=== PATIENT | male | born 1945 | race Caucasian/White ===

== ENCOUNTER 2019-08-02 10:20 | Outpatient (CLI) | payer MEDICARE, OTHER, SELFPAY ==
--- NOTE | ~2019-08-02 | XR_ITS ---
XR chest 2V DATE: 08/02/2019 10:40 INDICATION: Shortness of breath. History of hypertension. TECHNIQUE: PA and lateral views COMPARISON: 03/22/2018 two-view chest FINDINGS: Borderline heart size. Aortic calcification and mild tortuosity. No hilar or mediastinal en largement. No pulmonary infiltrate or consolidation, pleural effusion or pulmonary vascular congestion or pneumo thorax. There is postoperative change in the region of the diaphragmatic hiatus. There is degenerative spurring of the thoracic and lumbar spine. IMPRESSION: No active disease or significant change since 03/22/2018 Reviewed, dictated and finalized at location B. ER[facility] OR MUSEUM ATTENDANT
== END 2019-08-02 10:21 | disposition home or self-care (01) ==
LOC: ANHIMG 10:26
PROVIDERS: PCP Internal Medicine; Visit Provider Internal Medicine
DX: R06.02 Shortness of breath (principal); I10 Essential (primary) hypertension
CPT/HCPCS: 71046

== ENCOUNTER 2019-09-23 08:53 | Emergency (ER) | payer MEDICARE, OTHER, SELFPAY ==
[2019-09-23 09:05] VITALS: BP 155/84; PULSE 65; RESP 16; TEMP 37.1; O2SAT 98
--- NOTE | 2019-09-23 09:14 | ED.EAR ---
HPI - Ear Problem General Chief complaint: Ear Stated complaint: Ear/Nose/Throat Time Seen by Provider: 09/23/19 09:14 Source: patient and RN notes reviewed Mode of arrival: ambulatory Limitations: no limitations History of Present Illness HPI Narrative: 74-year-old male presents with concern for left ear pain. Reports approximately 1 week history of feeling of water on his left ear, popping and clicking sounds. Denies drainage from the ear. He denies sinus congestion, sinus drainage, cough, fever, shortness of breath, headache. MD Complaint: ear pain Related Data Home Medications Medication Instructions Recorded Confirmed xmrwmga-otfodujfropce-vgwmuprd 250 1 tablet PO Q4-6H PRN 04/10/19 mg-250 mg-65 mg tablet lorazepam 0.5 mg tablet 0.5 mg PO TID PRN 04/10/19 meloxicam 15 mg tablet 15 mg PO DAILY 04/10/19 Allergies Allergy/AdvReac Type Severity Reaction Status Date / Time Sulfa (Sulfonamide Allergy Unknown Other Verified 08/03/19 07:32 Antibiotics) Review of Systems Review of Systems: Narrative: CONSTITUTIONAL: Denies malaise, chills, sweats, or fever. EYES: Denies visual changes, redness, or discharge. ENT: Reports rhinorrhea, congestion, sinus pain, and sore throat. Reports right ear pain, denies drainage CARDIOVASCULAR: Denies chest pain, palpitations, or edema. RESPIRATORY: Denies cough or dyspnea. SKIN: Denies rash or itching. MUSCULOSKELETAL: Denies myalgia. NEUROLOGIC: Denies headache. All systems reviewed & are unremarkable except as noted in HPI and below PMFSH Social History Social History Smoking end date: 06/14/88 Alcohol intake: current Comments At time of signature, agree with nursing past medical, surgical, social and family history. There is no relevant family history pertinent to the presenting complaint Exam Narrative: Exam Narrative: GENERAL: Well-appearing, well-nourished, and in no acute distress. HEAD: Normocephalic EYES: PERRLA, conjunctivae clear ENT: Nares clear, turbinates erythematous, clear discharge. Mucous membranes moist. TM pearly kelly with dull light reflex bilaterally, left otitis effusion; no tragal tenderness. Oropharynx not erythematous without lesions. Tonsils not enlarged and without exudate, no drooling, no hoarseness, no trismus, uvula midline. NECK: Supple. No lymphadenopathy CHEST: Clear to auscultation, breath sounds equal. No wheezing, rhonchi, rales, or stridor. No respiratory distress, speaks in full sentences. HEART: Regular rate and rhythm. No murmur heard. SKIN: Warm, dry, no rash. NEURO: Alert and oriented x3. PSYCH: Normal mood and affect Course Course Emergency Course: Patient is aware of diagnosis, understands and agrees to treatment plan. Anticipatory guidance given. Patient agrees to follow-up as directed and is aware of reasons to seek care at the emergency department. Portions of this record may have been created with voice recognition software Vital Signs Vital signs: Vital Signs Temperature 98.7 F 09/23/19 09:05 Pulse Rate 65 09/23/19 09:05 Respiratory Rate 16 09/23/19 09:05 Blood Pressure 155/84 H 09/23/19 09:05 Pulse Oximetry 98 09/23/19 09:05 Temperature 98.7 F 09/23/19 09:05 Pulse Rate 65 09/23/19 09:05 Respiratory Rate 16 09/23/19 09:05 Blood Pressure 155/84 H 09/23/19 09:05 Pulse Oximetry 98 09/23/19 09:05 Reviewed. Patient has history of hypertension Medical Decision Making MDM Narrative Medical decision making narrative: Differential diagnosis considered: Strep pharyngitis, allergic rhinitis, upper respiratory tract infection, sinusitis, rhinosinusitis, nasopharyngitis. viral pharyngitis, otitis media, otitis externa, otitis effusion, cerumen impaction, pneumonia, bronchitis, viral cough syndrome, viral syndrome, and influenza. Exam findings show no acute concerns or changes; patient is non-toxic appearing and is in no distress.
== END 2019-09-23 09:32 | disposition home or self-care (01) ==
PROVIDERS: Emergency Provider Nurse Practitioner; PCP Internal Medicine
DX: H92.02 Otalgia, left ear (principal); Z79.02 Long term (current) use of antithrombotics/antiplatelets; E78.00 Pure hypercholesterolemia, unspecified; I10 Essential (primary) hypertension
CPT/HCPCS: 99213; G0463

== ENCOUNTER 2019-12-30 06:39 | Outpatient (CLI) | payer MEDICARE, OTHER, SELFPAY ==
[2019-12-30 07:23] LABS: Hematocrit 43.6 % (42.0-52.0); Hemoglobin 14.3 g/dL (14.0-18.0)
[2019-12-30 07:44] LABS: Alanine Aminotransferase 19 U/L (4-50); Albumin Level 4.1 g/dL (3.5-5.1); Alkaline Phosphatase 89 U/L (38-126); Aspartate Amino Transferase 23 U/L (17-59); Bilirubin,Total 0.7 mg/dL (0.2-1.3); Blood Urea Nitrogen 21 mg/dL (9-20); Calcium 8.7 mg/dL (8.4-10.2); Carbon Dioxide 28 mmol/L (22-30); Chloride 104 mmol/L (98-107); Cholesterol 175 mg/dL (0-200); Estimated Glomerular Filt Rate > 60; Glucose 109 mg/dL (75-110); HDL Direct 55 mg/dL; Potassium 4.2 mmol/L (3.4-5.0); Sodium 137 mmol/L (137-145); Triglycerides 59 mg/dL (<150)
[2019-12-30 07:55] LABS: LDL Cholesterol Direct 89 mg/dL
[2019-12-30 08:24] LABS: Iron 75 ug/dL (49-181)
== END 2019-12-30 06:40 | disposition home or self-care (01) ==
PROVIDERS: PCP Internal Medicine; Visit Provider Internal Medicine
DX: E78.5 Hyperlipidemia, unspecified (principal); I10 Essential (primary) hypertension; D64.9 Anemia, unspecified
CPT/HCPCS: 36415; 80053; 80061; 83540; 85014; 85018

== ENCOUNTER 2020-08-02 08:15 | Outpatient (RCR) | payer MEDICARE, OTHER, SELFPAY ==
[2020-07-10 09:46] VITALS: BP_SYST 121
--- NOTE | 2020-07-10 10:51 | PTOPEVAL ---
Thank you for referring Rodney Watson to [facility].? The patient is scheduled to be seen for therapy? 2 x/week for 4 weeks. Please review, sign, date and return this plan of care SELENA. I agree with and certify that the following plan of care is medically necessary. Referring Physician Date Attending Provider: Paul Berkowitz DO Referring Provider: SAMRA Outpatient Evaluation Start: 07/10/20 09:43 Freq: Status: Active Protocol: Document 07/10/20 09:46 AVINASH (Rec: 07/10/20 10:50 AVINASH [id number]) Therapy Assessment Status Assessment Status Assessment Status Evaluation Outpatient Past Medical History Past Medical History Source of Past Medical History Patient,Recalled from Previous Visit, Confirmed with Patient /Family Cardiovascular History Hx Hypercholesterolemia Yes Hx Hypertension Yes Musculoskeletal History Hx Other Musculoskeletal Disorders Yes: left shoulder pain Psychosocial History Hx Anxiety Yes Evaluation Information Problem Diagnosis left shoulder pain Onset 1 month Cause unknown Subjective Information Reports he is having left Query Text:As Reported By Patient/ shoulder pain limiting Family performance with daily activities. He pain with reaching activities. Reports pain with putting shirts/ jackets on due to pain with left shoulder. Denies problems with sleeping or carrying objects. He carries most objects with right hand. Denies problems with driving or using the computer. He does not perform a regular fitness program. His activities are mostly sedentary. Pain Assessment Timing of Pain Assessment Timing of Pain Assessment Assessment Pain Scale Pain Scale Used Numeric (1 - 10) Self Report Pain Assessment Left Shoulder(s) Reported Pain Level 0 Pain Description Sharp Pain Frequency Intermittent Lowest Pain Intensity 0 Greatest Pain Intensity 4 Pain Score Pain Score 0: Self Report Interventions Used Pain Relief Interventions Used By None Patient Upper Extremity Range of Motion Scapular/ Shoulder Range of Motion Right Shoulder Flexion - Active 148 Shoulder Extension - Active
--- NOTE | 2020-07-18 12:30 | PCPTNOTE ---
Patient called & cancelled scheduled appointment on 07/19/20.
--- NOTE | 2020-07-30 09:05 | PCPTNOTE ---
Patient called & cancelled scheduled appointment this date due to bad weather.
--- NOTE | 2020-08-02 10:50 | PCPTNOTE ---
Admitting Provider: Attending Provider: Paul Berkowitz DO Patient:Rodney Watson Date of :1945 Discharge Note Patient has been seen for 6 therapy visits from 07/10/20 to 08/02/20. He demonstrates improved shoulder range bilateral, improved shoulder strength, improve pain with ability to perform reaching task without limitations. He demonstrates independence with his home program. He demonstrates improved awareness of joint position and benefits of exercise to improve symptoms and maintain function. The goals have been partially met at this time. Plan for discharge with Rodney to continue with his home program to maintain function. Thank you for referring this patient to [facility]. Please review, sign, date and return this discharge summary SELENA. I have been updated about the patient's current status and I agree with discharge from the above service at this time. Referring Physician Date
== END 2020-08-02 12:25 | disposition home or self-care (01) ==
LOC: ANHPT 08:15
PROVIDERS: Family Provider Internal Medicine; PCP Internal Medicine; Visit Provider Internal Medicine
DX: M25.512 Pain in left shoulder (principal)
CPT/HCPCS: 97110; 97140; 97161

== ENCOUNTER 2020-12-26 06:44 | Outpatient (CLI) | payer MEDICARE, OTHER, SELFPAY ==
[2020-12-26 07:41] LABS: Hematocrit 40.8 % (42.0-52.0); Hemoglobin 13.2 g/dL (14.0-18.0)
[2020-12-26 07:45] LABS: Alanine Aminotransferase 22 U/L (4-50); Alkaline Phosphatase 74 U/L (38-126); Anion Gap 8 mmol/L (8-16); Aspartate Amino Transferase 26 U/L (17-59); Bilirubin,Total 0.7 mg/dL (0.2-1.3); Blood Urea Nitrogen 29 mg/dL (9-20); Calcium 8.9 mg/dL (8.4-10.2); Carbon Dioxide 26 mmol/L (22-30); Chloride 104 mmol/L (98-107); Cholesterol 183 mg/dL (0-200); Estimated Glomerular Filt Rate > 60; Glucose 107 mg/dL (75-110); HDL Direct 58 mg/dL; Potassium 4.1 mmol/L (3.4-5.0); Sodium 138 mmol/L (137-145); Triglycerides 61 mg/dL (<150)
[2020-12-26 07:56] LABS: LDL Cholesterol Direct 80 mg/dL
[2020-12-26 08:11] LABS: Iron 48 ug/dL (49-181)
[2020-12-26 08:21] LABS: Percent Iron Saturation 18 % (20-50)
== END 2020-12-26 06:45 | disposition home or self-care (01) ==
LOC: ANHLAB 06:47
PROVIDERS: PCP Internal Medicine; Visit Provider Internal Medicine
DX: I10 Essential (primary) hypertension (principal); Z79.899 Other long term (current) drug therapy; E78.5 Hyperlipidemia, unspecified; D64.9 Anemia, unspecified; D50.9 Iron deficiency anemia, unspecified
CPT/HCPCS: 36415; 80053; 80061; 83540; 83550; 85014; 85018

== ENCOUNTER 2021-05-24 07:23 | Outpatient (CLI) | payer MEDICARE, OTHER, SELFPAY ==
[2021-05-24 07:57] LABS: Hematocrit 43.4 % (42.0-52.0); Hemoglobin 14.2 g/dL (14.0-18.0); Mean Corpuscular HGB Conc 32.7 g/dl (32-36); Mean Corpuscular Hemoglobin 31.8 pg (26-34); Mean Corpuscular Volume 97.3 fl (80-100); Mean Platelet Volume 9.7 fl (7.4-10.4); Platelet Count Result 259 k/mm3 (150-375); Red Blood Count 4.46 M/mm3 (4.6-6.20); Red Cell Distribution Width 12.9 % (11.5-14.5); White Blood Count 4.4 K/mm3 (4.5-10.0)
[2021-05-24 08:00] LABS: Add Urine Microscopic? NO; Appearance Urine Clear (Clear); Bilirubin Urine Negative (Negative); Blood Urine Negative (Negative); Color Urine Yellow (Yellow); Glucose Urine UA Negative (Negative); Ketones Urine Negative (Negative); Leukocyte Esterase Ur Negative LEU/UL (Negative); Nitrate Urine Negative (Negative); Protein Urine Negative (Negative); Specific Grav Ur 1.021 (1.001-1.035); Urobilinogen Urine Negative mg/dL (<2.0)
[2021-05-24 08:11] LABS: Alanine Aminotransferase 21 U/L (4-50); Albumin Level 4.2 g/dL (3.5-5.1); Alkaline Phosphatase 77 U/L (38-126); Anion Gap 9 mmol/L (8-16); Aspartate Amino Transferase 24 U/L (17-59); Bilirubin,Total 0.7 mg/dL (0.2-1.3); Blood Urea Nitrogen 23 mg/dL (9-20); Calcium 8.9 mg/dL (8.4-10.2); Carbon Dioxide 27 mmol/L (22-30); Chloride 101 mmol/L (98-107); Estimated Glomerular Filt Rate > 60; Glucose 114 mg/dL (65-110); Potassium 3.8 mmol/L (3.4-5.0); Sodium 137 mmol/L (137-145)
[2021-05-24 09:24] LABS: Iron 62 ug/dL (49-181)
[2021-05-24 09:33] LABS: Percent Iron Saturation 22 % (20-50)
== END 2021-05-24 07:24 | disposition home or self-care (01) ==
PROVIDERS: PCP Internal Medicine; Visit Provider Nurse Practitioner
DX: D50.9 Iron deficiency anemia, unspecified (principal); R63.4 Abnormal weight loss; I10 Essential (primary) hypertension
CPT/HCPCS: 36415; 80053; 81003; 83540; 83550; 84443; 85027

== ENCOUNTER 2021-05-30 09:57 | Outpatient (CLI) | payer MEDICARE, OTHER, SELFPAY ==
--- NOTE | ~2021-05-30 | CT_ITS ---
EXAMINATION: CT chest abdomen pelvis wo con DATE: 05/30/2021 10:40 INDICATION: Hypotension weight loss TECHNIQUE: Transaxial computed tomographic images of the chest, abdomen, and pelvis were obtained wit hout intravenous contrast. The dose-length product (DLP) was 986.79 mGy-cm. Automated exposure contro l and iterative reconstruction technique were employed. COMPARISON: 03/08/2018 FINDINGS: CHEST CT: There is chronic atelectasis or scarring of the left upper lobe. The lungs are free of acute opacitie s. There is no pleural effusion or pneumothorax. No pathologically enlarged thoracic lymph nodes are identified. The heart size is normal. Calcified coronary artery atherosclerosis is noted. There is a soft tissue lipoma in the right axillary region. There is moderate thoracic spondylosis. ABDOMEN/PELVIS CT: There are surgical changes at the gastroesophageal junction. The liver, spleen, pancreas, gallbladder , and adrenal glands are normal. There is a 6 cm cyst of the left kidney. The right kidney is unremar kable. No pathologically enlarged abdominal or pelvic lymph nodes are identified. There is no free in traperitoneal gas or evidence of bowel obstruction. Colonic diverticulosis is present without evidenc e of diverticulitis. The appendix is normal. There is a right inguinal hernia containing fat. Changes of left inguinal hernia repair are noted. There is severe lumbar spondylosis. IMPRESSION: 1. No CT correlate for the patient's symptoms. Reviewed, dictated and finalized at location A. CAL ASSISTANT OB GYN
== END 2021-05-30 09:58 | disposition home or self-care (01) ==
LOC: ANHIMG 10:04
PROVIDERS: PCP Internal Medicine; Visit Provider Nurse Practitioner
DX: R63.4 Abnormal weight loss (principal)
CPT/HCPCS: 71250; 74176

== ENCOUNTER 2021-08-08 08:08 | Outpatient (CLI) | payer MEDICARE, OTHER, SELFPAY ==
[2021-08-08 09:47] LABS: Prostate Specific Antigen 2.5 ng/mL (< OR = 4.0)
== END 2021-08-08 08:09 | disposition home or self-care (01) ==
PROVIDERS: PCP Internal Medicine; Visit Provider Internal Medicine
DX: Z12.5 Encounter for screening for malignant neoplasm of prostate (principal)
CPT/HCPCS: 36415; 84153; G0103

== ENCOUNTER 2022-02-09 06:36 | Outpatient (CLI) | payer MEDICARE, OTHER, SELFPAY ==
[2022-02-09 06:54] LABS: Basophils Percent Auto 0.7 % (0.2-1.2); Eosinophils Absolute Auto 0.2 K/mm3 (0-0.3); Eosinophils Percent Auto 3.4 % (0-4.4); Hematocrit 43.9 % (42.0-52.0); Immature Granulocyte Absolute 0.01 K/mm3 (0.00-0.031); Immature Granulocyte Percent A 0.2 % (0-0.5); Lymphocytes Absolute Auto 0.88 K/mm3 (0.9-3.2); Mean Corpuscular HGB Conc 31.9 g/dl (32-36); Mean Corpuscular Volume 97.1 fl (80-100); Mean Platelet Volume 9.2 fl (7.4-10.4); Monocytes Absolute Auto 0.4 K/mm3 (0.1-0.6); Monocytes Percent Auto 8.8 % (2.6-8.5); Neutrophils Percent Auto 66.9 % (45.5-73.1); Platelet Count Result 243 k/mm3 (150-375); Red Blood Count 4.52 M/mm3 (4.6-6.20); Red Cell Distribution Width 13.1 % (11.5-14.5); White Blood Count 4.4 K/mm3 (4.5-10.0)
[2022-02-09 07:04] LABS: Alanine Aminotransferase 24 U/L (6-50); Albumin Level 4.2 g/dL (3.5-5.1); Alkaline Phosphatase 78 U/L (38-126); Anion Gap 3 mmol/L (8-16); Aspartate Amino Transferase 24 U/L (17-59); Bilirubin,Total 0.5 mg/dL (0.2-1.3); Blood Urea Nitrogen 25 mg/dL (9-20); Calcium 8.5 mg/dL (8.4-10.2); Carbon Dioxide 27 mmol/L (22-30); Chloride 106 mmol/L (98-107); Cholesterol 180 mg/dL (0-200); Estimated Glomerular Filt Rate > 60; Glucose 133 mg/dL (65-110); HDL Direct 66 mg/dL; Potassium 4.1 mmol/L (3.4-5.0); Sodium 136 mmol/L (137-145); Triglycerides 70 mg/dL (<150)
[2022-02-09 07:11] LABS: Iron 61 ug/dL (49-181)
[2022-02-09 07:15] LABS: LDL Cholesterol Direct 79 mg/dL
[2022-02-09 07:20] LABS: Percent Iron Saturation 21 % (20-50)
[2022-02-09 09:12] LABS: Hemoglobin A1C 5.3 % (<5.7)
== END 2022-02-09 06:37 | disposition home or self-care (01) ==
PROVIDERS: PCP Internal Medicine; Visit Provider Internal Medicine
DX: G47.62 Sleep related leg cramps (principal); I10 Essential (primary) hypertension; Z79.899 Other long term (current) drug therapy; E78.5 Hyperlipidemia, unspecified; D50.9 Iron deficiency anemia, unspecified; R73.01 Impaired fasting glucose
CPT/HCPCS: 36415; 80053; 80061; 83036; 83540; 83550; 85025

== ENCOUNTER 2022-08-06 07:28 | Outpatient (CLI) | payer MEDICARE, OTHER, SELFPAY ==
[2022-08-06 07:56] LABS: Alanine Aminotransferase 35 U/L (6-50); Albumin Level 4.2 g/dL (3.5-5.1); Alkaline Phosphatase 72 U/L (38-126); Anion Gap 5 mmol/L (8-16); Aspartate Amino Transferase 49 U/L (17-59); Bilirubin,Total 1.1 mg/dL (0.2-1.3); Blood Urea Nitrogen 27 mg/dL (9-20); Calcium 8.5 mg/dL (8.4-10.2); Carbon Dioxide 30 mmol/L (22-30); Chloride 108 mmol/L (98-107); Cholesterol 173 mg/dL (0-200); Estimated Glomerular Filt Rate > 60; Glucose 114 mg/dL (65-110); HDL Direct 58 mg/dL; Potassium 3.7 mmol/L (3.4-5.0); Sodium 143 mmol/L (137-145); Triglycerides 54 mg/dL (<150)
[2022-08-06 07:57] LABS: Hemoglobin A1C 5.3 % (<5.7)
[2022-08-06 08:08] LABS: LDL Cholesterol Direct 78 mg/dL
== END 2022-08-06 07:29 | disposition home or self-care (01) ==
PROVIDERS: PCP Internal Medicine; Visit Provider Internal Medicine
DX: R73.01 Impaired fasting glucose (principal); E78.5 Hyperlipidemia, unspecified; I10 Essential (primary) hypertension; Z79.899 Other long term (current) drug therapy
CPT/HCPCS: 36415; 80053; 80061; 83036

== ENCOUNTER 2022-12-13 13:30 | Outpatient (CLI) | payer MEDICARE, OTHER, SELFPAY ==
--- NOTE | ~2022-12-13 | MR_ITS ---
EXAMINATION: MR brain/brain stem wo con DATE: 12/13/2022 14:16 INDICATION: Dementia TECHNIQUE: Magnetic resonance imaging (MRI) of the brain and brainstem was performed without intraven ous contrast. Sequences included sagittal and axial T1-weighted SE, axial diffusion-weighted FS SE, a xial 3D SWAN, axial T2*-weighted GRE, axial T2-weighted FLAIR, and axial T2-weighted FSE. Postcontras t axial and coronal T1-weighted SE was obtained. Apparent diffusion coefficient (ADC) maps were creat ed. COMPARISON: None. FINDINGS: There are no areas of restricted diffusion to suggest acute infarction. No intracranial hemorrhage or abnormal intracranial mass lesion. There are scattered areas of nonspecific increased T2-weighted si gnal intensity in the cerebral white matter, predominantly involving the deep and periventricular whi te matter. There are no intraparenchymal signal abnormalities seen on the other pulse sequences. Symm etric prominence of the sulci and ventricles consistent with moderate age-appropriate diffuse cerebra l volume loss. There are no abnormal extra-axial fluid collections. Flow voids are seen in the cerebr al arteries on the T2-weighted sequences consistent with their expected patency. Changes of bilateral intraocular lens replacement. Visualized orbits and soft tissues are unremarkable. IMPRESSION: 1. No acute intracranial process. 2. Age-related changes including moderate diffuse volume loss and mild scattered periventricular pred ominant white matter T2 hyperintensity consistent with chronic small vessel ischemic disease. Reviewed, dictated and finalized at location A. IMPRESSION: 1. No acute intracranial process. 2. Age-related changes including moderate diffuse volume loss and mild scattere d periventricular predominant white matter T2 hyperintensity consistent with ch ronic small vessel ischemic disease.
== END 2022-12-13 13:31 | disposition home or self-care (01) ==
PROVIDERS: PCP Nurse Practitioner; Visit Provider Nurse Practitioner
DX: R41.3 Other amnesia (principal)
CPT/HCPCS: 70551

== ENCOUNTER 2023-02-23 08:17 | Outpatient (CLI) | payer MEDICARE, OTHER, SELFPAY ==
[2023-02-23 09:36] LABS: Hematocrit 42.4 % (42.0-52.0); Hemoglobin 13.8 g/dL (14.0-18.0); Mean Corpuscular HGB Conc 32.5 g/dl (32-36); Mean Corpuscular Hemoglobin 31.2 pg (26-34); Mean Corpuscular Volume 95.7 fl (80-100); Mean Platelet Volume 10.2 fl (7.4-10.4); Platelet Count Result 239 k/mm3 (150-375); Red Blood Count 4.43 M/mm3 (4.6-6.20); Red Cell Distribution Width 12.4 % (11.5-14.5); White Blood Count 6.2 K/mm3 (4.5-10.0)
[2023-02-23 09:39] LABS: Alanine Aminotransferase 36 U/L (6-50); Albumin Level 4.2 g/dL (3.5-5.1); Alkaline Phosphatase 70 U/L (38-126); Anion Gap 6 mmol/L (8-16); Aspartate Amino Transferase 32 U/L (17-59); Bilirubin,Total 0.8 mg/dL (0.2-1.3); Blood Urea Nitrogen 24 mg/dL (9-20); Calcium 8.8 mg/dL (8.4-10.2); Carbon Dioxide 30 mmol/L (22-30); Chloride 105 mmol/L (98-107); Estimated Glomerular Filt Rate > 60; Glucose 123 mg/dL (65-110); Potassium 3.3 mmol/L (3.4-5.0); Sodium 141 mmol/L (137-145)
[2023-02-23 10:11] LABS: Iron 57 ug/dL (49-181)
[2023-02-23 10:16] LABS: Hemoglobin A1C 5.4 % (<5.7)
[2023-02-23 10:21] LABS: Percent Iron Saturation 19 % (20-50)
== END 2023-02-23 08:18 | disposition home or self-care (01) ==
PROVIDERS: PCP Nurse Practitioner; Visit Provider Nurse Practitioner
DX: D50.9 Iron deficiency anemia, unspecified (principal); I10 Essential (primary) hypertension; R73.01 Impaired fasting glucose
CPT/HCPCS: 36415; 80053; 83036; 83540; 83550; 85027

== ENCOUNTER 2023-08-06 12:59 | Outpatient (CLI) | payer MEDICARE, OTHER, SELFPAY ==
--- NOTE | 2023-08-06 13:15 | ECG_ITS ---
Measurements Intervals [place] Rate: 66 P: UT: 0 QRS: 15 QRSD: 110 T: 14 QT: 415 QTc: 438 Interpretive Statements PROBABLE SINUS RHYTHM WITH PREMATURE ATRIAL CONTRACTIONS MARKED bASELINE ARTIFACT BORDERLINE ECG NO PREVIOUS ECG AVAILABLE FOR COMPARISON Electronically Signed On 08-07-2023 14:32:49 PRODUCT SAFETY MANAGER by Edson Martinez M.D.
== END 2023-08-06 13:00 | disposition home or self-care (01) ==
LOC: ANHSURGERY 13:05
PROVIDERS: PCP Nurse Practitioner; Visit Provider Surgery
DX: Z01.818 Encounter for other preprocedural examination (principal); I10 Essential (primary) hypertension; K40.91 Unilateral inguinal hernia, without obstruction or gangrene, recurrent; R93.1 Abnormal findings on diagnostic imaging of heart and coronary circulation
CPT/HCPCS: 36415; 86850; 86900; 86901; 93005

== ENCOUNTER 2023-08-10 00:54 | Day surgery (SDC) | payer MEDICARE, OTHER, SELFPAY ==
[2023-08-06 08:37] VITALS: BMI 25.6
--- NOTE | 2023-08-06 08:49 | PC.NURSE ---
PRE-OP INSTRUCTIONS, PLEASE READ CAREFULLY Report to the Outpatient Waiting Room, entrance under the green pavilion located off [facility], at time _1000_ on date _08/10/23_. Planned Procedure Time: _1200_. Time changes happen often and if your time is changed the preop area will call you the afternoon before. - You and your visitor will be asked to self-screen and do not enter if you have any COVID symptoms. - A mask is optional within the hospital at this time. Patients may have clear liquids (water, carbonated beverages, clear teas, apple juice) until 3 hours prior to surgery (0900 AM) with a maximum of 20 ounces. - No food from midnight until time of surgery Take the following medications with a SIP of water the morning of surgery: _AMLODIPINE, MEMANTINE, SERTRALINE_ DO NOT STOP ANY OF YOUR OTHER PRESCRIPTION MEDICATIONS PRIOR TO SURGERY ?EXCEPT THE FOLLOWING Medications to discontinue _EXCEDRIN PER DR. TINAJERO'S INSTRUCTIONS_ Please no make-up, nail nepalese, hairspray, perfume, deodorant, or body powder the day of surgery. No jewelry (including any body piercings) or valuables the day of surgery, leave them at home. Please take a shower or bath the night before, or the morning of, surgery with an antibacterial soap. Wear comfortable, loose fitting clothing. - Jewelry must be removed prior to entering the operating room. Rings and piercings that are not removed may be cut off. - The hospital will not accept responsibility for valuables. - Please leave all valuables, including medications, at home the day of surgery. If you are going home after surgery, a licensed special events driver must drive you home. - NO public transportation without another adult if you receive anesthesia. - We recommend that an adult stay with you for 24 hours following discharge. - We also recommend that you do not drive, make important decision, drink alcoholic beverages, or take any drugs that were not prescribed by your health care provider for at least 24 hours after your discharge time. Follow any additional instructions given to you from your surgeon. If you or anyone in your household have experienced Covid symptoms in the past week, please notify your surgeon or the nurse liaison at the phone number below for possible testing. Telephone instructions given to _PT'S SPOUSE[employer]TANA_and asked if any additional questions and then verbalized understanding. Patient advised to call surgeon office or pre surgery nurse liaison [phone] if any additional questions.
[2023-08-10] VITALS (8 sets, daily range): BP systolic 128–157; BP diastolic 65–82; PULSE 66–85; RESP 12–18; TEMP 36.3–36.9; O2SAT 98–100
[2023-08-10] MEDS: ACETAMINOPHEN 500 MG TABLET 1000 MG PO (10:30)
[2023-08-10] MEDS: KETOROLAC 15 MG/ML VIAL (*BKC) IV PUSH (10:30)
[2023-08-10] MEDS: LACTATED RINGERS 1,000 ML 30 ML IV CONT ×2 (10:30→13:56)
--- NOTE | 2023-08-10 11:32 | WPDANESEPPF ---
Anes - Initial Pre Proc Eval Procedure: Operation Date: 08/10/23 12:00 Proposed Procedures p Robotic Assisted Recurrent Right Inguinal Hernia Repair with Mesh - Leatha Weiss MD Date/Time: 08/10/23 11:32 Surgeon: Leatha Weiss MD Pre Op Diagnosis: recurrent right inguinal hernia Patient Data Age: 78 Gender: M Height: 1.75 m Weight: 78.63 kg Allergies Allergy/AdvReac Type Severity Reaction Status Date / Time venom-wasp Allergy Severe Swelling Verified 08/06/23 08:31 Sulfa (Sulfonamide Allergy Mild Rash Verified 08/06/23 08:31 Antibiotics) Home Medications Medication Instructions Recorded Confirmed Type njpeqrz-xcyulvusmjfkr-hfueppxo 250 1 tablet PO DAILY 04/10/19 08/06/23 History mg-250 mg-65 mg tablet (Excedrin Migraine) amlodipine 5 mg tablet 5 mg PO DAILY #90 tabs 03/24/23 08/06/23 Rx memantine 10 mg tablet 10 mg PO BID #180 tabs 06/16/23 08/06/23 Rx omeprazole 40 mg capsule,delayed 40 mg PO DAILY #90 caps 06/25/23 08/06/23 Rx release donepezil 5 mg tablet 5 mg HS 08/06/23 08/06/23 History sertraline 100 mg tablet 100 mg PO DAILY #90 tabs 08/10/23 Rx Patient hx anesthesia problems: none Family hx anesthesia problems: none Results Review: All pre-operative results and documents have been reviewed as part of the pre-operative evaluation. [facility] Past Medical History Medical History Acute maxillary sinusitis, unspecified Benign essential hypertension Benign prostatic hyperplasia Chronic GERD Iron deficiency anemia Pneumonia due to infectious organism Surgical History Surgical History H/O transurethral resection of prostate History of hernia repair Family History Family History Mother Hypertension Family history of coronary artery disease Father Family history of primary malignant neoplasm of liver Social History Social History Smoking packs per day: 2 Smoking cigarettes per day: 40.0 Years smoked: 35 Smoking pack-years: 70.00 Smoking status: Former smoker Tobacco type: cigarettes Second hand tobacco smoke exposure: No Smoking end date: 06/14/78 Alcohol intake: current Drinks per week: 2 Alcohol use details: 1-2 WEEK Substance use: never Substance use type: does not use Lack of Transportation: No Lack of Food: Never True Current Housing: I Have Housing Concerned About Future Housing: No Difficulty Paying Gas/Electric Bills: No Difficulty Paying for Meds: No Currently Unemployed: No Education: Bachelor's Degree Difficulty w/ Childcare or Family Care: No Living arrangements: with family Spiritual care concerns: No Anes - Eval Final PreProcedure Day of Procedure 08/10/23 11:32 Patient weight: normal Heart: regular rate and rhythm Lungs: clear to auscultation Airway: Mallampati scale class II Neurological: alert and oriented Last oral intake: >/= 8 hours ASA classification: III Emergent: no Anesthetic plan: proceed Anesthesia type and monitoring: general ETT and standard monitoring Results Review: All pre-operative results and documents have been reviewed as part of the pre-operative evaluation. Informed Consent: The patient's anesthetic plan and its attendant risks and benefits were discussed with the patient/family/POA. Questions were solicited and answers provided to the satisfaction of the patient/family/POA.
--- NOTE | 2023-08-10 11:52 | WPDHPUPDATE1 ---
History and Physical Update Update Date/Time: 08/10/23 11:52 History and Physical has been reviewed, including an updated exam of the patient. There are NO changes in the patient's condition. Risks, benefits, and alternatives have been discussed and questions answered. Patient agrees to proceed with procedure.
[2023-08-10] MEDS: ceFAZolin 2 GM/D5W 50 ML 2 GM/50 ML BAG IVPB (12:11)
[2023-08-10] MEDS: BUPIVACAINE/EPINEPHRINE 0.5% 30 ML VIAL INFILTRATE (12:39)
--- NOTE | 2023-08-10 13:42 | W.PM.PROC2 ---
Procedure Note - Detailed Date of Procedure 08/10/23 Pre-op Diagnosis recurrent right inguinal hernia Post-op Diagnosis Same Procedure Performed robotic assisted recurrent right inguinal hernia repair with mesh Surgeon Leatha Weiss MD Anesthesia General Indications 78-year-old male with progressively worsening right inguinal hernia over the last few months. Workup significant for recurrent right inguinal hernia as patient had history of right inguinal hernia in the past. Findings pantaloon recurrent right inguinal hernia Description of Procedure Patient was brought into the operating room and placed in the supine position. After adequate induction of general anesthesia, the patient was prepped and draped in normal sterile fashion. A time-out was then done to verify the patient's identity, as well as the procedure being performed. Began by making a 8 mm incision in the supraumbilical region, a Veress needle was then placed into the peritoneal cavity. CO2 gas was then insufflated and after adequate pneumoperitoneum was achieved, the Veress needle was removed. I then placed an 8 mm trocar through this incision. I then placed the endoscope through this trocar site and under direct visualization placed 2 further 8 mm ports in the right and left mid abdomen. The [employer] robot was then docked to the 3 trocar sites. I then scrubbed out and went to the robotic console. Upon examining the pelvis, it was noted that the patient had a large right inguinal hernia with both direct and indirect components. The left side was examined and no hernia defect was noted. I began by making a preperitoneal flap approximately 6 cm superior to the defects. This flap was carried medially past the umbilical ligaments in laterally to the transversalis. I then began dissection of my medial compartment taking this down to the pubic tubercle. A large direct defect was noted at this point with some incarcerated preperitoneal fat. This was reduced back into the preperitoneal space. I then began the lateral dissection taking this down to the transversalis fascia. Once these compartments were achieved, I began dissection around the cord structures. A moderate indirect hernia was noted at this point. Using careful dissection, was able to reduce indirect hernia sac off the cord structures. Once this was adequately done, I went ahead and placed a large piece of 3D Max mesh into the abdominal cavity. The mesh was carefully positioned, centering the center of the mesh over the larger direct defect. Once this was done, was very satisfied with our repair. Using 3-0 Vicryl sutures, I tacked the mesh medially to Brent's ligament. Two lateral sutures were placed from the mesh to the transversalis fascia. I then closed the peritoneal flap with a running 2.0 V Lock suture. The abdomen was then desufflated, and all ports were removed. All incisions were then closed with the 4.0 monocryl suture. Dermabond was placed on each wound. The patient tolerated the procedure well, was extubated in the operating room postoperatively, and will now be transferred to the recovery room in stable condition. Implants large 3DMax mesh Estimated Blood Loss 10 Drains No Packing No Pathology None sent Complications No immediate complications Condition Stable Disposition PACU [facility] Billing Surgery - Charge Forward: Surgery Billing
[2023-08-10] MEDS: oxyCODONE HCL (*CRX) 2.5 MG TAB IR PO (15:35)
== END 2023-08-10 15:50 | disposition home or self-care (01) ==
PROVIDERS: PCP Nurse Practitioner; Visit Provider Surgery
PROC: 8E0Y4CZ Robotic Assisted Procedure of Lower Extremity, Percutaneous Endoscopic Approach (ICD-10-PCS; CPT 49650; principal; 2023-08-10 12:00)
DX: K40.91 Unilateral inguinal hernia, without obstruction or gangrene, recurrent (principal); I10 Essential (primary) hypertension; K21.9 Gastro-esophageal reflux disease without esophagitis; Z87.891 Personal history of nicotine dependence
CPT/HCPCS: 49651; S2900; A9270; C1781; J0330; J0690; J1100; J1170; J1885; J2405; J2704; J3010; J7120

== ENCOUNTER 2023-12-30 11:07 | Emergency (ER) | payer MEDICARE, OTHER, SELFPAY ==
[2023-12-30 11:09] VITALS: BP 160/83; PULSE 65; RESP 17; TEMP 36.3; O2SAT 99
--- NOTE | 2023-12-30 13:04 | ED.WOUNDLAC ---
HPI - Wound/Laceration General Chief Complaint: Wound/Laceration Stated Complaint: right hand laceration Time Seen by Provider: 12/30/23 12:46 Source: patient and family Mode of arrival: ambulatory Limitations: no limitations History of Present Illness HPI narrative: Left hand dominant male presents with right hand laceration sustained when he reached into his toolbox and accidentally sustained a puncture wound at the base of his palm. Not on anticoagulation. Tetanus shot up to date, approximately 5 years ago by estimation. Related Data Home Medications Medication Instructions Recorded Confirmed [id number]-[id number]-[id number] 250 1 tablet PO DAILY 04/10/19 08/26/23 mg-250 mg-65 mg tablet (Excedrin Migraine) donepezil 5 mg tablet 5 mg HS 08/06/23 08/26/23 Allergies Allergy/AdvReac Type Severity Reaction Status Date / Time venom-wasp Allergy Severe Swelling Verified 12/30/23 11:08 Sulfa (Sulfonamide Allergy Mild Rash Verified 12/30/23 11:08 Antibiotics) [facility] Past Medical History Medical History Acute maxillary sinusitis, unspecified Benign essential hypertension Benign prostatic hyperplasia Chronic GERD Iron deficiency anemia Left hand dominant Pneumonia due to infectious organism Surgical History Surgical History H/O transurethral resection of prostate History of hernia repair Family History Family History Mother Hypertension Family history of coronary artery disease Father Family history of primary malignant neoplasm of liver Social History Social History Smoking packs per day: 2 Smoking cigarettes per day: 40.0 Years smoked: 35 Smoking pack-years: 70.00 Smoking status: Former smoker Tobacco type: cigarettes Second hand tobacco smoke exposure: No Smoking end date: 06/14/78 Alcohol intake: current Drinks per week: 2 Alcohol use details: 1-2 WEEK Substance use: never Substance use type: does not use Lack of Transportation: No Lack of Food: Never True Current Housing: I Have Housing Concerned About Future Housing: No Difficulty Paying Gas/Electric Bills: No Difficulty Paying for Meds: No Currently Unemployed: No Education: Bachelor's Degree Difficulty w/ Childcare or Family Care: No Living arrangements: with family Spiritual care concerns: No Exam Narrative: GENERAL: Well-appearing, well-nourished, and in no acute distress. HEAD: Normocephalic, atraumatic. EYES: Non injected, non icteric ENT: Nares clear, no rhinorrhea or epistaxis. NECK: Supple. CHEST: Speaking in full sentences. No respiratory distress. HEART: Regular rate and rhythm. Strong 2+ radial pulse on right. Brisk capillary refill in fingers. ABDOMEN: Soft, nondistended. EXTREMITIES: Normal range of motion of right arm/hand. Able to make fist and extend fingers. Flexion/extension of wrist intact. Subcentimeter puncture wound at base of right palm, bleeding well controlled. SKIN: Warm, dry NEURO: No focal deficits. Alert and oriented x3. Left hand dominant. PSYCH: Normal mood and affect. Course Vital Signs Vital signs: Vital Signs Temperature 97.4 F L 12/30/23 11:09 Pulse Rate 65 12/30/23 11:09 Respiratory Rate 17 12/30/23 11:09 Blood Pressure 160/83 H 12/30/23 11:09 Pulse Oximetry 99 12/30/23 11:09 Oxygen Delivery Room Air 12/30/23 11:09 Temperature 97.4 F L 12/30/23 11:09 Pulse Rate 65 12/30/23 11:09 Respiratory Rate 17 12/30/23 11:09 Blood Pressure 160/83 H 12/30/23 11:09 Pulse Oximetry 99 12/30/23 11:09 Oxygen Delivery Room Air 12/30/23 11:09 MDM - Wound/Laceration MDM Narrative Medical decision making narrative: Left hand dominant male sustained subcentimeter puncture wound to ba
== END 2023-12-30 13:26 | disposition home or self-care (01) ==
LOC: ANHED 13:18
PROVIDERS: Emergency Provider Student in an Organized Health Care Education/Training Program; PCP Nurse Practitioner
DX: S61.431A Puncture wound without foreign body of right hand, initial encounter (principal); I10 Essential (primary) hypertension; N40.0 Benign prostatic hyperplasia without lower urinary tract symptoms; K21.9 Gastro-esophageal reflux disease without esophagitis; D50.9 Iron deficiency anemia, unspecified; Z87.01 Personal history of pneumonia (recurrent); Z90.79 Acquired absence of other genital organ(s); Z87.891 Personal history of nicotine dependence; Z79.899 Other long term (current) drug therapy; W27.2XXA Contact with scissors, initial encounter
CPT/HCPCS: 99283

== ENCOUNTER 2024-01-04 14:12 | Outpatient (CLI) | payer MEDICARE, OTHER, SELFPAY ==
--- NOTE | ~2024-01-04 | XR_ITS ---
XR shoulder LT min 2V Ordering provider: Cristi Mullen APRN History: . M25.512 - Pain in left shoulder AFTER LIFTING HEAVY OBJECT . Comparison: None. FINDINGS: BONES: No acute fracture or dislocation. JOINT SPACES: The acromioclavicular joint shows mild osteoarthritic changes. The glenohumeral joint i s normal. SOFT TISSUES: Normal. IMPRESSION: No acute osseous abnormality left shoulder. Reviewed, dictated and finalized at location A.
== END 2024-01-04 14:13 | disposition home or self-care (01) ==
LOC: ANHIMG 14:16
PROVIDERS: PCP Nurse Practitioner; Visit Provider Nurse Practitioner
DX: M25.512 Pain in left shoulder (principal); G89.29 Other chronic pain
CPT/HCPCS: 73030

== ENCOUNTER 2024-04-04 11:00 | Outpatient (RCR) | payer MEDICARE, OTHER, SELFPAY ==
--- NOTE | 2024-03-02 10:48 | PTOPEVAL1 ---
Assessment and note entered by Kamron Galdamez Evaluation Information Assessment Status Evaluation Diagnosis Impingement syndrome left shoulder ICD-10 Condition Codes (PT) M25.512 Onset 12/31/23 Subjective Information Pt. reports that he has been having left shoulder pain for a couple months. Pt. reports that pain began while he was moving and performed some heavier lifting. He states that pain gradually increased since that day. He states that pain has not improved or decreased. He states that pain is noted with reaching overhead and reaching behind his back. He still completes all activities below shoulder height, but is limited with overhead movement. He states that he is left hand dominant. He states that sleeping is not a problem. He states that he had no trouble with overhead activity prior to the past couple months. He states that his main priority for therapy is to be able to reach overhead with the left arm without pain. Reported Pain Level Pain Score 4: Self Report Assessment PT Clinical Summary Pt. is an 79 year old male who enters the clinic with left shoulder pain due to impingement syndrome. He presents with impaired postural awareness, impaired left u.e. strength, pain and impaired left u.e. ROM. While pt. provides on 2. 75% limitation with the Quick DASH, objective deficits are more notable, and he does have reported dementia from his , which may result in misinterpretation of the outcome tool. Continued skilled PT is indicated in order to improve these areas to allow for improved ability to complete overhead activities. Plan of Care Interventions Electrical Stimulation,Hot Pack/Cold Pack,Manual Therapy,Neuro Re-education,Patient/Caregiver Educati,Therapeutic Activities,Therapeutic Exercise Treatment Frequency and 2x/week x 10 visits Duration These treatments will address the objective and functional deficits as defined above. The patient will be advanced safely and appropriately in order for the patient to progress towards his/her prior level of function. Additional exercises will be introduced and as well as a comprehensive home exercise program upon discharge, if needed, ?to ensure carryover of functional gains achieved in the clinic. This treatment plan has been reviewed and agreement upon by the patient.
--- NOTE | 2024-03-02 10:49 | OPREHPOC ---
Outpatient Therapy Plan of Care This is a Multidisciplinary Plan of Care that may contain components documented by all disciplines (PT, OT, and ST.) PT Problem 1 PT Problem #1 Knowledge Deficit PT Goal 1 Goal / Goal Update Pt. will be independent with a HEP addressing strength and postural awareness Target Visit 2 PT Problem 2 PT Problem #2 Impaired Range of Motion PT Goal 1 Goal / Goal Update Pt. will achieve 135 degrees active left shoulder flexion and 90 degrees active left shoulder ER. Pt. will improve ROM to complete overhead reaching and grooming activities without limitaiton Target Visit 10 PT Problem 3 PT Problem #3 Impaired Functional Mobil PT Goal 1 Goal / Goal Update Pt. will demonstrates ability to lift 5# object overhead in repetition without pain to 135 degrees PT Problem 4 PT Problem #4 Impaired Strength PT Goal 1 Goal / Goal Update Pt. will present with 5/5 proximal left u.e. strength Target Visit 10
--- NOTE | 2024-03-16 08:18 | PCPTNOTE ---
Pt canceled his appointment today due to being sick.
--- NOTE | 2024-04-04 11:33 | PTOPDC ---
Assessment and note entered by Chika Vazquez, PT Discharge report Assessment Status Discharge Diagnosis Impingement syndrome left shoulder ICD-10 Condition Codes (PT) M25.512 Onset 12/31/23 Subjective Information shoulder is doing good; some lump in shoulder when reach overhead and have weight in his hand, but Ok, does not last long; tends to use his R arm more with doing things ( his non-dominant hand) agrees to discharge from therapy at this time. Reported Pain Level Pain Score 0: Self Report Additional Pain Score Comments no pain in the past week of L shoulder; when reach overhead, have lump in shoulder; Assessment PT Clinical Summary Juanito has received 9 PT sessions. Compared to the initial evaluation: pain rating from 0-4/10 to 0/10 pain, but has popping and cracking of shoulder and mild pain with lifting a weight too high overhead; increase strength of L shoulder--able to perform motions with 5# hand weight; self assessment with Quick DASH rating of 2% limitation in activity; education completed for HEP and position/posture of shoulder; Active ROM of L shoulder: flexion 120', abduction 115', IR- reach behind back, palm to above waist and ER- reach to back of head- palm to back of head. The goals were partially met. Discharge PT, he is to continue with his HEP. Plan of Care PT Services Indicated No
== END 2024-04-04 16:53 | disposition home or self-care (01) ==
LOC: ANHPT 11:00
PROVIDERS: PCP Nurse Practitioner; Visit Provider Orthopaedic Surgery
DX: M75.42 Impingement syndrome of left shoulder (principal)
CPT/HCPCS: 97014; 97110; 97140; 97161; G0283

== ENCOUNTER 2024-04-28 14:25 | Outpatient (CLI) | payer MEDICARE, OTHER, SELFPAY ==
--- NOTE | ~2024-04-28 | US_ITS ---
EXAMINATION: US soft tissue groin LT DATE: 04/28/2024 15:04 INDICATION: Left lower quadrant abdominal pain TECHNIQUE: Multiple grayscale and Doppler ultrasound images of the region of concern at the left groi n were obtained. COMPARISON: None FINDINGS: Small fat and fluid containing left inguinal hernia. Fluid-filled loops of bowel and small amount of ascites are seen scattered throughout the abdomen. No evident herniated bowel. IMPRESSION: 1. Small amount of ascites with extension of a small amount of fat and fluid into the left inguinal c anal. Reviewed, dictated and finalized at location B. [employer] IMPRESSION: 1. Small amount of ascites with extension of a small amount of fat and fluid in to the left inguinal canal.
== END 2024-04-28 14:26 | disposition home or self-care (01) ==
LOC: MICIMG 14:26
PROVIDERS: PCP Nurse Practitioner; Visit Provider Surgery
DX: K40.91 Unilateral inguinal hernia, without obstruction or gangrene, recurrent (principal); R18.8 Other ascites
CPT/HCPCS: 76882

== ENCOUNTER 2024-05-04 09:43 | Outpatient (CLI) | payer MEDICARE, OTHER, SELFPAY ==
[2024-05-04 10:11] LABS: Hematocrit 34.4 % (42.0-52.0); Hemoglobin 10.9 g/dL (14.0-18.0); Mean Corpuscular HGB Conc 31.7 g/dl (32-36); Mean Corpuscular Hemoglobin 28.8 pg (26-34); Mean Platelet Volume 9.5 fl (7.4-10.4); Platelet Count Result 478 k/mm3 (150-375); Red Blood Count 3.78 M/mm3 (4.6-6.20); Red Cell Distribution Width 13.9 % (11.5-14.5); White Blood Count 17.5 K/mm3 (4.5-10.0)
[2024-05-04 10:24] LABS: Add Urine Microscopic? YES; Appearance Urine Clear (Clear); Bacteria Urine None Seen /hpf; Bilirubin Urine Negative (Negative); Blood Urine Negative (Negative); Color Urine Dark Yellow (Yellow); Glucose Urine UA Negative (Negative); Hyaline Casts Urine Present /lpf; Ketones Urine Trace mg/dL (Negative); Leukocyte Esterase Ur Negative LEU/UL (Negative); Mucus Urine Present /lpf; Need Manual Microscopic Reviewed; Nitrate Urine Negative (Negative); Protein Urine 1+ mg/dL (Negative); Specific Grav Ur 1.021 (1.001-1.035); Squamous Epithelial Cell Urine Few /hpf (Few); pH Urine 5.5 (5.0-9.0)
[2024-05-04 13:14] LABS: Alanine Aminotransferase 21 U/L (6-50); Albumin Level 3.4 g/dL (3.5-5.1); Alkaline Phosphatase 100 U/L (38-126); Anion Gap 5 mmol/L (4-12); Aspartate Amino Transferase 56 U/L (17-59); Bilirubin,Total 0.9 mg/dL (0.2-1.3); Blood Urea Nitrogen 19 mg/dL (9-20); Calcium 8.9 mg/dL (8.4-10.2); Carbon Dioxide 31 mmol/L (22-30); Chloride 104 mmol/L (98-107); Estimated Glomerular Filt Rate > 60; Glucose 118 mg/dL (65-110); Potassium 2.9 mmol/L (3.4-5.0); Sodium 140 mmol/L (137-145)
[2024-05-04 13:53] LABS: Hemoglobin A1C 5.7 % (<5.7)
== END 2024-05-04 09:44 | disposition home or self-care (01) ==
PROVIDERS: PCP Nurse Practitioner; Visit Provider Nurse Practitioner
DX: D50.9 Iron deficiency anemia, unspecified (principal); I10 Essential (primary) hypertension; F03.90 Unspecified dementia, unspecified severity, without behavioral disturbance, psychotic disturbance, mood disturbance, and anxiety; R73.01 Impaired fasting glucose; Z79.899 Other long term (current) drug therapy
CPT/HCPCS: 36415; 80053; 81001; 83036; 84443; 85027; 87086

== ENCOUNTER 2024-05-06 09:28 | Outpatient (CLI) | payer MEDICARE, OTHER, SELFPAY ==
[2024-05-06 09:42] LABS: Hematocrit 31.1 % (42.0-52.0); Mean Corpuscular HGB Conc 32.2 g/dl (32-36); Mean Corpuscular Hemoglobin 29.2 pg (26-34); Mean Corpuscular Volume 90.7 fl (80-100); Mean Platelet Volume 9.4 fl (7.4-10.4); Platelet Count Result 486 k/mm3 (150-375); Red Blood Count 3.43 M/mm3 (4.6-6.20); Red Cell Distribution Width 14.2 % (11.5-14.5); White Blood Count 21.7 K/mm3 (4.5-10.0)
[2024-05-06 10:08] LABS: Band Neutrophils Percent 14 % (0-6); Lymphocytes Absolute Manual 0.65 K/mm3 (1.1-4.5); Lymphocytes Percent Manual 3 % (18-44); Neutrophils Absolute Manual 20.83 K/mm3 (1.3-6.7); Neutrophils Percent Manual 82 % (46-73); Total Cells Counted 100
[2024-05-06 10:09] LABS: Monocytes Absolute Manual 0.21 K/mm3 (0.1-0.90); Monocytes Percent Manual 1 % (3-9); Platelet Estimate Increased (Adequate); Schistocytes None Seen
== END 2024-05-06 09:29 | disposition home or self-care (01) ==
LOC: ANHLAB 09:30
PROVIDERS: PCP Nurse Practitioner; Visit Provider Nurse Practitioner
DX: D72.829 Elevated white blood cell count, unspecified (principal)
CPT/HCPCS: 36415; 85025

== ENCOUNTER 2024-05-08 11:10 | Inpatient (IN) | payer MEDICARE, OTHER, SELFPAY ==
--- NOTE | ~2024-05-08 | CT_ITS ---
EXAMINATION: CT guide absc cath placement, CT guide absc cath placement DATE: 05/09/2024 12:23 INDICATION: Pelvic abscesses TECHNIQUE: The procedure including the risks and benefits was discussed with the patient. Risks discu ssed included bleeding and infection. The patient understood the risks and benefits and agreed to pro ceed. The patient was confirmed to be receiving appropriate antibiotic coverage. The skin overlying the anterior pelvis was prepped and draped in usual sterile fashion. Anesthetic was administered wit h 1% lidocaine subcutaneously. An 18-gauge trochar needle was advanced into both the midline pelvic a bscess and a second 18-gauge trochar needle was advanced into the left inguinal abscess utilizing CT guidance. The inner stylette was removed and J-wire was advanced through both needles into the respec tive fluid collections with position confirmed by CT. Then utilizing Seldinger technique both the tra cts were dilated to 8 Serbian and 8.5 Fr catheters were inserted over the wires into the abscess cavit ies. Position was confirmed by CT and the pigtail loops of both catheters were formed and locked. The catheters were stitched to the skin with sutures. Antibiotic ointment and a sterile dressing was leslye lied to both catheters. Pinkish-sykes purulent appearing fluid was aspirated from each abscess and sent to the lab for Gram stain and cultures. The catheters were then attached to suction drainage and wer e draining a minimal amount of additional purulent appearing fluid at the conclusion of the procedure . There were no immediate complications. The dose-length product was 251.46 mGy-cm. FINDINGS: CT images demonstrate one catheter within the left inguinal abscess cavity and the second c atheter within the superficial midline anterior pelvic abscess cavity. 15 mL fluid was aspirated from from the pelvic abscess cavity and 10 mL fluid was aspirated from the left inguinal abscess cavity f or testing. IMPRESSION: 1. Successful CT-guided abscess drainage catheter placement within an anterior midline pelvic intrape ritoneal abscess. 15 mL fluid was sent for Gram stain and aerobic and anaerobic cultures. 2. Successful CT-guided abscess drainage catheter placement within a left inguinal extraperitoneal ab scess cavity. 10 mL fluid was sent for Gram stain and aerobic and anaerobic cultures. 3. The catheters will be managed by Dr. Sanches. Reviewed, dictated and finalized at location A. [employer] IMPRESSION: 1. Successful CT-guided abscess drainage catheter placement within an anterior midline pelvic intraperitoneal abscess. 15 mL fluid was sent for Gram stain and aerobic and anaerobic cultures. 2. Successful CT-guided abscess drainage catheter placement within a left ingui nal extraperitoneal abscess cavity. 10 mL fluid was sent for Gram stain and aer obic and anaerobic cultures. 3. The catheters will be managed by Dr. Sanches.
--- NOTE | ~2024-05-08 | CT_ITS ---
EXAMINATION: CT abdomen pelvis w con DATE: 05/08/2024 14:41 INDICATION: Lower abdominal pain. Diarrhea. TECHNIQUE: Computed tomography (CT) of the abdomen and pelvis was performed with 100 mL Omnipaque 350 intravenous contrast. Automated exposure control and iterative reconstruction technique were employe d. The dose-length product was 431.27 mGy-cm. COMPARISON: CT abdomen and pelvis 05/30/2021 FINDINGS: The visualized portions of the lung bases demonstrate mild atelectasis. There are small ple ural effusions. Cardiomegaly is noted. No pericardial effusion. There are surgical changes of the gas troesophageal junction. The gallbladder is distended and demonstrates wall thickening. There is a 5.6 x 3.9 cm multiloculated cystic mass in the liver adjacent to the gallbladder. The largest loculation measuring 2.5 cm. The spleen, pancreas, adrenal glands are normal. There are cysts in the kidneys me asuring up to 5.9 cm on the left. The prostate is moderately enlarged. There are multiple diverticula in the sigmoid colon. There is wall thickening of the sigmoid colon. There is a 9.4 x 3.5 x 6.4 cm p erisigmoid abscess anteriorly. There is a 4.0 x 3.1 cm perisigmoid abscess involving the left rectus abdominis muscle. There are no dilated loops of bowel. The appendix is normal. There are no pathologi richie enlarged lymph nodes. There is no free intraperitoneal fluid. There is severe lumbar spondylosi s. There are bridging endplate osteophytes at multiple levels in the thoracic spine, consistent with diffuse idiopathic skeletal hyperostosis (DISH). Lumbar levoscoliosis is noted. IMPRESSION: 1. Sigmoid diverticulitis with two perisigmoid abscesses. 2. 5.6 x 3.9 cm multiloculated cystic mass in the liver, consistent with abscess. 3. Gallbladder distention, which may be secondary to distention or acute cholecystitis. Wall thickeni ng of the gallbladder adjacent to the liver mass is consistent with inflammation. Reviewed, dictated and finalized at location A. [employer] IMPRESSION: 1. Sigmoid diverticulitis with two perisigmoid abscesses. 2. 5.6 x 3.9 cm multiloculated cystic mass in the liver, consistent with absces s. 3. Gallbladder distention, which may be secondary to distention or acute cholec ystitis. Wall thickening of the gallbladder adjacent to the liver mass is consi stent with inflammation.
[2024-05-08 11:12] VITALS: BP 122/52; PULSE 92; RESP 16; TEMP 36.8; O2SAT 100
--- NOTE | 2024-05-08 12:35 | ED.ABDPAIN ---
HPI - Abdominal Pain General Chief Complaint: Abdominal Pain <JOSÉ Dejesus Last Filed: 05/08/24 12:38> Stated Complaint: lower abd pain, back pain <JOSÉ Dejesus Last Filed: 05/08/24 12:38> Time Seen by Provider: 05/08/24 12:30 <JOSÉ Dejesus Last Filed: 05/08/24 12:38> Focused HPI: Patient is an 79 y/o male who presents to the ED with c/o ABD pain. patient reports pain has been fairly constant over the past 6 weeks. Has seen his PCP and had blood work performed which has shown anemia, elevated WBC/plt, low K. He also had a US of his abdomen which showed an inguinal hernia. Patient denies ever feeling a hernia bulge. Has not been taking anything for pain. Reports intermittent diarrhea, decreased PO intake, denies rectal bleeding, N/V, fevers, urinary complaints. GENERAL: Elderly but well appearing, well-nourished, and in no acute distress. HEAD: Normocephalic, atraumatic. CHEST: Clear to auscultation. ?No respiratory distress. HEART: Regular rate and rhythm.? ABD: Mild TTP in RLQ, normoactive BS NEURO: ?Alert and oriented x3. Patient screened in triage and initial orders placed.? ?Additional care and disposition to be based upon?diagnostic testing and treatment. <Nereyda Mejias PA-C - Last Filed: 05/08/24 12:38> Source: patient and family <JOSÉ Dejesus Last Filed: 05/08/24 12:38> Mode of arrival: ambulatory <JOSÉ Dejesus Last Filed: 05/08/24 12:38> Limitations: no limitations <JOSÉ Dejesus Last Filed: 05/08/24 12:38> History of Present Illness HPI narrative: 79-year-old male presenting with abdominal pain. States that he has been having a persistent abdominal pain for the last 6 weeks or so. His family feels that it has been getting worse as he has been less active than normal and has not really been eating. He had an outpatient ultrasound that revealed a hernia. He does report some diarrhea but no nausea or vomiting, melena, hematochezia. No fevers but does complain of chills. <Anum Redman MD - Last Filed: 05/08/24 21:23> Related Data Home Medications: Home Medications Medication Instructions Recorded Confirmed [id number]-zrmidxewjmqib-gynytvhu 250 1 tablet PO BID 04/10/19 05/08/24 mg-250 mg-65 mg tablet (Excedrin Migraine) donepezil 5 mg tablet 5 mg PO HS 08/06/23 05/08/24 sertraline 100 mg tablet 50 mg PO DAILY 04/26/24 05/08/24 <Nereyda Mejias PA-C - Last Filed: 05/08/24 12:38> Allergies/Adverse Reactions: Allergies Allergy/AdvReac Type Severity Reaction Status Date / Time venom-wasp Allergy Severe Swelling Verified 05/08/24 19:35 Sulfa (Sulfonamide Allergy Mild Rash Verified 05/08/24 19:35 Antibiotics) <Nereyda Mejias PA-C - Last Filed: 05/08/24 12:38> Review of Systems Review of Systems: All systems reviewed & are unremarkable except as noted in HPI and below <Anum Redman MD - Last Filed: 05/08/24 21:23> [facility] Past Medical History Medical History: Medical History Arthritis Benign essential hypertension Benign prostatic hyperplasia Chronic GERD Iron deficiency anemia Melanoma Mild dementia <Nereyda Mejias PA-C - Last Filed: 05/08/24 12:38> Surgical History Surgical History: Surgical History History of bilateral cataract extraction History of melanoma excision History of right inguinal hernia repair History of transurethral resection of prostate Status post repair of paraesophageal diaphragmatic hernia <Nereyda Mejias PA-C - Last Filed: 05/08/24 12:38> Family History Family History: Family History Mother Hypertension Family history of coronary artery disease Father Family history of primary malignant neoplasm of liver <Nereyda Mejias PA-C - Last Filed: 05/08/24 12:38> Social History Social History: Social History (Updated 05/08/24 @ 15:56 by Amarilys Slater PA-C) Social History: Surrogate medical decision maker: Rula Watson, spouse. Code status: Full code. Smoking packs per day: 2 Smoking cigarettes per day: 40.0 Years smoked: 35 Smoking pack-years: 70.00 Smoking status: Former smoker Tobacco type: cigarettes Second hand tobacco smoke exposure: No Smoking end date: 06/14/78 Alcohol intake: current Drinks per week: 3 Substance use: never Substance use type: does not use Do You Feel Safe in your Home?: Yes Lack of Transportation: No Lack of Food: Never True Current Housing: I Have Housing Concerned About Future Housing: No Difficulty Paying Gas/Electric Bills: No Difficulty Paying for Meds: No Currently Unemployed: No Education: Bachelor's Degree Difficulty w/ Childcare or Family Care: No Living arrangements: with family Additional living arrangements comments: Lives with spouse in [place]. Occupation/Education: retired Additional occupation/education comments: Retired [employer] Spiritual care concerns: No <Nereyda Mejias PA-C - Last Filed: 05/08/24 12:38> Exam Narrative: GENERAL: Elderly male sitting up in bed in no acute distress, very pleasant cooperative HEAD: Normocephalic, atraumatic. EYES: PERRLA and EOMI. ENT: Grossly unremarkable NECK: Supple. CHEST: No respiratory distress. HEART: Regular rate and rhythm ABDOMEN: Soft, mild diffuse abdominal tenderness without guarding or rebound EXTREMITIES: Normal range of motion SKIN: Warm, dry, no rash. NEURO: Alert and oriented x3. PSYCH: Normal mood and affect. <Anum Redman MD - Last Filed: 05/08/24 21:23> Course Vital Signs Vital signs: Vital Signs Temperature 98.2 F 05/08/24 11:12 Pulse Rate 92 05/08/24 11:12 Respiratory Rate 16 05/08/24 11:12 Blood Pressure 122/52 L 05/08/24 11:12 Pulse Oximetry 100 05/08/24 11:12 Temperature 98.2 F 05/08/24 17:44 Pulse Rate 76 05/08/24 17:44 Respiratory Rate 16 05/08/24 17:44 Blood Pressure 117/60 05/08/24 17:44 Pulse Oximetry 98 05/08/24 17:44 <Nereyda Mejias PA-C - Last Filed: 05/08/24 12:38> Vital Signs Temperature 98.2 F 05/08/24 11:12 Pulse Rate 92 05/08/24 11:12 Respiratory Rate 16 05/08/24 11:12 Blood Pressure 122/52 L 05/08/24 11:12 Pulse Oximetry 100 05/08/24 11:12 Temperature 98.2 F 05/08/24 17:44 Pulse Rate 76 05/08/24 17:44 Respiratory Rate 16 05/08/24 17:44 Blood Pressure 117/60 05/08/24 17:44 Pulse Oximetry 98 05/08/24 17:44 <Anum Redman MD - Last Filed: 05/08/24 21:23> MDM - Abdominal Pain MDM Narrative Medical decision making narrative: MSE by SHARAD in triage. <Nereyda Mejias PA-C - Last Filed: 05/08/24 12:38> MSE by SHARAD in triage. 79-year-old male presenting with 6 weeks of abdominal pain. Vitals are stable. Exam remarkable for the above. Blood work with a white count of nearly 20. CT abdomen pelvis shows sigmoid diverticulitis with 2 Rima sigmoid abscesses as well as a liver abscess. Blood cultures have been ordered. IV Zosyn and fluids have been ordered. Patient declines antiemetics or pain med at this time. I spoke with surgery who agrees with consult. Agrees with Zosyn. Spoke with the hospitalist who has accepted the patient for admission. <Anum Redman MD - Last Filed: 05/08/24 21:23> Differential Diagnosis Differential diagnosis: Likely abdominal pain, acute appendicitis, constipation, diverticulitis, pancreatitis and small bowel obstruction <Anum Redman MD - Last Filed: 05/08/24 21:23> Medical Records Attestation: I reviewed the patient's medical records. <Anum Redman MD - Last Filed: 05/08/24 21:23> Lab Data Attestation: I reviewed the patient's lab results. <Anum Redman MD - Last Filed: 05/08/24 21:23> Result diagrams: 05/08/24 12:40 05/08/24 12:40 <Nereyda Mejias PA-C - Last Filed: 05/08/24 12:38> Labs: Lab Results 05/08/24 05/08/24 Range/Units 12:40 14:02 WBC 19.8 H (4.5-10.0) K/mm3 RBC 3.71 L (4.6-6.20) M/mm3 Hgb 10.5 L (14.0-18.0) g/dL Hct 33.9 L (42.0-52.0) % MCV 91.4 (80-100) fl MCH 28.3 (26-34) pg MCHC 31.0 L (32-36) g/dl RDW 14.6 H (11.5-14.5) % Plt Count 580 H (150-375) k/mm3 MPV 9.8 (7.4-10.4) fl Immature Gran % (Auto) 1.0 H (0-0.5) % Neut % (Auto) 90.1 H (45.5-73.1) % Lymph % (Auto) 2.3 L (18.3-44.2) % Warrick % (Auto) 6.1 (2.6-8.5) % Eos % (Auto) 0.3 (0-4.4) % Baso % (Auto) 0.2 (0.2-1.2) % Lymph # (Auto) 0.45 L (0.9-3.2) K/mm3 Warrick # (Auto) 1.2 H (0.1-0.6) K/mm3 Eos # (Auto) 0.1 (0-0.3) K/mm3 Baso # (Auto) 0.0 (0.0-0.1) K/mm3 Abs Immat Gran (auto) 0.20 H (0.00-0.031) K/mm3 Absolute Neuts (auto) 17.8 H (1.3-6.7) K/mm3 Absolute Nucleated RBC 0.000 (0.0-0.012) K/mm3 Nucleated RBC % 0.0 (0.0-0.2) % Sodium 140 (137-145) mmol/L Potassium 3.5 (3.4-5.0) mmol/L Chloride 103 (98-107) mmol/L Carbon Dioxide 27 (22-30) mmol/L Anion Gap 10 (4-12) mmol/L BUN 24 H (9-20) mg/dL Creatinine 1.10 (0.7-1.3) mg/dL Estim Creat Clear Calc 47 ml/min Estimated GFR > 60 (59 - ) Glucose 115 H (65-110) mg/dL Lactic Acid 1.2 (0.7-2.0) mmol/L Calcium 8.9 (8.4-10.2) mg/dL Magnesium 1.8 (1.6-2.3) mg/dL Total Bilirubin 1.0 (0.2-1.3) mg/dL AST 20 (17-59) U/L ALT 23 (6-50) U/L Alkaline Phosphatase 103 (38-126) U/L Total Protein 7.0 (6.3-8.2) g/dL Albumin 3.2 L (3.5-5.1) g/dL Lipase 30 (23-300) U/L Urine Color Dark yellow (Yellow) Urine Appearance Cloudy H (Clear) Urine pH 5.5 (5.0-9.0) Ur Specific Protection 1.022 (1.001-1.035) Urine Protein 1+ H (Negative) mg/dL Urine Glucose (UA) Negative (Negative) mg/dL Urine Ketones Trace H (Negative) mg/dL Ur Blood (Man) Negative (Negative) Urine Nitrate Negative (Negative) Urine Bilirubin 2+ H (Negative) Urine Urobilinogen 1.0 (<2.0) mg/dL Leukocyte Esterase Rfl Trace H (Negative) SHAHEED/UL Urine RBC 3-5 H (0-2) /hpf Urine WBC 0-5 (0-3) /hpf Ur Squamous Epith Cells Moderate (Few) /hpf Urine Bacteria None seen /hpf Urine Casts >20 Hyaline Casts Present (None) /lpf <Nereyda Mejias PA-C - Last Filed: 05/08/24 12:38> Lab Results 05/08/24 05/08/24 Range/Units 12:40 14:02 WBC 19.8 H (4.5-10.0) K/mm3 RBC 3.71 L (4.6-6.20) M/mm3 Hgb 10.5 L (14.0-18.0) g/dL Hct 33.9 L (42.0-52.0) % MCV 91.4 (80-100) fl MCH 28.3 (26-34) pg MCHC 31.0 L (32-36) g/dl RDW 14.6 H (11.5-14.5) % Plt Count 580 H (150-375) k/mm3 MPV 9.8 (7.4-10.4) fl Immature Gran % (Auto) 1.0 H (0-0.5) % Neut % (Auto) 90.1 H (45.5-73.1) % Lymph % (Auto) 2.3 L (18.3-44.2) % Warrick % (Auto) 6.1 (2.6-8.5) % Eos % (Auto) 0.3 (0-4.4) % Baso % (Auto) 0.2 (0.2-1.2) % Lymph # (Auto) 0.45 L (0.9-3.2) K/mm3 Warrick # (Auto) 1.2 H (0.1-0.6) K/mm3 Eos # (Auto) 0.1 (0-0.3) K/mm3 Baso # (Auto) 0.0 (0.0-0.1) K/mm3 Abs Immat Gran (auto) 0.20 H (0.00-0.031) K/mm3 Absolute Neuts (auto) 17.8 H (1.3-6.7) K/mm3 Absolute Nucleated RBC 0.000 (0.0-0.012) K/mm3 Nucleated RBC % 0.0 (0.0-0.2) % Sodium 140 (137-145) mmol/L Potassium 3.5 (3.4-5.0) mmol/L Chloride 103 (98-107) mmol/L Carbon Dioxide 27 (22-30) mmol/L Anion Gap 10 (4-12) mmol/L BUN 24 H (9-20) mg/dL Creatinine 1.10 (0.7-1.3) mg/dL Estim Creat Clear Calc 47 ml/min Estimated GFR > 60 (59 - ) Glucose 115 H (65-110) mg/dL Lactic Acid 1.2 (0.7-2.0) mmol/L Calcium 8.9 (8.4-10.2) mg/dL Magnesium 1.8 (1.6-2.3) mg/dL Total Bilirubin 1.0 (0.2-1.3) mg/dL AST 20 (17-59) U/L ALT 23 (6-50) U/L Alkaline Phosphatase 103 (38-126) U/L Total Protein 7.0 (6.3-8.2) g/dL Albumin 3.2 L (3.5-5.1) g/dL Lipase 30 (23-300) U/L Urine Color Dark yellow (Yellow) Urine Appearance Cloudy H (Clear) Urine pH 5.5 (5.0-9.0) Ur Specific Protection 1.022 (1.001-1.035) Urine Protein 1+ H (Negative) mg/dL Urine Glucose (UA) Negative (Negative) mg/dL Urine Ketones Trace H (Negative) mg/dL Ur Blood (Man) Negative (Negative) Urine Nitrate Negative (Negative) Urine Bilirubin 2+ H (Negative) Urine Urobilinogen 1.0 (<2.0) mg/dL Leukocyte Esterase Rfl Trace H (Negative) SHAHEED/UL Urine RBC 3-5 H (0-2) /hpf Urine WBC 0-5 (0-3) /hpf Ur Squamous Epith Cells Moderate (Few) /hpf Urine Bacteria None seen /hpf Urine Casts >20 Hyaline Casts Present (None) /lpf <Anum Redman MD - Last Filed: 05/08/24 21:23> Imaging Data Radiologist's impression: ITS Impressions Abdomen/Pelvis CT 05/08/24 14:44 IMPRESSION: 1. Sigmoid diverticulitis with two perisigmoid abscesses. 2. 5.6 x 3.9 cm multiloculated cystic mass in the liver, consistent with abscess. 3. Gallbladder distention, which may be secondary to distention or acute cholecystitis. Wall thickening of the gallbladder adjacent to the liver mass is consistent with inflammation. <Nereyda Mejias PA-C - Last Filed: 05/08/24 12:38> ITS Impressions Abdomen/Pelvis CT 05/08/24 14:44 IMPRESSION: 1. Sigmoid diverticulitis with two perisigmoid abscesses. 2. 5.6 x 3.9 cm multiloculated cystic mass in the liver, consistent with abscess. 3. Gallbladder distention, which may be secondary to distention or acute cholecystitis. Wall thickening of the gallbladder adjacent to the liver mass is consistent with inflammation. <nAum Redman MD - Last Filed: 05/08/24 21:23> Critical Care Time Critical Care Time Critical Care Time: No <Anum Redman MD - Last Filed: 05/08/24 21:23> Discharge Plan Discharge Clinical Impression: Abscess of sigmoid colon due to diverticulitis, Liver abscess <Nereyda Mejias PA-C - Last Filed: 05/08/24 12:38> Patient Disposition: Still a Patient <JOSÉ Dejesus Last Filed: 05/08/24 12:38> Condition: Stable <JOSÉ Dejesus Last Filed: 05/08/24 12:38>
[2024-05-08 13:04] LABS: Hematocrit 33.9 % (42.0-52.0); Hemoglobin 10.5 g/dL (14.0-18.0); Mean Corpuscular Hemoglobin 28.3 pg (26-34); Mean Corpuscular Volume 91.4 fl (80-100); Mean Platelet Volume 9.8 fl (7.4-10.4); Platelet Count Result 580 k/mm3 (150-375); Red Blood Count 3.71 M/mm3 (4.6-6.20); Red Cell Distribution Width 14.6 % (11.5-14.5); White Blood Count 19.8 K/mm3 (4.5-10.0)
[2024-05-08 13:05] LABS: Basophils Percent Auto 0.2 % (0.2-1.2); Eosinophils Absolute Auto 0.1 K/mm3 (0-0.3); Eosinophils Percent Auto 0.3 % (0-4.4); Lymphocytes Absolute Auto 0.45 K/mm3 (0.9-3.2); Lymphocytes Percent Auto 2.3 % (18.3-44.2); Monocytes Absolute Auto 1.2 K/mm3 (0.1-0.6); Monocytes Percent Auto 6.1 % (2.6-8.5); Neutrophils Absolute Auto 17.8 K/mm3 (1.3-6.7); Neutrophils Percent Auto 90.1 % (45.5-73.1)
[2024-05-08 13:22] LABS: Lactic Acid Reflex 1.2 mmol/L (0.7-2.0)
[2024-05-08 13:25] LABS: Magnesium 1.8 mg/dL (1.6-2.3)
[2024-05-08 14:02] VITALS: BP 102/61; PULSE 92; RESP 16; O2SAT 96
[2024-05-08 14:20] LABS: Alanine Aminotransferase 23 U/L (6-50); Albumin Level 3.2 g/dL (3.5-5.1); Alkaline Phosphatase 103 U/L (38-126); Anion Gap 10 mmol/L (4-12); Aspartate Amino Transferase 20 U/L (17-59); Blood Urea Nitrogen 24 mg/dL (9-20); Calcium 8.9 mg/dL (8.4-10.2); Carbon Dioxide 27 mmol/L (22-30); Chloride 103 mmol/L (98-107); Estimated CRCL calculation 47 ml/min; Estimated Glomerular Filt Rate > 60; Glucose 115 mg/dL (65-110); Lipase 30 U/L (23-300); Potassium 3.5 mmol/L (3.4-5.0); Sodium 140 mmol/L (137-145)
[2024-05-08 14:31] LABS: Add Urine Microscopic? YES; Appearance Urine Cloudy (Clear); Bacteria Urine None Seen /hpf; Bilirubin Urine 2+ (Negative); Blood Urine Negative (Negative); Color Urine Dark Yellow (Yellow); Glucose Urine UA Negative (Negative); Hyaline Casts Urine Present /lpf; Ketones Urine Trace mg/dL (Negative); Leukocyte Esterase Ur Trace LEU/UL (Negative); Nitrate Urine Negative (Negative); Non Pathogenic Casts >20; Protein Urine 1+ mg/dL (Negative); Specific Grav Ur 1.022 (1.001-1.035); Squamous Epithelial Cell Urine Moderate /hpf (Few); WBC Urine 0-5 /hpf (0-3); pH Urine 5.5 (5.0-9.0)
[2024-05-08] MEDS: SODIUM CHLORIDE 0.9% IV 1,000 ML 999 ML IV CONT (15:31)
[2024-05-08 15:34] VITALS: BP 109/56; PULSE 88; RESP 15; TEMP 36.8; O2SAT 96
--- NOTE | 2024-05-08 15:40 | PM.IMHP ---
H&P: HPI History of Present Illness Date/Time: 05/08/24 15:40 Chief Complaint: Abdominal pain. Narrative: This is a very pleasant 79-year-old male with hypertension, hyperlipidemia, type 2 diabetes mellitus, gastroesophageal reflux disease, and mild dementia who presented to the emergency department for evaluation of abdominal pain. The patient provides the following history. He gives a 6 week history of pain in the left lower quadrant and groin. Initially he thought it was perhaps a hernia as he has had similar symptoms prior to having a right inguinal hernia repaired. He saw Dr. Sanon in office on 04/26/2024 at which time his exam was benign. An ultrasound of the soft tissue of the left groin showed a small amount of ascites with extension of a small amount of fat and fluid into the left inguinal canal with no evident herniated bowel. Unfortunately he continues to have the pain which is essentially constant but tolerable. He has not taken anything for the pain. Associated symptoms include intermittent diarrhea, poor appetite with decreased oral intake, and overall malaise. In the ED: He was afebrile on arrival with stable vital signs. Labs were significant for WBC count of 19.8, hemoglobin 10.5, hematocrit 33.9%, platelet 580, BUN 24, creatinine 1.10, lactic acid 1.2. Trace ketones noted in the urine. CT of the abdomen and pelvis showed sigmoid diverticulitis with 2 perisigmoid abscesses and a 5.6 x 3.9 cm multiloculated cystic mass in the liver consistent with abscess and gallbladder distention with wall thickening adjacent to the liver mass consistent with inflammation. He was started on Zosyn is being admitted in this setting for further treatment and surgery consultation. Review of Systems Review of Systems: 12 systems were reviewed and are negative except for as per HPI. FORMERLY [facility] Past Medical History Medical History Arthritis Benign essential hypertension Benign prostatic hyperplasia Chronic GERD Iron deficiency anemia Melanoma Mild dementia Surgical History Surgical History History of bilateral cataract extraction History of melanoma excision History of right inguinal hernia repair History of transurethral resection of prostate Status post repair of paraesophageal diaphragmatic hernia Family History Family History Mother Hypertension Family history of coronary artery disease Father Family history of primary malignant neoplasm of liver Social History Social History Social History: Surrogate medical decision maker: Rula Watson, spouse. Code status: Full code. Smoking packs per day: 2 Smoking cigarettes per day: 40.0 Years smoked: 35 Smoking pack-years: 70.00 Smoking status: Former smoker Tobacco type: cigarettes Second hand tobacco smoke exposure: No Smoking end date: 06/14/78 Alcohol intake: current Drinks per week: 3 Substance use: never Substance use type: does not use Do You Feel Safe in your Home?: Yes Lack of Transportation: No Lack of Food: Never True Current Housing: I Have Housing Concerned About Future Housing: No Difficulty Paying Gas/Electric Bills: No Difficulty Paying for Meds: No Currently Unemployed: No Education: Bachelor's Degree Difficulty w/ Childcare or Family Care: No Living arrangements: with family Additional living arrangements comments: Lives with spouse in [place]. Occupation/Education: retired Additional occupation/education comments: Retired [employer]. Spiritual care concerns: No Meds Home Medications and Allergies Home Medications Medication Instructions Recorded Confirmed Type [id number]-utpnbszrviujm-zdxpvzaw 250 1 tablet PO BID 04/10/19 05/08/24 History mg-250 mg-65 mg tablet (Excedrin Migraine) donepezil 5 mg tablet 5 mg PO HS 08/06/23 05/08/24 History amlodipine 5 mg tablet 5 mg PO DAILY #90 tabs 01/18/24 05/08/24 Rx omeprazole 40 mg capsule,delayed 40 mg PO DAILY #90 caps 04/06/24 05/08/24 Rx release memantine 10 mg tablet 10 mg PO BID #180 tabs 04/17/24 05/08/24 Rx sertraline 100 mg tablet 50 mg PO DAILY 04/26/24 05/08/24 History Allergies Allergy/AdvReac Type Severity Reaction Status Date / Time venom-wasp Allergy Severe Swelling Verified 05/08/24 19:35 Sulfa (Sulfonamide Allergy Mild Rash Verified 05/08/24 19:35 Antibiotics) Vital Signs Vital Signs - 24 hr 05/08/24 11:12 05/08/24 14:02 05/08/24 15:34 Temperature 98.2 F 98.3 F Pulse Rate 92 92 88 Respiratory Rate 16 16 15 Blood Pressure 122/52 L 102/61 109/56 L Pulse Oximetry 100 96 96 Exam Narrative: General: Mildly ill but nontoxic appearing gentleman the semi-Tang position in bed in no distress. Weight: 84 kg. BMI: 27.3. HEENT: PERRL, EOMI. Sclera anicteric. Dry mucous membranes with chapped lips. Neck: Supple. Respiratory: Lungs are clear to auscultation bilaterally. Cardiovascular: Regular rate and rhythm with S1-S2. Gastrointestinal: Abdomen is soft and nondistended with positive bowel sounds. He is tender to palpation more so in the left mid to lower quadrant. No guarding or rebound tenderness. Skin: Warm and dry. Extremities: No cyanosis, clubbing, or edema. Radial and pedal pulses intact. Neurological: Alert. Cranial nerves 2-12 are grossly intact. No gross focal deficits to casual conversation. Psychiatric: Pleasant and cooperative with appropriate mood and affect. H&P: Results Labs Labs: Short CBC 05/08/24 Range/Units 12:40 WBC 19.8 H (4.5-10.0) K/mm3 Hgb 10.5 L (14.0-18.0) g/dL Hct 33.9 L (42.0-52.0) % Plt Count 580 H (150-375) k/mm3 BMP 05/08/24 12:40 Sodium 140 Potassium 3.5 Chloride 103 Carbon Dioxide 27 BUN 24 H Creatinine 1.10 Glucose 115 H Calcium 8.9 Liver Function 05/08/24 Range/Units 12:40 Total Bilirubin 1.0 (0.2-1.3) mg/dL AST 20 (17-59) U/L ALT 23 (6-50) U/L Alkaline Phosphatase 103 (38-126) U/L Albumin 3.2 L (3.5-5.1) g/dL Urine 05/08/24 Range/Units 14:02 Urine Color Dark yellow (Yellow) Urine Appearance Cloudy H (Clear) Urine pH 5.5 (5.0-9.0) Ur Specific [place] 1.022 (1.001-1.035) Urine Protein 1+ H (Negative) mg/dL Urine Glucose (UA) Negative (Negative) mg/dL Imaging Abdomen/Pelvis CT 05/08/24 14:44 IMPRESSION: 1. Sigmoid diverticulitis with two perisigmoid abscesses. 2. 5.6 x 3.9 cm multiloculated cystic mass in the liver, consistent with abscess. 3. Gallbladder distention, which may be secondary to distention or acute cholecystitis. Wall thickening of the gallbladder adjacent to the liver mass is consistent with inflammation. Assessment and Plan Assessment and plan (1) Abscess of sigmoid colon due to diverticulitis: Code(s): K57.20 - Diverticulitis of large intestine with perforation and abscess without bleeding Status: Acute (2) Liver abscess: Code(s): K75.0 - Abscess of liver Status: Acute (3) Thickening of wall of gallbladder: Code(s): K82.8 - Other specified diseases of gallbladder Status: Acute (4) Mild dementia: Code(s): F03.A0 - Unspecified dementia, mild, without behavioral disturbance, psychotic disturbance, mood disturbance, and anxiety Status: Acute (5) Benign essential hypertension: Code(s): I10 - Essential (primary) hypertension Status: Acute (6) Chronic GERD: Code(s): K21.9 - Gastro-esophageal reflux disease without esophagitis Status: Acute Plan The patient presented to the emergency department for evaluation of ongoing left lower abdominal pain for upwards of 6 weeks if not longer as detailed in HPI. Labs, imaging, EKG, and all reports were personally reviewed. Pain seems to be stemming from diverticulitis with perisigmoid abscesses noted on CT scan. There is an also fairly large abscess in the liver which is likely hematogenous spread. Continue piperacillin/tazobactam. NPO after midnight for probable percutaneous drainage tomorrow. Dr. Sanches has been consulted and his input is appreciated. Analgesics and antiemetics are available as needed. Vital signs were reviewed and they are stable. His home medications will be reviewed and resumed as appropriate. Findings and treatment plan were discussed with the patient. Questions were solicited and answered to satisfaction. The patient's medical management will be taken over by the hospitalist team in a.m. Quality VTE Prophylaxis VTE prophylaxis: mechanical ordered If No VTE Prophylaxis Answer both mechanical and pharmacologic: Reason no pharmacologic proph: medical contraindication (procedure tomorrow) The patient has been admitted under observation status. Hospitalist [facility] Advance Care Plan I have confirmed that the patient's Advanced Care Plan is present, code status is documented, or surrogate decision maker is listed in patient medical record.: Yes Medication Reconciliation I have utilized all available resources to obtain, update and review the patients current medications (includes all prescriptions, OTC, herbals, cannabis, and nutritional supplements).: Yes
[2024-05-08] MEDS: PIPERACILLIN/TAZ 4.5G/NS 100ML 4.5 GM/100 ML BAG IVPB (16:24)
--- NOTE | 2024-05-08 16:30 | PM.CNGS ---
Assessment and Plan Assessment and plan (1) Abscess of sigmoid colon due to diverticulitis: Code(s): K57.20 - Diverticulitis of large intestine with perforation and abscess without bleeding Status: Acute Assessment and Plan: CT showing evidence of sigmoid diverticulitis with 2 cong sigmoid abscesses, as well as a 5.6 cm multiloculated cystic mass in the liver that appears consistent with an abscess. This is his first episode of diverticulitis and he has had ongoing symptoms for about 6 weeks. History is limited due to his dementia, and this could be what caused his late presentation. We would recommend conservative treatment with broad-spectrum IV antibiotics, bowel rest, and IV fluids. I will review the CT scan with the radiologist to see if any of his intra-abdominal abscesses would be amenable to percutaneous drainage. If so, we will try to set up for the procedure tomorrow. We will continue to follow along closely with serial abdominal exams and labs. (2) Liver abscess: Code(s): K75.0 - Abscess of liver Status: Acute Assessment and Plan: CT showed a 5.6 cm cystic mass in the liver consistent with an abscess. Etiology is not clear, but it is possible that this is a pyogenic liver abscess secondary to his diverticulitis. Would recommend to continue broad-spectrum IV antibiotics and will plan to review the CT scan with the radiologist as mentioned above. (3) Abnormal findings on diagnostic imaging of gallbladder: Code(s): R93.2 - Abnormal findings on diagnostic imaging of liver and biliary tract Status: Acute Assessment and Plan: CT also shows some gallbladder distention and mild wall thickening near the liver abscess. This could be related to fasting and less likely cholecystitis. The patient has not had any right upper quadrant abdominal pain and is completely nontender in the right upper quadrant on exam. LFTs are all normal. He does not clinically appear to have any signs of acute cholecystitis. We will continue to monitor and could consider further imaging of the gallbladder if he develops right upper quadrant pain or tenderness. (4) Mild dementia: Code(s): F03.A0 - Unspecified dementia, mild, without behavioral disturbance, psychotic disturbance, mood disturbance, and anxiety Status: Acute Plan I have discussed the patient's case and plan of care with Dr. Sanches. History of Present Illness Consult details Consult date: 05/08/24 Reason for consult: other (Diverticulitis with abscess) Requesting physician: Anum Redman MD Narrative: This is an 79-year-old man with with PMH of Alzheimer's, hypertension, and GERD, who we have been asked to see in surgical consultation for diverticulitis with abscess. His and daughter at the bedside, and provide majority of the history due to his dementia. They have noticed him complaining of suprapubic and left lower quadrant abdominal pain for the past 6 weeks. He was actually seen in the office over a week ago by Dr. Weiss for the left lower quadrant pain. He is status post a robotic assisted recurrent right inguinal hernia repair with mesh in July of [address] Weiss. After being seen as an outpatient, he had a left groin soft tissue ultrasound, which showed a small amount of ascites with extension of a small amount of fat and fluid into the left inguinal canal. The patient has additionally had poor appetite with decreased oral intake. His noticed over the past week, he has barely eat any meals. He also not been drinking well. No fevers or vomiting. Over the last 3 days, he has become less active and was lying around all day, which is atypical for the patient. He was then brought into the ED today. Labs showed a white blood cell count 27171, hemoglobin 10.5, hematocrit 33, platelets 580,000. CT scan of the abdomen and pelvis showed sigmoid diverticulitis with 2 cong sigmoid abscesses and a 5.6 x 3.9 cm multiloculated cystic mass in the liver, consistent with abscess. Also noted is gallbladder distension, which may be secondary to distention or acute cholecystitis. Wall thickening of the gallbladder adjacent to the liver masses consistent with inflammation. The patient is now being admitted in this setting. He is seen in the ER. He denies any abdominal pain at this time, but his family reports this is a consistent issue. He will complain of pain, but when asked he will deny this. No previous history of diverticulitis known to the family. His last colonoscopy was in 2007 and reportedly negative. He has had at least 2, possibly 3 previous right inguinal hernia repairs. They also believe he had a left inguinal hernia repair years ago, but cannot recall the details. His only other abdominal surgery was a laparoscopic hiatal hernia repair. Review of Systems Review of Systems: ROS unobtainable: Yes unobtainable due to mental status PMFSH Past Medical History Medical History Arthritis Benign essential hypertension Benign prostatic hyperplasia Chronic GERD Iron deficiency anemia Melanoma Mild dementia Surgical History Surgical History History of bilateral cataract extraction History of melanoma excision History of right inguinal hernia repair History of transurethral resection of prostate Status post repair of paraesophageal diaphragmatic hernia Family History Family History Mother Hypertension Family history of coronary artery disease Father Family history of primary malignant neoplasm of liver Social History Social History (Updated 05/08/24 @ 15:56 by Amarilys Slater PA-C) Social History: Surrogate medical decision maker: Rula Watson, spouse. Code status: Full code. Smoking packs per day: 2 Smoking cigarettes per day: 40.0 Years smoked: 35 Smoking pack-years: 70.00 Smoking status: Former smoker Tobacco type: cigarettes Second hand tobacco smoke exposure: No Smoking end date: 06/14/78 Alcohol intake: current Drinks per week: 2 Substance use: never Substance use type: does not use Do You Feel Safe in your Home?: Yes Lack of Transportation: No Lack of Food: Never True Current Housing: I Have Housing Concerned About Future Housing: No Difficulty Paying Gas/Electric Bills: No Difficulty Paying for Meds: No Currently Unemployed: No Education: Bachelor's Degree Difficulty w/ Childcare or Family Care: No Living arrangements: with family Additional living arrangements comments: Lives with spouse in [place]. 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 Spiritual care concerns: No Meds Home Medications and Allergies Home Medications Medication Instructions Recorded Confirmed Type [id number]-hnhkiypzejvma-zgzmxnhm 250 1 tablet PO DAILY 04/10/19 04/26/24 History mg-250 mg-65 mg tablet (Excedrin Migraine) donepezil 5 mg tablet 5 mg HS 08/06/23 04/26/24 History amlodipine 5 mg tablet 5 mg PO DAILY #90 tabs 01/18/24 04/26/24 Rx omeprazole 40 mg capsule,delayed 40 mg PO DAILY #90 caps 04/06/24 04/26/24 Rx release memantine 10 mg tablet 10 mg PO BID #180 tabs 04/17/24 04/26/24 Rx sertraline 100 mg tablet 50 mg PO DAILY 04/26/24 04/26/24 History Allergies Allergy/AdvReac Type Severity Reaction Status Date / Time venom-wasp Allergy Severe Swelling Verified 05/08/24 15:30 Sulfa (Sulfonamide Allergy Mild Rash Verified 05/08/24 15:30 Antibiotics) Vital Signs Vital Signs - 24 hr 05/08/24 11:12 05/08/24 14:02 05/08/24 15:34 Temperature 98.2 F 98.3 F Pulse Rate 92 92 88 Respiratory Rate 16 16 15 Blood Pressure 122/52 L 102/61 109/56 L Pulse Oximetry 100 96 96 Exam Const: General: comfortable and no acute distress Nutritional Appearance: average body habitus Orientation/consciousness: oriented to person HENMT: Head: normocephalic and atraumatic Ears: hearing grossly normal bilaterally Mouth: Yes moist mucous membranes Eyes: General: appearance normal, both eyes and all related structures Pupils: Equal, round and reactive pupils present Neck: Neck: normal visual inspection and full ROM Resp: Effort & Inspection: no respiratory distress Auscultation: clear to auscultation bilaterally Cardio: Rate: regular rate Rhythm: regular rhythm GI: Inspection: non-distended GI Palp: Yes Soft to palpation, Yes Tenderness to palpation present (GI) (mild tenderness in the LLQ and into the left groin) and No Guarding due to palpation present (GI) Auscultation: normal bowel sounds Other: Abdomen is soft and nondistended. There is a palpable firm mass in the LLQ just above the groin that correlates with the abscess coming up to the rectus muscle on CT. He is mildly tender in this area. No recurrent inguinal hernias palpable. There is also some fullness in the RUQ that is consistent with either a palpable gallbladder or the cystic liver mass on CT, and he has no tenderness in the RUQ with even deep palpation. Skin: General skin exam: normal color Neuro: General: moves all extremities and no focal motor deficits Speech: normal speech Motor exam (neuro): 5/5 motor strength present throughout Extrem: General: normal to inspection and no edema Psych: Mental Status: mental status grossly normal Attitude: cooperative Insight: Fair insight present (Psych) Results Labs 05/08/24 12:40 05/08/24 12:40 Labs: Abnormal lab results 05/08/24 05/08/24 Range/Units 12:40 14:02 WBC 19.8 H (4.5-10.0) K/mm3 RBC 3.71 L (4.6-6.20) M/mm3 Hgb 10.5 L (14.0-18.0) g/dL Hct 33.9 L (42.0-52.0) % MCHC 31.0 L (32-36) g/dl RDW 14.6 H (11.5-14.5) % Plt Count 580 H (150-375) k/mm3 Immature Gran % (Auto) 1.0 H (0-0.5) % Neut % (Auto) 90.1 H (45.5-73.1) % Lymph % (Auto) 2.3 L (18.3-44.2) % Lymph # (Auto) 0.45 L (0.9-3.2) K/mm3 [place] # (Auto) 1.2 H (0.1-0.6) K/mm3 Abs Immat Gran (auto) 0.20 H (0.00-0.031) K/mm3 Absolute Neuts (auto) 17.8 H (1.3-6.7) K/mm3 BUN 24 H (9-20) mg/dL Glucose 115 H (65-110) mg/dL Albumin 3.2 L (3.5-5.1) g/dL Urine Appearance Cloudy H (Clear) Urine Protein 1+ H (Negative) mg/dL Urine Ketones Trace H (Negative) mg/dL Urine Bilirubin 2+ H (Negative) Leukocyte Esterase Rfl Trace H (Negative) SHAHEED/UL Urine RBC 3-5 H (0-2) /hpf Diabetes panel 05/08/24 Range/Units 12:40 Sodium 140 (137-145) mmol/L Potassium 3.5 (3.4-5.0) mmol/L Chloride 103 (98-107) mmol/L Carbon Dioxide 27 (22-30) mmol/L BUN 24 H (9-20) mg/dL Creatinine 1.10 (0.7-1.3) mg/dL Glucose 115 H (65-110) mg/dL Calcium 8.9 (8.4-10.2) mg/dL AST 20 (17-59) U/L ALT 23 (6-50) U/L Alkaline Phosphatase 103 (38-126) U/L Total Protein 7.0 (6.3-8.2) g/dL Albumin 3.2 L (3.5-5.1) g/dL Calcium panel 05/08/24 Range/Units 12:40 Calcium 8.9 (8.4-10.2) mg/dL Albumin 3.2 L (3.5-5.1) g/dL Pituitary panel 05/08/24 Range/Units 12:40 Sodium 140 (137-145) mmol/L Potassium 3.5 (3.4-5.0) mmol/L Chloride 103 (98-107) mmol/L Carbon Dioxide 27 (22-30) mmol/L BUN 24 H (9-20) mg/dL Creatinine 1.10 (0.7-1.3) mg/dL Glucose 115 H (65-110) mg/dL Calcium 8.9 (8.4-10.2) mg/dL Adrenal panel 05/08/24 Range/Units 12:40 Sodium 140 (137-145) mmol/L Potassium 3.5 (3.4-5.0) mmol/L Chloride 103 (98-107) mmol/L Carbon Dioxide 27 (22-30) mmol/L BUN 24 H (9-20) mg/dL Creatinine 1.10 (0.7-1.3) mg/dL Glucose 115 H (65-110) mg/dL Calcium 8.9 (8.4-10.2) mg/dL Total Bilirubin 1.0 (0.2-1.3) mg/dL AST 20 (17-59) U/L ALT 23 (6-50) U/L Alkaline Phosphatase 103 (38-126) U/L Total Protein 7.0 (6.3-8.2) g/dL Albumin 3.2 L (3.5-5.1) g/dL All other labs normal. Imaging Additional studies: ITS Impressions Abdomen/Pelvis CT 05/08/24 14:44 IMPRESSION: 1. Sigmoid diverticulitis with two perisigmoid abscesses. 2. 5.6 x 3.9 cm multiloculated cystic mass in the liver, consistent with abscess. 3. Gallbladder distention, which may be secondary to distention or acute cholecystitis. Wall thickening of the gallbladder adjacent to the liver mass is consistent with inflammation.
[2024-05-08] MEDS: SODIUM CHLORIDE 0.9% IV 1,000 ML 85 ML IV CONT (17:37)
[2024-05-08 17:44] VITALS: BP 117/60; PULSE 76; RESP 16; TEMP 36.8; O2SAT 98
--- NOTE | 2024-05-08 21:21 | ADMGEN ---
This patient, Rodney Watson, was admitted to 2 Medical Room 247-. Patient/family oriented to hospital policies and general routines including ID bracelet, bed and alarms, visiting hours, pain management, procedures, bathroom and other care routines, personal items, smoking policy, room service/diet, and visiting hours. Information on how to activate the Rapid Response Team has been discussed. Patient/Family are encouraged to report perceived risks to care and to ask questions if they do not understand what they are told or what they should do.
[2024-05-08 22:14] VITALS: BMI 26.1
[2024-05-08 22:15] VITALS: BP 123/53; PULSE 84; RESP 20; TEMP 36.9; O2SAT 99
[2024-05-08 22:30] VITALS: PULSE 84; RESP 20; O2SAT 99
[2024-05-08] MEDS: PIPERACILLN/TAZ 3.375GM/NS50ML 3.375 GM/50 ML BAG IVPB (23:30)
[2024-05-09] MEDS: PIPERACILLN/TAZ 3.375GM/NS50ML 3.375 GM/50 ML BAG IVPB ×3 (05:29→17:05)
[2024-05-09 05:59] LABS: Basophils Absolute Auto 0.1 K/mm3 (0.0-0.1); Basophils Percent Auto 0.3 % (0.2-1.2); Eosinophils Absolute Auto 0.1 K/mm3 (0-0.3); Eosinophils Percent Auto 0.3 % (0-4.4); Hematocrit 27.2 % (42.0-52.0); Hemoglobin 8.6 g/dL (14.0-18.0); Immature Granulocyte Absolute 0.19 K/mm3 (0.00-0.031); Lymphocytes Absolute Auto 0.72 K/mm3 (0.9-3.2); Lymphocytes Percent Auto 3.8 % (18.3-44.2); Mean Corpuscular HGB Conc 31.6 g/dl (32-36); Mean Corpuscular Hemoglobin 28.6 pg (26-34); Mean Corpuscular Volume 90.4 fl (80-100); Mean Platelet Volume 9.5 fl (7.4-10.4); Monocytes Absolute Auto 1.4 K/mm3 (0.1-0.6); Monocytes Percent Auto 7.2 % (2.6-8.5); Neutrophils Absolute Auto 16.6 K/mm3 (1.3-6.7); Neutrophils Percent Auto 87.4 % (45.5-73.1); Platelet Count Result 455 k/mm3 (150-375); Red Blood Count 3.01 M/mm3 (4.6-6.20); Red Cell Distribution Width 14.7 % (11.5-14.5)
[2024-05-09 06:00] VITALS: BP 130/59; PULSE 86; RESP 20; TEMP 36.6; O2SAT 99
[2024-05-09 06:12] LABS: INR 1.5
[2024-05-09 06:13] LABS: Anion Gap 5 mmol/L (4-12); Blood Urea Nitrogen 22 mg/dL (9-20); Carbon Dioxide 26 mmol/L (22-30); Chloride 108 mmol/L (98-107); Estimated CRCL calculation 48 ml/min; Estimated Glomerular Filt Rate > 60; Glucose 117 mg/dL (65-110); Magnesium 1.6 mg/dL (1.6-2.3); Potassium 2.8 mmol/L (3.4-5.0); Sodium 139 mmol/L (137-145)
[2024-05-09] MEDS: POTASSIUM CHLORIDE INJ 40 MEQ in SODIUM CHLORIDE 0.9% IV 500 ML 127.55 MEQ IVPB (06:45)
[2024-05-09] MEDS: MAGNESIUM SULF 2 GM/WATER 50ML 2 GM/50 ML BAG IVPB (06:50)
[2024-05-09] MEDS: SERTRALINE HCL 50 MG TABLET PO (08:40)
[2024-05-09] MEDS: MEMANTINE 10 MG TABLET PO ×2 (08:40→17:05)
[2024-05-09] MEDS: PANTOPRAZOLE 40 MG TABLET PO ×2 (08:40→19:56)
[2024-05-09 08:50] VITALS: O2SAT 95
--- NOTE | 2024-05-09 10:23 | P.PNGS_ITS ---
Progress Note: A&P Assessment and Plan (1) Abscess of sigmoid colon due to diverticulitis: Code(s): K57.20 - Diverticulitis of large intestine with perforation and abscess without bleeding Status: Acute Assessment and Plan: * Continue IV antibiotics * Ordered CT-guided abscess drainage to be done in Radiology today for the perisigmoid abscesses * Will keep him NPO for procedure. Okay to advance to clear liquids if he tolerates the drainage procedure. (2) Liver abscess: Code(s): K75.0 - Abscess of liver Status: Acute Assessment and Plan: * Continue IV antibiotics * Possible percutaneous drainage of the liver abscess today in Radiology (3) Abnormal findings on diagnostic imaging of gallbladder: Code(s): R93.2 - Abnormal findings on diagnostic imaging of liver and biliary tract Status: Acute Assessment and Plan: * No complaints of right upper quadrant abdominal pain or tenderness on exam. Findings likely related to fasting. Continue to monitor. (4) Mild dementia: Code(s): F03.A0 - Unspecified dementia, mild, without behavioral disturbance, psychotic disturbance, mood disturbance, and anxiety Status: Acute Plan I have discussed the patient's case and plan of care with Dr. Sanches. Subjective Subjective Date/Time Seen: 05/09/24 09:23 Patient reports: no new complaints, flatus, no bowel movement and afebrile Interval history: Patient is seen with his daughter at the bedside today. He denies any abdominal pain or nausea. He has not received any analgesics since admission. White blood cell count was [id number] today. Exam Const: General: comfortable and no acute distress GI: Inspection: non-distended GI Palp: Yes Soft to palpation, Yes Tenderness to palpation present (GI) (Very mild left lower quadrant tenderness), No Guarding due to palpation present (GI) and No Rebound tenderness present Other: Palpable mildly tender mass in the left lower quadrant and the area of anterior abscess on the CT scan Objective Data Vital Signs Vital Signs: Vital Signs - 24 hr 05/08/24 11:12 05/08/24 14:02 05/08/24 15:34 Temperature 98.2 F 98.3 F Pulse Rate 92 92 88 Respiratory Rate 16 16 15 Blood Pressure 122/52 L 102/61 109/56 L Pulse Oximetry 100 96 96 Oxygen Delivery 05/08/24 17:44 05/08/24 22:15 05/08/24 22:30 Temperature 98.2 F 98.4 F Pulse Rate 76 84 84 Respiratory Rate 16 20 20 Blood Pressure 117/60 123/53 L Pulse Oximetry 98 99 99 Oxygen Delivery Room Air 05/09/24 06:00 05/09/24 08:50 05/09/24 08:40 Temperature 97.9 F Pulse Rate 86 Respiratory Rate 20 Blood Pressure 130/59 L Pulse Oximetry 99 95 Oxygen Delivery Room Air Room Air Intake/Output Intake/Output: Intake & Output 05/06/24 05/07/24 05/08/24 05/09/24 23:59 23:59 23:59 23:59 Intake Total 1100 1100 Balance 1100 1100 Meds/Results Medications: Active Medications Generic Name Dose Route Start Last Admin Trade Name Freq PRN Reason Stop Dose Admin Donepezil HCl 5 mg 05/09/24 21:00 Donepezil Hcl 5 Mg Tablet PO HS NINFA Piperacillin/Tazobactam/Dextrose 3.375 gm in 50 mls @ 100 mls/hr 05/08/24 23:00 05/09/24 05:59 Zosyn 3.375 Gm/Ns 50 Ml IVPB Infused Q6HR NINFA Infusion Potassium Chloride 40 meq/ 520 mls @ 127.547 mls/hr 05/09/24 06:45 05/09/24 06:45 Sodium Chloride IVPB 05/09/24 10:49 127.55 mls/hr ONCE ONE Administration Potassium Chloride 100 mls @ 50 mls/hr 05/09/24 10:50 Kcl 20 Meq/Sw 100 Ml IVPB 05/09/24 12:49 ONCE ONE Memantine 10 mg 05/09/24 09:00 05/09/24 08:40 Memantine 10 Mg Tablet PO 10 mg BID NINFA Administration Morphine Sulfate 2 mg 05/08/24 16:11 Morphine Sulfate (*Crx) 2 Mg/Ml Inj IV PUSH Q4H PRN Pain Rated 7-10 Ondansetron HCl 4 mg 05/08/24 16:11 Ondansetron Inj 4 Mg/2 Ml Vial IV PUSH Q6H PRN Nausea And Vomiting Pantoprazole Sodium 40 mg 05/09/24 09:00 05/09/24 08:40 Pantoprazole 40 Mg Tablet PO 40 mg Q12HR NINFA Administration Sertraline HCl 50 mg 05/09/24 09:00 05/09/24 08:40 Sertraline Hcl 50 Mg Tablet PO 50 mg DAILY NINFA Administration Radiology Results: ITS Impressions Abdomen/Pelvis CT 05/08/24 14:44 IMPRESSION: 1. Sigmoid diverticulitis with two perisigmoid abscesses. 2. 5.6 x 3.9 cm multiloculated cystic mass in the liver, consistent with abscess. 3. Gallbladder distention, which may be secondary to distention or acute cholecystitis. Wall thickening of the gallbladder adjacent to the liver mass is consistent with inflammation. Labs Labs: Laboratory Results - last 24 hr 05/08/24 05/08/24 05/09/24 12:40 14:02 05:41 WBC 19.8 H 19.0 H RBC 3.71 L 3.01 L Hgb 10.5 L 8.6 L Hct 33.9 L 27.2 L MCV 91.4 90.4 MCH 28.3 28.6 MCHC 31.0 L 31.6 L RDW 14.6 H 14.7 H Plt Count 580 H 455 H MPV 9.8 9.5 Immature Gran % (Auto) 1.0 H 1.0 H Neut % (Auto) 90.1 H 87.4 H Lymph % (Auto) 2.3 L 3.8 L [place] % (Auto) 6.1 7.2 Eos % (Auto) 0.3 0.3 Baso % (Auto) 0.2 0.3 Lymph # (Auto) 0.45 L 0.72 L [place] # (Auto) 1.2 H 1.4 H Eos # (Auto) 0.1 0.1 Baso # (Auto) 0.0 0.1 Abs Immat Gran (auto) 0.20 H 0.19 H Absolute Neuts (auto) 17.8 H 16.6 H Absolute Nucleated RBC 0.000 0.000 Nucleated RBC % 0.0 0.0 PT 18.0 H INR 1.5 Sodium 140 139 Potassium 3.5 2.8 L* Chloride 103 108 H Carbon Dioxide 27 26 Anion Gap 10 5 BUN 24 H 22 H Creatinine 1.10 1.10 Estim Creat Clear Calc 47 48 Estimated GFR > 60 > 60 Glucose 115 H 117 H Lactic Acid 1.2 Calcium 8.9 8.0 L Magnesium 1.8 1.6 Total Bilirubin 1.0 AST 20 ALT 23 Alkaline Phosphatase 103 Total Protein 7.0 Albumin 3.2 L Lipase 30 Urine Color Dark yellow Urine Appearance Cloudy H Urine pH 5.5 Ur Specific [place] 1.022 Urine Protein 1+ H Urine Glucose (UA) Negative Urine Ketones Trace H Ur Blood (Man) Negative Urine Nitrate Negative Urine Bilirubin 2+ H Urine Urobilinogen 1.0 Leukocyte Esterase Rfl Trace H Urine RBC 3-5 H Urine WBC 0-5 Ur Squamous Epith Cells Moderate Urine Bacteria None seen Urine Casts >20 Hyaline Casts Present
[2024-05-09] MEDS: KCL 20 MEQ/SW 100 ML 50 MEQ IVPB (10:37)
[2024-05-09 12:42] VITALS: BMI 26.1
[2024-05-09 12:51] VITALS: BP 127/54; PULSE 78; RESP 18; TEMP 37.3; O2SAT 96
--- NOTE | 2024-05-09 14:03 | P.PNIM_ITS ---
Progress Note: A&P Assessment and Plan (1) Abscess of sigmoid colon due to diverticulitis: Code(s): K57.20 - Diverticulitis of large intestine with perforation and abscess without bleeding Status: Acute Assessment and Plan: * Zosyn 3.375 gm IVPB q 6 * Surgery following. (2) Liver abscess: Code(s): K75.0 - Abscess of liver Status: Acute Assessment and Plan: * Zosyn 3.375 gm IVPB q 6 * Surgery following. * Percutaneous drain placed. * WBC 19.0 (3) Thickening of wall of gallbladder: Code(s): K82.8 - Other specified diseases of gallbladder Status: Acute Assessment and Plan: * Zosyn 3.375 gm IVPB q 6 * Surgery following. (4) Mild dementia: Code(s): F03.A0 - Unspecified dementia, mild, without behavioral disturbance, psychotic disturbance, mood disturbance, and anxiety Status: Acute Assessment and Plan: * Donepezil 5 mg PO qhs * Memantine 10 mg PO BID. (5) Chronic GERD: Code(s): K21.9 - Gastro-esophageal reflux disease without esophagitis Status: Acute Assessment and Plan: * Pantoprazole 40 mg PO q12 (6) Hypokalemia: Code(s): E87.6 - Hypokalemia Status: Acute Assessment and Plan: * K+ 2.8 received KCL 40 meq IVPB x1. * Repeat K+ 3.3 received KCL 40 meq IVPB x1. * Monitor labs Subjective Date/time seen: 05/09/24 14:03 Interval history: Patient shortness of breath, headache, dizziness, nausea, or vomiting. Patient reports having loose stools. Daughters at bedside. Denies pain from percutaneous drain placed today. Review of Systems Review of Systems: All systems reviewed & are unremarkable except as noted in HPI and below Exam Const: General: comfortable and no acute distress Eyes: Sclera: sclerae normal Resp: Effort & Inspection: normal respiratory effort Auscultation: clear to auscultation bilaterally Cardio: Rate: regular rate Rhythm: regular rhythm GI: GI Palp: Yes Soft to palpation Auscultation: normal bowel sounds Other: percutaneous drain in place. Cream colored and blood tinge drainage. Skin: General skin exam: no rashes or lesions noted Extrem: General: normal to inspection and no pedal edema Psych: Affect: normal affect Objective Data Vital Signs Vital Signs: Vital Signs - 24 hr 05/08/24 15:34 05/08/24 17:44 05/08/24 22:15 Temperature 98.3 F 98.2 F 98.4 F Pulse Rate 88 76 84 Respiratory Rate 15 16 20 Blood Pressure 109/56 L 117/60 123/53 L Pulse Oximetry 96 98 99 Oxygen Delivery 05/08/24 22:30 05/09/24 06:00 05/09/24 08:50 Temperature 97.9 F Pulse Rate 84 86 Respiratory Rate 20 20 Blood Pressure 130/59 L Pulse Oximetry 99 99 95 Oxygen Delivery Room Air Room Air 05/09/24 08:40 05/09/24 12:51 Temperature 99.1 F Pulse Rate 78 Respiratory Rate 18 Blood Pressure 127/54 L Pulse Oximetry 96 Oxygen Delivery Room Air Intake/Output Intake/Output: Intake & Output 05/06/24 05/07/24 05/08/24 05/09/24 23:59 23:59 23:59 23:59 Intake Total 1100 1100 Balance 1100 1100 Meds/Results Medications: Active Medications Generic Name Dose Route Start Last Admin Trade Name Freq PRN Reason Stop Dose Admin Donepezil HCl 5 mg 05/09/24 21:00 Donepezil Hcl 5 Mg Tablet PO HS [facility] Piperacillin/Tazobactam/Dextrose 3.375 gm in 50 mls @ 100 mls/hr 05/08/24 23:00 05/09/24 12:57 Zosyn 3.375 Gm/Ns 50 Ml IVPB 100 mls/hr Q6HR NINFA Administration Memantine 10 mg 05/09/24 09:00 05/09/24 08:40 Memantine 10 Mg Tablet PO 10 mg BID NINFA Administration Morphine Sulfate 2 mg 05/08/24 16:11 Morphine Sulfate (*Crx) 2 Mg/Ml Inj IV PUSH Q4H PRN Pain Rated 7-10 Ondansetron HCl 4 mg 05/08/24 16:11 Ondansetron Inj 4 Mg/2 Ml Vial IV PUSH Q6H PRN Nausea And Vomiting Pantoprazole Sodium 40 mg 05/09/24 09:00 05/09/24 08:40 Pantoprazole 40 Mg Tablet PO 40 mg Q12HR NINFA Administration Sertraline HCl 50 mg 05/09/24 09:00 05/09/24 08:40 Sertraline Hcl 50 Mg Tablet PO 50 mg DAILY NINFA Administration Radiology Results: ITS Impressions Abdomen/Pelvis CT 05/08/24 14:44 IMPRESSION: 1. Sigmoid diverticulitis with two perisigmoid abscesses. 2. 5.6 x 3.9 cm multiloculated cystic mass in the liver, consistent with abscess. 3. Gallbladder distention, which may be secondary to distention or acute cholecystitis. Wall thickening of the gallbladder adjacent to the liver mass is consistent with inflammation. Labs Labs: Laboratory Results - last 24 hr 05/08/24 05/08/24 05/09/24 12:40 14:02 05:41 WBC 19.0 H RBC 3.01 L Hgb 8.6 L Hct 27.2 L MCV 90.4 MCH 28.6 MCHC 31.6 L RDW 14.7 H Plt Count 455 H MPV 9.5 Immature Gran % (Auto) 1.0 H Neut % (Auto) 87.4 H Lymph % (Auto) 3.8 L [place] % (Auto) 7.2 Eos % (Auto) 0.3 Baso % (Auto) 0.3 Lymph # (Auto) 0.72 L [place] # (Auto) 1.4 H Eos # (Auto) 0.1 Baso # (Auto) 0.1 Abs Immat Gran (auto) 0.19 H Absolute Neuts (auto) 16.6 H Absolute Nucleated RBC 0.000 Nucleated RBC % 0.0 PT 18.0 H INR 1.5 Sodium 140 139 Potassium 3.5 2.8 L* Chloride 103 108 H Carbon Dioxide 27 26 Anion Gap 10 5 BUN 24 H 22 H Creatinine 1.10 1.10 Estim Creat Clear Calc 47 48 Estimated GFR > 60 > 60 Glucose 115 H 117 H Calcium 8.9 8.0 L Magnesium 1.6 Total Bilirubin 1.0 AST 20 ALT 23 Alkaline Phosphatase 103 Total Protein 7.0 Albumin 3.2 L Lipase 30 Urine Color Dark yellow Urine Appearance Cloudy H Urine pH 5.5 Ur Specific [place] 1.022 Urine Protein 1+ H Urine Glucose (UA) Negative Urine Ketones Trace H Ur Blood (Man) Negative Urine Nitrate Negative Urine Bilirubin 2+ H Urine Urobilinogen 1.0 Leukocyte Esterase Rfl Trace H Urine RBC 3-5 H Urine WBC 0-5 Ur Squamous Epith Cells Moderate Urine Bacteria None seen Urine Casts >20 Hyaline Casts Present Quality VTE Prophylaxis VTE prophylaxis: mechanical ordered
[2024-05-09 14:12] LABS: Anion Gap 6 mmol/L (4-12); Blood Urea Nitrogen 20 mg/dL (9-20); Calcium 8.2 mg/dL (8.4-10.2); Carbon Dioxide 24 mmol/L (22-30); Chloride 110 mmol/L (98-107); Estimated CRCL calculation 53 ml/min; Estimated Glomerular Filt Rate > 60; Glucose 112 mg/dL (65-110); Potassium 3.3 mmol/L (3.4-5.0); Sodium 140 mmol/L (137-145)
[2024-05-09] MEDS: POTASSIUM CHLORIDE INJ 40 MEQ in SODIUM CHLORIDE 0.9% IV 500 ML 130 MEQ IVPB (15:18)
[2024-05-09 19:56] VITALS: BP 133/63; PULSE 80; RESP 16; TEMP 37.1; O2SAT 97
[2024-05-09] MEDS: DONEPEZIL HCL 5 MG TABLET PO (19:56)
[2024-05-09 20:00] VITALS: PULSE 80; RESP 16; O2SAT 97
[2024-05-10] MEDS: PIPERACILLN/TAZ 3.375GM/NS50ML 3.375 GM/50 ML BAG IVPB ×4 (01:07→17:06)
[2024-05-10] MEDS: MORPHINE SULFATE (*CRX) 2 MG/ML INJ IV PUSH (01:07)
[2024-05-10 05:06] VITALS: BP 124/61; PULSE 73; RESP 16; TEMP 36.5; O2SAT 95
[2024-05-10 05:47] LABS: Basophils Percent Auto 0.2 % (0.2-1.2); Eosinophils Absolute Auto 0.2 K/mm3 (0-0.3); Eosinophils Percent Auto 1.4 % (0-4.4); Hematocrit 27.5 % (42.0-52.0); Hemoglobin 8.4 g/dL (14.0-18.0); Immature Granulocyte Absolute 0.16 K/mm3 (0.00-0.031); Lymphocytes Absolute Auto 0.83 K/mm3 (0.9-3.2); Lymphocytes Percent Auto 5.4 % (18.3-44.2); Mean Corpuscular HGB Conc 30.5 g/dl (32-36); Mean Corpuscular Volume 91.7 fl (80-100); Mean Platelet Volume 9.6 fl (7.4-10.4); Monocytes Percent Auto 6.3 % (2.6-8.5); Neutrophils Absolute Auto 13.1 K/mm3 (1.3-6.7); Neutrophils Percent Auto 85.7 % (45.5-73.1); Platelet Count Result 491 k/mm3 (150-375); Red Cell Distribution Width 14.8 % (11.5-14.5); White Blood Count 15.3 K/mm3 (4.5-10.0)
[2024-05-10 05:58] LABS: Alanine Aminotransferase 17 U/L (6-50); Albumin Level 2.7 g/dL (3.5-5.1); Alkaline Phosphatase 86 U/L (38-126); Anion Gap 6 mmol/L (4-12); Aspartate Amino Transferase 18 U/L (17-59); Bilirubin,Total 0.8 mg/dL (0.2-1.3); Blood Urea Nitrogen 17 mg/dL (9-20); Carbon Dioxide 26 mmol/L (22-30); Chloride 108 mmol/L (98-107); Estimated CRCL calculation 58 ml/min; Estimated Glomerular Filt Rate > 60; Glucose 109 mg/dL (65-110); Potassium 3.5 mmol/L (3.4-5.0); Sodium 140 mmol/L (137-145)
[2024-05-10] MEDS: PANTOPRAZOLE 40 MG TABLET PO ×2 (07:57→20:57)
[2024-05-10] MEDS: SERTRALINE HCL 50 MG TABLET PO (07:57)
[2024-05-10] MEDS: MEMANTINE 10 MG TABLET PO ×2 (07:57→17:07)
[2024-05-10 08:00] VITALS: O2SAT 95
--- NOTE | 2024-05-10 08:07 | PM.IMPN ---
Progress Note: A&P Assessment and Plan (1) Abscess of sigmoid colon due to diverticulitis: Code(s): K57.20 - Diverticulitis of large intestine with perforation and abscess without bleeding Status: Acute Assessment and Plan: - CT Abdomen/pelvis: 1. Sigmoid diverticulitis with two perisigmoid abscesses. 2. 5.6 x 3.9 cm multiloculated cystic mass in the liver, consistent with abscess. 3. Gallbladder distention, which may be secondary to distention or acute cholecystitis. Wall thickening of the gallbladder adjacent to the liver mass is consistent with inflammation. - Antibiotics: Zosyn 3.375g q6hr started 05/08 - Antiemetics - Analgesics - PPI - Antipyretics - Diet: clear liquid diet, advance as tolerated - Blood cultures: NGTD - Abscess culture and groin culture pending - Monitor vital signs, I&Os, track stool output, watch for bloody stools, neuro status and patient is a fall risk - Monitor serum electrolytes and CBC - Surgery consulted S/p catheter placement to the anterior midline pelvic intraperitoneal abscess and in a left inguinal extraperitoneal abscess on 05/09. Confirmed with imaging. (2) Liver abscess: Code(s): K75.0 - Abscess of liver Status: Acute Assessment and Plan: - CT Abdomen/pelvis: 1. Sigmoid diverticulitis with two perisigmoid abscesses. 2. 5.6 x 3.9 cm multiloculated cystic mass in the liver, consistent with abscess. 3. Gallbladder distention, which may be secondary to distention or acute cholecystitis. Wall thickening of the gallbladder adjacent to the liver mass is consistent with inflammation. See antibiotic plan above. - Surgery consulted S/p catheter placement to the anterior midline pelvic intraperitoneal abscess and in a left inguinal extraperitoneal abscess on 05/09. Confirmed with imaging. (3) Abnormal findings on diagnostic imaging of gallbladder: Code(s): R93.2 - Abnormal findings on diagnostic imaging of liver and biliary tract Status: Acute Assessment and Plan: - CT Abdomen/pelvis: 1. Sigmoid diverticulitis with two perisigmoid abscesses. 2. 5.6 x 3.9 cm multiloculated cystic mass in the liver, consistent with abscess. 3. Gallbladder distention, which may be secondary to distention or acute cholecystitis. Wall thickening of the gallbladder adjacent to the liver mass is consistent with inflammation. - Surgery consulted No complaints of right upper quadrant abdominal pain. Findings likely related to fasting. Continue to monitor. (4) Benign essential hypertension: Code(s): I10 - Essential (primary) hypertension Status: Acute Assessment and Plan: Chronic. - Continue holding amlodipine as blood pressures have been stable. - Monitor and resume when appropriate. Time Spent With Patient Time with patient: 25 - 35 minutes Subjective Date/time seen: 05/10/24 08:07 Interval history: 79-year-old male with hypertension, hyperlipidemia, type 2 diabetes mellitus, gastroesophageal reflux disease, and mild dementia who presented to the emergency department for evaluation of abdominal pain. patient is pleasant lying comfortably in bed with family at bedside. Has no complaints this time denying chest pain, shortness a breath, nausea/vomiting, and abdominal pain. His drains are in place with minimal drainage. He remains on Zosyn and white blood cell count is improving. Review of Systems Review of Systems: All systems reviewed & are unremarkable except as noted in HPI and below Exam Narrative: AF HR 73 RR 16 SpO2 95 BP 124/61 General: male in no acute respiratory distress who is nontoxic appearing, lying semi recumbent in bed. HEENT: Normocephalic. Atraumatic. Extraocular movement intact. Sclera clear and anicteric. No facial asymmetry. Chest: Lungs are clear to auscultation bilaterally. No wheezes or crackles. CV: Heart was regular rate and rhythm. S1/S2. No murmurs, gallops, or rubs. Abd: Abdomen was soft. Tender. Nondistended. Positive bowel sounds. No organomegaly or masses. Drains in place with minimal discharge. Ext: No clubbing, cyanosis, or edema. 2+ DP pulses bilaterally. Neuro: Patient is alert. Cranial nerves 2-12 are intact. Speech is clear. Objective Data Vital Signs Vital Signs: Vital Signs - 24 hr 05/09/24 08:50 05/09/24 08:40 05/09/24 12:51 Temperature 99.1 F Pulse Rate 78 Respiratory Rate 18 Blood Pressure 127/54 L Pulse Oximetry 95 96 Oxygen Delivery Room Air Room Air 05/09/24 19:56 05/09/24 20:00 05/10/24 05:06 Temperature 98.7 F 97.7 F Pulse Rate 80 80 73 Respiratory Rate 16 16 16 Blood Pressure 133/63 124/61 Pulse Oximetry 97 97 95 Oxygen Delivery Room Air Intake/Output Intake/Output: Intake & Output 05/07/24 05/08/24 05/09/24 05/10/24 23:59 23:59 23:59 23:59 Intake Total 1100 2290 300 Output Total 15 75 Balance 1100 2275 225 Meds/Results Medications: Active Medications Generic Name Dose Route Start Last Admin Trade Name Freq PRN Reason Stop Dose Admin Donepezil HCl 5 mg 05/09/24 21:00 05/09/24 19:56 Donepezil Hcl 5 Mg Tablet PO 5 mg HS NINFA Administration Piperacillin/Tazobactam/Dextrose 3.375 gm in 50 mls @ 100 mls/hr 05/08/24 23:00 05/10/24 05:47 Zosyn 3.375 Gm/Ns 50 Ml IVPB 100 mls/hr Q6HR NINFA Administration Memantine 10 mg 05/09/24 09:00 05/10/24 07:57 Memantine 10 Mg Tablet PO 10 mg BID NINFA Administration Morphine Sulfate 2 mg 05/08/24 16:11 05/10/24 01:07 Morphine Sulfate (*Crx) 2 Mg/Ml Inj IV PUSH 2 mg Q4H PRN Administration Pain Rated 7-10 Ondansetron HCl 4 mg 05/08/24 16:11 Ondansetron Inj 4 Mg/2 Ml Vial IV PUSH Q6H PRN Nausea And Vomiting Pantoprazole Sodium 40 mg 05/09/24 09:00 05/10/24 07:57 Pantoprazole 40 Mg Tablet PO 40 mg Q12HR NINFA Administration Sertraline HCl 50 mg 05/09/24 09:00 05/10/24 07:57 Sertraline Hcl 50 Mg Tablet PO 50 mg DAILY NINFA Administration Radiology Results: ITS Impressions Abdomen/Pelvis CT 05/08/24 14:44 IMPRESSION: 1. Sigmoid diverticulitis with two perisigmoid abscesses. 2. 5.6 x 3.9 cm multiloculated cystic mass in the liver, consistent with abscess. 3. Gallbladder distention, which may be secondary to distention or acute cholecystitis. Wall thickening of the gallbladder adjacent to the liver mass is consistent with inflammation. Catheter Placement CT 05/09/24 14:18 IMPRESSION: 1[address] CT-guided abscess drainage catheter placement within an anterior midline pelvic intraperitoneal abscess. 15 mL fluid was sent for Gram stain and aerobic and anaerobic cultures. 2. Successful CT-guided abscess drainage catheter placement within a left inguinal extraperitoneal abscess cavity. 10 mL fluid was sent for Gram stain and aerobic and anaerobic cultures. 3. The catheters will be managed by Dr. Sanches. Catheter Placement CT 05/09/24 14:18 IMPRESSION: 1. Successful CT-guided abscess drainage catheter placement within an anterior midline pelvic intraperitoneal abscess. 15 mL fluid was sent for Gram stain and aerobic and anaerobic cultures. 2. Successful CT-guided abscess drainage catheter placement within a left inguinal extraperitoneal abscess cavity. 10 mL fluid was sent for Gram stain and aerobic and anaerobic cultures. 3. The catheters will be managed by Dr. Sanches. Labs Labs: Laboratory Results - last 24 hr 05/09/24 05/10/24 13:44 05:24 WBC 15.3 H RBC 3.00 L Hgb 8.4 L Hct 27.5 L MCV 91.7 MCH 28.0 MCHC 30.5 L RDW 14.8 H Plt Count 491 H MPV 9.6 Immature Gran % (Auto) 1.0 H Neut % (Auto) 85.7 H Lymph % (Auto) 5.4 L [place] % (Auto) 6.3 Eos % (Auto) 1.4 Baso % (Auto) 0.2 Lymph # (Auto) 0.83 L [place] # (Auto) 1.0 H Eos # (Auto) 0.2 Baso # (Auto) 0.0 Abs Immat Gran (auto) 0.16 H Absolute Neuts (auto) 13.1 H Absolute Nucleated RBC 0.000 Nucleated RBC % 0.0 Sodium 140 140 Potassium 3.3 L 3.5 Chloride 110 H 108 H Carbon Dioxide 24 26 Anion Gap 6 6 BUN 20 17 Creatinine 1.00 0.90 Estim Creat Clear Calc 53 58 Estimated GFR > 60 > 60 Glucose 112 H 109 Calcium 8.2 L 8.0 L Magnesium 2.0 Total Bilirubin 0.8 AST 18 ALT 17 Alkaline Phosphatase 86 Total Protein 6.0 L Albumin 2.7 L Quality VTE Prophylaxis VTE prophylaxis: mechanical ordered
[2024-05-10] MEDS: ACETAMINOPHEN 325 MG TABLET 650 MG PO ×2 (08:19→20:58)
[2024-05-10 14:00] VITALS: BP 108/60; PULSE 67; RESP 14; TEMP 36.4; O2SAT 97
--- NOTE | 2024-05-10 15:20 | P.PNGS_ITS ---
Progress Note: A&P Assessment and Plan (1) Abscess of sigmoid colon due to diverticulitis: Code(s): K57.20 - Diverticulitis of large intestine with perforation and abscess without bleeding Status: Acute Assessment and Plan: * S/p percutaneous drainage of the two perisigmoid abscess in Radiology on 05/09/24. One drain is putting out more drainage than the other but they are not well labeled. I will have nursing meliton the drains as #1 and #2, and begin documenting output under these labels so it is easier to keep track of their output. Both drains are exiting in the same location in the mid lower abdomen therefore more difficult to tell them apart just by location. * Will advance to a full liquid diet * Continue IV antibiotics * Potassium improving, but still only 3.5 today. Will give KCL again today and r epeat labs again tomorrow. (2) Liver abscess: Code(s): K75.0 - Abscess of liver Status: Acute Assessment and Plan: * Liver abscess on initial CT, which is likely related to heterogenous spread of the diverticulitis. Continue IV antibiotics. * Discussed with the Radiologist yesterday after the drainage procedure, and there are multiple small loculations and likely this would only drain a small area of fluid rather than the entire fluid collection. Will continue to follow with IV antibiotics and can repeat imaging eventually to monitor the liver abscess as well. If this becomes a more consolidated fluid collection and the loculations break up, then we could consider percutaneous drainage at that time. (3) Mild dementia: Code(s): F03.A0 - Unspecified dementia, mild, without behavioral disturbance, psychotic disturbance, mood disturbance, and anxiety Status: Acute Plan I have discussed the patient's case and plan of care with Dr. Sanches. Subjective Subjective Date/Time Seen: 05/10/24 15:20 Post Op day: 1 Patient reports: no new complaints, tolerating liquids well, flatus, diarrhea (a few loose stools daily, less than 5/day) and afebrile Interval history: Patient has his daughter at the bedside. He denies any abdominal pain today. He is currently on IV Zosyn. Exam Const: General: comfortable and no acute distress Orientation/consciousness: patient oriented x3 GI: Inspection: non-distended GI Palp: Yes Soft to palpation, Yes Tenderness to palpation present (GI) (Tenderness near the percutaneous drain in the mid lower abdomen and LLQ), No Guarding due to palpation present (GI), No Rigid due to palpation and No Rebound tenderness present Auscultation: normal bowel sounds Other: Perc drain x 2 with both drains coming from a gauze dressing in the mid lower abdomen. I will have nursing meliton the drains as drain #1 and drain #2 since they are both exiting near the same area. One drain has scant sykes purulent drainage in the bag and the other drain has pink/sykes purulent drainage. Dressing is dry and intact. Objective Data Vital Signs Vital Signs: Vital Signs - 24 hr 05/09/24 19:56 05/09/24 20:00 05/10/24 05:06 Temperature 98.7 F 97.7 F Pulse Rate 80 80 73 Respiratory Rate 16 16 16 Blood Pressure 133/63 124/61 Pulse Oximetry 97 97 95 Oxygen Delivery Room Air 05/10/24 08:00 05/10/24 14:00 Temperature 97.5 F L Pulse Rate 67 Respiratory Rate 14 Blood Pressure 108/60 Pulse Oximetry 95 97 Oxygen Delivery Room Air Intake/Output Intake/Output: Intake & Output 05/07/24 05/08/24 05/09/24 05/10/24 23:59 23:59 23:59 23:59 Intake Total 1100 2290 760 Output Total 15 75 Balance 1100 227 685 Meds/Results Medications: Active Medications Generic Name Dose Route Start Last Admin Trade Name Freq PRN Reason Stop Dose Admin Acetaminophen 650 mg 05/10/24 08:06 05/10/24 08:19 Acetaminophen 325 Mg Tablet PO 650 mg Q6H PRN Administration Mild Pain (1-3) or Fever Donepezil HCl 5 mg 05/09/24 21:00 05/09/24 19:56 Donepezil Hcl 5 Mg Tablet PO 5 mg HS NINFA Administration Piperacillin/Tazobactam/Dextrose 3.375 gm in 50 mls @ 100 mls/hr 05/08/24 23:00 05/10/24 12:05 Zosyn 3.375 Gm/Ns 50 Ml IVPB Infused Q6HR NINFA Infusion Memantine 10 mg 05/09/24 09:00 05/10/24 07:57 Memantine 10 Mg Tablet PO 10 mg BID NINFA Administration Morphine Sulfate 2 mg 05/08/24 16:11 05/10/24 01:07 Morphine Sulfate (*Crx) 2 Mg/Ml Inj IV PUSH 2 mg Q4H PRN Administration Pain Rated 7-10 Ondansetron HCl 4 mg 05/08/24 16:11 Ondansetron Inj 4 Mg/2 Ml Vial IV PUSH Q6H PRN Nausea And Vomiting Pantoprazole Sodium 40 mg 05/09/24 09:00 05/10/24 07:57 Pantoprazole 40 Mg Tablet PO 40 mg Q12HR NINFA Administration Sertraline HCl 50 mg 05/09/24 09:00 05/10/24 07:57 Sertraline Hcl 50 Mg Tablet PO 50 mg DAILY NINFA Administration Radiology Results: ITS Impressions Abdomen/Pelvis CT 05/08/24 14:44 IMPRESSION: 1. Sigmoid diverticulitis with two perisigmoid abscesses. 2. 5.6 x 3.9 cm multiloculated cystic mass in the liver, consistent with abscess. 3. Gallbladder distention, which may be secondary to distention or acute cholecystitis. Wall thickening of the gallbladder adjacent to the liver mass is consistent with inflammation. Catheter Placement CT 05/09/24 14:18 IMPRESSION: 1[address] Successful CT-guided abscess drainage catheter placement within an anterior midline pelvic intraperitoneal abscess. 15 mL fluid was sent for Gram stain and aerobic and anaerobic cultures. 2. Successful CT-guided abscess drainage catheter placement within a left inguinal extraperitoneal abscess cavity. 10 mL fluid was sent for Gram stain and aerobic and anaerobic cultures. 3. The catheters will be managed by Dr. Sanches. Catheter Placement CT 05/09/24 14:18 IMPRESSION: 1. Successful CT-guided abscess drainage catheter placement within an anterior midline pelvic intraperitoneal abscess. 15 mL fluid was sent for Gram stain and aerobic and anaerobic cultures. 2. Successful CT-guided abscess drainage catheter placement within a left inguinal extraperitoneal abscess cavity. 10 mL fluid was sent for Gram stain and aerobic and anaerobic cultures. 3. The catheters will be managed by Dr. Sanches. Labs Labs: Laboratory Results - last 24 hr 05/10/24 05:24 WBC 15.3 H RBC 3.00 L Hgb 8.4 L Hct 27.5 L MCV 91.7 MCH 28.0 MCHC 30.5 L RDW 14.8 H Plt Count 491 H MPV 9.6 Immature Gran % (Auto) 1.0 H Neut % (Auto) 85.7 H Lymph % (Auto) 5.4 L [place] % (Auto) 6.3 Eos % (Auto) 1.4 Baso % (Auto) 0.2 Lymph # (Auto) 0.83 L [place] # (Auto) 1.0 H Eos # (Auto) 0.2 Baso # (Auto) 0.0 Abs Immat Gran (auto) 0.16 H Absolute Neuts (auto) 13.1 H Absolute Nucleated RBC 0.000 Nucleated RBC % 0.0 Sodium 140 Potassium 3.5 Chloride 108 H Carbon Dioxide 26 Anion Gap 6 BUN 17 Creatinine 0.90 Estim Creat Clear Calc 58 Estimated GFR > 60 Glucose 109 Calcium 8.0 L Magnesium 2.0 Total Bilirubin 0.8 AST 18 ALT 17 Alkaline Phosphatase 86 Total Protein 6.0 L Albumin 2.7 L
[2024-05-10] MEDS: POTASSIUM CHLORIDE 20 MEQ ER TABLET PO (17:07)
[2024-05-10 20:00] VITALS: PULSE 84; RESP 18; O2SAT 94
[2024-05-10] MEDS: DONEPEZIL HCL 5 MG TABLET PO (20:57)
[2024-05-10 21:26] VITALS: BP 131/63; PULSE 84; RESP 18; TEMP 36.8; O2SAT 94
[2024-05-11] MEDS: PIPERACILLN/TAZ 3.375GM/NS50ML 3.375 GM/50 ML BAG IVPB ×5 (01:26→23:48)
[2024-05-11 05:21] LABS: Basophils Percent Auto 0.3 % (0.2-1.2); Eosinophils Absolute Auto 0.3 K/mm3 (0-0.3); Eosinophils Percent Auto 1.8 % (0-4.4); Hematocrit 29.5 % (42.0-52.0); Hemoglobin 9.2 g/dL (14.0-18.0); Immature Granulocyte Absolute 0.13 K/mm3 (0.00-0.031); Immature Granulocyte Percent A 0.9 % (0-0.5); Lymphocytes Absolute Auto 0.59 K/mm3 (0.9-3.2); Lymphocytes Percent Auto 4.2 % (18.3-44.2); Mean Corpuscular HGB Conc 31.2 g/dl (32-36); Mean Corpuscular Hemoglobin 28.3 pg (26-34); Mean Corpuscular Volume 90.8 fl (80-100); Mean Platelet Volume 9.4 fl (7.4-10.4); Monocytes Absolute Auto 0.8 K/mm3 (0.1-0.6); Monocytes Percent Auto 5.6 % (2.6-8.5); Neutrophils Absolute Auto 12.1 K/mm3 (1.3-6.7); Neutrophils Percent Auto 87.2 % (45.5-73.1); Platelet Count Result 499 k/mm3 (150-375); Red Blood Count 3.25 M/mm3 (4.6-6.20); Red Cell Distribution Width 14.8 % (11.5-14.5); White Blood Count 13.9 K/mm3 (4.5-10.0)
[2024-05-11 05:34] VITALS: BP 129/76; PULSE 76; RESP 20; TEMP 36.4; O2SAT 96
[2024-05-11 05:34] LABS: Alanine Aminotransferase 21 U/L (6-50); Albumin Level 2.7 g/dL (3.5-5.1); Alkaline Phosphatase 84 U/L (38-126); Anion Gap 9 mmol/L (4-12); Aspartate Amino Transferase 22 U/L (17-59); Bilirubin,Total 0.8 mg/dL (0.2-1.3); Blood Urea Nitrogen 13 mg/dL (9-20); Carbon Dioxide 25 mmol/L (22-30); Chloride 106 mmol/L (98-107); Estimated CRCL calculation 65 ml/min; Estimated Glomerular Filt Rate > 60; Glucose 101 mg/dL (65-110); Magnesium 1.8 mg/dL (1.6-2.3); Potassium 3.1 mmol/L (3.4-5.0); Sodium 140 mmol/L (137-145)
[2024-05-11] MEDS: SERTRALINE HCL 50 MG TABLET PO (08:08)
[2024-05-11] MEDS: PANTOPRAZOLE 40 MG TABLET PO ×2 (08:08→21:21)
[2024-05-11] MEDS: MEMANTINE 10 MG TABLET PO ×2 (08:09→16:21)
--- NOTE | 2024-05-11 08:45 | PM.IMPN ---
Progress Note: A&P Assessment and Plan (1) Abscess of sigmoid colon due to diverticulitis: Code(s): K57.20 - Diverticulitis of large intestine with perforation and abscess without bleeding Status: Acute Assessment and Plan: - CT Abdomen/pelvis: 1. Sigmoid diverticulitis with two perisigmoid abscesses. 2. 5.6 x 3.9 cm multiloculated cystic mass in the liver, consistent with abscess. 3. Gallbladder distention, which may be secondary to distention or acute cholecystitis. Wall thickening of the gallbladder adjacent to the liver mass is consistent with inflammation. - Antibiotics: Zosyn 3.375g q6hr started 05/08 - Antiemetics - Analgesics - PPI - Antipyretics - Diet: regular - Blood cultures: NGTD - Abscess culture: preliminary- Strep constellatus and ecoli - Groin culture: preliminary- strep constellatus - Monitor vital signs, I&Os, track stool output, watch for bloody stools, neuro status and patient is a fall risk - Monitor serum electrolytes and CBC - Surgery consulted S/p catheter placement to the anterior midline pelvic intraperitoneal abscess and in a left inguinal extraperitoneal abscess on 05/09. Confirmed with imaging. (2) Liver abscess: Code(s): K75.0 - Abscess of liver Status: Acute Assessment and Plan: - CT Abdomen/pelvis: 1. Sigmoid diverticulitis with two perisigmoid abscesses. 2. 5.6 x 3.9 cm multiloculated cystic mass in the liver, consistent with abscess. 3. Gallbladder distention, which may be secondary to distention or acute cholecystitis. Wall thickening of the gallbladder adjacent to the liver mass is consistent with inflammation. See antibiotic plan above. - Surgery consulted There are multiple small loculations and likely this would only drain a small area of fluid rather than the entire fluid collection. Will continue to follow with IV antibiotics and can repeat imaging eventually to monitor the liver abscess as well. If this becomes a more consolidated fluid collection and the loculations break up, then consider percutaneous drainage (3) Abnormal findings on diagnostic imaging of gallbladder: Code(s): R93.2 - Abnormal findings on diagnostic imaging of liver and biliary tract Status: Acute Assessment and Plan: - CT Abdomen/pelvis: 1. Sigmoid diverticulitis with two perisigmoid abscesses. 2. 5.6 x 3.9 cm multiloculated cystic mass in the liver, consistent with abscess. 3. Gallbladder distention, which may be secondary to distention or acute cholecystitis. Wall thickening of the gallbladder adjacent to the liver mass is consistent with inflammation. - Surgery consulted No complaints of right upper quadrant abdominal pain. Findings likely related to fasting. Continue to monitor. (4) Benign essential hypertension: Code(s): I10 - Essential (primary) hypertension Status: Acute Assessment and Plan: Chronic. - Continue holding amlodipine as blood pressures have been stable. - Monitor and resume when appropriate. (5) Anemia: Code(s): D64.9 - Anemia, unspecified Status: Acute Assessment and Plan: H/H 10.5/33.9 on admission, previously in the 10s on 05/04. - H/H 9.2/29.5 on am labs - No signs of active bleeding, denies bloody urine/stools and no blood seen in the drains - Iron panel: iron 16, TIBC 151, % sat 11 started on iron supplementation - Folate/b12 WNL - monitor Time Spent With Patient Time with patient: 25 - 35 minutes Subjective Date/time seen: 05/11/24 08:45 Interval history: 79-year-old male with hypertension, hyperlipidemia, type 2 diabetes mellitus, gastroesophageal reflux disease, and mild dementia who presented to the emergency department for evaluation of abdominal pain. Patient is pleasant sitting comfortably in his bed with at bedside. He has no complaints at this time denying chest pain, shortness for breath, nausea/ vomiting, and abdominal pain. He was tolerating his full liquid diet well and was advanced to regular by surgery today. Review of Systems Review of Systems: All systems reviewed & are unremarkable except as noted in HPI and below Exam Narrative: AF HR 76 RR 20 Spo2 96 BP 129/76 General: male in no acute respiratory distress who is nontoxic appearing, lying semi recumbent in bed. HEENT: Normocephalic. Atraumatic. Extraocular movement intact. Sclera clear and anicteric. No facial asymmetry. Chest: Lungs are clear to auscultation bilaterally. No wheezes or crackles. CV: Heart was regular rate and rhythm. S1/S2. No murmurs, gallops, or rubs. Abd: Abdomen was soft. Tender. Nondistended. Positive bowel sounds. No organomegaly or masses. Drains in place with minimal discharge. Ext: No clubbing, cyanosis, or edema. 2+ DP pulses bilaterally. Neuro: Patient is alert. Cranial nerves 2-12 are intact. Speech is clear. Objective Data Vital Signs Vital Signs: Vital Signs - 24 hr 05/10/24 14:00 05/10/24 21:26 05/10/24 20:00 Temperature 97.5 F L 98.3 F Pulse Rate 67 84 84 Respiratory Rate 14 18 18 Blood Pressure 108/60 131/63 Pulse Oximetry 97 94 94 Oxygen Delivery Room Air 05/11/24 05:34 Temperature 97.6 F Pulse Rate 76 Respiratory Rate 20 Blood Pressure 129/76 Pulse Oximetry 96 Oxygen Delivery Intake/Output Intake/Output: Intake & Output 05/08/24 05/09/24 05/10/24 05/11/24 23:59 23:59 23:59 23:59 Intake Total 1100 2290 928 300 Output Total 15 95 Balance 1100 2275 833 300 Meds/Results Medications: Active Medications Generic Name Dose Route Start Last Admin Trade Name Freq PRN Reason Stop Dose Admin Acetaminophen 650 mg 05/10/24 08:06 05/10/24 20:58 Acetaminophen 325 Mg Tablet PO 650 mg Q6H PRN Administration Mild Pain (1-3) or Fever Donepezil HCl 5 mg 05/09/24 21:00 05/10/24 20:57 Donepezil Hcl 5 Mg Tablet PO 5 mg HS NINFA Administration Piperacillin/Tazobactam/Dextrose 3.375 gm in 50 mls @ 100 mls/hr 05/08/24 23:00 05/11/24 06:01 Zosyn 3.375 Gm/Ns 50 Ml IVPB Infused Q6HR NINFA Infusion Memantine 10 mg 05/09/24 09:00 05/11/24 08:09 Memantine 10 Mg Tablet PO 10 mg BID NINFA Administration Morphine Sulfate 2 mg 05/08/24 16:11 05/10/24 01:07 Morphine Sulfate (*Crx) 2 Mg/Ml Inj IV PUSH 2 mg Q4H PRN Administration Pain Rated 7-10 Ondansetron HCl 4 mg 05/08/24 16:11 Ondansetron Inj 4 Mg/2 Ml Vial IV PUSH Q6H PRN Nausea And Vomiting Pantoprazole Sodium 40 mg 05/09/24 09:00 05/11/24 08:08 Pantoprazole 40 Mg Tablet PO 40 mg Q12HR NINFA Administration Sertraline HCl 50 mg 05/09/24 09:00 05/11/24 08:08 Sertraline Hcl 50 Mg Tablet PO 50 mg DAILY NINFA Administration Radiology Results: ITS Impressions Abdomen/Pelvis CT 05/08/24 14:44 IMPRESSION: 1. Sigmoid diverticulitis with two perisigmoid abscesses. 2. 5.6 x 3.9 cm multiloculated cystic mass in the liver, consistent with abscess. 3. Gallbladder distention, which may be secondary to distention or acute cholecystitis. Wall thickening of the gallbladder adjacent to the liver mass is consistent with inflammation. Catheter Placement CT 05/09/24 14:18 IMPRESSION: 1. Successful CT-guided abscess drainage catheter placement within an anterior midline pelvic intraperitoneal abscess. 15 mL fluid was sent for Gram stain and aerobic and anaerobic cultures. 2. Successful CT-guided abscess drainage catheter placement within a left inguinal extraperitoneal abscess cavity. 10 mL fluid was sent for Gram stain and aerobic and anaerobic cultures. 3. The catheters will be managed by Dr. Sanches. Catheter Placement CT 05/09/24 14:18 IMPRESSION: 1. Successful CT-guided abscess drainage catheter placement within an anterior midline pelvic intraperitoneal abscess. 15 mL fluid was sent for Gram stain and aerobic and anaerobic cultures. 2. Successful CT-guided abscess drainage catheter placement within a left inguinal extraperitoneal abscess cavity. 10 mL fluid was sent for Gram stain and aerobic and anaerobic cultures. 3. The catheters will be managed by Dr. Sanches. Labs Labs: Laboratory Results - last 24 hr 05/11/24 05:14 WBC 13.9 H RBC 3.25 L Hgb 9.2 L Hct 29.5 L MCV 90.8 MCH 28.3 MCHC 31.2 L RDW 14.8 H Plt Count 499 H MPV 9.4 Immature Gran % (Auto) 0.9 H Neut % (Auto) 87.2 H Lymph % (Auto) 4.2 L [place] % (Auto) 5.6 Eos % (Auto) 1.8 Baso % (Auto) 0.3 Lymph # (Auto) 0.59 L [place] # (Auto) 0.8 H Eos # (Auto) 0.3 Baso # (Auto) 0.0 Abs Immat Gran (auto) 0.13 H Absolute Neuts (auto) 12.1 H Absolute Nucleated RBC 0.000 Nucleated RBC % 0.0 Sodium 140 Potassium 3.1 L Chloride 106 Carbon Dioxide 25 Anion Gap 9 BUN 13 Creatinine 0.80 Estim Creat Clear Calc 65 Estimated GFR > 60 Glucose 101 Calcium 8.0 L Magnesium 1.8 Total Bilirubin 0.8 AST 22 ALT 21 Alkaline Phosphatase 84 Total Protein 6.0 L Albumin 2.7 L Quality VTE Prophylaxis VTE prophylaxis: mechanical ordered
--- NOTE | 2024-05-11 09:17 | P.PN_ITS ---
Progress Note: A&P Assessment and Plan (1) Abscess of sigmoid colon due to diverticulitis: Code(s): K57.20 - Diverticulitis of large intestine with perforation and abscess without bleeding Status: Acute Assessment and Plan: Patient is improving with percutaneous drainage of the pelvic abscesses from his perforated diverticulitis. White blood cell count is decreasing. Continue Zosyn for now. He is tolerating full liquids and go go ahead advance him to solid food today. They may be able to be discharged home on oral antibiotics with drains in place in the next few days with follow-up Dr. Sanches in the office next week. Subjective Date/time seen: 05/11/24 09:17 Interval history: Patient without acute changes overnight. Is still having some diarrhea. Only some minor lower abdominal pain with getting up out of bed. No nausea or vomiting. He is tolerating full liquids. [place] [address] [place] [address] today. No fever. Exam GI: Other: Abdomen is soft and nondistended. Minimal tenderness to palpation lower abdomen. Pigtail drains in place with minimal purulent old bloody output. Objective Data Vital Signs Vital Signs: Vital Signs - 24 hr 05/10/24 14:00 05/10/24 21:26 05/10/24 20:00 Temperature 36.4 C L 36.8 C Pulse Rate 67 84 84 Respiratory Rate 14 18 18 Blood Pressure 108/60 131/63 Pulse Oximetry 97 94 94 Oxygen Delivery Room Air 05/11/24 05:34 Temperature 36.4 C Pulse Rate 76 Respiratory Rate 20 Blood Pressure 129/76 Pulse Oximetry 96 Oxygen Delivery Intake/Output Intake/Output: Intake & Output 05/08/24 05/09/24 05/10/24 05/11/24 23:59 23:59 23:59 23:59 Intake Total 1100 2290 928 300 Output Total 15 95 Balance 1100 2275 833 300 Meds/Results Medications: Active Medications Generic Name Dose Route Start Last Admin Trade Name Freq PRN Reason Stop Dose Admin Acetaminophen 650 mg 05/10/24 08:06 05/10/24 20:58 Acetaminophen 325 Mg Tablet PO 650 mg Q6H PRN Administration Mild Pain (1-3) or Fever Donepezil HCl 5 mg 05/09/24 21:00 05/10/24 20:57 Donepezil Hcl 5 Mg Tablet PO 5 mg HS NINFA Administration Piperacillin/Tazobactam/Dextrose 3.375 gm in 50 mls @ 100 mls/hr 05/08/24 23:00 05/11/24 06:01 Zosyn 3.375 Gm/Ns 50 Ml IVPB Infused Q6HR NINFA Infusion Memantine 10 mg 05/09/24 09:00 05/11/24 08:09 Memantine 10 Mg Tablet PO 10 mg BID NINFA Administration Morphine Sulfate 2 mg 05/08/24 16:11 05/10/24 01:07 Morphine Sulfate (*Crx) 2 Mg/Ml Inj IV PUSH 2 mg Q4H PRN Administration Pain Rated 7-10 Ondansetron HCl 4 mg 05/08/24 16:11 Ondansetron Inj 4 Mg/2 Ml Vial IV PUSH Q6H PRN Nausea And Vomiting Pantoprazole Sodium 40 mg 05/09/24 09:00 05/11/24 08:08 Pantoprazole 40 Mg Tablet PO 40 mg Q12HR NINFA Administration Sertraline HCl 50 mg 05/09/24 09:00 05/11/24 08:08 Sertraline Hcl 50 Mg Tablet PO 50 mg DAILY NINFA Administration Radiology Results: ITS Impressions Abdomen/Pelvis CT 05/08/24 14:44 IMPRESSION: 1. Sigmoid diverticulitis with two perisigmoid abscesses. 2. 5.6 x 3.9 cm multiloculated cystic mass in the liver, consistent with abscess. 3. Gallbladder distention, which may be secondary to distention or acute cholecystitis. Wall thickening of the gallbladder adjacent to the liver mass is consistent with inflammation. Catheter Placement CT 05/09/24 14:18 IMPRESSION: 1. Successful CT-guided abscess drainage catheter placement within an anterior midline pelvic intraperitoneal abscess. 15 mL fluid was sent for Gram stain and aerobic and anaerobic cultures. 2. Successful CT-guided abscess drainage catheter placement within a left inguinal extraperitoneal abscess cavity. 10 mL fluid was sent for Gram stain and aerobic and anaerobic cultures. 3. The catheters will be managed by Dr. Sanches. Catheter Placement CT 05/09/24 14:18 IMPRESSION: 1. Successful CT-guided abscess drainage catheter placement within an anterior midline pelvic intraperitoneal abscess. 15 mL fluid was sent for Gram stain and aerobic and anaerobic cultures. 2. Successful CT-guided abscess drainage catheter placement within a left inguinal extraperitoneal abscess cavity. 10 mL fluid was sent for Gram stain and aerobic and anaerobic cultures. 3. The catheters will be managed by Dr. Sanches. Labs Labs: Laboratory Results - last 24 hr 05/11/24 05:14 WBC 13.9 H RBC 3.25 L Hgb 9.2 L Hct 29.5 L MCV 90.8 MCH 28.3 MCHC 31.2 L RDW 14.8 H Plt Count 499 H MPV 9.4 Immature Gran % (Auto) 0.9 H Neut % (Auto) 87.2 H Lymph % (Auto) 4.2 L [place] % (Auto) 5.6 Eos % (Auto) 1.8 Baso % (Auto) 0.3 Lymph # (Auto) 0.59 L [place] # (Auto) 0.8 H Eos # (Auto) 0.3 Baso # (Auto) 0.0 Abs Immat Gran (auto) 0.13 H Absolute Neuts (auto) 12.1 H Absolute Nucleated RBC 0.000 Nucleated RBC % 0.0 Sodium 140 Potassium 3.1 L Chloride 106 Carbon Dioxide 25 Anion Gap 9 BUN 13 Creatinine 0.80 Estim Creat Clear Calc 65 Estimated GFR > 60 Glucose 101 Calcium 8.0 L Magnesium 1.8 Total Bilirubin 0.8 AST 22 ALT 21 Alkaline Phosphatase 84 Total Protein 6.0 L Albumin 2.7 L
[2024-05-11] MEDS: POTASSIUM CHLORIDE 20 MEQ ER TABLET 40 MEQ PO (09:23)
[2024-05-11 10:13] LABS: Iron 16 ug/dL (49-181)
[2024-05-11 10:23] LABS: Percent Iron Saturation 11 % (20-50)
[2024-05-11 10:27] LABS: Folic Acid 12.2 ng/mL (2.76->20)
[2024-05-11 14:00] VITALS: BP 113/61; PULSE 79; RESP 18; TEMP 37; O2SAT 99
[2024-05-11] MEDS: FERROUS SULFATE 325 MG TABLET DR PO (16:20)
[2024-05-11 19:25] VITALS: BP 130/72; PULSE 80; RESP 16; TEMP 37.6; O2SAT 97
[2024-05-11 21:20] VITALS: TEMP 37.3
[2024-05-11] MEDS: DONEPEZIL HCL 5 MG TABLET PO (21:22)
[2024-05-11 22:17] VITALS: TEMP 36.9
[2024-05-12 05:13] LABS: Basophils Percent Auto 0.2 % (0.2-1.2); Eosinophils Absolute Auto 0.3 K/mm3 (0-0.3); Eosinophils Percent Auto 1.9 % (0-4.4); Hematocrit 27.3 % (42.0-52.0); Hemoglobin 8.3 g/dL (14.0-18.0); Immature Granulocyte Absolute 0.22 K/mm3 (0.00-0.031); Immature Granulocyte Percent A 1.6 % (0-0.5); Lymphocytes Absolute Auto 0.74 K/mm3 (0.9-3.2); Lymphocytes Percent Auto 5.3 % (18.3-44.2); Mean Corpuscular HGB Conc 30.4 g/dl (32-36); Mean Corpuscular Hemoglobin 27.8 pg (26-34); Mean Corpuscular Volume 91.3 fl (80-100); Mean Platelet Volume 9.6 fl (7.4-10.4); Monocytes Absolute Auto 0.9 K/mm3 (0.1-0.6); Monocytes Percent Auto 6.7 % (2.6-8.5); Neutrophils Absolute Auto 11.8 K/mm3 (1.3-6.7); Neutrophils Percent Auto 84.3 % (45.5-73.1); Platelet Count Result 506 k/mm3 (150-375); Red Blood Count 2.99 M/mm3 (4.6-6.20)
[2024-05-12 05:31] LABS: Alanine Aminotransferase 25 U/L (6-50); Albumin Level 2.7 g/dL (3.5-5.1); Alkaline Phosphatase 87 U/L (38-126); Anion Gap 7 mmol/L (4-12); Aspartate Amino Transferase 32 U/L (17-59); Bilirubin,Total 0.7 mg/dL (0.2-1.3); Blood Urea Nitrogen 16 mg/dL (9-20); Calcium 7.9 mg/dL (8.4-10.2); Carbon Dioxide 26 mmol/L (22-30); Chloride 105 mmol/L (98-107); Estimated CRCL calculation 53 ml/min; Estimated Glomerular Filt Rate > 60; Glucose 109 mg/dL (65-110); Magnesium 1.8 mg/dL (1.6-2.3); Potassium 3.5 mmol/L (3.4-5.0); Sodium 138 mmol/L (137-145)
[2024-05-12 06:00] VITALS: BP 120/55; PULSE 74; RESP 18; TEMP 36.8; O2SAT 97
[2024-05-12] MEDS: PIPERACILLN/TAZ 3.375GM/NS50ML 3.375 GM/50 ML BAG IVPB ×2 (06:12→11:40)
--- NOTE | 2024-05-12 06:54 | P.PNIM_ITS ---
Progress Note: A&P Assessment and Plan (1) Abscess of sigmoid colon due to diverticulitis: Code(s): K57.20 - Diverticulitis of large intestine with perforation and abscess without bleeding Status: Acute Assessment and Plan: - CT Abdomen/pelvis: 1. Sigmoid diverticulitis with two perisigmoid abscesses. 2. 5.6 x 3.9 cm multiloculated cystic mass in the liver, consistent with abscess. 3. Gallbladder distention, which may be secondary to distention or acute cholecystitis. Wall thickening of the gallbladder adjacent to the liver mass is consistent with inflammation. - Antibiotics: Zosyn 3.375g q6hr started 05/08 - Antiemetics - Analgesics - PPI - Antipyretics - Diet: regular - Blood cultures: NGTD - Abscess culture: preliminary- Strep constellatus and ecoli - Groin culture: preliminary- strep constellatus - Monitor vital signs, I&Os, track stool output, watch for bloody stools, neuro status and patient is a fall risk - Monitor serum electrolytes and CBC - Surgery consulted S/p catheter placement to the anterior midline pelvic intraperitoneal abscess and in a left inguinal extraperitoneal abscess on 05/09. Confirmed with imaging. (2) Liver abscess: Code(s): K75.0 - Abscess of liver Status: Acute Assessment and Plan: - CT Abdomen/pelvis: 1. Sigmoid diverticulitis with two perisigmoid abscesses. 2. 5.6 x 3.9 cm multiloculated cystic mass in the liver, consistent with abscess. 3. Gallbladder distention, which may be secondary to distention or acute cholecystitis. Wall thickening of the gallbladder adjacent to the liver mass is consistent with inflammation. See antibiotic plan above. - Surgery consulted There are multiple small loculations and likely this would only drain a small area of fluid rather than the entire fluid collection. Will continue to follow with IV antibiotics and can repeat imaging eventually to monitor the liver abscess as well. If this becomes a more consolidated fluid collection and the loculations break up, then consider percutaneous drainage (3) Abnormal findings on diagnostic imaging of gallbladder: Code(s): R93.2 - Abnormal findings on diagnostic imaging of liver and biliary tract Status: Acute Assessment and Plan: - CT Abdomen/pelvis: 1. Sigmoid diverticulitis with two perisigmoid abscesses. 2. 5.6 x 3.9 cm multiloculated cystic mass in the liver, consistent with abscess. 3. Gallbladder distention, which may be secondary to distention or acute cholecystitis. Wall thickening of the gallbladder adjacent to the liver mass is consistent with inflammation. - Surgery consulted No complaints of right upper quadrant abdominal pain. Findings likely related to fasting. Continue to monitor. (4) Benign essential hypertension: Code(s): I10 - Essential (primary) hypertension Status: Acute Assessment and Plan: Chronic. - Continue holding amlodipine as blood pressures have been stable. - Monitor and resume when appropriate. (5) Anemia: Code(s): D64.9 - Anemia, unspecified Status: Acute Assessment and Plan: H/H 10.5/33.9 on admission, previously in the 10s on 05/04. - H/H 9.2/29.5 on am labs - No signs of active bleeding, denies bloody urine/stools and no blood seen in the drains - Iron panel: iron 16, TIBC 151, % sat 11 started on iron supplementation - Folate/b12 WNL - monitor Subjective Date/time seen: 05/12/24 06:54 Interval history: 79-year-old male with hypertension, hyperlipidemia, type 2 diabetes mellitus, gastroesophageal reflux disease, and mild dementia who presented to the emergency department for evaluation of abdominal pain. Review of Systems Review of Systems: All systems reviewed & are unremarkable except as noted in HPI and below Exam Narrative: AF HR General: male in no acute respiratory distress who is nontoxic appearing, lying semi recumbent in bed. HEENT: Normocephalic. Atraumatic. Extraocular movement intact. Sclera clear and anicteric. No facial asymmetry. Chest: Lungs are clear to auscultation bilaterally. No wheezes or crackles. CV: Heart was regular rate and rhythm. S1/S2. No murmurs, gallops, or rubs. Abd: Abdomen was soft. Tender. Nondistended. Positive bowel sounds. No organomegaly or masses. Drains in place with minimal discharge. Ext: No clubbing, cyanosis, or edema. 2+ DP pulses bilaterally. Neuro: Patient is alert. Cranial nerves 2-12 are intact. Speech is clear. Objective Data Vital Signs Vital Signs: Vital Signs - 24 hr 05/11/24 14:00 05/11/24 19:25 05/11/24 21:20 Temperature 98.6 F 99.7 F H 99.2 F Pulse Rate 79 80 Respiratory Rate 18 16 Blood Pressure 113/61 130/72 Pulse Oximetry 99 97 05/11/24 22:17 Temperature 98.5 F Pulse Rate Respiratory Rate Blood Pressure Pulse Oximetry Intake/Output Intake/Output: Intake & Output 05/09/24 05/10/24 05/11/24 05/12/24 23:59 23:59 23:59 23:59 Intake Total 2290 928 1100 50 Output Total 15 95 Balance 2275 833 1100 50 Meds/Results Medications: Active Medications Generic Name Dose Route Start Last Admin Trade Name Freq PRN Reason Stop Dose Admin Acetaminophen 650 mg 05/10/24 08:06 05/10/24 20:58 Acetaminophen 325 Mg Tablet PO 650 mg Q6H PRN Administration Mild Pain (1-3) or Fever Donepezil HCl 5 mg 05/09/24 21:00 05/11/24 21:22 Donepezil Hcl 5 Mg Tablet PO 5 mg HS NINFA Administration Ferrous Sulfate 325 mg 05/11/24 17:00 05/11/24 16:20 Ferrous Sulfate [address] PO 325 mg BID NINFA Administration Piperacillin/Tazobactam/Dextrose 3.375 gm in 50 mls @ 100 mls/hr 05/08/24 23:00 05/12/24 06:12 Zosyn 3.375 Gm/Ns 50 Ml IVPB 100 mls/hr Q6HR NINFA Administration Memantine 10 mg 05/09/24 09:00 05/11/24 16:21 Memantine 10 Mg Tablet PO 10 mg BID NINFA Administration Morphine Sulfate 2 mg 05/08/24 16:11 05/10/24 01:07 Morphine Sulfate (*Crx) 2 Mg/Ml Inj IV PUSH 2 mg Q4H PRN Administration Pain Rated 7-10 Ondansetron HCl 4 mg 05/08/24 16:11 Ondansetron Inj 4 Mg/2 Ml Vial IV PUSH Q6H PRN Nausea And Vomiting Pantoprazole Sodium 40 mg 05/09/24 09:00 05/11/24 21:21 Pantoprazole 40 Mg Tablet PO 40 mg Q12HR NINFA Administration Sertraline HCl 50 mg 05/09/24 09:00 05/11/24 08:08 Sertraline Hcl 50 Mg Tablet PO 50 mg DAILY NINFA Administration Radiology Results: ITS Impressions Abdomen/Pelvis CT 05/08/24 14:44 IMPRESSION: 1. Sigmoid diverticulitis with two perisigmoid abscesses. 2. 5.6 x 3.9 cm multiloculated cystic mass in the liver, consistent with abscess. 3. Gallbladder distention, which may be secondary to distention or acute cholecystitis. Wall thickening of the gallbladder adjacent to the liver mass is consistent with inflammation. Catheter Placement CT 05/09/24 14:18 IMPRESSION: 1[address] Success[address] CT-guided abscess drainage catheter placement within an anterior midline pelvic intraperitoneal abscess. 15 mL fluid was sent for Gram stain and aerobic and anaerobic cultures. 2. Successful CT-guided abscess drainage catheter placement within a left inguinal extraperitoneal abscess cavity. 10 mL fluid was sent for Gram stain and aerobic and anaerobic cultures. 3. The catheters will be managed by Dr. Sanches. Catheter Placement CT 05/09/24 14:18 IMPRESSION: 1. Successful CT-guided abscess drainage catheter placement within an anterior midline pelvic intraperitoneal abscess. 15 mL fluid was sent for Gram stain and aerobic and anaerobic cultures. 2. Successful CT-guided abscess drainage catheter placement within a left inguinal extraperitoneal abscess cavity. 10 mL fluid was sent for Gram stain and aerobic and anaerobic cultures. 3. The catheters will be managed by Dr. Sanches. Labs Labs: Laboratory Results - last 24 hr 05/11/24 05/12/24 09:01 04:51 WBC 14.0 H RBC 2.99 L Hgb 8.3 L Hct 27.3 L MCV 91.3 MCH 27.8 MCHC 30.4 L RDW 15.0 H Plt Count 506 H MPV 9.6 Immature Gran % (Auto) 1.6 H Neut % (Auto) 84.3 H Lymph % (Auto) 5.3 L [place] % (Auto) 6.7 Eos % (Auto) 1.9 Baso % (Auto) 0.2 Lymph # (Auto) 0.74 L [place] # (Auto) 0.9 H Eos # (Auto) 0.3 Baso # (Auto) 0.0 Abs Immat Gran (auto) 0.22 H Absolute Neuts (auto) 11.8 H Absolute Nucleated RBC 0.000 Nucleated RBC % 0.0 Sodium 138 Potassium 3.5 Chloride 105 Carbon Dioxide 26 Anion Gap 7 BUN 16 Creatinine 1.00 Estim Creat Clear Calc 53 Estimated GFR > 60 Glucose 109 Calcium 7.9 L Magnesium 1.8 Iron 16 L TIBC 151 L % Saturation 11 L Total Bilirubin 0.7 AST 32 ALT 25 Alkaline Phosphatase 87 Total Protein 6.0 L Albumin 2.7 L Vitamin B12 975.0 H Folate 12.2 Quality VTE Prophylaxis VTE prophylaxis: mechanical ordered
[2024-05-12] MEDS: FERROUS SULFATE 325 MG TABLET DR PO (09:26)
[2024-05-12] MEDS: SERTRALINE HCL 50 MG TABLET PO (09:26)
[2024-05-12] MEDS: MEMANTINE 10 MG TABLET PO (09:26)
[2024-05-12] MEDS: PANTOPRAZOLE 40 MG TABLET PO (09:27)
--- NOTE | 2024-05-12 11:01 | PCNFU ---
Nutrition Follow-Up Complete: Inadequate oral intake related to abdominal pain, loss of appetite as evidenced by 4% weight loss/2 months, report of poor intake at least 6 weeks Goal:Adequate PO intake at least 75% meals and supplements Patient has limited progress towards goal. We will continue current goal. Pt current nutrition is Heart Healthy with Ensure Enlive BID. Last recorded weight is 85.4 kg, up from 82.5 kg on admit Bowel Motility:+BM reported 05/11 Labs Reviewed:Alb 2.7, Hct 27.3, Hgb 8.3 Meds Noted: Zosyn, Protonix Skin: WNL Additional Notes: Diet order has advanced to a heart healthy diet. Intake has been fair: 20, 25, 80% reported. Refused breakfast today. Diet supplements are providing an additional 350 kcal and 20 gm protein. If oral intake does not improve recommend liberalizing diet to regular. Monitoring intakes, weights, labs, diet advancement, plan of care Follow up in 5 days
--- NOTE | 2024-05-12 11:27 | WPDPN ---
Progress Note: A&P Assessment and Plan (1) Abscess of sigmoid colon due to diverticulitis: Code(s): K57.20 - Diverticulitis of large intestine with perforation and abscess without bleeding Status: Acute Assessment and Plan: Patient is doing well. Clinically as abdominal exam is benign. Percutaneous drains are in place in the abdominal abscess cavities controlling output and any infection. His white blood [place] is been stable [place] 13 [place] [address] the past 2 to 3 days. He he can be transitioned to oral antibiotics at home discharge today with follow-up with Dr. Sanches in the office next week. I discussed with his daughter adhesions stay on a low-fiber high-protein diet with the use of protein supplement checks. Nurses can teach patient's family drain care prior to discharge. Subjective Date/time seen: 05/12/24 11:27 Interval history: Patient is doing well today. Tolerating solid food. Abdominal drain output is purulent and feculent but minimal. White blood count is stable at 13 to 14,000. No fever. Abdominal exam is benign. Exam GI: Other: Abdomen is soft and nondistended. Two per drains were placed in the mid abdomen. Insertion sites of the drain are fine. Dressings are dry. Abdominal exam is benign. Objective Data Vital Signs Vital Signs: Vital Signs - 24 hr 05/11/24 14:00 05/11/24 19:25 05/11/24 21:20 Temperature 37.0 C 37.6 C H 37.3 C Pulse Rate 79 80 Respiratory Rate 18 16 Blood Pressure 113/61 130/72 Pulse Oximetry 99 97 05/11/24 22:17 05/12/24 06:00 Temperature 36.9 C 36.8 C Pulse Rate 74 Respiratory Rate 18 Blood Pressure 120/55 L Pulse Oximetry 97 Intake/Output Intake/Output: Intake & Output 05/09/24 05/10/24 05/11/24 05/12/24 23:59 23:59 23:59 23:59 Intake Total 2290 928 1100 100 Output Total 15 95 Balance 2275 833 1100 100 Meds/Results Medications: Active Medications Generic Name Dose Route Start Last Admin Trade Name Freq PRN Reason Stop Dose Admin Acetaminophen 650 mg 05/10/24 08:06 05/10/24 20:58 Acetaminophen 325 Mg Tablet PO 650 mg Q6H PRN Administration Mild Pain (1-3) or Fever Donepezil HCl 5 mg 05/09/24 21:00 05/11/24 21:22 Donepezil Hcl 5 Mg Tablet PO 5 mg HS NINFA Administration Ferrous Sulfate 325 mg 05/11/24 17:00 05/12/24 09:26 Ferrous Sulfate [address] PO 325 mg BID NINFA Administration Piperacillin/Tazobactam/Dextrose 3.375 gm in 50 mls @ 100 mls/hr 05/08/24 23:00 05/12/24 06:42 Zosyn 3.375 Gm/Ns 50 Ml IVPB Infused Q6HR NINFA Infusion Memantine 10 mg 05/09/24 09:00 05/12/24 09:26 Memantine 10 Mg Tablet PO 10 mg BID NINFA Administration Morphine Sulfate 2 mg 05/08/24 16:11 05/10/24 01:07 Morphine Sulfate (*Crx) 2 Mg/Ml Inj IV PUSH 2 mg Q4H PRN Administration Pain Rated 7-10 Ondansetron HCl 4 mg 05/08/24 16:11 Ondansetron Inj 4 Mg/2 Ml Vial IV PUSH Q6H PRN Nausea And Vomiting Pantoprazole Sodium 40 mg 05/09/24 09:00 05/12/24 09:27 Pantoprazole 40 Mg Tablet PO 40 mg Q12HR NINFA Administration Sertraline HCl 50 mg 05/09/24 09:00 05/12/24 09:26 Sertraline Hcl 50 Mg Tablet PO 50 mg DAILY NINFA Administration Radiology Results: ITS Impressions Abdomen/Pelvis CT 05/08/24 14:44 IMPRESSION: 1. Sigmoid diverticulitis with two perisigmoid abscesses. 2. 5.6 x 3.9 cm multiloculated cystic mass in the liver, consistent with abscess. 3. Gallbladder distention, which may be secondary to distention or acute cholecystitis. Wall thickening of the gallbladder adjacent to the liver mass is consistent with inflammation. Catheter Placement CT 05/09/24 14:18 IMPRESSION: 1. Successful CT-guided abscess drainage catheter placement within an anterior midline pelvic intraperitoneal abscess. 15 mL fluid was sent for Gram stain and aerobic and anaerobic cultures. 2. Successful CT-guided abscess drainage catheter placement within a left inguinal extraperitoneal abscess cavity. 10 mL fluid was sent for Gram stain and aerobic and anaerobic cultures. 3. The catheters will be managed by Dr. Wikiera. Catheter Placement CT 05/09/24 14:18 IMPRESSION: 1. Successful CT-guided abscess drainage catheter placement within an anterior midline pelvic intraperitoneal abscess. 15 mL fluid was sent for Gram stain and aerobic and anaerobic cultures. 2. Successful CT-guided abscess drainage catheter placement within a left inguinal extraperitoneal abscess cavity. 10 mL fluid was sent for Gram stain and aerobic and anaerobic cultures. 3. The catheters will be managed by Dr. Sanches. Labs Labs: Laboratory Results - last 24 hr 05/12/24 04:51 WBC 14.0 H RBC 2.99 L Hgb 8.3 L Hct 27.3 L MCV 91.3 MCH 27.8 MCHC 30.4 L RDW 15.0 H Plt Count 506 H MPV 9.6 Immature Gran % (Auto) 1.6 H Neut % (Auto) 84.3 H Lymph % (Auto) 5.3 L [place] % (Auto) 6.7 Eos % (Auto) 1.9 Baso % (Auto) 0.2 Lymph # (Auto) 0.74 L [place] # (Auto) 0.9 H Eos # (Auto) 0.3 Baso # (Auto) 0.0 Abs Immat Gran (auto) 0.22 H Absolute Neuts (auto) 11.8 H Absolute Nucleated RBC 0.000 Nucleated RBC % 0.0 Sodium 138 Potassium 3.5 Chloride 105 Carbon Dioxide 26 Anion Gap 7 BUN 16 Creatinine 1.00 Estim Creat Clear Calc 53 Estimated GFR > 60 Glucose 109 Calcium 7.9 L Magnesium 1.8 Total Bilirubin 0.7 AST 32 ALT 25 Alkaline Phosphatase 87 Total Protein 6.0 L Albumin 2.7 L
--- NOTE | 2024-05-12 13:06 | PM.DS ---
DS: Admitting Diagnosis Discharge Date 05/12/2024 Admitting Diagnosis Abscess of sigmoid colon due to diverticulitis liver abscess abnormal findings on diagnostic imaging gallbladder benign essential hypertension anemia DS: Discharge Diagnosis Discharge Diagnosis (1) Abscess of sigmoid colon due to diverticulitis: Code(s): K57.20 - Diverticulitis of large intestine with perforation and abscess without bleeding Status: Acute (2) Liver abscess: Code(s): K75.0 - Abscess of liver Status: Acute (3) Abnormal findings on diagnostic imaging of gallbladder: Code(s): R93.2 - Abnormal findings on diagnostic imaging of liver and biliary tract Status: Acute (4) Benign essential hypertension: Code(s): I10 - Essential (primary) hypertension Status: Acute (5) Anemia: Code(s): D64.9 - Anemia, unspecified Status: Acute DS: Summary Hospital Course Reason for hospitalization: Abscess of sigmoid colon due to diverticulitis liver abscess abnormal findings on diagnostic imaging gallbladder benign essential hypertension anemia Hospital Course: 79-year-old male with hypertension, hyperlipidemia, type 2 diabetes mellitus, gastroesophageal reflux disease, and mild dementia who presented to the emergency department for evaluation of abdominal pain. Not meeting sepsis criteria on admission. CT abdomen/pelvis obtained and showed sigmoid diverticulitis with two perisigmoid abscesses. Patient started on IV antibiotics and surgery consulted. Patient S/p catheter placement to the anterior midline pelvic intraperitoneal abscess and in a left inguinal extraperitoneal abscess on 05/09. Confirmed with imaging. Cultures obtained and growing strep constellatus, e coli, and bacteroides fragilis. CT was also showing a 5.6 x 3.9 cm multiloculated cystic mass in the liver, consistent with abscess. Per surgery note there were multiple small loculations that were unable to be drained during admission. Treated with antibiotics. CT was also showing gallbladder distention, which may be secondary to distention or acute cholecystitis. Wall thickening of the gallbladder adjacent to the liver mass is consistent with inflammation. However, the patient had no complaints of RUQ pain and was likely related to fasting. Patient transitioned to oral antibiotics at time of discharge per surgery. During admission patient was found to have iron deficiency anemia and started on supplementation. At time of discharge patient had no complaints, denying chest pain, shortness of breath, nausea/vomiting, abdominal pain and was tolerating a diet well. Patient discharged home with family in stable condition. He has a follow-up with surgery as scheduled and his primary care provider in 1 week. Status at Discharge Functional status at discharge: independent ambulation Time Spent with Patient Time attestation: Total time spent providing and/or coordinating discharge services: Time spent: Greater than 30 minutes Exam Narrative: AF HR 74 RR 18 SPO2 97 BP 120/55 General: male in no acute respiratory distress who is nontoxic appearing, lying semi recumbent in bed. HEENT: Normocephalic. Atraumatic. Extraocular movement intact. Sclera clear and anicteric. No facial asymmetry. Chest: Lungs are clear to auscultation bilaterally. No wheezes or crackles. CV: Heart was regular rate and rhythm. S1/S2. No murmurs, gallops, or rubs. Abd: Abdomen was soft. Tender. Nondistended. Positive bowel sounds. No organomegaly or masses. Drains in place with minimal discharge. DS: Data Data Completed and Pending Completed studies during hospitalization: Abdomen/pelvis CT catheter placement CT Labs on day of discharge: Labs from last 24 hours 05/12/24 04:51 WBC 14.0 H RBC 2.99 L Hgb 8.3 L Hct 27.3 L MCV 91.3 MCH 27.8 MCHC 30.4 L RDW 15.0 H Plt Count 506 H MPV 9.6 Immature Gran % (Auto) 1.6 H Neut % (Auto) 84.3 H Lymph % (Auto) 5.3 L [place] % (Auto) 6.7 Eos % (Auto) 1.9 Baso % (Auto) 0.2 Lymph # (Auto) 0.74 L [place] # (Auto) 0.9 H Eos # (Auto) 0.3 Baso # (Auto) 0.0 Abs Immat Gran (auto) 0.22 H Absolute Neuts (auto) 11.8 H Absolute Nucleated RBC 0.000 Nucleated RBC % 0.0 Sodium 138 Potassium 3.5 Chloride 105 Carbon Dioxide 26 Anion Gap 7 BUN 16 Creatinine 1.00 Estim Creat Clear Calc 53 Estimated GFR > 60 Glucose 109 Calcium 7.9 L Magnesium 1.8 Total Bilirubin 0.7 AST 32 ALT 25 Alkaline Phosphatase 87 Total Protein 6.0 L Albumin 2.7 L Preliminary micro results at discharge 05/09/24 12:38 Anaerobic Culture - Preliminary Groin Bacteroides fragilis 05/09/24 12:37 Anaerobic Culture - Preliminary Abscess Bacteroides fragilis 05/08/24 15:28 Blood Culture - Preliminary Blood 05/08/24 15:34 Blood Culture - Preliminary Blood Discharge Plan Discharge Attending physician on discharge: Herminia Purvis Consulting providers: Segundo Sanches; Kathie Batista Discharging Clinician: Kathie Batista Anticipated Discharge Date/Time: 05/12/24 12:58 Patient Disposition: Home, Self-Care Activity: other - see discharge instructions Diet: other - see discharge instructions Wound Care Instructions: other - see discharge instructions Discharge Instructions: Discharge instructions per surgery: Patient may discharge home today. He is to follow-up see Dr. Sanches in the surgery office next week. Patient to call [phone] for an appointment. While the drains are in place patient had a sponge bath. Keep drains pinned up the patient's clothes or carry around the bag. Patient may ambulate with a cane or walker for stability. Patient to have a low-fiber high protein diet patient should also supplement with protein shakes such as Ensure. The oral antibiotics prescriptions have been sent to patient's pharmacy. Augmentin and flagyl, attached is information on these medications Patient also given nocro as needed for pain, attahced is information on this medication Discharge disposition: During your admission your blood pressures were stable despite not being on your amlodipine Monitor blood pressures Hold your amlodipine until you follow up with your primary care provider about resuming this medication If you notice your blood pressures becoming elevated call your primary care provider Take caution while standing, rising, or moving Change positions slowly taking a break between each position change If you standing feel dizzy sat back down and take a break You have been started on iron supplementation for iron deficiency anemia Attached is information on this medication and diagnosis Encouraged to continue with yearly vaccinations Return to the emergency department if he developed sudden shortness of breath, chest pain, nausea, vomiting, upset stomach or intractable diarrhea Return to the emergency department if you develop fever greater than 101.5 Follow-up with the primary care physician within 1-2 weeks Thank you for [facility] for your healthcare needs Patient Instructions: Antibiotic Form, Iron Supplements (By mouth), Hydrocodone/Acetaminophen (By mouth), Metronidazole (By mouth), Amoxicillin/Clavulanate Potassium (By mouth), Diverticulitis (DC), Pain Management (DC), Iron Deficiency Anemia (GEN) Patient Language: [place] Citizen Stand Alone Forms: General Discharge Information Follow-up/Referrals: Cristi Mullen APRN [Primary Care Provider] - 1 Week Segundo Sanches DO [Physician] - (Patient to follow-up see Dr. Sanches in the office next week.) Discharge Medications: New metronidazole 500 mg tablet 500 mg PO Q8H Qty: 30 2RF amoxicillin-pot clavulanate 875-125 mg tablet 1 tablet PO Q12H Qty: 30 1RF hydrocodone-acetaminophen 5-325 mg tablet 1 tablet PO Q4H PRN (Reason: pain) Qty: 25 0RF ferrous sulfate 325 mg (65 mg iron) Tablet,Delayed Release (Dr/Ec) 325 mg PO BID Qty: 60 0RF Continued Excedrin Migraine 250-250-65 mg tablet 1 tablet PO BID Rx Instructions: STATES TAKING EXCEDRIN DAILY IN THE AM sertraline 100 mg tablet 50 mg PO DAILY donepezil 5 mg tablet 5 mg PO HS omeprazole 40 mg capsule,delayed release(DR/EC) 40 mg PO DAILY Qty: 90 1RF memantine 10 mg tablet 10 mg PO BID Qty: 180 1RF Held amlodipine 5 mg tablet 5 mg PO DAILY Qty: 90 1RF Hold Instructions: Resume on 05/19/24. Follow up with PCP. Date of admission: 05/09/24 08:46 Primary Care Provider: Cristi Mullen Admitting Provider: Hardeep Velarde Attending physician on admission: Hardeep Velarde Condition: Stable Hospitalist MIPS Heart Failure (Exclusion) Patient has history of Heart Transplant or Left Ventricular Assistive Device?: No IF YES, STOP HERE Heart Failure (Qualifier) Patient has current or prior documentation of LVEF less than or equal to 40%, or mod/servere depressed LVSF?: No IF NO, STOP HERE
== END 2024-05-12 13:50 | disposition home or self-care (01) | DRG 391 ==
LOC: ANHED 13:53 → ANH2MED 20:18
PROVIDERS: Nurse Practitioner Family; Physician Assistant; Admitting Provider General Practice; Emergency Provider Emergency Medicine; PCP Nurse Practitioner; Visit Provider Student in an Organized Health Care Education/Training Program
DX: K57.20 Diverticulitis of large intestine with perforation and abscess without bleeding (principal); K65.1 Peritoneal abscess; K75.0 Abscess of liver; B96.6 Bacteroides fragilis [B. fragilis] as the cause of diseases classified elsewhere; B95.4 Other streptococcus as the cause of diseases classified elsewhere; B96.20 Unspecified Escherichia coli [E. coli] as the cause of diseases classified elsewhere; D50.9 Iron deficiency anemia, unspecified; E78.5 Hyperlipidemia, unspecified; E87.6 Hypokalemia; F03.A0 Unspecified dementia, mild, without behavioral disturbance, psychotic disturbance, mood disturbance, and anxiety; E11.9 Type 2 diabetes mellitus without complications; I10 Essential (primary) hypertension; K82.8 Other specified diseases of gallbladder; K21.9 Gastro-esophageal reflux disease without esophagitis; M19.90 Unspecified osteoarthritis, unspecified site; N40.0 Benign prostatic hyperplasia without lower urinary tract symptoms; Z79.82 Long term (current) use of aspirin; Z98.41 Cataract extraction status, right eye; Z98.42 Cataract extraction status, left eye; Z85.820 Personal history of malignant melanoma of skin; Z87.891 Personal history of nicotine dependence
CPT/HCPCS: 36415; 74177; 75989; 80048; 80053; 81001; 82607; 82746; 83540; 83550; 83605; 83690; 83735; 85025; 85610; 87040; 87070; 87075; 87076; 87077; 87186; 87205; 96361; 96365; 96366; 96375; 99285; A9270; C1729; C1769; G0378; J2270; J2543; J3475; J3480; J7030; J7040; Q9967

== ENCOUNTER 2024-06-01 12:42 | Inpatient (IN) | payer MEDICARE, OTHER, SELFPAY ==
[2024-06-01] VITALS (24 sets, daily range): BP systolic 101–141; BP diastolic 51–88; PULSE 67–99; RESP 12–21; TEMP 36.4–36.8; O2SAT 95–100; BMI 22.7; BMI 23.1
--- NOTE | ~2024-06-01 | US_ITS ---
EXAMINATION: US venous doppler [facility] DATE: 06/01/2024 20:31 INDICATION: Abdominal pain. TECHNIQUE: Grayscale ultrasound images without and with compression and Doppler ultrasound images of the bilateral lower extremity veins were obtained. COMPARISON: None. FINDINGS: The visualized portions of right common femoral vein, profunda (deep) femoral vein, femoral vein, pop liteal vein, peroneal veins, posterior tibial veins, and greater saphenous vein outflow are patent. The visualized portions of left common femoral vein, profunda femoral vein, femoral vein, popliteal v ein, peroneal veins, posterior tibial veins, and greater saphenous vein outflow are patent. IMPRESSION: 1. No deep venous thrombosis. Reviewed, dictated and finalized at location A. [facility]
--- NOTE | ~2024-06-01 | CT_ITS ---
EXAMINATION: CTA chest PE abdomen pel DATE: 06/01/2024 14:27 INDICATION: Shortness of breath and abdominal pain TECHNIQUE: Computed tomography (CT) pulmonary angiogram of the chest was performed with 100 mL Omnipa que-350 intravenous contrast. Additional 3D reconstructions utilizing coronal maximum intensity proje ction (MIP) were performed. CT of the abdomen and pelvis was performed with intravenous contrast util izing the same contrast bolus following a short delay. Automated exposure control and iterative recon struction technique were employed. The dose-length product was 601.44 mGy-cm. COMPARISON: None FINDINGS: Chest: Pulmonary emboli in the anterior basilar, lateral basilar and posterior basilar segmental pulmonary a rteries of the right lower lobe. There are small posterior layering bilateral pleural effusions, righ t greater than left with mild dependent atelectasis in both lower lobes. Additional with scattered mi ld discoid atelectasis in both lungs. There are couple small calcified nodules consistent with old gr anulomatous disease in the atelectatic basilar right lower lobe. There are several scattered new <4 m m noncalcified nodules in the right lung. Cardiomegaly. There is no leftward bowing of the ventricula r septum to suggest right heart strain. Atherosclerotic coronary artery calcification. No pericardial effusion. Thoracic aorta is normal in caliber with no dissection. No pathologically enlarged thoraci c lymphadenopathy. Chronic mild anterior wedging of a few mid thoracic vertebral bodies with moderate spondylosis and bridging osteophytes at multiple levels consistent with diffuse idiopathic skeletal hyperostosis (DISH). Abdomen/pelvis: Postoperative changes in the epigastric region likely related to prior hiatal hernia repair. There ar e multiple new cystic lesions and several clusters in the inferior right hepatic lobe likely hepatic abscesses. The largest current lesion measures 2.9 x 2.0 cm. There has however also been interval imp rovement in a prior large or cluster of small cystic lesions in segment 6 of the liver. Gallbladder, spleen, pancreas and bilateral adrenal glands are normal. There are bilateral renal cysts the larger on the left measuring 5.8 cm. There are multiple diverticula predominantly along the sigmoid colon wh ere there is a persistent segment with wall thickening and some surrounding inflammatory stranding co nsistent with diverticulitis. Small bowel and appendix are normal. A prior peripherally enhancing abscess cavity posterior to the inferior rectus abdominal small vessel and located along the anterior margin of the segment of prior perforated sigmoid diverticulitis. Thi s cavity has decreased in size, now measuring 7.2 x 4.6 x 2.6 cm and is now filled primarily with gas and a minimal amount of fluid. The gas tracks along the tract of a prior abscess drainage catheter which was placed and removed in the interval since the prior study. There are couple subtle tiny line ar extensions of gas which extend laterally to the right from the gas-filled abscess cavity towards t he anterior uterus contains iliac spine which could be intravenous. The second abscess cavity within the left anterior pelvic wall musculature compressed also with inter baljeet drainage catheter placement and removal. There is an additional slightly deeper 1.3 cm diameter a bscess cavity which extends inferiorly to contact the bladder wall of the normal bladder which appear s mildly thickened which raises concern for a developing if not completed colovesical fistula. Prosta tomegaly. Small fat-containing umbilical hernia. There are postoperative changes with multiple surgic al clips along the anterior pelvic wall in the region of the previously noted abscesses. No other irina e intraperitoneal gas or fluid. No pathologically enlarged abdominal or pelvic lymphadenopathy. Mild lumbar levocurvature with moderate spondylosis. IMPRESSION: 1. Pulmonary emboli in the anterior, lateral and posterior basilar segments of the right lower lobe p ulmonary arteries. No evidence of associated right heart strain. 2. Small bilateral posterior layering pleural effusions with associated dependent atelectasis. 3. Findings consistent with ongoing sigmoid diverticulitis with interval decompression of the left si de of the 2 prior associated abscess cavities of which had interval drainage catheter placement and r emoval. The second abscess cavity is decrease in size but now contains primarily gas with only minima l amount of dependent fluid. There is however suggestion of small amount of intravenous gas extending peripherally from the abscess cavity. 4. Additional 1.2 cm deeper abscess cavity which contacts the dome of the bladder wall which raises c oncern for progression towards colovesical fistula. 5. Several new clusters of small intrahepatic abscesses in the right hepatic lobe but with interval i mprovement near resolution of the prior cluster of abscesses. 6. Small fat-containing right inguinal hernia. 7. A few new small <4 mm nodules in the right lung. If the patient is low risk for lung cancer, no fo llow-up is needed. If the patient is high risk (i.e., history of smoking or asbestos or significant r adiation exposure), optional follow-up chest CT could be considered at 12 months. 8. Cardiomegaly. Reviewed, dictated and finalized at location A. [employer] IMPRESSION: 1. Pulmonary emboli in the anterior, lateral and posterior basilar segments of the right lower lobe pulmonary arteries. No evidence of associated right heart strain. 2. Small bilateral posterior layering pleural effusions with associated depende nt atelectasis. 3. Findings consistent with ongoing sigmoid diverticulitis with interval decomp ression of the left side of the 2 prior associated abscess cavities of which pichardo d interval drainage catheter placement and removal. The second abscess cavity i s decrease in size but now contains primarily gas with only minimal amount of d ependent fluid. There is however suggestion of small amount of intravenous gas extending peripherally from the abscess cavity. 4. Additional 1.2 cm deeper abscess cavity which contacts the dome of the bladd er wall which raises concern for progression towards colovesical fistula. 5. Several new clusters of small intrahepatic abscesses in the right hepatic lo be but with interval improvement near resolution of the prior cluster of absces ses. 6. Small fat-containing right inguinal hernia. 7. A few new small <4 mm nodules in the right lung. If the patient is low risk for lung cancer, no follow-up is needed. If the patient is high risk (i.e., his tory of smoking or asbestos or significant radiation exposure), optional follow -up chest CT could be considered at 12 months. 8. Cardiomegaly.
[2024-06-01 13:43] LABS: Basophils Percent Auto 0.2 % (0.2-1.2); Eosinophils Percent Auto 0.2 % (0-4.4); Hematocrit 29.2 % (42.0-52.0); Immature Granulocyte Absolute 0.09 K/mm3 (0.00-0.031); Immature Granulocyte Percent A 0.7 % (0-0.5); Lymphocytes Absolute Auto 0.53 K/mm3 (0.9-3.2); Lymphocytes Percent Auto 4.2 % (18.3-44.2); Mean Corpuscular HGB Conc 30.8 g/dl (32-36); Mean Corpuscular Hemoglobin 26.7 pg (26-34); Mean Corpuscular Volume 86.6 fl (80-100); Mean Platelet Volume 10.1 fl (7.4-10.4); Monocytes Absolute Auto 0.6 K/mm3 (0.1-0.6); Monocytes Percent Auto 4.4 % (2.6-8.5); Neutrophils Absolute Auto 11.4 K/mm3 (1.3-6.7); Neutrophils Percent Auto 90.3 % (45.5-73.1); Platelet Count Result 458 k/mm3 (150-375); Red Blood Count 3.37 M/mm3 (4.6-6.20); Red Cell Distribution Width 17.4 % (11.5-14.5); White Blood Count 12.7 K/mm3 (4.5-10.0)
[2024-06-01 13:56] LABS: Alanine Aminotransferase 11 U/L (6-50); Albumin Level 3.1 g/dL (3.5-5.1); Alkaline Phosphatase 81 U/L (38-126); Anion Gap 4 mmol/L (4-12); Aspartate Amino Transferase 19 U/L (17-59); Blood Urea Nitrogen 18 mg/dL (9-20); Calcium 8.2 mg/dL (8.4-10.2); Carbon Dioxide 29 mmol/L (22-30); Chloride 105 mmol/L (98-107); Estimated CRCL calculation 64 ml/min; Estimated Glomerular Filt Rate > 60; Glucose 129 mg/dL (65-110); Lipase 55 U/L (23-300); Potassium 2.6 mmol/L (3.4-5.0); Sodium 138 mmol/L (137-145)
[2024-06-01 14:17] LABS: Platelet Estimate Increased (Adequate)
[2024-06-01 14:18] LABS: Anisocytosis 1+; Hypochromasia 1+; Schistocytes None Seen
[2024-06-01] MEDS: KCL 20 MEQ/SW 100 ML 100 ML 50 MEQ IVPB (14:36)
--- NOTE | 2024-06-01 14:47 | PC.NURSE ---
pt attempted to give UA because they are continent, but states they have not had anything to drink today. provider VORB to give NS 0.9% bolus and PO hydration
--- NOTE | 2024-06-01 14:50 | ED.ABDPAIN ---
HPI - Abdominal Pain General Chief Complaint: Abdominal Pain Stated Complaint: abd pain Time Seen by Provider: 06/01/24 13:22 History of Present Illness HPI narrative: 79-year-old male presents emergency department for evaluation for decreased p.o. intake. Patient was diagnosed with diverticulitis and abscess on May 08 and was admitted through May 12. Patient was discharged home with abdominal drains but no IV antibiotics but he was on p.o. antibiotics. Patient did have follow-up with Dr. Sanches on May 22 and had the drains removed. Patient has been having decreased p.o. intake since that time. Patient does report some shortness of breath and some lower abdominal pain. Patient does have history of Alzheimer's dementia Related Data Home Medications ?Medication ?Instructions ?Recorded ?Confirmed ?Last Taken ?Type [id number]-[id number] 250 1 tablet PO BID 04/10/19 05/22/24 Unknown History mg-250 mg-65 mg tablet (Excedrin Migraine) donepezil 5 mg tablet 5 mg PO HS 08/06/23 05/22/24 Unknown History sertraline 100 mg tablet 50 mg PO DAILY 04/26/24 05/22/24 Unknown History Allergies Allergy/AdvReac Type Severity Reaction Status Date / Time venom-wasp Allergy Severe Swelling Verified 06/01/24 13:32 Sulfa (Sulfonamide Allergy Mild Rash Verified 06/01/24 13:32 Antibiotics) Review of Systems Review of Systems: All systems reviewed & are unremarkable except as noted in HPI and below PMFSH Past Medical History Medical History Melanoma Arthritis Mild dementia Benign prostatic hyperplasia Benign essential hypertension Chronic GERD Iron deficiency anemia Surgical History Surgical History History of melanoma excision History of bilateral cataract extraction Status post repair of paraesophageal diaphragmatic hernia History of right inguinal hernia repair History of transurethral resection of prostate Family History Family History Mother Hypertension Family history of coronary artery disease Father Family history of primary malignant neoplasm of liver Social History Social History Social History: Surrogate medical decision maker: Rula Watson, spouse. Code status: Full code. Smoking packs per day: 2 Smoking cigarettes per day: 40.0 Years smoked: 35 Smoking pack-years: 70.00 Smoking status: Former smoker Tobacco type: cigarettes Second hand tobacco smoke exposure: No Smoking end date: 06/14/78 Alcohol intake: current Drinks per week: 3 Substance use: never Substance use type: does not use Do You Feel Safe in your Home?: Yes Lack of Transportation: No Lack of Food: Never True Current Housing: I Have Housing Concerned About Future Housing: No Difficulty Paying Gas/Electric Bills: No Difficulty Paying for Meds: No Currently Unemployed: No Education: Bachelor's Degree Difficulty w/ Childcare or Family Care: No Living arrangements: with family Additional living arrangements comments: Lives with spouse in [place]. 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 Spiritual care concerns: No Exam Narrative: APPEARANCE: Well appearing, no pain, no distress, well-nourished. HEAD: normocephalic, atraumatic. EYES: PERRLA/EOMI, conjunctivae clear. NOSE: Normal no drainage EARS:TMS clear with good light reflex. THROAT: Pharynx clear, no exudate. NECK: Supple. No adenopathy, no masses. RESPIRATORY: Airway patent, respirations nonlabored. Clear to auscultation bilaterally, no rales, rhonchi, wheezing. CARDIOVASCULAR: Regular rate and rhythm without murmurs rubs or gallops. ABDOMINAL: Left lower quadrant tenderness to palpation MUSCULOSKELETAL: Moves all extremities. Strength/ROM intact, No edema, No calf tenderness. NEURO: Alert. Cranial nerves II through XII intact. Good gait. Good coordination SKIN: Warm, dry. Normal Color Course Course Emergency Course: Patient was admitted to the hospitalist with surgery consult Vital Signs Vital signs: Vital Signs Temperature 97.6 F 06/01/24 12:43 Pulse Rate 99 06/01/24 12:43 Respiratory Rate 16 06/01/24 12:43 Blood Pressure 116/69 06/01/24 12:43 Pulse Oximetry 100 06/01/24 12:43 Temperature 97.6 F 06/01/24 12:43 Pulse Rate 74 06/01/24 20:00 Respiratory Rate 19 06/01/24 20:00 Blood Pressure 122/73 06/01/24 20:00 Pulse Oximetry 98 06/01/24 20:00 MDM - Abdominal Pain MDM Narrative Medical decision making narrative: 79-year-old male present to the emergency department for evaluation for increased generalized weakness, shortness of breath and abdominal pain. Patient is afebrile but does have a leukocytosis of 12.7 and hemoglobin of 9.0. Potassium was 2.6 and this was replaced by IV. CT scan did show concern for recurrence the intra-abdominal abscesses associated with the diverticulitis and the intrahepatic abscesses. Surgery was consulted. Patient was started on Zosyn in the emergency department. CTA was also positive for pulmonary embolism. Patient was started on heparin in the emergency department. Case was discussed with hospitalist patient was accepted for admission. Patient and family are updated the results of the workup plan for hospitalization. Patient was well-appearing and stable at time of admission. Differential Diagnosis Differential diagnosis: Likely abdominal pain, acute appendicitis, constipation, diverticulitis, gastroenteritis, pancreatitis and small bowel obstruction Lab Data Attestation: I reviewed the patient's lab results. 06/01/24 13:34 06/01/24 13:33 Labs: Lab Results 06/01/24 06/01/24 06/01/24 Range/Units 13:33 13:34 15:43 WBC 12.7 H (4.5-10.0) K/mm3 RBC 3.37 L (4.6-6.20) M/mm3 Hgb 9.0 L (14.0-18.0) g/dL Hct 29.2 L (42.0-52.0) % MCV 86.6 (80-100) fl MCH 26.7 (26-34) pg MCHC 30.8 L (32-36) g/dl RDW 17.4 H (11.5-14.5) % Plt Count 458 H (150-375) k/mm3 MPV 10.1 (7.4-10.4) fl Immature Gran % (Auto) 0.7 H (0-0.5) % Neut % (Auto) 90.3 H (45.5-73.1) % Lymph % (Auto) 4.2 L (18.3-44.2) % [place] % (Auto) 4.4 (2.6-8.5) % Eos % (Auto) 0.2 (0-4.4) % Baso % (Auto) 0.2 (0.2-1.2) % Lymph # (Auto) 0.53 L (0.9-3.2) K/mm3 [place] # (Auto) 0.6 (0.1-0.6) K/mm3 Eos # (Auto) 0.0 (0-0.3) K/mm3 Baso # (Auto) 0.0 (0.0-0.1) K/mm3 Abs Immat Gran (auto) 0.09 H (0.00-0.031) K/mm3 Absolute Neuts (auto) 11.4 H (1.3-6.7) K/mm3 Absolute Nucleated RBC 0.000 (0.0-0.012) K/mm3 Nucleated RBC % 0.0 (0.0-0.2) % Platelet Estimate Increased (Adequate) Hypochromasia 1+ Anisocytosis 1+ Schistocytes None seen Sodium 138 (137-145) mmol/L Potassium 2.6 L* (3.4-5.0) mmol/L Chloride 105 (98-107) mmol/L Carbon Dioxide 29 (22-30) mmol/L Anion Gap 4 (4-12) mmol/L BUN 18 (9-20) mg/dL Creatinine 0.80 (0.7-1.3) mg/dL Estim Creat Clear Calc 64 ml/min Estimated GFR > 60 (59 - ) Glucose 129 H (65-110) mg/dL Calcium 8.2 L (8.4-10.2) mg/dL Total Bilirubin 1.0 (0.2-1.3) mg/dL AST 19 (17-59) U/L ALT 11 (6-50) U/L Alkaline Phosphatase 81 (38-126) U/L Total Protein 7.0 (6.3-8.2) g/dL Albumin 3.1 L (3.5-5.1) g/dL Lipase 55 (23-300) U/L Urine Color Dark yellow (Yellow) Urine Appearance Clear (Clear) Urine pH 5.5 (5.0-9.0) Ur Specific [place] > 1.045 H (1.001-1.035) Urine Protein 2+ H (Negative) mg/dL Urine Glucose (UA) Negative (Negative) mg/dL Urine Ketones Negative (Negative) mg/dL Ur Blood (Man) Negative (Negative) Urine Nitrate Positive H (Negative) Urine Bilirubin 2+ H (Negative) Urine Urobilinogen 0.2 (<2.0) mg/dL Add Ur Microanalysis Reviewed Leukocyte Esterase Rfl 1+ H (Negative) SHAHEED/UL Urine RBC 0-2 (0-2) /hpf Urine WBC 0-5 (0-3) /hpf Ur Squamous Epith Cells Occasional (Few) /hpf Urine Bacteria None seen /hpf Urine Casts 0-2 Hyaline Casts Present (None) /lpf Urine Mucus Present /lpf Imaging Data Radiologist's impression: ITS Impressions Chest/Abdomen/Pelvis CTA 06/01/24 14:50 IMPRESSION: 1. Pulmonary emboli in the anterior, lateral and posterior basilar segments of the right lower lobe pulmonary arteries. No evidence of associated right heart strain. 2. Small bilateral posterior layering pleural effusions with associated dependent atelectasis. 3. Findings consistent with ongoing sigmoid diverticulitis with interval decompression of the left side of the 2 prior associated abscess cavities of which had interval drainage catheter placement and removal. The second abscess cavity is decrease in size but now contains primarily gas with only minimal amount of dependent fluid. There is however suggestion of small amount of intravenous gas extending peripherally from the abscess cavity. 4. Additional 1.2 cm deeper abscess cavity which contacts the dome of the bladder wall which raises concern for progression towards colovesical fistula. 5. Several new clusters of small intrahepatic abscesses in the right hepatic lobe but with interval improvement near resolution of the prior cluster of abscesses. 6. Small fat-containing right inguinal hernia. 7. A few new small <4 mm nodules in the right lung. If the patient is low risk for lung cancer, no follow-up is needed. If the patient is high risk (i.e., history of smoking or asbestos or significant radiation exposure), optional follow-up chest CT could be considered at 12 months. 8. Cardiomegaly. Venous Doppler Study 06/01/24 20:31 IMPRESSION: 1. No deep venous thrombosis. Critical Care Time Critical Care Time Critical Care Time: Yes Total Critical Care Time: 35 Discharge Plan Discharge Clinical Impression: Pulmonary embolism, Abdominal abscess Patient Disposition: Still a Patient Condition: Serious
[2024-06-01] MEDS: SODIUM CHLORIDE 0.9% IV 1,000 ML 999 ML IV CONT (14:52)
[2024-06-01 16:25] LABS: Add Urine Microscopic? YES; Appearance Urine Clear (Clear); Bacteria Urine None Seen /hpf; Bilirubin Urine 2+ (Negative); Blood Urine Negative (Negative); Color Urine Dark Yellow (Yellow); Glucose Urine UA Negative (Negative); Hyaline Casts Urine Present /lpf; Ketones Urine Negative (Negative); Leukocyte Esterase Ur 1+ LEU/UL (Negative); Mucus Urine Present /lpf; Need Manual Microscopic Reviewed; Nitrate Urine Positive (Negative); Non Pathogenic Casts 0-2; Protein Urine 2+ mg/dL (Negative); RBC Urine 0-2 /hpf (0-2); Specific Grav Ur > 1.045 (1.001-1.035); Squamous Epithelial Cell Urine Occasional /hpf (Few); Urobilinogen Urine 0.2 mg/dL (<2.0); WBC Urine 0-5 /hpf (0-3); pH Urine 5.5 (5.0-9.0)
--- NOTE | 2024-06-01 17:23 | P.CONGS_ITS ---
Assessment and Plan Assessment and plan (1) Pulmonary embolism on right: Code(s): I26.99 - Other pulmonary embolism without acute cor pulmonale Status: Acute Assessment and Plan: Believe this is the patient's main problem and hopefully the reason for his poor appetite and sleepiness. He is to be admitted and started on anticoagulation. He did have at least 1 episode where his daughter heard him complain of shortness of breath. (2) Abscess of sigmoid colon due to diverticulitis: Code(s): K57.20 - Diverticulitis of large intestine with perforation and abscess without bleeding Status: Chronic Assessment and Plan: Left lower quadrant anterior abscess is gone, midline lower abdominal anterior abscess is much smaller and contains no fluid only air. The residual inflammation is creating a palpable mass just below the umbilicus in the midline but this is not tender. I do not feel that diverticulitis has recurred but probably would be best to go ahead and treat him with IV antibiotics as some low-grade residual inflammation may still be present in the sigmoid colon. Does not appear at this time that he needs any further drainage procedures. I would be okay with starting him on liquids as well. Follow with exam, labs and vital signs. (3) Liver abscess: Code(s): K75.0 - Abscess of liver Status: Chronic Assessment and Plan: Seems to have some new areas in the more lateral right lobe of the liver that are probably smaller abscesses. None of these appear to be drainable either. I suspect this area was seated back in April when he presented and have developed since then. This is probably a better reason to have him on antibiotics than the diverticulitis. Patient does not have fever and his white blood cell count is actually lower than it was on discharge. Zosyn is most likely more empiric treatment than symptomatic treatment. (4) Hypokalemia: Code(s): E87.6 - Hypokalemia Status: Acute Assessment and Plan: Being replaced (5) Dementia: Qualifiers: Dementia type: unspecified type Dementia severity: unspecified severity Dementia behavioral or psychological symptom: unspecified whether behavioral, psychotic, or mood disturbance or anxiety Qualified Code(s): F03.90 - Unspecified dementia, unspecified severity, without behavioral disturbance, psychotic disturbance, mood disturbance, and anxiety Code(s): F03.90 - Unspecified dementia, unspecified severity, without behavioral disturbance, psychotic disturbance, mood disturbance, and anxiety Status: Chronic Assessment and Plan: Lives at home with his . Has good family support. History of Present Illness Consult details Consult date: 06/01/24 Reason for consult: other (Not eating, chronic fatigue) Requesting physician: Miguel Napier MD Narrative: Patient is an 79-year-old gentleman with dementia who was admitted about 3 weeks ago with diverticulitis and abdominal abscesses as well as right lobe liver abscesses. He was treated with IV antibiotics and drains were placed in the lower abdominal midline abscess as well as the left lower quadrant abscess. Both of these abscesses were anterior. The liver abscess was in the right lobe just lateral to the gallbladder and was multiloculated. It was felt to not be amenable to percutaneous drainage due to the loculations present. Patient improved and was able to be discharged after a 4 day hospitalization on 10 days of metronidazole and 15 days of Augmentin. He went home with his pigtail catheter drains and these were managed in the office by Dr. Sanches. Both drains were removed on 05/22, 10 days after discharge. Patient came back to the emergency room today as the family noticed that he has not been eating and wants to sleep all the time. He has not had any fever, vomiting, diarrhea. With the dementia, patient rarely if ever complains of pain. His daughter did say that 1 time he complained of being short of breath. Patient's and daughter were present during my evaluation. The sleepiness and poor appetite have reportedly been present ever since discharge on 05/12/2024. In the emergency room, the patient was [place] a [place] [address]. This is actually lower than his white blood cell count on 05/12/2020 for which was at that time 14,000. His potassium is quite low at 2.6 but his creatinine and liver enzymes are normal. Patient had a CTA of the chest abdomen and pelvis. This showed right lower lobe pulmonary embolism. It also showed that the abscess is drained previously were much smaller. The left lower quadrant abscess was really decompressed completely. The midline abscess is much smaller and does not contain fluid, only air. The liver abscess which was in the lateral aspect of the right lobe adjacent to the gallbladder on 05/08/2024, is nearly gone but there are some other, more lateral, fluid pockets suggestive of other abscesses. There was still some inflammation in the area of the sigmoid colon and this was read as some persistent ongoing diverticulitis. Patient is now being admitted to the hospitalist and I am seeing him in consultation. Patient denies having any pain or difficulty at the present time. He denies being short of breath. History from his daughter and is as above. Review of Systems 2 Review of Systems: All systems reviewed & are unremarkable except as noted in HPI and below (See HPI) ROS unobtainable: Yes unobtainable due to mental status PMFSH Past Medical History Medical History Melanoma Arthritis Mild dementia Benign prostatic hyperplasia Benign essential hypertension Chronic GERD Iron deficiency anemia Surgical History Surgical History History of melanoma excision History of bilateral cataract extraction Status post repair of paraesophageal diaphragmatic hernia History of right inguinal hernia repair History of transurethral resection of prostate Family History Family History Mother Hypertension Family history of coronary artery disease Father Family history of primary malignant neoplasm of liver Social History Social History Social History: Surrogate medical decision maker: Rula Watson, spouse. Code status: Full code. Smoking packs per day: 2 Smoking cigarettes per day: 40.0 Years smoked: 35 Smoking pack-years: 70.00 Smoking status: Former smoker Tobacco type: cigarettes Second hand tobacco smoke exposure: No Smoking end date: 06/14/78 Alcohol intake: current Drinks per week: 3 Substance use: never Substance use type: does not use Do You Feel Safe in your Home?: Yes Lack of Transportation: No Lack of Food: Never True Current Housing: I Have Housing Concerned About Future Housing: No Difficulty Paying Gas/Electric Bills: No Difficulty Paying for Meds: No Currently Unemployed: No Education: Bachelor's Degree Difficulty w/ Childcare or Family Care: No Living arrangements: with family Additional living arrangements comments: Lives with spouse in [place]. 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 Spiritual care concerns: No Meds Home Medications and Allergies Home Medications ?Medication ?Instructions ?Recorded ?Confirmed ?Type jzxqfhk-vablvlfjgejjp-lsvmsybq 250 1 tablet PO BID 04/10/19 05/22/24 History mg-250 mg-65 mg tablet (Excedrin Migraine) donepezil 5 mg tablet 5 mg PO HS 08/06/23 05/22/24 History amlodipine 5 mg tablet 5 mg PO DAILY #90 tabs 01/18/24 05/22/24 Rx omeprazole 40 mg capsule,delayed 40 mg PO DAILY #90 caps 04/06/24 05/22/24 Rx release memantine 10 mg tablet 10 mg PO BID #180 tabs 04/17/24 05/22/24 Rx sertraline 100 mg tablet 50 mg PO DAILY 04/26/24 05/22/24 History amoxicillin 875 mg-potassium 1 tablet PO Q12H #30 tabs 05/12/24 05/22/24 Rx clavulanate 125 mg tablet ferrous sulfate 325 mg (65 mg 325 mg PO BID #60 tabs 05/12/24 05/22/24 Rx iron) tablet,delayed release hydrocodone 5 mg-acetaminophen 325 1 tablet PO Q4H PRN pain #25 tabs 05/12/24 05/22/24 Rx mg tablet metronidazole 500 mg tablet 500 mg PO Q8H #30 tabs 05/12/24 05/22/24 Rx Allergies Allergy/AdvReac Type Severity Reaction Status Date / Time venom-wasp Allergy Severe Swelling Verified 06/01/24 13:32 Sulfa (Sulfonamide Allergy Mild Rash Verified 06/01/24 13:32 Antibiotics) Vital Signs Vital Signs - 24 hr 06/01/24 12:43 06/01/24 14:00 06/01/24 15:15 Temperature 36.4 C Pulse Rate 99 67 77 Respiratory Rate 16 14 14 Blood Pressure 116/69 101/51 L Pulse Oximetry 100 99 99 06/01/24 15:46 Temperature Pulse Rate 75 Respiratory Rate 19 Blood Pressure 121/88 Pulse Oximetry 99 Exam 2 Const: General: cooperative, comfortable, no acute distress, alert, awake, well groomed and thin Nutritional Appearance: thin HENMT: Head: normocephalic and atraumatic Mouth: Yes Normal oral and palatal mucosa present Eyes: Eyelids: eyelids normal Conjunctivae: conjunctivae normal Sclera: sclerae normal EOM: EOMs intact bilaterally Neck: Neck: normal visual inspection, no lymphadenopathy and nontender Resp: Effort & Inspection: normal respiratory effort Auscultation: clear to auscultation bilaterally Cardio: Rate: regular rate Rhythm: regular rhythm Heart sounds: no gallops, no murmurs and no rubs GI: Inspection: normal to inspection, non-distended, incision (Drain sites healing well), scaphoid and no visible herniation GI Palp: Yes Soft to palpation, No Tenderness to palpation present (GI), No Guarding due to palpation present (GI), No Hepatomegaly present, No Splenomegaly present and Yes Palpable mass present (Lower abdominal midline mass or fullness directly under the drain sites) Auscultation: normal bowel sounds Skin: Lesions: no lesions Rashes: no rashes Neuro: General: no focal motor deficits and CN's II-XI intact bilaterally C ranial nerves: Yes Equal, round and reactive pupils present, Yes Bilaterally intact EOM present, Yes facial symmetry and Yes Midline tongue present S peech: normal speech Motor exam (neuro): 5/5 motor strength present throughout and Motor abnormalities not present Extrem: General: no clubbing, cyanosis or edema and edema Psych: Appearance: well kempt Speech and movement: Clear speech present Affect: Animated affect present Attitude: cooperative Insight: Limited insight present (Psych) Results Labs 06/01/24 13:34 06/01/24 13:33 Labs: Abnormal lab results 06/01/24 06/01/24 06/01/24 Range/Units 13:33 13:34 15:43 WBC 12.7 H (4.5-10.0) K/mm3 RBC 3.37 L (4.6-6.20) M/mm3 Hgb 9.0 L (14.0-18.0) g/dL Hct 29.2 L (42.0-52.0) % MCHC 30.8 L (32-36) g/dl RDW 17.4 H (11.5-14.5) % Plt Count 458 H (150-375) k/mm3 Immature Gran % (Auto) 0.7 H (0-0.5) % Neut % (Auto) 90.3 H (45.5-73.1) % Lymph % (Auto) 4.2 L (18.3-44.2) % Lymph # (Auto) 0.53 L (0.9-3.2) K/mm3 Abs Immat Gran (auto) 0.09 H (0.00-0.031) K/mm3 Absolute Neuts (auto) 11.4 H (1.3-6.7) K/mm3 Potassium 2.6 L* (3.4-5.0) mmol/L Glucose 129 H (65-110) mg/dL Calcium 8.2 L (8.4-10.2) mg/dL Albumin 3.1 L (3.5-5.1) g/dL Ur Specific [place] > 1.045 H (1.001-1.035) Urine Protein 2+ H (Negative) mg/dL Urine Nitrate Positive H (Negative) Urine Bilirubin 2+ H (Negative) Leukocyte Esterase Rfl 1+ H (Negative) SHAHEED/UL Diabetes panel 06/01/24 Range/Units 13:33 Sodium 138 (137-145) mmol/L Potassium 2.6 L* (3.4-5.0) mmol/L Chloride 105 (98-107) mmol/L Carbon Dioxide 29 (22-30) mmol/L BUN 18 (9-20) mg/dL Creatinine 0.80 (0.7-1.3) mg/dL Glucose 129 H (65-110) mg/dL Calcium 8.2 L (8.4-10.2) mg/dL AST 19 (17-59) U/L ALT 11 (6-50) U/L Alkaline Phosphatase 81 (38-126) U/L Total Protein 7.0 (6.3-8.2) g/dL Albumin 3.1 L (3.5-5.1) g/dL Calcium panel 06/01/24 Range/Units 13:33 Calcium 8.2 L (8.4-10.2) mg/dL Albumin 3.1 L (3.5-5.1) g/dL Pituitary panel 06/01/24 Range/Units 13:33 Sodium 138 (137-145) mmol/L Potassium 2.6 L* (3.4-5.0) mmol/L Chloride 105 (98-107) mmol/L Carbon Dioxide 29 (22-30) mmol/L BUN 18 (9-20) mg/dL Creatinine 0.80 (0.7-1.3) mg/dL Glucose 129 H (65-110) mg/dL Calcium 8.2 L (8.4-10.2) mg/dL Adrenal panel 06/01/24 Range/Units 13:33 Sodium 138 (137-145) mmol/L Potassium 2.6 L* (3.4-5.0) mmol/L Chloride 105 (98-107) mmol/L Carbon Dioxide 29 (22-30) mmol/L BUN 18 (9-20) mg/dL Creatinine 0.80 (0.7-1.3) mg/dL Glucose 129 H (65-110) mg/dL Calcium 8.2 L (8.4-10.2) mg/dL Total Bilirubin 1.0 (0.2-1.3) mg/dL AST 19 (17-59) U/L ALT 11 (6-50) U/L Alkaline Phosphatase 81 (38-126) U/L Total Protein 7.0 (6.3-8.2) g/dL Albumin 3.1 L (3.5-5.1) g/dL All other labs normal. Imaging Abdomen CT scan report/results: report reviewed and image reviewed (See HPI) CT scan - chest: report reviewed CT scan - pelvis: report reviewed and image reviewed
--- NOTE | 2024-06-01 17:27 | PM.IMHP ---
H&P: HPI History of Present Illness Date/Time: 06/01/24 17:27 Chief Complaint: Abdominal Pain Narrative: 79-year-old male presents emergency department for evaluation for decreased p.o. intake. Patient was diagnosed with diverticulitis and abscess on May 08 and was admitted through May 12. Patient was discharged home with abdominal drains but no IV antibiotics but he was on p.o. antibiotics. Patient did have follow-up with Dr. Myron Raymond on May 22 and had the drains removed. Patient has been having decreased p.o. intake since that time. Patient does report some shortness of breath and some lower abdominal pain. ED Labs :WBC 12.7, hemoglobin 9, platelet 458, sodium 138, potassium 2.6, glucose 129. UA nitrite positive, leukocyte esterase positive CT ABd/Pelvis: IMPRESSION: 1. Pulmonary emboli in the anterior, lateral and posterior basilar segments of the right lower lobe pulmonary arteries. No evidence of associated right heart strain. 2. Small bilateral posterior layering pleural effusions with associated dependent atelectasis. 3. Findings consistent with ongoing sigmoid diverticulitis with interval decompression of the left side of the 2 prior associated abscess cavities of which had interval drainage catheter placement and removal. The second abscess cavity is decrease in size but now contains primarily gas with only minimal amount of dependent fluid. There is however suggestion of small amount of intravenous gas extending peripherally from the abscess cavity. 4. Additional 1.2 cm deeper abscess cavity which contacts the dome of the bladder wall which raises concern for progression towards colovesical fistula. 5. Several new clusters of small intrahepatic abscesses in the right hepatic lobe but with interval improvement near resolution of the prior cluster of abscesses. 6. Small fat-containing right inguinal hernia. 7. A few new small <4 mm nodules in the right lung. If the patient is low risk for lung cancer, no follow-up is needed. If the patient is high risk (i.e., history of smoking or asbestos or significant radiation exposure), optional follow-up chest CT could be considered at 12 months. 8. Cardiomegaly. patient is started on Zosyn and heparin drip. Even the CTA does not show no no evidence of heart strain will order echocardiogram and will monitor for active bleeding. Ordered lower extremity ultrasound to rule out DVT. Tomorrow if not evidence of DVT patient can be transfer from Eliquis to oral anticoagulant. Surgery already evaluated the patient, advised medical management PMF Past Medical History Medical History Melanoma Arthritis Mild dementia Benign prostatic hyperplasia Benign essential hypertension Chronic GERD Iron deficiency anemia Surgical History Surgical History History of melanoma excision History of bilateral cataract extraction Status post repair of paraesophageal diaphragmatic hernia History of right inguinal hernia repair History of transurethral resection of prostate Family History Family History Mother Hypertension Family history of coronary artery disease Father Family history of primary malignant neoplasm of liver Social History Social History Social History: Surrogate medical decision maker: Rula Watson, spouse. Code status: Full code. Smoking packs per day: 2 Smoking cigarettes per day: 40.0 Years smoked: 35 Smoking pack-years: 70.00 Smoking status: Former smoker Tobacco type: cigarettes Second hand tobacco smoke exposure: No Smoking end date: 06/14/78 Alcohol intake: current Drinks per week: 3 Substance use: never Substance use type: does not use Do You Feel Safe in your Home?: Yes Lack of Transportation: No Lack of Food: Never True Current Housing: I Have Housing Concerned About Future Housing: No Difficulty Paying Gas/Electric Bills: No Difficulty Paying for Meds: No Currently Unemployed: No Education: Bachelor's Degree Difficulty w/ Childcare or Family Care: No Living arrangements: with family Additional living arrangements comments: Lives with spouse in [place]. 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 Spiritual care concerns: No Meds Home Medications and Allergies Home Medications ?Medication ?Instructions ?Recorded ?Confirmed ?Type [id number]-bkhvdgqs 250 1 tablet PO BID 04/10/19 05/22/24 History mg-250 mg-65 mg tablet (Excedrin Migraine) donepezil 5 mg tablet 5 mg PO HS 08/06/23 05/22/24 History amlodipine 5 mg tablet 5 mg PO DAILY #90 tabs 01/18/24 05/22/24 Rx omeprazole 40 mg capsule,delayed 40 mg PO DAILY #90 caps 04/06/24 05/22/24 Rx release memantine 10 mg tablet 10 mg PO BID #180 tabs 04/17/24 05/22/24 Rx sertraline 100 mg tablet 50 mg PO DAILY 04/26/24 05/22/24 History amoxicillin 875 mg-potassium 1 tablet PO Q12H #30 tabs 05/12/24 05/22/24 Rx clavulanate 125 mg tablet ferrous sulfate 325 mg (65 mg 325 mg PO BID #60 tabs 05/12/24 05/22/24 Rx iron) tablet,delayed release hydrocodone 5 mg-acetaminophen 325 1 tablet PO Q4H PRN pain #25 tabs 05/12/24 05/22/24 Rx mg tablet metronidazole 500 mg tablet 500 mg PO Q8H #30 tabs 05/12/24 05/22/24 Rx Allergies Allergy/AdvReac Type Severity Reaction Status Date / Time venom-wasp Allergy Severe Swelling Verified 06/01/24 13:32 Sulfa (Sulfonamide Allergy Mild Rash Verified 06/01/24 13:32 Antibiotics) Vital Signs Vital Signs - 24 hr 06/01/24 12:43 06/01/24 14:00 06/01/24 15:15 Temperature 97.6 F Pulse Rate 99 67 77 Respiratory Rate 16 14 14 Blood Pressure 116/69 101/51 L Pulse Oximetry 100 99 99 06/01/24 15:46 Temperature Pulse Rate 75 Respiratory Rate 19 Blood Pressure 121/88 Pulse Oximetry 99 H&P: Results Labs Labs: Short CBC 06/01/24 Range/Units 13:34 WBC 12.7 H (4.5-10.0) K/mm3 Hgb 9.0 L (14.0-18.0) g/dL Hct 29.2 L (42.0-52.0) % Plt Count 458 H (150-375) k/mm3 BMP 06/01/24 13:33 Sodium 138 Potassium 2.6 L* Chloride 105 Carbon Dioxide 29 BUN 18 Creatinine 0.80 Glucose 129 H Calcium 8.2 L Liver Function 06/01/24 Range/Units 13:33 Total Bilirubin 1.0 (0.2-1.3) mg/dL AST 19 (17-59) U/L ALT 11 (6-50) U/L Alkaline Phosphatase 81 (38-126) U/L Albumin 3.1 L (3.5-5.1) g/dL Urine 06/01/24 Range/Units 15:43 Urine Color Dark yellow (Yellow) Urine Appearance Clear (Clear) Urine pH 5.5 (5.0-9.0) Ur Specific [place] > 1.045 H (1.001-1.035) Urine Protein 2+ H (Negative) mg/dL Urine Glucose (UA) Negative (Negative) mg/dL Assessment and Plan Assessment and plan (1) Pulmonary embolism on right: Code(s): I26.99 - Other pulmonary embolism without acute cor pulmonale Status: Acute (2) Diabetes mellitus: Code(s): E11.9 - Type 2 diabetes mellitus without complications Status: Acute (3) Hypokalemia: Code(s): E87.6 - Hypokalemia Status: Acute (4) Liver abscess: Code(s): K75.0 - Abscess of liver Status: Chronic Hospitalist MIPS Advance Care Plan I have confirmed that the patient's Advanced Care Plan is present, code status is documented, or surrogate decision maker is listed in patient medical record.: Yes Medication Reconciliation I have utilized all available resources to obtain, update and review the patients current medications (includes all prescriptions, OTC, herbals, cannabis, and nutritional supplements).: Yes
[2024-06-01] MEDS: HEPARIN SODIUM 5,000 UNITS/ML VIAL 6000 UNITS IV PUSH (18:17)
[2024-06-01] MEDS: PIPERACILLN/TAZ 3.375GM/NS50ML 3.375 GM/50 ML BAG IVPB ×2 (18:17→23:30)
[2024-06-01] MEDS: HEPARIN SOD/D5W 100 UNITS/ML 25,000 UNITS/250 ML BAG 13 UNITS IV CONT (18:17)
--- NOTE | 2024-06-01 22:04 | P.HP_ITS ---
H&P: HPI History of Present Illness Date/Time: 06/01/24 22:04 Chief Complaint: Abdominal Pain Narrative: 79-year-old male with hypertension, hyperlipidemia, type 2 diabetes mellitus, gastroesophageal reflux disease, and mild dementia who presented to the emergency department for evaluation of low appetite. Patient was recently in the hospital and was treated for liver abscess and Diverticulitis of large intes sahra with perforation and abscess without bleeding. Patient was discharged with 2 drains and both was removed by as OP. Patient was evaluated at ED and he was able to provide a complete history. During his evaluation the patient the and daughter was present at the bedside. Both of them reports that he started eating very little. Patient reports he does not have that much appetite. Patient denies any abdominal pain or constipation. Pertinent labs in the ED: WBC 12.7, hemoglobin 9, platelet 458, sodium 138, potassium 2.6, glucose 129. UA nitrite positive, leukocyte esterase positive CT ABd/Pelvis: IMPRESSION: 1. Pulmonary emboli in the anterior, lateral and posterior basilar segments of the right lower lobe pulmonary arteries. No evidence of associated right heart strain. 2. Small bilateral posterior layering pleural effusions with associated dependent atelectasis. 3. Findings consistent with ongoing sigmoid diverticulitis with interval decompression of the left side of the 2 prior associated abscess cavities of which had interval drainage catheter placement and removal. The second abscess cavity is decrease in size but now contains primarily gas with only minimal amount of dependent fluid. There is however suggestion of small amount of intravenous gas extending peripherally from the abscess cavity. 4. Additional 1.2 cm deeper abscess cavity which contacts the dome of the bladder wall which raises concern for progression towards colovesical fistula. 5. Several new clusters of small intrahepatic abscesses in the right hepatic lobe but with interval improvement near resolution of the prior cluster of abscesses. 6. Small fat-containing right inguinal hernia. 7. A few new small <4 mm nodules in the right lung. If the patient is low risk for lung cancer, no follow-up is needed. If the patient is high risk (i.e., history of smoking or asbestos or significant radiation exposure), optional follow-up chest CT could be considered at 12 months. 8. Cardiomegaly. Patient is started on Zosyn and heparin drip. Even the CTA does not show no no evidence of heart strain will order echocardiogram and will monitor for active bleeding. Ordered lower extremity ultrasound to rule out DVT. Tomorrow if no evidence of DVT patient can be transitioned from Heparin drip to oral anticoagulant. Surgery already evaluated the patient, advised medical management. Review of Systems Review of Systems: All systems reviewed & are unremarkable except as noted in HPI and below (See HPI) ROS unobtainable: Yes unobtainable due to mental status PMFSH Past Medical History Medical History Melanoma Arthritis Mild dementia Benign prostatic hyperplasia Benign essential hypertension Chronic GERD Iron deficiency anemia Surgical History Surgical History History of melanoma excision History of bilateral cataract extraction Status post repair of paraesophageal diaphragmatic hernia History of right inguinal hernia repair History of transurethral resection of prostate Family History Family History Mother Hypertension Family history of coronary artery disease Father Family history of primary malignant neoplasm of liver Social History Social History Social History: Surrogate medical decision maker: Rula Watson, spouse. Code status: Full code. Smoking packs per day: 2 Smoking cigarettes per day: 40.0 Years smoked: 35 Smoking pack-years: 70.00 Smoking status: Former smoker Tobacco type: cigarettes Second hand tobacco smoke exposure: No Smoking end date: 06/14/78 Alcohol intake: current Drinks per week: 3 Substance use: never Substance use type: does not use Do You Feel Safe in your Home?: Yes Lack of Transportation: No Lack of Food: Never True Current Housing: I Have Housing Concerned About Future Housing: No Difficulty Paying Gas/Electric Bills: No Difficulty Paying for Meds: No Currently Unemployed: No Education: Bachelor's Degree Difficulty w/ Childcare or Family Care: No Living arrangements: with family Additional living arrangements comments: Lives with spouse in [place]. 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 Spiritual care concerns: No Meds Home Medications and Allergies Home Medications ?Medication ?Instructions ?Recorded ?Confirmed ?Type ivbilfr-gqrndqzuofxhn-xmarmool 250 1 tablet PO BID 04/10/19 05/22/24 History mg-250 mg-65 mg tablet (Excedrin Migraine) donepezil 5 mg tablet 5 mg PO HS 08/06/23 05/22/24 History amlodipine 5 mg tablet 5 mg PO DAILY #90 tabs 01/18/24 05/22/24 Rx omeprazole 40 mg capsule,delayed 40 mg PO DAILY #90 caps 04/06/24 05/22/24 Rx release memantine 10 mg tablet 10 mg PO BID #180 tabs 04/17/24 05/22/24 Rx sertraline 100 mg tablet 50 mg PO DAILY 04/26/24 05/22/24 History amoxicillin 875 mg-potassium 1 tablet PO Q12H #30 tabs 05/12/24 05/22/24 Rx clavulanate 125 mg tablet ferrous sulfate 325 mg (65 mg 325 mg PO BID #60 tabs 05/12/24 05/22/24 Rx iron) tablet,delayed release hydrocodone 5 mg-acetaminophen 325 1 tablet PO Q4H PRN pain #25 tabs 05/12/24 05/22/24 Rx mg tablet metronidazole 500 mg tablet 500 mg PO Q8H #30 tabs 05/12/24 05/22/24 Rx Allergies Allergy/AdvReac Type Severity Reaction Status Date / Time venom-wasp Allergy Severe Swelling Verified 06/01/24 13:32 Sulfa (Sulfonamide Allergy Mild Rash Verified 06/01/24 13:32 Antibiotics) Vital Signs Vital Signs - 24 hr 06/01/24 12:43 06/01/24 14:00 06/01/24 15:15 Temperature 97.6 F Pulse Rate 99 67 77 Respiratory Rate 16 14 14 Blood Pressure 116/69 101/51 L Pulse Oximetry 100 99 99 06/01/24 15:46 06/01/24 16:01 06/01/24 16:30 Temperature Pulse Rate 75 77 Respiratory Rate 19 19 19 Blood Pressure 121/88 116/77 110/77 Pulse Oximetry 99 98 96 06/01/24 16:50 06/01/24 17:27 06/01/24 17:30 Temperature Pulse Rate 80 73 75 Respiratory Rate 18 16 20 Blood Pressure Pulse Oximetry 96 98 98 06/01/24 17:45 06/01/24 18:00 06/01/24 18:19 Temperature Pulse Rate 72 77 Respiratory Rate 14 12 Blood Pressure Pulse Oximetry 97 98 97 06/01/24 18:21 06/01/24 18:30 06/01/24 18:31 Temperature Pulse Rate 78 71 76 Respiratory Rate 19 21 H 14 Blood Pressure 126/72 114/66 Pulse Oximetry 99 97 97 06/01/24 18:56 06/01/24 19:01 06/01/24 19:15 Temperature Pulse Rate 72 79 Respiratory Rate 20 15 18 Blood Pressure Pulse Oximetry 96 96 97 06/01/24 20:00 Temperature Pulse Rate 74 Respiratory Rate 19 Blood Pressure 122/73 Pulse Oximetry 98 Exam Narrative: APPEARANCE: Well appearing, no pain, no distress, well-nourished. HEAD: normocephalic, atraumatic. EYES: PERRLA/EOMI, conjunctivae clear. NOSE: Normal no drainage EARS:TMS clear with good light reflex. THROAT: Pharynx clear, no exudate. NECK: Supple. No adenopathy, no masses. RESPIRATORY: Airway patent, respirations nonlabored. Clear to auscultation bilaterally, no rales, rhonchi, wheezing. CARDIOVASCULAR: Regular rate and rhythm without murmurs rubs or gallops. ABDOMINAL: Left lower quadrant tenderness to palpation MUSCULOSKELETAL: Moves all extremities. Strength/ROM intact, No edema, No calf tenderness. NEURO: Alert. Cranial nerves II through XII intact. Good gait. Good coordination SKIN: Warm, dry. Normal Color Const: General: cooperative, comfortable, no acute distress, alert, awake, well groomed and thin Nutritional Appearance: thin HENMT: Head: normocephalic and atraumatic Mouth: Yes Normal oral and palatal mucosa present Eyes: Eyelids: eyelids normal Conjunctivae: conjunctivae normal Sclera: sclerae normal Pupils: Equal, round and reactive pupils present EOM: EOMs intact bilaterally Neck: Neck: normal visual inspection, no lymphadenopathy and nontender Resp: Effort & Inspection: normal respiratory effort Auscultation: clear to auscultation bilaterally Cardio: Rate: regular rate Rhythm: regular rhythm Heart sounds: no gallops, no murmurs and no rubs GI: Inspection: normal to inspection, non-distended, incision (Drain sites healing well), scaphoid and no visible herniation Auscultation: normal bowel sounds Skin: Lesions: no lesions Rashes: no rashes Neuro: General: no focal motor deficits and CN's II-XI intact bilaterally Cranial nerves: Yes Equal, round and reactive pupils present, Yes Bilaterally intact EOM present, Yes facial symmetry and Yes Midline tongue present Speech: normal speech Motor exam (neuro): 5/5 motor strength present throughout and Motor abnormalities not present Extrem: General: no clubbing, cyanosis or edema and edema Psych: Appearance: well kempt Speech and movement: Clear speech present Affect: Animated affect present Attitude: cooperative Insight: Limited insight present (Psych) H&P: Results Labs Labs: Short CBC 06/01/24 Range/Units 13:34 WBC 12.7 H (4.5-10.0) K/mm3 Hgb 9.0 L (14.0-18.0) g/dL Hct 29.2 L (42.0-52.0) % Plt Count 458 H (150-375) k/mm3 BMP 06/01/24 13:33 Sodium 138 Potassium 2.6 L* Chloride 105 Carbon Dioxide 29 BUN 18 Creatinine 0.80 Glucose 129 H Calcium 8.2 L Liver Function 06/01/24 Range/Units 13:33 Total Bilirubin 1.0 (0.2-1.3) mg/dL AST 19 (17-59) U/L ALT 11 (6-50) U/L Alkaline Phosphatase 81 (38-126) U/L Albumin 3.1 L (3.5-5.1) g/dL Urine 06/01/24 Range/Units 15:43 Urine Color Dark yellow (Yellow) Urine Appearance Clear (Clear) Urine pH 5.5 (5.0-9.0) Ur Specific [place] > 1.045 H (1.001-1.035) Urine Protein 2+ H (Negative) mg/dL Urine Glucose (UA) Negative (Negative) mg/dL Assessment and Plan Assessment and plan (1) Pulmonary embolism on right: Code(s): I26.99 - Other pulmonary embolism without acute cor pulmonale Status: Acute (2) Diabetes mellitus: Code(s): E11.9 - Type 2 diabetes mellitus without complications Status: Acute (3) Hypokalemia: Code(s): E87.6 - Hypokalemia Status: Acute (4) Liver abscess: Code(s): K75.0 - Abscess of liver Status: Chronic Plan #PE -possibly be provoked by sedentary lifestyle -Order Venous Doppler -Heparin drip -monitor H&H and platelets -no evidence of cancer -hemodynamically stable -will monitor vitals #Abscess of sigmoid colon due to diverticulitis -Evaluated by surgery. -Advise medical management -Started on Zosyn #Abscess of liver -Some new areas in the more lateral right lobe of the liver that are probably smaller abscesses -Not drainable -Monitor vitals and WBC -On Zosyn Hospitalist MIPS Advance Care Plan I have confirmed that the patient's Advanced Care Plan is present, code status is documented, or surrogate decision maker is listed in patient medical record.: Yes Medication Reconciliation I have utilized all available resources to obtain, update and review the patients current medications (includes all prescriptions, OTC, herbals, cannabis, and nutritional supplements).: Yes
--- NOTE | 2024-06-01 22:35 | PC.NURSE ---
This RN not notified of bed assignment by supercharge repair supervisor. noted assignment of tracker at [id number]
--- NOTE | 2024-06-01 22:54 | ADMGEN ---
This patient, Rodney Watson, was admitted to IMU Room 212-01. Patient/family oriented to hospital policies and general routines including ID bracelet, bed and alarms, visiting hours, pain management, procedures, bathroom and other care routines, personal items, smoking policy, room service/diet, and visiting hours. Information on how to activate the Rapid Response Team has been discussed. Patient/Family are encouraged to report perceived risks to care and to ask questions if they do not understand what they are told or what they should do.
[2024-06-01] MEDS: POTASSIUM CHLORIDE INJ 40 MEQ in SODIUM CHLORIDE 0.9% IV 500 ML 130 MEQ IVPB (23:29)
[2024-06-02] VITALS (12 sets, daily range): BP systolic 107–141; BP diastolic 57–87; PULSE 65–85; RESP 16–18; TEMP 36.3–36.9; O2SAT 93–100; BMI 22.7
--- NOTE | 2024-06-02 | ECHO_ITS ---
Patient Info Name: Rodney Watson Age: 79 years : 1945 Gender: Male Ht: 69 in Wt: 163 lbs BSA: 1.90 m2 HR: 74 bpm BP: 141 / 68 mmHg Heart Rhythm: Sinus Rhythm Technical Quality: Good Exam Date: 06/02/2024 11:05 AM Exam Location: Echo Lab Exam Room: [facility] Patient Status: Inpatient Admit Date: 06/01/2024 Staff Ordering Physician: Hardeep Velarde MD Campus Security Director: Celeste York RDCS Attending Provider: Hardeep Velarde MD Exam Type: CA echo doppler color flow Study Info Complete two-dimensional, color flow and Doppler transthoracic echocardiogram is performed. Summary 1. Complete two-dimensional, color flow and Doppler transthoracic echocardiogram is performed. 2. Left ventricular chamber dimension is moderately enlarged. 3. Left ventricular systolic function is normal, estimated at 55-60%. 4. The left ventricular diastolic function is grade I diastolic dysfunction. 5. E/e' 7 is not elevated. 6. Right ventricular chamber dimension is mildly enlarged. 7. Left atrial chamber dimension is severely enlarged. 8. There is mild aortic valve sclerosis. 9. There is mild to moderate mitral valve regurgitation. 10. There is mild to moderate tricuspid valve regurgitation. 11. Severe pulmonary hypertension, estimated pulmonary arterial systolic pressure is 66 mmHg. 12. The aortic root size at the sinus of Valsalva is borderline dilated at 4.0 cm. 13. The prox ascending aorta size is mildly dilated at 4.3 cm. Left Ventricle E/e' 7 is not elevated. Left ventricular chamber dimension is moderately enlarged. Left ventricular systolic function is normal, estimated at 55-60%. The left ventricular diastolic function is grade I diastolic dysfunction. Right Ventricle Right ventricular chamber dimension is mildly enlarged. Right ventricular systolic function is normal. Left Atria Left atrial chamber dimension is severely enlarged. Right Atria Right atrial chamber dimension is normal. Aortic Valve The aortic valve is trileaflet. There is mild aortic valve sclerosis. There is no aortic valve stenosis. There is no aortic valve regurgitation. Pulmonic Valve There is no pulmonic regurgitation. Mitral Valve There is no mitral valve stenosis. There is mild to moderate mitral valve regurgitation. Tricuspid Valve There is mild to moderate tricuspid valve regurgitation. Severe pulmonary hypertension, estimated pulmonary arterial systolic pressure is 66 mmHg. Pericardium/Pleural There is no pericardial effusion. Inferior Vena Cava Normal inferior vena cava with >50% collapse upon inspiration consistent with normal right atrial pressure, 5 mmHg. Aorta The aortic root size at the sinus of Valsalva is borderline dilated at 4.0 cm. The prox ascending aorta size is mildly dilated at 4.3 cm. Left Ventricular Outflow Tract Name Value Normal LVOT 2D LVOT Diameter 2.7 cm LVOT Doppler LVOT Peak Gradient 6 mmHg LVOT Mean Gradient 3 mmHg LVOT VTI 26 cm LVOT VTI/AV VTI Ratio 0.8 LVOT Stroke Volume 144 ml LVOT CO 10.3 l/min LVOT CI 5.4 l/min/m2 Pulmonic Valve Name Value Normal PV Doppler PV Peak Gradient 5 mmHg PV Regurgitation Doppler VA Peak End Diastolic Velocity 138 cm/s Mitral Valve Name Value Normal MV Doppler MV Decel [place] 296 cm/s2 MV PHT 64 ms MV Area (PHT) 3.5 cm2 4.0-5.0 MV Regurgitation Doppler MR Peak Gradient 134 mmHg MV Diastolic Function MV E Peak Velocity 65 cm/s MV A Peak Velocity 89 cm/s MV E/A 0.7 MV Decel Time 220 ms MV Annular TDI MV E/e' (Septal) 12.5 <=8.0 MV E/e' (Lateral) 5.0 <=8.0 MV E/e' (Average) 8.7 Tricuspid Valve Name Value Normal TV Regurgitation Doppler TR Peak Velocity 389 cm/s TR Peak Gradient 61 mmHg Estimated PAP/RSVP RA Pressure 5 mmHg <=5 PA Systolic Pressure 66 mmHg <36 RV Systolic Pressure 66 mmHg <36 Aortic Valve Name Value Normal AV Doppler AV Peak Velocity 149 cm/s AV Peak Gradient 9 mmHg AV Mean Gradient 4 mmHg AV VTI 31 cm AV Area (Cont Eq VTI) 4.6 cm2 >=3.0 AV Area (Cont Eq Noel) 4.4 cm2 AV Regurgitation 2D LVOT Area 5.5 cm2 Ventricles Name Value Normal LV Dimensions 2D/MM IVS Diastolic Thickness (2D) 0.8 cm 0.6-1.0 LVID Diastole (2D) 6.3 cm 4.2-5.8 LVIW Diastolic Thickness (2D) 0.8 cm 0.6-1.0 LVID Systole (2D) 4.8 cm 2.5-4.0 LVOT Diameter 2.7 cm LV Mass (2D Cubed) 212.67 g 88.00-224.00 LV Mass Index (2D Cubed) 112 g/m2 49-115 Relative Wall Thickness (2D) 0.26 LV Fractional Shortening/Ejection Fraction 2D/MM LV Fractional Shortening (2D) 24 % 25-43 LV EF (2D Teicholz) 47 % 52-72 LV Diastolic Volume (4C MOD) 222 ml LV EF (4C MOD) 46 % LV Diastolic Length (4C) 8.5 cm LV Systolic Length (4C) 7.4 cm LV Stroke Volume (4C MOD) 102 ml Atria Name Value Normal LA Dimensions LA Volume (4C A-L) 123 ml RA Dimensions RA Area (4C) 20.4 cm2 <=18.0 Report Signatures
[2024-06-02 02:07] LABS: INR 1.5; Prothrombin Time 18.9 Seconds (11.1-14.7)
[2024-06-02 02:08] LABS: Partial Thromboplastin Time 95.4 Seconds (22.3-36.8)
[2024-06-02] MEDS: PIPERACILLN/TAZ 3.375GM/NS50ML 3.375 GM/50 ML BAG IVPB ×3 (06:30→16:57)
[2024-06-02 07:30] LABS: Basophils Percent Auto 0.4 % (0.2-1.2); Eosinophils Absolute Auto 0.1 K/mm3 (0-0.3); Eosinophils Percent Auto 0.8 % (0-4.4); Hematocrit 25.4 % (42.0-52.0); Hemoglobin 7.6 g/dL (14.0-18.0); Immature Granulocyte Absolute 0.06 K/mm3 (0.00-0.031); Immature Granulocyte Percent A 0.6 % (0-0.5); Lymphocytes Absolute Auto 0.97 K/mm3 (0.9-3.2); Lymphocytes Percent Auto 9.9 % (18.3-44.2); Mean Corpuscular HGB Conc 29.9 g/dl (32-36); Mean Platelet Volume 9.8 fl (7.4-10.4); Monocytes Absolute Auto 0.6 K/mm3 (0.1-0.6); Monocytes Percent Auto 6.3 % (2.6-8.5); Platelet Count Result 406 k/mm3 (150-375); Red Blood Count 2.92 M/mm3 (4.6-6.20); Red Cell Distribution Width 17.5 % (11.5-14.5); White Blood Count 9.8 K/mm3 (4.5-10.0)
[2024-06-02 07:44] LABS: Alanine Aminotransferase 10 U/L (6-50); Albumin Level 2.7 g/dL (3.5-5.1); Alkaline Phosphatase 84 U/L (38-126); Anion Gap 3 mmol/L (4-12); Aspartate Amino Transferase 30 U/L (17-59); Bilirubin,Total 0.8 mg/dL (0.2-1.3); Blood Urea Nitrogen 12 mg/dL (9-20); Calcium 7.8 mg/dL (8.4-10.2); Carbon Dioxide 27 mmol/L (22-30); Chloride 110 mmol/L (98-107); Estimated CRCL calculation 73 ml/min; Estimated Glomerular Filt Rate > 60; Glucose 89 mg/dL (65-110); Potassium 3.2 mmol/L (3.4-5.0); Sodium 140 mmol/L (137-145)
[2024-06-02 08:13] LABS: Partial Thromboplastin Time 93.7 Seconds (22.3-36.8)
[2024-06-02 08:23] LABS: Anisocytosis 1+; Hypochromasia 1+; Platelet Estimate Increased (Adequate); Schistocytes None Seen
--- NOTE | 2024-06-02 10:12 | PM.IMPN ---
Progress Note: A&P Assessment and Plan (1) Pulmonary embolism on right: Code(s): I26.99 - Other pulmonary embolism without acute cor pulmonale Status: Acute (2) Diabetes mellitus: Code(s): E11.9 - Type 2 diabetes mellitus without complications Status: Acute (3) Hypokalemia: Code(s): E87.6 - Hypokalemia Status: Acute (4) Liver abscess: Code(s): K75.0 - Abscess of liver Status: Chronic (5) Severe protein-calorie malnutrition: Code(s): E43 - Unspecified severe protein-calorie malnutrition Status: Acute Assessment and Plan: Nutrition consult Plan #PE -possibly be provoked by sedentary lifestyle - Venous Doppler negative for DVT -continue Heparin drip -monitor H&H and platelets -no evidence of cancer -hemodynamically stable -will monitor vitals #Abscess of sigmoid colon due to diverticulitis -Evaluated by surgery. -Advise medical management -Started on Zosyn #Abscess of liver -Some new areas in the more lateral right lobe of the liver that are probably smaller abscesses -Not drainable -Monitor vitals and WBC -On Zosyn # Low appetite Nutrition consult Discouraged appetite stimulant due to PE Subjective Date/time seen: 06/02/24 10:12 Interval history: 06/02: Patient was evaluated at the bedside denies any complaints. Nutrition is consult in regards to his decreased appetite. Negative for DVT. Patient is currently on heparin drip. His hemoglobin is dropped from 9-7.6. Currently we will continue the heparin drip and monitor his H&H. Due to the concerns of bleeding not switching to oral anticoagulants coagulant. Ordered H&H at 3:00 p.m shows 7.4/24.6 06/01: 79-year-old male with hypertension, hyperlipidemia, type 2 diabetes mellitus, gastroesophageal reflux disease, and mild dementia who presented to the emergency department for evaluation of low appetite. Patient was recently in the hospital and was treated for liver abscess and Diverticulitis of large intestine with perforation and abscess without bleeding. Patient was discharged with 2 drains and both was removed by as OP. Patient was evaluated at ED and he was able to provide a complete history. During his evaluation the patient the and daughter was present at the bedside. Both of them reports that he started eating very little. Patient reports he does not have that much appetite. Patient denies any abdominal pain or constipation. Pertinent labs in the ED: WBC 12.7, hemoglobin 9, platelet 458, sodium 138, potassium 2.6, glucose 129. UA nitrite positive, leukocyte esterase positive CT ABd/Pelvis: IMPRESSION: 1. Pulmonary emboli in the anterior, lateral and posterior basilar segments of the right lower lobe pulmonary arteries. No evidence of associated right heart strain. 2. Small bilateral posterior layering pleural effusions with associated dependent atelectasis. 3. Findings consistent with ongoing sigmoid diverticulitis with interval decompression of the left side of the 2 prior associated abscess cavities of which had interval drainage catheter placement and removal. The second abscess cavity is decrease in size but now contains primarily gas with only minimal amount of dependent fluid. There is however suggestion of small amount of intravenous gas extending peripherally from the abscess cavity. 4. Additional 1.2 cm deeper abscess cavity which contacts the dome of the bladder wall which raises concern for progression towards colovesical fistula. 5. Several new clusters of small intrahepatic abscesses in the right hepatic lobe but with interval improvement near resolution of the prior cluster of abscesses. 6. Small fat-containing right inguinal hernia. 7. A few new small <4 mm nodules in the right lung. If the patient is low risk for lung cancer, no follow-up is needed. If the patient is high risk (i.e., history of smoking or asbestos or significant radiation exposure), optional follow-up chest CT could be considered at 12 months. 8. Cardiomegaly. Patient is started on Zosyn and heparin drip. Even the CTA does not show no no evidence of heart strain will order echocardiogram and will monitor for active bleeding. Ordered lower extremity ultrasound to rule out DVT. Tomorrow if no evidence of DVT patient can be transitioned from Heparin drip to oral anticoagulant. Surgery already evaluated the patient, advised medical management. Review of Systems Review of Systems: All systems reviewed & are unremarkable except as noted in HPI and below (See HPI) ROS unobtainable: Yes unobtainable due to mental status Exam Narrative: APPEARANCE: Well appearing, no pain, no distress, well-nourished. HEAD: normocephalic, atraumatic. EYES: PERRLA/EOMI, conjunctivae clear. NOSE: Normal no drainage EARS:TMS clear with good light reflex. THROAT: Pharynx clear, no exudate. NECK: Supple. No adenopathy, no masses. RESPIRATORY: Airway patent, respirations nonlabored. Clear to auscultation bilaterally, no rales, rhonchi, wheezing. CARDIOVASCULAR: Regular rate and rhythm without murmurs rubs or gallops. ABDOMINAL: Left lower quadrant tenderness to palpation MUSCULOSKELETAL: Moves all extremities. Strength/ROM intact, No edema, No calf tenderness. NEURO: Alert. Cranial nerves II through XII intact. Good gait. Good coordination SKIN: Warm, dry. Normal Color Const: General: cooperative, comfortable, no acute distress, alert, awake, well groomed and thin Nutritional Appearance: thin HENMT: Head: normocephalic and atraumatic Mouth: Yes Normal oral and palatal mucosa present Eyes: Eyelids: eyelids normal Conjunctivae: conjunctivae normal Sclera: sclerae normal Pupils: Equal, round and reactive pupils present EOM: EOMs intact bilaterally Neck: Neck: normal visual inspection, no lymphadenopathy and nontender Resp: Effort & Inspection: normal respiratory effort Auscultation: clear to auscultation bilaterally Cardio: Rate: regular rate Rhythm: regular rhythm Heart sounds: no gallops, no murmurs and no rubs GI: Inspection: normal to inspection, non-distended, incision (Drain sites healing well), scaphoid and no visible herniation Auscultation: normal bowel sounds Skin: Lesions: no lesions Rashes: no rashes Neuro: General: no focal motor deficits and CN's II-XI intact bilaterally Cranial nerves: Yes Equal, round and reactive pupils present, Yes Bilaterally intact EOM present, Yes facial symmetry and Yes Midline tongue present Speech: normal speech Motor exam (neuro): 5/5 motor strength present throughout and Motor abnormalities not present Extrem: General: no clubbing, cyanosis or edema and edema Psych: Appearance: well kempt Speech and movement: Clear speech present Affect: Animated affect present Attitude: cooperative Insight: Limited insight present (Psych) Objective Data Vital Signs Vital Signs: Vital Signs - 24 hr 06/01/24 12:43 06/01/24 14:00 06/01/24 15:15 Temperature 97.6 F Pulse Rate 99 67 77 Respiratory Rate 16 14 14 Blood Pressure 116/69 101/51 L Pulse Oximetry 100 99 99 Oxygen Delivery 06/01/24 15:46 06/01/24 16:01 06/01/24 16:30 Temperature Pulse Rate 75 77 Respiratory Rate 19 19 19 Blood Pressure 121/88 116/77 110/77 Pulse Oximetry 99 98 96 Oxygen Delivery 06/01/24 16:50 06/01/24 17:27 06/01/24 17:30 Temperature Pulse Rate 80 73 75 Respiratory Rate 18 16 20 Blood Pressure Pulse Oximetry 96 98 98 Oxygen Delivery 06/01/24 17:45 06/01/24 18:00 06/01/24 18:19 Temperature Pulse Rate 72 77 Respiratory Rate 14 12 Blood Pressure Pulse Oximetry 97 98 97 Oxygen Delivery 06/01/24 18:21 06/01/24 18:30 06/01/24 18:31 Temperature Pulse Rate 78 71 76 Respiratory Rate 19 21 H 14 Blood Pressure 126/72 114/66 Pulse Oximetry 99 97 97 Oxygen Delivery 06/01/24 18:56 06/01/24 19:01 06/01/24 19:15 Temperature Pulse Rate 72 79 Respiratory Rate 20 15 18 Blood Pressure Pulse Oximetry 96 96 97 Oxygen Delivery 06/01/24 20:00 06/01/24 20:30 06/01/24 20:45 Temperature Pulse Rate 74 72 Respiratory Rate 19 15 20 Blood Pressure 122/73 132/84 Pulse Oximetry 98 97 97 Oxygen Delivery 06/01/24 21:15 06/01/24 22:01 06/01/24 22:46 Temperature 98.2 F Pulse Rate 72 71 84 Respiratory Rate 16 14 16 Blood Pressure 133/80 141/73 H Pulse Oximetry 97 96 95 Oxygen Delivery 06/02/24 00:00 06/02/24 00:00 06/02/24 00:00 Temperature 98.5 F Pulse Rate 73 74 Respiratory Rate 16 Blood Pressure 126/66 Pulse Oximetry 99 Oxygen Delivery Room Air 06/02/24 02:00 06/02/24 04:00 06/02/24 04:00 Temperature 98.3 F Pulse Rate 79 74 Respiratory Rate 16 Blood Pressure 141/68 H Pulse Oximetry 97 Oxygen Delivery Room Air 06/02/24 06:00 06/02/24 08:00 Temperature 98.1 F Pulse Rate 72 68 Respiratory Rate 16 Blood Pressure 120/64 Pulse Oximetry 100 Oxygen Delivery Intake/Output Intake/Output: Intake & Output 05/30/24 05/31/24 06/01/24 06/02/24 23:59 23:59 23:59 23:59 Intake Total 1150 252.5 Output Total 250 Balance 1150 2.5 Meds/Results Medications: Active Medications Generic Name Dose Route Start Last Admin Trade Name Freq PRN Reason Stop Dose Admin Heparin Sodium (Porcine) 6,000 units 06/01/24 17:47 Heparin Sodium 5,000 Units/Ml Vial IV PUSH PRN PRN aPTT less than 55 seconds Heparin Sodium (Porcine) 3,000 units 06/01/24 17:47 Heparin Sodium 5,000 Units/Ml Vial IV PUSH PRN PRN aPTT 55 - 70 seconds Piperacillin/Tazobactam/Dextrose 3.375 gm in 50 mls @ 100 mls/hr 06/01/24 18:00 06/02/24 06:30 Zosyn 3.375 Gm/Ns 50 Ml IVPB 100 mls/hr Q6H NINFA Administration Heparin Sodium/Dextrose 25,000 units in 250 mls @ 13 mls/hr 06/01/24 17:50 06/02/24 02:10 Heparin Sodium/D5w 100 Units/Ml IV CONT 1,300 units/hr .[id number] NIFNA 13 mls/hr Titration Protocol 1,300 UNITS/HR Ondansetron HCl 4 mg 06/01/24 17:49 Ondansetron Inj 4 Mg/2 Ml Vial IV PUSH Q4H PRN Nausea Perflutren Lipid Microsphere 0 ml 06/01/24 19:10 Perflutren Lipid Microspheres 1.5 Ml Vial Diluted To 10 Ml Total Volume IV PUSH 06/04/24 19:10 ONCE PRN adequate visualization Protocol Radiology Results: ITS Impressions Chest/Abdomen/Pelvis CTA 06/01/24 14:50 IMPRESSION: 1. Pulmonary emboli in the anterior, lateral and posterior basilar segments of the right lower lobe pulmonary arteries. No evidence of associated right heart strain. 2. Small bilateral posterior layering pleural effusions with associated dependent atelectasis. 3. Findings consistent with ongoing sigmoid diverticulitis with interval decompression of the left side of the 2 prior associated abscess cavities of which had interval drainage catheter placement and removal. The second abscess cavity is decrease in size but now contains primarily gas with only minimal amount of dependent fluid. There is however suggestion of small amount of intravenous gas extending peripherally from the abscess cavity. 4. Additional 1.2 cm deeper abscess cavity which contacts the dome of the bladder wall which raises concern for progression towards colovesical fistula. 5. Several new clusters of small intrahepatic abscesses in the right hepatic lobe but with interval improvement near resolution of the prior cluster of abscesses. 6. Small fat-containing right inguinal hernia. 7. A few new small <4 mm nodules in the right lung. If the patient is low risk for lung cancer, no follow-up is needed. If the patient is high risk (i.e., history of smoking or asbestos or significant radiation exposure), optional follow-up chest CT could be considered at 12 months. 8. Cardiomegaly. Venous Doppler Study 06/01/24 20:31 IMPRESSION: 1. No deep venous thrombosis. Labs Labs: Laboratory Results - last 24 hr 06/01/24 06/01/24 06/01/24 13:33 13:34 15:43 WBC 12.7 H RBC 3.37 L Hgb 9.0 L Hct 29.2 L MCV 86.6 MCH 26.7 MCHC 30.8 L RDW 17.4 H Plt Count 458 H MPV 10.1 Immature Gran % (Auto) 0.7 H Neut % (Auto) 90.3 H Lymph % (Auto) 4.2 L [place] % (Auto) 4.4 Eos % (Auto) 0.2 Baso % (Auto) 0.2 Lymph # (Auto) 0.53 L [place] # (Auto) 0.6 Eos # (Auto) 0.0 Baso # (Auto) 0.0 Abs Immat Gran (auto) 0.09 H Absolute Neuts (auto) 11.4 H Absolute Nucleated RBC 0.000 Nucleated RBC % 0.0 Platelet Estimate Increased Hypochromasia 1+ Anisocytosis 1+ Schistocytes None seen PT INR APTT Sodium 138 Potassium 2.6 L* Chloride 105 Carbon Dioxide 29 Anion Gap 4 BUN 18 Creatinine 0.80 Estim Creat Clear Calc 64 Estimated GFR > 60 Glucose 129 H Calcium 8.2 L Total Bilirubin 1.0 AST 19 ALT 11 Alkaline Phosphatase 81 Total Protein 7.0 Albumin 3.1 L Lipase 55 Urine Color Dark yellow Urine Appearance Clear Urine pH 5.5 Ur Specific [place] > 1.045 H Urine Protein 2+ H Urine Glucose (UA) Negative Urine Ketones Negative Ur Blood (Man) Negative Urine Nitrate Positive H Urine Bilirubin 2+ H Urine Urobilinogen 0.2 Add Ur Microanalysis Reviewed Leukocyte Esterase Rfl 1+ H Urine RBC 0-2 Urine WBC 0-5 Ur Squamous Epith Cells Occasional Urine Bacteria None seen Urine Casts 0-2 Hyaline Casts Present Urine Mucus Present 06/02/24 06/02/24 01:45 07:21 WBC 9.8 RBC 2.92 L Hgb 7.6 L Hct 25.4 L MCV 87.0 MCH 26.0 MCHC 29.9 L RDW 17.5 H Plt Count 406 H MPV 9.8 Immature Gran % (Auto) 0.6 H Neut % (Auto) 82.0 H Lymph % (Auto) 9.9 L [place] % (Auto) 6.3 Eos % (Auto) 0.8 Baso % (Auto) 0.4 Lymph # (Auto) 0.97 [place] # (Auto) 0.6 Eos # (Auto) 0.1 Baso # (Auto) 0.0 Abs Immat Gran (auto) 0.06 H Absolute Neuts (auto) 8.0 H Absolute Nucleated RBC 0.000 Nucleated RBC % 0.0 Platelet Estimate Increased Hypochromasia 1+ Anisocytosis 1+ Schistocytes None seen PT 18.9 H INR 1.5 APTT 95.4 H 93.7 H Sodium 140 Potassium 3.2 L Chloride 110 H Carbon Dioxide 27 Anion Gap 3 L BUN 12 D Creatinine 0.70 Estim Creat Clear Calc 73 Estimated GFR > 60 Glucose 89 Calcium 7.8 L Total Bilirubin 0.8 AST 30 ALT 10 Alkaline Phosphatase 84 Total Protein 6.0 L Albumin 2.7 L Lipase Urine Color Urine Appearance Urine pH Ur Specific [place] Urine Protein Urine Glucose (UA) Urine Ketones Ur Blood (Man) Urine Nitrate Urine Bilirubin Urine Urobilinogen Add Ur Microanalysis Leukocyte Esterase Rfl Urine RBC Urine WBC Ur Squamous Epith Cells Urine Bacteria Urine Casts Hyaline Casts Urine Mucus Hospitalist [facility] Advance Care Plan I have confirmed that the patient's Advanced Care Plan is present, code status is documented, or surrogate decision maker is listed in patient medical record.: Yes Medication Reconciliation I have utilized all available resources to obtain, update and review the patients current medications (includes all prescriptions, OTC, herbals, cannabis, and nutritional supplements).: Yes
--- NOTE | 2024-06-02 11:05 | PM.PNGS ---
Progress Note: A&P Assessment and Plan (1) Pulmonary embolism on right: Code(s): I26.99 - Other pulmonary embolism without acute cor pulmonale Status: Acute Assessment and Plan: Noted on CTA of the chest yesterday. Not currently having any breathing problems. (2) Chronic anticoagulation: Code(s): Z79.01 - [employer] (current) use of anticoagulants Status: Acute Assessment and Plan: Therapeutic on intravenous heparin drip (3) Abscess of sigmoid colon due to diverticulitis: Code(s): K57.20 - Diverticulitis of large intestine with perforation and abscess without bleeding Status: Chronic Assessment and Plan: No abscess to drain at this time. Previous left lower quadrant abscess is gone. Previous midline infraumbilical abscess has only air within it. Questionable whether active diverticulitis still occurring but patient on Zosyn antibiotics for this potential as well as liver abscess. (4) Liver abscess: Code(s): K75.0 - Abscess of liver Status: Chronic Assessment and Plan: Group of abscesses near the gallbladder on prior admission pretty much gone but has some new, smaller, abscesses more laterally in the right lobe. These are too small to drain and should be amenable to IV antibiotics. Continue Zosyn. Patient is afebrile and white blood cell count is normal this morning which is new. Subjective Subjective Date/Time Seen: 06/02/24 11:05 Patient reports: no new complaints, pain is less (Denies abdominal pain but questionably reliant with subjective symptoms), voiding w/o difficulty, no bowel movement and afebrile Interval history: Patient's daughter does not feel that he is eating very well but did describe that he ate part or all of 4 different items on his breakfast tray. Review of Systems Review of Systems: ROS unobtainable: Yes unobtainable due to mental status Exam Const: General: healthy appearing, comfortable, alert and awake Nutritional Appearance: thin GI: Inspection: non-distended and scaphoid GI Palp: Yes Soft to palpation, No Tenderness to palpation present (GI) and Yes Palpable mass present (Infraumbilical midline mass or fullness same as exam yesterday) Auscultation: normal bowel sounds Psych: Speech and movement: Clear speech present Affect: Animated affect present Attitude: cooperative Insight: Limited insight present (Psych) Objective Data Vital Signs Vital Signs: Vital Signs - 24 hr 06/01/24 12:43 06/01/24 14:00 06/01/24 15:15 Temperature 36.4 C Pulse Rate 99 67 77 Respiratory Rate 16 14 14 Blood Pressure 116/69 101/51 L Pulse Oximetry 100 99 99 Oxygen Delivery 06/01/24 15:46 06/01/24 16:01 06/01/24 16:30 Temperature Pulse Rate 75 77 Respiratory Rate 19 19 19 Blood Pressure 121/88 116/77 110/77 Pulse Oximetry 99 98 96 Oxygen Delivery 06/01/24 16:50 06/01/24 17:27 06/01/24 17:30 Temperature Pulse Rate 80 73 75 Respiratory Rate 18 16 20 Blood Pressure Pulse Oximetry 96 98 98 Oxygen Delivery 06/01/24 17:45 06/01/24 18:00 06/01/24 18:19 Temperature Pulse Rate 72 77 Respiratory Rate 14 12 Blood Pressure Pulse Oximetry 97 98 97 Oxygen Delivery 06/01/24 18:21 06/01/24 18:30 06/01/24 18:31 Temperature Pulse Rate 78 71 76 Respiratory Rate 19 21 H 14 Blood Pressure 126/72 114/66 Pulse Oximetry 99 97 97 Oxygen Delivery 06/01/24 18:56 06/01/24 19:01 06/01/24 19:15 Temperature Pulse Rate 72 79 Respiratory Rate 20 15 18 Blood Pressure Pulse Oximetry 96 96 97 Oxygen Delivery 06/01/24 20:00 06/01/24 20:30 06/01/24 20:45 Temperature Pulse Rate 74 72 Respiratory Rate 19 15 20 Blood Pressure 122/73 132/84 Pulse Oximetry 98 97 97 Oxygen Delivery 06/01/24 21:15 06/01/24 22:01 06/01/24 22:46 Temperature 36.8 C Pulse Rate 72 71 84 Respiratory Rate 16 14 16 Blood Pressure 133/80 141/73 H Pulse Oximetry 97 96 95 Oxygen Delivery 06/02/24 00:00 06/02/24 00:00 06/02/24 00:00 Temperature 36.9 C Pulse Rate 73 74 Respiratory Rate 16 Blood Pressure 126/66 Pulse Oximetry 99 Oxygen Delivery Room Air 06/02/24 02:00 06/02/24 04:00 06/02/24 04:00 Temperature 36.8 C Pulse Rate 79 74 Respiratory Rate 16 Blood Pressure 141/68 H Pulse Oximetry 97 Oxygen Delivery Room Air 06/02/24 06:00 06/02/24 08:00 Temperature 36.7 C Pulse Rate 72 68 Respiratory Rate 16 Blood Pressure 120/64 Pulse Oximetry 100 Oxygen Delivery Intake/Output Intake/Output: Intake & Output 05/30/24 05/31/24 06/01/24 06/02/24 23:59 23:59 23:59 23:59 Intake Total 1150 252.5 Output Total 250 Balance 1150 2.5 Meds/Results Medications: Active Medications Generic Name Dose Route Start Last Admin Trade Name Freq PRN Reason Stop Dose Admin Heparin Sodium (Porcine) 6,000 units 06/01/24 17:47 Heparin Sodium 5,000 Units/Ml Vial IV PUSH PRN PRN aPTT less than 55 seconds Heparin Sodium (Porcine) 3,000 units 06/01/24 17:47 Heparin Sodium 5,000 Units/Ml Vial IV PUSH PRN PRN aPTT 55 - 70 seconds Piperacillin/Tazobactam/Dextrose 3.375 gm in 50 mls @ 100 mls/hr 06/01/24 18:00 06/02/24 06:30 Zosyn 3.375 Gm/Ns 50 Ml IVPB 100 mls/hr Q6H NINFA Administration Heparin Sodium/Dextrose 25,000 units in 250 mls @ 13 mls/hr 06/01/24 17:50 06/02/24 02:10 Heparin Sodium/D5w 100 Units/Ml IV CONT 1,300 units/hr .[id number] NINFA 13 mls/hr Titration Protocol 1,300 UNITS/HR Ondansetron HCl 4 mg 06/01/24 17:49 Ondansetron Inj 4 Mg/2 Ml Vial IV PUSH Q4H PRN Nausea Perflutren Lipid Microsphere 0 ml 06/01/24 19:10 Perflutren Lipid Microspheres 1.5 Ml Vial Diluted To 10 Ml Total Volume IV PUSH 06/04/24 19:10 ONCE PRN adequate visualization Protocol Radiology Results: ITS Impressions Chest/Abdomen/Pelvis CTA 06/01/24 14:50 IMPRESSION: 1. Pulmonary emboli in the anterior, lateral and posterior basilar segments of the right lower lobe pulmonary arteries. No evidence of associated right heart strain. 2. Small bilateral posterior layering pleural effusions with associated dependent atelectasis. 3. Findings consistent with ongoing sigmoid diverticulitis with interval decompression of the left side of the 2 prior associated abscess cavities of which had interval drainage catheter placement and removal. The second abscess cavity is decrease in size but now contains primarily gas with only minimal amount of dependent fluid. There is however suggestion of small amount of intravenous gas extending peripherally from the abscess cavity. 4. Additional 1.2 cm deeper abscess cavity which contacts the dome of the bladder wall which raises concern for progression towards colovesical fistula. 5. Several new clusters of small intrahepatic abscesses in the right hepatic lobe but with interval improvement near resolution of the prior cluster of abscesses. 6. Small fat-containing right inguinal hernia. 7. A few new small <4 mm nodules in the right lung. If the patient is low risk for lung cancer, no follow-up is needed. If the patient is high risk (i.e., history of smoking or asbestos or significant radiation exposure), optional follow-up chest CT could be considered at 12 months. 8. Cardiomegaly. Venous Doppler Study 06/01/24 20:31 IMPRESSION: 1. No deep venous thrombosis. Labs Labs: Laboratory Results - last 24 hr 06/01/24 06/01/24 06/01/24 13:33 13:34 15:43 WBC 12.7 H RBC 3.37 L Hgb 9.0 L Hct 29.2 L MCV 86.6 MCH 26.7 MCHC 30.8 L RDW 17.4 H Plt Count 458 H MPV 10.1 Immature Gran % (Auto) 0.7 H Neut % (Auto) 90.3 H Lymph % (Auto) 4.2 L [place] % (Auto) 4.4 Eos % (Auto) 0.2 Baso % (Auto) 0.2 Lymph # (Auto) 0.53 L [place] # (Auto) 0.6 Eos # (Auto) 0.0 Baso # (Auto) 0.0 Abs Immat Gran (auto) 0.09 H Absolute Neuts (auto) 11.4 H Absolute Nucleated RBC 0.000 Nucleated RBC % 0.0 Platelet Estimate Increased Hypochromasia 1+ Anisocytosis 1+ Schistocytes None seen PT INR APTT Sodium 138 Potassium 2.6 L* Chloride 105 Carbon Dioxide 29 Anion Gap 4 BUN 18 Creatinine 0.80 Estim Creat Clear Calc 64 Estimated GFR > 60 Glucose 129 H Calcium 8.2 L Total Bilirubin 1.0 AST 19 ALT 11 Alkaline Phosphatase 81 Total Protein 7.0 Albumin 3.1 L Lipase 55 Urine Color Dark yellow Urine Appearance Clear Urine pH 5.5 Ur Specific [place] > 1.045 H Urine Protein 2+ H Urine Glucose (UA) Negative Urine Ketones Negative Ur Blood (Man) Negative Urine Nitrate Positive H Urine Bilirubin 2+ H Urine Urobilinogen 0.2 Add Ur Microanalysis Reviewed Leukocyte Esterase Rfl 1+ H Urine RBC 0-2 Urine WBC 0-5 Ur Squamous Epith Cells Occasional Urine Bacteria None seen Urine Casts 0-2 Hyaline Casts Present Urine Mucus Present 06/02/24 06/02/24 01:45 07:21 WBC 9.8 RBC 2.92 L Hgb 7.6 L Hct 25.4 L MCV 87.0 MCH 26.0 MCHC 29.9 L RDW 17.5 H Plt Count 406 H MPV 9.8 Immature Gran % (Auto) 0.6 H Neut % (Auto) 82.0 H Lymph % (Auto) 9.9 L [place] % (Auto) 6.3 Eos % (Auto) 0.8 Baso % (Auto) 0.4 Lymph # (Auto) 0.97 [place] # (Auto) 0.6 Eos # (Auto) 0.1 Baso # (Auto) 0.0 Abs Immat Gran (auto) 0.06 H Absolute Neuts (auto) 8.0 H Absolute Nucleated RBC 0.000 Nucleated RBC % 0.0 Platelet Estimate Increased Hypochromasia 1+ Anisocytosis 1+ Schistocytes None seen PT 18.9 H INR 1.5 APTT 95.4 H 93.7 H Sodium 140 Potassium 3.2 L Chloride 110 H Carbon Dioxide 27 Anion Gap 3 L BUN 12 D Creatinine 0.70 Estim Creat Clear Calc 73 Estimated GFR > 60 Glucose 89 Calcium 7.8 L Total Bilirubin 0.8 AST 30 ALT 10 Alkaline Phosphatase 84 Total Protein 6.0 L Albumin 2.7 L Lipase Urine Color Urine Appearance Urine pH Ur Specific [place] Urine Protein Urine Glucose (UA) Urine Ketones Ur Blood (Man) Urine Nitrate Urine Bilirubin Urine Urobilinogen Add Ur Microanalysis Leukocyte Esterase Rfl Urine RBC Urine WBC Ur Squamous Epith Cells Urine Bacteria Urine Casts Hyaline Casts Urine Mucus
[2024-06-02] MEDS: HEPARIN SOD/D5W 100 UNITS/ML 25,000 UNITS/250 ML BAG 13 UNITS IV CONT (13:39)
[2024-06-02 14:21] LABS: Hematocrit 24.6 % (42.0-52.0); Hemoglobin 7.4 g/dL (14.0-18.0)
[2024-06-02 14:39] LABS: Partial Thromboplastin Time 84.7 Seconds (22.3-36.8)
[2024-06-03] VITALS (20 sets, daily range): BP systolic 106–139; BP diastolic 66–83; PULSE 65–117; RESP 16–18; TEMP 36.4–37.1; O2SAT 91–100
[2024-06-03] MEDS: PIPERACILLN/TAZ 3.375GM/NS50ML 3.375 GM/50 ML BAG IVPB ×4 (00:11→18:11)
[2024-06-03 04:31] LABS: Hematocrit 25.7 % (42.0-52.0); Hemoglobin 7.8 g/dL (14.0-18.0); Mean Corpuscular HGB Conc 30.4 g/dl (32-36); Mean Corpuscular Hemoglobin 26.4 pg (26-34); Mean Corpuscular Volume 86.8 fl (80-100); Mean Platelet Volume 9.9 fl (7.4-10.4); Platelet Count Result 423 k/mm3 (150-375); Red Blood Count 2.96 M/mm3 (4.6-6.20); Red Cell Distribution Width 17.7 % (11.5-14.5); White Blood Count 9.3 K/mm3 (4.5-10.0)
[2024-06-03 04:45] LABS: Partial Thromboplastin Time 115.6 Seconds (22.3-36.8)
[2024-06-03 04:46] LABS: Alanine Aminotransferase 8 U/L (6-50); Albumin Level 2.6 g/dL (3.5-5.1); Alkaline Phosphatase 70 U/L (38-126); Anion Gap 0 mmol/L (4-12); Aspartate Amino Transferase 29 U/L (17-59); Bilirubin,Total 0.6 mg/dL (0.2-1.3); Blood Urea Nitrogen 11 mg/dL (9-20); Calcium 7.8 mg/dL (8.4-10.2); Carbon Dioxide 30 mmol/L (22-30); Chloride 110 mmol/L (98-107); Estimated CRCL calculation 73 ml/min; Estimated Glomerular Filt Rate > 60; Glucose 96 mg/dL (65-110); Potassium 3.2 mmol/L (3.4-5.0); Sodium 140 mmol/L (137-145)
[2024-06-03] MEDS: ACETAMINOPHEN 325 MG TABLET 650 MG PO (09:39)
[2024-06-03] MEDS: amLODIPine BESYLATE 5 MG TABLET PO (09:40)
[2024-06-03] MEDS: MEMANTINE 10 MG TABLET PO ×2 (09:40→18:11)
[2024-06-03] MEDS: FERROUS SULFATE 325 MG TABLET DR PO ×2 (09:40→18:11)
[2024-06-03] MEDS: APIXABAN 5 MG TABLET 10 MG PO ×2 (09:40→20:05)
[2024-06-03] MEDS: SERTRALINE HCL 50 MG TABLET 100 MG PO (09:40)
[2024-06-03] MEDS: POTASSIUM CHLORIDE 20 MEQ PACKET (FOR LIQUID) 40 MEQ PO (09:41)
[2024-06-03] MEDS: SODIUM CHLORIDE 0.9% IV 100 ML 30 ML (11:13)
[2024-06-03] MEDS: TUBING, BLOOD PLUM PUMP TUBING 1 EACH XX (11:13)
--- NOTE | 2024-06-03 13:42 | P.PNGS_ITS ---
Progress Note: A&P Assessment and Plan (1) Pulmonary embolism on right: Code(s): I26.99 - Other pulmonary embolism without acute cor pulmonale Status: Acute Assessment and Plan: Noted on CTA of the chest. Not currently having any breathing problems. (2) Chronic anticoagulation: Code(s): Z79.01 - longterm (current) use of anticoagulants Status: Acute Assessment and Plan: Therapeutic on intravenous heparin drip (3) Abscess of sigmoid colon due to diverticulitis: Code(s): K57.20 - Diverticulitis of large intestine with perforation and abscess without bleeding Status: Chronic Assessment and Plan: No abscess to drain at this time. Previous left lower quadrant abscess is gone. Previous midline infraumbilical abscess has only air within it. Questionable whether active diverticulitis still occurring but patient on Zosyn antibiotics for this potential as well as liver abscess. (4) Liver abscess: Code(s): K75.0 - Abscess of liver Status: Chronic Assessment and Plan: Group of abscesses near the gallbladder on prior admission pretty much gone but has some new, smaller, abscesses more laterally in the right lobe. These are too small to drain and should be amenable to IV antibiotics. Continue Zosyn. Patient is afebrile and white blood cell count is normal this morning which is new. Subjective Subjective Date/Time Seen: 06/03/24 13:42 Interval history: Patient not really complaining of much abdominal pain. Still not much appetite. No fevers. Bowels are loose. Exam GI: Inspection: non-distended GI Palp: Yes Soft to palpation, No Tenderness to palpation present (GI) and No Guarding due to palpation present (GI) Auscultation: normal bowel sounds Objective Data Vital Signs Vital Signs: Vital Signs - 24 hr 06/02/24 14:00 06/02/24 16:00 06/02/24 16:00 Temperature 97.3 F L Pulse Rate 66 72 67 Respiratory Rate 16 Blood Pressure 117/72 Pulse Oximetry 97 06/02/24 18:00 06/02/24 20:00 06/02/24 20:00 Temperature 98.2 F Pulse Rate 65 76 85 Respiratory Rate 16 Blood Pressure 107/57 L Pulse Oximetry 100 06/02/24 22:00 06/03/24 00:00 06/03/24 00:00 Temperature 98.4 F Pulse Rate 73 73 73 Respiratory Rate 16 Blood Pressure 124/69 Pulse Oximetry 100 06/03/24 02:00 06/03/24 04:00 06/03/24 04:00 Temperature 98.2 F Pulse Rate 85 91 71 Respiratory Rate 16 Blood Pressure 131/69 Pulse Oximetry 97 06/03/24 06:00 06/03/24 07:43 06/03/24 07:51 Temperature 98.8 F Pulse Rate 67 72 Respiratory Rate 18 18 Blood Pressure 136/71 Pulse Oximetry 98 06/03/24 08:00 06/03/24 10:00 06/03/24 10:59 Temperature 98.2 F Pulse Rate 76 74 65 Respiratory Rate 16 Blood Pressure 112/71 Pulse Oximetry 91 06/03/24 11:15 06/03/24 11:30 06/03/24 12:00 Temperature 98.5 F 98.5 F Pulse Rate 72 71 73 Respiratory Rate 16 18 Blood Pressure 117/68 117/68 Pulse Oximetry 98 98 06/03/24 12:15 06/03/24 13:15 Temperature 97.5 F L 98.4 F Pulse Rate 81 78 Respiratory Rate 16 17 Blood Pressure 127/74 106/66 Pulse Oximetry 98 99 Intake/Output Intake/Output: Intake & Output 05/31/24 06/01/24 06/02/24 06/03/24 23:59 23:59 23:59 23:59 Intake Total 1150 1315.0 1140.0 Output Total 250 Balance 1150 1065.0 1140.0 Meds/Results Medications: Active Medications Generic Name Dose Route Start Last Admin Trade Name Freq PRN Reason Stop Dose Admin Acetaminophen 650 mg 06/03/24 09:24 06/03/24 09:39 Acetaminophen 325 Mg Tablet PO 650 mg Q6H PRN Administration Mild Pain (1-3) or Fever Amlodipine Besylate 5 mg 06/03/24 09:00 06/03/24 09:40 Amlodipine Besylate 5 Mg Tablet PO 5 mg DAILY NINFA Administration Apixaban 10 mg 06/03/24 09:00 06/03/24 09:40 Apixaban 5 Mg Tablet PO 06/09/24 21:01 10 mg Q12HR NINFA Administration Apixaban 5 mg 06/10/24 09:00 Apixaban 5 Mg Tablet PO Q12HR NINFA Ferrous Sulfate 325 mg 06/03/24 09:00 06/03/24 09:40 Ferrous Sulfate [address] PO 325 mg BID NINFA Administration Piperacillin/Tazobactam/Dextrose 3.375 gm in 50 mls @ 100 mls/hr 06/01/24 18:00 06/03/24 12:59 Zosyn 3.375 Gm/Ns 50 Ml IVPB 100 mls/hr Q6H NINFA Administration Sodium Chloride 250 mls @ 30 mls/hr 06/03/24 09:28 06/03/24 11:13 Normal Saline Iv IV CONT 06/03/24 17:47 Not Given .Q8H20M STA Memantine 10 mg 06/03/24 09:00 06/03/24 09:40 Memantine 10 Mg Tablet PO 10 mg BID NINFA Administration Ondansetron HCl 4 mg 06/01/24 17:49 Ondansetron Inj 4 Mg/2 Ml Vial IV PUSH Q4H PRN Nausea Perflutren Lipid Microsphere 0 ml 06/01/24 19:10 Perflutren Lipid Microspheres 1.5 Ml Vial Diluted To 10 Ml Total Volume IV PUSH 06/04/24 19:10 ONCE PRN adequate visualization Protocol Sertraline HCl 100 mg 06/03/24 09:00 06/03/24 09:40 Sertraline Hcl 50 Mg Tablet PO 100 mg DAILY NINFA Administration Radiology Results: ITS Impressions Chest/Abdomen/Pelvis CTA 06/01/24 14:50 IMPRESSION: 1. Pulmonary emboli in the anterior, lateral and posterior basilar segments of the right lower lobe pulmonary arteries. No evidence of associated right heart strain. 2. Small bilateral posterior layering pleural effusions with associated dependent atelectasis. 3. Findings consistent with ongoing sigmoid diverticulitis with interval decompression of the left side of the 2 prior associated abscess cavities of which had interval drainage catheter placement and removal. The second abscess cavity is decrease in size but now contains primarily gas with only minimal amount of dependent fluid. There is however suggestion of small amount of intravenous gas extending peripherally from the abscess cavity. 4. Additional 1.2 cm deeper abscess cavity which contacts the dome of the bladder wall which raises concern for progression towards colovesical fistula. 5. Several new clusters of small intrahepatic abscesses in the right hepatic lobe but with interval improvement near resolution of the prior cluster of abscesses. 6. Small fat-containing right inguinal hernia. 7. A few new small <4 mm nodules in the right lung. If the patient is low risk for lung cancer, no follow-up is needed. If the patient is high risk (i.e., history of smoking or asbestos or significant radiation exposure), optional follow-up chest CT could be considered at 12 months. 8. Cardiomegaly. Venous Doppler Study 06/01/24 20:31 IMPRESSION: 1. No deep venous thrombosis. Labs Labs: Laboratory Results - last 24 hr 06/02/24 06/03/24 06/03/24 14:13 04:24 09:35 WBC 9.3 RBC 2.96 L Hgb 7.4 L 7.8 L Hct 24.6 L 25.7 L MCV 86.8 MCH 26.4 MCHC 30.4 L RDW 17.7 H Plt Count 423 H MPV 9.9 APTT 84.7 H 115.6 H Sodium 140 Potassium 3.2 L Chloride 110 H Carbon Dioxide 30 Anion Gap 0 L BUN 11 Creatinine 0.70 Estim Creat Clear Calc 73 Estimated GFR > 60 Glucose 96 Calcium 7.8 L Total Bilirubin 0.6 AST 29 ALT 8 Alkaline Phosphatase 70 Total Protein 6.0 L Albumin 2.6 L Blood Type O Positive Antibody Screen Negative Crossmatch See Detail
--- NOTE | 2024-06-03 14:03 | PM.IMPN ---
Progress Note: A&P Assessment and Plan (1) Pulmonary embolism on right: Code(s): I26.99 - Other pulmonary embolism without acute cor pulmonale Status: Acute (2) Diabetes mellitus: Code(s): E11.9 - Type 2 diabetes mellitus without complications Status: Acute (3) Hypokalemia: Code(s): E87.6 - Hypokalemia Status: Acute (4) Liver abscess: Code(s): K75.0 - Abscess of liver Status: Chronic (5) Severe protein-calorie malnutrition: Code(s): E43 - Unspecified severe protein-calorie malnutrition Status: Acute Assessment and Plan: Nutrition consult Plan #PE -possibly be provoked by sedentary lifestyle - Venous Doppler negative for DVT -discontinue Heparin drip -Started Eliquis 10 mg p.o. b.i.d. for 7 days and continue apixaban 5 mg p.o. b.i.d. for at least 6 months. -monitor H&H and platelets -no evidence of cancer -hemodynamically stable -will monitor vitals #Abscess of sigmoid colon due to diverticulitis -Evaluated by surgery. -Advise medical management -Started on Zosyn #Abscess of liver -Some new areas in the more lateral right lobe of the liver that are probably smaller abscesses -Not drainable -Monitor vitals and WBC -On Zosyn # Low appetite Nutrition consult Discouraged appetite stimulant due to PE Subjective Date/time seen: 06/03/24 14:03 Interval history: Patient heparin drip has been stopped. Started Eliquis 10 mg p.o. b.i.d. for 7 days and continue apixaban 5 mg p.o. b.i.d. for at least 6 months. Given 1 unit of packed RBC. Patient denies any complaint. Will continue Zosyn. Review of Systems Review of Systems: All systems reviewed & are unremarkable except as noted in HPI and below (See HPI) ROS unobtainable: Yes unobtainable due to mental status Exam Narrative: APPEARANCE: Well appearing, no pain, no distress, well-nourished. HEAD: normocephalic, atraumatic. EYES: PERRLA/EOMI, conjunctivae clear. NOSE: Normal no drainage EARS:TMS clear with good light reflex. THROAT: Pharynx clear, no exudate. NECK: Supple. No adenopathy, no masses. RESPIRATORY: Airway patent, respirations nonlabored. Clear to auscultation bilaterally, no rales, rhonchi, wheezing. CARDIOVASCULAR: Regular rate and rhythm without murmurs rubs or gallops. ABDOMINAL: Left lower quadrant tenderness to palpation MUSCULOSKELETAL: Moves all extremities. Strength/ROM intact, No edema, No calf tenderness. NEURO: Alert. Cranial nerves II through XII intact. Good gait. Good coordination SKIN: Warm, dry. Normal Color Const: General: cooperative, comfortable, no acute distress, alert, awake, well groomed and thin Nutritional Appearance: thin HENMT: Head: normocephalic and atraumatic Mouth: Yes Normal oral and palatal mucosa present Eyes: Eyelids: eyelids normal Conjunctivae: conjunctivae normal Sclera: sclerae normal Pupils: Equal, round and reactive pupils present EOM: EOMs intact bilaterally Neck: Neck: normal visual inspection, no lymphadenopathy and nontender Resp: Effort & Inspection: normal respiratory effort Auscultation: clear to auscultation bilaterally Cardio: Rate: regular rate Rhythm: regular rhythm Heart sounds: no gallops, no murmurs and no rubs GI: Inspection: normal to inspection, non-distended, incision (Drain sites healing well), scaphoid and no visible herniation Auscultation: normal bowel sounds Skin: Lesions: no lesions Rashes: no rashes Neuro: General: no focal motor deficits and CN's II-XI intact bilaterally Cranial nerves: Yes Equal, round and reactive pupils present, Yes Bilaterally intact EOM present, Yes facial symmetry and Yes Midline tongue present Speech: normal speech Motor exam (neuro): 5/5 motor strength present throughout and Motor abnormalities not present Extrem: General: no clubbing, cyanosis or edema and edema Psych: Appearance: well kempt Speech and movement: Clear speech present Affect: Animated affect present Attitude: cooperative Insight: Limited insight present (Psych) Objective Data Vital Signs Vital Signs: Vital Signs - 24 hr 06/02/24 16:00 06/02/24 16:00 06/02/24 18:00 Temperature 97.3 F L Pulse Rate 72 67 65 Respiratory Rate 16 Blood Pressure 117/72 Pulse Oximetry 97 06/02/24 20:00 06/02/24 20:00 06/02/24 22:00 Temperature 98.2 F Pulse Rate 76 85 73 Respiratory Rate 16 Blood Pressure 107/57 L Pulse Oximetry 100 06/03/24 00:00 06/03/24 00:00 06/03/24 02:00 Temperature 98.4 F Pulse Rate 73 73 85 Respiratory Rate 16 Blood Pressure 124/69 Pulse Oximetry 100 06/03/24 04:00 06/03/24 04:00 06/03/24 06:00 Temperature 98.2 F Pulse Rate 91 71 67 Respiratory Rate 16 Blood Pressure 131/69 Pulse Oximetry 97 06/03/24 07:43 06/03/24 07:51 06/03/24 08:00 Temperature 98.8 F Pulse Rate 72 76 Respiratory Rate 18 18 Blood Pressure 136/71 Pulse Oximetry 98 06/03/24 10:00 06/03/24 10:59 06/03/24 11:15 Temperature 98.2 F 98.5 F Pulse Rate 74 65 72 Respiratory Rate 16 16 Blood Pressure 112/71 117/68 Pulse Oximetry 91 98 06/03/24 11:30 06/03/24 12:00 06/03/24 12:15 Temperature 98.5 F 97.5 F L Pulse Rate 71 73 81 Respiratory Rate 18 16 Blood Pressure 117/68 127/74 Pulse Oximetry 98 98 06/03/24 13:15 Temperature 98.4 F Pulse Rate 78 Respiratory Rate 17 Blood Pressure 106/66 Pulse Oximetry 99 Intake/Output Intake/Output: Intake & Output 05/31/24 06/01/24 06/02/24 06/03/24 23:59 23:59 23:59 23:59 Intake Total 1150 1315.0 1140.0 Output Total 250 Balance 1150 1065.0 1140.0 Meds/Results Medications: Active Medications Generic Name Dose Route Start Last Admin Trade Name Freq PRN Reason Stop Dose Admin Acetaminophen 650 mg 06/03/24 09:24 06/03/24 09:39 Acetaminophen 325 Mg Tablet PO 650 mg Q6H PRN Administration Mild Pain (1-3) or Fever Amlodipine Besylate 5 mg 06/03/24 09:00 06/03/24 09:40 Amlodipine Besylate 5 Mg Tablet PO 5 mg DAILY NINFA Administration Apixaban 10 mg 06/03/24 09:00 06/03/24 09:40 Apixaban 5 Mg Tablet PO 06/09/24 21:01 10 mg Q12HR NINFA Administration Apixaban 5 mg 06/10/24 09:00 Apixaban 5 Mg Tablet PO Q12HR NINFA Ferrous Sulfate 325 mg 06/03/24 09:00 06/03/24 09:40 Ferrous Sulfate [address] PO 325 mg BID NINFA Administration Piperacillin/Tazobactam/Dextrose 3.375 gm in 50 mls @ 100 mls/hr 06/01/24 18:00 06/03/24 12:59 Zosyn 3.375 Gm/Ns 50 Ml IVPB 100 mls/hr Q6H NINFA Administration Sodium Chloride 250 mls @ 30 mls/hr 06/03/24 09:28 06/03/24 11:13 Normal Saline Iv IV CONT 06/03/24 17:47 Not Given .Q8H20M STA Loperamide HCl 2 mg 06/03/24 13:43 Loperamide Hcl 2 Mg Capsule PO Q6H PRN Diarrhea Memantine 10 mg 06/03/24 09:00 06/03/24 09:40 Memantine 10 Mg Tablet PO 10 mg BID NINFA Administration Ondansetron HCl 4 mg 06/01/24 17:49 Ondansetron Inj 4 Mg/2 Ml Vial IV PUSH Q4H PRN Nausea Perflutren Lipid Microsphere 0 ml 06/01/24 19:10 Perflutren Lipid Microspheres 1.5 Ml Vial Diluted To 10 Ml Total Volume IV PUSH 06/04/24 19:10 ONCE PRN adequate visualization Protocol Sertraline HCl 100 mg 06/03/24 09:00 06/03/24 09:40 Sertraline Hcl 50 Mg Tablet PO 100 mg DAILY NINFA Administration Radiology Results: ITS Impressions Chest/Abdomen/Pelvis CTA 06/01/24 14:50 IMPRESSION: 1. Pulmonary emboli in the anterior, lateral and posterior basilar segments of the right lower lobe pulmonary arteries. No evidence of associated right heart strain. 2. Small bilateral posterior layering pleural effusions with associated dependent atelectasis. 3. Findings consistent with ongoing sigmoid diverticulitis with interval decompression of the left side of the 2 prior associated abscess cavities of which had interval drainage catheter placement and removal. The second abscess cavity is decrease in size but now contains primarily gas with only minimal amount of dependent fluid. There is however suggestion of small amount of intravenous gas extending peripherally from the abscess cavity. 4. Additional 1.2 cm deeper abscess cavity which contacts the dome of the bladder wall which raises concern for progression towards colovesical fistula. 5. Several new clusters of small intrahepatic abscesses in the right hepatic lobe but with interval improvement near resolution of the prior cluster of abscesses. 6. Small fat-containing right inguinal hernia. 7. A few new small <4 mm nodules in the right lung. If the patient is low risk for lung cancer, no follow-up is needed. If the patient is high risk (i.e., history of smoking or asbestos or significant radiation exposure), optional follow-up chest CT could be considered at 12 months. 8. Cardiomegaly. Venous Doppler Study 06/01/24 20:31 IMPRESSION: 1. No deep venous thrombosis. Labs Labs: Laboratory Results - last 24 hr 06/02/24 06/03/24 06/03/24 14:13 04:24 09:35 WBC 9.3 RBC 2.96 L Hgb 7.4 L 7.8 L Hct 24.6 L 25.7 L MCV 86.8 MCH 26.4 MCHC 30.4 L RDW 17.7 H Plt Count 423 H MPV 9.9 APTT 84.7 H 115.6 H Sodium 140 Potassium 3.2 L Chloride 110 H Carbon Dioxide 30 Anion Gap 0 L BUN 11 Creatinine 0.70 Estim Creat Clear Calc 73 Estimated GFR > 60 Glucose 96 Calcium 7.8 L Total Bilirubin 0.6 AST 29 ALT 8 Alkaline Phosphatase 70 Total Protein 6.0 L Albumin 2.6 L Blood Type O Positive Antibody Screen Negative Crossmatch See Detail Hospitalist MIPS Advance Care Plan I have confirmed that the patient's Advanced Care Plan is present, code status is documented, or surrogate decision maker is listed in patient medical record.: Yes Medication Reconciliation I have utilized all available resources to obtain, update and review the patients current medications (includes all prescriptions, OTC, herbals, cannabis, and nutritional supplements).: Yes
[2024-06-04] VITALS (16 sets, daily range): BP systolic 114–133; BP diastolic 65–75; PULSE 74–102; RESP 18–20; TEMP 36.4–37.6; O2SAT 94–100
[2024-06-04] MEDS: PIPERACILLN/TAZ 3.375GM/NS50ML 3.375 GM/50 ML BAG IVPB ×4 (00:07→18:21)
[2024-06-04 05:08] LABS: Hematocrit 26.7 % (42.0-52.0); Hemoglobin 8.1 g/dL (14.0-18.0); Mean Corpuscular HGB Conc 30.3 g/dl (32-36); Mean Corpuscular Hemoglobin 26.2 pg (26-34); Mean Corpuscular Volume 86.4 fl (80-100); Mean Platelet Volume 10.2 fl (7.4-10.4); Platelet Count Result 417 k/mm3 (150-375); Red Blood Count 3.09 M/mm3 (4.6-6.20); Red Cell Distribution Width 17.7 % (11.5-14.5); White Blood Count 9.1 K/mm3 (4.5-10.0)
[2024-06-04 05:18] LABS: Alanine Aminotransferase 8 U/L (6-50); Albumin Level 2.6 g/dL (3.5-5.1); Alkaline Phosphatase 67 U/L (38-126); Anion Gap 3 mmol/L (4-12); Aspartate Amino Transferase 17 U/L (17-59); Bilirubin,Total 0.8 mg/dL (0.2-1.3); Blood Urea Nitrogen 9 mg/dL (9-20); Calcium 7.8 mg/dL (8.4-10.2); Carbon Dioxide 26 mmol/L (22-30); Chloride 110 mmol/L (98-107); Estimated CRCL calculation 74 ml/min; Estimated Glomerular Filt Rate > 60; Glucose 89 mg/dL (65-110); Partial Thromboplastin Time 42.8 Seconds (22.3-36.8); Potassium 3.2 mmol/L (3.4-5.0); Sodium 139 mmol/L (137-145)
[2024-06-04] MEDS: POTASSIUM CHLORIDE 20 MEQ PACKET (FOR LIQUID) 60 MEQ PO (08:27)
[2024-06-04] MEDS: SERTRALINE HCL 50 MG TABLET 100 MG PO (08:28)
[2024-06-04] MEDS: MEMANTINE 10 MG TABLET PO ×2 (08:28→18:20)
[2024-06-04] MEDS: FERROUS SULFATE 325 MG TABLET DR PO ×2 (08:28→18:20)
[2024-06-04] MEDS: amLODIPine BESYLATE 5 MG TABLET PO (08:28)
[2024-06-04] MEDS: APIXABAN 5 MG TABLET 10 MG PO ×2 (08:28→22:06)
[2024-06-04 10:00] LABS: Magnesium 1.8 mg/dL (1.6-2.3)
--- NOTE | 2024-06-04 10:18 | PM.PNGS ---
Progress Note: A&P Assessment and Plan (1) Pulmonary embolism on right: Code(s): I26.99 - Other pulmonary embolism without acute cor pulmonale Status: Acute Assessment and Plan: Noted on CTA of the chest. Not currently having any breathing problems. (2) Chronic anticoagulation: Code(s): Z79.01 - salvage determiner (current) use of anticoagulants Status: Acute Assessment and Plan: Therapeutic on intravenous heparin drip (3) Abscess of sigmoid colon due to diverticulitis: Code(s): K57.20 - Diverticulitis of large intestine with perforation and abscess without bleeding Status: Chronic Assessment and Plan: No abscess to drain at this time. Previous left lower quadrant abscess is gone. Previous midline infraumbilical abscess has only air within it. Questionable whether active diverticulitis still occurring but patient on Zosyn antibiotics for this potential as well as liver abscess. (4) Liver abscess: Code(s): K75.0 - Abscess of liver Status: Chronic Assessment and Plan: Group of abscesses near the gallbladder on prior admission pretty much gone but has some new, smaller, abscesses more laterally in the right lobe. These are too small to drain and should be amenable to IV antibiotics. Continue Zosyn. Patient is afebrile and white blood cell count is normal this morning which is new. Plan Discussed trying to get enough calories to prevent weight loss and muscle loss. Ensure Enlive will give 1050 kcal per day, discussed getting at least 1 more full meal on top of this to increase caloric intake near goal. Subjective Subjective Date/Time Seen: 06/04/24 10:18 Interval history: Mild abdominal discomfort but no significant pain. Bowels moving. Eating a little better but still not great. Exam GI: Inspection: non-distended GI Palp: Yes Soft to palpation, No Tenderness to palpation present (GI) and No Guarding due to palpation present (GI) Auscultation: normal bowel sounds Objective Data Vital Signs Vital Signs: Vital Signs - 24 hr 06/03/24 10:59 06/03/24 11:15 06/03/24 11:30 Temperature 98.2 F 98.5 F 98.5 F Pulse Rate 65 72 71 Respiratory Rate 16 16 18 Blood Pressure 112/71 117/68 117/68 Pulse Oximetry 91 98 98 Oxygen Delivery 06/03/24 12:00 06/03/24 12:15 06/03/24 13:15 Temperature 97.5 F L 98.4 F Pulse Rate 73 81 78 Respiratory Rate 16 17 Blood Pressure 127/74 106/66 Pulse Oximetry 98 99 Oxygen Delivery 06/03/24 14:00 06/03/24 15:43 06/03/24 16:00 Temperature 98.5 F Pulse Rate 72 80 117 H Respiratory Rate 18 Blood Pressure 115/83 Pulse Oximetry 98 Oxygen Delivery 06/03/24 18:00 06/03/24 20:00 06/03/24 20:00 Temperature 98.1 F Pulse Rate 76 73 Respiratory Rate 18 Blood Pressure 139/79 Pulse Oximetry 99 Oxygen Delivery Room Air 06/03/24 20:00 06/03/24 22:00 06/04/24 00:00 Temperature Pulse Rate 80 73 Respiratory Rate Blood Pressure Pulse Oximetry Oxygen Delivery Room Air 06/04/24 00:00 06/04/24 00:00 06/04/24 02:00 Temperature 97.6 F Pulse Rate 74 82 81 Respiratory Rate 18 Blood Pressure 133/71 Pulse Oximetry 100 Oxygen Delivery 06/04/24 04:00 06/04/24 04:00 06/04/24 04:35 Temperature 97.6 F Pulse Rate 83 78 Respiratory Rate 18 Blood Pressure 127/75 Pulse Oximetry 100 Oxygen Delivery Room Air 06/04/24 06:00 06/04/24 08:05 Temperature 98.1 F Pulse Rate 82 89 Respiratory Rate 20 Blood Pressure 130/74 Pulse Oximetry 94 Oxygen Delivery Intake/Output Intake/Output: Intake & Output 06/01/24 06/02/24 06/03/24 06/04/24 23:59 23:59 23:59 23:59 Intake Total 1150 1315.0 1720.0 590 Output Total 250 Balance 1150 1065.0 1720.0 590 Meds/Results Medications: Active Medications Generic Name Dose Route Start Last Admin Trade Name Freq PRN Reason Stop Dose Admin Acetaminophen 650 mg 06/03/24 09:24 06/03/24 09:39 Acetaminophen 325 Mg Tablet PO 650 mg Q6H PRN Administration Mild Pain (1-3) or Fever Amlodipine Besylate 5 mg 06/03/24 09:00 06/04/24 08:28 Amlodipine Besylate 5 Mg Tablet PO 5 mg DAILY NINFA Administration Apixaban 10 mg 06/03/24 09:00 06/04/24 08:28 Apixaban 5 Mg Tablet PO 06/09/24 21:01 10 mg Q12HR NINFA Administration Apixaban 5 mg 06/10/24 09:00 Apixaban 5 Mg Tablet PO Q12HR [facility] Ferrous Sulfate 325 mg 06/03/24 09:00 06/04/24 08:28 Ferrous Sulfate [address] PO 325 mg BID NINFA Administration Piperacillin/Tazobactam/Dextrose 3.375 gm in 50 mls @ 100 mls/hr 06/01/24 18:00 06/04/24 06:10 Zosyn 3.375 Gm/Ns 50 Ml IVPB 100 mls/hr Q6H NINFA Administration Loperamide HCl 2 mg 06/03/24 13:43 Loperamide Hcl 2 Mg Capsule PO Q6H PRN Diarrhea Memantine 10 mg 06/03/24 09:00 06/04/24 08:28 Memantine 10 Mg Tablet PO 10 mg BID NINFA Administration Ondansetron HCl 4 mg 06/01/24 17:49 Ondansetron Inj 4 Mg/2 Ml Vial IV PUSH Q4H PRN Nausea Perflutren Lipid Microsphere 0 ml 06/01/24 19:10 Perflutren Lipid Microspheres 1.5 Ml Vial Diluted To 10 Ml Total Volume IV PUSH 06/04/24 19:10 ONCE PRN adequate visualization Protocol Sertraline HCl 100 mg 06/03/24 09:00 06/04/24 08:28 Sertraline Hcl 50 Mg Tablet PO 100 mg DAILY NINFA Administration Radiology Results: ITS Impressions Chest/Abdomen/Pelvis CTA 06/01/24 14:50 IMPRESSION: 1. Pulmonary emboli in the anterior, lateral and posterior basilar segments of the right lower lobe pulmonary arteries. No evidence of associated right heart strain. 2. Small bilateral posterior layering pleural effusions with associated dependent atelectasis. 3. Findings consistent with ongoing sigmoid diverticulitis with interval decompression of the left side of the 2 prior associated abscess cavities of which had interval drainage catheter placement and removal. The second abscess cavity is decrease in size but now contains primarily gas with only minimal amount of dependent fluid. There is however suggestion of small amount of intravenous gas extending peripherally from the abscess cavity. 4. Additional 1.2 cm deeper abscess cavity which contacts the dome of the bladder wall which raises concern for progression towards colovesical fistula. 5. Several new clusters of small intrahepatic abscesses in the right hepatic lobe but with interval improvement near resolution of the prior cluster of abscesses. 6. Small fat-containing right inguinal hernia. 7. A few new small <4 mm nodules in the right lung. If the patient is low risk for lung cancer, no follow-up is needed. If the patient is high risk (i.e., history of smoking or asbestos or significant radiation exposure), optional follow-up chest CT could be considered at 12 months. 8. Cardiomegaly. Venous Doppler Study 06/01/24 20:31 IMPRESSION: 1. No deep venous thrombosis. Labs Labs: Laboratory Results - last 24 hr 06/03/24 06/04/24 06/04/24 09:35 04:33 04:37 WBC 9.1 RBC 3.09 L Hgb 8.1 L Hct 26.7 L MCV 86.4 MCH 26.2 MCHC 30.3 L RDW 17.7 H Plt Count 417 H MPV 10.2 APTT 42.8 H Sodium 139 Potassium 3.2 L Chloride 110 H Carbon Dioxide 26 Anion Gap 3 L BUN 9 Creatinine 0.70 Estim Creat Clear Calc 74 Estimated GFR > 60 Glucose 89 Calcium 7.8 L Magnesium 1.8 Total Bilirubin 0.8 AST 17 ALT 8 Alkaline Phosphatase 67 Total Protein 6.0 L Albumin 2.6 L Blood Type O Positive Antibody Screen Negative Crossmatch See Detail
[2024-06-04 11:24] LABS: Potassium 4.7 mmol/L (3.4-5.0)
--- NOTE | 2024-06-04 13:05 | PM.IMPN ---
Progress Note: A&P Assessment and Plan (1) Pulmonary embolism on right: Code(s): I26.99 - Other pulmonary embolism without acute cor pulmonale Status: Acute (2) Diabetes mellitus: Code(s): E11.9 - Type 2 diabetes mellitus without complications Status: Acute (3) Hypokalemia: Code(s): E87.6 - Hypokalemia Status: Acute (4) Liver abscess: Code(s): K75.0 - Abscess of liver Status: Chronic (5) Severe protein-calorie malnutrition: Code(s): E43 - Unspecified severe protein-calorie malnutrition Status: Acute Assessment and Plan: Nutrition consult Plan #PE -possibly be provoked by sedentary lifestyle - Venous Doppler negative for DVT -discontinue Heparin drip -Started Eliquis 10 mg p.o. b.i.d. for 7 days and continue apixaban 5 mg p.o. b.i.d. for at least 6 months. -monitor H&H and platelets -no evidence of cancer -hemodynamically stable -will monitor vitals #Abscess of sigmoid colon due to diverticulitis -Evaluated by surgery. -Advise medical management -Started on Zosyn #Abscess of liver -Some new areas in the more lateral right lobe of the liver that are probably smaller abscesses -Not drainable -Monitor vitals and WBC -On Zosyn # Low appetite Nutrition consult Discouraged appetite stimulant due to PE Subjective Date/time seen: 06/04/24 13:05 Interval history: 06/04: Yesterday his HgB was 7.4 and stopped Heparin and transfused 1U PRBC,and Started Eliquis 10 mg p.o. b.i.d. for 7 days and continue apixaban 5 mg p.o. b.i.d. for at least 6 months. Today his HgB is 8.1 and advised to trend until tomorrow and if no significant drop,patient can discharge with instruction to follow with PCP and check his H and H in a week.As per surgery no abscess to drain at this time and advised to continue Zosyn 06/03:Patient heparin drip has been stopped. Started Eliquis 10 mg p.o. b.i.d. for 7 days and continue apixaban 5 mg p.o. b.i.d. for at least 6 months. Given 1 unit of packed RBC. Patient denies any complaint. Will continue Zosyn. 06/02: Patient was evaluated at the bedside denies any complaints. Nutrition is consult in regards to his decreased appetite. Negative for DVT. Patient is currently on heparin drip. His hemoglobin is dropped from 9-7.6. Currently we will continue the heparin drip and monitor his H&H. Due to the concerns of bleeding not switching to oral anticoagulants coagulant. Ordered H&H at 3:00 p.m shows 7.4/24.6 06/01: 79-year-old male with hypertension, hyperlipidemia, type 2 diabetes mellitus, gastroesophageal reflux disease, and mild dementia who presented to the emergency department for evaluation of low appetite. Patient was recently in the hospital and was treated for liver abscess and Diverticulitis of large intestine with perforation and abscess without bleeding. Patient was discharged with 2 drains and both was removed by as OP. Patient was evaluated at ED and he was able to provide a complete history. During his evaluation the patient the and daughter was present at the bedside. Both of them reports that he started eating very little. Patient reports he does not have that much appetite. Patient denies any abdominal pain or constipation. Patient is started on Zosyn and heparin drip. Even the CTA does not show no no evidence of heart strain will order echocardiogram and will monitor for active bleeding. Ordered lower extremity ultrasound to rule out DVT. Tomorrow if no evidence of DVT patient can be transitioned from Heparin drip to oral anticoagulant. Surgery already evaluated the patient, advised medical management. Review of Systems Review of Systems: All systems reviewed & are unremarkable except as noted in HPI and below (See HPI) ROS unobtainable: Yes unobtainable due to mental status Exam Narrative: APPEARANCE: Well appearing, no pain, no distress, well-nourished. HEAD: normocephalic, atraumatic. EYES: PERRLA/EOMI, conjunctivae clear. NOSE: Normal no drainage EARS:TMS clear with good light reflex. THROAT: Pharynx clear, no exudate. NECK: Supple. No adenopathy, no masses. RESPIRATORY: Airway patent, respirations nonlabored. Clear to auscultation bilaterally, no rales, rhonchi, wheezing. CARDIOVASCULAR: Regular rate and rhythm without murmurs rubs or gallops. ABDOMINAL: Left lower quadrant tenderness to palpation MUSCULOSKELETAL: Moves all extremities. Strength/ROM intact, No edema, No calf tenderness. NEURO: Alert. Cranial nerves II through XII intact. Good gait. Good coordination SKIN: Warm, dry. Normal Color Const: General: cooperative, comfortable, no acute distress, alert, awake, well groomed and thin Nutritional Appearance: thin HENMT: Head: normocephalic and atraumatic Mouth: Yes Normal oral and palatal mucosa present Eyes: Eyelids: eyelids normal Conjunctivae: conjunctivae normal Sclera: sclerae normal Pupils: Equal, round and reactive pupils present EOM: EOMs intact bilaterally Neck: Neck: normal visual inspection, no lymphadenopathy and nontender Resp: Effort & Inspection: normal respiratory effort Auscultation: clear to auscultation bilaterally Cardio: Rate: regular rate Rhythm: regular rhythm Heart sounds: no gallops, no murmurs and no rubs GI: Inspection: normal to inspection, non-distended, incision (Drain sites healing well), scaphoid and no visible herniation Auscultation: normal bowel sounds Skin: Lesions: no lesions Rashes: no rashes Neuro: General: no focal motor deficits and CN's II-XI intact bilaterally Cranial nerves: Yes Equal, round and reactive pupils present, Yes Bilaterally intact EOM present, Yes facial symmetry and Yes Midline tongue present Speech: normal speech Motor exam (neuro): 5/5 motor strength present throughout and Motor abnormalities not present Extrem: General: no clubbing, cyanosis or edema and edema Psych: Appearance: well kempt Speech and movement: Clear speech present Affect: Animated affect present Attitude: cooperative Insight: Limited insight present (Psych) Objective Data Vital Signs Vital Signs: Vital Signs - 24 hr 06/03/24 13:15 06/03/24 14:00 06/03/24 15:43 Temperature 98.4 F 98.5 F Pulse Rate 78 72 80 Respiratory Rate 17 18 Blood Pressure 106/66 115/83 Pulse Oximetry 99 98 Oxygen Delivery 06/03/24 16:00 06/03/24 18:00 06/03/24 20:00 Temperature Pulse Rate 117 H 76 Respiratory Rate Blood Pressure Pulse Oximetry Oxygen Delivery Room Air 06/03/24 20:00 06/03/24 20:00 06/03/24 22:00 Temperature 98.1 F Pulse Rate 73 80 73 Respiratory Rate 18 Blood Pressure 139/79 Pulse Oximetry 99 Oxygen Delivery 06/04/24 00:00 06/04/24 00:00 06/04/24 00:00 Temperature 97.6 F Pulse Rate 74 82 Respiratory Rate 18 Blood Pressure 133/71 Pulse Oximetry 100 Oxygen Delivery Room Air 06/04/24 02:00 06/04/24 04:00 06/04/24 04:00 Temperature 97.6 F Pulse Rate 81 83 78 Respiratory Rate 18 Blood Pressure 127/75 Pulse Oximetry 100 Oxygen Delivery 06/04/24 04:35 06/04/24 06:00 06/04/24 08:00 Temperature Pulse Rate 82 Respiratory Rate Blood Pressure Pulse Oximetry Oxygen Delivery Room Air Room Air 06/04/24 08:00 06/04/24 08:05 06/04/24 10:00 Temperature 98.1 F Pulse Rate 89 89 85 Respiratory Rate 20 Blood Pressure 130/74 Pulse Oximetry 94 Oxygen Delivery 06/04/24 11:46 06/04/24 12:24 Temperature 98.5 F Pulse Rate 86 Respiratory Rate 18 Blood Pressure 115/65 Pulse Oximetry 97 96 Oxygen Delivery Room Air Intake/Output Intake/Output: Intake & Output 06/01/24 06/02/24 06/03/24 06/04/24 23:59 23:59 23:59 23:59 Intake Total 1150 1315.0 1720.0 640 Output Total 250 1 Balance 1150 1065.0 1720.0 639 Meds/Results Medications: Active Medications Generic Name Dose Route Start Last Admin Trade Name Freq PRN Reason Stop Dose Admin Acetaminophen 650 mg 06/03/24 09:24 06/03/24 09:39 Acetaminophen 325 Mg Tablet PO 650 mg Q6H PRN Administration Mild Pain (1-3) or Fever Amlodipine Besylate 5 mg 06/03/24 09:00 06/04/24 08:28 Amlodipine Besylate 5 Mg Tablet PO 5 mg DAILY NINFA Administration Apixaban 10 mg 06/03/24 09:00 06/04/24 08:28 Apixaban 5 Mg Tablet PO 06/09/24 21:01 10 mg Q12HR NINFA Administration Apixaban 5 mg 06/10/24 09:00 Apixaban 5 Mg Tablet PO Q12HR NINFA Ferrous Sulfate 325 mg 06/03/24 09:00 06/04/24 08:28 Ferrous Sulfate [address] PO 325 mg BID NINFA Administration Piperacillin/Tazobactam/Dextrose 3.375 gm in 50 mls @ 100 mls/hr 06/01/24 18:00 06/04/24 12:06 Zosyn 3.375 Gm/Ns 50 Ml IVPB 100 mls/hr Q6H NINFA Administration Loperamide HCl 2 mg 06/03/24 13:43 Loperamide Hcl 2 Mg Capsule PO Q6H PRN Diarrhea Memantine 10 mg 06/03/24 09:00 06/04/24 08:28 Memantine 10 Mg Tablet PO 10 mg BID NINFA Administration Ondansetron HCl 4 mg 06/01/24 17:49 Ondansetron Inj 4 Mg/2 Ml Vial IV PUSH Q4H PRN Nausea Perflutren Lipid Microsphere 0 ml 06/01/24 19:10 Perflutren Lipid Microspheres 1.5 Ml Vial Diluted To 10 Ml Total Volume IV PUSH 06/04/24 19:10 ONCE PRN adequate visualization Protocol Sertraline HCl 100 mg 06/03/24 09:00 06/04/24 08:28 Sertraline Hcl 50 Mg Tablet PO 100 mg DAILY NINFA Administration Radiology Results: ITS Impressions Chest/Abdomen/Pelvis CTA 06/01/24 14:50 IMPRESSION: 1. Pulmonary emboli in the anterior, lateral and posterior basilar segments of the right lower lobe pulmonary arteries. No evidence of associated right heart strain. 2. Small bilateral posterior layering pleural effusions with associated dependent atelectasis. 3. Findings consistent with ongoing sigmoid diverticulitis with interval decompression of the left side of the 2 prior associated abscess cavities of which had interval drainage catheter placement and removal. The second abscess cavity is decrease in size but now contains primarily gas with only minimal amount of dependent fluid. There is however suggestion of small amount of intravenous gas extending peripherally from the abscess cavity. 4. Additional 1.2 cm deeper abscess cavity which contacts the dome of the bladder wall which raises concern for progression towards colovesical fistula. 5. Several new clusters of small intrahepatic abscesses in the right hepatic lobe but with interval improvement near resolution of the prior cluster of abscesses. 6. Small fat-containing right inguinal hernia. 7. A few new small <4 mm nodules in the right lung. If the patient is low risk for lung cancer, no follow-up is needed. If the patient is high risk (i.e., history of smoking or asbestos or significant radiation exposure), optional follow-up chest CT could be considered at 12 months. 8. Cardiomegaly. Venous Doppler Study 06/01/24 20:31 IMPRESSION: 1. No deep venous thrombosis. Labs Labs: Laboratory Results - last 24 hr 06/03/24 06/04/24 06/04/24 09:35 04:33 04:37 WBC 9.1 RBC 3.09 L Hgb 8.1 L Hct 26.7 L MCV 86.4 MCH 26.2 MCHC 30.3 L RDW 17.7 H Plt Count 417 H MPV 10.2 APTT 42.8 H Sodium 139 Potassium 3.2 L Chloride 110 H Carbon Dioxide 26 Anion Gap 3 L BUN 9 Creatinine 0.70 Estim Creat Clear Calc 74 Estimated GFR > 60 Glucose 89 Calcium 7.8 L Magnesium 1.8 Total Bilirubin 0.8 AST 17 ALT 8 Alkaline Phosphatase 67 Total Protein 6.0 L Albumin 2.6 L Crossmatch See Detail 06/04/24 11:05 WBC RBC Hgb Hct MCV MCH MCHC RDW Plt Count MPV APTT Sodium Potassium 4.7 Chloride Carbon Dioxide Anion Gap BUN Creatinine Estim Creat Clear Calc Estimated GFR Glucose Calcium Magnesium Total Bilirubin AST ALT Alkaline Phosphatase Total Protein Albumin Crossmatch Hospitalist MIPS Advance Care Plan I have confirmed that the patient's Advanced Care Plan is present, code status is documented, or surrogate decision maker is listed in patient medical record.: Yes Medication Reconciliation I have utilized all available resources to obtain, update and review the patients current medications (includes all prescriptions, OTC, herbals, cannabis, and nutritional supplements).: Yes
[2024-06-04 14:51] LABS: Potassium 3.9 mmol/L (3.4-5.0)
[2024-06-05] VITALS (9 sets, daily range): BP systolic 104–126; BP diastolic 58–75; PULSE 74–97; RESP 18; TEMP 36.8–37.1; O2SAT 97–100
[2024-06-05 05:24] LABS: Hematocrit 27.5 % (42.0-52.0); Hemoglobin 8.4 g/dL (14.0-18.0); Mean Corpuscular HGB Conc 30.5 g/dl (32-36); Mean Corpuscular Hemoglobin 26.5 pg (26-34); Mean Corpuscular Volume 86.8 fl (80-100); Platelet Count Result 387 k/mm3 (150-375); Red Blood Count 3.17 M/mm3 (4.6-6.20); Red Cell Distribution Width 17.9 % (11.5-14.5); White Blood Count 8.6 K/mm3 (4.5-10.0)
[2024-06-05 05:37] LABS: Alanine Aminotransferase 9 U/L (6-50); Albumin Level 2.5 g/dL (3.5-5.1); Alkaline Phosphatase 67 U/L (38-126); Anion Gap 0 mmol/L (4-12); Aspartate Amino Transferase 19 U/L (17-59); Bilirubin,Total 0.8 mg/dL (0.2-1.3); Blood Urea Nitrogen 9 mg/dL (9-20); Carbon Dioxide 29 mmol/L (22-30); Chloride 109 mmol/L (98-107); Estimated CRCL calculation 74 ml/min; Estimated Glomerular Filt Rate > 60; Glucose 96 mg/dL (65-110); Potassium 3.4 mmol/L (3.4-5.0); Sodium 138 mmol/L (137-145)
[2024-06-05] MEDS: PIPERACILLN/TAZ 3.375GM/NS50ML 3.375 GM/50 ML BAG IVPB ×2 (05:38→12:28)
[2024-06-05] MEDS: SERTRALINE HCL 50 MG TABLET 100 MG PO (09:09)
[2024-06-05] MEDS: MEMANTINE 10 MG TABLET PO (09:09)
[2024-06-05] MEDS: APIXABAN 5 MG TABLET 10 MG PO (09:09)
[2024-06-05] MEDS: amLODIPine BESYLATE 5 MG TABLET PO (09:09)
[2024-06-05] MEDS: FERROUS SULFATE 325 MG TABLET DR PO (09:09)
--- NOTE | 2024-06-05 12:18 | PM.DS ---
DS: Admitting Diagnosis Discharge Date 06/05/2024 Admitting Diagnosis Abdominal Pain DS: Discharge Diagnosis Discharge Diagnosis (1) Pulmonary embolism on right: Code(s): I26.99 - Other pulmonary embolism without acute cor pulmonale Status: Acute (2) Diabetes mellitus: Code(s): E11.9 - Type 2 diabetes mellitus without complications Status: Acute (3) Hypokalemia: Code(s): E87.6 - Hypokalemia Status: Acute (4) Liver abscess: Code(s): K75.0 - Abscess of liver Status: Chronic (5) Severe protein-calorie malnutrition: Code(s): E43 - Unspecified severe protein-calorie malnutrition Status: Acute Assessment and Plan: Nutrition consult Plan #PE -possibly be provoked by sedentary lifestyle - Venous Doppler negative for DVT -discontinue Heparin drip -continue eliquis at dc #Abscess of sigmoid colon due to diverticulitis -Evaluated by surgery. -Advise medical management -Started on Zosyn dc with oral augmentin and surgery md follow up #Abscess of liver -Some new areas in the more lateral right lobe of the liver that are probably smaller abscesses -Not drainable treated here with iv zosyn change to oral augmentin on dc # Low appetite Adviced to eat more DS: Summary Hospital Course Hospital Course: 06/05: ok to dc today on oral abx as per surgery MD 06/04: Yesterday his HgB was 7.4 and stopped Heparin and transfused 1U PRBC,and Started Eliquis 10 mg p.o. b.i.d. for 7 days and continue apixaban 5 mg p.o. b.i.d. for at least 6 months. Today his HgB is 8.1 and advised to trend until tomorrow and if no significant drop,patient can discharge with instruction to follow with PCP and check his H and H in a week.As per surgery no abscess to drain at this time and advised to continue Zosyn 06/03:Patient heparin drip has been stopped. Started Eliquis 10 mg p.o. b.i.d. for 7 days and continue apixaban 5 mg p.o. b.i.d. for at least 6 months. Given 1 unit of packed RBC. Patient denies any complaint. Will continue Zosyn. 06/02: Patient was evaluated at the bedside denies any complaints. Nutrition is consult in regards to his decreased appetite. Negative for DVT. Patient is currently on heparin drip. His hemoglobin is dropped from 9-7.6. Currently we will continue the heparin drip and monitor his H&H. Due to the concerns of bleeding not switching to oral anticoagulants coagulant. Ordered H&H at 3:00 p.m shows 7.4/24.6 06/01: 79-year-old male with hypertension, hyperlipidemia, type 2 diabetes mellitus, gastroesophageal reflux disease, and mild dementia who presented to the emergency department for evaluation of low appetite. Patient was recently in the hospital and was treated for liver abscess and Diverticulitis of large intestine with perforation and abscess without bleeding. Patient was discharged with 2 drains and both was removed by as OP. Patient was evaluated at ED and he was able to provide a complete history. During his evaluation the patient the and daughter was present at the bedside. Both of them reports that he started eating very little. Patient reports he does not have that much appetite. Patient denies any abdominal pain or constipation. Patient is started on Zosyn and heparin drip. Even the CTA does not show no no evidence of heart strain will order echocardiogram and will monitor for active bleeding. Ordered lower extremity ultrasound to rule out DVT. Tomorrow if no evidence of DVT patient can be transitioned from Heparin drip to oral anticoagulant. Surgery already evaluated the patient, advised medical management. Time Spent with Patient Time attestation: Total time spent providing and/or coordinating discharge services: Exam Narrative: APPEARANCE: Well appearing, no pain, no distress, well-nourished. HEAD: normocephalic, atraumatic. EYES: PERRLA/EOMI, conjunctivae clear. NOSE: Normal no drainage EARS:TMS clear with good light reflex. THROAT: Pharynx clear, no exudate. NECK: Supple. No adenopathy, no masses. RESPIRATORY: Airway patent, respirations nonlabored. Clear to auscultation bilaterally, no rales, rhonchi, wheezing. CARDIOVASCULAR: Regular rate and rhythm without murmurs rubs or gallops. ABDOMINAL: Left lower quadrant tenderness to palpation MUSCULOSKELETAL: Moves all extremities. Strength/ROM intact, No edema, No calf tenderness. NEURO: Alert. Cranial nerves II through XII intact. Good gait. Good coordination SKIN: Warm, dry. Normal Color DS: Data Data Completed and Pending Labs on day of discharge: Labs from last 24 hours 06/05/24 06/04/24 04:53 14:39 WBC 8.6 RBC 3.17 L Hgb 8.4 L Hct 27.5 L MCV 86.8 MCH 26.5 MCHC 30.5 L RDW 17.9 H Plt Count 387 H MPV 10.0 Sodium 138 Potassium 3.4 3.9 Chloride 109 H Carbon Dioxide 29 Anion Gap 0 L BUN 9 Creatinine 0.70 Estim Creat Clear Calc 74 Estimated GFR > 60 Glucose 96 Calcium 8.0 L Total Bilirubin 0.8 AST 19 ALT 9 Alkaline Phosphatase 67 Total Protein 6.0 L Albumin 2.5 L Preliminary micro results at discharge 06/01/24 17:42 Blood Culture - Preliminary Blood 06/01/24 17:43 Blood Culture - Preliminary Blood Discharge Plan Discharge Attending physician on discharge: Magui Hernandes Consulting providers: Segundo Sanches Discharging Clinician: Magui Hernandes Anticipated Discharge Date/Time: 06/05/24 12:13 Patient Disposition: Home, Self-Care Activity: as tolerated Diet: diabetic Discharge Instructions: eat better follow up with surgery md on dc Patient Instructions: Antibiotic Form, Pulmonary Embolism (GEN), Diverticulosis (GEN), Abscess (GEN), Diverticulitis Diet (GEN) Patient Language: Uzbek Stand Alone Forms: General Discharge Information Follow-up/Referrals: Cristi Mullen APRN [Primary Care Provider] - Segundo Sanches DO [Physician] - (follow up in 1 months time for liver abscess ) Discharge Medications: New loperamide 2 mg Capsule 2 mg PO Q6H PRN (Reason: Diarrhea) Qty: 20 0RF sertraline [Zoloft] 50 mg Tablet 100 mg PO DAILY Qty: 30 0RF Eliquis DVT-PE Treat 30D Start 5 mg (74 tabs) tablets,dose pack See Rx Instructions .ROUTE .COMPLEX Qty: 74 0RF Rx Instructions: orally per package directions follow starter pack Continued Excedrin Migraine 250-250-65 mg tablet 2 tablet PO BID Rx Instructions: STATES TAKING EXCEDRIN DAILY IN THE AM metronidazole 500 mg tablet 500 mg PO Q8H Qty: 30 2RF ferrous sulfate 325 mg (65 mg iron) Tablet,Delayed Release (Dr/Ec) 325 mg PO BID Qty: 60 0RF sertraline 100 mg tablet 100 mg PO DAILY Qty: 30 0RF amoxicillin-pot clavulanate 875-125 mg tablet 1 tablet PO Q12H Qty: 20 1RF amlodipine 5 mg tablet 5 mg PO DAILY Qty: 90 1RF omeprazole 40 mg capsule,delayed release(DR/EC) 40 mg PO DAILY Qty: 90 1RF memantine 10 mg tablet 10 mg PO BID Qty: 180 1RF Date of admission: 06/02/24 16:43 Primary Care Provider: Cristi Mullen Admitting Provider: Hardeep Velarde Attending physician on admission: Hardeep Velarde Condition: Stable
== END 2024-06-05 13:58 | disposition home or self-care (01) | DRG 175 ==
LOC: ANHED 13:48 → ANHIMU 18:52
PROVIDERS: Emergency Medicine; Admitting Provider General Practice; Emergency Provider Emergency Medicine; PCP Nurse Practitioner; Visit Provider Family Medicine
DX: I26.99 Other pulmonary embolism without acute cor pulmonale (principal); E43 Unspecified severe protein-calorie malnutrition; K75.0 Abscess of liver; K57.20 Diverticulitis of large intestine with perforation and abscess without bleeding; D50.9 Iron deficiency anemia, unspecified; E11.9 Type 2 diabetes mellitus without complications; E87.6 Hypokalemia; E78.5 Hyperlipidemia, unspecified; G30.9 Alzheimer's disease, unspecified; I10 Essential (primary) hypertension; K21.9 Gastro-esophageal reflux disease without esophagitis; N40.0 Benign prostatic hyperplasia without lower urinary tract symptoms; F02.80 Dementia in other diseases classified elsewhere, unspecified severity, without behavioral disturbance, psychotic disturbance, mood disturbance, and anxiety; Z79.82 Long term (current) use of aspirin; Z68.23 Body mass index [BMI] 23.0-23.9, adult; Z98.41 Cataract extraction status, right eye; Z98.42 Cataract extraction status, left eye; Z87.891 Personal history of nicotine dependence; Z79.01 Long term (current) use of anticoagulants
CPT/HCPCS: 36415; 36430; 71275; 74177; 80053; 81001; 83690; 83735; 84132; 85014; 85018; 85025; 85027; 85610; 85730; 86850; 86900; 86901; 86923; 87040; 87086; 93306; 93970; 96365; 96366; 99285; A9270; G0378; J1644; J2543; J3480; J7030; J7040; P9016; Q9967

== ENCOUNTER 2024-07-16 11:55 | Outpatient (CLI) | payer MEDICARE, OTHER, SELFPAY ==
--- NOTE | ~2024-07-16 | XR_ITS ---
CHEST RADIOGRAPH, PA AND LATERAL CLINICAL HISTORY: R05.9 - Cough, unspecified . COMPARISON: 08/02/2019 TECHNIQUE: PA and lateral views of the chest. FINDINGS The cardiomediastinal silhouette is unremarkable. The lungs are clear. IMPRESSION: No focal infiltrate or effusion. Reviewed, dictated and finalized at location [facility]. [facility]TER
--- OUTSIDE RECORDS SUMMARY | 2024-07-16 11:58 | XMS_ITS | Encounter Summary ---
Author Organization [facility] Address [address] [place] [address] Phone Care Team Providers Care [employer] Tr[employer] Worker Name Role Phone Gilbert Anderson MD Unavailable [phone] Paul Berkowitz DO Primary Care Provider Brock Ulrich MD Primary Care Provider [phone] Isabella Reddy MD Primary Care Provid er Encounter Details Date Type Department Care Team (Latest Contact Info) Description 08/02/2019 Orders Only [facility] ED Scanning, Provider Social History Tobacco Use Types Packs/Day Years Used Date Smoking Tobacco: Former Cigarettes Q uit: 1979 Smokeless Tobacco: Never Alcohol Use Standard Drinks/Week Comments Yes 1 (1 standard drink = 0.6 oz pur e alcohol) Sex and Gender Information Value Date Recorded Sex Assigned at Not on file 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 Gender Identity Male 03/31/2023 8:02 AM CDT Sexual Orientation Straight 03/31/2023 8: 02 AM CDT documented as of this encounter Plan of Treatment Not on file documented as of this encounter Procedures Procedure Name Priority Date/Time Associated Diagnosis Comments SCAN - RADIOLOGY/IMAGING 08/02/2019 documented in this encounter Results * SCAN - RADIOLOGY/IMAGING (08/02/2019) Anatomical Region Laterality Modality Other us Provider Scanning Final Result documented in this encounter Visit Diagnoses Not on filedocumented in this encounter Care Teams [employer] Worker Relationship Specialty Start Date End Date Paul Berkowitz DO PCP - General Internal Medicine 08/01/19 12/17/22 Brock Ulrich MD PCP - General Family Practice 12/18/22 06/22/24 Isabella Reddy MD [id number] [facility] [place] [address] PCP - General Geriatric Medicine 06/23/24 Gilbert Anderson MD Medical Oncologist/Infantry Unit Leader Hematology and Oncology 04/19/18 documented as of this encounter
--- OUTSIDE RECORDS SUMMARY | 2024-07-16 11:58 | XMS_ITS | Referral Summary ---
Author Organization [facility] Address [address] [place] [address] Phone Care Team Providers Care Fund Development Manager Name Role Phone Gilbert Anderosn MD Unavailable [phone] Isabella Reddy MD Primary Care Provid er Encounters Date Type Department Care Team Description 07/11/2024 Orders Only [address] First Floor [address] [place] [address] Richard Bonner RMA 06/23/2024 Telephone [facility] [address] [facility] [address] Medical Office Building 2 [place] [address] Tianna Prakash, TOMMY 06/01/2024 Orders Only [facility] ED Scanning, Provider 05/29/2024 Telephone [facility] [address] [place] [address] Kal Hunter, TOMMY 05/26/[address] First Floor [address] [place] [id number] Elke Vazquez 05/26/2024 Telephone [facility] Services [address] [place] [address] Erinn Bedolla, TOMMY 05/25/[address] First Floor [address] [place] [id number] Elke Vazquez 05/25/2024 Telephone [facility] [address] [facility] First Floor [address] [place] [id number] Mayela Kim, TOMMY 05/25/2024 Orders Only [facility] [address] [facility] First Floor [address] [place] [address] Mayela Kim, TOMMY Alzheimer's disease (HCC) (Primary Dx) 05/25/2024 Telephone [facility] Care Services [address] [place] [address] Erinn Bedolla RN 05/25/2024 10:30 AM BENCH PATTERNMAK[employer] Telemedicine [facility] [address] [facility] 6th [address] [place] [address] Anastasia Hyde NP Alzheimer's disease (HCC) (Primary Dx); Weakness; Physical deconditioning; Balance problem 05/09/2024 Orders Only [facility] Scanning, Provider 05/08/2024 Orders Only [facility] Scanning, Provider 04/28/2024 Orders Only [facility] ED Scanning, Provider from Last 3 Months Allergies Active Allergy Reactions Criticality Noted Date Comments Sulfa (Sulfonamide Antibiotics) Rash Medium Medications omeprazole (PriLOSEC) 40 mg capsule Take 1 capsule (40 mg total) by mouth daily Active sertraline (ZOLOFT) 100 mg tablet 08/10/2023 Active memantine (NAMENDA) 10 mg tablet 06/16/2023 Active Active Problems Problem Noted Date Diagnosed Date Physical deconditioning 05/25/2024 Balance problem 05/25/2024 Weakness 05/25/2024 Restlessness and agitation 04/03/2024 Alzheimer's disease 06/15/2023 Overview (05/25/2024): -Onset: 2019 -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, moderate WMD -Biomarkers: CSF ADEVL collected on 02/25/23 consistent with AD - [id number]: 0.060 (H), Ab42 573 (L), t-tau 350 (H), p-tau 34.6 (H) -Diagnosis: AD -Namenda/memantine 10 mg BID, sertraline/Zoloft 100 mg, did not want to pursue anti amyloid therapy -discontinued donepezil/Aricept d/t GI upset, diverticultis, wt loss Assessment & Plan (05/25/2024 10:54 AM BENCH PATTERNMAKER METAL): Stop donepezil/Aricept due to wt loss, diverticulitis, low appetite Continue Namenda/memantine 10 mg BID Physical therapy and occupational therapy at home Referred to Geriatrics for primary care ( request) Assessment & Plan (04/03/2024 9:07 AM CDT): -Onset: 2019 -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, moderate WMD -Biomarkers: CSF ADEVL collected on 02/25/23 consistent with AD - [id number]/abeta42: 0.060 (H), Ab42 573 (L), t-tau 350 (H), p-tau 34.6 (H) -Diagnosis: AD -Relevant medications: donepezil/Aricept 5 mg (GI upset with higher dose), Namenda/memantine 10 mg BID, sertraline/Zoloft 100 mg, did not want to pursue anti amyloid therapy PLAN: Hide car keys Consider increasing sertraline/Zoloft moving forward Increase physical activity, two community centers in [place] 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, 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 [facility] Please send referral to 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 benefits Iron deficiency anemia due to chronic blood loss 08/02/2019 Iron deficiency anemia secon genna to inadequate dietary iron intake 04/19/2018 Myocardial ischemia 05/01/2015 Hiatal hernia 04/26/2015 Immunizations Name Administration Dates Next Due Influenza, Trivalent, High D ose, Split, Preservative Free, Intramuscular 04/04/2019,03/27/2018,03/28/2017,04/14,04/07/2015 Influenza, Unspecified 01/30/2014,2012,04/07/2012,03/14 Pneumococcal Conjugate PCV 13 04/07/2015 Pneumococcal Polysaccharide PPV23 04/18/2019 Pneumococcal, Unspecified 04/20/2013 Tdap 04/18/2019 ZOSTER LIVE 03/19/2014,04/20/2012 Social History Tobacco Use Types Packs/Day Years Used Date Smoking Tobacco: Former Cigarettes Q uit: 1979 Smokeless Tobacco: Never Tobacco Cessation:Counseling Given: Not Answered Alcohol Use Standard Drinks/Week Comments Yes 1 (1 standard drink = 0.6 oz pur e alcohol) Sex and Gender Information Value Date Recorded Sex Assigned at Not on file Legal Sex Male 9:32 PM BENCH PATTERNMAKER METAL Gender Identity Male 03/31/2023 8:02 AM CDT Sexual Orientation Straight 03/31/2023 8: 02 AM CDT Last Filed Vital Signs Vital Sign Reading Time Taken Comments Blood Pressure 165/72 04/03/2024 8:01 AM CDT Pulse 73 04/03/2024 8:01 AM CDT Temperature 37.2 ??C (98.9 ??F) 04/03/2024 8:01 AM CD T Respiratory Rate 16 08/04/2019 12:00 PM BENCH PATTERNMAKER METAL Oxygen Saturation 95% 04/03/2024 8:01 AM CDT Inhaled Oxygen Concentration - - Weight 87.1 kg (192 lb) 04/03/2024 8:01 AM CDT Height 175.3 cm (5' 9 ) 04/03/2024 8:01 AM CDT Body Mass Index 28.35 04/03/2024 8:01 AM CDT Plan of Treatment Not on file Procedures Procedure Name Priority Date/Time Associated Diagnosis Comments SCAN - RADIOLOGY/IMAGING 06/01/2024 SCAN - RADIOLOGY/IMAGING 05/09/2024 SCAN - RADIOLOGY/IMAGING 05/08/2024 SCAN - RADIOLOGY/IMAGING 04/28/2024 from Last 3 Months Results * SCAN - RADIOLOGY/IMAGING (06/01/2024) Anatomical Region Laterality Modality Other us Provider Scanning Edited Result - Final * SCAN - RADIOLOGY/IMAGING (05/09/2024) Anatomical Region Laterality Modality Other us Provider Scanning Final Result * SCAN - RADIOLOGY/IMAGING (05/08/2024) Anatomical Region Laterality Modality Other us Provider Scanning Final Result * SCAN - RADIOLOGY/IMAGING (04/28/2024) Anatomical Region Laterality Modality Other us Provider Scanning Final Result from Last 3 Months Insurance MEDICARE [employer] Care Teams Fund Development Manager Relationship Specialty Start Date End Date Isabella Reddy MD [address] [facility] [address] [facility] [address] [place] [address] PCP - General Geriatric Medicine 06/23/24 Gilbert Anderson MD Medical Oncologist/Advance Scout Hematology and Oncology 04/19/18
--- OUTSIDE RECORDS SUMMARY | 2024-07-16 11:58 | XMS_ITS | Encounter Summary ---
Author Organization [facility] Address [address] [place] [address] Phone Care Team Providers Care Health And Safety Advisor Name Role Phone Gilbert Anderson MD Unavailable [phone] Paul Berkowitz DO Primary Care Provider Brock Ulrich MD Primary Care Provider [phone] Isabella Reddy MD Primary Care Provid er Encounter Details Date Type Department Care Team (Latest Contact Info) Description 12/13/2022 Orders Only [facility] ED Scanning, Provider Social History Tobacco Use Types Packs/Day Years Used Date Smoking Tobacco: Former Cigarettes Q uit: 1979 Smokeless Tobacco: Never Alcohol Use Standard Drinks/Week Comments Yes 1 (1 standard drink = 0.6 oz pur e alcohol) Sex and Gender Information Value Date Recorded Sex Assigned at Not on file Legal Sex Male 9:32 PM VAULT MANAGER Gender Identity Male 03/31/2023 8:02 AM CDT Sexual Orientation Straight 03/31/2023 8: 02 AM CDT documented as of this encounter Plan of Treatment Not on file documented as of this encounter Procedures Procedure Name Priority Date/Time Associated Diagnosis Comments SCAN - RADIOLOGY/IMAGING 12/13/2022 documented in this encounter Results * SCAN - RADIOLOGY/IMAGING (12/13/2022) Anatomical Region Laterality Modality Other us Provider Scanning Final Result documented in this encounter Visit Diagnoses Not on filedocumented in this encounter Care Teams Health And Safety Advisor Relationship Specialty Start Date End Date Paul Berkowitz DO PCP - General Internal Medicine 08/01/19 12/17/22 Brock Ulrich MD PCP - General Family Practice 12/18/22 06/22/24 Isabella Reddy MD [address] [facility] [address] [place] [address] PCP - General Geriatric Medicine 06/23/24 Gilbert Anderson MD Medical Oncologist/Flooring Professional Hematology and Oncology 04/19/18 documented as of this encounter
--- OUTSIDE RECORDS SUMMARY | 2024-07-16 11:58 | XMS_ITS | Encounter Summary ---
Author Organization [facility] Address [address] [place] [address] Phone Care Team Providers Care Activities Director Scouting Name Role Phone Gilbert Anderson MD Unavailable [phone] Isabella Reddy MD Primary Care Provid er Encounter Details Date Type Department Care Team (Late st Contact Info) Description 07/11/2024 Orders Only [facility] [address] [facility] [address] Floor [address] [place] [address] Richard Bonner RMA Social History Tobacco Use Types Packs/Day Years Used Date Smoking Tobacco: Former Cigarettes Q uit: 1979 Smokeless Tobacco: Never Alcohol Use Standard Drinks/Week Comments Yes 1 (1 standard drink = 0.6 oz pur e alcohol) Sex and Gender Information Value Date Recorded Sex Assigned at Not on file Legal Sex Male 9:32 PM DIRECTOR OF TRAINING Gender Identity Male 03/31/2023 8:02 AM CDT Sexual Orientation Straight 03/31/2023 8: 02 AM CDT documented as of this encounter Plan of Treatment Not on file documented as of this encounter Visit Diagnoses Not on filedocumented in this encounter Care Teams Activities Director Scouting Relationship Specialty Start Date End Date Isabella Reddy MD [address] [facility] DIV IM GENERAL MED, [address] [place] [address] PCP - General Geriatric Medicine 06/23/24 Gilbert Anderson MD Medical Oncologist/Gas Controller Hematology and Oncology 04/19/18 documented as of this encounter
--- OUTSIDE RECORDS SUMMARY | 2024-07-16 11:58 | XMS_ITS | Encounter Summary ---
Author Organization [facility] Address [address] [place] [address] Phone Care Team Providers Care Beauty Director Name Role Phone Gilbert Anderson MD Unavailable [phone] Brock Ulrich MD Primary Care Provider [phone] Isabella Reddy MD Primary Care Provid er Encounter Details Date Type Department Care Team (Latest Contact Info) Description 06/01/2024 Orders Only [facility] ED Scanning, Provider Social History Tobacco Use Types Packs/Day Years Used Date Smoking Tobacco: Former Cigarettes Q uit: 1979 Smokeless Tobacco: Never Alcohol Use Standard Drinks/Week Comments Yes 1 (1 standard drink = 0.6 oz pur e alcohol) Sex and Gender Information Value Date Recorded Sex Assigned at Not on file Legal Sex Male 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 Gender Identity Male 03/31/2023 8:02 AM CDT Sexual Orientation Straight 03/31/2023 8: 02 AM CDT documented as of this encounter Plan of Treatment Not on file documented as of this encounter Procedures Procedure Name Priority Date/Time Associated Diagnosis Comments SCAN - RADIOLOGY/IMAGING 06/01/2024 documented in this encounter Results * SCAN - RADIOLOGY/IMAGING (06/01/2024) Anatomical Region Laterality Modality Other us Provider Scanning Edited Result - Final documented in this encounter Visit Diagnoses Not on filedocumented in this encounter Care Teams Beauty Director Relationship Specialty Start Date End Date Brock Ulrich MD PCP - General Family Practice 12/18/22 06/22/24 Isabella Reddy MD [address] [facility] [address], [place] [address] PCP - General Geriatric Medicine 06/23/24 Gilbert Anderson MD Medical Oncologist/Weaver Needle Loom Hematology and Oncology 04/19/18 documented as of this encounter
--- OUTSIDE RECORDS SUMMARY | 2024-07-16 11:58 | XMS_ITS | Encounter Summary ---
Author Organization [facility] Address [address] [place] [address] Phone Care Team Providers Care Scientific Laboratory Supervisor Name Role Phone Gilbert Anderson MD Unavailable [phone] Brock Ulrich MD Primary Care Provider [phone] Isabella Reddy MD Primary Care Provid er Encounter Details Date Type Department Care Team (Latest Contact Info) Description 04/28/2024 Orders Only [facility] Scanning, Provider Social History Tobacco Use Types Packs/Day Years Used Date Smoking Tobacco: Former Cigarettes Q uit: 1979 Smokeless Tobacco: Never Alcohol Use Standard Drinks/Week Comments Yes 1 (1 standard drink = 0.6 oz pur e alcohol) Sex and Gender Information Value Date Recorded Sex Assigned at Not on file Legal Sex Male 9:32 PM FOOD SERVICE AIDE Gender Identity Male 03/31/2023 8:02 AM CDT Sexual Orientation Straight 03/31/2023 8: 02 AM CDT documented as of this encounter Plan of Treatment Not on file documented as of this encounter Procedures Procedure Name Priority Date/Time Associated Diagnosis Comments SCAN - RADIOLOGY/IMAGING 04/28/2024 documented in this encounter Results * SCAN - RADIOLOGY/IMAGING (04/28/2024) Anatomical Region Laterality Modality Other us Provider Scanning Final Result documented in this encounter Visit Diagnoses Not on filedocumented in this encounter Care Teams Scientific Laboratory Supervisor Relationship Specialty Start Date End Date Brock Ulrich MD PCP - General Family Practice 12/18/22 06/22/24 Isabella Reddy MD [address] [facility] [address] [address] PCP - General Geriatric Medicine 06/23/24 Gilbert Anderson MD Medical Oncologist/Recreation Instructor Hematology and Oncology 04/19/18 documented as of this encounter
--- OUTSIDE RECORDS SUMMARY | 2024-07-16 11:58 | XMS_ITS | Encounter Summary ---
Author Organization [facility] Address [address] [place] [address] Care Team Providers Care Telephone Service Adviser Name Role Phone Gilbert Anderson MD Unavailable [phone] Brock Ulrich MD Primary Care Provider [phone] Isabella Reddy MD Primary Care Provid er Encounter Details Date Type Department Care Team (Late st Contact Info) Description 05/26/2024 Telephone [facility] [address] [place] [address] Erinn Bedolla, RN Social History Tobacco Use Types Packs/Day Years Used Date Smoking Tobacco: Former Cigarettes Q uit: 1979 Smokeless Tobacco: Never Alcohol Use Standard Drinks/Week Comments Yes 1 (1 standard drink = 0.6 oz pur e alcohol) Sex and Gender Information Value Date Recorded Sex Assigned at Not on file Legal Sex Male 9:32 PM INFO ANALYST Gender Identity Male 03/31/2023 8:02 AM CDT Sexual Orientation Straight 03/31/2023 8: 02 AM CDT documented as of this encounter Plan of Treatment Not on file documented as of this encounter Visit Diagnoses Not on filedocumented in this encounter Care Teams Telephone Service Adviser Relationship Specialty Start Date End Date Brock Ulrich MD PCP - General Family Practice 12/18/22 06/22/24 Isabella Reddy MD [address] IM GENERAL MED, [place] [place] [address] PCP - General Geriatric Medicine 06/23/24 Gilbert Anderson MD Medical Oncologist/Athletic Director Hematology and Oncology 04/19/18 documented as of this encounter
--- OUTSIDE RECORDS SUMMARY | 2024-07-16 11:58 | XMS_ITS | Encounter Summary ---
Author Organization [facility] Address [address] [place] [address] Phone Care Team Providers Care Animal Impersonator Name Role Phone Gilbert Anderson MD Unavailable [phone] Paul Berkowitz DO Primary Care Provider [phone] Brock Ulrich MD Primary Care Provider [phone] Isabella Reddy MD Primary Care Provid er Encounter Details Date Type Department Care Team (Latest Contact Info) Description 05/30/2021 Orders Only [facility] Scanning, Provider Social History Tobacco Use Types Packs/Day Years Used Date Smoking Tobacco: Former Cigarettes Q uit: 1979 Smokeless Tobacco: Never Alcohol Use Standard Drinks/Week Comments Yes 1 (1 standard drink = 0.6 oz pur e alcohol) Sex and Gender Information Value Date Recorded Sex Assigned at Not on file Legal Sex Male 9:32 PM SUPERVISOR FACEPIECE LINE Gender Identity Male 03/31/2023 8:02 AM CDT Sexual Orientation Straight 03/31/2023 8: 02 AM CDT documented as of this encounter Plan of Treatment Not on file documented as of this encounter Procedures Procedure Name Priority Date/Time Associated Diagnosis Comments SCAN - RADIOLOGY/IMAGING 05/30/2021 documented in this encounter Results * SCAN - RADIOLOGY/IMAGING (05/30/2021) Anatomical Region Laterality Modality Other us Provider Scanning Final Result documented in this encounter Visit Diagnoses Not on filedocumented in this encounter Care Teams Animal Impersonator Relationship Specialty Start Date End Date Paul Berkowitz DO PCP - General Internal Medicine 08/01/19 12/17/22 Brock Ulrich MD PCP - General Family Practice 12/18/22 06/22/24 Isabella Reddy MD [address] [facility] [address] [place] [address] PCP - General Geriatric Medicine 06/23/24 Gilbert Anderson MD Medical Oncologist/Finished Goods Inspector Hematology and Oncology 04/19/18 documented as of this encounter
--- OUTSIDE RECORDS SUMMARY | 2024-07-16 11:58 | XMS_ITS | Encounter Summary ---
Author Organization [facility] Address [address] [place] [address] Phone Care Team Providers Care A Operator Name Role Phone Gilbert Anderson MD Unavailable Brock Ulrich MD Primary Care Provider [phone] Isabella Reddy MD Primary Care Provid er Encounter Details Date Type Department Care Team (Latest Contact Info) Description 05/08/2024 Orders Only [facility] Scanning, Provider Social History Tobacco Use Types Packs/Day Years Used Date Smoking Tobacco: Former Cigarettes Q uit: 1979 Smokeless Tobacco: Never Alcohol Use Standard Drinks/Week Comments Yes 1 (1 standard drink = 0.6 oz pur e alcohol) Sex and Gender Information Value Date Recorded Sex Assigned at Not on file Legal Sex Male 9:32 PM MAJOR 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 SUPERVISOR Gender Identity Male 03/31/2023 8:02 AM CDT Sexual Orientation Straight 03/31/2023 8: 02 AM CDT documented as of this encounter Plan of Treatment Not on file documented as of this encounter Procedures Procedure Name Priority Date/Time Associated Diagnosis Comments SCAN - RADIOLOGY/IMAGING 05/08/2024 documented in this encounter Results * SCAN - RADIOLOGY/IMAGING (05/08/2024) Anatomical Region Laterality Modality Other us Provider Scanning Final Result documented in this encounter Visit Diagnoses Not on filedocumented in this encounter Care Teams A Operator Relationship Specialty Start Date End Date Brock Ulrich MD PCP - General Family Practice 12/18/22 06/22/24 Isabella Reddy MD [address] [facility] [address], [place] [address] PCP - General Geriatric Medicine 06/23/24 Gilbert Anderson MD Medical Oncologist/Ironing Machine Operator Hematology and Oncology 04/19/18 documented as of this encounter
--- OUTSIDE RECORDS SUMMARY | 2024-07-16 11:58 | XMS_ITS | Clinical Summary ---
Author Organization [facility] Address [address] [place] [address] Phone Care Team Providers Care Sighter Name Role Phone Gilbert Anderson MD Unavailable [phone] Isabella Reddy MD Primary Care Provid er Allergies Active Allergy Reactions Criticality Noted Date [...] collected on 02/25/23 consistent with AD - [id number]/[id number]: 0.060 (H), Ab42 573 (L), t-tau 350 (H), p-tau 34.6 (H) -Diagnosis: AD -Namenda/memantine 10 mg BID, sertraline/Zoloft 100 mg, did not want to pursue anti amyloid therapy -discontinued donepezil/Aricept d/t GI upset, diverticultis, wt loss Assessment & Plan (05/25/2024 10:54 AM SOFTWARE PRODUCT MANAGER): Stop donepezil/Aricept due to wt loss, diverticulitis, low appetite Continue Namenda/memantine 10 mg BID Physical therapy and occupational therapy at home Referred to [facility] for primary care ( request) Assessment & Plan (04/03/2024 9:07 AM CDT): -Onset: 2019 -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, moderate WMD -Biomarkers: CSF ADEVL collected on 02/25/23 consistent with AD - lfwp506/abeta42: 0.060 (H), Ab42 573 (L), t-tau 350 (H), p-tau 34.6 (H) -Diagnosis: AD -Relevant medications: donepezil/Aricept 5 mg (GI upset with higher dose), Namenda/memantine 10 mg BID, sertraline/Zoloft 100 mg, did not want to pursue anti amyloid therapy PLAN: Hide car keys Consider increasing sertraline/Zoloft moving forward Increase physical activity, two community centers in [place] 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, 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 Please send referral to 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 [employer]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 Iron deficiency anemia due to chronic blood loss 08/02/2019 Iron deficiency anemia secon genna to inadequate dietary iron intake 04/19/2018 Myocardial ischemia 05/01/2015 Hiatal hernia 04/26/2015 Encounters Date Type Department Care Team Description 07/11/2024 Orders Only [facility] [address] [facility] First Floor [address] [place] [address] Richard Bonner RMA 06/23/2024 Telephone [facility] [address] [facility] [address] Medical Office Building 2 [place] [address] Tianna Prakash, TOMMY 06/01/2024 Orders Only [facility] Scanning, Provider 05/29/2024 Telephone [facility] Care Services [address] [place] [address] Kal HunterTOMMY 05/26/2024 Telephone [place] [address] [facility] First Floor [address] [place] [address] Elke Vazquez 05/26/2024 Telephone [facility] [address] [place] [address] Erinn Bedolla, TOMMY 05/25/2024 10:30 AM SOFTWARE PRODUCT MANAGER Telemedicine [facility] [address] [facility] 6th Floor [address] [place] [address] Anastasia Hyde NP Alzheimer's disease (HCC) (Primary Dx); Weakness; Physical deconditioning; Balance problem 05/25/[address] [place] [address] Elke Vazquez 05/25/[address] First Floor [address] [place] [address] Mayela Kim, TOMMY 05/25/2024 Orders Only [address] First Floor [address] [place] [address] Mayela Kim, TOMMY Alzheimer's disease (HCC) (Primary Dx) 05/25/2024 Telephone [facility] [address] [place] [address] Erinn Bedolla, TOMMY 05/09/2024 Orders Only [facility] Scanning, Provider 05/08/2024 Orders Only [facility] Scanning, Provider 04/28/2024 Orders Only [facility] Scanning, Provider from Last 3 Months Immunizations Name Administration Dates Next Due Influenza, Trivalent, High D ose, Split, Preservative Free, Intramuscular 04/04/2019,03/27/2018,03/28/2017,04/14,04/07/2015 Influenza, Unspecified 01/30/2014,2012,04/07/2012,03/14 Pneumococcal Conjugate PCV 13 04/07/2015 Pneumococcal Polysaccharide PPV23 04/18/2019 Pneumococcal, Unspecified 04/20/2013 Tdap 04/18/2019 ZOSTER LIVE 03/19/2014,04/20/2012 Surgical History Surgery Date Site/Laterality Comments MOHS SURGERY Chemosurgery (Mohs Micrographic Technique) - (Added by TW Conv) TN TRURL ELECTROSURG RESCJ PROSTATE BLEED COMPLETE Transurethral Resection Of Prostate (TURP) - (Added by TW Conv) TN UNLISTED PROCEDURE VASCUL AR INJECTION Arterial Catheterization - -cardiac cath in 2007 (Added by TW Conv) TN COLONOSCOPY FLX DX W/RALEIGH J SPEC WHEN PFRMD Colonoscopy (Fiberoptic) - (Added by TW Conv) TN ESOPHAGOGASTRODUODENOSCOP Y TRANSORAL DIAGNOSTIC Diagnostic Esophagogastroduodenoscopy - -2007 (Added by TW Conv) INGUINAL HERNIA REPAIR Inguinal Hernia Repair - (Added by TW Conv) HERNIA REPAIR COLONOSCOPY UPPER GASTROINTESTINAL ENDOSCOPY Medical History Medical History Date Comments Personal history of diseases of the blood and blood-forming organs and certain disorders involving the immune mechanism History of an emia - (Added by Conv) Personal history of malignan t melanoma of skin History of malignant melanom a of skin - (Added by TW Conv) Personal history of other di seases of the circulatory system History of hypertension - (A dded by TW Conv) Enlarged prostate without lo wer urinary tract symptoms (luts) BPH (benign prostatic hyperp lasia) - (Added by TW Conv) Anemia Skin cancer Hypertension Diverticulitis Weight loss Family History Medical History Relation Name Comments Liver cancer Father Family history of liver cancer - (Added by TW Conv) Melanoma Father Family history of malignant melanoma - (Added by Conv) Heart disease Mother Relation Name Status Comments Father Mother Social History Tobacco Use Types Packs/Day Years Used Date Smoking Tobacco: Former Cigarettes Q uit: 1979 Smokeless Tobacco: Never Tobacco Cessation:Counseling Given: Not Answered Alcohol Use Standard Drinks/Week Comments Yes 1 (1 standard drink = 0.6 oz pur e alcohol) Sex and Gender Information Value Date Recorded Sex Assigned at Not on file Legal Sex Male 9:32 PM SOFTWARE PRODUCT MANAGER Gender Identity Male 03/31/2023 8:02 AM CDT Sexual Orientation Straight 03/31/2023 8: 02 AM CDT Obstetrics History Last Filed Vital Signs Vital Sign Reading Time Taken Comments Blood Pressure 165/72 04/03/2024 8:01 AM CDT Pulse 73 04/03/2024 8:01 AM CDT Temperature 37.2 ??C (98.9 ??F) 04/03/2024 8:01 AM CD T Respiratory Rate 16 08/04/2019 12:00 PM SOFTWARE PRODUCT MANAGER Oxygen Saturation 95% 04/03/2024 8:01 AM CDT Inhaled Oxygen Concentration - - Weight 87.1 kg (192 lb) 04/03/2024 8:01 AM CDT Height 175.3 cm (5' 9 ) 04/03/2024 8:01 AM CDT Body Mass Index 28.35 04/03/2024 8:01 AM CDT Plan of Treatment Health Maintenance Due Date Last Done Comments Depression Screening 1943 Fall Risk Assessment 1943 Hepatitis B Screening 1961 Abdominal Aortic Aneurysm (A AA) Screen 01/13/2008 Well Visit 65+ 01/13/2008 Zoster Vaccine (2 of 3) 05/14/2014 03/19/2014, 04/20 Influenza Vaccine (#1) 2024 9, 03/28/2018, 03/27/2018, Additional history exists DTaP/Tdap/Td Vaccine (2 - Td or Tdap) 04/18/2029 04/18/2019 Pneumococcal vaccine 65+ Completed 019, 04/07/2015, 04/20/2013 Procedures Procedure Name Priority Date/Time Associated Diagnosis [...] Result from Last 3 Months Insurance MEDICARE [employer] MEDICARE [id number] Care Teams Sighter Relationship Specialty Start Date End Date Isabella Reddy MD [address] [facility] DIV GENERAL MED, [facility] [address] [place] [address] PCP - General Geriatric Medicine 06/23/24 Gilbert Anderson MD Medical Oncologist/Head Swamper Hematology and Oncology 04/19/18
--- OUTSIDE RECORDS SUMMARY | 2024-07-16 11:58 | XMS_ITS | Encounter Summary ---
Author Organization [facility] Address [address] [place] [address] Phone Care Team Providers Care Treasurer Name Role Phone Gilbert Anderson MD Unavailable [phone] Brock Ulrich MD Primary Care Provider [phone] Isabella Reddy MD Primary Care Provid er Encounter Details Date Type Department Care Team (Latest Contact Info) Description 05/09/2024 Orders Only [facility] Scanning, Provider Social History Tobacco Use Types Packs/Day Years Used Date Smoking Tobacco: Former Cigarettes Q uit: 1979 Smokeless Tobacco: Never Alcohol Use Standard Drinks/Week Comments Yes 1 (1 standard drink = 0.6 oz pur e alcohol) Sex and Gender Information Value Date Recorded Sex Assigned at Not on file Legal Sex Male 9:32 PM PILLING MACHINE OPERATOR Gender Identity Male 03/31/2023 8:02 AM CDT Sexual Orientation Straight 03/31/2023 8: 02 AM CDT documented as of this encounter Plan of Treatment Not on file documented as of this encounter Procedures Procedure Name Priority Date/Time Associated Diagnosis Comments SCAN - RADIOLOGY/IMAGING 05/09/2024 documented in this encounter Results * SCAN - RADIOLOGY/IMAGING (05/09/2024) Anatomical Region Laterality Modality Other us Provider Scanning Final Result documented in this encounter Visit Diagnoses Not on filedocumented in this encounter Care Teams Treasurer Relationship Specialty Start Date End Date Brock Ulrich MD PCP - General Family Practice 12/18/22 06/22/24 Isabella Reddy MD [address] [facility] [address] [address] PCP - General Geriatric Medicine 06/23/24 Gilbert Anderson MD Medical Oncologist/Rn Medical Surgical Hematology and Oncology 04/19/18 documented as of this encounter
--- OUTSIDE RECORDS SUMMARY | 2024-07-16 11:58 | XMS_ITS | Encounter Summary ---
Author Organization [facility] Address [address] [place] [address] Phone Care Team Providers Care Stamping Bench Die Maker Name Role Phone Gilbert Anderson MD Unavailable [phone] Brock Ulrich MD Primary Care Provider [phone] Isabella Reddy MD Primary Care Provid er Encounter Details Date Type Department Care Team (Latest Contact Info) Description 01/04/2024 Orders Only [facility] Scanning, Provider Social History Tobacco Use Types Packs/Day Years Used Date Smoking Tobacco: Former Cigarettes Q uit: 1979 Smokeless Tobacco: Never Alcohol Use Standard Drinks/Week Comments Yes 1 (1 standard drink = 0.6 oz pur e alcohol) Sex and Gender Information Value Date Recorded Sex Assigned at Not on file Legal Sex Male 9:32 PM DIRECTOR MEDICAL WRITING Gender Identity Male 03/31/2023 8:02 AM CDT Sexual Orientation Straight 03/31/2023 8: 02 AM CDT documented as of this encounter Plan of Treatment Not on file documented as of this encounter Procedures Procedure Name Priority Date/Time Associated Diagnosis Comments SCAN - RADIOLOGY/IMAGING 01/04/2024 documented in this encounter Results * SCAN - RADIOLOGY/IMAGING (01/04/2024) Anatomical Region Laterality Modality Other us Provider Scanning Final Result documented in this encounter Visit Diagnoses Not on filedocumented in this encounter Care Teams Stamping Bench Die Maker Relationship Specialty Start Date End Date Brock Ulrich MD PCP - General Family Practice 12/18/22 06/22/24 Isabella Reddy MD [address] [facility], [facility] [address] [address] PCP - General Geriatric Medicine 06/23/24 Gilbert Anderson MD Medical Oncologist/Cellophane Worker Hematology and Oncology 04/19/18 documented as of this encounter
== END 2024-07-16 11:56 | disposition home or self-care (01) ==
PROVIDERS: PCP Nurse Practitioner; Visit Provider Nurse Practitioner
DX: R05.9 Cough, unspecified (principal)
CPT/HCPCS: 71046

== ENCOUNTER 2024-07-25 18:29 | Emergency (ER) | payer MEDICARE, OTHER, SELFPAY ==
--- NOTE | ~2024-07-25 | CT_ITS ---
History: Ground-level fall PROCEDURE: CT cervical spine without intravenous contrast. COMPARISON: None TECHNIQUE: Multiple contiguous axial images of the cervical spine were performed without the administration of i ntravenous contrast. DLP: 240 mGy-cm FINDINGS: Significant degenerative disease is identified within the cervical spine, primarily at the levels of C5/C6 and C6/C7. No acute fractures are present. The bilateral lung apices are unremarkable. No soft tissue abnormality is present. The airway is patent. Impression: Degenerative disease, without acute fracture. Reviewed, dictated and finalized at location A. OPHYSIOLOGICAL TECHNICIAN Impression: Degenerative disease, without acute fracture.
--- NOTE | ~2024-07-25 | CT_ITS ---
History: Ground-level fall PROCEDURE: CT head without contrast. COMPARISON: Reference is made to an MRI examination of the brain performed 12/13/2022 TECHNIQUE: Axial imaging of the head performed from the skull base to the vertex without IV contrast. Sagittal a nd coronal reformations obtained. DLP: 681 mGy-cm FINDINGS: The ventricles are enlarged. The dilatation of the ventricles is proportional to the degree of sulcal prominence, not uncommon in the senescent brain. Decreased attenuation is identified within the periventricular white matter, likely secondary to micr ovascular ischemic disease, in a patient of this age. There is no mass, mass effect or midline shift. There is no abnormal extra-axial fluid collection or intracranial hemorrhage. Visualized paranasal sinuses are clear. The mastoid air cells are well aerated. No acute displaced fractures within the overlying cranium. Impression: No acute intracranial hemorrhage or suspicious mass effect. Reviewed, dictated and finalized at location A. USION DIE COORDINATOR Impression: No acute intracranial hemorrhage or suspicious mass effect.
--- OUTSIDE RECORDS SUMMARY | 2024-07-25 18:31 | XMS_ITS | Encounter Summary ---
Author Organization [facility] Address [address] [place] [address] Phone Care Team Providers Care Customer Loyalty Representative Name Role Phone Gilbert Anderson MD Unavailable [phone] Brock Ulrich MD Primary Care Provider [phone] Isabella Reddy MD Primary Care Provid er [...] on file Legal Sex Male 9:32 PM MEDICAL RECORDS FIELD TECHNICIAN Gender Identity Male 03/31/2023 8:02 AM CDT [...] on filedocumented in this encounter Care Teams Customer Loyalty Representative Relationship Specialty Start Date End Date Brock Ulrich MD PCP - General Family Practice 12/18/22 06/22/24 Isabella Reddy MD [address] [facility], [facility] [address] [address] PCP - General Geriatric Medicine 06/23/24 Gilbert Anderson MD Medical Oncologist/Family Nurse Hematology and Oncology 04/19/18 documented as of this encounter
--- OUTSIDE RECORDS SUMMARY | 2024-07-25 18:31 | XMS_ITS | Encounter Summary ---
Author Organization [facility] Address [address] [place] [address] Phone Care Team Providers Care Metal Organ Pipe Maker Name Role Phone Gilbert Anderson MD Unavailable [phone] Isabella Reddy MD Primary Care Provid er Encounter Details Date Type Department Care Team (Late st Contact Info) Description 07/25/2024 Documentation [place] [id number] [facility] First Floor [address] [place] [address] Halina Fontenot CNS Social History Tobacco Use Types Packs/Day Years Used Date Smoking Tobacco: Former Cigarettes Q uit: 1979 Smokeless Tobacco: Never Alcohol Use Standard Drinks/Week Comments Yes 1 (1 standard drink = 0.6 oz pur e alcohol) Sex and Gender Information Value Date Recorded Sex Assigned at Not on file Legal Sex Male 9:32 PM BEAD FORMING MACHINE SET UP OPERATOR Gender Identity Male 03/31/2023 8:02 AM CDT Sexual Orientation Straight 03/31/2023 8: 02 AM CDT documented as of this encounter Progress Notes * Halina Fontenot CNS - 07/25/2024 2:42 PM CST Physician Assessment Certification faxed to [facility]: Belia FORMING MACHINE SET UP OPERATOR documented in this encounter Plan of Treatment Not on file documented as of this encounter Visit Diagnoses Not on filedocumented in this encounter Care Teams Metal Organ Pipe Maker Relationship Specialty Start Date End Date Isabella Reddy MD [address] [facility] [address] [place] [address] PCP - General Geriatric Medicine 06/23/24 Gilbert Anderson MD Medical Oncologist/Shearer Screen Measurer And Trimmer Hematology and Oncology 04/19/18 documented as of this encounter
--- OUTSIDE RECORDS SUMMARY | 2024-07-25 18:31 | XMS_ITS | Encounter Summary ---
Author Organization [facility] Address [address] [place] [address] Phone Care Team Providers Care Sales Development Representative Name Role Phone Gilbert Anderson MD Unavailable [phone] Paul Berkowitz DO Primary Care Provider [phone] Brock Ulrich MD Primary Care Provider [phone] Isabella Reddy MD Primary Care Provid er [...] on file Legal Sex Male 9:32 PM GRAPE GROWER Gender Identity Male 03/31/2023 8:02 AM CDT [...] on filedocumented in this encounter Care Teams Sales Development Representative Relationship Specialty Start Date End Date Paul Berkowitz DO PCP - General Internal Medicine 08/01/19 12/17/22 Brock Ulrich MD PCP - General Family Practice 12/18/22 06/22/24 Isabella Reddy MD [address] [facility] [address] [place] [address] PCP - General Geriatric Medicine 06/23/24 Gilbert Anderson MD Medical Oncologist/Turret Lathe Tender Hematology and Oncology 04/19/18 documented as of this encounter
--- OUTSIDE RECORDS SUMMARY | 2024-07-25 18:31 | XMS_ITS | Encounter Summary ---
Author Organization [facility] Address [address] [place] [address] Phone Care Team Providers Care Assistant Store Leader Name Role Phone Gilbert Andesron MD Unavailable [phone] Brock Ulrich MD Primary Care Provider [phone] Isabella Reddy MD Primary Care Provid er [...] on file Legal Sex Male 9:32 PM FUEL STORAGE TECHNICIAN Gender Identity Male 03/31/2023 8:02 AM [...] on filedocumented in this encounter Care Teams Assistant Store Leader Relationship Specialty Start Date End Date Brock Ulrich MD PCP - General Family Practice 12/18/22 06/22/24 Isabella Reddy MD [address] [facility], [facility] [address] [address] PCP - General Geriatric Medicine 06/23/24 Gilbert Anderson MD Medical Oncologist/Pipeline Superintendent Division Hematology and Oncology 04/19/18 documented as of this encounter
--- OUTSIDE RECORDS SUMMARY | 2024-07-25 18:31 | XMS_ITS | Encounter Summary ---
Author Organization [facility] Address [address] [place] [address] Phone Care Team Providers Care Manufacturing Finance Manager Name Role Phone Gilbert Anderson MD Unavailable [phone] Brock Ulrich MD Primary Care Provider [phone] Isabella Reddy MD Primary Care Provid er [...] on file Legal Sex Male 9:32 PM INVENTORY ADMINISTRATOR Gender Identity Male 03/31/2023 8:02 AM CDT [...] on filedocumented in this encounter Care Teams Manufacturing Finance Manager Relationship Specialty Start Date End Date Brock Ulrich MD PCP - General Family Practice 12/18/22 06/22/24 Isabella Reddy MD [address] [facility], [facility] [address] [address] PCP - General Geriatric Medicine 06/23/24 Gilbert Anderson MD Medical Oncologist/Unattended Ground Sensor Specialist Hematology and Oncology 04/19/18 documented as of this encounter
--- OUTSIDE RECORDS SUMMARY | 2024-07-25 18:31 | XMS_ITS | Encounter Summary ---
Author Organization [facility] Address [address] [place] [address] Phone Care Team Providers Care Hazard Mitigation Officer Name Role Phone Gilbert Anderson MD Unavailable [phone] Paul Berkowitz DO Primary Care Provider [phone] Brock Ulrich MD Primary Care Provider [phone] Isabella Reddy MD Primary Care Provid er [...] on file Legal Sex Male 9:32 PM CRAB FISHER Gender Identity Male 03/31/2023 8:02 AM CDT [...] on filedocumented in this encounter Care Teams Hazard Mitigation Officer Relationship Specialty Start Date End Date Paul Berkowitz DO PCP - General Internal Medicine 08/01/19 12/17/22 Brock Ulrich MD PCP - General Family Practice 12/18/22 06/22/24 Isabella Reddy MD [address] [facility] [address] [place] [address] PCP - General Geriatric Medicine 06/23/24 Gilbert Anderson MD Medical Oncologist/Missionary Coordinator Hematology and Oncology 04/19/18 documented as of this encounter
--- OUTSIDE RECORDS SUMMARY | 2024-07-25 18:31 | XMS_ITS | Referral Summary ---
Author Organization [facility] Address [address] [facility] [place] [address] Phone Care Team Providers Care Child Welfare Assistant Name Role Phone Gilbert Anderson MD Unavailable [phone] Isabella Reddy MD Primary Care Provid er Encounters Date Type Department Care Team Description 07/25/2024 Documentation [place] [id number] [facility] First Floor [address] [place] [address] Halina Fontenot, ASBESTOS SIDING INSTALLER 07/11/2024 Orders Only [address] Floor [address] [place] [address] Richard Bonner, RMA 06/23/2024 Telephone [facility] [address] [facility] [address] Medical Office Building [address] [place] [address] Tianna Prakash, TOMMY 06/01/2024 Orders Only [facility] ED Scanning, Provider 05/29/2024 Telephone [facility] Home Care Services [address] [place] [address] Kal Hunter, TOMMY 05/26/[address] First Floor [address] [place] [address] Elke Vazquez 05/26/2024 Telephone [facility] Home Care Services [address] [place] [address] Erinn Bedolla, TOMMY 05/25/2024 Documentation [place] [id number] [facility] First Floor [address] [place] [address] Vin Vazqueznatacha 05/25/2024 [address] [facility] [address] [facility] First Floor [address] [place] [address] Mayela Kim RN 05/25/2024 Orders Only [facility] [address] [facility] First Floor [address] [place] [address] Mayela Kim, TOMMY Alzheimer's disease (HCC) (Primary Dx) 05/25/2024 Telephone [facility] Home Care Services [address] [place] [address] Erinn Bedolla RN 05/25/2024 10:30 AM AUTOMATIC HEMMER Telemedicine [facility] [address] [facility] 6th Floor [address] [place] [address] Anastasia Hyde NP Alzheimer's disease (HCC) (Primary [...] collected on 02/25/23 consistent with AD - [id number]/abeta42: 0.060 (H), Ab42 573 (L), t-tau 350 (H), p-tau 34.6 (H) -Diagnosis: AD -Namenda/memantine 10 mg BID, sertraline/Zoloft 100 mg, did not want to pursue anti amyloid therapy -discontinued donepezil/Aricept d/t GI upset, diverticultis, wt loss Assessment & Plan (05/25/2024 10:54 AM AUTOMATIC HEMMER): Stop donepezil/Aricept due to wt loss, diverticulitis, low appetite Continue Namenda/memantine 10 mg BID Physical therapy and occupational therapy at home Referred to Geriatrics for primary care ( request) Assessment & Plan (04/03/2024 9:07 AM CDT): -Onset: 2019 -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, moderate WMD -Biomarkers: CSF ADEVL collected on 02/25/23 consistent with AD - [id number]/abeta42: 0.060 (H), Ab42 573 (L), t-tau 350 (H), p-tau 34.6 (H) -Diagnosis: AD -Relevant medications: donepezil/Aricept 5 mg (GI upset with higher dose), Namenda/memantine 10 mg BID, sertraline/Zoloft 100 mg, did not want to pursue anti amyloid therapy PLAN: Hide car keys Consider increasing sertraline/Zoloft moving forward Increase physical activity, two community centers [facility] 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, 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 Please send referral to Independent [...] on file Legal Sex Male 9:32 PM AUTOMATIC HEMMER Gender Identity Male 03/31/2023 8:02 AM CDT Sexual Orientation Straight 03/31/2023 8: 02 AM CDT Last Filed Vital Signs Vital Sign Reading Time Taken Comments Blood Pressure 165/72 04/03/2024 8:01 AM CDT Pulse 73 04/03/2024 8:01 AM CDT Temperature 37.2 C (98.9 F) 04/03/2024 8:01 AM CDT Respiratory Rate 16 08/04/2019 12:00 PM AUTOMATIC HEMMER Oxygen Saturation 95% 04/03/2024 8:01 AM CDT [...] RADIOLOGY/IMAGING (04/28/2024) Anatomical Region Laterality Modality Other Provider Scanning Final Result from Last 3 Months Insurance MEDICARE [employer] MEDICARE [email or web address] Care Teams Child Welfare Assistant Relationship Specialty Start Date End Date Isabella Reddy MD [address] [facility] DIV [facility] [address] [place] [address] PCP - General Geriatric Medicine 06/23/24 Gilbert Anderson MD Medical Oncologist/Welder Apprentice Hematology and Oncology 04/19/18
--- OUTSIDE RECORDS SUMMARY | 2024-07-25 18:31 | XMS_ITS | Encounter Summary ---
Author Organization [facility] Healthcare Address [address] [place] [address] Care Team Providers Care Websphere Commerce Consultant Name Role Phone Gilbert Anderson MD Unavailable [phone] Brock Ulrich MD Primary Care Provider [phone] Isabella Reddy MD Primary Care Provid er Encounter Details Date Type Department Care Team (Late st Contact Info) Description 05/26/2024 Telephone [facility] Home Care Services [address] [place] [address] Erinn Bedolla, RN Social History Tobacco Use Types Packs/Day Years Used Date Smoking Tobacco: Former Cigarettes Q uit: 1979 Smokeless Tobacco: Never Alcohol Use Standard Drinks/Week Comments Yes 1 (1 standard drink = 0.6 oz pur e alcohol) Sex and Gender Information Value Date Recorded Sex Assigned at Not on file Legal Sex Male 9:32 PM SCHOOL CROSSING GUARD Gender Identity Male 03/31/2023 8:02 AM CDT Sexual Orientation Straight 03/31/2023 8: 02 AM CDT documented as of this encounter Plan of Treatment Not on file documented as of this encounter Visit Diagnoses Not on filedocumented in this encounter Care Teams Websphere Commerce Consultant Relationship Specialty Start Date End Date Brock Ulrich MD PCP - General Family Practice 12/18/22 06/22/24 Isabella Reddy MD [address] [facility] DIV IM GENERAL MED, [address] [place] [address] PCP - General Geriatric Medicine 06/23/24 Gilbert Anderson MD Medical Oncologist/Rn Pacu Hematology and Oncology 04/19/18 documented as of this encounter
--- OUTSIDE RECORDS SUMMARY | 2024-07-25 18:31 | XMS_ITS | Encounter Summary ---
Author Organization [facility] Address [address] [place] [address] Phone Care Team Providers Care Facility Engineer Name Role Phone Gilbert Anderson MD Unavailable [phone] Brock Ulrich MD Primary Care Provider [phone] Isabella Reddy MD Primary Care Provid er [...] on file Legal Sex Male 9:32 PM SHANK FAKER Gender Identity Male 03/31/2023 8:02 AM CDT [...] on filedocumented in this encounter Care Teams Facility Engineer Relationship Specialty Start Date End Date Brock Ulrich MD PCP - General Family Practice 12/18/22 06/22/24 Isabella Reddy MD [address] [facility] [address], [place] [address] PCP - General Geriatric Medicine 06/23/24 Gilbert Anderson MD Medical Oncologist/Tobacco Drummer Hematology and Oncology 04/19/18 documented as of this encounter
--- OUTSIDE RECORDS SUMMARY | 2024-07-25 18:31 | XMS_ITS | Encounter Summary ---
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
--- OUTSIDE RECORDS SUMMARY | 2024-07-25 18:31 | XMS_ITS | Clinical Summary ---
Author Organization [facility] Address [address] [facility] [place] [address] Phone Care Team Providers Care Electrical Engineering Teacher Name Role Phone Gilbert Anderson MD Unavailable [phone] Isabella Reddy MD Primary Care Provid er [...] collected on 02/25/23 consistent with AD - [id number]/[id number]: 0.060 (H), Ab42 573 (L), t-tau 350 (H), p-tau 34.6 (H) -Diagnosis: AD -Namenda/memantine 10 mg BID, sertraline/Zoloft 100 mg, did not want to pursue anti amyloid therapy -discontinued donepezil/Aricept d/t GI upset, diverticultis, wt loss Assessment & Plan (05/25/2024 10:54 AM SUPERVISOR TRAIN OPERATIONS): Stop donepezil/Aricept due to wt loss, diverticulitis, low appetite Continue Namenda/memantine 10 mg BID Physical therapy and occupational therapy at home Referred to [facility] for primary care ( request) Assessment & Plan (04/03/2024 9:07 AM CDT): -Onset: 2019 -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, moderate WMD -Biomarkers: CSF ADEVL collected on 02/25/23 consistent with AD - hrio716/abeta42: 0.060 (H), Ab42 573 (L), t-tau 350 (H), p-tau 34.6 (H) -Diagnosis: AD -Relevant medications: donepezil/Aricept 5 mg (GI upset with higher dose), Namenda/memantine 10 mg BID, sertraline/Zoloft 100 mg, did not want to pursue anti amyloid therapy PLAN: Hide car keys Consider increasing sertraline/Zoloft moving forward Increase physical activity, two community centers in [place] 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, counseling for [employer] [facility] Please send referral to 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 [place] benefits Iron deficiency anemia due to chronic blood loss 08/02/2019 Iron deficiency anemia secon genna to inadequate dietary iron intake 04/19/2018 Myocardial ischemia 05/01/2015 Hiatal hernia 04/26/2015 Encounters Date Type Department Care Team Description 07/25/2024 Documentation [facility] [employer] [facility] First Floor [address] [place] [phone] Halina Fontenot, SOFTWARE QUALITY TEST ENGINEER 07/11/2024 Orders Only [facility] [employer] [facility] First Floor [address] [place] [phone] Richard Bonner RMA 06/23/2024 Telephone [facility] Geriatric Medicine [address] [facility] [address] Medical Office Building [address] [place] [address] Tianna Prakash RN 06/01/2024 Orders Only [facility] MED ED Scanning, Provider 05/29/2024 Telephone [facility] [address] [place] [address] Kal Hunter, TOMMY 05/26/[address] Floor [address] [place] [address] Elke Vazquez 05/26/2024 Telephone [facility] [address] [place] [address] Erinn Bedolla, TOMMY 05/25/2024 10:30 AM SUPERVISOR TRAIN OPERATIONS Telemedicine [facility] [address] [facility] 6th Floor [address] [place] [address] Anastasia Hyde NP Alzheimer's disease (HCC) (Primary Dx); Weakness; Physical deconditioning; Balance problem 05/25/[address] Floor [address] [place] [id number] Elke Vazquez 05/25/[address] First Floor [address] [place] [phone] Mayela Kim, TOMMY 05/25/2024 Orders Only [address] [place] [id number] Mayela Kim, TOMMY Alzheimer's disease (HCC) (Primary Dx) 05/25/2024 Telephone [facility] [address] [place] [address] Erinn Bedolla, TOMMY 05/09/2024 Orders Only [facility] [...] Micrographic Technique) - (Added by TW Conv) ME TRURL ELECTROSURG RESCJ PROSTATE BLEED COMPLETE Transurethral Resection Of Prostate (TURP) - (Added by TW Conv) ME UNLISTED PROCEDURE VASCUL AR INJECTION Arterial Catheterization - -cardiac cath in 2007 (Added by TW Conv) ME COLONOSCOPY FLX DX W/RALEIGH J SPEC WHEN PFRMD Colonoscopy (Fiberoptic) - (Added by TW Conv) ME ESOPHAGOGASTRODUODENOSCOP Y TRANSORAL DIAGNOSTIC Diagnostic Esophagogastroduodenoscopy - -2007 (Added by TW Conv) INGUINAL HERNIA REPAIR Inguinal Hernia Repair - (Added by TW Conv) HERNIA REPAIR COLONOSCOPY UPPER GASTROINTESTINAL ENDOSCOPY Medical History Medical History Date Comments Personal history of diseases of the blood and blood-forming organs and certain disorders involving the immune mechanism History of an emia - (Added by TW Conv) Personal history of malignan t melanoma [...] history of malignant melanoma - (Added by TW Conv) Heart disease Mother Relation Name Status [...] file Legal Sex Male 9:32 PM SUPERVISOR TRAIN OPERATIONS Gender Identity Male 03/31/2023 8:02 AM CDT Sexual Orientation Straight 03/31/2023 8: 02 AM CDT Obstetrics History Last Filed Vital Signs Vital Sign Reading Time Taken Comments Blood Pressure 165/72 04/03/2024 8:01 AM CDT Pulse 73 04/03/2024 8:01 AM CDT Temperature 37.2 C (98.9 F) 04/03/2024 8:01 AM CDT Respiratory Rate 16 08/04/2019 12:00 PM SUPERVISOR TRAIN OPERATIONS Oxygen Saturation 95% 04/03/2024 8:01 AM CDT [...] Result from Last 3 Months Insurance MEDICARE [employer] MEDICARE [employer] Care Teams Electrical Engineering Teacher Relationship Specialty Start Date End Date Isabella Reddy MD [address] [facility] DIV GENERAL [facility] [address] [place] [address] PCP - General Geriatric Medicine 06/23/24 Gilbetr Anderson MD Medical Oncologist/Web Application Tester Hematology and Oncology 04/19/18
--- OUTSIDE RECORDS SUMMARY | 2024-07-25 18:31 | XMS_ITS | Encounter Summary ---
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
[2024-07-25 18:33] VITALS: BP 153/93; PULSE 84; RESP 20; TEMP 36.6; O2SAT 100
--- NOTE | 2024-07-25 18:36 | ED.WOUNDLAC ---
HPI - Wound/Laceration General Chief Complaint: Wound/Laceration <Nereyda Mejias PA-C - Last Filed: 07/25/24 19:18> Stated Complaint: fall, laceration head <Nereyda Mejias PA-C - Last Filed: 07/25/24 19:18> Time Seen by Provider: 07/25/24 18:30 <Nereyda Mejias PA-C - Last Filed: 07/25/24 19:18> Focused HPI: Patient is an 79-year-old male who presents the ED via EMS with report of a head injury. Patient is resident of a local assisted living facility. Has history of dementia, on memantine. Reports he was packing away some [employer] decorations when he tripped over the box and fell, hitting his left-sided head against the ground. Sustained a scalp laceration. Denied LOC. Denies any other injuries. Denies dizziness, lightheadedness, vision changes, nausea, vomiting, neck pain, back pain. Tetanus UTD per records. Patient is on eliquis. GENERAL: Well-appearing, well-nourished, and in no acute distress. HEAD: Normocephalic. Contusion to L parietal lobe, 1.5cm laceration present, no active bleeding. CHEST: Clear to auscultation. ?No respiratory distress. HEART: Regular rate and rhythm.? NEURO: ?Alert and oriented. Patient screened in triage and initial orders placed.? ?Additional care and disposition to be based upon?diagnostic testing and treatment. <Nereyda Mejias PA-C - Last Filed: 07/25/24 19:18> Focused HPI: Patient is an 79-year-old male who presents the ED via EMS with report of a head injury. Patient is resident of a local assisted living facility. Has history of dementia, on memantine. Reports he was packing away some [employer] decorations when he tripped over the box and fell, hitting his left-sided head against the ground. Sustained a scalp laceration. Denied LOC. Denies any other injuries. Denies dizziness, lightheadedness, vision changes, nausea, vomiting, neck pain, back pain. Tetanus UTD per records. Patient is on Eliquis. GENERAL: Well-appearing, well-nourished, and in no acute distress. HEAD: Normocephalic. Contusion to L parietal lobe, 1.5cm laceration present, no active bleeding. CHEST: Clear to auscultation. ?No respiratory distress. HEART: Regular rate and rhythm.? NEURO: ?Alert and oriented. Patient screened in triage and initial orders placed.? ?Additional care and disposition to be based upon?diagnostic testing and treatment. <Jasmin Pereira APRN - Last Filed: 07/25/24 19:49> Source: patient <Nereyda Mejias PA-C - Last Filed: 07/25/24 19:18> Mode of arrival: ambulatory <JOSÉ Dejesus Last Filed: 07/25/24 19:18> Limitations: no limitations <JOSÉ Dejesus Last Filed: 07/25/24 19:18> Related Data Home Medications: Home Medications ?Medication ?Instructions ?Recorded ?Confirmed ?Last Taken ?Type [id number]-zyfqcxmtukbnf-ivygbdbv 250 2 tablet PO BID 04/10/19 07/14/24 05/31/24 History mg-250 mg-65 mg tablet (Excedrin Migraine) <JOSÉ Dejesus Last Filed: 07/25/24 19:18> Allergies/Adverse Reactions: Allergies Allergy/AdvReac Type Severity Reaction Status Date / Time venom-wasp Allergy Severe Swelling Verified 07/14/24 07:32 Sulfa (Sulfonamide Allergy Mild Rash Verified 07/14/24 07:32 Antibiotics) <JOSÉ Dejesus Last Filed: 07/25/24 19:18> Review of Systems Review of Systems: All systems reviewed & are unremarkable except as noted in HPI and below <Jasmin Pereira APRN - Last Filed: 07/25/24 19:49> PMFSH Past Medical History Medical History: Medical History BMI 37.0-37.9, adult Melanoma Arthritis Mild dementia Benign prostatic hyperplasia Benign essential hypertension Chronic GERD Iron deficiency anemia <JOSÉ Dejesus Last Filed: 07/25/24 19:18> Surgical History Surgical History: Surgical History History of melanoma excision History of bilateral cataract extraction Status post repair of paraesophageal diaphragmatic hernia History of right inguinal hernia repair History of transurethral resection of prostate <Nereyda Mejias PA-C - Last Filed: 07/25/24 19:18> Family History Family History: Family History Mother Hypertension Family history of coronary artery disease Heart disease Father Family history of primary malignant neoplasm of liver Sibling No problems noted. Sibling No problems noted. <Nereyda Mejias PA-C - Last Filed: 07/25/24 19:18> Social History Social History: Social History Social History: Surrogate medical decision maker: Rula Watson, spouse. Code status: Full code. Smoking packs per day: 1 Smoking cigarettes per day: 20.0 Years smoked: 50 Smoking pack-years: 50.00 Smoking status: Former smoker Tobacco type: cigarettes Second hand tobacco smoke exposure: No Smoking end date: 06/14/78 Alcohol intake: current Drinks per week: 3 Substance use: never Substance use type: does not use Do You Feel Safe in your Home?: Yes Lack of Transportation: No Lack of Food: Never True Current Housing: I Have Housing Concerned About Future Housing: No Difficulty Paying Gas/Electric Bills: No Difficulty Paying for Meds: No Currently Unemployed: No Education: Bachelor's Degree Difficulty w/ Childcare or Family Care: No Living arrangements: with family Additional living arrangements comments: Lives with spouse in [place]. 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 Gender identity (if verbalized by the patient): Male Spiritual care concerns: No <Nereyda Mejias PA-C - Last Filed: 07/25/24 19:18> Exam Narrative: GENERAL: Well appearing, well-nourished, non-toxic, in no acute distress. HEAD: Normocephalic. Contusion to L parietal lobe, 1.5cm laceration present, no active bleeding. NECK: Supple. No adenopathy, no masses. RESPIRATORY: Airway patent, respirations nonlabored. Clear to auscultation bilaterally, no rales, rhonchi, wheezing. CARDIOVASCULAR: Regular rate and rhythm without murmurs, rubs, or gallops. Peripheral pulses 2+ and equal bilaterally. ABDOMINAL: Soft, nontender, nondistended, no hepatosplenomegaly. Normoactive BS. MUSCULOSKELETAL: Moves all extremities. Strength/ROM intact without gross deformities. SKIN: Warm, dry, normal color. No rashes. NEURO: A&O X3. Speech clear. Cranial nerves intact. No ataxic movements. PSYCHIATRIC: Appropriate mood and affect. Normal interaction. <Jasmin Pereira APRN - Last Filed: 07/25/24 19:49> Course Vital Signs Vital signs: Vital Signs Temperature 36.6 C 07/25/24 18:33 Pulse Rate 84 07/25/24 18:33 Respiratory Rate 20 07/25/24 18:33 Blood Pressure 153/93 H 07/25/24 18:33 Pulse Oximetry 100 07/25/24 18:33 Oxygen Delivery Room Air 07/25/24 18:33 Temperature 36.6 C 07/25/24 18:33 Pulse Rate 84 07/25/24 18:33 Respiratory Rate 20 07/25/24 18:33 Blood Pressure 153/93 H 07/25/24 18:33 Pulse Oximetry 100 07/25/24 18:33 Oxygen Delivery Room Air 07/25/24 18:33 <Nereyda Mejias PA-C - Last Filed: 07/25/24 19:18> Vital Signs Temperature 36.6 C 07/25/24 18:33 Pulse Rate 84 07/25/24 18:33 Respiratory Rate 20 07/25/24 18:33 Blood Pressure 153/93 H 07/25/24 18:33 Pulse Oximetry 100 07/25/24 18:33 Oxygen Delivery Room Air 07/25/24 18:33 Temperature 36.6 C 07/25/24 18:33 Pulse Rate 84 07/25/24 18:33 Respiratory Rate 20 07/25/24 18:33 Blood Pressure 153/93 H 07/25/24 18:33 Pulse Oximetry 100 07/25/24 18:33 Oxygen Delivery Room Air 07/25/24 18:33 <Jasmin Pereira APRN - Last Filed: 07/25/24 19:49> Procedures Laceration Laceration 1: Date: 07/25/24 <Jasmin FredSis Pereira WINDOW/DISTRIBUTION CLERK - Last Filed: 07/25/24 19:49> Time: 19:40 <Jasmin Pereira WINDOW/DISTRIBUTION CLERK - Last Filed: 07/25/24 19:49> Site: scalp <Jasmin FredSis Pereira WINDOW/DISTRIBUTION CLERK - Last Filed: 07/25/24 19:49> Size (cm): 1.5 <Jasmin Posey Randall WINDOW/DISTRIBUTION CLERK - Last Filed: 07/25/24 19:49> Description: linear <Jasmin Pereira WINDOW/DISTRIBUTION CLERK - Last Filed: 07/25/24 19:49> Depth: simple, single layer <Jasmin Pereira WINDOW/DISTRIBUTION CLERK - Last Filed: 07/25/24 19:49> Pre-repair: irrigated extensively <Jasmin Pereira WINDOW/DISTRIBUTION CLERK - Last Filed: 07/25/24 19:49> ====== Skin Level ======: Skin layer closed with: martine <Jasmin Pereira WINDOW/DISTRIBUTION CLERK - Last Filed: 07/25/24 19:49> Number of sutures: 7 <Jasmin Pereira WINDOW/DISTRIBUTION CLERK - Last Filed: 07/25/24 19:49> ====== Subcutaneous Layer ======: ====== Muscle Layer ======: ====== Tendon Layer ======: MDM - Wound/Laceration MDM Narrative Medical decision making narrative: MSE by SHARAD in triage. <Nereyda Mejias PA-C - Last Filed: 07/25/24 19:18> MSE by SHARAD in triage. Patient is an 79-year-old male who presents the ED via EMS with report of a head injury. Patient is resident of a local assisted living facility. Has history of dementia, on memantine. Reports he was packing away some [employer] decorations when he tripped over the box and fell, hitting his left-sided head against the ground. Sustained a scalp laceration. Denied LOC. Denies any other injuries. Denies dizziness, lightheadedness, vision changes, nausea, vomiting, neck pain, back pain. Tetanus UTD per records. Labs Ordered: Necessary Imaging Ordered: CT brain, CT cervical spine Medications Ordered: None necessary Results: CT brain scan indicates No acute intracranial hemorrhage or suspicious mass effect. CT cervical spine indicates Degenerative disease, without acute fracture. Diagnosis: Concussion without loss of consciousness, laceration Patient Education/Shared MDM: Results of CT scans shared with patient. Pt is up-to-date on his Tetanus vaccine. He endorses no pain at this time. The wound was cleaned and irrigated extensively. Seven martine were placed to close patient's laceration. Bleeding is controlled. Patient advised to follow-up with his PCP for staple removal in 7-10 days. He will not be discharged home with any new prescriptions. Strict return precautions provided. Patient and his daughter verbalized understanding is in agreement with plan. Vital signs stable at time of discharge. All questions answered. <Jasmin Pereira APRN - Last Filed: 07/25/24 19:49> Differential Diagnosis Differential diagnosis: Likely laceration, abrasion and avulsion of skin <Jasmin Pereira APRN - Last Filed: 07/25/24 19:49> Imaging Data Attestation: I personally reviewed and interpreted this imaging study as follows: <Jasmin Pereira APRN - Last Filed: 07/25/24 19:49> Radiologist's impression: Impressions Head CT 07/25/24 19:04 Impression: No acute intracranial hemorrhage or suspicious mass effect. Cervical Spine CT 07/25/24 19:07 Impression: Degenerative disease, without acute fracture. <Jasmin Pereira APRN - Last Filed: 07/25/24 19:49> Discharge Plan Discharge Clinical Impression: Laceration, Concussion without loss of consciousness, initial encounter <Nereyda Mejias PA-C - Last Filed: 07/25/24 19:18> Patient Disposition: Home, Self-Care <JOSÉ Dejesus Last Filed: 07/25/24 19:18> Condition: Stable <Nereyda Mejias PA-C - Last Filed: 02/11/25 19:18> Instructions: Antibiotic Form, Staple Care (ED) <Nereyda Mejias PA-C - Last Filed: 07/25/24 19:18> Additional Instructions: Please return to the ER with an worsening symptoms. Follow-up with primary care provider in the next 7-10 days for staple removal. Take all regularly scheduled medications as prescribed. <Nereyda Mejias PA-C - Last Filed: 07/25/24 19:18> Patient Language: Hungarian <Nereyda Mejias PA-C - Last Filed: 07/25/24 19:18> Prescriptions: No Action Excedrin Migraine 250-250-65 mg tablet 2 tablet PO BID Rx Instructions: STATES TAKING EXCEDRIN DAILY IN THE AM sertraline 100 mg tablet 150 mg PO DAILY Qty: 135 1RF amlodipine 5 mg tablet 5 mg PO DAILY Qty: 90 1RF omeprazole 40 mg capsule,delayed release(DR/EC) 40 mg PO DAILY Qty: 90 1RF memantine 10 mg tablet 10 mg PO BID Qty: 180 1RF ferrous sulfate 325 mg (65 mg iron) tablet,delayed release (DR/EC) 325 mg PO BID Qty: 180 1RF Eliquis 5 mg tablet 5 mg PO BID Qty: 180 1RF bumetanide 1 mg tablet 1 mg PO DAILY Qty: 30 4RF <Nereyda Mejias PA-C - Last Filed: 07/25/24 19:18> Follow-up/Referrals: Cristi Mullen APRN [Primary Care Provider] - <Nereyda Mejias PA-C - Last Filed: 07/25/24 19:18> Time of Disposition: 19:46 <Nereyda Mejias PA-C - Last Filed: 07/25/24 19:18> 19:46 <Jasmin Pereira APRN - Last Filed: 07/25/24 19:49>
--- OUTSIDE RECORDS SUMMARY | 2024-07-25 19:57 | XMS_ITS | Encounter Summary ---
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
--- OUTSIDE RECORDS SUMMARY | 2024-07-25 19:57 | XMS_ITS | Encounter Summary ---
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
--- OUTSIDE RECORDS SUMMARY | 2024-07-25 19:57 | XMS_ITS | Encounter Summary ---
Author Organization [facility] Address [address] [place] [address] Phone Care Team Providers Care Materials Handling Equipment Operator Name Role Phone Gilbert Anderson MD Unavailable [phone] Paul Berkowitz DO Primary Care Provider [phone] Brock Ulrich MD Primary Care Provider [phone] Isabella Reddy MD Primary Care Provid er [...] on file Legal Sex Male 9:32 PM COLLATOR HAND Gender Identity Male 03/31/2023 8:02 AM CDT [...] on filedocumented in this encounter Care Teams Materials Handling Equipment Operator Relationship Specialty Start Date End Date Paul Berkowitz DO PCP - General Internal Medicine 08/01/19 12/17/22 Brock Ulrich MD PCP - General Family Practice 12/18/22 06/22/24 Isabella Reddy MD [address] [facility], [facility] [address] [place] [address] PCP - General Geriatric Medicine 06/23/24 Gilbert Anderson MD Medical Oncologist/Lacquer Maker Hematology and Oncology 04/19/18 documented as of this encounter
--- OUTSIDE RECORDS SUMMARY | 2024-07-25 19:57 | XMS_ITS | Clinical Summary ---
Author Organization [facility] Address [address] [facility] [place] [address] Phone Care Team Providers Care Die Out Worker Name Role Phone Gilbert Anderson MD Unavailable [phone] Isabella Reddy MD Primary Care Provid er [...] collected on 02/25/23 consistent with AD - [id number]: 0.060 (H), Ab42 573 (L), t-tau 350 (H), p-tau 34.6 (H) -Diagnosis: AD -Namenda/memantine 10 mg BID, sertraline/Zoloft 100 mg, did not want to pursue anti amyloid therapy -discontinued donepezil/Aricept d/t GI upset, diverticultis, wt loss Assessment & Plan (05/25/2024 10:54 AM CORPORATE DIRECTOR): Stop donepezil/Aricept due to wt loss, diverticulitis, low appetite Continue Namenda/memantine 10 mg BID Physical therapy and occupational therapy at home Referred to [facility] for primary care ( request) Assessment & Plan (04/03/2024 9:07 AM CDT): -Onset: 2019 -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, moderate WMD -Biomarkers: CSF ADEVL collected on 02/25/23 consistent with AD - [id number]/abeta42: 0.060 (H), Ab42 573 (L), t-tau 350 (H), p-tau 34.6 (H) -Diagnosis: AD -Relevant medications: donepezil/Aricept 5 mg (GI upset with higher dose), Namenda/memantine 10 mg BID, sertraline/Zoloft 100 mg, did not want to pursue anti amyloid therapy PLAN: Hide car keys Consider increasing sertraline/Zoloft moving forward Increase physical activity, two community centers in [place] 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, 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 Shante Oneal [facility] Please send referral to 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 [place] benefits Iron deficiency anemia due to chronic blood loss 08/02/2019 Iron deficiency anemia secon genna to inadequate dietary iron intake 04/19/2018 Myocardial ischemia 05/01/2015 Hiatal hernia 04/26/2015 Encounters Date Type Department Care Team Description 07/25/2024 Documentation [facility] First Floor [address] [place] [address] Halina Fontenot, STOCK FEEDER 07/11/2024 Orders Only [facility] First Floor [address] [place] [address] Richard Bonner RMA 06/23/2024 Telephone [facility] [address] [facility] [address] Medical Office Building 2 [place] [address] Tianna Prakash RN 06/01/[address] [facility] ED Scanning, Provider 05/29/[address] [facility] Home Care Services [address] [place] [address] Kal Hunter, TOMMY 05/26/[address] First Floor [address] [place] [address] Elke Vazquez 05/26/[address] [facility] Home Care Services [address] [place] [address] Erinn Bedolla, TOMMY 05/25/2024 10:30 AM CORPORATE DIRECTOR Telemedicine [facility] [address] [facility] 6th Floor [address] [place] [address] Anastasia Hyde NP Alzheimer's disease (HCC) (Primary Dx); Weakness; Physical deconditioning; Balance problem 05/25/[address] First Floor [address] [place] [address] Elke Vazquez 05/25/[address] First Floor [address] [place] [address] Mayela Kim, TOMMY 05/25/2024 Orders Only [address] Floor [address] [place] [address] Mayela Kim, TOMMY Alzheimer's disease (HCC) (Primary Dx) 05/25/[address] [facility] Home Care Services [address] [place] [address] Erinn Bedolla, TOMMY 05/09/2024 Orders Only [facility] [...] Micrographic Technique) - (Added by TW Conv) MD TRURL ELECTROSURG RESCJ PROSTATE BLEED COMPLETE Transurethral Resection Of Prostate (TURP) - (Added by TW Conv) MD UNLISTED PROCEDURE VASCUL AR INJECTION Arterial Catheterization - -cardiac cath in 2007 (Added by TW Conv) MD COLONOSCOPY FLX DX W/RALEIGH J SPEC WHEN PFRMD Colonoscopy (Fiberoptic) - (Added by TW Conv) MD ESOPHAGOGASTRODUODENOSCOP Y TRANSORAL DIAGNOSTIC Diagnostic Esophagogastroduodenoscopy - [...] on file Legal Sex Male 9:32 PM CORPORATE DIRECTOR Gender Identity Male 03/31/2023 8:02 AM CDT Sexual Orientation Straight 03/31/2023 8: 02 AM CDT Obstetrics History Last Filed Vital Signs Vital Sign Reading Time Taken Comments Blood Pressure 165/72 04/03/2024 8:01 AM CDT Pulse 73 04/03/2024 8:01 AM CDT Temperature 37.2 C (98.9 F) 04/03/2024 8:01 AM CDT Respiratory Rate 16 08/04/2019 12:00 PM CORPORATE DIRECTOR Oxygen Saturation 95% 04/03/2024 8:01 AM CDT [...] Result from Last 3 Months Insurance MEDICARE [employer] MEDICARE [employer] Care Teams Die Out Worker Relationship Specialty Start Date End Date Isabella Reddy MD [address] [facility] [address] [place] [address] PCP - General Geriatric Medicine 06/23/24 Gilbert Anderson MD Medical Oncologist/Orthopedic Podiatrist Hematology and Oncology 04/19/18
--- OUTSIDE RECORDS SUMMARY | 2024-07-25 19:57 | XMS_ITS | Referral Summary ---
Author Organization [facility] Address [address] [facility] [place] [address] Phone Care Team Providers Care Crepe Sole Wire Brusher Name Role Phone Gilbert Anderson MD Unavailable [phone] Isabella Reddy MD Primary Care Provid er Encounters Date Type Department Care Team Description 07/25/[address] [place] [id number] [facility] [place] First Floor [address] [place] [address] Halina Fontenot, SPUD DRILLER 07/11/2024 Orders Only [address] First Floor [address] [place] [address] Richard Bonner, RMA 06/23/2024 Telephone [facility] [address] [facility] [address] Medical Office Building 2 [place] [address] Tianna Prakash, TOMMY 06/01/2024 Orders Only [facility] Scanning, Provider 05/29/2024 Telephone [facility] Home Care Services [address] [place] [address] Kal Hunter, TOMMY 05/26/[address] First Floor [address] [place] [address] Elke Vazquez 05/26/2024 Telephone [facility] Home Care Services [address] [place] [address] Erinn Bedolla, TOMMY 05/25/[address] [place] [id number] [facility] [place] First Floor [address] [place] [address] Vin Vazqueznatacha 05/25/2024 Telephone [facility] [address] [facility] [place] First Floor [address] [place] [address] Mayela Kim RN 05/25/2024 Orders Only [facility] [address] [facility] [place] First Floor [address] [place] [address] Mayela Kim, TOMMY Alzheimer's disease (HCC) (Primary Dx) 05/25/2024 Telephone [facility] Home Care Services [address] [place] [address] Erinn Bedolla RN 05/25/2024 10:30 AM HYDRO PLANT TECHNICIAN Telemedicine [facility] [address] [facility] 6th Floor [address] [place] [address] Anastasia Hyde NP Alzheimer's disease (HCC) (Primary [...] collected on 02/25/23 consistent with AD - [id number]: 0.060 (H), Ab42 573 (L), t-tau 350 (H), p-tau 34.6 (H) -Diagnosis: AD -Namenda/memantine 10 mg BID, sertraline/Zoloft 100 mg, did not want to pursue anti amyloid therapy -discontinued donepezil/Aricept d/t GI upset, diverticultis, wt loss Assessment & Plan (05/25/2024 10:54 AM HYDRO PLANT TECHNICIAN): Stop donepezil/Aricept due to wt loss, diverticulitis, low appetite Continue Namenda/memantine 10 mg BID Physical therapy and occupational therapy at home Referred to [facility] for primary care ( request) Assessment & Plan (04/03/2024 9:07 AM CDT): -Onset: 2019 -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, moderate WMD -Biomarkers: CSF ADEVL collected on 02/25/23 consistent with AD - [id number]/abeta42: 0.060 (H), Ab42 573 (L), t-tau 350 (H), p-tau 34.6 (H) -Diagnosis: AD -Relevant medications: donepezil/Aricept 5 mg (GI upset with higher dose), Namenda/memantine 10 mg BID, sertraline/Zoloft 100 mg, did not want to pursue anti amyloid therapy PLAN: Hide car keys Consider increasing sertraline/Zoloft moving forward Increase physical activity, two community centers [facility] 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, 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 Shante Pepe Please send referral to Independent [...] on file Legal Sex Male 9:32 PM HYDRO PLANT TECHNICIAN Gender Identity Male 03/31/2023 8:02 AM CDT Sexual Orientation Straight 03/31/2023 8: 02 AM CDT Last Filed Vital Signs Vital Sign Reading Time Taken Comments Blood Pressure 165/72 04/03/2024 8:01 AM CDT Pulse 73 04/03/2024 8:01 AM CDT Temperature 37.2 C (98.9 F) 04/03/2024 8:01 AM CDT Respiratory Rate 16 08/04/2019 12:00 PM HYDRO PLANT TECHNICIAN Oxygen Saturation 95% 04/03/2024 8:01 AM CDT [...] Result from Last 3 Months Insurance MEDICARE its learning MEDICARE [employer] Care Teams Crepe Sole Wire Brusher Relationship Specialty Start Date End Date Isabella Reddy MD [address] [facility], [facility] [address] [place] [address] PCP - General Geriatric Medicine 06/23/24 Gilbert Anderson MD Medical Oncologist/Enameler Hematology and Oncology 04/19/18
--- OUTSIDE RECORDS SUMMARY | 2024-07-25 19:57 | XMS_ITS | Encounter Summary ---
Author Organization [facility] Address [address] [place] [address] Phone Care Team Providers Care Professor Of Religion Name Role Phone Gilbert Anderson MD Unavailable [phone] Brock Ulrich MD Primary Care Provider [phone] Isabella Reddy MD Primary Care Provid er [...] on file Legal Sex Male 9:32 PM TYPESETTERS PRINTER Gender Identity Male 03/31/2023 8:02 AM CDT [...] on filedocumented in this encounter Care Teams Professor Of Religion Relationship Specialty Start Date End Date Brock Ulrich MD PCP - General Family Practice 12/18/22 06/22/24 Isabella Reddy MD [address] [facility] [address] [address] PCP - General Geriatric Medicine 06/23/24 Gilbert Anderson MD Medical Oncologist/Supervisor Metal Placing Hematology and Oncology 04/19/18 documented as of this encounter
--- OUTSIDE RECORDS SUMMARY | 2024-07-25 19:57 | XMS_ITS | Encounter Summary ---
Author Organization [facility] Address [address] [place] [address] Phone Care Team Providers Care Instrument Specialist Name Role Phone Gilbert Anderson MD Unavailable [phone] Paul Berkowitz DO Primary Care Provider [phone] Brock Ulrich MD Primary Care Provider [phone] Isabella Reddy MD Primary Care Provid er [...] on file Legal Sex Male 9:32 PM ROTARY DERRICK OPERATOR Gender Identity Male 03/31/2023 8:02 AM [...] on filedocumented in this encounter Care Teams Instrument Specialist Relationship Specialty Start Date End Date Paul Berkowitz DO PCP - General Internal Medicine 08/01/19 12/17/22 Brock Ulrich MD PCP - General Family Practice 12/18/22 06/22/24 Isabella Reddy MD [address] [facility], [facility] [address] [place] [address] PCP - General Geriatric Medicine 06/23/24 Gilbert Anderson MD Medical Oncologist/Group Exercise Instructor Hematology and Oncology 04/19/18 documented as of this encounter
--- OUTSIDE RECORDS SUMMARY | 2024-07-25 19:57 | XMS_ITS | Encounter Summary ---
Author Organization [facility] Address [address] [place] [address] Phone Care Team Providers Care Rattle Leak And Squeak Repairer Name Role Phone Gilbert Anderson MD Unavailable [phone] Isabella Reddy MD Primary Care Provid er Encounter Details Date Type Department Care Team (Late st Contact Info) Description 07/25/2024 Documentation [place] [id number] [facility] First Floor [address] [place] [address] Halina Fontenot CNS Social History Tobacco Use Types Packs/Day Years Used Date Smoking Tobacco: Former Cigarettes Q uit: 1979 Smokeless Tobacco: Never Alcohol Use Standard Drinks/Week Comments Yes 1 (1 standard drink = 0.6 oz pur e alcohol) Sex and Gender Information Value Date Recorded Sex Assigned at Not on file Legal Sex Male 9:32 PM PCB DESIGN ENGINEER Gender Identity Male 03/31/2023 8:02 AM CDT Sexual Orientation Straight 03/31/2023 8: 02 AM CDT documented as of this encounter Progress Notes * Halina Fontenot CNS - 07/25/2024 2:42 PM CST Physician Assessment Certification faxed to [facility] [place]: Belia DESIGN ENGINEER documented in this encounter Plan of Treatment Not on file documented as of this encounter Visit Diagnoses Not on filedocumented in this encounter Care Teams Rattle Leak And Squeak Repairer Relationship Specialty Start Date End Date Isabella Reddy MD [address] [facility] [address] [place] [address] PCP - General Geriatric Medicine 06/23/24 Gilbert Anderson MD Medical Oncologist/Shoe Polisher Hematology and Oncology 04/19/18 documented as of this encounter
--- OUTSIDE RECORDS SUMMARY | 2024-07-25 19:57 | XMS_ITS | Encounter Summary ---
Author Organization [facility] Address [address] [place] [address] Phone Care Team Providers Care Tufting Supervisor Name Role Phone Gilbert Anderson MD Unavailable [phone] Brock Ulrich MD Primary Care Provider [phone] Isabella Reddy MD Primary Care Provid er [...] on file Legal Sex Male 9:32 PM NEEDLE LOOM SETTER Gender Identity Male 03/31/2023 8:02 AM CDT [...] on filedocumented in this encounter Care Teams Tufting Supervisor Relationship Specialty Start Date End Date Brock Ulrich MD PCP - General Family Practice 12/18/22 06/22/24 Isabella Reddy MD [address] [facility], [facility] [address] [address] PCP - General Geriatric Medicine 06/23/24 Gilbert Anderson MD Medical Oncologist/Fuel Distribution System Operator Hematology and Oncology 04/19/18 documented as of this encounter
--- OUTSIDE RECORDS SUMMARY | 2024-07-25 19:57 | XMS_ITS | Encounter Summary ---
Author Organization [facility] Address [address] [place] [address] Phone Care Team Providers Care School Bus Driver/Mechanic Name Role Phone Gilbert Anderson MD Unavailable [phone] Brock Ulrich MD Primary Care Provider [phone] Isabella Reddy MD Primary Care Provid er [...] on file Legal Sex Male 9:32 PM ENGAGEMENT DIRECTOR Gender Identity Male 03/31/2023 8:02 AM [...] on filedocumented in this encounter Care Teams School Bus Driver/Mechanic Relationship Specialty Start Date End Date Brock Ulrich MD PCP - General Family Practice 12/18/22 06/22/24 Isabella Reddy MD [address] [facility], [facility] [address] [address] PCP - General Geriatric Medicine 06/23/24 Gilbert Anderson MD Medical Oncologist/Hardware Installer Hematology and Oncology 04/19/18 documented as of this encounter
--- OUTSIDE RECORDS SUMMARY | 2024-07-25 19:57 | XMS_ITS | Encounter Summary ---
Author Organization [facility] Address [address] [place] [address] Phone Care Team Providers Care Yeast Distiller Name Role Phone Gilbert Anderson MD Unavailable [phone] Paul Berkowitz DO Primary Care Provider [phone] Brock Ulrich MD Primary Care Provider [phone] Isabella Reddy MD Primary Care Provid er [...] on file Legal Sex Male 9:32 PM CONCRETE BUILDING ASSEMBLER Gender Identity Male 03/31/2023 8:02 AM CDT [...] on filedocumented in this encounter Care Teams Yeast Distiller Relationship Specialty Start Date End Date Paul Berkowitz DO PCP - General Internal Medicine 08/01/19 12/17/22 Brock Ulrich MD PCP - General Family Practice 12/18/22 06/22/24 Isabella Reddy MD [address] [facility], [facility] [address] [place] [address] PCP - General Geriatric Medicine 06/23/24 Gilbert Anderson MD Medical Oncologist/Neurosurgical Nurse Practitioner Hematology and Oncology 04/19/18 documented as of this encounter
--- OUTSIDE RECORDS SUMMARY | 2024-07-25 19:57 | XMS_ITS | Encounter Summary ---
Author Organization [facility] Address [address] [place] [address] Care Team Providers Care Supervisor Fireworks Assembly Name Role Phone Gilbert Anderson MD Unavailable [phone] Brock Ulrich MD Primary Care Provider [phone] Isabella Reddy MD Primary Care Provid er Encounter Details Date Type Department Care Team (Late st Contact Info) Description 05/26/2024 Telephone [facility] Home Care Services [address] [place] [address] Erinn Bedolla, RN Social History Tobacco Use Types Packs/Day Years Used Date Smoking Tobacco: Former Cigarettes Q uit: 1979 Smokeless Tobacco: Never Alcohol Use Standard Drinks/Week Comments Yes 1 (1 standard drink = 0.6 oz pur e alcohol) Sex and Gender Information Value Date Recorded Sex Assigned at Not on file Legal Sex Male 9:32 PM VERTICAL PUNCH OPERATOR Gender Identity Male 03/31/2023 8:02 AM CDT Sexual Orientation Straight 03/31/2023 8: 02 AM CDT documented as of this encounter Plan of Treatment Not on file documented as of this encounter Visit Diagnoses Not on filedocumented in this encounter Care Teams Supervisor Fireworks Assembly Relationship Specialty Start Date End Date Brock Ulrich MD PCP - General Family Practice 12/18/22 06/22/24 Isablela Reddy MD [address] [facility], [place] [address] [place] [address] PCP - General Geriatric Medicine 06/23/24 Gilbert Anderson MD Medical Oncologist/Apprentice Plant Attendant Hematology and Oncology 04/19/18 documented as of this encounter
[2024-07-25 19:58] VITALS: BP 158/83; PULSE 80; RESP 17; TEMP 36.8; O2SAT 100
== END 2024-07-25 20:00 ==
LOC: ANHED 19:55
PROVIDERS: Emergency Provider Registered Nurse; PCP Nurse Practitioner
DX: S06.0X0A Concussion without loss of consciousness, initial encounter (principal); S01.01XA Laceration without foreign body of scalp, initial encounter; M19.90 Unspecified osteoarthritis, unspecified site; F03.90 Unspecified dementia, unspecified severity, without behavioral disturbance, psychotic disturbance, mood disturbance, and anxiety; N40.0 Benign prostatic hyperplasia without lower urinary tract symptoms; I10 Essential (primary) hypertension; K21.9 Gastro-esophageal reflux disease without esophagitis; D64.9 Anemia, unspecified; W01.0XXA Fall on same level from slipping, tripping and stumbling without subsequent striking against object, initial encounter
CPT/HCPCS: 12001; 70450; 72125; 99284

== ENCOUNTER 2024-08-21 14:24 | Outpatient (CLI) | payer MEDICARE, OTHER, SELFPAY ==
--- NOTE | ~2024-08-21 | CT_ITS ---
CT of the Abdomen and Pelvis: Indication: Diverticulitis Technique: 2.5 mm axial scans were obtained through the abdomen and pelvis following intravenous adm inistration of 100 cc of Omnipaque 350. Dose reduction technique was used on this scan by utilizing a utomated exposure control and iterative reconstruction technique. The dose-length product (DLP) was 4 97.58 mGy-cm. COMPARISON: 07/17/2024 Findings: Scans through the lung bases are unremarkable. The liver, spleen, pancreas, gallbladder, adrenals and kidneys are within normal limits. There are at herosclerotic calcifications of the aorta. Infrarenal aorta measures up to 3.2 cm in maximum diameter . No lymphadenopathy. No bowel obstructive. Possible mild wall thickening of sigmoid colon, which could reflect minimal div erticula is. There is an irregular abscess anterior to the sigmoid colon in the lower abdomen/upper p hermes, fluid collection or tract extending through the anterior abdominal wall to the anterior subcut aneous soft tissues toward the umbilicus. This apparent collection measures approximately 7.4 cm in t ransverse dimension, 4.7 cm in AP dimension, and 4.4 cm in craniocaudal extent (axial images [id number], s agittal images [id number]). Images through the pelvis were performed. Urinary bladder unremarkable. Prostate gland is enlarged wi th possible TURP defect. Impression: Irregular abscess in the anterior lower abdomen extending through the anterior abdominal wall into th e subcutaneous soft tissues towards the umbilicus, as detailed above, measuring up to approximately 7 .4 x 4.7 x 4.4 cm in overall extent. Possible mild acute diverticulitis. Enlarged prostate gland. 3.2 cm infrarenal abdominal aortic aneurysm. Reviewed, dictated and finalized at location M. Impression: Irregular abscess in the anterior lower abdomen extending through the anterior abdominal wall into the subcutaneous soft tissues towards the umbilicus, as det cesar above, measuring up to approximately 7.4 x 4.7 x 4.4 cm in overall extent . Possible mild acute diverticulitis. Enlarged prostate gland. 3.2 cm infrarenal abdominal aortic aneurysm.
[2024-08-21 14:43] LABS: Estimated Glomerular Filt Rate > 60
== END 2024-08-21 14:25 | disposition home or self-care (01) ==
LOC: MICIMG 14:25
PROVIDERS: PCP Nurse Practitioner; Visit Provider Surgery
DX: K57.92 Diverticulitis of intestine, part unspecified, without perforation or abscess without bleeding (principal); L02.211 Cutaneous abscess of abdominal wall; N40.0 Benign prostatic hyperplasia without lower urinary tract symptoms; I71.43 Infrarenal abdominal aortic aneurysm, without rupture
CPT/HCPCS: 74177; Q9967

== ENCOUNTER 2024-08-25 11:43 | Inpatient (IN) | payer MEDICARE, OTHER, SELFPAY ==
[2024-08-23 14:33] VITALS: BMI 24.4
--- NOTE | 2024-08-23 15:03 | PC.NURSE ---
Report to the Outpatient Waiting Room, entrance under the green pavilion located off [facility] , at time __11:00AM on date ___08/24/24____. Planned Procedure Time: _1:00PM .? Time changes happen often and if your time is changed the preop area will call you the afternoon before. - You and your visitor will be asked to self-screen and do not enter if you have any COVID symptoms. Please call surgeon if you need to reschedule. - A mask is optional within the hospital at this time. Patients may have clear liquids (water, carbonated beverages, clear teas, apple juice) until 3 hours prior to surgery (10:00am) with a maximum of 20 ounces. - No food from midnight until time of surgery and no smoking, or chewing tobacco (or any form of nicotine). No chewing gum, candy or mints. Take only the following medications with a SIP of water on the morning of surgery: ___BUSPIRONE, SERTRALINE DO NOT STOP ANY OF YOUR OTHER PRESCRIPTION MEDICATIONS PRIOR TO SURGERY EXCEPT THE FOLLOWING Hold all vitamins and supplements for 3 days per anesthesiologist. Medications to discontinue per physician ____HOLD ELIQUIS STARTING NOW PER DR MACARIO. Date to take last dose 08/23/24 Please no make-up, nail german, hairspray, perfume, deodorant, or body powder the day of surgery.? No jewelry (including any body piercings) or valuables the day of surgery, leave them at home.? Please take a shower or bath the night before, or the morning of, surgery with an antibacterial soap.? Wear comfortable, loose fitting clothing.? - Jewelry must be removed prior to entering the operating room.? Rings and piercings that are not removed may be cut off. - The hospital will not accept responsibility for valuables.? - Please leave all valuables, including medications, at home the day of surgery. If you are going home after surgery, a licensed cdl company flatbed driver must drive you home.? - NO public transportation without another adult if you receive anesthesia. - We recommend that an adult stay with you for 24 hours following discharge. - We also recommend that you do not drive, make important decision, drink alcoholic beverages, or take any drugs that were not prescribed by your health care provider for at least 24 hours after your discharge time. Follow any additional instructions given to you from your surgeon. Telephone instructions given to ____PATIENT'S AND PENITENTIARY STAFF and asked if any additional questions and then verbalized understanding. Patient advised to call surgeon office or pre surgery nurse liaison [phone] if any additional questions.
[2024-08-24] VITALS (13 sets, daily range): BP systolic 110–139; BP diastolic 63–85; PULSE 66–94; RESP 12–20; TEMP 36.7–37.3; O2SAT 96–100; BMI 24.1
--- OUTSIDE RECORDS SUMMARY | 2024-08-24 00:30 | XMS_ITS | Encounter Summary ---
Author Organization [facility] Address [address] [place] [address] Phone Care Team Providers Care Internet Consultant Name Role Phone Gilbert Anderson MD Unavailable [phone] Paul Berkowitz DO Primary Care Provider [phone] Brock Ulrich MD Primary Care Provider [phone] Isabella Reddy MD Primary Care Provid er [...] on file Legal Sex Male 9:32 PM WATER MANGLE TENDER Gender Identity Male 03/31/2023 8:02 AM CDT [...] on filedocumented in this encounter Care Teams Internet Consultant Relationship Specialty Start Date End Date Paul Berkowitz DO PCP - General Internal Medicine 08/01/19 12/17/22 Brock Ulrich MD PCP - General Family Practice 12/18/22 06/22/24 Isabella Reddy MD [address] [facility] [address] [place] [address] PCP - General Geriatric Medicine 06/23/24 Gilbert Anderson MD Medical Oncologist/Engine Boss Hematology and Oncology 04/19/18 documented as of this encounter
--- OUTSIDE RECORDS SUMMARY | 2024-08-24 00:30 | XMS_ITS | Encounter Summary ---
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
--- OUTSIDE RECORDS SUMMARY | 2024-08-24 00:31 | XMS_ITS | Encounter Summary ---
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 [address] [address] PCP - General Geriatric Medicine 06/23/24 Gilbert Anderson MD Medical Oncologist/Soaping Machine Back Tender Hematology and Oncology 04/19/18 documented as of this encounter
--- OUTSIDE RECORDS SUMMARY | 2024-08-24 00:31 | XMS_ITS | Encounter Summary ---
Author Organization [facility] Address [address] [place] [address] Care Team Providers Care Lingo Cleaner Name Role Phone Gilbert Anderson MD Unavailable [phone] Brock Ulrich MD Primary Care Provider [phone] Isabella Reddy MD Primary Care Provid er Encounter Details Date Type Department Care Team (Late st Contact Info) Description 05/26/2024 Telephone [facility] Home Care Services [address] [place] [address] Erinn Bedolla, RN Social History Tobacco Use Types Packs/Day Years Used Date Smoking Tobacco: Former Cigarettes Q uit: 1979 Smokeless Tobacco: Never Alcohol Use Standard Drinks/Week Comments Yes 1 (1 standard drink = 0.6 oz pur e alcohol) Sex and Gender Information Value Date Recorded Sex Assigned at Not on file 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 Gender Identity Male 03/31/2023 8:02 AM CDT Sexual Orientation Straight 03/31/2023 8: 02 AM CDT documented as of this encounter Plan of Treatment Not on file documented as of this encounter Visit Diagnoses Not on filedocumented in this encounter Care Teams Lingo Cleaner Relationship Specialty Start Date End Date Brock Ulrich MD PCP - General Family Practice 12/18/22 06/22/24 Isabella Reddy MD [address] [facility] GENER[facility], [facility] [address] [place] [address] PCP - General Geriatric Medicine 06/23/24 Gilbert Anderson MD Medical Oncologist/Chisel Grinder Hematology and Oncology 04/19/18 documented as of this encounter
--- OUTSIDE RECORDS SUMMARY | 2024-08-24 00:31 | XMS_ITS | Encounter Summary ---
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
--- OUTSIDE RECORDS SUMMARY | 2024-08-24 00:31 | XMS_ITS | Referral Summary ---
Author Organization [facility] Address [address] [place] [address] Phone Care Team Providers Care Campaign Advisor Name Role Phone Gilbert Anderson MD Unavailable Isabella Reddy MD Primary Care Provid er Encounters Date Type Department Care Team Description 07/25/2024 Documentation [facility] Diagnostic [address] Floor [address] [place] [address] Halina Fontenot, PROMOTION OFFICER 07/11/2024 Orders Only [address] Floor [address] [place] [address] Richard Bonner RMJoseph 06/23/2024 Telephone [facility] Geriatric Medicine [address] [facility] [address] Medical Office Building [address] [place] [address] Tianna Prakash, TOMMY 06/01/2024 Orders Only [facility] ED Scanning, Provider 05/29/[address] [facility] Home Care Services [address] [place] [address] Kal Hunter 05/26/[address] [place] [address] Elke Vazquez 05/26/[address] [facility] Home Care Services [address] [place] [address] Erinn Bedolla, TOMMY from Last 3 Months Allergies Active Allergy [...] collected on 02/25/23 consistent with AD - [id number]/abeta42: 0.060 (H), Ab42 573 (L), t-tau 350 (H), p-tau 34.6 (H) -Diagnosis: AD -Namenda/memantine 10 mg BID, sertraline/Zoloft 100 mg, did not want to pursue anti amyloid therapy -discontinued donepezil/Aricept d/t GI upset, diverticultis, wt loss Assessment & Plan (05/25/2024 10:54 AM LOGISTICS PROGRAM MANAGER): Stop donepezil/Aricept due to wt loss, diverticulitis, low appetite Continue Namenda/memantine 10 mg BID Physical therapy and occupational therapy at home Referred to Geriatrics for primary care ( request) Assessment & Plan (04/03/2024 9:07 AM CDT): -Onset: 2019 -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, moderate WMD -Biomarkers: CSF ADEVL collected on 02/25/23 consistent with AD - shuf152/abeta42: 0.060 (H), Ab42 573 (L), t-tau 350 (H), p-tau 34.6 (H) -Diagnosis: AD -Relevant medications: donepezil/Aricept 5 mg (GI upset with higher dose), Namenda/memantine 10 mg BID, sertraline/Zoloft 100 mg, did not want to pursue anti amyloid therapy PLAN: Hide car keys Consider increasing sertraline/Zoloft moving forward Increase physical activity, two community centers in [place] 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, 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 [facility] Please send referral to 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 benefits Iron deficiency anemia due to chronic blood loss 08/02/2019 Iron deficiency anemia secon genna to inadequate dietary iron intake 04/19/2018 Myocardial ischemia 05/01/2015 Hiatal hernia 04/26/2015 Immunizations Immunization Administration Dates Next Due Influenza, Trivalent, High [...] on file 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 Gender Identity Male 03/31/2023 8:02 AM CDT Sexual Orientation Straight 03/31/2023 8: 02 AM CDT Last Filed Vital Signs Vital Sign Reading Time Taken Comments Blood Pressure 165/72 04/03/2024 8:01 AM CDT Pulse 73 04/03/2024 8:01 AM CDT Temperature 37.2 C (98.9 F) 04/03/2024 8:01 AM CDT Respiratory Rate 16 08/04/2019 12:00 PM LOGISTICS PROGRAM MANAGER Oxygen Saturation 95% 04/03/2024 8:01 AM CDT Inhaled Oxygen Concentration - - Weight 87.1 kg (192 lb) 04/03/2024 8:01 AM CDT Height 175.3 cm (5' 9 ) 04/03/2024 8:01 AM CDT Body Mass Index 28.35 04/03/2024 8:01 AM CDT Plan of Treatment Not on file Procedures Procedure Name Priority Date/Time Associated Diagnosis Comments SCAN - RADIOLOGY/IMAGING 06/01/2024 from Last 3 Months Results * SCAN - RADIOLOGY/IMAGING (06/01/2024) Anatomical Region Laterality Modality Other us Provider Scanning Edited Result - Final from Last 3 Months Insurance MEDICARE [employer] MEDICARE FOR LIFE Care Teams Campaign Advisor Relationship Specialty Start Date End Date Isabella Reddy MD [address] [facility] [address] [place] [address] PCP - General Geriatric Medicine 06/23/24 Gilbert Anderson MD Medical Oncologist/Header Dock Hematology and Oncology 04/19/18
--- OUTSIDE RECORDS SUMMARY | 2024-08-24 00:31 | XMS_ITS | Encounter Summary ---
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
--- OUTSIDE RECORDS SUMMARY | 2024-08-24 00:31 | XMS_ITS | Encounter Summary ---
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
--- OUTSIDE RECORDS SUMMARY | 2024-08-24 00:31 | XMS_ITS | Encounter Summary ---
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
--- OUTSIDE RECORDS SUMMARY | 2024-08-24 00:31 | XMS_ITS | Clinical Summary ---
Author Organization [facility] Address [address] [facility] [place] [address] Phone Care Team Providers Care Junior Web Developer Name Role Phone Gilbert Anderson MD Unavailable [phone] Isabella Reddy MD Primary Care Provid er [...] collected on 02/25/23 consistent with AD - [id number]/[id number]: 0.060 (H), Ab42 573 (L), t-tau 350 (H), p-tau 34.6 (H) -Diagnosis: AD -Namenda/memantine 10 mg BID, sertraline/Zoloft 100 mg, did not want to pursue anti amyloid therapy -discontinued donepezil/Aricept d/t GI upset, diverticultis, wt loss Assessment & Plan (05/25/2024 10:54 AM CARCASS WASHER): Stop donepezil/Aricept due to wt loss, diverticulitis, low appetite Continue Namenda/memantine 10 mg BID Physical therapy and occupational therapy at home Referred to Geriatrics [place] for primary care ( request) Assessment & Plan (04/03/2024 9:07 AM CDT): -Onset: 2019 -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, moderate WMD -Biomarkers: CSF ADEVL collected on 02/25/23 consistent with AD - ofhf097/abeta42: 0.060 (H), Ab42 573 (L), t-tau 350 (H), p-tau 34.6 (H) -Diagnosis: AD -Relevant medications: donepezil/Aricept 5 mg (GI upset with higher dose), Namenda/memantine 10 mg BID, sertraline/Zoloft 100 mg, did not want to pursue anti amyloid therapy PLAN: Hide car keys Consider increasing sertraline/Zoloft moving forward Increase physical activity, two community centers in [place] 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, 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 [facility] Please send referral to 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 benefits Iron deficiency anemia due to chronic blood loss 08/02/2019 Iron deficiency anemia secon genna to inadequate dietary iron intake 04/19/2018 Myocardial ischemia 05/01/2015 Hiatal hernia 04/26/2015 Encounters Date Type Department Care Team Description 07/25/2024 Documentation [facility] First Floor [address] [place] [address] Halina Fontenot, RESIDENT MANAGER 07/11/2024 Orders Only [facility] First Floor [address] [place] [address] Richard Bonner RMA 06/23/2024 Telephone [facility] Geriatric Medicine [address] [facility] [address] Medical Office [address] [place] [address] Tianna Prakash RN 06/01/2024 Orders Only [facility] Scanning, Provider 05/29/2024 Telephone [facility] Home Care Services [address] [place] [address] Kal Hunter 05/26/2024 Telephone [facility] First Floor [address] [place] [address] Elke Vazquez 05/26/2024 Telephone [facility] Home Care Services [address] [place] [address] Erinn Bedolla RN from Last 3 Months Immunizations Immunization Administration Dates Next Due Influenza, Trivalent, High D ose, Split, Preservative Free, Intramuscular 04/04/2019,03/27/2018,03/28/2017,04/14,04/07/2015 Influenza, Unspecified 01/30/2014,2012,04/07/2012,03/14 Pneumococcal Conjugate PCV 13 04/07/2015 Pneumococcal Polysaccharide PPV23 04/18/2019 Pneumococcal, Unspecified 04/20/2013 Tdap 04/18/2019 ZOSTER LIVE 03/19/2014,04/20/2012 Surgical History Surgery Date Site/Laterality Comments MOHS SURGERY Chemosurgery (Mohs Micrographic Technique) - (Added by TW Conv) DE TRURL ELECTROSURG RESCJ PROSTATE BLEED COMPLETE Transurethral Resection Of Prostate (TURP) - (Added by TW Conv) DE UNLISTED PROCEDURE VASCUL AR INJECTION Arterial Catheterization - -cardiac cath in 2007 (Added by TW Conv) DE COLONOSCOPY FLX DX W/RALEIGH J SPEC WHEN PFRMD Colonoscopy (Fiberoptic) - (Added by TW Conv) DE ESOPHAGOGASTRODUODENOSCOP Y TRANSORAL DIAGNOSTIC Diagnostic Esophagogastroduodenoscopy - [...] (benign prostatic hyperp lasia) - (Added by HAIM Conv) Anemia Skin cancer Hypertension Diverticulitis Weight loss Family History Medical History Relation Name Comments Liver cancer Father Family history of liver cancer - (Added by HAIM Conv) Melanoma Father Family history of malignant melanoma - (Added by HAIM Conv) Heart disease Mother Relation Name Status [...] on file 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 Gender Identity Male 03/31/2023 8:02 AM CDT Sexual Orientation Straight 03/31/2023 8: 02 AM CDT Obstetrics History Last Filed Vital Signs Vital Sign Reading Time Taken Comments Blood Pressure 165/72 04/03/2024 8:01 AM CDT Pulse 73 04/03/2024 8:01 AM CDT Temperature 37.2 C (98.9 F) 04/03/2024 8:01 AM CDT Respiratory Rate 16 08/04/2019 12:00 PM CARCASS WASHER Oxygen Saturation 95% 04/03/2024 8:01 AM CDT [...] RADIOLOGY/IMAGING (06/01/2024) Anatomical Region Laterality Modality Other Provider Scanning Edited Result - Final from Last 3 Months Insurance MEDICARE [employer] MEDICARE FOR LIFE Care Teams Junior Web Developer Relationship Specialty Start Date End Date Isabella Reddy MD [address] [facility] GENER[facility] MED, [facility] [address] [place] [address] PCP - General Geriatric Medicine 06/23/24 Gilbert Anderson MD Medical Oncologist/Buccaro Hematology and Oncology 04/19/18
--- OUTSIDE RECORDS SUMMARY | 2024-08-24 00:31 | XMS_ITS | Encounter Summary ---
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
--- NOTE | 2024-08-24 12:08 | PM.IMHP ---
H&P: HPI History of Present Illness Date/Time: 08/24/24 12:08 Chief Complaint: Abdominal wall abscess Narrative: This is an 79-year-old man who presents with a history of diverticulitis with abscess which was treated with a percutaneous drain. He had been doing well and the drain was eventually removed. He has not had any signs of recurrent diverticulitis but recently was having some abdominal pain and feeling unwell. A CT was performed 2 days ago which showed evidence of an abscess in the suprapubic region extending up to the subcutaneous area just inferior to the umbilicus. He now presents for incision and drainage of the abdominal wall abscess. Review of Systems Review of Systems: All systems reviewed & are unremarkable except as noted in HPI and below Constitutional: Constitutional: Denies chills, Denies fever(s), Denies headache(s) and Denies weight loss Eyes: Eyes: Denies change in vision ENT: Denies dizziness, Denies headache(s), Denies neck mass and Denies throat swelling Cardiovascular: Cardiovascular: Denies chest pain, Denies lightheadedness and Denies dyspnea Respiratory: Respiratory: Denies cough, Denies dyspnea and Denies wheezing Gastrointestinal: Gastrointestinal: Denies abdominal pain, Denies change in bowel habits, Denies nausea and Denies vomiting Genitourinary: Genitourinary: Denies hematuria and Denies dysuria Musculoskeletal: Musculoskeletal: Reports as per HPI Integumentary/Breasts: Skin/Breast: Reports as per HPI Neurologic: Denies dizziness and Denies headache(s) Allergic/Immunologic: Allergic/Immunologic: Denies throat swelling and Denies wheezing [facility] Past Medical History Medical History BMI 37.0-37.9, adult Melanoma Arthritis Mild dementia Benign prostatic hyperplasia Benign essential hypertension Chronic GERD Iron deficiency anemia Surgical History Surgical History History of melanoma excision History of bilateral cataract extraction Status post repair of paraesophageal diaphragmatic hernia History of right inguinal hernia repair History of transurethral resection of prostate Family History Family History Mother Hypertension Family history of coronary artery disease Heart disease Father Family history of primary malignant neoplasm of liver Sibling No problems noted. Sibling No problems noted. Social History Social History Social History: Surrogate medical decision maker: Rula Watson, spouse. Code status: Full code. Smoking packs per day: 1 Smoking cigarettes per day: 20.0 Years smoked: 50 Smoking pack-years: 50.00 Smoking status: Former smoker Tobacco type: cigarettes Second hand tobacco smoke exposure: No Smoking end date: 06/14/78 Alcohol intake: current Drinks per week: 3 Substance use: never Substance use type: does not use Do You Feel Safe in your Home?: Yes Lack of Transportation: No Lack of Food: Never True Current Housing: I Have Housing Concerned About Future Housing: No Difficulty Paying Gas/Electric Bills: No Difficulty Paying for Meds: No Currently Unemployed: No Education: Bachelor's Degree Difficulty w/ Childcare or Family Care: No Living arrangements: with family Additional living arrangements comments: Lives with spouse in [place]. Occupation/Education: retired Additional occupation/education comments: Retired [employer]. Gender identity (if verbalized by the patient): Male Spiritual care concerns: No Meds Home Medications and Allergies Home Medications ?Medication ?Instructions ?Recorded ?Confirmed ?Type omeprazole 40 mg capsule,delayed 40 mg PO DAILY #90 caps 04/06/24 08/24/24 Rx release memantine 10 mg tablet 10 mg PO BID #180 tabs 04/17/24 08/24/24 Rx ferrous sulfate 325 mg (65 mg 325 mg PO BID #180 tabs 06/21/24 08/24/24 Rx iron) tablet,delayed release apixaban 5 mg tablet (Eliquis) 5 mg PO BID #180 tabs 07/02/24 08/24/24 Rx bumetanide 1 mg tablet 1 mg PO DAILY #30 tabs 07/24/24 08/24/24 Rx buspirone 10 mg tablet 10 mg PO TID PRN anxiety #45 tabs 08/03/24 08/24/24 Rx sertraline 100 mg tablet 150 mg (1.5 x 100 mg) PO DAILY 08/17/24 08/24/24 Rx #135 tabs Allergies Allergy/AdvReac Type Severity Reaction Status Date / Time venom-wasp Allergy Severe Swelling Verified 08/23/24 14:20 Sulfa (Sulfonamide Allergy Mild Rash Verified 08/23/24 14:20 Antibiotics) Vital Signs Vital Signs - 24 hr 08/24/24 11:53 Temperature 98.8 F Pulse Rate 72 Blood Pressure 110/84 Pulse Oximetry 99 Oxygen Delivery Room Air Exam Const: General: no acute distress and alert Orientation/consciousness: patient oriented x3 HENMT: Head: normocephalic and atraumatic Ears: hearing grossly normal bilaterally Face/Nose/Sinus: Normal nares present Mouth: Yes Normal oral and palatal mucosa present Eyes: Periorbital: periorbital findings normal Sclera: sclerae normal EOM: EOMs intact bilaterally Neck: Neck: normal visual inspection, no lymphadenopathy and trachea midline Chest: Chest palpation & inspection: normal inspection of the chest Resp: Effort & Inspection: normal respiratory effort Auscultation: clear to auscultation bilaterally Cardio: Jugular venous distension: no JVD Rate: regular rate Rhythm: regular rhythm Heart sounds: S1 normal heart sound present and S2 normal heart sound present Peripheral pulses: Peripheral pulses 2+ throughout GI: Inspection: normal to inspection GI Palp: Yes Soft to palpation, Yes Tenderness to palpation present (GI) (Tender just inferior to the umbilicus with some mild fluctuance.), No Guarding due to palpation present (GI) and No Rebound tenderness present Percussion: Yes normal to percussion Auscultation: normal bowel sounds : General: Yes no CVA tenderness Back/Spine/Pelvis: Back: no CVA tenderness Neuro: General: patient oriented x3, no focal motor deficits and CN's II-XI intact bilaterally Cognition (Neuro): normal cognition Speech: normal speech Motor exam (neuro): 5/5 motor strength present throughout Extrem: General: capillary refill normal and no clubbing, cyanosis or edema Assessment and Plan Assessment and plan (1) Abdominal wall abscess: Code(s): L02.211 - Cutaneous abscess of abdominal wall Status: Acute Assessment and Plan: I have recommended incision and drainage of abdominal wall abscess. I have discussed the procedure, risks, benefits, and alternatives with the patient. All questions answered. I discussed being placed in observation postoperatively and possibly needing a longer hospital stay for antibiotics and wound care.
--- NOTE | 2024-08-24 12:11 | WPDHPUPDATE1 ---
History and Physical Update Update Date/Time: 08/24/24 12:11 History and Physical has been reviewed, including an updated exam of the patient. There are NO changes in the patient's condition. Risks, benefits, and alternatives have been discussed and questions answered. Patient agrees to proceed with procedure.
--- NOTE | 2024-08-24 12:58 | P.PNAN_ITS ---
Anes - Initial Pre Proc Eval Procedure: Operation Date: 08/24/24 13:00 Proposed Procedures p Incision and Drainage Abdominal Wall Abscess - Segundo Sanches DO Date/Time: 08/24/24 12:58 Surgeon: Segundo Sanches DO Pre Op Diagnosis: abdominal wall abscess Patient Data Age: 79 Gender: M Height: 1.75 m Weight: 74.2 kg Last Vital Signs Temp 37.1 C 08/24/24 11:53 Pulse 72 08/24/24 11:53 BP 110/84 08/24/24 11:53 Pulse Ox 99 08/24/24 11:53 O2 Del Method Room Air 08/24/24 11:53 Allergies Allergy/AdvReac Type Severity Reaction Status Date / Time venom-wasp Allergy Severe Swelling Verified 08/23/24 14:20 Sulfa (Sulfonamide Allergy Mild Rash Verified 08/23/24 14:20 Antibiotics) Home Medications ?Medication ?Instructions ?Recorded ?Confirmed ?Type omeprazole 40 mg capsule,delayed 40 mg PO DAILY #90 caps 04/06/24 08/24/24 Rx release memantine 10 mg tablet 10 mg PO BID #180 tabs 04/17/24 08/24/24 Rx ferrous sulfate 325 mg (65 mg 325 mg PO BID #180 tabs 06/21/24 08/24/24 Rx iron) tablet,delayed release apixaban 5 mg tablet (Eliquis) 5 mg PO BID #180 tabs 07/02/24 08/24/24 Rx bumetanide 1 mg tablet 1 mg PO DAILY #30 tabs 07/24/24 08/24/24 Rx buspirone 10 mg tablet 10 mg PO TID PRN anxiety #45 tabs 08/03/24 08/24/24 Rx sertraline 100 mg tablet 150 mg (1.5 x 100 mg) PO DAILY 08/17/24 08/24/24 Rx #135 tabs Patient hx anesthesia problems: none Family hx anesthesia problems: none Results Review: All pre-operative results and documents have been reviewed as part of the pre- operative evaluation. [facility] Past Medical History Medical History BMI 37.0-37.9, adult Melanoma Arthritis Mild dementia Benign prostatic hyperplasia Benign essential hypertension Chronic GERD Iron deficiency anemia Surgical History Surgical History History of melanoma excision History of bilateral cataract extraction Status post repair of paraesophageal diaphragmatic hernia History of right inguinal hernia repair History of transurethral resection of prostate Family History Family History Mother Hypertension Family history of coronary artery disease Heart disease Father Family history of primary malignant neoplasm of liver Sibling No problems noted. Sibling No problems noted. Social History Social History Social History: Surrogate medical decision maker: Rula Watson, spouse. Code status: Full code. Smoking packs per day: 1 Smoking cigarettes per day: 20.0 Years smoked: 50 Smoking pack-years: 50.00 Smoking status: Former smoker Tobacco type: cigarettes Second hand tobacco smoke exposure: No Smoking end date: 06/14/78 Alcohol intake: current Drinks per week: 3 Substance use: never Substance use type: does not use Do You Feel Safe in your Home?: Yes Lack of Transportation: No Lack of Food: Never True Current Housing: I Have Housing Concerned About Future Housing: No Difficulty Paying Gas/Electric Bills: No Difficulty Paying for Meds: No Currently Unemployed: No Education: Bachelor's Degree Difficulty w/ Childcare or Family Care: No Living arrangements: with family Additional living arrangements comments: Lives with spouse in [place]. Occupation/Education: retired Additional occupation/education comments: Retired [employer], [employer]. Gender identity (if verbalized by the patient): Male Spiritual care concerns: No Anes - Eval Final PreProcedure Day of Procedure 08/24/24 12:58 Patient weight: normal Heart: regular rate and rhythm Lungs: clear to auscultation Airway: Mallampati scale class II Neurological: alert and oriented Last oral intake: >/= 8 hours ASA classification: III Emergent: no Anesthetic plan: proceed Anesthesia type and monitoring: general LMA and standard monitoring Results Review: All pre-operative results and documents have been reviewed as part of the pre- operative evaluation. Informed Consent: The patient's anesthetic plan and its attendant risks and benefits were discussed with the patient/family/POA. Questions were solicited and answers provided to the satisfaction of the patient/family/POA.
--- NOTE | 2024-08-24 13:03 | SUR.PREOP ---
patient and family given update of delay to OR, understanding stated
[2024-08-24] MEDS: LACTATED RINGERS 1,000 ML 30 ML IV CONT (13:13)
[2024-08-24] MEDS: ceFAZolin 2 GM/D5W 50 ML 2 GM/50 ML BAG IVPB (14:15)
[2024-08-24] MEDS: BUPIVACAINE/EPINEPHRINE 0.5% 50 ML VIAL 30 ML INFILTRATE (14:15)
--- NOTE | 2024-08-24 15:04 | W.PM.PROC2 ---
Procedure Note - Detailed Date of Procedure 08/24/24 Pre-op Diagnosis abdominal wall abscess Post-op Diagnosis Same Procedure Performed Incision and drainage of complex abdominal wall extending to the fascia and rectus muscle Surgeon Segundo Sanches, DO Anesthesia General and Local ( 0.5% bupivacaine with epinephrine) Indications This is an 79-year-old man who presented with a prior history of perforated diverticulitis with abscess. He had undergone percutaneous drainage of the abscess previously and has since had the abscess removed. It has been a couple months since he had any problems, but over the past couple weeks he has noticed increasing pain and feeling unwell. A CT was performed 2 days ago which showed evidence of a new developing abscess extending all the way to the subcutaneous space just inferior to his umbilicus. Discussions were made with the patient about treatment options and decision was made to proceed with incision and drainage of abdominal wall abscess. Findings Incision and drainage of complex abdominal wall abscess was performed. The patient had a small pustule just inferior to the umbilicus with some surrounding induration and then some fluctuance slightly inferior to this. A 4 cm incision was made to open up the abscess cavity. The abscess extended through the subcutaneous tissue and down into the fascia and rectus muscle. A culture swab was used to obtain an anaerobic and aerobic culture. Once the abscess was opened and the purulence fluid was drained, the area was then irrigated with sterile saline and then packed with half-inch iodoform gauze. Description of Procedure Procedure as well as risks, benefits, and alternatives were discussed with the patient. Written consent was obtained and placed in chart prior to procedure. Patient was brought back to surgical suite. He was placed supine on operating table. Time-out was done to confirm patient and procedure. He was then intubated by the anesthesia department. His abdomen was prepped and draped in sterile fashion using chlorhexidine prep. 0.5% bupivacaine with epinephrine was infiltrated locally around the area of swelling in the infraumbilical region. A 4 cm vertical incision was made from the area of fluctuance down just inferior to this area with a 15 blade scalpel. There was some purulence fluid with the was drained. A culture swab was used to obtain anaerobic and aerobic cultures. The loculations were then carefully broken up using a curved hemostat and the abscess cavity was opened up further to allow adequate drainage. The abscess cavity appeared to extend all the way down to the fascia and rectus muscle. After breaking down all the loculations I was able to suction out any remaining purulence fluid. I then irrigated the area with sterile saline. Hemostasis was then achieved with electrocautery. The wound was then packed with half-inch iodoform gauze. 4 x 4 gauze, ABD pad, and Medipore tape were then applied. The patient was then awakened from anesthesia, extubated, and transferred to recovery. Estimated Blood Loss 5 Packing Yes (Half-inch iodoform gauze) Complications No immediate complications Condition Stable Disposition Floor [facility] Billing Surgery - Charge Forward: Surgery Billing
--- NOTE | 2024-08-24 16:21 | ADMGEN ---
This patient, Rodney Watson, was admitted to Medical Room 246-01. Patient/family oriented to hospital policies and general routines including ID bracelet, bed and alarms, visiting hours, pain management, procedures, bathroom and other care routines, personal items, smoking policy, room service/diet, and visiting hours. Information on how to activate the Rapid Response Team has been discussed. Patient/Family are encouraged to report perceived risks to care and to ask questions if they do not understand what they are told or what they should do.
[2024-08-24] MEDS: LACTATED RINGERS 1,000 ML 100 ML IV CONT (17:18)
[2024-08-24] MEDS: FERROUS SULFATE 325 MG TABLET DR PO (17:18)
[2024-08-24] MEDS: MEMANTINE 10 MG TABLET PO (17:18)
[2024-08-24] MEDS: PIPERACILLN/TAZ 3.375GM/NS50ML 3.375 GM/50 ML BAG IVPB ×2 (17:18→23:23)
--- NOTE | 2024-08-24 18:02 | P.CONIM_ITS ---
Assessment and Plan Assessment and plan (1) Abdominal abscess: Status: Acute Assessment and Plan: * CT of the abdomen pelvis from 08/22/2024 revealed a regular abscess in the anterior lower abdomen extending through the anterior abdominal wall into the subcutaneous soft tissues towards the umbilicus measuring up to 7.4 x 4.7 x 4.4 cm, possible mild acute diverticulitis, enlarged prostate, infrarenal abdominal aortic aneurysm measuring 3.2 cm * patient is status post incision and drainage of complex abdominal wall abscess extending to the fascia and rectus muscle by Dr. Sanches today. * continue pain control * continue incentive spirometry while awake * continue SCDs for now, will defer anticoagulation to surgical team (2) Benign essential hypertension: Code(s): I10 - Essential (primary) hypertension Status: Acute Assessment and Plan: * blood pressures ranging 133/63 to 139/74 * patient currently not on any home medication for blood pressure * will monitor for now (3) Iron deficiency anemia: Qualifiers: Iron deficiency anemia type: unspecified iron deficiency Qualified Code(s): D50.9 - Iron deficiency anemia, unspecified Code(s): D50.9 - Iron deficiency anemia, unspecified Status: Acute Assessment and Plan: * continue ferrous sulfate * trend labs * EBL less than 5 mL (4) Pulmonary embolism: Code(s): I26.99 - Other pulmonary embolism without acute cor pulmonale Status: Acute Assessment and Plan: * Eliquis on hold per surgery team, will defer restarting to surgical team (5) CHF (congestive heart failure): Code(s): I50.9 - Heart failure, unspecified Status: Acute Assessment and Plan: * last echo on 06/02/2024 showed normal LV systolic function with an estimated EF of 55-60%, grade 1 diastolic dysfunction, severe pulmonary hypertension with an estimated pulmonary arterial systolic pressure of 66 mmHg, proximal ascending aorta size is mildly dilated at 4.3 cm * continue Bumex (6) Dementia: Qualifiers: Dementia behavioral or psychological symptom: unspecified whether behavioral, psychotic, or mood disturbance or anxiety Dementia severity: unspecified severity Dementia type: unspecified type Qualified Code(s): F03.90 - Unspecified dementia, unspecified severity, without behavioral disturbance, psychotic disturbance, mood disturbance, and anxiety Code(s): F03.90 - Unspecified dementia, unspecified severity, without behavioral disturbance, psychotic disturbance, mood disturbance, and anxiety Status: Chronic Assessment and Plan: * continue Namenda (7) Anxiety: Code(s): F41.9 - Anxiety disorder, unspecified Status: Acute Assessment and Plan: * continue BuSpar (8) Depression: Qualifiers: Depression Type: unspecified Qualified Code(s): F32.A - Depression, unspecified Code(s): F32.A - Depression, unspecified Status: Acute Assessment and Plan: * continue Zoloft HPI Date of Consult Consult date: 08/24/24 Requesting Physician: Segundo Sanches DO Primary Care Provider: Cristi Mullen APRN Consult Narrative Narrative: Rodney Watson is a 79 year old male with a significant past medical history of melanoma, arthritis, mild dementia, BPH status post prostatectomy, hypertension, GERD, iron deficiency anemia, former smoker who presented to the hospital for incision and drainage of complex abdominal wall abscess extending to the fascia and rectus muscle with Dr. Sanches. We were consulted for medical management while inpatient. Review of Systems Review of Systems: All systems reviewed & are unremarkable except as noted in HPI and below PMFSH Past Medical History Medical History CHF (congestive heart failure) BMI 37.0-37.9, adult Melanoma Arthritis Mild dementia Benign prostatic hyperplasia Benign essential hypertension Chronic GERD Iron deficiency anemia Surgical History Surgical History History of melanoma excision History of bilateral cataract extraction Status post repair of paraesophageal diaphragmatic hernia History of right inguinal hernia repair History of transurethral resection of prostate Family History Family History Mother Hypertension Family history of coronary artery disease Heart disease Father Family history of primary malignant neoplasm of liver Sibling No problems noted. Sibling No problems noted. Social History Social History Social History: Surrogate medical decision maker: Rula Watson, spouse. Code status: Full code. Smoking packs per day: 1 Smoking cigarettes per day: 20.0 Years smoked: 50 Smoking pack-years: 50.00 Smoking status: Former smoker Tobacco type: cigarettes Second hand tobacco smoke exposure: No Smoking end date: 06/14/78 Alcohol intake: never Drinks per week: 3 Substance use: never Substance use type: does not use Do You Feel Safe in your Home?: Yes Lack of Transportation: No Lack of Food: Never True Current Housing: I Have Housing Concerned About Future Housing: No Difficulty Paying Gas/Electric Bills: No Difficulty Paying for Meds: No Currently Unemployed: No Education: Bachelor's Degree Difficulty w/ Childcare or Family Care: No Living arrangements: with family Additional living arrangements comments: Lives with spouse in [place]. 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 Gender identity (if verbalized by the patient): Male Spiritual care concerns: No Meds Home Medications and Allergies Home Medications ?Medication ?Instructions ?Recorded ?Confirmed ?Type omeprazole 40 mg capsule,delayed 40 mg PO DAILY #90 caps 04/06/24 08/24/24 Rx release memantine 10 mg tablet 10 mg PO BID #180 tabs 04/17/24 08/24/24 Rx ferrous sulfate 325 mg (65 mg 325 mg PO BID #180 tabs 06/21/24 08/24/24 Rx iron) tablet,delayed release apixaban 5 mg tablet (Eliquis) 5 mg PO BID #180 tabs 07/02/24 08/24/24 Rx bumetanide 1 mg tablet 1 mg PO DAILY #30 tabs 07/24/24 08/24/24 Rx buspirone 10 mg tablet 10 mg PO TID PRN anxiety #45 tabs 08/03/24 08/24/24 Rx sertraline 100 mg tablet 150 mg (1.5 x 100 mg) PO DAILY 08/17/24 08/24/24 Rx #135 tabs Allergies Allergy/AdvReac Type Severity Reaction Status Date / Time venom-wasp Allergy Severe Swelling Verified 08/24/24 16:26 Sulfa (Sulfonamide Allergy Mild Rash Verified 08/24/24 16:26 Antibiotics) Vital Signs Vital Signs - 24 hr 08/24/24 11:53 08/24/24 14:50 08/24/24 15:00 Temperature 98.8 F 98.9 F Pulse Rate 72 73 Respiratory Rate 12 Blood Pressure 110/84 123/85 Pulse Oximetry 99 100 100 Oxygen Delivery Room Air Simple Face Mask Simple Face Mask Oxygen Flow Rate 8 8 08/24/24 15:05 08/24/24 15:20 08/24/24 15:35 Temperature Pulse Rate 78 79 78 Respiratory Rate 20 16 16 Blood Pressure 131/72 111/64 136/78 Pulse Oximetry 100 99 98 Oxygen Delivery Simple Face Mask Room Air Room Air Oxygen Flow Rate 8 08/24/24 15:50 08/24/24 16:00 08/24/24 16:20 Temperature 99.2 F Pulse Rate 75 77 73 Respiratory Rate 16 16 16 Blood Pressure 128/79 139/74 133/63 Pulse Oximetry 97 97 96 Oxygen Delivery Room Air Room Air Oxygen Flow Rate 08/24/24 16:35 08/24/24 17:05 Temperature 99.1 F 99.2 F Pulse Rate 70 66 Respiratory Rate 16 16 Blood Pressure 136/64 132/64 Pulse Oximetry 100 98 Oxygen Delivery Oxygen Flow Rate Exam Narrative: General: In no acute distress, well nourished Head: atraumatic, no encephalopathy Eyes: PERRLA, sclera clear ENT: moist mucous membranes, nasal passages clear Neck: supple, no JVD, no adenopathy, trachea midline Cardiac: Normal S1 and S2. No murmur, gallops or friction rubs, peripheral pulses intact. Respiratory: Lungs clear to auscultation, no adventitious lung sounds, currently on room air Gastrointestinal: soft, non-distended, non-tender, normoactive bowel sounds. : voiding without difficulty. Extremities: moves all extremities well, no edema Skin:OR dressing to lower abdomen with moderate shadowing Neuro: Alert and oriented x4, cranial nerves intact, no neuro deficits. Psych: normal mood, normal affect, interactive Quality VTE Prophylaxis VTE prophylaxis: mechanical ordered Hospitalist MIPS Advance Care Plan I have confirmed that the patient's Advanced Care Plan is present, code status is documented, or surrogate decision maker is listed in patient medical record.: Yes Medication Reconciliation I have utilized all available resources to obtain, update and review the patients current medications (includes all prescriptions, OTC, herbals, cannabis, and nutritional supplements).: Yes
[2024-08-25 00:34] VITALS: BP 138/68; PULSE 60; RESP 16; TEMP 36.8; O2SAT 96
[2024-08-25 04:45] VITALS: BP 118/65; PULSE 65; RESP 16; TEMP 36.9; O2SAT 97
[2024-08-25] MEDS: PIPERACILLN/TAZ 3.375GM/NS50ML 3.375 GM/50 ML BAG IVPB ×4 (05:14→23:21)
[2024-08-25 05:23] LABS: Hematocrit 32.3 % (42.0-52.0); Hemoglobin 10.2 g/dL (14.0-18.0); Mean Corpuscular HGB Conc 31.6 g/dl (32-36); Mean Corpuscular Hemoglobin 28.7 pg (26-34); Mean Platelet Volume 9.5 fl (7.4-10.4); Platelet Count Result 264 k/mm3 (150-375); Red Blood Count 3.55 M/mm3 (4.6-6.20); Red Cell Distribution Width 15.5 % (11.5-14.5); White Blood Count 5.1 K/mm3 (4.5-10.0)
[2024-08-25 05:41] LABS: Anion Gap 4 mmol/L (4-12); Blood Urea Nitrogen 13 mg/dL (9-20); Calcium 8.1 mg/dL (8.4-10.2); Carbon Dioxide 33 mmol/L (22-30); Chloride 103 mmol/L (98-107); Estimated CRCL calculation 56 ml/min; Estimated Glomerular Filt Rate > 60; Glucose 92 mg/dL (65-110); Potassium 2.7 mmol/L (3.4-5.0); Sodium 140 mmol/L (137-145)
[2024-08-25] MEDS: POTASSIUM CHLORIDE 20 MEQ PACKET (FOR LIQUID) 40 MEQ PO (06:04)
[2024-08-25] MEDS: POTASSIUM CHLORIDE INJ 40 MEQ in SODIUM CHLORIDE 0.9% IV 500 ML 130 MEQ IVPB (06:09)
[2024-08-25 06:11] LABS: Magnesium 1.7 mg/dL (1.6-2.3)
[2024-08-25] MEDS: FERROUS SULFATE 325 MG TABLET DR PO ×2 (08:58→17:31)
[2024-08-25] MEDS: PANTOPRAZOLE 40 MG TABLET PO (08:58)
[2024-08-25] MEDS: BUMETANIDE 1 MG TABLET PO (08:58)
[2024-08-25] MEDS: MEMANTINE 10 MG TABLET PO ×2 (08:58→17:31)
[2024-08-25] MEDS: SERTRALINE HCL 50 MG TABLET 150 MG PO (08:58)
[2024-08-25 09:42] VITALS: BP 136/71; PULSE 70; RESP 16; TEMP 36.6; O2SAT 99
--- NOTE | 2024-08-25 11:19 | P.PNGS_ITS ---
Progress Note: A&P Assessment and Plan (1) Abdominal abscess: Status: Acute Assessment and Plan: * Cultures pending. Continue daily packing changes and Zosyn. Hypokalemia this AM, will likely have to remain in hospital until tomorrow to get potassium levels balanced. Appreciate Hospitalist input. Discussed with Care Coordination about disposition planning. Will need daily packing changes wherever patient is discharged to. Could consider Home Health if family able to assist in wound care. (2) Dementia: Qualifiers: Dementia type: unspecified type Dementia severity: unspecified severity Dementia behavioral or psychological symptom: unspecified whether behavioral, psychotic, or mood disturbance or anxiety Qualified Code(s): F03.90 - Unspecified dementia, unspecified severity, without behavioral disturbance, psychotic disturbance, mood disturbance, and anxiety Code(s): F03.90 - Unspecified dementia, unspecified severity, without behavioral disturbance, psychotic disturbance, mood disturbance, and anxiety Status: Chronic (3) Hypokalemia: Code(s): E87.6 - Hypokalemia Status: Acute Assessment and Plan: * Replaced per Hospitalist. Subjective Subjective Date/Time Seen: 08/25/24 11:19 Interval history: Doing well on POD#1. No fevers. Pain controlled. Tolerated packing change at bedside today. Exam Const: General: comfortable and no acute distress GI: Other: Lower midline abscess wound without surrounding erythema. Scant purulent drainage. Packing changed. Objective Data Vital Signs Vital Signs: Vital Signs - 24 hr 08/24/24 11:53 08/24/24 14:50 08/24/24 15:00 Temperature 98.8 F 98.9 F Pulse Rate 72 73 Respiratory Rate 12 Blood Pressure 110/84 123/85 Pulse Oximetry 99 100 100 Oxygen Delivery Room Air Simple Face Mask Simple Face Mask Oxygen Flow Rate 8 8 08/24/24 15:05 08/24/24 15:20 08/24/24 15:35 Temperature Pulse Rate 78 79 78 Respiratory Rate 20 16 16 Blood Pressure 131/72 111/64 136/78 Pulse Oximetry 100 99 98 Oxygen Delivery Simple Face Mask Room Air Room Air Oxygen Flow Rate 8 08/24/24 15:50 08/24/24 16:00 08/24/24 16:20 Temperature 99.2 F Pulse Rate 75 77 73 Respiratory Rate 16 16 16 Blood Pressure 128/79 139/74 133/63 Pulse Oximetry 97 97 96 Oxygen Delivery Room Air Room Air Oxygen Flow Rate 08/24/24 16:35 08/24/24 17:05 08/24/24 18:05 Temperature 99.1 F 99.2 F 98.0 F Pulse Rate 70 66 94 Respiratory Rate 16 16 16 Blood Pressure 136/64 132/64 138/68 Pulse Oximetry 100 98 96 Oxygen Delivery Oxygen Flow Rate 08/24/24 20:51 08/25/24 00:34 08/25/24 04:45 Temperature 98.3 F 98.3 F 98.4 F Pulse Rate 69 60 65 Respiratory Rate 18 16 16 Blood Pressure 118/70 138/68 118/65 Pulse Oximetry 97 96 97 Oxygen Delivery Oxygen Flow Rate 08/25/24 09:42 Temperature 97.8 F Pulse Rate 70 Respiratory Rate 16 Blood Pressure 136/71 Pulse Oximetry 99 Oxygen Delivery Oxygen Flow Rate Intake/Output Intake/Output: Intake & Output 08/22/24 08/23/24 08/24/24 08/25/24 23:59 23:59 23:59 23:59 Intake Total 710 350 Output Total 325 Balance 385 350 Meds/Results Medications: Active Medications Generic Name Dose Route Start Last Admin Trade Name Freq PRN Reason Stop Dose Admin Acetaminophen 500 mg 08/24/24 16:02 Acetaminophen 500 Mg Tablet PO Q6H PRN Pain Rated 1-3 Hydrocodone Bitart/Acetaminophen 1 tab 08/24/24 16:02 Hydrocodone/Acetaminophen (*Crx) 5-325 Mg Tablet PO Q4H PRN Pain Rated 4-6 Bumetanide 1 mg 08/25/24 09:00 08/25/24 08:58 Bumetanide 1 Mg Tablet PO 1 mg DAILY NINFA Administration Buspirone HCl 10 mg 08/24/24 16:02 Buspirone Hcl 10 Mg Tablet PO TID PRN anxiety Ferrous Sulfate 325 mg 08/24/24 17:00 08/25/24 08:58 Ferrous Sulfate [address] PO 325 mg BID NINFA Administration Piperacillin/Tazobactam/Dextrose 3.375 gm in 50 mls @ 100 mls/hr 08/24/24 17 :00 08/25/24 05:14 Zosyn 3.375 Gm/Ns 50 Ml IVPB 100 mls/hr Q6HR NINFA Administration Memantine 10 mg 08/24/24 17:00 08/25/24 08:58 Memantine 10 Mg Tablet PO 10 mg BID NINFA Administration Morphine Sulfate 2 mg 08/24/24 16:02 Morphine Sulfate (*Crx) 2 Mg/Ml Inj IV PUSH Q2H PRN Breakthrough Pain Rated 4-6 or NPO Naloxone HCl 0.1 mg 08/24/24 16:02 Naloxone Hcl 0.4 Mg/Ml Vial IV PUSH Q2M PRN Opiate Reversal Ondansetron HCl 4 mg 08/24/24 16:02 Ondansetron Inj 4 Mg/2 Ml Vial IV PUSH Q4H PRN Nausea And Vomiting Pantoprazole Sodium 40 mg 08/25/24 09:00 08/25/24 08:58 Pantoprazole 40 Mg Tablet PO 40 mg QAM NINFA Administration Sertraline HCl 150 mg 08/25/24 09:00 08/25/24 08:58 Sertraline Hcl 50 Mg Tablet PO 150 mg DAILY NINFA Administration Labs Labs: Laboratory Results - last 24 hr 08/25/24 04:49 WBC 5.1 RBC 3.55 L Hgb 10.2 L Hct 32.3 L MCV 91.0 MCH 28.7 MCHC 31.6 L RDW 15.5 H Plt Count 264 MPV 9.5 Sodium 140 Potassium 2.7 L* Chloride 103 Carbon Dioxide 33 H Anion Gap 4 BUN 13 D Creatinine 0.90 Estim Creat Clear Calc 56 Estimated GFR > 60 Glucose 92 Calcium 8.1 L Magnesium 1.7
--- OUTSIDE RECORDS SUMMARY | 2024-08-25 12:26 | XMS_ITS | Encounter Summary ---
Author Organization [facility] Address [address] [place] [address] Phone Care Team Providers Care Design Painter Name Role Phone Gilbert Anderson MD Unavailable [phone] Brock Ulrich MD Primary Care Provider [phone] Isabella Reddy MD Primary Care Provid er [...] on file Legal Sex Male 9:32 PM ALIGNER Gender Identity Male 03/31/2023 8:02 AM CDT [...] on filedocumented in this encounter Care Teams Design Painter Relationship Specialty Start Date End Date Brock Ulrich MD PCP - General Family Practice 12/18/22 06/22/24 Isabella Reddy MD [address] [facility] [address] [address] PCP - General Geriatric Medicine 06/23/24 Gilbert Anderson MD Medical Oncologist/Thread Drawer Hematology and Oncology 04/19/18 documented as of this encounter
--- OUTSIDE RECORDS SUMMARY | 2024-08-25 12:26 | XMS_ITS | Encounter Summary ---
Author Organization [facility] Address [address] [place] [address] Care Team Providers Care Director Of Anesthesia Services Name Role Phone Gilbert Anderson MD Unavailable [phone] Brock Ulrich MD Primary Care Provider [phone] Isabella Reddy MD Primary Care Provid er Encounter Details Date Type Department Care Team (Late st Contact Info) Description 05/26/[address] [facility] Home Care Services [address] [place] [address] Erinn Bedolla, RN Social History Tobacco Use Types Packs/Day Years Used Date Smoking Tobacco: Former Cigarettes Q uit: 1979 Smokeless Tobacco: Never Alcohol Use Standard Drinks/Week Comments Yes 1 (1 standard drink = 0.6 oz pur e alcohol) Sex and Gender Information Value Date Recorded Sex Assigned at Not on file Legal Sex Male 9:32 PM REEL TENDER Gender Identity Male 03/31/2023 8:02 AM CDT Sexual Orientation Straight 03/31/2023 8: 02 AM CDT documented as of this encounter Plan of Treatment Not on file documented as of this encounter Visit Diagnoses Not on filedocumented in this encounter Care Teams Director Of Anesthesia Services Relationship Specialty Start Date End Date Brock Ulrich MD PCP - General Family Practice 12/18/22 06/22/24 Isabella Reddy MD [address] [facility] GENERAL MED, [facility] [address] [place] [address] PCP - General Geriatric Medicine 06/23/24 Gilbert Anderson MD Medical Oncologist/Hospital Coordinator Hematology and Oncology 04/19/18 documented as of this encounter
--- OUTSIDE RECORDS SUMMARY | 2024-08-25 12:26 | XMS_ITS | Encounter Summary ---
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
--- OUTSIDE RECORDS SUMMARY | 2024-08-25 12:26 | XMS_ITS | Encounter Summary ---
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
--- OUTSIDE RECORDS SUMMARY | 2024-08-25 12:26 | XMS_ITS | Encounter Summary ---
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
--- OUTSIDE RECORDS SUMMARY | 2024-08-25 12:26 | XMS_ITS | Encounter Summary ---
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
--- OUTSIDE RECORDS SUMMARY | 2024-08-25 12:26 | XMS_ITS | Referral Summary ---
Author Organization [facility] Address [address] [place] [address] Phone Care Team Providers Care Glass Handler Name Role Phone Gilbert Anderson MD Unavailable [phone] Isabella Reddy MD Primary Care Provid er Encounters Date Type Department Care Team Description 07/25/2024 Documentation [facility] Memory Diagnostic [place] [id number] [facility] First Floor [address] [place] [address] Halina Fontenot, MACHINE GRINDER 07/11/2024 Orders Only [place] [address] [facility] First Floor [address] [place] [address] Richard Bonner, RMA 06/23/2024 Telephone [facility] Geriatric Medicine [address] [place] [address] Tianna Prakash, TOMMY 06/01/2024 Orders Only [facility] Scanning, Provider 05/29/2024 Telephone [facility] Home Care Services [address] [place] [address] Kal Hunter from Last 3 Months Allergies Active Allergy [...] collected on 02/25/23 consistent with AD - [id number]: 0.060 (H), Ab42 573 (L), t-tau 350 (H), p-tau 34.6 (H) -Diagnosis: AD -Namenda/memantine 10 mg BID, sertraline/Zoloft 100 mg, did not want to pursue anti amyloid therapy -discontinued donepezil/Aricept d/t GI upset, diverticultis, wt loss Assessment & Plan (05/25/2024 10:54 AM INJURY/SAFETY HAZARD ASSESSMENT): Stop donepezil/Aricept due to wt loss, diverticulitis, low appetite Continue Namenda/memantine 10 mg BID Physical therapy and occupational therapy at home Referred to [facility] for primary care ( request) Assessment & Plan (04/03/2024 9:07 AM CDT): -Onset: 2019 -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, moderate WMD -Biomarkers: CSF ADEVL collected on 02/25/23 consistent with AD - [id number]: 0.060 (H), Ab42 573 (L), t-tau 350 (H), p-tau 34.6 (H) -Diagnosis: AD -Relevant medications: donepezil/Aricept 5 mg (GI upset with higher dose), Namenda/memantine 10 mg BID, sertraline/Zoloft 100 mg, did not want to pursue anti amyloid therapy PLAN: Hide car keys Consider increasing sertraline/Zoloft moving forward Increase physical activity, two community centers in [place] 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, 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 Please send referral to 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 [place] benefits Iron deficiency anemia due to chronic blood loss 08/02/2019 Iron deficiency anemia darell vail to inadequate dietary iron intake 04/19/2018 Myocardial [...] on file Legal Sex Male 9:32 PM INJURY/SAFETY HAZARD ASSESSMENT Gender Identity Male 03/31/2023 8:02 AM CDT Sexual Orientation Straight 03/31/2023 8: 02 AM CDT Last Filed Vital Signs Vital Sign Reading Time Taken Comments Blood Pressure 165/72 04/03/2024 8:01 AM CDT Pulse 73 04/03/2024 8:01 AM CDT Temperature 37.2 C (98.9 F) 04/03/2024 8:01 AM CDT Respiratory Rate 16 08/04/2019 12:00 PM INJURY/SAFETY HAZARD ASSESSMENT Oxygen Saturation 95% 04/03/2024 8:01 AM CDT [...] Final from Last 3 Months Insurance MEDICARE [employer] MEDICARE [employer] Care Teams Glass Handler Relationship Specialty Start Date End Date Isabella Reddy MD [address] [facility] [address] [place] [address] PCP - General Geriatric Medicine 06/23/24 Gilbert Anderson MD Medical Oncologist/Animal Assisted Therapist Hematology and Oncology 04/19/18
--- OUTSIDE RECORDS SUMMARY | 2024-08-25 12:26 | XMS_ITS | Encounter Summary ---
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 [address], [place] [address] PCP - General Geriatric Medicine 06/23/24 Gilbert Anderson MD Medical Oncologist/Hand Tool Filer Hematology and Oncology 04/19/18 documented as of this encounter
--- OUTSIDE RECORDS SUMMARY | 2024-08-25 12:26 | XMS_ITS | Encounter Summary ---
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
--- OUTSIDE RECORDS SUMMARY | 2024-08-25 12:26 | XMS_ITS | Clinical Summary ---
Author Organization [facility] Address [address] [facility] [address] [place] [address] Phone Care Team Providers Care Design Supervisor Name Role Phone Gilbert Anderson MD Unavailable [phone] Isabella Reddy MD Primary Care Provid er [...] collected on 02/25/23 consistent with AD - [id number]: 0.060 (H), Ab42 573 (L), t-tau 350 (H), p-tau 34.6 (H) -Diagnosis: AD -Namenda/memantine 10 mg BID, sertraline/Zoloft 100 mg, did not want to pursue anti amyloid therapy -discontinued donepezil/Aricept d/t GI upset, diverticultis, wt loss Assessment & Plan (05/25/2024 10:54 AM SUPERVISOR FEED MILL): Stop donepezil/Aricept due to wt loss, diverticulitis, low appetite Continue Namenda/memantine 10 mg BID Physical therapy and occupational therapy at home Referred to [facility] for primary care ( request) Assessment & Plan (04/03/2024 9:07 AM CDT): -Onset: 2019 -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, moderate WMD -Biomarkers: CSF ADEVL collected on 02/25/23 consistent with AD - [id number]: 0.060 (H), Ab42 573 (L), t-tau 350 (H), p-tau 34.6 (H) -Diagnosis: AD -Relevant medications: donepezil/Aricept 5 mg (GI upset with higher dose), Namenda/memantine 10 mg BID, sertraline/Zoloft 100 mg, did not want to pursue anti amyloid therapy PLAN: Hide car keys Consider increasing sertraline/Zoloft moving forward Increase physical activity, two community centers in [place] 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, 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 [facility] Please send referral to 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 benefits Iron deficiency anemia due to chronic blood loss 08/02/2019 Iron deficiency anemia secon genna to inadequate dietary iron intake 04/19/2018 Myocardial ischemia 05/01/2015 Hiatal hernia 04/26/2015 Encounters Date Type Department Care Team Description 07/25/2024 Documentation [facility] First Floor [address] [place] [id number] Halina Fontenot, E BUSINESS MANAGER 07/11/2024 Orders Only [facility] First Floor [address] [place] [id number] Richard Bonner RMA 06/23/2024 Telephone [facility] Geriatric Medicine [address] [facility] [address] Medical Office Building [address] [place] [address] Tianna Prakash RN 06/01/2024 Orders Only [facility] Scanning, Provider 05/29/2024 Telephone [facility] [address] [place] [address] Kal Hunter from Last 3 Months Immunizations Immunization Administration Dates Next Due Influenza, Trivalent, High D ose, Split, Preservative Free, Intramuscular 04/04/2019,03/27/2018,03/28/2017,04/14,04/07/2015 Influenza, Unspecified 01/30/2014,2012,04/07/2012,03/14 Pneumococcal Conjugate PCV 13 04/07/2015 Pneumococcal Polysaccharide PPV23 04/18/2019 Pneumococcal, Unspecified 04/20/2013 Tdap 04/18/2019 ZOSTER LIVE 03/19/2014,04/20/2012 Surgical History Surgery Date Site/Laterality Comments MOHS SURGERY Chemosurgery (Mohs Micrographic Technique) - (Added by TW Conv) MO TRURL ELECTROSURG RESCJ PROSTATE BLEED COMPLETE Transurethral Resection Of Prostate (TURP) - (Added by TW Conv) [place] UNLISTED PROCEDURE VASCUL AR INJECTION Arterial Catheterization - -cardiac cath in 2007 (Added by TW Conv) [place] COLONOSCOPY FLX DX W/RALEIGH J SPEC WHEN PFRMD Colonoscopy (Fiberoptic) - (Added by TW Conv) [place] ESOPHAGOGASTRODUODENOSCOP Y TRANSORAL DIAGNOSTIC Diagnostic Esophagogastroduodenoscopy - [...] file 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 [address] [place] [address] PCP - General Geriatric Medicine 06/23/24 Gilbert Anderson MD Medical Oncologist/Project Archivist Hematology and Oncology 04/19/18
--- OUTSIDE RECORDS SUMMARY | 2024-08-25 12:26 | XMS_ITS | Encounter Summary ---
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
[2024-08-25 13:47] VITALS: BP 123/77; PULSE 74; RESP 20; TEMP 37.3; O2SAT 98
[2024-08-25 14:19] LABS: Potassium 3.1 mmol/L (3.4-5.0)
--- NOTE | 2024-08-25 15:43 | P.PNIM_ITS ---
Progress Note: A&P Assessment and Plan (1) Abdominal abscess: Status: Acute Assessment and Plan: * CT of the abdomen pelvis from 08/22/2024 revealed a regular abscess in the anterior lower abdomen extending through the anterior abdominal wall into the subcutaneous soft tissues towards the umbilicus measuring up to 7.4 x 4.7 x 4.4 cm, possible mild acute diverticulitis, enlarged prostate, infrarenal abdominal aortic aneurysm measuring 3.2 cm * patient is status post incision and drainage of complex abdominal wall abscess extending to the fascia and rectus muscle by Dr. Sanches . * continue pain control * continue incentive spirometry while awake * continue SCDs for now, will defer anticoagulation to surgical team (2) Benign essential hypertension: Code(s): I10 - Essential (primary) hypertension Status: Acute Assessment and Plan: * blood pressures ranging 133/63 to 139/74 * patient currently not on any home medication for blood pressure * will monitor for now (3) Iron deficiency anemia: Qualifiers: Iron deficiency anemia type: unspecified iron deficiency Qualified Code(s): D50.9 - Iron deficiency anemia, unspecified Code(s): D50.9 - Iron deficiency anemia, unspecified Status: Acute Assessment and Plan: * continue ferrous sulfate * trend labs * EBL less than 5 mL (4) Pulmonary embolism: Code(s): I26.99 - Other pulmonary embolism without acute cor pulmonale Status: Acute Assessment and Plan: * Eliquis on hold per surgery team, will defer restarting to surgical team (5) CHF (congestive heart failure): Code(s): I50.9 - Heart failure, unspecified Status: Acute Assessment and Plan: * last echo on 06/02/2024 showed normal LV systolic function with an estimated EF of 55-60%, grade 1 diastolic dysfunction, severe pulmonary hypertension with an estimated pulmonary arterial systolic pressure of 66 mmHg, proximal ascending aorta size is mildly dilated at 4.3 cm * continue Bumex (6) Dementia: Qualifiers: Dementia behavioral or psychological symptom: unspecified whether behavioral, psychotic, or mood disturbance or anxiety Dementia severity: unspecified severity Dementia type: unspecified type Qualified Code(s): F03.90 - Unspecified dementia, unspecified severity, without behavioral disturbance, psychotic disturbance, mood disturbance, and anxiety Code(s): F03.90 - Unspecified dementia, unspecified severity, without behavioral disturbance, psychotic disturbance, mood disturbance, and anxiety Status: Chronic Assessment and Plan: * continue Namenda (7) Anxiety: Code(s): F41.9 - Anxiety disorder, unspecified Status: Acute Assessment and Plan: * continue BuSpar (8) Depression: Qualifiers: Depression Type: unspecified Qualified Code(s): F32.A - Depression, unspecified Code(s): F32.A - Depression, unspecified Status: Acute Assessment and Plan: * continue Zoloft Subjective Date/time seen: 08/25/24 15:43 Interval history: Patient underwent Incision and drainage of complex abdominal wall extending to the fascia and rectus muscle on 08/24. Patient denies any complaints. Replenished potassium Review of Systems Review of Systems: All systems reviewed & are unremarkable except as noted in HPI and below Exam Narrative: General: In no acute distress, well nourished Head: atraumatic, no encephalopathy Eyes: PERRLA, sclera clear ENT: moist mucous membranes, nasal passages clear Neck: supple, no JVD, no adenopathy, trachea midline Cardiac: Normal S1 and S2. No murmur, gallops or friction rubs, peripheral pulses intact. Respiratory: Lungs clear to auscultation, no adventitious lung sounds, currently on room air Gastrointestinal: soft, non-distended, non-tender, normoactive bowel sounds. : voiding without difficulty. Extremities: moves all extremities well, no edema Skin:OR dressing to lower abdomen with moderate shadowing Neuro: Alert and oriented x4, cranial nerves intact, no neuro deficits. Psych: normal mood, normal affect, interactive Objective Data Vital Signs Vital Signs: Vital Signs - 24 hr 08/24/24 15:50 08/24/24 16:00 08/24/24 16:20 Temperature 99.2 F Pulse Rate 75 77 73 Respiratory Rate 16 16 16 Blood Pressure 128/79 139/74 133/63 Pulse Oximetry 97 97 96 Oxygen Delivery Room Air Room Air 08/24/24 16:35 08/24/24 17:05 08/24/24 18:05 Temperature 99.1 F 99.2 F 98.0 F Pulse Rate 70 66 94 Respiratory Rate 16 16 16 Blood Pressure 136/64 132/64 138/68 Pulse Oximetry 100 98 96 Oxygen Delivery 08/24/24 20:51 08/25/24 00:34 08/25/24 04:45 Temperature 98.3 F 98.3 F 98.4 F Pulse Rate 69 60 65 Respiratory Rate 18 16 16 Blood Pressure 118/70 138/68 118/65 Pulse Oximetry 97 96 97 Oxygen Delivery 08/25/24 09:00 08/25/24 09:42 08/25/24 13:47 Temperature 97.8 F 99.2 F Pulse Rate 70 74 Respiratory Rate 16 20 Blood Pressure 136/71 123/77 Pulse Oximetry 99 98 Oxygen Delivery Room Air Intake/Output Intake/Output: Intake & Output 08/22/24 08/23/24 08/24/24 08/25/24 23:59 23:59 23:59 23:59 Intake Total 710 690 Output Total 325 Balance 385 690 Meds/Results Medications: Active Medications Generic Name Dose Route Start Last Admin Trade Name Freq PRN Reason Stop Dose Admin Acetaminophen 500 mg 08/24/24 16:02 Acetaminophen 500 Mg Tablet PO Q6H PRN Pain Rated 1-3 Hydrocodone Bitart/Acetaminophen 1 tab 08/24/24 16:02 Hydrocodone/Acetaminophen (*Crx) 5-325 Mg Tablet PO Q4H PRN Pain Rated 4-6 Bumetanide 1 mg 08/25/24 09:00 08/25/24 08:58 Bumetanide 1 Mg Tablet PO 1 mg DAILY NINFA Administration Buspirone HCl 10 mg 08/24/24 16:02 Buspirone Hcl 10 Mg Tablet PO TID PRN anxiety Ferrous Sulfate 325 mg 08/24/24 17:00 08/25/24 08:58 Ferrous Sulfate [address] PO 325 mg BID NINFA Administration Piperacillin/Tazobactam/Dextrose 3.375 gm in 50 mls @ 100 mls/hr 08/24/24 17:00 08/25/24 12:19 Zosyn 3.375 Gm/Ns 50 Ml IVPB 100 mls/hr Q6HR NINFA Administration Memantine 10 mg 08/24/24 17:00 08/25/24 08:58 Memantine 10 Mg Tablet PO 10 mg BID NINFA Administration Morphine Sulfate 2 mg 08/24/24 16:02 Morphine Sulfate (*Crx) 2 Mg/Ml Inj IV PUSH Q2H PRN Breakthrough Pain Rated 4-6 or NPO Naloxone HCl 0.1 mg 08/24/24 16:02 Naloxone Hcl 0.4 Mg/Ml Vial IV PUSH Q2M PRN Opiate Reversal Ondansetron HCl 4 mg 08/24/24 16:02 Ondansetron Inj 4 Mg/2 Ml Vial IV PUSH Q4H PRN Nausea And Vomiting Pantoprazole Sodium 40 mg 08/25/24 09:00 08/25/24 08:58 Pantoprazole 40 Mg Tablet PO 40 mg QAM NINFA Administration Sertraline HCl 150 mg 08/25/24 09:00 08/25/24 08:58 Sertraline Hcl 50 Mg Tablet PO 150 mg DAILY NINFA Administration Labs Labs: Laboratory Results - last 24 hr 08/25/24 08/25/24 04:49 13:47 WBC 5.1 RBC 3.55 L Hgb 10.2 L Hct 32.3 L MCV 91.0 MCH 28.7 MCHC 31.6 L RDW 15.5 H Plt Count 264 MPV 9.5 Sodium 140 Potassium 2.7 L* 3.1 L Chloride 103 Carbon Dioxide 33 H Anion Gap 4 BUN 13 D Creatinine 0.90 Estim Creat Clear Calc 56 Estimated GFR > 60 Glucose 92 Calcium 8.1 L Magnesium 1.7 Quality VTE Prophylaxis VTE prophylaxis: mechanical ordered Hospitalist [facility] Advance Care Plan I have confirmed that the patient's Advanced Care Plan is present, code status is documented, or surrogate decision maker is listed in patient medical record.: Yes Medication Reconciliation I have utilized all available resources to obtain, update and review the patients current medications (includes all prescriptions, OTC, herbals, cannabis, and nutritional supplements).: Yes
[2024-08-25] MEDS: POTASSIUM CHLORIDE 20 MEQ ER TABLET 60 MEQ PO (16:49)
[2024-08-25 17:47] VITALS: BP 111/58; PULSE 83; RESP 20; TEMP 37.4; O2SAT 99
[2024-08-25 21:18] VITALS: BP 135/71; PULSE 61; RESP 16; TEMP 37.1; O2SAT 94
[2024-08-25] MEDS: HYDROcodone/acetaminophen (*CRX) 5-325 MG TABLET 1 TAB PO (21:23)
[2024-08-26 05:50] LABS: Hematocrit 31.3 % (42.0-52.0); Hemoglobin 9.9 g/dL (14.0-18.0); Mean Corpuscular HGB Conc 31.6 g/dl (32-36); Mean Corpuscular Hemoglobin 29.1 pg (26-34); Mean Corpuscular Volume 92.1 fl (80-100); Mean Platelet Volume 9.5 fl (7.4-10.4); Platelet Count Result 251 k/mm3 (150-375); Red Cell Distribution Width 15.6 % (11.5-14.5); White Blood Count 4.9 K/mm3 (4.5-10.0)
[2024-08-26] MEDS: PIPERACILLN/TAZ 3.375GM/NS50ML 3.375 GM/50 ML BAG IVPB ×3 (05:58→17:56)
[2024-08-26 06:07] LABS: Alanine Aminotransferase 14 U/L (6-50); Albumin Level 2.8 g/dL (3.5-5.1); Alkaline Phosphatase 80 U/L (38-126); Anion Gap 5 mmol/L (4-12); Aspartate Amino Transferase 19 U/L (17-59); Bilirubin,Total 0.4 mg/dL (0.2-1.3); Blood Urea Nitrogen 9 mg/dL (9-20); Calcium 8.1 mg/dL (8.4-10.2); Carbon Dioxide 31 mmol/L (22-30); Chloride 104 mmol/L (98-107); Estimated CRCL calculation 65 ml/min; Estimated Glomerular Filt Rate > 60; Glucose 90 mg/dL (65-110); Magnesium 1.8 mg/dL (1.6-2.3); Sodium 140 mmol/L (137-145)
[2024-08-26 06:50] VITALS: BP 132/68; PULSE 65; RESP 16; TEMP 36.4; O2SAT 97
--- NOTE | 2024-08-26 07:38 | P.PNIM_ITS ---
Progress Note: A&P Assessment and Plan (1) Abdominal abscess: Status: Acute Assessment and Plan: * CT of the abdomen pelvis from 08/22/2024 revealed a regular abscess in the anterior lower abdomen extending through the anterior abdominal wall into the subcutaneous soft tissues towards the umbilicus measuring up to 7.4 x 4.7 x 4.4 cm, possible mild acute diverticulitis, enlarged prostate, infrarenal abdominal aortic aneurysm measuring 3.2 cm * patient is status post incision and drainage of complex abdominal wall abscess extending to the fascia and rectus muscle by Dr. Sanches . * continue pain control * continue incentive spirometry while awake * continue SCDs for now, will defer anticoagulation to surgical team (2) Benign essential hypertension: Code(s): I10 - Essential (primary) hypertension Status: Acute Assessment and Plan: * blood pressures ranging 133/63 to 139/74 * patient currently not on any home medication for blood pressure * will monitor for now (3) Iron deficiency anemia: Qualifiers: Iron deficiency anemia type: unspecified iron deficiency Qualified Code(s): D50.9 - Iron deficiency anemia, unspecified Code(s): D50.9 - Iron deficiency anemia, unspecified Status: Acute Assessment and Plan: * continue ferrous sulfate * trend labs * EBL less than 5 mL (4) Pulmonary embolism: Code(s): I26.99 - Other pulmonary embolism without acute cor pulmonale Status: Acute Assessment and Plan: * Eliquis on hold per surgery team, will defer restarting to surgical team (5) CHF (congestive heart failure): Code(s): I50.9 - Heart failure, unspecified Status: Acute Assessment and Plan: * last echo on 06/02/2024 showed normal LV systolic function with an estimated EF of 55-60%, grade 1 diastolic dysfunction, severe pulmonary hypertension with an estimated pulmonary arterial systolic pressure of 66 mmHg, proximal ascending aorta size is mildly dilated at 4.3 cm * continue Bumex (6) Dementia: Qualifiers: Dementia behavioral or psychological symptom: unspecified whether behavioral, psychotic, or mood disturbance or anxiety Dementia severity: unspecified severity Dementia type: unspecified type Qualified Code(s): F03.90 - Unspecified dementia, unspecified severity, without behavioral disturbance, psychotic disturbance, mood disturbance, and anxiety Code(s): F03.90 - Unspecified dementia, unspecified severity, without behavioral disturbance, psychotic disturbance, mood disturbance, and anxiety Status: Chronic Assessment and Plan: * continue Namenda (7) Anxiety: Code(s): F41.9 - Anxiety disorder, unspecified Status: Acute Assessment and Plan: * continue BuSpar (8) Depression: Qualifiers: Depression Type: unspecified Qualified Code(s): F32.A - Depression, unspecified Code(s): F32.A - Depression, unspecified Status: Acute Assessment and Plan: * continue Zoloft Subjective Date/time seen: 08/26/24 07:38 Interval history: Patient was little confused today. Sitter was in the room for redirecting him. Replaced potassium and magnesium. Monitoring cultures Review of Systems Review of Systems: All systems reviewed & are unremarkable except as noted in HPI and below Exam Narrative: General: In no acute distress, well nourished Head: atraumatic, no encephalopathy Eyes: PERRLA, sclera clear ENT: moist mucous membranes, nasal passages clear Neck: supple, no JVD, no adenopathy, trachea midline Cardiac: Normal S1 and S2. No murmur, gallops or friction rubs, peripheral pulses intact. Respiratory: Lungs clear to auscultation, no adventitious lung sounds, currently on room air Gastrointestinal: soft, non-distended, non-tender, normoactive bowel sounds. : voiding without difficulty. Extremities: moves all extremities well, no edema Skin:OR dressing to lower abdomen with moderate shadowing Neuro: Alert and oriented x4, cranial nerves intact, no neuro deficits. Psych: normal mood, normal affect, interactive Objective Data Vital Signs Vital Signs: Vital Signs - 24 hr 08/25/24 09:00 08/25/24 09:42 08/25/24 13:47 Temperature 97.8 F 99.2 F Pulse Rate 70 74 Respiratory Rate 16 20 Blood Pressure 136/71 123/77 Pulse Oximetry 99 98 Oxygen Delivery Room Air 08/25/24 17:47 08/25/24 21:18 08/26/24 06:50 Temperature 99.4 F 98.8 F 97.6 F Pulse Rate 83 61 65 Respiratory Rate 20 16 16 Blood Pressure 111/58 L 135/71 132/68 Pulse Oximetry 99 94 97 Oxygen Delivery Intake/Output Intake/Output: Intake & Output 08/23/24 08/24/24 08/25/2425 23:59 23:59 23:59 23:59 Intake Total 710 960 Output Total 325 Balance 385 960 Meds/Results Medications: Active Medications Generic Name Dose Route Start Last Admin Trade Name Freq PRN Reason Stop Dose Admin Acetaminophen 500 mg 08/24/24 16:02 Acetaminophen 500 Mg Tablet PO Q6H PRN Pain Rated 1-3 Hydrocodone Bitart/Acetaminophen 1 tab 08/24/24 16:02 08/25/24 21:23 Hydrocodone/Acetaminophen (*Crx) 5-325 Mg Tablet PO 1 tab Q4H PRN Administration Pain Rated 4-6 Bumetanide 1 mg 08/25/24 09:00 08/25/24 08:58 Bumetanide 1 Mg Tablet PO 1 mg DAILY NINFA Administration Buspirone HCl 10 mg 08/24/24 16:02 Buspirone Hcl 10 Mg Tablet PO TID PRN anxiety Ferrous Sulfate 325 mg 08/24/24 17:00 08/25/24 17:31 Ferrous Sulfate [address] PO 325 mg BID NINFA Administration Piperacillin/Tazobactam/Dextrose 3.375 gm in 50 mls @ 100 mls/hr 08/24/24 17:00 08/26/24 05:58 Zosyn 3.375 Gm/Ns 50 Ml IVPB 100 mls/hr Q6HR NINFA Administration Memantine 10 mg 08/24/24 17:00 08/25/24 17:31 Memantine 10 Mg Tablet PO 10 mg BID NINFA Administration Morphine Sulfate 2 mg 08/24/24 16:02 Morphine Sulfate (*Crx) 2 Mg/Ml Inj IV PUSH Q2H PRN Breakthrough Pain Rated 4-6 or NPO Naloxone HCl 0.1 mg 08/24/24 16:02 Naloxone Hcl 0.4 Mg/Ml Vial IV PUSH Q2M PRN Opiate Reversal Ondansetron HCl 4 mg 08/24/24 16:02 Ondansetron Inj 4 Mg/2 Ml Vial IV PUSH Q4H PRN Nausea And Vomiting Pantoprazole Sodium 40 mg 08/25/24 09:00 08/25/24 08:58 Pantoprazole 40 Mg Tablet PO 40 mg QAM NINFA Administration Sertraline HCl 150 mg 08/25/24 09:00 08/25/24 08:58 Sertraline Hcl 50 Mg Tablet PO 150 mg DAILY NINFA Administration Labs Labs: Laboratory Results - last 24 hr 08/25/24 08/26/24 13:47 05:36 WBC 4.9 RBC 3.40 L Hgb 9.9 L Hct 31.3 L MCV 92.1 MCH 29.1 MCHC 31.6 L RDW 15.6 H Plt Count 251 MPV 9.5 Sodium 140 Potassium 3.1 L 3.0 L Chloride 104 Carbon Dioxide 31 H Anion Gap 5 BUN 9 Creatinine 0.77 Estim Creat Clear Calc 65 Estimated GFR > 60 Glucose 90 Calcium 8.1 L Magnesium 1.8 Total Bilirubin 0.4 AST 19 ALT 14 Alkaline Phosphatase 80 Total Protein 6.0 L Albumin 2.8 L Quality VTE Prophylaxis VTE prophylaxis: mechanical ordered Hospitalist [facility] Advance Care Plan I have confirmed that the patient's Advanced Care Plan is present, code status is documented, or surrogate decision maker is listed in patient medical record.: Yes Medication Reconciliation I have utilized all available resources to obtain, update and review the patients current medications (includes all prescriptions, OTC, herbals, cannabis, and nutritional supplements).: Yes
[2024-08-26] MEDS: SERTRALINE HCL 50 MG TABLET 150 MG PO (10:35)
[2024-08-26] MEDS: FERROUS SULFATE 325 MG TABLET DR PO ×2 (10:35→17:56)
[2024-08-26] MEDS: PANTOPRAZOLE 40 MG TABLET PO (10:35)
[2024-08-26] MEDS: BUMETANIDE 1 MG TABLET PO (10:35)
[2024-08-26] MEDS: MEMANTINE 10 MG TABLET PO ×2 (10:35→17:56)
[2024-08-26] MEDS: MAGNESIUM SULF 1 GM/D5W 100 ML 1 GM/100 ML BAG IVPB (10:36)
[2024-08-26] MEDS: POTASSIUM CHLORIDE 20 MEQ ER TABLET 80 MEQ PO (10:36)
[2024-08-26 13:39] LABS: Potassium 3.9 mmol/L (3.4-5.0)
[2024-08-26 16:05] VITALS: BP 115/63; PULSE 70; RESP 16; TEMP 36.8; O2SAT 99
--- NOTE | 2024-08-26 16:26 | P.PN_ITS ---
Progress Note: A&P Assessment and Plan (1) Abdominal abscess: Status: Acute Assessment and Plan: Status post incision and drainage. Wound is being packed presently with half- inch iodoform gauze daily. No nonviable tissue in the wound. Not really any granulation tissue forming yet. Does not need any further drainage or debridement at this time. We will continue packing the wound daily for now. I have discussed teaching the patient is had to do a packing change at the [facility] care facility at the patient is staying at. If she cannot do it and home health nurses will not come daily for dressing change then we will need to consider [facility] facility for wound care. To try to teach the patient over the weekend to see if we can get him home with home health nursing. Subjective Date/time seen: 08/26/24 16:26 Interval history: Patient is doing well. No complaints. Status post incision and drainage of lower abdominal wall abscess. Nurses change the dressing once earlier today and stated there was quite a bit of drainage and purulence. I change the dressing at the bedside again and it was much pattern cleaner. No bleeding. Minimal redness around the incision. No induration. White blood cell count remains normal. Exam GI: Other: Lower abdominal wall midline abscess wound is presently clean. No bleeding. Minimal granulation tissue at the base. No nonviable tissue. No spreading redness and minimal induration. Objective Data Vital Signs Vital Signs: Vital Signs - 24 hr 08/25/24 17:47 08/25/24 21:18 08/26/24 06:50 Temperature 37.4 C 37.1 C 36.4 C Pulse Rate 83 61 65 Respiratory Rate 20 16 16 Blood Pressure 111/58 L 135/71 132/68 Pulse Oximetry 99 94 97 Oxygen Delivery 08/26/24 10:30 08/26/24 16:05 Temperature 36.8 C Pulse Rate 70 Respiratory Rate 16 Blood Pressure 115/63 Pulse Oximetry 99 Oxygen Delivery Room Air Intake/Output Intake/Output: Intake & Output 08/23/24 08/24/24 08/25/24 08/26/24 23:59 23:59 23:59 23:59 Intake Total 710 960 630 Output Total 325 Balance 385 960 630 Meds/Results Medications: Active Medications Generic Name Dose Route Start Last Admin Trade Name Freq PRN Reason Stop Dose Admin Acetaminophen 500 mg 08/24/24 16:02 Acetaminophen 500 Mg Tablet PO Q6H PRN Pain Rated 1-3 Hydrocodone Bitart/Acetaminophen 1 tab 08/24/24 16:02 08/25/24 21:23 Hydrocodone/Acetaminophen (*Crx) 5-325 Mg Tablet PO 1 tab Q4H PRN Administration Pain Rated 4-6 Bumetanide 1 mg 08/25/24 09:00 08/26/24 10:35 Bumetanide 1 Mg Tablet PO 1 mg DAILY NINFA Administration Buspirone HCl 10 mg 08/24/24 16:02 Buspirone Hcl 10 Mg Tablet PO TID PRN anxiety Ferrous Sulfate 325 mg 08/24/24 17:00 08/26/24 10:35 Ferrous Sulfate [address] PO 325 mg BID NINFA Administration Piperacillin/Tazobactam/Dextrose 3.375 gm in 50 mls @ 100 mls/hr 08/24/24 17:00 08/26/24 11:53 Zosyn 3.375 Gm/Ns 50 Ml IVPB 100 mls/hr Q6HR NINFA Administration Memantine 10 mg 08/24/24 17:00 08/26/24 10:35 Memantine 10 Mg Tablet PO 10 mg BID NINFA Administration Morphine Sulfate 2 mg 08/24/24 16:02 Morphine Sulfate (*Crx) 2 Mg/Ml Inj IV PUSH Q2H PRN Breakthrough Pain Rated 4-6 or NPO Naloxone HCl 0.1 mg 08/24/24 16:02 Naloxone Hcl 0.4 Mg/Ml Vial IV PUSH Q2M PRN Opiate Reversal Ondansetron HCl 4 mg 08/24/24 16:02 Ondansetron Inj 4 Mg/2 Ml Vial IV PUSH Q4H PRN Nausea And Vomiting Pantoprazole Sodium 40 mg 08/25/24 09:00 08/26/24 10:35 Pantoprazole 40 Mg Tablet PO 40 mg QAM NINFA Administration Sertraline HCl 150 mg 08/25/24 09:00 08/26/24 10:35 Sertraline Hcl 50 Mg Tablet PO 150 mg DAILY NINFA Administration Labs Labs: Laboratory Results - last 24 hr 08/26/24 08/26/24 05:36 13:02 WBC 4.9 RBC 3.40 L Hgb 9.9 L Hct 31.3 L MCV 92.1 MCH 29.1 MCHC 31.6 L RDW 15.6 H Plt Count 251 MPV 9.5 Sodium 140 Potassium 3.0 L 3.9 Chloride 104 Carbon Dioxide 31 H Anion Gap 5 BUN 9 Creatinine 0.77 Estim Creat Clear Calc 65 Estimated GFR > 60 Glucose 90 Calcium 8.1 L Magnesium 1.8 2.0 Total Bilirubin 0.4 AST 19 ALT 14 Alkaline Phosphatase 80 Total Protein 6.0 L Albumin 2.8 L
[2024-08-27] MEDS: PIPERACILLN/TAZ 3.375GM/NS50ML 3.375 GM/50 ML BAG IVPB ×2 (00:30→05:54)
[2024-08-27 04:47] VITALS: BP 140/86; PULSE 71; RESP 16; TEMP 36.7; O2SAT 100
[2024-08-27 05:20] LABS: Hematocrit 34.8 % (42.0-52.0); Hemoglobin 10.8 g/dL (14.0-18.0); Mean Corpuscular Hemoglobin 28.7 pg (26-34); Mean Corpuscular Volume 92.6 fl (80-100); Mean Platelet Volume 9.6 fl (7.4-10.4); Platelet Count Result 284 k/mm3 (150-375); Red Blood Count 3.76 M/mm3 (4.6-6.20); Red Cell Distribution Width 15.5 % (11.5-14.5); White Blood Count 5.2 K/mm3 (4.5-10.0)
[2024-08-27 05:34] LABS: Alanine Aminotransferase 16 U/L (6-50); Albumin Level 3.1 g/dL (3.5-5.1); Alkaline Phosphatase 87 U/L (38-126); Anion Gap 3 mmol/L (4-12); Aspartate Amino Transferase 21 U/L (17-59); Bilirubin,Total 0.3 mg/dL (0.2-1.3); Blood Urea Nitrogen 13 mg/dL (9-20); Calcium 8.3 mg/dL (8.4-10.2); Carbon Dioxide 32 mmol/L (22-30); Chloride 105 mmol/L (98-107); Estimated CRCL calculation 50 ml/min; Estimated Glomerular Filt Rate > 60; Glucose 103 mg/dL (65-110); Potassium 3.6 mmol/L (3.4-5.0); Sodium 140 mmol/L (137-145)
--- NOTE | 2024-08-27 08:12 | P.PNIM_ITS ---
Progress Note: A&P Assessment and Plan (1) Abdominal abscess: Status: Acute Assessment and Plan: * CT of the abdomen pelvis from 08/22/2024 revealed a regular abscess in the anterior lower abdomen extending through the anterior abdominal wall into the subcutaneous soft tissues towards the umbilicus measuring up to 7.4 x 4.7 x 4.4 cm, possible mild acute diverticulitis, enlarged prostate, infrarenal abdominal aortic aneurysm measuring 3.2 cm * patient is status post incision and drainage of complex abdominal wall abscess extending to the fascia and rectus muscle by Dr. Sanches . * continue pain control * continue incentive spirometry while awake * continue SCDs for now, will defer anticoagulation to surgical team (2) Benign essential hypertension: Code(s): I10 - Essential (primary) hypertension Status: Acute Assessment and Plan: * blood pressures ranging 133/63 to 139/74 * patient currently not on any home medication for blood pressure * will monitor for now (3) Iron deficiency anemia: Qualifiers: Iron deficiency anemia type: unspecified iron deficiency Qualified Code(s): D50.9 - Iron deficiency anemia, unspecified Code(s): D50.9 - Iron deficiency anemia, unspecified Status: Acute Assessment and Plan: * continue ferrous sulfate * trend labs * EBL less than 5 mL (4) Pulmonary embolism: Code(s): I26.99 - Other pulmonary embolism without acute cor pulmonale Status: Acute Assessment and Plan: * Eliquis on hold per surgery team, will defer restarting to surgical team (5) CHF (congestive heart failure): Code(s): I50.9 - Heart failure, unspecified Status: Acute Assessment and Plan: * last echo on 06/02/2024 showed normal LV systolic function with an estimated EF of 55-60%, grade 1 diastolic dysfunction, severe pulmonary hypertension with an estimated pulmonary arterial systolic pressure of 66 mmHg, proximal ascending aorta size is mildly dilated at 4.3 cm * continue Bumex (6) Dementia: Qualifiers: Dementia behavioral or psychological symptom: unspecified whether behavioral, psychotic, or mood disturbance or anxiety Dementia severity: unspecified severity Dementia type: unspecified type Qualified Code(s): F03.90 - Unspecified dementia, unspecified severity, without behavioral disturbance, psychotic disturbance, mood disturbance, and anxiety Code(s): F03.90 - Unspecified dementia, unspecified severity, without behavioral disturbance, psychotic disturbance, mood disturbance, and anxiety Status: Chronic Assessment and Plan: * continue Namenda (7) Anxiety: Code(s): F41.9 - Anxiety disorder, unspecified Status: Acute Assessment and Plan: * continue BuSpar (8) Depression: Qualifiers: Depression Type: unspecified Qualified Code(s): F32.A - Depression, unspecified Code(s): F32.A - Depression, unspecified Status: Acute Assessment and Plan: * continue Zoloft Subjective Date/time seen: 08/27/24 08:12 Interval history: Discussed with the surgery and agrees to continue Eliquis. Patient is discharged by surgery. Patient was evaluated the bedside and denies any complaints and he is better oriented today than yesterday. Review of Systems Review of Systems: All systems reviewed & are unremarkable except as noted in HPI and below Exam Narrative: General: In no acute distress, well nourished Head: atraumatic, no encephalopathy Eyes: PERRLA, sclera clear ENT: moist mucous membranes, nasal passages clear Neck: supple, no JVD, no adenopathy, trachea midline Cardiac: Normal S1 and S2. No murmur, gallops or friction rubs, peripheral pulses intact. Respiratory: Lungs clear to auscultation, no adventitious lung sounds, currently on room air Gastrointestinal: soft, non-distended, non-tender, normoactive bowel sounds. : voiding without difficulty. Extremities: moves all extremities well, no edema Skin:OR dressing to lower abdomen with moderate shadowing Neuro: Alert and oriented x4, cranial nerves intact, no neuro deficits. Psych: normal mood, normal affect, interactive Objective Data Vital Signs Vital Signs: Vital Signs - 24 hr 08/26/24 10:30 08/26/24 16:05 08/27/24 04:47 Temperature 98.3 F 98.0 F Pulse Rate 70 71 Respiratory Rate 16 16 Blood Pressure 115/63 140/86 Pulse Oximetry 99 100 Oxygen Delivery Room Air Intake/Output Intake/Output: Intake & Output 08/24/24 08/25/24 08/26/24 08/27/24 23:59 23:59 23:59 23:59 Intake Total 369 415 4790 100 Output Total 325 Balance 869 114 1989 100 Meds/Results Medications: Active Medications Generic Name Dose Route Start Last Admin Trade Name Freq PRN Reason Stop Dose Admin Acetaminophen 500 mg 08/24/24 16:02 Acetaminophen 500 Mg Tablet PO Q6H PRN Pain Rated 1-3 Hydrocodone Bitart/Acetaminophen 1 tab 08/24/24 16:02 08/25/24 21:23 Hydrocodone/Acetaminophen (*Crx) 5-325 Mg Tablet PO 1 tab Q4H PRN Administration Pain Rated 4-6 Bumetanide 1 mg 08/25/24 09:00 08/26/24 10:35 Bumetanide 1 Mg Tablet PO 1 mg DAILY NINFA Administration Buspirone HCl 10 mg 08/24/24 16:02 Buspirone Hcl 10 Mg Tablet PO TID PRN anxiety Ferrous Sulfate 325 mg 08/24/24 17:00 08/26/24 17:56 Ferrous Sulfate [address] PO 325 mg BID NINFA Administration Piperacillin/Tazobactam/Dextrose 3.375 gm in 50 mls @ 100 mls/hr 08/24/24 17:00 08/27/24 06:41 Zosyn 3.375 Gm/Ns 50 Ml IVPB Infused Q6HR NINFA Infusion Memantine 10 mg 08/24/24 17:00 08/26/24 17:56 Memantine 10 Mg Tablet PO 10 mg BID NINFA Administration Morphine Sulfate 2 mg 08/24/24 16:02 Morphine Sulfate (*Crx) 2 Mg/Ml Inj IV PUSH Q2H PRN Breakthrough Pain Rated 4-6 or NPO Naloxone HCl 0.1 mg 08/24/24 16:02 Naloxone Hcl 0.4 Mg/Ml Vial IV PUSH Q2M PRN Opiate Reversal Ondansetron HCl 4 mg 08/24/24 16:02 Ondansetron Inj 4 Mg/2 Ml Vial IV PUSH Q4H PRN Nausea And Vomiting Pantoprazole Sodium 40 mg 08/25/24 09:00 08/26/24 10:35 Pantoprazole 40 Mg Tablet PO 40 mg QAM NINFA Administration Sertraline HCl 150 mg 08/25/24 09:00 08/26/24 10:35 Sertraline Hcl 50 Mg Tablet PO 150 mg DAILY NINFA Administration Labs Labs: Laboratory Results - last 24 hr 08/26/24 08/27/24 13:02 05:00 WBC 5.2 RBC 3.76 L Hgb 10.8 L Hct 34.8 L MCV 92.6 MCH 28.7 MCHC 31.0 L RDW 15.5 H Plt Count 284 MPV 9.6 Sodium 140 Potassium 3.9 3.6 Chloride 105 Carbon Dioxide 32 H Anion Gap 3 L BUN 13 Creatinine 1.03 Estim Creat Clear Calc 50 Estimated GFR > 60 Glucose 103 Calcium 8.3 L Magnesium 2.0 Total Bilirubin 0.3 AST 21 ALT 16 Alkaline Phosphatase 87 Total Protein 6.0 L Albumin 3.1 L Quality VTE Prophylaxis VTE prophylaxis: mechanical ordered Hospitalist [facility] Advance Care Plan I have confirmed that the patient's Advanced Care Plan is present, code status is documented, or surrogate decision maker is listed in patient medical record.: Yes Medication Reconciliation I have utilized all available resources to obtain, update and review the patients current medications (includes all prescriptions, OTC, herbals, cannabis, and nutritional supplements).: Yes
[2024-08-27] MEDS: SERTRALINE HCL 50 MG TABLET 150 MG PO (08:28)
[2024-08-27] MEDS: BUMETANIDE 1 MG TABLET PO (08:28)
[2024-08-27] MEDS: MEMANTINE 10 MG TABLET PO (08:28)
[2024-08-27] MEDS: FERROUS SULFATE 325 MG TABLET DR PO (08:28)
[2024-08-27] MEDS: POTASSIUM CHLORIDE 20 MEQ ER TABLET 40 MEQ PO (08:28)
[2024-08-27] MEDS: PANTOPRAZOLE 40 MG TABLET PO (08:28)
--- NOTE | 2024-08-27 10:44 | P.PN_ITS ---
Progress Note: A&P Assessment and Plan (1) Abdominal abscess: Status: Acute Assessment and Plan: Status post incision and drainage of abdominal wall abscess. Wound is clean without any necrotic tissue. Drainage is minimal and serous. No evidence of ongoing uncontrolled infection. White blood count is normal. Will have the nurse attempted teach the family had to do a once daily packing and dressing change. If the able to do that then the patient can go back to his [facility] care unit with home health to come in as scheduled. Otherwise the patient would have to go to senior living facility for daily dressing change. Patient should follow-up see Dr. Sanches the office in 1 to 2 weeks. Subjective Date/time seen: 08/27/24 10:44 Interval history: Doing well. No complaints. Waiting for his to come to the hospital this morning. Tolerating regular diet. No fever. White blood count is normal. Exam GI: Other: The lower abdominal wall midline abscess cavity is well drained. Minimal drain age. No redness or induration. Objective Data Vital Signs Vital Signs: Vital Signs - 24 hr 08/26/24 16:05 08/27/24 04:47 Temperature 36.8 C 36.7 C Pulse Rate 70 71 Respiratory Rate 16 16 Blood Pressure 115/63 140/86 Pulse Oximetry 99 100 Intake/Output Intake/Output: Intake & Output 08/24/24 08/25/24 08/26/24 08/27/24 23:59 23:59 23:59 23:59 Intake Total 418 627 7602 340 Output Total 325 Balance 034 586 0000 340 Meds/Results Medications: Active Medications Generic Name Dose Route Start Last Admin Trade Name Freq PRN Reason Stop Dose Admin Acetaminophen 500 mg 08/24/24 16:02 Acetaminophen 500 Mg Tablet PO Q6H PRN Pain Rated 1-3 Hydrocodone Bitart/Acetaminophen 1 tab 08/24/24 16:02 08/25/24 21:23 Hydrocodone/Acetaminophen (*Crx) 5-325 Mg Tablet PO 1 tab Q4H PRN Administration Pain Rated 4-6 Bumetanide 1 mg 08/25/24 09:00 08/27/24 08:28 Bumetanide 1 Mg Tablet PO 1 mg DAILY NINFA Administration Buspirone HCl 10 mg 08/24/24 16:02 Buspirone Hcl 10 Mg Tablet PO TID PRN anxiety Ferrous Sulfate 325 mg 08/24/24 17:00 08/27/24 08:28 Ferrous Sulfate [address] PO 325 mg BID NINFA Administration Piperacillin/Tazobactam/Dextrose 3.375 gm in 50 mls @ 100 mls/hr 08/24/24 17:00 08/27/24 06:41 Zosyn 3.375 Gm/Ns 50 Ml IVPB Infused Q6HR NINFA Infusion Memantine 10 mg 08/24/24 17:00 08/27/24 08:28 Memantine 10 Mg Tablet PO 10 mg BID NINFA Administration Morphine Sulfate 2 mg 08/24/24 16:02 Morphine Sulfate (*Crx) 2 Mg/Ml Inj IV PUSH Q2H PRN Breakthrough Pain Rated 4-6 or NPO Naloxone HCl 0.1 mg 08/24/24 16:02 Naloxone Hcl 0.4 Mg/Ml Vial IV PUSH Q2M PRN Opiate Reversal Ondansetron HCl 4 mg 08/24/24 16:02 Ondansetron Inj 4 Mg/2 Ml Vial IV PUSH Q4H PRN Nausea And Vomiting Pantoprazole Sodium 40 mg 08/25/24 09:00 08/27/24 08:28 Pantoprazole 40 Mg Tablet PO 40 mg QAM NINFA Administration Sertraline HCl 150 mg 08/25/24 09:00 08/27/24 08:28 Sertraline Hcl 50 Mg Tablet PO 150 mg DAILY NINFA Administration Labs Labs: Laboratory Results - last 24 hr 08/26/24 08/27/24 13:02 05:00 WBC 5.2 RBC 3.76 L Hgb 10.8 L Hct 34.8 L MCV 92.6 MCH 28.7 MCHC 31.0 L RDW 15.5 H Plt Count 284 MPV 9.6 Sodium 140 Potassium 3.9 3.6 Chloride 105 Carbon Dioxide 32 H Anion Gap 3 L BUN 13 Creatinine 1.03 Estim Creat Clear Calc 50 Estimated GFR > 60 Glucose 103 Calcium 8.3 L Magnesium 2.0 Total Bilirubin 0.3 AST 21 ALT 16 Alkaline Phosphatase 87 Total Protein 6.0 L Albumin 3.1 L
--- NOTE | 2024-08-27 10:58 | PM.DS ---
DS: Admitting Diagnosis Discharge Date August 27, 2024 Admitting Diagnosis Lower abdominal wall abscess DS: Discharge Diagnosis Discharge Diagnosis (1) Abdominal wall abscess: Code(s): L02.211 - Cutaneous abscess of abdominal wall Status: Acute Assessment and Plan: Lower abdominal abscess has been drained surgically. Wound is being packed. He will be discharged with local wound care. DS: Summary Hospital Course Reason for hospitalization: Lower abdominal wall abscess. Hospital Course: Patient is a 79-year-old gentleman who resides in a memory care unit. He had a episode of diverticulitis with abscess which was drained percutaneously with IR drain. This was successful and the drain was eventually removed. He recently began to have lower abdominal pain and on evaluation was found to have a lower abdominal wall abscess in the soft tissues. No evidence of pelvic or intra-abdominal abscess was noted. He was admitted to the hospital and started on IV antibiotics to include Zosyn. He was then taken by Dr. Sanches to the operating room where he underwent incision and drainage of the lower abdominal wall abscess. Patient white blood count is normal. He has been on Zosyn. Cultures from the abscess cavity shows Pseudomonas and sensitivities are pending. The patient has done well with just drainage of the abscess and IV antibiotics. The wound has no necrotic tissue in it and the cellulitis is resolved. Family has indicated they are willing to try to pack the on the days that home health nursing does not come to the memory care unit. Family will be taught how to do the dressing change today and if successful the patient can be discharged back to the memory care unit we home health nursing care for the wound. If family is unable to do is the dressing change then the patient will need to be set up in a correction facility for daily dressing change until that is no longer needed. Follow-up Dr. Jasmin cutler in the office in 1 to 2 weeks. We will discharge the patient with Levaquin for oral antibiotics for now. If the antibiotics need to be changed based upon the final sensitivities on the Pseudomonas then that can be done as an outpatient. Status at Discharge Functional status at discharge: independent ambulation Overall status at discharge: patient is back to baseline Time Spent with Patient Time attestation: Total time spent providing and/or coordinating discharge services: Time spent: Less than 30 minutes Exam GI: Other: Lower abdominal abscess cavity as well drained. There is no necrotic tissue at the base or the edges. Redness is resolved. Minimal induration is noted. The drainage is mostly serous and nonpurulent. DS: Data Data Completed and Pending Labs on day of discharge: Labs from last 24 hours 08/27/24 08/26/24 05:00 13:02 WBC 5.2 RBC 3.76 L Hgb 10.8 L Hct 34.8 L MCV 92.6 MCH 28.7 MCHC 31.0 L RDW 15.5 H Plt Count 284 MPV 9.6 Sodium 140 Potassium 3.6 3.9 Chloride 105 Carbon Dioxide 32 H Anion Gap 3 L BUN 13 Creatinine 1.03 Estim Creat Clear Calc 50 Estimated GFR > 60 Glucose 103 Calcium 8.3 L Magnesium 2.0 Total Bilirubin 0.3 AST 21 ALT 16 Alkaline Phosphatase 87 Total Protein 6.0 L Albumin 3.1 L Preliminary micro results at discharge 08/24/24 14:36 Anaerobic Culture - Preliminary Abscess Aerobic Culture - Preliminary Pseudomonas aeruginosa Discharge Plan Discharge Attending physician on discharge: Segnudo Sanches Consulting providers: Shantal Camargo Discharging Clinician: Eligio Corona Anticipated Discharge Date/Time: 08/27/24 10:55 Patient Disposition: Home Health Service Discharge Instructions: Per Care Coordination, patient to discharge with [facility] ([phone]) for wound care. Agency will call to arrange initial visit week of 08/27/24. Patient may be discharged from the hospital today if wound care situation is addressed. If family is able to do a daily dressing change and wound packing at the memory care unit that he can be discharged to that facility with home health nursing. If family is unable to do a daily dressing change on the days that home health nurses do not come then the patient will need to go to correction facility just for dressing changes until Dr. Sanches feels that the patient no longer needs a daily dressing change. Patient is able to shower after the packing has been removed and then the wound can be repacked after the shower. Daily packing of the lower abdominal wound with half-inch iodoform gauze and cover with dry gauze or ABD pad and paper tape or Medipore tape. The patient is discharged to memory care unit and not to correction facility then make sure Q-tips, half-inch iodoform gauze, 4x4 gauze, ABD pads, and tape is sent with the patient at discharge. Patient Instructions: Antibiotic Form Patient Language: Frisian Stand Alone Forms: General Discharge Information Follow-up/Referrals: Segundo Sanches, [Physician] - (Follow-up with Dr. Sanches in the office in 1 to 2 weeks. Patient to call office for an appointment) Discharge Medications: New levofloxacin 500 mg tablet 500 mg PO DAILY Qty: 14 0RF No Action omeprazole 40 mg capsule,delayed release(DR/EC) 40 mg PO DAILY Qty: 90 1RF memantine 10 mg tablet 10 mg PO BID Qty: 180 1RF ferrous sulfate 325 mg (65 mg iron) tablet,delayed release (DR/EC) 325 mg PO BID Qty: 180 1RF Eliquis 5 mg tablet 5 mg PO BID Qty: 180 1RF bumetanide 1 mg tablet 1 mg PO DAILY Qty: 30 4RF buspirone 10 mg tablet 10 mg PO TID PRN (Reason: anxiety) Qty: 45 0RF sertraline 100 mg tablet 150 mg PO DAILY Qty: 135 1RF Patient Comments: QA Date of admission: 08/25/24 11:43 Primary Care Provider: Cristi Mullen Admitting Provider: Segundo Sanches Attending physician on admission: Segundo Sanches Condition: Improved
--- NOTE | 2024-08-27 12:31 | PC.NURSE ---
Business Support Assistant educated Adriana (daughter) on abdominal dressing changes, Adriana verbalized understanding after demostration, no questions, Adriana Reports she is confident in being able to do dressing changes daily
== END 2024-08-27 13:26 | disposition home health service (06) | DRG 988 ==
LOC: ANHSURGERY 12:07 → ANH2MED 13:54
PROVIDERS: General Practice; Internal Medicine; Admitting Provider Surgery; PCP Nurse Practitioner; Visit Provider Surgery
PROC: 0K9L0ZZ Drainage of Left Abdomen Muscle, Open Approach (ICD-10-PCS; principal; 2024-08-24 13:00)
DX: K57.20 Diverticulitis of large intestine with perforation and abscess without bleeding (principal); I27.82 Chronic pulmonary embolism; I50.32 Chronic diastolic (congestive) heart failure; L02.211 Cutaneous abscess of abdominal wall; B96.5 Pseudomonas (aeruginosa) (mallei) (pseudomallei) as the cause of diseases classified elsewhere; I11.0 Hypertensive heart disease with heart failure; N40.0 Benign prostatic hyperplasia without lower urinary tract symptoms; K21.9 Gastro-esophageal reflux disease without esophagitis; D50.9 Iron deficiency anemia, unspecified; F03.90 Unspecified dementia, unspecified severity, without behavioral disturbance, psychotic disturbance, mood disturbance, and anxiety; M19.90 Unspecified osteoarthritis, unspecified site; E87.6 Hypokalemia; F41.9 Anxiety disorder, unspecified; F32.A Depression, unspecified; Z85.820 Personal history of malignant melanoma of skin; Z98.42 Cataract extraction status, left eye; Z98.41 Cataract extraction status, right eye; Z87.891 Personal history of nicotine dependence
CPT/HCPCS: 36415; 80048; 80053; 83735; 84132; 85027; 87070; 87075; 87186; 87205; A9270; J0690; J2003; J2543; J2704; J3010; J3475; J3480; J7040; J7120

== ENCOUNTER 2024-10-02 15:27 | Outpatient (CLI) | payer MEDICARE, OTHER, SELFPAY ==
--- NOTE | ~2024-10-02 | CT_ITS ---
CT of the Abdomen and Pelvis: Indication: Diverticulitis Technique: 2.5 mm axial scans were obtained through the abdomen and pelvis following intravenous adm inistration of 100 cc of Omnipaque 350. Dose reduction technique was used on this scan by utilizing a utomated exposure control and iterative reconstruction technique. The dose-length product (DLP) was 4 40.77 mGy-cm. COMPARISON: 08/21/2024 Findings: Scans through the lung bases are unremarkable. The liver, spleen, pancreas, gallbladder, adrenals and kidneys are within normal limits. There are at herosclerotic calcifications of the aorta. No lymphadenopathy. Extraluminal abscess or contained perforation is again present just deep to the anterior abdominal wa ll at the pelvis, with collection measuring up to approximately 9 cm in transverse dimension, 1.8 cm in AP dimension, and 2.4 cm in craniocaudal extent. Images through the pelvis were performed. Suspected tiny urinary bladder stones. No pelvic mass evide nt. No ascites. Impression: Extraluminal abscess or contained perforation just deep to the anterior abdominal wall inferiorly, as detailed above, similar to prior exam. The subcutaneous portion of the collection is resolved marked ly improved, however the intraperitoneal portion persists. Reviewed, dictated and finalized at location . Impression: Extraluminal abscess or contained perforation just deep to the anterior abdomin al wall inferiorly, as detailed above, similar to prior exam. The subcutaneous portion of the collection is resolved markedly improved, however the intraperit mondragon portion persists.
[2024-10-02 15:57] LABS: Estimated Glomerular Filt Rate > 60
--- OUTSIDE RECORDS SUMMARY | 2024-10-02 17:23 | XMS_ITS | Encounter Summary ---
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
--- OUTSIDE RECORDS SUMMARY | 2024-10-02 17:23 | XMS_ITS | Encounter Summary ---
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
--- OUTSIDE RECORDS SUMMARY | 2024-10-02 17:23 | XMS_ITS | Encounter Summary ---
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
--- OUTSIDE RECORDS SUMMARY | 2024-10-02 17:24 | XMS_ITS | Referral Summary ---
Author Organization [facility] Address [address] [facility] [place] [address] Phone Care Team Providers Care Proprietary Trader Name Role Phone Gilbert Anderson MD Unavailable [phone] Mandeep Christine DO Primary Care Provider [phone] Encounters Date Type Department Care Team Description 09/18/2024 Telephone [facility] Geriatric Medicine [facility] [facility] 12th [place] [address] [place] [address] Isabella Reddy MD 09/18/2024 Orders Only [facility] Geriatric Medicine [facility] 12th [place] [address] [place] [address] Isabella Reddy MD 09/18/2024 Results Follow-Up [facility] Medicine [address] [place] [address] [place] [address] Isabella Reddy MD 09/15/2024 Telephone [facility] Geriatric Medicine [address] 12th [place] [address] [place] [address] Isabella Reddy MD [facility] 09/14/2024 8:55 PM CDT Lab [facility] [address] [place] [id number] Screening for hyperlipidemia; Screening for diabetes mellitus; Vitamin D deficiency; Screening for viral disease; Weakness; Iron deficiency anemia secondary to inadequate dietary iron intake; Screening for thyroid disorder 09/14/2024 Telephone [facility] Geriatric Medicine [address] Medical Office Building 2 [place] [address] Tianna Prakash RN 09/14/2024 4:00 PM CDT Office Visit [facility] Geriatric Medicine [address] 12th [place] [address] [place] [address] Isabella Reddy MD Iron deficiency anemia secondary to inadequate dietary iron intake (Primary Dx); Vitamin D deficiency; Screening for diabetes mellitus; Screening for hyperlipidemia; Screening for thyroid disorder; Weakness; Screening for viral disease; Localized swelling, mass, or lump of lower extremity, bilateral; Bilateral leg edema; Abscess of abdominal cavity (HCC) 08/27/2024 Orders Only [facility] ED Scanning, Provider 07/25/2024 Documentation [facility] Diagnostic [place] [id number] [facility] First Floor [address] [place] [address] Halina Fontenot, AUDIO/VISUAL OPERATOR 07/11/2024 Orders Only [address] Floor [address] [place] [address] Richard Bonner RMA from Last 3 Months Allergies Active Allergy Reactions Criticality Noted Date Comments Sulfa (Sulfonamide Antibiotics) Rash Medium Medications omeprazole (PriLOSEC) 40 mg capsule Take 1 capsule (40 mg total) by mouth daily Active sertraline (ZOLOFT) 100 mg tablet 1.5 tablets (150 mg total) 4 Active memantine (NAMENDA) 10 mg tablet 4 Active levoFLOXacin (LEVAQUIN) 500 mg tablet Take 1 tablet (500 mg total) by mouth daily 5 Active busPIRone (BUSPAR) 10 mg tablet Take 1 tablet (10 mg total) by mouth 3 (three) times a day as needed 5 Active bumetanide (BUMEX) 1 mg tablet Take 1 tablet (1 mg total) by mouth daily 5 Active Eliquis 5 mg tablet Take 1 tablet (5 mg total) by mouth 2 (two) times a day 4 Active ferrous sulfate 325 mg (65 mg of elemental iron) tablet 1 tablet (65 mg of elemental iron total) 4 Active UNABLE TO FIND Med Name: AMOXICILLIN FOR UTI Active cholecalciferol (VITAMIN D-3) 25 mcg (1,000 unit) tablet Take 1 tablet (1,000 Units total) by mouth daily 90 tablet 1 5 03/17/20 25 Active Active Problems Problem Noted Date Diagnosed Date Grade I diastolic dysfunction 09/18/2024 Severe pulmonary hypertension 09/18/2024 Mild aortic valve sclerosis 09/18/2024 Physical deconditioning 05/25/2024 Balance problem 05/25/2024 Weakness 05/25/2024 Restlessness and agitation 04/03/2024 Alzheimer's disease 06/15/2023 Overview (05/25/2024): -Onset: 2019 -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, moderate WMD -Biomarkers: CSF ADEVL collected on 02/25/23 consistent with AD - [id number]/abeta42: 0.060 (H), Ab42 573 (L), t-tau 350 (H), p-tau 34.6 (H) -Diagnosis: AD -Namenda/memantine 10 mg BID, sertraline/Zoloft 100 mg, did not want to pursue anti amyloid therapy -discontinued donepezil/Aricept d/t GI upset, diverticultis, wt loss Assessment & Plan (05/25/2024 10:54 AM HANDBAG PARTS CUTTER): Stop donepezil/Aricept due to wt loss, diverticulitis, low appetite Continue Namenda/memantine 10 mg BID Physical therapy and occupational therapy at home Referred to [facility] for primary care ( request) Assessment & Plan (04/03/2024 9:07 AM CDT): -Onset: 2019 -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, moderate WMD -Biomarkers: CSF ADEVL collected on 02/25/23 consistent with AD - jate429/abeta42: 0.060 (H), Ab42 573 (L), t-tau 350 (H), p-tau 34.6 (H) -Diagnosis: AD -Relevant medications: donepezil/Aricept 5 mg (GI upset with higher dose), Namenda/memantine 10 mg BID, sertraline/Zoloft 100 mg, did not want to pursue anti amyloid therapy PLAN: Hide car keys Consider increasing sertraline/Zoloft moving forward Increase physical activity, two community centers [facility] 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, counseling for Slicing Machine Operator Shante Pepe Please send referral to 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 [place] benefits Iron deficiency anemia due to chronic blood loss 08/02/2019 Iron deficiency anemia secon genna to inadequate dietary iron intake 04/19/2018 Myocardial ischemia 05/01/2015 Hiatal hernia 04/26/2015 Immunizations Immunization Administration Dates Next Due Influenza, Quadrivalent, Hig h Dose, Preservative Free, Intrr 04/06/2020 Influenza, Trivalent, High D ose, Split, Preservative Free, Intramuscular 04/04/2019,03/27/2018,03/28/2017,04/14,04/07/2015 Influenza, Unspecified 03/28/2018,2013,03/30/2013,04/07,03/14/2011 Pneumococcal Conjugate PCV 13 04/07/2015 Pneumococcal Polysaccharide [...] on file Legal Sex Male 9:32 PM HANDBAG PARTS CUTTER Gender Identity Male 03/31/2023 8:02 AM CDT Sexual Orientation Straight 03/31/2023 8: 02 AM CDT Last Filed Vital Signs Vital Sign Reading Time Taken Comments Blood Pressure 145/79 09/14/2024 3:39 PM CDT Pulse 69 09/14/2024 3:39 PM CDT Temperature 36.8 C (98.3 F) 09/14/2024 3:39 PM CDT Respiratory Rate 16 08/04/2019 12:00 PM HANDBAG PARTS CUTTER Oxygen Saturation 99% 09/14/2024 3:39 PM CDT Inhaled Oxygen Concentration - - Weight 77.6 kg (171 lb) 09/14/2024 3:39 PM CDT Height 175.3 cm (5' 9 ) 09/14/2024 3:39 PM CDT Body Mass Index 25.25 09/14/2024 3:39 PM CDT Plan of Treatment Not on file Procedures Procedure Name Priority Date/Time Associated Diagnosis Comments EGFR Routine 09/14/2024 5:50 PM CDT Weakness T4, FREE Routine 09/14/2024 5:50 PM CDT Screening for thyroid disorder DIFFERENTIAL AUTO Routine 09/14/2024 5:5 0 PM CDT Iron deficiency anemia secondary to inadequate dietary iron intake Weakness THYROID FUNCTION CASCADE Routine 09/14/2024 5:50 PM CDT Screening for thyroid disorder CBC WITH AUTO DIFFERENTIAL Routine 09/14/2024 5:50 PM CDT Iron deficiency anemia secondary to inadequate dietary iron intake Weakness COMPREHENSIVE METABOLIC PANEL Routine 09/14/2024 5:50 PM CDT Weakness VITAMIN D 25 HYDROXY Routine 09/14/2024 5:50 PM CDT Vitamin D deficiency HEMOGLOBIN A1C Routine 09/14/2024 5:50 PM CDT Screening for diabetes mellitus LIPID PANEL Routine 09/14/2024 5:50 PM CDT Screening for hyperlipidemia HEPATITIS B SURFACE ANTIGEN Routine 09/14/2024 5:50 PM CDT Screening for viral disease HEPATITIS B SURFACE ANTIBODY (IMMUNE STATUS) Routine 09/14/2024 5:50 PM CDT Screening for viral disease HEPATITIS B CORE ANTIBODY, TOTAL Routine 09/14/2024 5:50 PM CDT Screening for viral disease SCAN - LABS 08/27/2024 from Last 3 Months Results * eGFR (09/14/2024 5:50 PM CDT) Pathologist [facility] eGFR 79 >=60 mL/min/1. 73 m2 Comment: Interpretive Data Reference Interval Normal >/= 90 mL/min/1.73m2 Mildly decreased* 60 - 89 mL/min/1.73m2 Mildly to moderately decreased 45 - 59 mL/min/1.73m2 Moderately to severely decreased 30 - 44 mL/min/1.73m2 Severely decreased 15 - 29 mL/min/1.73m2 Kidney Failure < 15 mL/min/1.73m2 *Relative to young adult level Estimated glomerular filtration rate is determined by the 2020 CKD-EPI equation recommended by the National Kidney Foundation (A Unifying Approach to GFR Estimation: Recommendations of the NKF-ASK Task Force on Reassessing the Inclusion of Race in Diagnosing Kidney Disease, JASN 2020). The CKD-EPI equation should not be used for patients with unstable renal function and has not been validated in children and those over 70. Current interpretive data was last reviewed 2021. Blood 09/14/2024 5:50 PM CDT 09/14/2024 6:15 PM CDT us Isabella Reddy MD LAB BLOOD ORDERABLES Final Result [facility] Department [place] [address] * Differential, auto (09/14/2024 5:50 PM CDT) Pathologist [facility] Neutrophil abs 3.87 1.50 - 6.50 K/cumm Imm gran abs 0.01 0.00 - 0.10 K/cumm [facility] Lymphocyte abs 1.17 0.80 - 3.30 K/cumm [facility] Monocyte abs 0.68 0.20 - 0.80 K/cumm [facility] Eosinophil abs 0.11 0.00 - 0.50 K/cumm [facility] Basophil abs 0.03 0.00 - 0.10 K/cumm [facility] Neutrophil pct 65.9 % [facility] Comment: Interpretive Data Percent cell count reference ranges are not reported, since discordance with absolute values may lead to misinterpretation of CBC data. Current Interpretive Data was last revised on 2017. Imm gran pct 0.2 % [facility] Comment: Interpretive Data Percent cell count reference ranges are not reported, since discordance with absolute values may lead to misinterpretation of CBC data. Current Interpretive Data was last revised on 2017. Lymphocyte pct 19.9 % [facility] Comment: Interpretive Data Percent cell count reference ranges are not reported, since discordance with absolute values may lead to misinterpretation of CBC data. Current Interpretive Data was last revised on 2017. Monocyte pct 11.6 % [facility] Comment: Interpretive Data Percent cell count reference ranges are not reported, since discordance with absolute values may lead to misinterpretation of CBC data. Current Interpretive Data was last revised on 2017. Eosinophil pct 1.9 % [facility] Comment: Interpretive Data Percent cell count reference ranges are not reported, since discordance with absolute values may lead to misinterpretation of CBC data. Current Interpretive Data was last revised on 2017. Basophil pct 0.5 % [facility] Comment: Interpretive Data Percent cell count reference ranges are not reported, since discordance with absolute values may lead to misinterpretation of CBC data. Current Interpretive Data was last revised on 2017. Blood 09/14/2024 5:50 PM CDT 09/14/2024 6:10 PM CDT us Isabella Reddy MD LAB BLOOD ORDERABLES Final Result [facility] Department [place] [address] * (ABNORMAL) Thyroid Function [place] (09/14/2024 5:50 PM CDT) TSH 4.68(H) 0.30 - 4.20 mcIUnit/mL Blood 09/14/2024 5:50 PM CDT 09/14/2024 6:10 PM CDT Isabella Reddy MD LAB BLOOD ORDERABLES Final Result Performing Organization Address [facility] Co de Phone Number [facility] Department [place] [address] * (ABNORMAL) CBC with auto differential (09/14/2024 5:50 PM CDT) [facility] WBC 5.87 3.80 - 9.90 K/cumm Hgb 11.1(L) 13.0 - 17.5 g/dL [facility] Hct 35.0(L) 38.9 - 50.3 % [facility] Plt 297 150 - 400 K/cumm [facility] MPV 9.7 9.1 - 12.3 fL [facility] RBC 3.88(L) 4.30 - 5.80 M/cumm [facility] MCV 90.2 81.3 - 96.4 fL [facility] MCH 28.6 27.1 - 33.3 pg [facility] MCHC 31.7(L) 32.3 - 35.7 g/dL [facility] RDW CV 15.9(H) 11.1 - 14.9 % [facility] RDW SD 52.8(H) 35.7 - 48.1 fL [facility] NRBC abs 0.00 0.00 - 0.01 K/cumm [facility] Blood 09/14/2024 5:50 PM CDT 09/14/2024 6:10 PM CDT Isabella Reddy MD LAB BLOOD ORDERABLES Final Result Performing Organization Address City/[facility]/ZIP Co de Phone Number [facility] [place] [address] * (ABNORMAL) Hepatitis B core antibody, total Blood (09/14/2024 5:50 PM CDT) [facility] Hep B core IgG/IgM Reactive( A) Nonreactive Blood 09/14/2024 5:50 PM CDT 09/14/2024 6:10 PM CDT Isabella Reddy MD LAB MICROBIOLOGY - G ENERAL ORDERABLES Final Result Performing Organization Address City/[facility]/ZIP Co de Phone Number [facility] [place] [address] * (ABNORMAL) Vitamin D 25 hydroxy (09/14/2024 5:50 PM CDT) [facility] Vitamin D 25-OH 23(L) 30 - 80 ng/mL Blood 09/14/2024 5:50 PM CDT 09/14/2024 6:10 PM CDT Isabella Reddy MD LAB BLOOD ORDERABLES Final Result Performing Organization Address [facility] Co de Phone Number [facility] [place] [address] * Hepatitis B surface antibody (immune status) Blood (09/14/2024 5:50 PM CDT) [facility] HBsAb (immune status) Reactive Comment:This result is consi stent with immunity to Hepatitis B Virus when used in the setting of routine screening. Current interpretive data was last revised on 22 HBsAb (immune status) index 4,422.0 mIUnits/m L [facility] Blood 09/14/2024 5:50 PM CDT 09/14/2024 6:10 PM CDT Isabella Reddy MD LAB MICROBIOLOGY - G ENERAL ORDERABLES Final Result Performing Organization Address City/[facility]/ZIP Co de Phone Number [facility] [place] [address] * Hepatitis B Surface Antigen Blood (09/14/2024 5:50 PM CDT) [facility] HepBsAg Nonreactive Nonreactive Blood 09/14/2024 5:50 PM CDT 09/14/2024 6:10 PM CDT Result [facility] Isabella Reddy MD LAB MICROBIOLOGY - G ENERAL ORDERABLES Final Result Performing Organization Address [facility] Co de Phone Number [facility] Department [place] [address] * T4, free (09/14/2024 5:50 PM CDT) [facility] Free T4 1.08 0.90 - 1.70 ng/dL Blood 09/14/2024 5:50 PM CDT 09/14/2024 6:15 PM CDT Narrative [facility] - 09/14/2024 7:25 PM CDT This test was reflexed from a TSH result. Result [facility] Isabella Reddy MD LAB BLOOD ORDERABLES Final Result Performing Organization Address [facility] de Phone Number [facility] [place] [address] * (ABNORMAL) Hemoglobin A1c (09/14/2024 5:50 PM CDT) [facility] Hgb A1C 5.8(H) 4.0 - 5.6 % Estimated Average Glucose 120 mg/dL [facility] Comment: The ADA recommends reporting an estimated Average Glucose (eAG) with all Hemoglobin A1c results using the equation derived from a study of 507 normal and diabetic adults. Minority populations were underrepresented and children were not included. (Diabetes Care 2020; 43(S1): S66-S76). The eAG is not equivalent to a fasting glucose. Blood 09/14/2024 5:50 PM CDT 09/14/2024 6:10 PM CDT Result [facility] Isabella Reddy MD LAB BLOOD ORDERABLES Final Result [facility] Department [place] [address] * Lipid panel (09/14/2024 5:50 PM CDT) Cholesterol 166 30 - 199 mg/dL Comment: Interpretive Data Ages < or = 19 years Acceptable: <170 mg/dL Borderline high: 170-199 mg/dL High: >or= 200 mg/dL Ages > or = 20 years Desirable: <200 mg/dL Borderline high: 200-239 mg/dL High: >or= 240 mg/dL Literature References: 1. Expert Panel on Integrated Guidelines for Cardiovascular Health and Risk Reduction in Children and Adolescents. Pediatrics 2011;128:S213 2. NCEP Expert Panel. Circulation 2004;110:227 Current Interpretive Data was last revised on 2018. Triglycerides 92 <=149 mg/dL [facility] Comment: Interpretive Data Ages < or = 9 years Acceptable: <75 mg/dL Borderline high: 75-99 mg/dL High: >or= 100 mg/dL Ages 10 to 20 years Acceptable: <90 mg/dL Borderline high: 90-129 mg/dL High: >or= 130 mg/dL Ages > or = 20 years Desirable: <150 mg/dL Borderline high: 150-199 mg/dL High: 200-499 mg/dL Very high: >or= 499 mg/dL Literature References: 1. Expert Panel on Integrated Guidelines for Cardiovascular Health and Risk Reduction in Children and Adolescents. Pediatrics 2011;128:S213 2. NCEP Expert Panel. Circulation 2004;110:227 Current Interpretive Data was last revised on 2018. HDL 62 >=40 mg/dL [facility] Comment: Interpretive Data Ages < or = 19 years Acceptable: >45 mg/dL Borderline low: 40-45 mg/dL Low: <40 mg/dL Ages > or = 20 years Desirable: >or= 60 mg/dL Low: <40 mg/dL Literature References: 1. Expert Panel on Integrated Guidelines for Cardiovascular Health and Risk Reduction in Children and Adolescents. Pediatrics 2011;128:S213 2. NCEP Expert Panel. Circulation 2004;110:227 Current Interpretive Data was last revised on 2018. LDL, calculated 87 <=129 mg/dL [facility] Comment: Interpretive Data Ages < or = 19 years Acceptable: <110 mg/dL Borderline high: 110-129 mg/dL High: >or= 130 mg/dL Ages > or = 20 years Optimal: <100 mg/dL Near optimal: 100-129 mg/dL Borderline high: 130-159 mg/dL High: >160 mg/dL Calculated using the Lamonte LDL-C estimating equation. This equation was implemented on 2024. Prior to this date LDL-C was estimated using the Friedewald equation. Literature References: 1. Expert Panel on Integrated Guidelines for Cardiovascular Health and Risk Reduction in Children and Adolescents. Pediatrics 2011;128:S213 2. NCEP Expert Panel. Circulation 2004;110:227 3. Lamonte Starkey et al. ALLAN Cardiol. 2019October 12;5(5):540-548. doi: 10.1001/jamacardio.2020.0013 Current Interpretive Data was last revised on 2024. Non-HDL Cholesterol 104 mg/dL [facility] Comment: Interpretive Data Ages < or = 19 years Acceptable: <120 mg/dL Borderline high: 120-144 mg/dL High: >145 mg/dL Ages > or = 20 years When triglycerides are >200 mg/dL, Non-HDL cholesterol is a secondary target of therapy with treatment goals that are 30 mg/dL greater than the LDL cholesterol target. Literature References: 1. Expert Panel on Integrated Guidelines for Cardiovascular Health and Risk Reduction in Children and Adolescents. Pediatrics 2011;128:S213 2. NCEP Expert Panel. Circulation 2004;110:227 Current Interpretive Data was last revised on 2018. Chol/HDL ratio 3 [facility] Blood 09/14/2024 5:50 PM CDT 09/14/2024 6:10 PM CDT us Isabella Reddy MD LAB BLOOD ORDERABLES Final Result [facility] Department [place] [address] * (ABNORMAL) Comprehensive metabolic panel (09/14/2024 5:50 PM CDT) Sodium 143 135 - 145 mmol/L Potassium, pl 3.8 3.3 - 4.9 mmol/L [facility] Chloride 106 97 - 110 mmol/L [facility] CO2 33(H) 22 - 32 mmol/L [facility] Anion gap 4 2 - 15 mmol/L [facility] BUN 17 6 - 25 mg/dL [facility] Creatinine 0.96 0.80 - 1.30 mg/dL [facility] Glucose 110 70 - 199 mg/dL [facility] Comment: Interpretive Data Fasting glucose >/= 126 mg/dl is diagnostic for diabetes. Fasting is defined as no caloric intake for at least 8 hours. Fasting glucose between 100 mg/dl to 125 mg/dl is diagnostic of prediabetes. In a patient with classic symptoms of hyperglycemia or hyperglycemic crisis, a random glucose >/= 200 mg/dl is diagnostic for diabetes. In the absence of unequivocal hyperglycemia, results should be confirmed by repeat testing. The classification and Diagnosis of Diabetes Diabetes Care 2021; 46: S19-S40. Current interpretive data was last revised 2022. Calcium 8.9 8.5 - 10.3 mg/dL [facility] Bilirubin, total 0.3 0.1 - 1.2 mg/dL [facility] Protein, pl 7.0 6.5 - 8.5 g/dL [facility] Albumin 3.9 3.5 - 5.0 g/dL [facility] Alk phos 99 40 - 130 Units/L [facility] ALT 19 7 - 55 Units/L [facility] AST 25 10 - 50 Units/L [facility] Blood 09/14/2024 5:50 PM CDT 09/14/2024 6:10 PM CDT Isabella Reddy MD LAB BLOOD ORDERABLES Final Result [facility] Department [place] [address] * SCAN - LABS (08/27/2024) us Provider Scanning Final Result from Last 3 Months Insurance MEDICARE [employer] Care Teams Proprietary Trader Relationship Specialty Start Date End Date Mandeep Christine DO [address] [place] [address] PCP - General Internal Medicine 09/22/24 Gilbert Anderson MD Medical Oncologist/Pharmacy Salesperson Hematology and Oncology 04/19/18
--- OUTSIDE RECORDS SUMMARY | 2024-10-02 17:24 | XMS_ITS | Encounter Summary ---
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
--- OUTSIDE RECORDS SUMMARY | 2024-10-02 17:24 | XMS_ITS | Encounter Summary ---
Author Organization [facility] Address [address] [place] [address] Phone Care Team Providers Care Pairer Substandard Name Role Phone Gilbert Anderson MD Unavailable Mandeep Christine DO Primary Care Provider [phone] Encounter Details Date Type Department Care Team (Latest Contact Info) Description 08/27/2024 Orders Only [facility] ED Scanning, Provider Social History Tobacco Use Types Packs/Day Years Used Date Smoking Tobacco: Former Cigarettes Q uit: 1979 Smokeless Tobacco: Never Alcohol Use Standard Drinks/Week Comments Yes 1 (1 standard drink = 0.6 oz pur e alcohol) Sex and Gender Information Value Date Recorded Sex Assigned at Not on file 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 Gender Identity Male 03/31/2023 8:02 AM CDT Sexual Orientation Straight 03/31/2023 8: 02 AM CDT documented as of this encounter Plan of Treatment Not on file documented as of this encounter Procedures Procedure Name Priority Date/Time Associated Diagnosis Comments SCAN - LABS 08/27/2024 documented in this encounter Results * SCAN - LABS (08/27/2024) us Provider Scanning Final Result documented in this encounter Visit Diagnoses Not on filedocumented in this encounter Care Teams Pairer Substandard Relationship Specialty Start Date End Date Mandeep Christine DO [address] [place] [address] PCP - General Internal Medicine 09/22/24 Gilbert Anderson MD Medical Oncologist/Harmonic Analyst Hematology and Oncology 04/19/18 documented as of this encounter
--- OUTSIDE RECORDS SUMMARY | 2024-10-02 17:24 | XMS_ITS | Encounter Summary ---
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
--- OUTSIDE RECORDS SUMMARY | 2024-10-02 17:24 | XMS_ITS | Encounter Summary ---
Author Organization [facility] Address [address] [place] [address] Phone Care Team Providers Care Defect Repairer Glassware Name Role Phone Gilbert Anderson MD Unavailable [phone] Mandeep Christine DO Primary Care Provider [phone] Encounter Details Date Type Department Care Team (Late st Contact Info) Description 09/18/2024 Results Follow-Up [facility] [address] [facility] 12th [place] [address] [place] [address] Isabella Reddy MD [address] [place] [address] Social History Tobacco Use Types Packs/Day Years Used Date Smoking Tobacco: Former Cigarettes Q uit: 1979 Smokeless Tobacco: Never Alcohol Use Standard Drinks/Week Comments Yes 1 (1 standard drink = 0.6 oz pur e alcohol) Sex and Gender Information Value Date Recorded Sex Assigned at Not on file 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
--- OUTSIDE RECORDS SUMMARY | 2024-10-02 17:24 | XMS_ITS | Encounter Summary ---
Author Organization [facility] Address [address] 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
--- OUTSIDE RECORDS SUMMARY | 2024-10-02 17:24 | XMS_ITS | Encounter Summary ---
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 Gender Identity Male 03/31/2023 8:02 AM CDT Sexual Orientation Straight 03/31/2023 8: 02 AM CDT documented as of this encounter Plan of Treatment Not on file documented as of this encounter Procedures Procedure Name Priority Date/Time Associated Diagnosis Comments SCAN - RADIOLOGY/IMAGING 06/01/2024 CARDIOLOGY DOCUMENT SCAN 06/01/2024 documented in this encounter Results * Cardiology Document Scan (06/01/2024) Anatomical Region Laterality Modality Other us Provider Scanning CV CARDIAC SERVICES PROCEDURES Final Result * SCAN - RADIOLOGY/IMAGING (06/01/2024) Anatomical Region Laterality Modality Other us Provider Scanning Edited Result - Final documented in this encounter Visit Diagnoses Not on filedocumented in this encounter Care Teams Trimmer Tailer Relationship Specialty Start Date End Date Brock Ulrich MD PCP - General Family Practice 12/18/22 06/22/24 Mandeep Christine DO [address] [place] [address] PCP - General Internal Medicine 09/22/24 Gilbert Anderson MD Medical Oncologist/Delinquent Tax Collector Assistant Hematology and Oncology 04/19/18 documented as of this encounter
--- OUTSIDE RECORDS SUMMARY | 2024-10-02 17:24 | XMS_ITS | Encounter Summary ---
Author Organization [facility] Address [address] [place] [address] Care Team Providers Care Marketing Writer Name Role Phone Gilbert Anderson MD Unavailable [phone] Brock Ulrich MD Primary Care Provider [phone] Mandeep Christine DO Primary Care Provider [phone] Encounter Details Date Type Department Care Team (Late st Contact Info) Description 05/26/2024 Telephone [facility] Home Care Services [address] [facility] [address] [place] [address] Erinn Bedolla RN Social History Tobacco Use Types Packs/Day Years Used Date Smoking Tobacco: Former Cigarettes Q uit: 1979 Smokeless Tobacco: Never Alcohol Use Standard Drinks/Week Comments Yes 1 (1 standard drink = 0.6 oz pur e alcohol) Sex and Gender Information Value Date Recorded Sex Assigned at Not on file 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 Gender Identity Male 03/31/2023 8:02 AM CDT Sexual Orientation Straight 03/31/2023 8: 02 AM CDT documented as of this encounter Plan of Treatment Not on file documented as of this encounter Visit Diagnoses Not on filedocumented in this encounter Care Teams Marketing Writer Relationship Specialty Start Date End Date Brock Ulrich MD PCP - General Family Practice 12/18/22 06/22/24 Mandeep Christine DO [address] [place] [address] PCP - General Internal Medicine 09/22/24 Gilbert Anderson MD Medical Oncologist/Housekeeping Aide Hematology and Oncology 04/19/18 documented as of this encounter
--- OUTSIDE RECORDS SUMMARY | 2024-10-02 17:24 | XMS_ITS | Encounter Summary ---
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
--- OUTSIDE RECORDS SUMMARY | 2024-10-02 17:24 | XMS_ITS | Clinical Summary ---
Author Organization [facility] Address [address] [place] [address] Phone Care Team Providers Care Sales Specialist Name Role Phone Gilbert Anderson MD Unavailable [phone] Mandeep Christine DO Primary Care Provider [phone] Allergies Active Allergy Reactions Criticality Noted Date [...] total) by mouth daily 90 tablet 1 03/17/20 Active Active Problems Problem Noted Date Diagnosed Date Grade I diastolic dysfunction 09/18/2024 Severe pulmonary hypertension 09/18/2024 Mild aortic valve sclerosis 09/18/2024 Physical deconditioning 05/25/2024 Balance problem 05/25/2024 Weakness 05/25/2024 Restlessness and agitation 04/03/2024 Alzheimer's disease 06/15/2023 Overview (05/25/2024): -Onset: 2019 -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, moderate WMD -Biomarkers: CSF ADEVL collected on 02/25/23 consistent with AD - [id number]/abeta42: 0.060 (H), Ab42 573 (L), t-tau 350 (H), p-tau 34.6 (H) -Diagnosis: AD -Namenda/memantine 10 mg BID, sertraline/Zoloft 100 mg, did not want to pursue anti amyloid therapy -discontinued donepezil/Aricept d/t GI upset, diverticultis, wt loss Assessment & Plan (05/25/2024 10:54 AM 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): Stop donepezil/Aricept due to wt loss, diverticulitis, low appetite Continue Namenda/memantine 10 mg BID Physical therapy and occupational therapy at home Referred to Geriatrics for primary care ( request) Assessment & Plan (04/03/2024 9:07 AM CDT): -Onset: 2019 -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, moderate WMD -Biomarkers: CSF ADEVL collected on 02/25/23 consistent with AD - kqxt385/abeta42: 0.060 (H), Ab42 573 (L), t-tau 350 (H), p-tau 34.6 (H) -Diagnosis: AD -Relevant medications: donepezil/Aricept 5 mg (GI upset with higher dose), Namenda/memantine 10 mg BID, sertraline/Zoloft 100 mg, did not want to pursue anti amyloid therapy PLAN: Eliazar dias Consider increasing sertraline/Zoloft moving forward Increase physical activity, two community centers in [place] 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, counseling for Biometrics Specialist Shante Pepe Please send referral to 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 benefits Iron deficiency anemia due to chronic blood loss 08/02/2019 Iron deficiency anemia secelana joyy to inadequate dietary iron intake 04/19/2018 Myocardial ischemia 05/01/2015 Hiatal hernia 04/26/2015 Encounters Date Type Department Care Team Description 09/18/2024 Telephone [facility] Medicine [address] [place] [address] [place] [address] [place] [address] Isabella Reddy MD 09/18/2024 Orders Only [facility] Medicine [address] [place] [address] [place] [address] [place] [address] Isabella Reddy MD 09/18/2024 Results Follow-Up [facility] Medicine [address] [place] [address] [place] [address] [place] [address] Isabella Reddy MD 09/15/[address] [place] [address] [place] [address] Isabella Reddy MD [facility] facility 09/14/2024 8:55 PM CDT Lab [facility] [address] [place] [address] Screening for hyperlipidemia; Screening for diabetes mellitus; Vitamin D deficiency; Screening for viral disease; Weakness; Iron deficiency anemia secondary to inadequate dietary iron intake; Screening for thyroid disorder 09/14/2024 4:00 PM CDT Office Visit [facility] Medicine [address] [place] [address] [place] [address] [place] [address] Isabella Reddy MD Iron deficiency anemia secondary to inadequate dietary iron intake (Primary Dx); Vitamin D deficiency; Screening for diabetes mellitus; Screening for hyperlipidemia; Screening for thyroid disorder; Weakness; Screening for viral disease; Localized swelling, mass, or lump of lower extremity, bilateral; Bilateral leg edema; Abscess of abdominal cavity (HCC) 09/14/2024 Telephone [facility] [address] [facility] [address] Medical Office [address] [place] [address] Tianna Prakash RN 08/27/2024 Orders Only [facility] Scanning, Provider 07/25/2024 Documentation [facility] [address] First Floor [address] [place] [address] Halina Fontenot, BILL 07/11/2024 Orders Only [facility] [address] [facility] [address] [place] [address] Richard Bonner RMA from Last 3 Months Immunizations Immunization Administration [...] Micrographic Technique) - (Added by TW Conv) [place] TRURL ELECTROSURG RESCJ PROSTATE BLEED COMPLETE Transurethral Resection Of Prostate (TURP) - (Added by TW Conv) [place] UNLISTED PROCEDURE VASCUL AR INJECTION Arterial Catheterization - -cardiac cath in 2007 (Added by TW Conv) [place] COLONOSCOPY FLX DX W/RALEIGH J SPEC WHEN PFRMD Colonoscopy (Fiberoptic) - (Added by TW Conv) [place] ESOPHAGOGASTRODUODENOSCOP Y TRANSORAL DIAGNOSTIC Diagnostic Esophagogastroduodenoscopy - [...] History of hypertension - (A dded by HAIM Conv) Enlarged prostate without lo wer urinary [...] on file Legal 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25 09/14/2024 3:39 PM CDT Plan of Treatment Health Maintenance Due Date Last Done Comments Depression Screening 1945 Fall Risk Assessment 1945 Abdominal Aortic Aneurysm (A AA) Screen 01/13/2008 Well Visit 65+ 01/13/2008 Zoster Vaccine (2 of 3) 05/14/2014 03/19/2014, 04/20 Covid-19 Vaccine (2023-2 5 season) 2024 04/19/2024, 04/06/2021, 09/28/2020, Additional history exists DTaP/Tdap/Td Vaccine (2 - Td or Tdap) 04/18/2029 04/18/2019 Pneumococcal vaccine 65+ Completed 019, 04/07/2015, 04/20/2013 Influenza Vaccine Completed 04/19/2024, , 04/30/2021, Additional history exists Hepatitis B Screening Completed 09/14/2024 Procedures Procedure Name Priority Date/Time Associated Diagnosis [...] Results * eGFR (09/14/2024 5:50 PM CDT) eGFR 79 >=60 mL/min/1. 73 m2 Comment: [...] 5:50 PM CDT 09/14/2024 6:15 PM CDT Isabella Reddy MD LAB BLOOD ORDERABLES Final Result [facility] [address] [facility] Department [place] [address] * Differential, auto (09/14/2024 5:50 PM CDT) Pathologist [facility] Neutrophil abs 3.87 1.50 - 6.50 K/cumm Imm gran abs 0.01 0.00 - 0.10 K/cumm [facility] Lymphocyte abs 1.17 0.80 - 3.30 K/cumm [facility] Monocyte abs 0.68 0.20 - 0.80 K/cumm [facility] Eosinophil abs 0.11 0.00 - 0.50 K/cumm [facility] Basophil abs 0.03 0.00 - 0.10 K/cumm [facility] Neutrophil pct 65.9 % [facility] Comment: Interpretive Data Percent cell count reference ranges are not reported, since discordance with absolute values may lead to misinterpretation of CBC data. Current Interpretive Data was last revised on 2017. Imm gran pct 0.2 % [facility] Comment: Interpretive Data Percent cell count reference ranges are not reported, since discordance with absolute values may lead to misinterpretation of CBC data. Current Interpretive Data was last revised on 2017. Lymphocyte pct 19.9 % [facility] Comment: Interpretive Data Percent cell count reference ranges are not reported, since discordance with absolute values may lead to misinterpretation of CBC data. Current Interpretive Data was last revised on 2017. Monocyte pct 11.6 % [facility] Comment: Interpretive Data Percent cell count reference ranges are not reported, since discordance with absolute values may lead to misinterpretation of CBC data. Current Interpretive Data was last revised on 2017. Eosinophil pct 1.9 % [facility] Comment: Interpretive Data Percent cell count reference ranges are not reported, since discordance with absolute values may lead to misinterpretation of CBC data. Current Interpretive Data was last revised on 2017. Basophil pct 0.5 % [facility] Comment: Interpretive Data Percent cell count reference ranges are not reported, since discordance with absolute values may lead to misinterpretation of CBC data. Current Interpretive Data was last revised on 2017. Blood 09/14/2024 5:50 PM CDT 09/14/2024 6:10 PM CDT us Isabella Reddy MD LAB BLOOD ORDERABLES Final Result [facility] Department [place] [address] * (ABNORMAL) Thyroid Function [place] (09/14/2024 5:50 PM CDT) TSH 4.68(H) 0.30 - 4.20 mcIUnit/mL Blood 09/14/2024 5:50 PM CDT 09/14/2024 6:10 PM CDT Isabella Reddy MD LAB BLOOD ORDERABLES Final Result Performing Organization Address [facility] Co de Phone Number [facility] [place] [address] * (ABNORMAL) CBC with auto differential (09/14/2024 5:50 PM CDT) [facility] WBC 5.87 3.80 - 9.90 K/cumm Hgb 11.1(L) 13.0 - 17.5 g/dL [facility] Hct 35.0(L) 38.9 - 50.3 % [facility] Plt 297 150 - 400 K/cumm [facility] MPV 9.7 9.1 - 12.3 fL [facility] RBC 3.88(L) 4.30 - 5.80 M/cumm [facility] MCV 90.2 81.3 - 96.4 fL [facility] MCH 28.6 27.1 - 33.3 pg [facility] MCHC 31.7(L) 32.3 - 35.7 g/dL [facility] RDW CV 15.9(H) 11.1 - 14.9 % [facility] RDW SD 52.8(H) 35.7 - 48.1 fL [facility] NRBC abs 0.00 0.00 - 0.01 K/cumm [facility] Blood 09/14/2024 5:50 PM CDT 09/14/2024 6:10 PM CDT Isabella Reddy MD LAB BLOOD ORDERABLES Final Result Performing Organization Address [facility]/ZIP Co de Phone Number [facility] [place] [address] * (ABNORMAL) Hepatitis B core antibody, total Blood (09/14/2024 5:50 PM CDT) [facility] Hep B core IgG/IgM Reactive( A) Nonreactive Blood 09/14/2024 5:50 PM CDT 09/14/2024 6:10 PM CDT Isabella Reddy MD LAB MICROBIOLOGY - G ENERAL ORDERABLES Final Result Performing Organization Address City/[facility]/ZIP Co de Phone Number [facility] [place] [address] * (ABNORMAL) Vitamin D 25 hydroxy (09/14/2024 5:50 PM CDT) [facility] Vitamin D 25-OH 23(L) 30 - 80 ng/mL Blood 09/14/2024 5:50 PM CDT 09/14/2024 6:10 PM CDT Result [facility] Isabella Reddy MD LAB BLOOD ORDERABLES Final Result Performing Organization Address [facility] de Phone Number [facility] [place] [address] * Hepatitis B surface antibody (immune status) Blood (09/14/2024 5:50 PM CDT) [facility] HBsAb (immune status) Reactive Comment:This result is consi stent with immunity to Hepatitis B Virus when used in the setting of routine screening. Current interpretive data was last revised on 22 HBsAb (immune status) index 4,422.0 mIUnits/m L [facility] Blood 09/14/2024 5:50 PM CDT 09/14/2024 6:10 PM CDT Isabella Reddy MD LAB MICROBIOLOGY - G ENERAL ORDERABLES Final Result Performing Organization Address City/[facility]/ZIP Co de Phone Number [facility] [place] [address] * Hepatitis B Surface Antigen Blood (09/14/2024 5:50 PM CDT) [facility] HepBsAg Nonreactive Nonreactive Blood 09/14/2024 5:50 PM CDT 09/14/2024 6:10 PM CDT Isabella Reddy MD LAB MICROBIOLOGY - G ENERAL ORDERABLES Final Result Performing Organization Address [facility] de Phone Number [facility] Department [place] [address] * T4, free (09/14/2024 5:50 PM CDT) [facility] Free T4 1.08 0.90 - 1.70 ng/dL Blood 09/14/2024 5:50 PM CDT 09/14/2024 6:15 PM CDT Narrative [facility] - 09/14/2024 7:25 PM CDT This test was reflexed from a TSH result. Isabella Reddy MD LAB BLOOD ORDERABLES Final Result Performing Organization Address [facility] de Phone Number [facility] Department [place] [address] * (ABNORMAL) Hemoglobin A1c (09/14/2024 5:50 PM CDT) [facility] Hgb A1C 5.8(H) 4.0 - 5.6 % Estimated Average Glucose 120 mg/dL [facility] Comment: The ADA recommends reporting an estimated [...] MD LAB BLOOD ORDERABLES Final Result [facility] Department [place] [address] * Lipid panel (09/14/2024 5:50 PM CDT) [...] on 2018. Triglycerides 92 <=149 mg/dL [facility] Comment: Interpretive Data Ages < or = [...] on 2018. HDL 62 >=40 mg/dL [facility] Comment: Interpretive Data Ages < or = [...] on 2018. LDL, calculated 87 <=129 mg/dL [facility] Comment: Interpretive Data Ages < or = [...] revised on 2024. Non-HDL Cholesterol 104 mg/dL [facility] Comment: Interpretive Data Ages < [...] last revised on 2018. Chol/HDL ratio 3 [facility] Blood 09/14/2024 5:50 PM CDT 09/14/2024 6:10 PM CDT us Isabella Reddy MD LAB BLOOD ORDERABLES Final Result [facility] Department [place] [address] * (ABNORMAL) Comprehensive metabolic panel (09/14/2024 5:50 PM CDT) Sodium 143 135 - 145 mmol/L Potassium, pl 3.8 3.3 - 4.9 mmol/L [facility] Chloride 106 97 - 110 mmol/L [facility] CO2 33(H) 22 - 32 mmol/L [facility] Anion gap 4 2 - 15 mmol/L [facility] BUN 17 6 - 25 mg/dL [facility] Creatinine 0.96 0.80 - 1.30 mg/dL [facility] Glucose 110 70 - 199 mg/dL [facility] Comment: Interpretive Data Fasting glucose >/= 126 [...] classification and Diagnosis of Diabetes Diabetes Care 202; 46: S19-S40. Current interpretive data was last revised 2022. Calcium 8.9 8.5 - 10.3 mg/dL [facility] Bilirubin, total 0.3 0.1 - 1.2 mg/dL [facility] Protein, pl 7.0 6.5 - 8.5 g/dL [facility] Albumin 3.9 3.5 - 5.0 g/dL [facility] Alk phos 99 40 - 130 Units/L [facility] ALT 19 7 - 55 Units/L [facility] AST 25 10 - 50 Units/L [facility] Blood 09/14/2024 5:50 PM CDT 09/14/2024 6:10 PM CDT us Isabella Reddy MD LAB BLOOD ORDERABLES Final Result [facility] Department [place] [address] * SCAN - LABS (08/27/2024) us Provider Scanning Final Result from Last 3 Months Insurance [employer] MEDICARE [employer] Care Teams Sales Specialist Relationship Specialty Start Date End Date Mandeep Christine DO [address] [place] [address] PCP - General Internal Medicine 09/22/24 Gilbert Anderson MD Medical Oncologist/Cvir Tech Hematology and Oncology 04/19/18
== END 2024-10-02 15:28 | disposition home or self-care (01) ==
PROVIDERS: PCP Nurse Practitioner; Visit Provider Surgery
DX: K57.32 Diverticulitis of large intestine without perforation or abscess without bleeding (principal)
CPT/HCPCS: 74177; Q9967

== ENCOUNTER 2024-10-12 13:15 | Inpatient (IN) | payer MEDICARE, OTHER, SELFPAY ==
[2024-10-12] VITALS (8 sets, daily range): BP systolic 129–142; BP diastolic 63–90; PULSE 60–78; RESP 14–16; TEMP 36.3–36.7; O2SAT 94–100; BMI 26.2
--- NOTE | ~2024-10-12 | CT_ITS ---
EXAMINATION: CT abdomen pelvis w con DATE: 10/14/2024 13:28 INDICATION: Follow-up pelvic abscess, pt pulled out drain TECHNIQUE: Computed tomography (CT) of the abdomen and pelvis was performed with 100 mL Omnipaque-350 intravenous contrast. Automated exposure control and iterative reconstruction technique were employe d. The dose-length product was 411.08 mGy-cm. COMPARISON: 10/02/2024. FINDINGS: Lower thorax: Coronary artery calcification. Mild bilateral dependent scar/atelectasis. Liver: Normal. Biliary/Gallbladder: Gallbladder is normal. No bile duct dilation. Pancreas: No mass or duct dilation. Spleen: Normal. Adrenals:No mass. Kidneys: No suspicious mass, obstructing stone, or hydronephrosis. Punctate bilateral nonobstructing calcifications. Simple left upper pole cyst. GI tract: Status post GE junction surgery, possible fundoplication. No small or large bowel dilation. Normal appendix. Mesentery/Peritoneum: Redemonstration of the gas and fluid collection in the lower anterior cavity, j ust deep to the anterior abdominal wall. Inflammatory stranding extends obliterates the fat plane wit h the adjacent sigmoid colon and also extends along the anterolateral surface of the bladder dome and to the right pelvic sidewall. Retroperitoneum: No mass. Atherosclerotic calcifications of intra-abdominal arterial vessels. 3.2 cm fusiform infrarenal abdominal aortic aneurysm. Pelvis: Moderately distended urinary bladder with small stones. Moderate prostatomegaly. Soft Tissues: Increasing subcutaneous gas in the left lower abdomen, extending to the skin surface, a nd probably associated with the peritoneal collection and/or skin incision, grossly unchanged in size . Small fat-containing umbilical hernia. Bones: No acute osseous finding. IMPRESSION: Stable abdominopelvic and subcutaneous abscess Reviewed, dictated and finalized at location K.
--- NOTE | ~2024-10-12 | CT_ITS ---
EXAMINATION: Limited noncontrast enhanced CT examination of the abdomen and pelvis. Abscessogram Drainage catheter placement within the anterior abdominal fluid collection. Aspiration of purulent fluid with specimens sent for culture. CT guide absc cath placement DATE: 10/12/2024 12:43 INDICATION: 79-year-old gentleman with a history of perforated diverticulitis, with subsequent absces s formation post percutaneous drainage presents with recurrent purulent drainage from the anterior ab dominal wall, caudal and to the left of midline. CT examination demonstrated a small rim-enhancing fl uid collection within the anterior abdomen, likely causing patient's spontaneous purulent drainage. TECHNIQUE: The procedure including the risks, benefits, and alternatives was discussed with both the patient and his . Risks discussed included bleeding, nontargeted drainage and worsening infection . The patient and his understood the risks and benefits of the procedure and agreed to proceed. The skin overlying the anterior abdominal wall was prepped and draped in usual sterile fashion. Ane sthetic was administered with 1% lidocaine without epinephrine subcutaneously. A 5 Rwandan one-step ne edle was inserted into the anterior abdominal fluid collection via the pre-existing percutaneous trac t and the needle removed. A sample of purulent fluid was then evacuated and passed off the table as a specimen for culture. A small amount of dilute contrast was administered via the 5 Rwandan one-step catheter into the cavity along the anterior abdominal wall and repeat imaging was performed. This demonstrated a fistulous connection between the anterior abdominal wall fluid collection and the proximal sigmoid colon. The 5 Rwandan one-step catheter was then cut and a J-wire advanced. The catheter was then removed and following serial dilatation an 8 Rwandan pigtail catheter was placed into the anterior abdominal wall fluid collection, and attached to accordion drainage. The drainage catheter was then secured to the skin and a sterile dressing applied. The patient tolerated the procedure without difficulty, and was transported to the outpatient area fo r recovery and subsequent admission for IV antibiotics and wound care. The dose-length product was 328.27 mGy-cm. There were no immediate complications. IMPRESSION: Limited noncontrast enhanced CT examination of the abdomen and pelvis. Technically successful CT-guided abscess drainage and abscessogram with placement of a pigtail cathet er. Reviewed, dictated and finalized at location A. IMPRESSION: Limited noncontrast enhanced CT examination of the abdomen and pelvis. Technically successful CT-guided abscess drainage and abscessogram with placeme nt of a pigtail catheter.
--- OUTSIDE RECORDS SUMMARY | 2024-10-12 09:57 | XMS_ITS | Encounter Summary ---
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
--- OUTSIDE RECORDS SUMMARY | 2024-10-12 09:57 | XMS_ITS | Encounter Summary ---
Author Organization [facility] Address [address] [place] [address] Care Team Providers Care Cover Remover Name Role Phone Gilbert Anderson MD Unavailable [phone] Brock Ulrich MD Primary Care Provider [phone] Mandeep Christine DO Primary Care Provider [phone] Encounter Details Date Type Department Care Team (Late st Contact Info) Description 05/26/2024 Telephone [facility] Home Care Services [address] [place] [address] Erinn Bedolla RN Social History Tobacco Use Types Packs/Day Years Used Date Smoking Tobacco: Former Cigarettes Q uit: 1979 Smokeless Tobacco: Never Alcohol Use Standard Drinks/Week Comments Yes 1 (1 standard drink = 0.6 oz pur e alcohol) Sex and Gender Information Value Date Recorded Sex Assigned at Not on file 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 Gender Identity Male 03/31/2023 8:02 AM CDT Sexual Orientation Straight 03/31/2023 8: 02 AM CDT documented as of this encounter Plan of Treatment Not on file documented as of this encounter Visit Diagnoses Not on filedocumented in this encounter Care Teams Cover Remover Relationship Specialty Start Date End Date Brock Ulrich MD PCP - General Family Practice 12/18/22 06/22/24 Mandeep Christine DO [address] [place] [address] PCP - General Internal Medicine 09/22/24 Gilbert Anderson MD Medical Oncologist/Bookmaker'S Clerk Hematology and Oncology 04/19/18 documented as of this encounter
--- OUTSIDE RECORDS SUMMARY | 2024-10-12 09:57 | XMS_ITS | Encounter Summary ---
Author Organization [facility] Address [address] 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
--- OUTSIDE RECORDS SUMMARY | 2024-10-12 09:57 | XMS_ITS | Encounter Summary ---
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
--- OUTSIDE RECORDS SUMMARY | 2024-10-12 09:57 | XMS_ITS | Clinical Summary ---
Author Organization [facility] Address [address] [place] [address] Phone Care Team Providers Care Marble Finisher Name Role Phone Gilbert Anderson MD Unavailable [phone] Mandeep Christine DO Primary Care Provider [phone] Allergies Active Allergy Reactions Criticality Noted Date [...] collected on 02/25/23 consistent with AD - qagf229/abeta42: 0.060 (H), Ab42 573 (L), t-tau 350 (H), p-tau 34.6 (H) -Diagnosis: AD -Namenda/memantine 10 mg BID, sertraline/Zoloft 100 mg, did not want to pursue anti amyloid therapy -discontinued donepezil/Aricept d/t GI upset, diverticultis, wt loss Assessment & Plan (05/25/2024 10:54 AM 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): Stop donepezil/Aricept due to wt loss, diverticulitis, low appetite Continue Namenda/memantine 10 mg BID Physical therapy and occupational therapy at home Referred to Geriatrics for primary care ( request) Assessment & Plan (04/03/2024 9:07 AM CDT): -Onset: 2019 -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, moderate WMD -Biomarkers: CSF ADEVL collected on 02/25/23 consistent with AD - yxom439/abeta42: 0.060 (H), Ab42 573 (L), t-tau 350 (H), p-tau 34.6 (H) -Diagnosis: AD -Relevant medications: donepezil/Aricept 5 mg (GI upset with higher dose), Namenda/memantine 10 mg BID, sertraline/Zoloft 100 mg, did not want to pursue anti amyloid therapy PLAN: Eliazar dias Consider increasing sertraline/Zoloft moving forward Increase physical activity, two community centers in [place] 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, 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 Medicine [address] [place] [address] [place] [address] [place] [address] Isabella Reddy MD 09/18/2024 Orders Only [facility] Medicine [address] [place] [address] [place] [address] [place] [address] Isabella Reddy MD 09/18/2024 Results Follow-Up [facility] Medicine [address] [place] [address] [place] [address] [place] [address] Isabella Reddy MD 09/15/[address] [place] [address] [place] [address] Isabella Reddy MD [facility] facility 09/14/2024 8:55 PM CDT Lab [facility] [address] [place] [address] Screening for hyperlipidemia; Screening for diabetes mellitus; Vitamin D deficiency; Screening for viral disease; Weakness; Iron deficiency anemia secondary to inadequate dietary iron intake; Screening for thyroid disorder 09/14/2024 4:00 PM CDT Office Visit [facility] Medicine [address] [place] [address] [place] [address] [place] [address] Isabella Reddy MD Iron deficiency anemia secondary to inadequate dietary iron intake (Primary Dx); Vitamin D deficiency; Screening for diabetes mellitus; Screening for hyperlipidemia; Screening for thyroid disorder; Weakness; Screening for viral disease; Localized swelling, mass, or lump of lower extremity, bilateral; Bilateral leg edema; Abscess of abdominal cavity (HCC) 09/14/2024 Telephone [facility] Geriatric Medicine [address] Medical Office [address] [place] [address] Tianna Prakash RN 08/27/2024 Orders Only [facility] Scanning, Provider 07/25/2024 Documentation [facility] [facility] First Floor [address] [place] [address] Halina Fontenot, BILL from Last 3 Months Immunizations Immunization Administration [...] Micrographic Technique) - (Added by TW Conv) HI TRURL ELECTROSURG RESCJ PROSTATE BLEED COMPLETE Transurethral Resection Of Prostate (TURP) - (Added by TW Conv) HI UNLISTED PROCEDURE VASCUL AR INJECTION Arterial Catheterization - -cardiac cath in 2007 (Added by TW Conv) HI COLONOSCOPY FLX DX W/RALEIGH J SPEC WHEN PFRMD Colonoscopy (Fiberoptic) - (Added by TW Conv) HI ESOPHAGOGASTRODUODENOSCOP Y TRANSORAL DIAGNOSTIC Diagnostic Esophagogastroduodenoscopy - [...] on file 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 73 m2 Comment: [...] Reddy MD LAB BLOOD ORDERABLES Final Result [facility] [place] [address] * Differential, auto (09/14/2024 5:50 PM CDT) Pathologist [facility] Neutrophil abs 3.87 1.50 - 6.50 K/cumm Imm gran abs 0.01 0.00 - 0.10 K/cumm [facility] Lymphocyte abs 1.17 0.80 - 3.30 K/cumm [facility] Monocyte abs 0.68 0.20 - 0.80 K/cumm [facility] Eosinophil abs 0.11 0.00 - 0.50 K/cumm [facility] Basophil abs 0.03 0.00 - 0.10 K/cumm [facility] Neutrophil pct 65.9 % [facility] Comment: Interpretive Data Percent cell count reference ranges are not reported, since discordance with absolute values may lead to misinterpretation of CBC data. Current Interpretive Data was last revised on 2017. Imm gran pct 0.2 % [facility] Comment: Interpretive Data Percent cell count reference ranges are not reported, since discordance with absolute values may lead to misinterpretation of CBC data. Current Interpretive Data was last revised on 2017. Lymphocyte pct 19.9 % [facility] Comment: Interpretive Data Percent cell count reference ranges are not reported, since discordance with absolute values may lead to misinterpretation of CBC data. Current Interpretive Data was last revised on 2017. Monocyte pct 11.6 % [facility] Comment: Interpretive Data Percent cell count reference ranges are not reported, since discordance with absolute values may lead to misinterpretation of CBC data. Current Interpretive Data was last revised on 2017. Eosinophil pct 1.9 % [facility] Comment: Interpretive Data Percent cell count reference ranges are not reported, since discordance with absolute values may lead to misinterpretation of CBC data. Current Interpretive Data was last revised on 2017. Basophil pct 0.5 % [facility] Comment: Interpretive Data Percent cell count reference ranges are not reported, since discordance with absolute values may lead to misinterpretation of CBC data. Current Interpretive Data was last revised on 2017. Blood 09/14/2024 5:50 PM CDT 09/14/2024 6:10 PM CDT Isabella Reddy MD LAB BLOOD ORDERABLES Final Result [facility] [place] [address] * (ABNORMAL) Thyroid Function [place] (09/14/2024 5:50 PM CDT) TSH 4.68(H) 0.30 - 4.20 mcIUnit/mL Blood 09/14/2024 5:50 PM CDT 09/14/2024 6:10 PM CDT Isabella Reddy MD LAB BLOOD ORDERABLES Final Result [facility] [place] [address] * (ABNORMAL) CBC with auto differential (09/14/2024 5:50 PM CDT) [facility] WBC 5.87 3.80 - 9.90 K/cumm Hgb 11.1(L) 13.0 - 17.5 g/dL [facility] Hct 35.0(L) 38.9 - 50.3 % [facility] Plt 297 150 - 400 K/cumm [facility] MPV 9.7 9.1 - 12.3 fL [facility] RBC 3.88(L) 4.30 - 5.80 M/cumm [facility] MCV 90.2 81.3 - 96.4 fL [facility] MCH 28.6 27.1 - 33.3 pg [facility] MCHC 31.7(L) 32.3 - 35.7 g/dL [facility] RDW CV 15.9(H) 11.1 - 14.9 % [facility] RDW SD 52.8(H) 35.7 - 48.1 fL [facility] NRBC abs 0.00 0.00 - 0.01 K/cumm [facility] Blood 09/14/2024 5:50 PM CDT 09/14/2024 6:10 PM CDT Isabella Reddy MD LAB BLOOD ORDERABLES Final Result [facility] [place] [address] * (ABNORMAL) Hepatitis B core antibody, total Blood (09/14/2024 5:50 PM CDT) [facility] Hep B core IgG/IgM Reactive( A) Nonreactive Blood 09/14/2024 5:50 PM CDT 09/14/2024 6:10 PM CDT Isabella Reddy MD LAB MICROBIOLOGY - G ENERAL ORDERABLES Final Result Performing Organization Address [facility] Co de Phone Number [facility] Department [place] [address] * (ABNORMAL) Vitamin D 25 hydroxy (09/14/2024 5:50 PM CDT) [facility] Vitamin D 25-OH 23(L) 30 - 80 ng/mL Blood 09/14/2024 5:50 PM CDT 09/14/2024 6:10 PM CDT Isabella Reddy MD LAB BLOOD ORDERABLES Final Result Performing Organization Address [facility] de Phone Number [facility] [place] [address] * Hepatitis B surface antibody (immune status) Blood (09/14/2024 5:50 PM CDT) [facility] HBsAb (immune status) Reactive Comment:This result is consi stent with immunity to Hepatitis B Virus when used in the setting of routine screening. Current interpretive data was last revised on 22 HBsAb (immune status) index 4,422.0 mIUnits/m L [facility] Blood 09/14/2024 5:50 PM CDT 09/14/2024 6:10 PM CDT Isabella Reddy MD LAB MICROBIOLOGY - G ENERAL ORDERABLES Final Result Performing Organization Address [facility] [place] [address] * Hepatitis B Surface Antigen Blood (09/14/2024 5:50 PM CDT) HepBsAg Nonreactive Nonreactive Blood 09/14/2024 5:50 PM CDT 09/14/2024 6:10 PM CDT Result Choco Reddy MD LAB MICROBIOLOGY - G ENERAL ORDERABLES Final Result Performing Organization Address [facility] Co de Phone Number [facility] [place] [address] * T4, free (09/14/2024 5:50 PM CDT) [facility] Free T4 1.08 0.90 - 1.70 ng/dL Blood 09/14/2024 5:50 PM CDT 09/14/2024 6:15 PM CDT Narrative [facility] - 09/14/2024 7:25 PM CDT This test was reflexed from a TSH result. Result [facility] Isabella Reddy MD LAB BLOOD ORDERABLES Final Result Performing Organization Address [facility] de Phone Number [facility] [place] [address] * (ABNORMAL) Hemoglobin A1c (09/14/2024 5:50 PM CDT) [facility] Hgb A1C 5.8(H) 4.0 - 5.6 % Estimated Average Glucose 120 mg/dL [facility] Comment: The ADA recommends reporting [...] BLOOD ORDERABLES Final Result Performing Organization Address [facility]/ZIP Co de Phone Number [facility] [place] [address] * Lipid panel (09/14/2024 5:50 PM CDT) [...] on 2018. Triglycerides 92 <=149 mg/dL [facility] Comment: Interpretive Data Ages < or [...] revised on 2018. HDL 62 >=40 mg/dL [facility] Comment: Interpretive Data Ages < [...] 2018. LDL, calculated 87 <=129 mg/dL [facility] Comment: Interpretive Data Ages < or [...] 3. Lamonte Starkey et al. ALLAN Cardiol. 2020 October 12;5(5):540-548. doi: 10.1001/jamacardio.2020.0013 Current Interpretive Data was last revised on 2024. Non-HDL Cholesterol 104 mg/dL [facility] Comment: Interpretive Data Ages < [...] last revised on 2018. Chol/HDL ratio 3 [facility] Blood 09/14/2024 5:50 PM CDT 09/14/2024 6:10 PM CDT us Isabella Reddy MD LAB BLOOD ORDERABLES Final Result [facility] Department [place] [address] * (ABNORMAL) Comprehensive metabolic panel (09/14/2024 5:50 PM CDT) Sodium 143 135 - 145 mmol/L Potassium, pl 3.8 3.3 - 4.9 mmol/L [facility] Chloride 106 97 - 110 mmol/L [facility] CO2 33(H) 22 - 32 mmol/L [facility] Anion gap 4 2 - 15 mmol/L [facility] BUN 17 6 - 25 mg/dL [facility] Creatinine 0.96 0.80 - 1.30 mg/dL [facility] Glucose 110 70 - 199 mg/dL [facility] Comment: Interpretive Data Fasting glucose [...] 2022. Calcium 8.9 8.5 - 10.3 mg/dL [facility] Bilirubin, total 0.3 0.1 - 1.2 mg/dL [facility] Protein, pl 7.0 6.5 - 8.5 g/dL [facility] Albumin 3.9 3.5 - 5.0 g/dL [facility] Alk phos 99 40 - 130 Units/L [facility] ALT 19 7 - 55 Units/L [facility] AST 25 10 - 50 Units/L [facility] Blood 09/14/2024 5:50 PM CDT 09/14/2024 6:10 PM CDT us Isabella Reddy MD LAB BLOOD ORDERABLES Final Result [facility] [place] [address] * SCAN - LABS (08/27/2024) us Provider Scanning Final Result from Last 3 Months Insurance [facility] [employer] MEDICARE [employer] Care Teams Marble Finisher Relationship Specialty Start Date End Date Mandeep Christine DO [address] [place] [address] PCP - General Internal Medicine 09/22/24 Gilbert Anderson MD Medical Oncologist/Automatic Maintainer Hematology and Oncology 04/19/18
--- OUTSIDE RECORDS SUMMARY | 2024-10-12 09:57 | XMS_ITS | Encounter Summary ---
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
--- OUTSIDE RECORDS SUMMARY | 2024-10-12 09:57 | XMS_ITS | Referral Summary ---
Author Organization [facility] Address [address] [facility] [place] [address] Phone Care Team Providers Care Field Training Agent Name Role Phone Gilbert Anderson MD Unavailable [phone] Mandeep Christine DO Primary Care Provider [phone] Encounters Date Type Department Care Team Description 09/18/2024 Telephone [facility] [facility] 12th [place] [address] [place] [address] Isabella Reddy MD 09/18/2024 Orders Only [facility] 12th [place] [address] [place] [address] Isabella Reddy MD 09/18/2024 Results Follow-Up [facility] [address] [facility] 12th [place] [address] [place] [address] Isabella Reddy MD 09/15/2024 Telephone [facility] [address] [facility] 12th [place] [address] [place] [address] Isabella Reddy MD [facility] 09/14/2024 8:55 PM CDT Lab [facility] [address] [place] [address] Screening for hyperlipidemia; Screening for diabetes mellitus; Vitamin D deficiency; Screening for viral disease; Weakness; Iron deficiency anemia secondary to inadequate dietary iron intake; Screening for thyroid disorder 09/14/2024 Telephone [facility] [address] [facility] [address] Medical Office Building 2 [place] [address] Tianna Prakash RN 09/14/2024 4:00 PM CDT Office Visit [facility] [address] [facility] 12th [place] [address] [place] [address] Isabella Reddy MD Iron deficiency anemia secondary to inadequate dietary iron intake (Primary Dx); Vitamin D deficiency; Screening for diabetes mellitus; Screening for hyperlipidemia; Screening for thyroid disorder; Weakness; Screening for viral disease; Localized swelling, mass, or lump of lower extremity, bilateral; Bilateral leg edema; Abscess of abdominal cavity (HCC) 08/27/2024 Orders Only [facility] Scanning, Provider 07/25/2024 Documentation [facility] [address] [facility] First Floor [address] [place] [address] Halina Fontenot, ENVIRONMENTAL MANAGEMENT SPECIALIST from Last 3 Months Allergies Active Allergy [...] collected on 02/25/23 consistent with AD - ovbz543/abeta42: 0.060 (H), Ab42 573 (L), t-tau 350 (H), p-tau 34.6 (H) -Diagnosis: AD -Namenda/memantine 10 mg BID, sertraline/Zoloft 100 mg, did not want to pursue anti amyloid therapy -discontinued donepezil/Aricept d/t GI upset, diverticultis, wt loss Assessment & Plan (05/25/2024 10:54 AM INFORMATION SYSTEMS TECHNICIAN): Stop donepezil/Aricept due to wt loss, diverticulitis, low appetite Continue Namenda/memantine 10 mg BID Physical therapy and occupational therapy at home Referred to Geriatrics for primary care ( request) Assessment & Plan (04/03/2024 9:07 AM CDT): -Onset: 2019 -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, moderate WMD -Biomarkers: CSF ADEVL collected on 02/25/23 consistent with AD - wujz424/abeta42: 0.060 (H), Ab42 573 (L), t-tau 350 (H), p-tau 34.6 (H) -Diagnosis: AD -Relevant medications: donepezil/Aricept 5 mg (GI upset with higher dose), Namenda/memantine 10 mg BID, sertraline/Zoloft 100 mg, did not want to pursue anti amyloid therapy PLAN: Hide dino dias Consider increasing sertraline/Zoloft moving forward Increase physical activity, two community centers in [place] 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, counseling for Director Of Education [facility] Please send referral to 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 benefits Iron deficiency anemia due to chronic blood loss 08/02/2019 Iron deficiency anemia secelana genna to inadequate dietary iron intake 04/19/2018 [...] on file Legal Sex Male 9:32 PM INFORMATION SYSTEMS TECHNICIAN Gender Identity Male 03/31/2023 8:02 AM CDT Sexual Orientation Straight 03/31/2023 8: 02 AM CDT Last Filed Vital Signs Vital Sign Reading Time Taken Comments Blood Pressure 145/79 09/14/2024 3:39 PM CDT Pulse 69 09/14/2024 3:39 PM CDT Temperature 36.8 C (98.3 F) 09/14/2024 3:39 PM CDT Respiratory Rate 16 08/04/2019 12:00 PM INFORMATION SYSTEMS TECHNICIAN Oxygen Saturation 99% 09/14/2024 3:39 PM CDT [...] * eGFR (09/14/2024 5:50 PM CDT) Pathologist [facility] eGFR 79 >=60 mL/min/1. 73 m2 Comment: [...] Reddy MD LAB BLOOD ORDERABLES Final Result [facility] [address] [facility] [place] [address] * Differential, auto (09/14/2024 5:50 PM CDT) Pathologist [facility] Neutrophil abs 3.87 1.50 - 6.50 K/cumm Imm gran abs 0.01 0.00 - 0.10 K/cumm [facility] Lymphocyte abs 1.17 0.80 - 3.30 K/cumm [facility] Monocyte abs 0.68 0.20 - 0.80 K/cumm [facility] Eosinophil abs 0.11 0.00 - 0.50 K/cumm [facility] Basophil abs 0.03 0.00 - 0.10 K/cumm [facility] Neutrophil pct 65.9 % [facility] Comment: Interpretive Data Percent cell count reference ranges are not reported, since discordance with absolute values may lead to misinterpretation of CBC data. Current Interpretive Data was last revised on 2017. Imm gran pct 0.2 % [facility] Comment: Interpretive Data Percent cell count reference ranges are not reported, since discordance with absolute values may lead to misinterpretation of CBC data. Current Interpretive Data was last revised on 2017. Lymphocyte pct 19.9 % [facility] Comment: Interpretive Data Percent cell count reference ranges are not reported, since discordance with absolute values may lead to misinterpretation of CBC data. Current Interpretive Data was last revised on 2017. Monocyte pct 11.6 % [facility] Comment: Interpretive Data Percent cell count reference ranges are not reported, since discordance with absolute values may lead to misinterpretation of CBC data. Current Interpretive Data was last revised on 2017. Eosinophil pct 1.9 % [facility] Comment: Interpretive Data Percent cell count reference ranges are not reported, since discordance with absolute values may lead to misinterpretation of CBC data. Current Interpretive Data was last revised on 2017. Basophil pct 0.5 % [facility] Comment: Interpretive Data Percent cell count reference ranges are not reported, since discordance with absolute values may lead to misinterpretation of CBC data. Current Interpretive Data was last revised on 2017. Blood 09/14/2024 5:50 PM CDT 09/14/2024 6:10 PM CDT Isabella Reddy MD LAB BLOOD ORDERABLES Final Result [facility] [address] [facility] [place] [address] * (ABNORMAL) Thyroid Function Jackson (09/14/2024 5:50 PM CDT) TSH 4.68(H) 0.30 - 4.20 mcIUnit/mL Blood 09/14/2024 5:50 PM CDT 09/14/2024 6:10 PM CDT Isabella Reddy MD LAB BLOOD ORDERABLES Final Result Performing Organization Address [facility]/ZIP Co de Phone Number [facility] [place] [address] * (ABNORMAL) CBC with auto differential (09/14/2024 5:50 PM CDT) [facility] WBC 5.87 3.80 - 9.90 K/cumm Hgb 11.1(L) 13.0 - 17.5 g/dL [facility] Hct 35.0(L) 38.9 - 50.3 % [facility] Plt 297 150 - 400 K/cumm [facility] MPV 9.7 9.1 - 12.3 fL [facility] RBC 3.88(L) 4.30 - 5.80 M/cumm [facility] MCV 90.2 81.3 - 96.4 fL [facility] MCH 28.6 27.1 - 33.3 pg [facility] MCHC 31.7(L) 32.3 - 35.7 g/dL [facility] RDW CV 15.9(H) 11.1 - 14.9 % [facility] RDW SD 52.8(H) 35.7 - 48.1 fL [facility] NRBC abs 0.00 0.00 - 0.01 K/cumm [facility] Blood 09/14/2024 5:50 PM CDT 09/14/2024 6:10 PM CDT Result [facility] Isabella Reddy MD LAB BLOOD ORDERABLES Final Result [facility] [place] [address] * (ABNORMAL) Hepatitis B core antibody, total Blood (09/14/2024 5:50 PM CDT) [facility] Hep B core IgG/IgM Reactive( A) Nonreactive Blood 09/14/2024 5:50 PM CDT 09/14/2024 6:10 PM CDT Isabella Reddy MD LAB MICROBIOLOGY - G ENERAL ORDERABLES Final Result Performing Organization Address City/[facility]/ZIP Co de Phone Number [facility] [place] [address] * (ABNORMAL) Vitamin D 25 hydroxy (09/14/2024 5:50 PM CDT) Pathologist [facility] Vitamin D 25-OH 23(L) 30 - 80 ng/mL Blood 09/14/2024 5:50 PM CDT 09/14/2024 6:10 PM CDT Isabella Reddy MD LAB BLOOD ORDERABLES Final Result Performing Organization Address [facility] de Phone Number [facility] [place] [address] * Hepatitis B surface antibody (immune status) Blood (09/14/2024 5:50 PM CDT) Pathologist [facility] HBsAb (immune status) Reactive Comment:This result is consi stent with immunity to Hepatitis B Virus when used in the setting of routine screening. Current interpretive data was last revised on 22 HBsAb (immune status) index 4,422.0 mIUnits/m L [facility] Blood 09/14/2024 5:50 PM CDT 09/14/2024 6:10 PM CDT Isabella Reddy MD LAB MICROBIOLOGY - G ENERAL ORDERABLES Final Result Performing Organization Address City/[facility] Co de Phone Number [facility] [place] [address] * Hepatitis B Surface Antigen Blood (09/14/2024 5:50 PM CDT) [facility] HepBsAg Nonreactive Nonreactive Blood 09/14/2024 5:50 PM CDT 09/14/2024 6:10 PM CDT Result [facility] Isabella Reddy MD LAB MICROBIOLOGY - G ENERAL ORDERABLES Final Result Performing Organization Address City/[facility] Co de Phone Number [facility] [place] [address] * T4, free (09/14/2024 5:50 PM CDT) [facility] Free T4 1.08 0.90 - 1.70 ng/dL Blood 09/14/2024 5:50 PM CDT 09/14/2024 6:15 PM CDT Narrative [facility] - 09/14/2024 7:25 PM CDT This test was reflexed from a TSH result. Isabella Reddy MD LAB BLOOD ORDERABLES Final Result Performing Organization Address [facility] de Phone Number [facility] [place] [address] * (ABNORMAL) Hemoglobin A1c (09/14/2024 5:50 PM CDT) [facility] Hgb A1C 5.8(H) 4.0 - 5.6 % Estimated Average Glucose 120 mg/dL [facility] Comment: The ADA recommends reporting an estimated Average Glucose (eAG) with all Hemoglobin A1c results using the equation derived from a study of 507 normal and diabetic adults. Minority populations were underrepresented and children were not included. (Diabetes Care 2020; 43(S1): S66-S76). The eAG is not equivalent to a fasting glucose. Blood 09/14/2024 5:50 PM CDT 09/14/2024 6:10 PM CDT Result [facility] Isabella Reddy MD LAB BLOOD ORDERABLES Final Result Performing Organization Address City/[facility] Co de Phone Number [facility] [place] [address] * Lipid panel (09/14/2024 5:50 PM CDT) [...] on 2018. Triglycerides 92 <=149 mg/dL [facility] Comment: Interpretive Data Ages < [...] on 2018. HDL 62 >=40 mg/dL [facility] Comment: Interpretive Data Ages < [...] 2018. LDL, calculated 87 <=129 mg/dL [facility] Comment: Interpretive Data Ages < [...] revised on 2024. Non-HDL Cholesterol 104 mg/dL [facility] Comment: Interpretive Data Ages < [...] last revised on 2018. Chol/HDL ratio 3 [facility] Blood 09/14/2024 5:50 PM CDT 09/14/2024 6:10 PM CDT us Isabella Reddy MD LAB BLOOD ORDERABLES Final Result [facility] [address] [facility] Department [place] [address] * (ABNORMAL) Comprehensive metabolic panel (09/14/2024 5:50 PM CDT) Sodium 143 135 - 145 mmol/L Potassium, pl 3.8 3.3 - 4.9 mmol/L [facility] Chloride 106 97 - 110 mmol/L [facility] CO2 33(H) 22 - 32 mmol/L [facility] Anion gap 4 2 - 15 mmol/L [facility] BUN 17 6 - 25 mg/dL [facility] Creatinine 0.96 0.80 - 1.30 mg/dL [facility] Glucose 110 70 - 199 mg/dL [facility] Comment: Interpretive Data Fasting glucose [...] 2022. Calcium 8.9 8.5 - 10.3 mg/dL [facility] Bilirubin, total 0.3 0.1 - 1.2 mg/dL [facility] Protein, pl 7.0 6.5 - 8.5 g/dL [facility] Albumin 3.9 3.5 - 5.0 g/dL [facility] Alk phos 99 40 - 130 Units/L [facility] ALT 19 7 - 55 Units/L [facility] AST 25 10 - 50 Units/L [facility] Blood 09/14/2024 5:50 PM CDT 09/14/2024 6:10 PM CDT us Isabella Reddy MD LAB BLOOD ORDERABLES Final Result [facility] [address] [facility] Department [place] [address] * SCAN - LABS (08/27/2024) us Provider Scanning Final Result from Last 3 Months Insurance FOR LIFE MEDICARE FOR LIFE Care Teams Field Training Agent Relationship Specialty Start Date End Date Mandeep Christine DO [address] [place] [address] PCP - General Internal Medicine 09/22/24 Gilbert Anderson MD Medical Oncologist/Systems Administration Analyst Hematology and Oncology 04/19/18
--- OUTSIDE RECORDS SUMMARY | 2024-10-12 09:57 | XMS_ITS | Encounter Summary ---
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
--- OUTSIDE RECORDS SUMMARY | 2024-10-12 09:57 | XMS_ITS | Encounter Summary ---
Author Organization [facility] Address [address] [place] [address] Phone Care Team Providers Care Fructose Loader Name Role Phone Gilbert Anderson MD Unavailable [phone] Mandeep Christine DO Primary Care Provider [phone] Encounter Details Date Type Department Care Team (Late st Contact Info) Description 09/18/2024 Results Follow-Up [facility] Geriatric Medicine [address] [facility] 12th [place] [address] [place] [address] Isabella Reddy MD [address] [place] [address] Social History Tobacco Use Types Packs/Day Years Used Date Smoking Tobacco: Former Cigarettes Q uit: 1979 Smokeless Tobacco: Never Alcohol Use Standard Drinks/Week Comments Yes 1 (1 standard drink = 0.6 oz pur e alcohol) Sex and Gender Information Value Date Recorded Sex Assigned at Not on file Legal Sex Male 9:32 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
--- OUTSIDE RECORDS SUMMARY | 2024-10-12 09:57 | XMS_ITS | Encounter Summary ---
Author Organization [facility] Address [address] [place] [address] Phone Care Team Providers Care Contact Lens Curve Grinder Name Role Phone Gilbert Anderson MD Unavailable [phone] Paul Berkowitz DO Primary Care Provider [phone] Brock Ulrich MD Primary Care Provider [phone] Mandeep Christine DO Primary Care Provider [phone] Encounter Details Date Type Department Care Team [...] on file Legal Sex Male 9:32 PM KICK PRESS SETTER Gender Identity Male 03/31/2023 8:02 AM [...] on filedocumented in this encounter Care Teams Contact Lens Curve Grinder Relationship Specialty Start Date End Date Paul Berkowitz DO PCP - General Internal Medicine 08/01/19 12/17/22 Brock Ulrich MD PCP - General Family Practice 12/18/22 06/22/24 Mandeep Christine DO [address] [place] [address] PCP - General Internal Medicine 09/22/24 Gilbert Anderson MD Medical Oncologist/Photographic Intelligence Officer Hematology and Oncology 04/19/18 documented as of this encounter
--- OUTSIDE RECORDS SUMMARY | 2024-10-12 09:57 | XMS_ITS | Encounter Summary ---
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
--- OUTSIDE RECORDS SUMMARY | 2024-10-12 09:57 | XMS_ITS | Encounter Summary ---
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
--- OUTSIDE RECORDS SUMMARY | 2024-10-12 09:57 | XMS_ITS | Encounter Summary ---
Author Organization [facility] Address [address] [place] [address] Phone Care Team Providers Care Consolidation Accountant Name Role Phone Gilbert Anderson MD Unavailable [phone] Brock Ulrich MD Primary Care Provider [phone] Mandeep Christine DO Primary Care Provider [phone] Encounter Details Date Type Department Care Team [...] on file Legal Sex Male 9:32 PM RADIATION TECHNICIAN Gender Identity Male 03/31/2023 8:02 AM [...] on filedocumented in this encounter Care Teams Consolidation Accountant Relationship Specialty Start Date End Date Brock Ulrich MD PCP - General Family Practice 12/18/22 06/22/24 Mandeep Christine DO [address] [place] [address] PCP - General Internal Medicine 09/22/24 Gilbert Anderson MD Medical Oncologist/Art Coordinator Hematology and Oncology 04/19/18 documented as of this encounter
[2024-10-12 10:19] LABS: Mean Platelet Volume 9.2 fl (7.4-10.4); Platelet Count Result 251 k/mm3 (150-375)
[2024-10-12 10:40] LABS: INR 1.2; Prothrombin Time 15.3 Seconds (11.1-14.7)
--- NOTE | 2024-10-12 13:04 | PM.IMHP ---
H&P: HPI History of Present Illness Date/Time: 10/12/24 13:04 Chief Complaint: Recurrent intra-abdominal abscess Narrative: This is an 79-year-old man who presents with a recurrent intra-abdominal abscess found on recent CT. He has a prior history of hospitalization for diverticulitis with an abscess. He had 2 drains placed at that time and was eventually able to be discharged from the hospital. He currently lives in a memory care facility which is an assisted living facility. He has advanced dementia with frequent agitation and disorientation. He had an abdominal wall abscess that was incised and drained and has mostly healed, but he was still having some purulence drainage from a pinpoint opening at the abscess site. A follow-up CT was performed last week and this showed minimal subcutaneous fluid but still a persistent intra-abdominal abscess. He was then scheduled today for a CT-guided abscess drainage. He will need continued treatment of this and will therefore be admitted to the hospital for antibiotics and further monitoring of the infection. He is doing well since the drainage procedure and appears hemodynamically stable. Review of Systems Review of Systems: All systems reviewed & are unremarkable except as noted in HPI and below Constitutional: Constitutional: Denies chills, Denies fever(s), Denies headache(s) and Denies weight loss Eyes: Eyes: Denies change in vision ENT: Denies dizziness, Denies headache(s), Denies neck mass and Denies throat swelling Cardiovascular: Cardiovascular: Denies chest pain, Denies lightheadedness and Denies dyspnea Respiratory: Respiratory: Denies cough, Denies dyspnea and Denies wheezing Gastrointestinal: Gastrointestinal: Denies abdominal pain, Denies change in bowel habits, Denies nausea and Denies vomiting Genitourinary: Genitourinary: Denies hematuria and Denies dysuria Musculoskeletal: Musculoskeletal: Reports as per HPI Integumentary/Breasts: Skin/Breast: Reports as per HPI Neurologic: Denies dizziness and Denies headache(s) Allergic/Immunologic: Allergic/Immunologic: Denies throat swelling and Denies wheezing PMFSH Past Medical History Medical History CHF (congestive heart failure) BMI 37.0-37.9, adult Melanoma Arthritis Mild dementia Benign prostatic hyperplasia Benign essential hypertension Chronic GERD Iron deficiency anemia Surgical History Surgical History History of incision and drainage 08/24/24 Incision and drainage of complex abdominal wall extending to the fascia and rectus muscle Dr. Sanches History of melanoma excision History of bilateral cataract extraction Status post repair of paraesophageal diaphragmatic hernia History of right inguinal hernia repair History of transurethral resection of prostate Family History Family History Mother Hypertension Family history of coronary artery disease Heart disease Father Family history of primary malignant neoplasm of liver Sibling No problems noted. Sibling No problems noted. Social History Social History Social History: Surrogate medical decision maker: Rula Watson, spouse. Code status: Full code. Smoking packs per day: 1 Smoking cigarettes per day: 20.0 Years smoked: 50 Smoking pack-years: 50.00 Smoking status: Former smoker Tobacco type: cigarettes Second hand tobacco smoke exposure: No Smoking end date: 06/14/78 Alcohol intake: never Drinks per week: 3 Substance use: never Substance use type: does not use Do You Feel Safe in your Home?: Yes Lack of Transportation: No Lack of Food: Never True Current Housing: I Have Housing Concerned About Future Housing: No Difficulty Paying Gas/Electric Bills: No Difficulty Paying for Meds: No Currently Unemployed: No Education: Bachelor's Degree Difficulty w/ Childcare or Family Care: No Living arrangements: with family Additional living arrangements comments: Lives with spouse in [place]. 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 Gender identity (if verbalized by the patient): Male Spiritual care concerns: No Meds Home Medications and Allergies Home Medications ?Medication ?Instructions ?Recorded ?Confirmed ?Type memantine 10 mg tablet 10 mg PO BID #180 tabs 04/17/24 10/12/24 Rx ferrous sulfate 325 mg (65 mg 325 mg PO BID #180 tabs 06/21/24 10/12/24 Rx iron) tablet,delayed release apixaban 5 mg tablet (Eliquis) 5 mg PO BID #180 tabs 07/02/24 10/12/24 Rx bumetanide 1 mg tablet 1 mg PO DAILY #30 tabs 07/24/24 10/12/24 Rx buspirone 10 mg tablet 10 mg PO TID PRN anxiety #45 tabs 08/03/24 10/12/24 Rx sertraline 100 mg tablet 150 mg (1.5 x 100 mg) PO DAILY 08/17/24 10/12/24 Rx #135 tabs levofloxacin 500 mg tablet 500 mg PO DAILY #14 tabs 09/11/24 09/26/24 Rx omeprazole 40 mg capsule,delayed 40 mg PO DAILY #90 caps 10/06/24 10/12/24 Rx release Allergies Allergy/AdvReac Type Severity Reaction Status Date / Time venom-wasp Allergy Severe Swelling Verified 10/12/24 10:53 Sulfa (Sulfonamide Allergy Mild Rash Verified 10/12/24 10:53 Antibiotics) Vital Signs Vital Signs - 24 hr 10/12/24 10:30 10/12/24 12:30 10/12/24 12:45 Temperature 98 F 98.0 F Pulse Rate 65 78 60 Respiratory Rate 14 16 16 Blood Pressure 142/63 H 129/79 129/90 Pulse Oximetry 94 100 100 Oxygen Delivery Room Air Room Air Room Air Exam Const: General: no acute distress and alert Orientation/consciousness: patient oriented x3 HENMT: Head: normocephalic and atraumatic Ears: hearing grossly normal bilaterally Face/Nose/Sinus: Normal nares present Mouth: Yes Normal oral and palatal mucosa present Eyes: Periorbital: periorbital findings normal Sclera: sclerae normal EOM: EOMs intact bilaterally Neck: Neck: normal visual inspection, no lymphadenopathy and trachea midline Chest: Chest palpation & inspection: normal inspection of the chest Resp: Effort & Inspection: normal respiratory effort Auscultation: clear to auscultation bilaterally Cardio: Jugular venous distension: no JVD Rate: regular rate Rhythm: regular rhythm Heart sounds: S1 normal heart sound present and S2 normal heart sound present Peripheral pulses: Peripheral pulses 2+ throughout GI: Inspection: normal to inspection and other (Pigtail drain in place with slight bloody output) GI Palp: Yes Soft to palpation, No Tenderness to palpation present (GI), No Guarding due to palpation present (GI) and No Rebound tenderness present Percussion: Yes normal to percussion Auscultation: normal bowel sounds : General: Yes no CVA tenderness Back/Spine/Pelvis: Back: no CVA tenderness Neuro: General: patient oriented x3, no focal motor deficits and CN's II-XI intact bilaterally Cognition (Neuro): normal cognition Speech: normal speech Motor exam (neuro): 5/5 motor strength present throughout Extrem: General: capillary refill normal and no clubbing, cyanosis or edema H&P: Results Labs Labs: Short CBC 10/12/24 Range/Units 10:13 Plt Count 251 (150-375) k/mm3 Assessment and Plan Assessment and plan (1) Abscess of sigmoid colon due to diverticulitis: Code(s): K57.20 - Diverticulitis of large intestine with perforation and abscess without bleeding Status: Chronic Assessment and Plan: Status post percutaneous drainage of abscess 10/12/2024. Will start IV Zosyn and await culture results. Patient will be admitted for further treatment. Will have palliative care physician evaluate patient and discuss options of fci facility placement at time of discharge. Will continue to follow along with labs and drain output. (2) Antiplatelet or antithrombotic long-term use: Code(s): Z79.02 - manager terminal (current) use of antithrombotics/antiplatelets Status: Acute Assessment and Plan: Eliquis on hold (3) Dementia: Qualifiers: Dementia type: unspecified type Dementia severity: unspecified severity Dementia behavioral or psychological symptom: unspecified whether behavioral, psychotic, or mood disturbance or anxiety Qualified Code(s): F03.90 - Unspecified dementia, unspecified severity, without behavioral disturbance, psychotic disturbance, mood disturbance, and anxiety Code(s): F03.90 - Unspecified dementia, unspecified severity, without behavioral disturbance, psychotic disturbance, mood disturbance, and anxiety Status: Chronic Assessment and Plan: Patient occasionally becomes disoriented and will be high risk for inadvertently pulling out drain. Might need fci placement for continued close monitoring and assistant controller with drain care. (4) Benign essential hypertension: Code(s): I10 - Essential (primary) hypertension Status: Acute
--- NOTE | 2024-10-12 13:30 | ADMGEN ---
This patient, Rodney Watson, was admitted to [address] [place] [address] Room 305-02. Patient/family oriented to hospital policies and general routines including ID bracelet, bed and alarms, visiting hours, pain management, procedures, bathroom and other care routines, personal items, smoking policy, room service/diet, and visiting hours. Information on how to activate the Rapid Response Team has been discussed. Patient/Family are encouraged to report perceived risks to care and to ask questions if they do not understand what they are told or what they should do.
[2024-10-12] MEDS: PIPERACILLN/TAZ 3.375GM/NS50ML 3.375 GM/50 ML BAG IVPB ×2 (15:12→21:31)
[2024-10-12] MEDS: Please enter patient height and weight for medication dosing 1 EACH XX (15:12)
--- OUTSIDE RECORDS SUMMARY | 2024-10-12 16:10 | XMS_ITS | Encounter Summary ---
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
--- OUTSIDE RECORDS SUMMARY | 2024-10-12 16:10 | XMS_ITS | Encounter Summary ---
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
--- OUTSIDE RECORDS SUMMARY | 2024-10-12 16:10 | XMS_ITS | Encounter Summary ---
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
--- OUTSIDE RECORDS SUMMARY | 2024-10-12 16:10 | XMS_ITS | Encounter Summary ---
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
--- OUTSIDE RECORDS SUMMARY | 2024-10-12 16:10 | XMS_ITS | Encounter Summary ---
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
--- OUTSIDE RECORDS SUMMARY | 2024-10-12 16:10 | XMS_ITS | Referral Summary ---
Author Organization [facility] Address [address] [place] [address] Phone Care Team Providers Care Boiler Testing Technician Name Role Phone Gilbert Anderson MD Unavailable [phone] Mandeep Christine DO Primary Care Provider [phone] Encounters Date Type Department Care Team Description 09/18/2024 Telephone [facility] [facility] 12th [place] [address] [place] [address] Isabella Reddy MD 09/18/2024 Orders Only [facility] 12th [place] [address] [place] [address] Isabella Reddy MD 09/18/2024 Results Follow-Up [facility] Medicine [address] [facility] 12[address] [place] [address] [place] [address] Isabella Reddy MD 09/15/2024 Telephone [facility] [address] [facility] 12th [place] [address] [place] [address] Isabella Reddy MD [facility] 09/14/2024 8:55 PM CDT Lab [facility] [address] [place] [address] Screening for hyperlipidemia; Screening for diabetes mellitus; Vitamin D deficiency; Screening for viral disease; Weakness; Iron deficiency anemia secondary to inadequate dietary iron intake; Screening for thyroid disorder 09/14/2024 Telephone [facility] [address] Medical Office Building 2 [place] [address] Tianna Prakash RN 09/14/2024 4:00 PM CDT Office Visit [facility] [address] [facility] 12th [place] [address] [place] [address] Isabella Reddy MD Iron deficiency anemia secondary to inadequate dietary iron intake (Primary Dx); Vitamin D deficiency; Screening for diabetes mellitus; Screening for hyperlipidemia; Screening for thyroid disorder; Weakness; Screening for viral disease; Localized swelling, mass, or lump of lower extremity, bilateral; Bilateral leg edema; Abscess of abdominal cavity (HCC) 08/27/2024 Orders Only [facility] Scanning, Provider 07/25/2024 Documentation [facility] [address] [facility] First Floor [address] [place] [address] Halina Fontenot, TAPING FOREMAN from Last 3 Months Allergies Active Allergy [...] collected on 02/25/23 consistent with AD - [id number]/[id number]: 0.060 (H), Ab42 573 (L), t-tau 350 (H), p-tau 34.6 (H) -Diagnosis: AD -Namenda/memantine 10 mg BID, sertraline/Zoloft 100 mg, did not want to pursue anti amyloid therapy -discontinued donepezil/Aricept d/t GI upset, diverticultis, wt loss Assessment & Plan (05/25/2024 10:54 AM ENGINEER BOOSTER AND EXHAUSTER): Stop donepezil/Aricept due to wt loss, diverticulitis, low appetite Continue Namenda/memantine 10 mg BID Physical therapy and occupational therapy at home Referred to Geriatrics for primary care ( request) Assessment & Plan (04/03/2024 9:07 AM CDT): -Onset: 2019 -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, moderate WMD -Biomarkers: CSF ADEVL collected on 02/25/23 consistent with AD - toia697/abeta42: 0.060 (H), Ab42 573 (L), t-tau 350 (H), p-tau 34.6 (H) -Diagnosis: AD -Relevant medications: donepezil/Aricept 5 mg (GI upset with higher dose), Namenda/memantine 10 mg BID, sertraline/Zoloft 100 mg, did not want to pursue anti amyloid therapy PLAN: Hide dino dias Consider increasing sertraline/Zoloft moving forward Increase physical activity, two community centers in [place] 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, counseling for Termite Exterminator Helper [facility] Please send referral to [...] on file Legal Sex Male 9:32 PM ENGINEER BOOSTER AND EXHAUSTER Gender Identity Male 03/31/2023 8:02 AM CDT Sexual Orientation Straight 03/31/2023 8: 02 AM CDT Last Filed Vital Signs Vital Sign Reading Time Taken Comments Blood Pressure 145/79 09/14/2024 3:39 PM CDT Pulse 69 09/14/2024 3:39 PM CDT Temperature 36.8 C (98.3 F) 09/14/2024 3:39 PM CDT Respiratory Rate 16 08/04/2019 12:00 PM ENGINEER BOOSTER AND EXHAUSTER Oxygen Saturation 99% 09/14/2024 3:39 PM CDT [...] * eGFR (09/14/2024 5:50 PM CDT) Pathologist [facility] eGFR 79 >=60 mL/min/1. 73 m2 Comment: [...] Reddy MD LAB BLOOD ORDERABLES Final Result [facility] [address] [facility] Department [place] [address] * Differential, auto (09/14/2024 5:50 PM CDT) Pathologist [facility] Neutrophil abs 3.87 1.50 - 6.50 K/cumm Imm gran abs 0.01 0.00 - 0.10 K/cumm [facility] Lymphocyte abs 1.17 0.80 - 3.30 K/cumm [facility] Monocyte abs 0.68 0.20 - 0.80 K/cumm [facility] Eosinophil abs 0.11 0.00 - 0.50 K/cumm [facility] Basophil abs 0.03 0.00 - 0.10 K/cumm [facility] Neutrophil pct 65.9 % [facility] Comment: Interpretive Data Percent cell count reference ranges are not reported, since discordance with absolute values may lead to misinterpretation of CBC data. Current Interpretive Data was last revised on 2017. Imm gran pct 0.2 % [facility] Comment: Interpretive Data Percent cell count reference ranges are not reported, since discordance with absolute values may lead to misinterpretation of CBC data. Current Interpretive Data was last revised on 2017. Lymphocyte pct 19.9 % [facility] Comment: Interpretive Data Percent cell count reference ranges are not reported, since discordance with absolute values may lead to misinterpretation of CBC data. Current Interpretive Data was last revised on 2017. Monocyte pct 11.6 % [facility] Comment: Interpretive Data Percent cell count reference ranges are not reported, since discordance with absolute values may lead to misinterpretation of CBC data. Current Interpretive Data was last revised on 2017. Eosinophil pct 1.9 % [facility] Comment: Interpretive Data Percent cell count reference ranges are not reported, since discordance with absolute values may lead to misinterpretation of CBC data. Current Interpretive Data was last revised on 2017. Basophil pct 0.5 % [facility] Comment: Interpretive Data Percent cell count reference ranges are not reported, since discordance with absolute values may lead to misinterpretation of CBC data. Current Interpretive Data was last revised on 2017. Blood 09/14/2024 5:50 PM CDT 09/14/2024 6:10 PM CDT Isabella Reddy MD LAB BLOOD ORDERABLES Final Result [facility] [address] [facility] [place] [address] * (ABNORMAL) Thyroid Function [place] (09/14/2024 5:50 PM CDT) TSH 4.68(H) 0.30 - 4.20 mcIUnit/mL Blood 09/14/2024 5:50 PM CDT 09/14/2024 6:10 PM CDT Isabella Reddy MD LAB BLOOD ORDERABLES Final Result Performing Organization Address [facility]/ZIP Co de Phone Number [facility] [place] [employer] [place] [address] * (ABNORMAL) CBC with auto differential (09/14/2024 5:50 PM CDT) [facility] WBC 5.87 3.80 - 9.90 K/cumm Hgb 11.1(L) 13.0 - 17.5 g/dL [facility] Hct 35.0(L) 38.9 - 50.3 % [facility] Plt 297 150 - 400 K/cumm [facility] MPV 9.7 9.1 - 12.3 fL [facility] RBC 3.88(L) 4.30 - 5.80 M/cumm [facility] MCV 90.2 81.3 - 96.4 fL [facility] MCH 28.6 27.1 - 33.3 pg [facility] MCHC 31.7(L) 32.3 - 35.7 g/dL [facility] RDW CV 15.9(H) 11.1 - 14.9 % [facility] RDW SD 52.8(H) 35.7 - 48.1 fL [facility] NRBC abs 0.00 0.00 - 0.01 K/cumm [facility] Blood 09/14/2024 5:50 PM CDT 09/14/2024 6:10 PM CDT Result [facility] Isabella Reddy MD LAB BLOOD ORDERABLES Final Result [facility] [place] [place] [address] * (ABNORMAL) Hepatitis B core antibody, total Blood (09/14/2024 5:50 PM CDT) [facility] Hep B core IgG/IgM Reactive( A) Nonreactive Blood 09/14/2024 5:50 PM CDT 09/14/2024 6:10 PM CDT Isabella Reddy MD LAB MICROBIOLOGY - G ENERAL ORDERABLES Final Result Performing Organization Address City/[facility]/ZIP Co de Phone Number [facility] [place] [address] * (ABNORMAL) Vitamin D 25 hydroxy (09/14/2024 5:50 PM CDT) Pathologist [facility] Vitamin D 25-OH 23(L) 30 - 80 ng/mL Blood 09/14/2024 5:50 PM CDT 09/14/2024 6:10 PM CDT Isabella Reddy MD LAB BLOOD ORDERABLES Final Result Performing Organization Address [facility] de Phone Number [facility] [place] [address] * Hepatitis B surface antibody (immune status) Blood (09/14/2024 5:50 PM CDT) Pathologist [facility] HBsAb (immune status) Reactive Comment:This result is consi stent with immunity to Hepatitis B Virus when used in the setting of routine screening. Current interpretive data was last revised on 22 HBsAb (immune status) index 4,422.0 mIUnits/m L [facility] Blood 09/14/2024 5:50 PM CDT 09/14/2024 6:10 PM CDT Isabella Reddy MD LAB MICROBIOLOGY - G ENERAL ORDERABLES Final Result Performing Organization Address City[facility] Co de Phone Number [facility] Department [place] [address] * Hepatitis B Surface Antigen Blood (09/14/2024 5:50 PM CDT) [facility] HepBsAg Nonreactive Nonreactive Blood 09/14/2024 5:50 PM CDT 09/14/2024 6:10 PM CDT Result [facility] Isabella Reddy MD LAB MICROBIOLOGY - G ENERAL ORDERABLES Final Result Performing Organization Address City[facility] Co de Phone Number [facility] [place] [address] * T4, free (09/14/2024 5:50 PM CDT) [facility] Free T4 1.08 0.90 - 1.70 ng/dL Blood 09/14/2024 5:50 PM CDT 09/14/2024 6:15 PM CDT Narrative [facility] - 09/14/2024 7:25 PM CDT This test was reflexed from a TSH result. Isabella Reddy MD LAB BLOOD ORDERABLES Final Result Performing Organization Address [facility] de Phone Number [facility] [place] [address] * (ABNORMAL) Hemoglobin A1c (09/14/2024 5:50 PM CDT) [facility] Hgb A1C 5.8(H) 4.0 - 5.6 % Estimated Average Glucose 120 mg/dL [facility] Comment: The ADA recommends reporting an estimated Average Glucose (eAG) with all Hemoglobin A1c results using the equation derived from a study of 507 normal and diabetic adults. Minority populations were underrepresented and children were not included. (Diabetes Care 2020; 43(S1): S66-S76). The eAG is not equivalent to a fasting glucose. Blood 09/14/2024 5:50 PM CDT 09/14/2024 6:10 PM CDT Result [facility] Isabella Reddy MD LAB BLOOD ORDERABLES Final Result Performing Organization Address [facility] Co de Phone Number [facility] [place] [address] * Lipid panel (09/14/2024 5:50 PM CDT) [...] on 2018. Triglycerides 92 <=149 mg/dL [facility] Comment: Interpretive Data Ages < [...] on 2018. HDL 62 >=40 mg/dL [facility] Comment: Interpretive Data Ages < [...] 2018. LDL, calculated 87 <=129 mg/dL [facility] Comment: Interpretive Data Ages < [...] on 2024. Non-HDL Cholesterol 104 mg/dL [facility] Comment: Interpretive Data Ages < [...] last revised on 2018. [facility]ol/[facility] Blood 09/14/2024 5:50 PM CDT 09/14/2024 6:10 PM CDT us Isabella Reddy MD LAB BLOOD ORDERABLES Final Result [facility] [address] [facility] [place] [address] * (ABNORMAL) Comprehensive metabolic panel (09/14/2024 5:50 PM CDT) Sodium 143 135 - 145 mmol/L Potassium, pl 3.8 3.3 - 4.9 mmol/L [facility] Chloride 106 97 - 110 mmol/L [facility] CO2 33(H) 22 - 32 mmol/L [facility] Anion gap 4 2 - 15 mmol/L [facility] BUN 17 6 - 25 mg/dL [facility] Creatinine 0.96 0.80 - 1.30 mg/dL [facility] Glucose 110 70 - 199 mg/dL [facility] Comment: Interpretive Data Fasting glucose >/= [...] 2022. Calcium 8.9 8.5 - 10.3 mg/dL [facility] Bilirubin, total 0.3 0.1 - 1.2 mg/dL [facility] Protein, pl 7.0 6.5 - 8.5 g/dL [facility] Albumin 3.9 3.5 - 5.0 g/dL [facility] Alk phos 99 40 - 130 Units/L [facility] ALT 19 7 - 55 Units/L [facility] AST 25 10 - 50 Units/L [facility] Blood 09/14/2024 5:50 PM CDT 09/14/2024 6:10 PM CDT us Isabella Reddy MD LAB BLOOD ORDERABLES Final Result [facility] [address] [facility] [place] [address] * SCAN - LABS (08/27/2024) us Provider Scanning Final Result from Last 3 Months Insurance FOR LIFE MEDICARE FOR LIFE Care Teams Boiler Testing Technician Relationship Specialty Start Date End Date Mandeep Christine DO [address] [place] [address] PCP - General Internal Medicine 09/22/24 Gilbert Anderson MD Medical Oncologist/Inventory Analyst Hematology and Oncology 04/19/18
--- OUTSIDE RECORDS SUMMARY | 2024-10-12 16:10 | XMS_ITS | Encounter Summary ---
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
--- OUTSIDE RECORDS SUMMARY | 2024-10-12 16:10 | XMS_ITS | Encounter Summary ---
Author Organization [facility] Address [address] [place] [address] Phone Care Team Providers Care Circular Sawyer Helper Name Role Phone Gilbert Anderson MD Unavailable [phone] Mandeep Christine DO Primary Care Provider [phone] Encounter Details Date Type Department Care Team (Late st Contact Info) Description 09/18/2024 Results Follow-Up [facility] Geriatric Medicine [address] 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
--- OUTSIDE RECORDS SUMMARY | 2024-10-12 16:10 | XMS_ITS | Encounter Summary ---
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
--- OUTSIDE RECORDS SUMMARY | 2024-10-12 16:10 | XMS_ITS | Encounter Summary ---
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
--- OUTSIDE RECORDS SUMMARY | 2024-10-12 16:11 | XMS_ITS | Clinical Summary ---
Author Organization [facility] Address [address] [place] [address] Phone Care Team Providers Care Keel Press Operator Name Role Phone Gilbert Anderson MD Unavailable [phone] Mandeep Christine DO Primary Care Provider [phone] Allergies Active Allergy Reactions Criticality Noted Date [...] collected on 02/25/23 consistent with AD - mbvu282/abeta42: 0.060 (H), Ab42 573 (L), t-tau 350 (H), p-tau 34.6 (H) -Diagnosis: AD -Namenda/memantine 10 mg BID, sertraline/Zoloft 100 mg, did not want to pursue anti amyloid therapy -discontinued donepezil/Aricept d/t GI upset, diverticultis, wt loss Assessment & Plan (05/25/2024 10:54 AM CONTROL ENGINEER): Stop donepezil/Aricept due to wt loss, diverticulitis, low appetite Continue Namenda/memantine 10 mg BID Physical therapy and occupational therapy at home Referred to Geriatrics for primary care ( request) Assessment & Plan (04/03/2024 9:07 AM CDT): -Onset: 2019 -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, moderate WMD -Biomarkers: CSF ADEVL collected on 02/25/23 consistent with AD - [id number]/abeta42: 0.060 (H), Ab42 573 (L), t-tau 350 (H), p-tau 34.6 (H) -Diagnosis: AD -Relevant medications: donepezil/Aricept 5 mg (GI upset with higher dose), Namenda/memantine 10 mg BID, sertraline/Zoloft 100 mg, did not want to pursue anti amyloid therapy PLAN: Eliazar dias Consider increasing sertraline/Zoloft moving forward Increase physical activity, two community centers in [place] 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, counseling for [employer] Please send referral to 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 benefits Iron deficiency anemia due to chronic blood loss 08/02/2019 Iron deficiency anemia secelana joyy to inadequate dietary iron intake 04/19/2018 Myocardial ischemia 05/01/2015 Hiatal hernia 04/26/2015 Encounters Date Type Department Care Team Description 09/18/2024 Telephone [facility] Medicine [address] [place] [address] [place] [address] Isabella Reddy MD 09/18/2024 Orders Only [facility] Medicine [address] [place] [address] [place] [address] [place] [address] Isabella Reddy MD 09/18/2024 Results Follow-Up [facility] Medicine [address] [place] [address] [place] [address] Isabella Reddy MD 09/15/[address] [place] [address] [place] [address] Isabella Reddy MD [facility] facility 09/14/2024 8:55 PM CDT Lab [facility] [address] [place] [address] Screening for hyperlipidemia; Screening for diabetes mellitus; Vitamin D deficiency; Screening for viral disease; Weakness; Iron deficiency anemia secondary to inadequate dietary iron intake; Screening for thyroid disorder 09/14/2024 4:00 PM CDT Office Visit [facility] Medicine [address] [place] [address] [place] [address] [place] [address] Isabella Reddy MD Iron deficiency anemia secondary to inadequate dietary iron intake (Primary Dx); Vitamin D deficiency; Screening for diabetes mellitus; Screening for hyperlipidemia; Screening for thyroid disorder; Weakness; Screening for viral disease; Localized swelling, mass, or lump of lower extremity, bilateral; Bilateral leg edema; Abscess of abdominal cavity (HCC) 09/14/2024 Telephone [facility] Geriatric Medicine [address] [facility] [address] Medical Office Building [address] [place] [address] Tianna Prakash RN 08/27/2024 Orders Only [facility] Scanning, Provider 07/25/2024 Documentation [facility] [facility] First Floor [address] [place] [address] Halina Fontenot, BILL from Last [...] Micrographic Technique) - (Added by TW Conv) [place] TRURL ELECTROSURG RESCJ PROSTATE BLEED COMPLETE Transurethral Resection Of Prostate (TURP) - (Added by TW Conv) [place] UNLISTED PROCEDURE VASCUL AR INJECTION Arterial Catheterization - -cardiac cath in 2007 (Added by TW Conv) [place] COLONOSCOPY FLX DX W/RALEIGH J SPEC WHEN PFRMD Colonoscopy (Fiberoptic) - (Added by TW Conv) [place] ESOPHAGOGASTRODUODENOSCOP Y TRANSORAL DIAGNOSTIC Diagnostic Esophagogastroduodenoscopy - [...] on file Legal Sex Male 9:32 PM CONTROL ENGINEER Gender Identity Male 03/31/2023 8:02 AM CDT Sexual Orientation Straight 03/31/2023 8: 02 AM CDT Obstetrics History Last Filed Vital Signs Vital Sign Reading Time Taken Comments Blood Pressure 145/79 09/14/2024 3:39 PM CDT Pulse 69 09/14/2024 3:39 PM CDT Temperature 36.8 C (98.3 F) 09/14/2024 3:39 PM CDT Respiratory Rate 16 08/04/2019 12:00 PM CONTROL ENGINEER Oxygen Saturation 99% 09/14/2024 3:39 PM CDT [...] * eGFR (09/14/2024 5:50 PM CDT) Pathologist [facility] eGFR 79 >=60 mL/min/1. 73 m2 [...] Reddy MD LAB BLOOD ORDERABLES Final Result [facility] Department [place] [address] * Differential, auto (09/14/2024 5:50 PM CDT) Pathologist [facility] Neutrophil abs 3.87 1.50 - 6.50 K/cumm Imm gran abs 0.01 0.00 - 0.10 K/cumm [facility] Lymphocyte abs 1.17 0.80 - 3.30 K/cumm [facility] Monocyte abs 0.68 0.20 - 0.80 K/cumm [facility] Eosinophil abs 0.11 0.00 - 0.50 K/cumm [facility] Basophil abs 0.03 0.00 - 0.10 K/cumm [facility] Neutrophil pct 65.9 % [facility] Comment: Interpretive Data Percent cell count reference ranges are not reported, since discordance with absolute values may lead to misinterpretation of CBC data. Current Interpretive Data was last revised on 2017. Imm gran pct 0.2 % [facility] Comment: Interpretive Data Percent cell count reference ranges are not reported, since discordance with absolute values may lead to misinterpretation of CBC data. Current Interpretive Data was last revised on 2017. Lymphocyte pct 19.9 % [facility] Comment: Interpretive Data Percent cell count reference ranges are not reported, since discordance with absolute values may lead to misinterpretation of CBC data. Current Interpretive Data was last revised on 2017. Monocyte pct 11.6 % [facility] Comment: Interpretive Data Percent cell count reference ranges are not reported, since discordance with absolute values may lead to misinterpretation of CBC data. Current Interpretive Data was last revised on 2017. Eosinophil pct 1.9 % [facility] Comment: Interpretive Data Percent cell count reference ranges are not reported, since discordance with absolute values may lead to misinterpretation of CBC data. Current Interpretive Data was last revised on 2017. Basophil pct 0.5 % [facility] Comment: Interpretive Data Percent cell count reference ranges are not reported, since discordance with absolute values may lead to misinterpretation of CBC data. Current Interpretive Data was last revised on 2017. Blood 09/14/2024 5:50 PM CDT 09/14/2024 6:10 PM CDT Isabella Reddy MD LAB BLOOD ORDERABLES Final Result [facility] Department [place] [address] * (ABNORMAL) Thyroid Function [place] (09/14/2024 5:50 PM CDT) TSH 4.68(H) 0.30 - 4.20 mcIUnit/mL Blood 09/14/2024 5:50 PM CDT 09/14/2024 6:10 PM CDT Isabella Reddy MD LAB BLOOD ORDERABLES Final Result [facility] Department [place] [address] * (ABNORMAL) CBC with auto differential (09/14/2024 5:50 PM CDT) [facility] WBC 5.87 3.80 - 9.90 K/cumm Hgb 11.1(L) 13.0 - 17.5 g/dL [facility] Hct 35.0(L) 38.9 - 50.3 % [facility] Plt 297 150 - 400 K/cumm [facility] MPV 9.7 9.1 - 12.3 fL [facility] RBC 3.88(L) 4.30 - 5.80 M/cumm [facility] MCV 90.2 81.3 - 96.4 fL [facility] MCH 28.6 27.1 - 33.3 pg [facility] MCHC 31.7(L) 32.3 - 35.7 g/dL [facility] RDW CV 15.9(H) 11.1 - 14.9 % [facility] RDW SD 52.8(H) 35.7 - 48.1 fL [facility] NRBC abs 0.00 0.00 - 0.01 K/cumm [facility] Blood 09/14/2024 5:50 PM CDT 09/14/2024 6:10 PM CDT Isabella Reddy MD LAB BLOOD ORDERABLES Final Result [facility] Department [place] [address] * (ABNORMAL) Hepatitis B core antibody, total Blood (09/14/2024 5:50 PM CDT) [facility] Hep B core IgG/IgM Reactive( A) Nonreactive Blood 09/14/2024 5:50 PM CDT 09/14/2024 6:10 PM CDT Isabella Reddy MD LAB MICROBIOLOGY - G ENERAL ORDERABLES Final Result Performing Organization Address City/[facility] Co de Phone Number [facility] Department [place] [address] * (ABNORMAL) Vitamin D 25 hydroxy (09/14/2024 5:50 PM CDT) [facility] Vitamin D 25-OH 23(L) 30 - 80 ng/mL Blood 09/14/2024 5:50 PM CDT 09/14/2024 6:10 PM CDT Isabella Reddy MD LAB BLOOD ORDERABLES Final Result Performing Organization Address [facility] de Phone Number [facility] [place] [address] * Hepatitis B surface antibody (immune status) Blood (09/14/2024 5:50 PM CDT) [facility] HBsAb (immune status) Reactive Comment:This result is consi stent with immunity to Hepatitis B Virus when used in the setting of routine screening. Current interpretive data was last revised on 22 HBsAb (immune status) index 4,422.0 mIUnits/m L [facility] Blood 09/14/2024 5:50 PM CDT 09/14/2024 6:10 PM CDT Isabella Reddy MD LAB MICROBIOLOGY - G ENERAL ORDERABLES Final Result Performing Organization Address [facility] [place] [address] * Hepatitis B Surface Antigen Blood (09/14/2024 5:50 PM CDT) HepBsAg Nonreactive Nonreactive Blood 09/14/2024 5:50 PM CDT 09/14/2024 6:10 PM CDT Result Choco Reddy MD LAB MICROBIOLOGY - G ENERAL ORDERABLES Final Result Performing Organization Address [facility] Co de Phone Number [facility] [place] [address] * T4, free (09/14/2024 5:50 PM CDT) [facility] Free T4 1.08 0.90 - 1.70 ng/dL Blood 09/14/2024 5:50 PM CDT 09/14/2024 6:15 PM CDT Narrative [facility] - 09/14/2024 7:25 PM CDT This test was reflexed from a TSH result. Result [facility] us Isabella Reddy MD LAB BLOOD ORDERABLES Final Result Performing Organization Address [facility] de Phone Number [facility] [place] [address] * (ABNORMAL) Hemoglobin A1c (09/14/2024 5:50 PM CDT) [facility] Hgb A1C 5.8(H) 4.0 - 5.6 % Estimated Average Glucose 120 mg/dL [facility] Comment: The ADA recommends reporting an estimated [...] BLOOD ORDERABLES Final Result Performing Organization Address [facility]/ZIP Co de Phone Number [facility] Department [place] [address] * Lipid panel (09/14/2024 5:50 PM CDT) [...] on 2018. Triglycerides 92 <=149 mg/dL [facility] Comment: Interpretive Data Ages < or = [...] revised on 2018. HDL 62 >=40 mg/dL [facility] Comment: Interpretive Data Ages < or = [...] 2018. LDL, calculated 87 <=129 mg/dL [facility] Comment: Interpretive Data Ages < or = [...] revised on 2024. Non-HDL Cholesterol 104 mg/dL [facility] Comment: Interpretive Data Ages < or = [...] last revised on 2018. Chol/HDL ratio 3 [facility] Blood 09/14/2024 5:50 PM CDT 09/14/2024 6:10 PM CDT us Isabella Reddy MD LAB BLOOD ORDERABLES Final Result [facility] Department [place] [address] * (ABNORMAL) Comprehensive metabolic panel (09/14/2024 5:50 PM CDT) Sodium 143 135 - 145 mmol/L Potassium, pl 3.8 3.3 - 4.9 mmol/L [facility] Chloride 106 97 - 110 mmol/L [facility] CO2 33(H) 22 - 32 mmol/L [facility] Anion gap 4 2 - 15 mmol/L [facility] BUN 17 6 - 25 mg/dL [facility] Creatinine 0.96 0.80 - 1.30 mg/dL [facility] Glucose 110 70 - 199 mg/dL [facility] Comment: Interpretive Data Fasting glucose >/= 126 [...] 2022. Calcium 8.9 8.5 - 10.3 mg/dL [facility] Bilirubin, total 0.3 0.1 - 1.2 mg/dL [facility] Protein, pl 7.0 6.5 - 8.5 g/dL [facility] Albumin 3.9 3.5 - 5.0 g/dL [facility] Alk phos 99 40 - 130 Units/L [facility] ALT 19 7 - 55 Units/L [facility] AST 25 10 - 50 Units/L [facility] Blood 09/14/2024 5:50 PM CDT 09/14/2024 6:10 PM CDT us Isabella Reddy MD LAB BLOOD ORDERABLES Final Result [facility] [place] [address] * SCAN - LABS (08/27/2024) us Provider Scanning Final Result from Last 3 Months Insurance [facility] [employer] MEDICARE [employer] Care Teams Keel Press Operator Relationship Specialty Start Date End Date Mandeep Christine DO [address] [place] [address] PCP - General Internal Medicine 09/22/24 Gilbert Anderson MD Medical Oncologist/Rn Surgical Hematology and Oncology 04/19/18
--- OUTSIDE RECORDS SUMMARY | 2024-10-12 16:11 | XMS_ITS | Encounter Summary ---
Author Organization [facility] Healthcare Address [address] [place] [address] Care Team Providers Care Histology Aide Name Role Phone Gilbert Anderson MD Unavailable [phone] Brock Ulrich MD Primary Care Provider [phone] Mandeep Christine DO Primary Care Provider [phone] Encounter Details Date Type Department Care Team (Late st Contact Info) Description 05/26/2024 Telephone [facility] Home Care Services [address] [place] [address] Erinn Bedolla RN Social History Tobacco Use Types Packs/Day Years Used Date Smoking Tobacco: Former Cigarettes Q uit: 1979 Smokeless Tobacco: Never Alcohol Use Standard Drinks/Week Comments Yes 1 (1 standard drink = 0.6 oz pur e alcohol) Sex and Gender Information Value Date Recorded Sex Assigned at Not on file Legal Sex Male 9:32 PM DUST MIXER Gender Identity Male 03/31/2023 8:02 AM CDT Sexual Orientation Straight 03/31/2023 8: 02 AM CDT documented as of this encounter Plan of Treatment Not on file documented as of this encounter Visit Diagnoses Not on filedocumented in this encounter Care Teams Histology Aide Relationship Specialty Start Date End Date Brock Ulrich MD PCP - General Family Practice 12/18/22 06/22/24 Mandeep Christine DO [address] [place] [address] PCP - General Internal Medicine 09/22/24 Gilbert Anderson MD Medical Oncologist/Heating And Cooling Systems Engineer Hematology and Oncology 04/19/18 documented as of this encounter
--- OUTSIDE RECORDS SUMMARY | 2024-10-12 16:11 | XMS_ITS | Encounter Summary ---
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
[2024-10-12 16:22] LABS: Estimated CRCL calculation 58 ml/min; Estimated Glomerular Filt Rate > 60
[2024-10-12] MEDS: FERROUS SULFATE 325 MG TABLET DR PO (17:08)
[2024-10-12] MEDS: LACTATED RINGERS 1,000 ML 100 ML IV CONT (17:08)
--- OUTSIDE RECORDS SUMMARY | 2024-10-12 17:15 | XMS_ITS | Encounter Summary ---
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
--- OUTSIDE RECORDS SUMMARY | 2024-10-12 17:15 | XMS_ITS | Encounter Summary ---
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
--- OUTSIDE RECORDS SUMMARY | 2024-10-12 17:15 | XMS_ITS | Encounter Summary ---
Author Organization [facility] Address [address] [place] [address] Phone Care Team Providers Care Ultrasound Specialist Name Role Phone Gilbert Anderson MD Unavailable [phone] Paul Berkowitz DO Primary Care Provider [phone] Brock Ulrich MD Primary Care Provider [phone] Mandeep Christine DO Primary Care Provider [phone] Encounter Details Date Type Department Care Team [...] file Legal Sex Male 9:32 PM DIRECTOR ORACLE Gender Identity Male 03/31/2023 8:02 AM CDT [...] on filedocumented in this encounter Care Teams Ultrasound Specialist Relationship Specialty Start Date End Date Paul Berkowitz DO PCP - General Internal Medicine 08/01/19 12/17/22 Brock Ulrich MD PCP - General Family Practice 12/18/22 06/22/24 Mandeep Christine DO [address] [place] [address] PCP - General Internal Medicine 09/22/24 Gilbert Anderson MD Medical Oncologist/Gas Welder Hematology and Oncology 04/19/18 documented as of this encounter
--- OUTSIDE RECORDS SUMMARY | 2024-10-12 17:16 | XMS_ITS | Clinical Summary ---
Author Organization [facility] Address [address] [place] [address] Phone Care Team Providers Care Nurse Esthetician Name Role Phone Gilbert Anderson MD Unavailable [phone] Mandeep Christine DO Primary Care Provider [phone] Allergies Active Allergy Reactions Criticality Noted Date [...] collected on 02/25/23 consistent with AD - twty165/abeta42: 0.060 (H), Ab42 573 (L), t-tau 350 (H), p-tau 34.6 (H) -Diagnosis: AD -Namenda/memantine 10 mg BID, sertraline/Zoloft 100 mg, did not want to pursue anti amyloid therapy -discontinued donepezil/Aricept d/t GI upset, diverticultis, wt loss Assessment & Plan (05/25/2024 10:54 AM SUPERVISOR BEAM DEPARTMENT): Stop donepezil/Aricept due to wt loss, diverticulitis, low appetite Continue Namenda/memantine 10 mg BID Physical therapy and occupational therapy at home Referred to Geriatrics for primary care ( request) Assessment & Plan (04/03/2024 9:07 AM CDT): -Onset: 2019 -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, moderate WMD -Biomarkers: CSF ADEVL collected on 02/25/23 consistent with AD - lnit473/abeta42: 0.060 (H), Ab42 573 (L), t-tau 350 (H), p-tau 34.6 (H) -Diagnosis: AD -Relevant medications: donepezil/Aricept 5 mg (GI upset with higher dose), Namenda/memantine 10 mg BID, sertraline/Zoloft 100 mg, did not want to pursue anti amyloid therapy PLAN: Eliazar dias Consider increasing sertraline/Zoloft moving forward Increase physical activity, two community centers in [place] 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, 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 Please send referral to 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 benefits Iron deficiency anemia due to chronic blood loss 08/02/2019 Iron deficiency anemia secelana joyy to inadequate dietary iron intake 04/19/2018 Myocardial ischemia 05/01/2015 Hiatal hernia 04/26/2015 Encounters Date Type Department Care Team Description 09/18/2024 Telephone [facility] Medicine [address] [place] [address] [place] [address] [place] [address] Isabella Reddy MD 09/18/2024 Orders Only [facility] Medicine [address] [place] [address] [place] [address] [place] [address] Isabella Reddy MD 09/18/2024 Results Follow-Up [facility] Medicine [address] [place] [address] [place] [address] [place] [address] Isabella Reddy MD 09/15/[address] [place] [address] [place] [address] Isabella Reddy MD [facility] 09/14/2024 8:55 PM CDT Lab [facility] [address] [place] [address] Screening for hyperlipidemia; Screening for diabetes mellitus; Vitamin D deficiency; Screening for viral disease; Weakness; Iron deficiency anemia secondary to inadequate dietary iron intake; Screening for thyroid disorder 09/14/2024 4:00 PM CDT Office Visit [facility] Medicine [address] [place] [address] [place] [address] [place] [address] Isabella Reddy MD Iron deficiency anemia secondary to inadequate dietary iron intake (Primary Dx); Vitamin D deficiency; Screening for diabetes mellitus; Screening for hyperlipidemia; Screening for thyroid disorder; Weakness; Screening for viral disease; Localized swelling, mass, or lump of lower extremity, bilateral; Bilateral leg edema; Abscess of abdominal cavity (HCC) 09/14/2024 Telephone [facility] Geriatric Medicine [address] Medical [address] [place] [address] Tianna Prakash RN 08/27/2024 Orders Only [facility] Scanning, Provider 07/25/2024 Documentation [facility] [facility] First Floor [address] [place] [address] Halina Fontenot, BILL from Last [...] file Legal Sex Male 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 73 m2 Comment: [...] Reddy MD LAB BLOOD ORDERABLES Final Result [facility] Department [place] [address] * Differential, auto (09/14/2024 5:50 PM CDT) Pathologist [facility] [place] Neutrophil abs 3.87 1.50 - 6.50 K/cumm Imm gran abs 0.01 0.00 - 0.10 K/cumm [facility] Lymphocyte abs 1.17 0.80 - 3.30 K/cumm [facility] Monocyte abs 0.68 0.20 - 0.80 K/cumm [facility] Eosinophil abs 0.11 0.00 - 0.50 K/cumm [facility] Basophil abs 0.03 0.00 - 0.10 K/cumm [facility] Neutrophil pct 65.9 % [facility] Comment: Interpretive Data Percent cell count reference ranges are not reported, since discordance with absolute values may lead to misinterpretation of CBC data. Current Interpretive Data was last revised on 2017. Imm gran pct 0.2 % [facility] Comment: Interpretive Data Percent cell count reference ranges are not reported, since discordance with absolute values may lead to misinterpretation of CBC data. Current Interpretive Data was last revised on 2017. Lymphocyte pct 19.9 % [facility] Comment: Interpretive Data Percent cell count reference ranges are not reported, since discordance with absolute values may lead to misinterpretation of CBC data. Current Interpretive Data was last revised on 2017. Monocyte pct 11.6 % [facility] Comment: Interpretive Data Percent cell count reference ranges are not reported, since discordance with absolute values may lead to misinterpretation of CBC data. Current Interpretive Data was last revised on 2017. Eosinophil pct 1.9 % [facility] Comment: Interpretive Data Percent cell count reference ranges are not reported, since discordance with absolute values may lead to misinterpretation of CBC data. Current Interpretive Data was last revised on 2017. Basophil pct 0.5 % [facility] Comment: Interpretive Data Percent cell count reference ranges are not reported, since discordance with absolute values may lead to misinterpretation of CBC data. Current Interpretive Data was last revised on 2017. Blood 09/14/2024 5:50 PM CDT 09/14/2024 6:10 PM CDT Isabella Reddy MD LAB BLOOD ORDERABLES Final Result [facility] Department [place] [address] * (ABNORMAL) Thyroid Function [place] (09/14/2024 5:50 PM CDT) TSH 4.68(H) 0.30 - 4.20 mcIUnit/mL Blood 09/14/2024 5:50 PM CDT 09/14/2024 6:10 PM CDT Isabella Reddy MD LAB BLOOD ORDERABLES Final Result [facility] Department [place] [address] * (ABNORMAL) CBC with auto differential (09/14/2024 5:50 PM CDT) [facility] WBC 5.87 3.80 - 9.90 K/cumm Hgb 11.1(L) 13.0 - 17.5 g/dL [facility] Hct 35.0(L) 38.9 - 50.3 % [facility] Plt 297 150 - 400 K/cumm [facility] MPV 9.7 9.1 - 12.3 fL [facility] RBC 3.88(L) 4.30 - 5.80 M/cumm [facility] MCV 90.2 81.3 - 96.4 fL [facility] MCH 28.6 27.1 - 33.3 pg [facility] MCHC 31.7(L) 32.3 - 35.7 g/dL [facility] RDW CV 15.9(H) 11.1 - 14.9 % [facility] RDW SD 52.8(H) 35.7 - 48.1 fL [facility] NRBC abs 0.00 0.00 - 0.01 K/cumm [facility] Blood 09/14/2024 5:50 PM CDT 09/14/2024 6:10 PM CDT Isabella Reddy MD LAB BLOOD ORDERABLES Final Result [facility] Department [place] [address] * (ABNORMAL) Hepatitis B core antibody, total Blood (09/14/2024 5:50 PM CDT) [facility] Hep B core IgG/IgM Reactive( A) Nonreactive Blood 09/14/2024 5:50 PM CDT 09/14/2024 6:10 PM CDT Isabella Reddy MD LAB MICROBIOLOGY - G ENERAL ORDERABLES Final Result Performing Organization Address City/[facility] Co de Phone Number [facility] Department [place] [address] * (ABNORMAL) Vitamin D 25 hydroxy (09/14/2024 5:50 PM CDT) [facility] Vitamin D 25-OH 23(L) 30 - 80 ng/mL Blood 09/14/2024 5:50 PM CDT 09/14/2024 6:10 PM CDT Isabella Reddy MD LAB BLOOD ORDERABLES Final Result Performing Organization Address [facility] de Phone Number [facility] [place] [address] * Hepatitis B surface antibody (immune status) Blood (09/14/2024 5:50 PM CDT) [facility] HBsAb (immune status) Reactive Comment:This result is consi stent with immunity to Hepatitis B Virus when used in the setting of routine screening. Current interpretive data was last revised on 22 HBsAb (immune status) index 4,422.0 mIUnits/m L [facility] Blood 09/14/2024 5:50 PM CDT 09/14/2024 6:10 PM CDT Isabella Reddy MD LAB MICROBIOLOGY - G ENERAL ORDERABLES Final Result Performing Organization Address [facility] [place] [address] * Hepatitis B Surface Antigen Blood (09/14/2024 5:50 PM CDT) HepBsAg Nonreactive Nonreactive Blood 09/14/2024 5:50 PM CDT 09/14/2024 6:10 PM CDT Result Choco Reddy MD LAB MICROBIOLOGY - G ENERAL ORDERABLES Final Result Performing Organization Address [facility] Co de Phone Number [facility] [place] [address] * T4, free (09/14/2024 5:50 PM CDT) [facility] Free T4 1.08 0.90 - 1.70 ng/dL Blood 09/14/2024 5:50 PM CDT 09/14/2024 6:15 PM CDT Narrative [facility] - 09/14/2024 7:25 PM CDT This test was reflexed from a TSH result. Result [facility] us Isabella Reddy MD LAB BLOOD ORDERABLES Final Result Performing Organization Address [facility] de Phone Number [facility] [place] [address] * (ABNORMAL) Hemoglobin A1c (09/14/2024 5:50 PM CDT) [facility] Hgb A1C 5.8(H) 4.0 - 5.6 % Estimated Average Glucose 120 mg/dL [facility] Comment: The ADA recommends reporting [...] BLOOD ORDERABLES Final Result Performing Organization Address [facility]/ZIP Co de Phone Number [facility] Department [place] [address] * Lipid panel (09/14/2024 5:50 PM CDT) [...] on 2018. Triglycerides 92 <=149 mg/dL [facility] Comment: Interpretive Data Ages < or [...] revised on 2018. HDL 62 >=40 mg/dL [facility] Comment: Interpretive Data Ages < [...] 2018. LDL, calculated 87 <=129 mg/dL [facility] Comment: Interpretive Data Ages < or [...] revised on 2024. Non-HDL Cholesterol 104 mg/dL [facility] Comment: Interpretive Data Ages < [...] last revised on 2018. Chol/HDL ratio 3 [facility] Blood 09/14/2024 5:50 PM CDT 09/14/2024 6:10 PM CDT us Isabella Reddy MD LAB BLOOD ORDERABLES Final Result [facility] [place] [address] * (ABNORMAL) Comprehensive metabolic panel (09/14/2024 5:50 PM CDT) Sodium 143 135 - 145 mmol/L Potassium, pl 3.8 3.3 - 4.9 mmol/L [facility] Chloride 106 97 - 110 mmol/L [facility] CO2 33(H) 22 - 32 mmol/L [facility] Anion gap 4 2 - 15 mmol/L [facility] BUN 17 6 - 25 mg/dL [facility] Creatinine 0.96 0.80 - 1.30 mg/dL [facility] Glucose 110 70 - 199 mg/dL [facility] Comment: Interpretive Data Fasting glucose [...] 2022. Calcium 8.9 8.5 - 10.3 mg/dL [facility] Bilirubin, total 0.3 0.1 - 1.2 mg/dL [facility] Protein, pl 7.0 6.5 - 8.5 g/dL [facility] Albumin 3.9 3.5 - 5.0 g/dL [facility] Alk phos 99 40 - 130 Units/L [facility] ALT 19 7 - 55 Units/L [facility] AST 25 10 - 50 Units/L [facility] Blood 09/14/2024 5:50 PM CDT 09/14/2024 6:10 PM CDT us Isabella Reddy MD LAB BLOOD ORDERABLES Final Result [facility] [place] [address] * SCAN - LABS (08/27/2024) us Provider Scanning Final Result from Last 3 Months Insurance [facility] [employer] MEDICARE [employer] Care Teams Nurse Esthetician Relationship Specialty Start Date End Date Mandeep Christine DO [address] [place] [id number] PCP - General Internal Medicine 09/22/24 Gilbert Anderson MD Medical Oncologist/Dining Services Manager Hematology and Oncology 04/19/18
--- OUTSIDE RECORDS SUMMARY | 2024-10-12 17:16 | XMS_ITS | Encounter Summary ---
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
--- OUTSIDE RECORDS SUMMARY | 2024-10-12 17:16 | XMS_ITS | Encounter Summary ---
Author Organization [facility] Address [address] [place] [address] Phone Care Team Providers Care Kick Press Operator Name Role Phone Gilbert Anderson MD Unavailable [phone] Mandeep Christine DO Primary Care Provider [phone] Encounter Details Date Type Department Care Team (Late st Contact Info) Description 09/18/2024 Results Follow-Up [facility] Geriatric Medicine [address] [facility] Advanced Medicine 12th [place] [address] [place] [address] Isabella Reddy MD [address] [place] [address] Social History Tobacco Use Types Packs/Day Years Used Date Smoking Tobacco: Former Cigarettes Q uit: 1979 Smokeless Tobacco: Never Alcohol Use Standard Drinks/Week Comments Yes 1 (1 standard drink = 0.6 oz pur e alcohol) Sex and Gender Information Value Date Recorded Sex Assigned at Not on file 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
--- OUTSIDE RECORDS SUMMARY | 2024-10-12 17:16 | XMS_ITS | Referral Summary ---
Author Organization [facility] Address [address] [place] [address] Phone Care Team Providers Care Asset Management Coordinator Name Role Phone Gilbert Anderson MD Unavailable [phone] Mandeep Christine DO Primary Care Provider [phone] Encounters Date Type Department Care Team Description 09/18/2024 Telephone [facility] Geriatric [facility] 12th [place] [address] [place] [address] Isabella Reddy MD 09/18/2024 Orders Only [facility] Geriatric [facility] [address] [place] [address] [place] [address] Isabella Reddy MD 09/18/2024 Results Follow-Up [facility] Medicine [address]th [place] [address] [place] [address] Isabella Reddy MD 09/15/2024 Telephone [facility] Geriatric Medicine [address] 12th [place] [address] [place] [address] Isabella Reddy MD [facility] 09/14/2024 8:55 PM CDT Lab [facility] [address] [place] [address] Screening for hyperlipidemia; Screening for diabetes mellitus; Vitamin D deficiency; Screening for viral disease; Weakness; Iron deficiency anemia secondary to inadequate dietary iron intake; Screening for thyroid disorder 09/14/2024 Telephone [facility] Geriatric Medicine [address] Medical Office Building 2 [place] [address] Tianna Prakash RN 09/14/2024 4:00 PM CDT Office Visit [facility] Geriatric Medicine [address] 12th [place] [address] [place] [address] Isabella Reddy MD Iron deficiency anemia secondary to inadequate dietary iron intake (Primary Dx); Vitamin D deficiency; Screening for diabetes mellitus; Screening for hyperlipidemia; Screening for thyroid disorder; Weakness; Screening for viral disease; Localized swelling, mass, or lump of lower extremity, bilateral; Bilateral leg edema; Abscess of abdominal cavity (HCC) 08/27/2024 Orders Only [facility] Scanning, Provider 07/25/2024 Documentation [facility] [address] First Floor [address] [place] [address] Halina Fontenot, GYMNASTICS COACH from Last 3 Months Allergies Active Allergy [...] collected on 02/25/23 consistent with AD - qdwf851/abeta42: 0.060 (H), Ab42 573 (L), t-tau 350 (H), p-tau 34.6 (H) -Diagnosis: AD -Namenda/memantine 10 mg BID, sertraline/Zoloft 100 mg, did not want to pursue anti amyloid therapy -discontinued donepezil/Aricept d/t GI upset, diverticultis, wt loss Assessment & Plan (05/25/2024 10:54 AM SAFETY ANALYST): Stop donepezil/Aricept due to wt loss, diverticulitis, low appetite Continue Namenda/memantine 10 mg BID Physical therapy and occupational therapy at home Referred to Geriatrics for primary care ( request) Assessment & Plan (04/03/2024 9:07 AM CDT): -Onset: 2019 -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, moderate WMD -Biomarkers: CSF ADEVL collected on 02/25/23 consistent with AD - bpbg195/abeta42: 0.060 (H), Ab42 573 (L), t-tau 350 (H), p-tau 34.6 (H) -Diagnosis: AD -Relevant medications: donepezil/Aricept 5 mg (GI upset with higher dose), Namenda/memantine 10 mg BID, sertraline/Zoloft 100 mg, did not want to pursue anti amyloid therapy PLAN: Hide dino dias Consider increasing sertraline/Zoloft moving forward Increase physical activity, two community centers in [place] 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, 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 [employer] [facility] Please send referral to 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 [...] on file 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 Imm gran pct 0.2 % [facility] Comment: Interpretive Data Percent cell count reference ranges are not reported, since discordance with absolute values may lead to misinterpretation of CBC data. Current Interpretive Data was last revised on 2017. Lymphocyte pct 19.9 % [facility] Comment: Interpretive Data Percent cell count reference ranges are not reported, since discordance with absolute values may lead to misinterpretation of CBC data. Current Interpretive Data was last revised on 2017. Monocyte pct 11.6 % [facility] Comment: Interpretive Data Percent cell count reference ranges are not reported, since discordance with absolute values may lead to misinterpretation of CBC data. Current Interpretive Data was last revised on 2017. Eosinophil pct 1.9 % [facility] Comment: Interpretive Data Percent cell count reference [...] Final Result [facility] [address] [facility] Department [place] [address] * (ABNORMAL) Thyroid Function [place] (09/14/2024 5:50 PM CDT) TSH 4.68(H) 0.30 - 4.20 mcIUnit/mL Blood 09/14/2024 5:50 PM CDT 09/14/2024 6:10 PM CDT Isabella Reddy MD LAB BLOOD ORDERABLES Final Result Performing Organization Address [facility]/ZIP Co de Phone Number [facility] [place] [address] * (ABNORMAL) CBC with auto differential (09/14/2024 5:50 PM CDT) [facility] WBC 5.87 3.80 - 9.90 K/cumm Hgb [...] PM CDT 09/14/2024 6:10 PM CDT Result [facility] Isabella Reddy MD LAB BLOOD ORDERABLES Final Result [facility] [place] [address] * (ABNORMAL) Hepatitis B core antibody, total Blood (09/14/2024 5:50 PM CDT) [facility] Hep B core IgG/IgM Reactive( A) Nonreactive Blood 09/14/2024 5:50 PM CDT 09/14/2024 6:10 PM CDT Isabella Reddy MD LAB MICROBIOLOGY - G ENERAL ORDERABLES Final Result Performing Organization Address City/[facility]/ZIP Co de Phone Number [facility] Department [place] [address] * (ABNORMAL) Vitamin D 25 hydroxy (09/14/2024 5:50 PM CDT) Pathologist [facility] Vitamin D 25-OH 23(L) 30 - 80 ng/mL Blood 09/14/2024 5:50 PM CDT 09/14/2024 6:10 PM CDT Isabella Reddy MD LAB BLOOD ORDERABLES Final Result Performing Organization Address [facility] de Phone Number [facility] [place] [address] * Hepatitis B surface antibody (immune status) Blood (09/14/2024 5:50 PM CDT) Pathologist [facility] HBsAb (immune status) Reactive Comment:This result [...] ENERAL ORDERABLES Final Result Performing Organization Address City/[facility] Co de Phone Number [facility] Department [place] [address] * Hepatitis B Surface Antigen Blood (09/14/2024 5:50 PM CDT) [facility] HepBsAg Nonreactive Nonreactive Blood 09/14/2024 5:50 PM CDT 09/14/2024 6:10 PM CDT Result [facility] Isabella Reddy MD LAB MICROBIOLOGY - G ENERAL ORDERABLES Final Result Performing Organization Address City/[facility] Co de Phone Number [facility] [place] [address] * T4, free (09/14/2024 5:50 PM CDT) [facility] Free T4 1.08 0.90 - 1.70 ng/dL Blood 09/14/2024 5:50 PM CDT 09/14/2024 6:15 PM CDT Narrative [facility] - 09/14/2024 7:25 PM CDT This test was reflexed from a TSH result. Isabella Reddy MD LAB BLOOD ORDERABLES Final Result Performing Organization Address [facility] de Phone Number [facility] [place] [address] * (ABNORMAL) Hemoglobin A1c (09/14/2024 5:50 PM CDT) [facility] Hgb A1C 5.8(H) 4.0 - 5.6 % [...] PM CDT 09/14/2024 6:10 PM CDT Result [facility] Isabella Reddy MD LAB BLOOD ORDERABLES Final Result Performing Organization Address City/[facility] Co de Phone Number [facility] [place] [address] * Lipid panel (09/14/2024 5:50 PM CDT) [...] on 2018. Triglycerides 92 <=149 mg/dL [facility] Comment: Interpretive Data Ages < [...] on 2018. HDL 62 >=40 mg/dL [facility] Comment: Interpretive Data Ages < [...] 2018. LDL, calculated 87 <=129 mg/dL [facility] Comment: Interpretive Data Ages < [...] on 2024. Non-HDL Cholesterol 104 mg/dL [facility] Comment: Interpretive Data Ages < [...] last revised on 2018. Chol/HDL ratio [facility] Blood 09/14/2024 5:50 PM CDT 09/14/2024 6:10 PM CDT us Isabella Reddy MD LAB BLOOD ORDERABLES Final Result [facility] [address] [facility] [place] [address] * (ABNORMAL) Comprehensive metabolic panel (09/14/2024 5:50 [...] Final Result [facility] [address] [facility] [place] [address] * SCAN - LABS (08/27/2024) us Provider Scanning Final Result from Last 3 Months Insurance FOR LIFE MEDICARE FOR LIFE Care Teams Asset Management Coordinator Relationship Specialty Start Date End Date Mandeep Christine DO [address] [place] [address] PCP - General Internal Medicine 09/22/24 Gilbert Anderson MD Medical Oncologist/Cement Finisher Hematology and Oncology 04/19/18
--- OUTSIDE RECORDS SUMMARY | 2024-10-12 17:16 | XMS_ITS | Encounter Summary ---
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
--- OUTSIDE RECORDS SUMMARY | 2024-10-12 17:16 | XMS_ITS | Encounter Summary ---
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
--- OUTSIDE RECORDS SUMMARY | 2024-10-12 17:16 | XMS_ITS | Encounter Summary ---
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
--- OUTSIDE RECORDS SUMMARY | 2024-10-12 17:16 | XMS_ITS | Encounter Summary ---
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
--- OUTSIDE RECORDS SUMMARY | 2024-10-12 17:16 | XMS_ITS | Encounter Summary ---
Author Organization [facility] Address [address] [place] [address] Care Team Providers Care Electronic Lab Technician Name Role Phone Gilbert Anderson MD Unavailable [phone] Brock Ulrich MD Primary Care Provider [phone] Mandeep Christine DO Primary Care Provider [phone] Encounter Details Date Type Department Care Team (Late st Contact Info) Description 05/26/[address] 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 Gender Identity Male 03/31/2023 8:02 AM CDT Sexual Orientation Straight 03/31/2023 8: 02 AM CDT documented as of this encounter Plan of Treatment Not on file documented as of this encounter Visit Diagnoses Not on filedocumented in this encounter Care Teams Electronic Lab Technician Relationship Specialty Start Date End Date Brock Ulrich MD PCP - General Family Practice 12/18/22 06/22/24 Mandeep Christine DO [address] [place] [address] PCP - General Internal Medicine 09/22/24 Gilbert Anderson MD Medical Oncologist/Living Manager Hematology and Oncology 04/19/18 documented as of this encounter
--- OUTSIDE RECORDS SUMMARY | 2024-10-12 17:16 | XMS_ITS | Encounter Summary ---
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
[2024-10-12] MEDS: MEMANTINE 10 MG TABLET PO (20:09)
[2024-10-13 03:00] VITALS: BP 145/95; PULSE 71; RESP 18; TEMP 36.7; O2SAT 99
[2024-10-13] MEDS: PIPERACILLN/TAZ 3.375GM/NS50ML 3.375 GM/50 ML BAG IVPB ×4 (03:11→21:18)
[2024-10-13 04:46] VITALS: BP 145/74
[2024-10-13 06:20] LABS: Hematocrit 30.4 % (42.0-52.0); Hemoglobin 9.2 g/dL (14.0-18.0); Mean Corpuscular HGB Conc 30.3 g/dl (32-36); Mean Corpuscular Hemoglobin 29.2 pg (26-34); Mean Corpuscular Volume 96.5 fl (80-100); Mean Platelet Volume 9.9 fl (7.4-10.4); Platelet Count Result 225 k/mm3 (150-375); Red Blood Count 3.15 M/mm3 (4.6-6.20); White Blood Count 5.4 K/mm3 (4.5-10.0)
[2024-10-13 06:35] LABS: Anion Gap 4 mmol/L (4-12); Blood Urea Nitrogen 19 mg/dL (9-20); Calcium 8.4 mg/dL (8.4-10.2); Carbon Dioxide 29 mmol/L (22-30); Chloride 108 mmol/L (98-107); Estimated CRCL calculation 59 ml/min; Estimated Glomerular Filt Rate > 60; Glucose 99 mg/dL (65-110); Potassium 3.1 mmol/L (3.4-5.0); Sodium 141 mmol/L (137-145)
[2024-10-13 07:00] VITALS: BP 140/82; PULSE 73; RESP 18; TEMP 36.8; O2SAT 98
[2024-10-13] MEDS: ENOXAPARIN 40 MG/0.4 ML SYRINGE SUB-Q (09:36)
[2024-10-13] MEDS: BUMETANIDE 1 MG TABLET PO (09:37)
[2024-10-13] MEDS: SERTRALINE HCL 50 MG TABLET 150 MG PO (09:37)
[2024-10-13] MEDS: FERROUS SULFATE 325 MG TABLET DR PO ×2 (09:37→16:17)
[2024-10-13] MEDS: POTASSIUM CHLORIDE 20 MEQ ER TABLET 40 MEQ PO (09:37)
[2024-10-13] MEDS: busPIRone HCL 10 MG TABLET PO (09:37)
[2024-10-13] MEDS: MEMANTINE 10 MG TABLET PO ×2 (09:37→21:13)
[2024-10-13] MEDS: PANTOPRAZOLE 40 MG TABLET PO ×2 (09:38→21:13)
[2024-10-13 11:00] VITALS: BP 126/65; PULSE 78; RESP 18; O2SAT 99
[2024-10-13 11:32] VITALS: BMI 26.2
--- NOTE | 2024-10-13 13:07 | P.PNGS_ITS ---
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 Will resume in 1 or 2 days if drain output remains minimal. (3) Dementia: Qualifiers: Dementia type: unspecified type Dementia severity: unspecified severity Dementia behavioral or psychological symptom: unspecified whether behavioral, psychotic, or mood disturbance or anxiety Qualified Code(s): F03.90 - Unspecified dementia, unspecified severity, without behavioral disturbance, psychotic disturbance, mood disturbance, and anxiety Code(s): F03.90 - Unspecified dementia, unspecified severity, without behavioral disturbance, psychotic disturbance, mood disturbance, and anxiety Status: Chronic (4) Benign essential hypertension: Code(s): I10 - Essential (primary) hypertension Status: Acute (5) Hypokalemia: Code(s): E87.6 - Hypokalemia Status: Acute Assessment and Plan: * Potassium replaced this AM, continue to monitor. Subjective Subjective Date/Time Seen: 10/13/24 13:07 Interval history: No complaints. Tolerating diet. Requiring a sitter due to confusion and dementia. Exam GI: Inspection: non-distended and other (Pigtail drain with minimal bloody drainage.) GI Palp: Yes Soft to palpation, No Tenderness to palpation present (GI) and No Guarding due to palpation present (GI) Objective Data Vital Signs Vital Signs: Vital Signs - 24 hr 10/12/24 13:15 10/12/24 14:00 10/12/24 19:00 Temperature 97.7 F 98.1 F Pulse Rate 71 72 75 Respiratory Rate 16 16 16 Blood Pressure 140/80 133/69 130/71 Pulse Oximetry 100 100 100 Oxygen Delivery Room Air 10/12/24 20:00 10/12/24 23:00 10/13/24 03:00 Temperature 97.3 F L 98.1 F Pulse Rate 63 71 Respiratory Rate 14 18 Blood Pressure 129/72 145/95 H Pulse Oximetry 100 99 Oxygen Delivery Room Air 10/13/24 04:46 10/13/24 07:00 10/13/24 08:00 Temperature 98.2 F Pulse Rate 73 Respiratory Rate 18 Blood Pressure 145/74 H 140/82 Pulse Oximetry 98 Oxygen Delivery Room Air Intake/Output Intake/Output: Intake & Output 10/10/24 10/11/24 10/12/24 10/13/24 23:59 23:59 23:59 23:59 Intake Total 340 1820 Output Total 3 Balance 340 1817 Meds/Results Medications: Active Medications Generic Name Dose Route Start Last Admin Trade Name Freq PRN Reason Stop Dose Admin Acetaminophen 500 mg 10/12/24 13:15 Acetaminophen 500 Mg Tablet PO Q6H PRN Pain Rated 1-3 Bumetanide 1 mg 10/13/24 09:00 10/13/24 09:37 Bumetanide 1 Mg Tablet PO 1 mg DAILY NINFA Administration Buspirone HCl 10 mg 10/12/24 13:15 10/13/24 09:37 Buspirone Hcl 10 Mg Tablet PO 10 mg TID PRN Administration anxiety Enoxaparin Sodium 40 mg 10/13/24 09:00 10/13/24 09:36 Enoxaparin 40 Mg/0.4 Ml Syringe SUB-Q 40 mg DAILY NINFA Administration Ferrous Sulfate 325 mg 10/12/24 17:00 10/13/24 09:37 Ferrous Sulfate [address] PO 325 mg BID NINFA Administration Piperacillin/Tazobactam/Dextrose 3.375 gm in 50 mls @ 100 mls/hr 10/12/24 22:00 10/13/24 10:08 Zosyn 3.375 Gm/Ns 50 Ml IVPB Infused Q6H NINFA Infusion Ibuprofen 600 mg 10/12/24 13:15 Ibuprofen 600 Mg Tablet PO Q6H PRN Pain Rated 4-6 Memantine 10 mg 10/12/24 21:00 10/13/24 09:37 Memantine 10 Mg Tablet PO 10 mg Q12HR NINFA Administration Pantoprazole Sodium 40 mg 10/13/24 09:00 10/13/24 09:38 Pantoprazole 40 Mg Tablet PO 40 mg Q12HR NINFA Administration Sertraline HCl 150 mg 10/13/24 09:00 10/13/24 09:37 Sertraline Hcl 50 Mg Tablet PO 150 mg DAILY NINFA Administration Radiology Results: ITS Impressions Catheter Placement CT 10/12/24 16:02 IMPRESSION: Limited noncontrast enhanced CT examination of the abdomen and pelvis. Technically successful CT-guided abscess drainage and abscessogram with placement of a pigtail catheter. Labs Labs: Laboratory Results - last 24 hr 10/12/24 10/13/24 16:09 05:51 WBC 5.4 RBC 3.15 L Hgb 9.2 L Hct 30.4 L MCV 96.5 MCH 29.2 MCHC 30.3 L RDW 16.0 H Plt Count 225 MPV 9.9 Sodium 141 Potassium 3.1 L Chloride 108 H Carbon Dioxide 29 Anion Gap 4 BUN 19 Creatinine 0.85 0.83 Estim Creat Clear Calc 58 59 Estimated GFR > 60 > 60 Glucose 99 Calcium 8.4
[2024-10-13 15:00] VITALS: BP 130/71; PULSE 80; RESP 18; O2SAT 98
--- NOTE | 2024-10-13 16:36 | PC.NURSE ---
Shana noticed @ 1600 pt had removed drain while in the bathroom and hung it on the railing by the toilet. Covered puncture site with gauze and tegaderm. No active bleeding or trauma noted. Drain had no drainable output throughout shift today.
--- NOTE | 2024-10-13 19:14 | PC.NURSE ---
Dr. Corona informed that Pt. had pulled out his Perc drain from [facility] at approx. 1630 today. [facility] nurse, Jaqueline SANDERS, informed him that he had minimal output from drain on her shift and I informed him that I had approx. 3-5 ml out last night (10/12-10/13) on my shift. No new orders at this time.
[2024-10-13 21:47] VITALS: BP 126/66; PULSE 66; RESP 14; TEMP 36.4; O2SAT 99
[2024-10-14] MEDS: PIPERACILLN/TAZ 3.375GM/NS50ML 3.375 GM/50 ML BAG IVPB ×4 (03:50→22:37)
[2024-10-14 04:54] VITALS: BP 147/82; PULSE 90; RESP 14; TEMP 36.7; O2SAT 99
[2024-10-14 05:55] LABS: Hematocrit 32.2 % (42.0-52.0); Mean Corpuscular HGB Conc 31.1 g/dl (32-36); Mean Corpuscular Hemoglobin 29.7 pg (26-34); Mean Corpuscular Volume 95.5 fl (80-100); Platelet Count Result 253 k/mm3 (150-375); Red Blood Count 3.37 M/mm3 (4.6-6.20); Red Cell Distribution Width 15.9 % (11.5-14.5); White Blood Count 5.9 K/mm3 (4.5-10.0)
[2024-10-14 06:05] LABS: Anion Gap 5 mmol/L (4-12); Blood Urea Nitrogen 15 mg/dL (9-20); Calcium 8.4 mg/dL (8.4-10.2); Carbon Dioxide 29 mmol/L (22-30); Chloride 106 mmol/L (98-107); Estimated CRCL calculation 54 ml/min; Estimated Glomerular Filt Rate > 60; Glucose 94 mg/dL (65-110); Potassium 3.4 mmol/L (3.4-5.0); Sodium 140 mmol/L (137-145)
[2024-10-14] MEDS: FERROUS SULFATE 325 MG TABLET DR PO ×2 (08:45→17:11)
[2024-10-14] MEDS: BUMETANIDE 1 MG TABLET PO (08:45)
[2024-10-14] MEDS: PANTOPRAZOLE 40 MG TABLET PO ×2 (08:45→20:45)
[2024-10-14] MEDS: MEMANTINE 10 MG TABLET PO ×2 (08:46→20:45)
[2024-10-14] MEDS: SERTRALINE HCL 50 MG TABLET 150 MG PO (08:46)
[2024-10-14] MEDS: ENOXAPARIN 40 MG/0.4 ML SYRINGE SUB-Q (08:50)
--- NOTE | 2024-10-14 12:17 | WPDPN ---
Progress Note: A&P Assessment and Plan (1) Abscess of sigmoid colon due to diverticulitis: Code(s): K57.20 - Diverticulitis of large intestine with perforation and abscess without bleeding Status: Chronic Assessment and Plan: Sigmoid diverticulitis with pelvic abscess. He had drainage of the abscess a couple days ago percutaneously in Interventional Radiology. He pulled that out drain out yesterday. The plan was for him to go to [facility] facility with the drain in place. Will repeat a CT scan today the see if there is still any significant residual abscess that might require another drain placement. Abscess shows E coli and sensitivities are pending. Continue Zosyn for IV antibiotics for now. Subjective Date/time seen: 10/14/24 12:17 Interval history: Patient pulled out his pelvic drain yesterday afternoon. He has otherwise been stable. White blood count is normal. Culture results from the abscess drainage previously a couple days ago shows E coli. Sensitivities are still pending. Plan was for the patient to go to [facility] facility with the drain in place please now pulled the drain out. Will repeat CT scan and see if he still has a significant abscess that needs another drain. Exam GI: Other: Abdomen is soft and nondistended. Dressing in place with some small purulent drainage and the site of the previous drain site. No redness in the area. Minimal tenderness. Objective Data Vital Signs Vital Signs: Vital Signs - 24 hr 10/13/24 15:00 10/13/24 20:00 10/13/24 21:47 Temperature 36.4 C L Pulse Rate 80 66 Respiratory Rate 18 14 Blood Pressure 130/71 126/66 Pulse Oximetry 98 99 Oxygen Delivery Room Air 10/14/24 04:54 10/14/24 08:45 Temperature 36.7 C Pulse Rate 90 Respiratory Rate 14 Blood Pressure 147/82 H Pulse Oximetry 99 Oxygen Delivery Room Air Intake/Output Intake/Output: Intake & Output 10/11/24 10/12/24 10/13/24 10/14/24 23:59 23:59 23:59 23:59 Intake Total 340 2160 340 Output Total 3 Balance 340 2157 340 Meds/Results Medications: Active Medications Generic Name Dose Route Start Last Admin Trade Name Freq PRN Reason Stop Dose Admin Acetaminophen 500 mg 10/12/24 13:15 Acetaminophen 500 Mg Tablet PO Q6H PRN Pain Rated 1-3 Bumetanide 1 mg 05/02/25 09:00 10/14/24 08:45 Bumetanide 1 Mg Tablet PO 1 mg DAILY NINFA Administration Buspirone HCl 10 mg 10/12/24 13:15 10/13/24 09:37 Buspirone Hcl 10 Mg Tablet PO 10 mg TID PRN Administration anxiety Enoxaparin Sodium 40 mg 10/13/24 09:00 10/14/24 08:50 Enoxaparin 40 Mg/0.4 Ml Syringe SUB-Q 40 mg DAILY NINFA Administration Ferrous Sulfate 325 mg 10/12/24 17:00 10/14/24 08:45 Ferrous Sulfate [address] PO 325 mg BID NINFA Administration Piperacillin/Tazobactam/Dextrose 3.375 gm in 50 mls @ 100 mls/hr 10/12/24 22:00 10/14/24 10:43 Zosyn 3.375 Gm/Ns 50 Ml IVPB Infused Q6H NINFA Infusion Ibuprofen 600 mg 10/12/24 13:15 Ibuprofen 600 Mg Tablet PO Q6H PRN Pain Rated 4-6 Memantine 10 mg 10/12/24 21:00 10/14/24 08:46 Memantine 10 Mg Tablet PO 10 mg Q12HR NINFA Administration Pantoprazole Sodium 40 mg 10/13/24 09:00 10/14/24 08:45 Pantoprazole 40 Mg Tablet PO 40 mg Q12HR NINFA Administration Sertraline HCl 150 mg 10/13/24 09:00 10/14/24 08:46 Sertraline Hcl 50 Mg Tablet PO 150 mg DAILY NINFA Administration Radiology Results: ITS Impressions Catheter Placement CT 10/12/24 16:02 IMPRESSION: Limited noncontrast enhanced CT examination of the abdomen and pelvis. Technically successful CT-guided abscess drainage and abscessogram with placement of a pigtail catheter. Labs Labs: Laboratory Results - last 24 hr 10/14/24 05:27 WBC 5.9 RBC 3.37 L Hgb 10.0 L Hct 32.2 L MCV 95.5 MCH 29.7 MCHC 31.1 L RDW 15.9 H Plt Count 253 MPV 10.0 Sodium 140 Potassium 3.4 Chloride 106 Carbon Dioxide 29 Anion Gap 5 BUN 15 Creatinine 0.91 Estim Creat Clear Calc 54 Estimated GFR > 60 Glucose 94 Calcium 8.4 Magnesium 2.0
[2024-10-14 20:00] VITALS: PULSE 75; RESP 18; O2SAT 97
[2024-10-14] MEDS: ACETAMINOPHEN 500 MG TABLET PO (20:45)
[2024-10-14] MEDS: busPIRone HCL 10 MG TABLET PO (20:45)
[2024-10-14 21:13] VITALS: PULSE 67; RESP 20; O2SAT 99
[2024-10-14 22:00] VITALS: BP 137/61; PULSE 75; RESP 18; TEMP 36.4; O2SAT 97
[2024-10-15] MEDS: PIPERACILLN/TAZ 3.375GM/NS50ML 3.375 GM/50 ML BAG IVPB ×2 (04:25→09:25)
[2024-10-15 06:00] VITALS: BP 144/69; PULSE 70; RESP 18; TEMP 36.6; O2SAT 96
[2024-10-15 06:21] LABS: Hematocrit 34.5 % (42.0-52.0); Hemoglobin 10.7 g/dL (14.0-18.0); Mean Corpuscular Hemoglobin 29.4 pg (26-34); Mean Corpuscular Volume 94.8 fl (80-100); Mean Platelet Volume 9.9 fl (7.4-10.4); Platelet Count Result 273 k/mm3 (150-375); Red Blood Count 3.64 M/mm3 (4.6-6.20); Red Cell Distribution Width 15.6 % (11.5-14.5); White Blood Count 4.3 K/mm3 (4.5-10.0)
[2024-10-15 06:38] LABS: Anion Gap 6 mmol/L (4-12); Blood Urea Nitrogen 14 mg/dL (9-20); Calcium 8.4 mg/dL (8.4-10.2); Carbon Dioxide 30 mmol/L (22-30); Chloride 105 mmol/L (98-107); Estimated CRCL calculation 50 ml/min; Estimated Glomerular Filt Rate > 60; Glucose 94 mg/dL (65-110); Potassium 3.3 mmol/L (3.4-5.0); Sodium 141 mmol/L (137-145)
[2024-10-15] MEDS: ENOXAPARIN 40 MG/0.4 ML SYRINGE SUB-Q (09:19)
[2024-10-15] MEDS: MEMANTINE 10 MG TABLET PO (09:19)
[2024-10-15] MEDS: PANTOPRAZOLE 40 MG TABLET PO (09:19)
[2024-10-15] MEDS: SERTRALINE HCL 50 MG TABLET 150 MG PO (09:19)
[2024-10-15] MEDS: BUMETANIDE 1 MG TABLET PO (09:19)
[2024-10-15] MEDS: FERROUS SULFATE 325 MG TABLET DR PO (09:19)
--- NOTE | 2024-10-15 09:38 | WPDPN ---
Progress Note: A&P Assessment and Plan (1) Abdominal abscess: Status: Acute Assessment and Plan: Patient pulled out his drain. He has done well since he pulled the drain out. No fever and his white blood count is normal. CT scan yesterday showed no residual small abscess in the area extending to the abdominal wall. There is no redness in the area on the skin. I think we can just treat with oral antibiotics and can return to his assisted living facility. Since he no longer has a percutaneous drain in place then he will not need to go to residential facility. He can follow-up Dr. Jasmin cutler in the office later this week or next week. Subjective Date/time seen: 10/15/24 09:38 Interval history: Patient clinically stable. Has no complaints. Not complaining of any pain. Tolerating diet. No fever. Hemodynamics are normal. CT scan abdomen pelvis with contrast yesterday showed small anterior mid abdominal abscess just underneath the abdominal wall. This abscess previously had a drain in place until 36hours ago when the patient pulled out himself. He seems to be doing fine without the drain in place. Exam GI: Other: Abdomen is soft and nondistended. Lower anterior abdominal wall drain site clean and dry. Dressing in place. Objective Data Vital Signs Vital Signs: Vital Signs - 24 hr 10/14/24 20:00 10/14/24 21:13 10/14/24 22:00 Temperature 36.4 C Pulse Rate 75 67 75 Respiratory Rate 18 20 18 Blood Pressure 137/61 Pulse Oximetry 97 99 97 Oxygen Delivery Room Air Room Air Fraction of Inspired Oxygen 21 21 10/15/24 06:00 Temperature 36.6 C Pulse Rate 70 Respiratory Rate 18 Blood Pressure 144/69 H Pulse Oximetry 96 Oxygen Delivery Fraction of Inspired Oxygen Intake/Output Intake/Output: Intake & Output 10/12/24 10/13/24 10/14/24 10/15/24 23:59 23:59 23:59 23:59 Intake Total 340 2160 800 50 Output Total 3 Balance 340 2157 800 50 Meds/Results Medications: Active Medications Generic Name Dose Route Start Last Admin Trade Name Freq PRN Reason Stop Dose Admin Acetaminophen 500 mg 10/12/24 13:15 10/14/24 20:45 Acetaminophen 500 Mg Tablet PO 500 mg Q6H PRN Administration Pain Rated 1-3 Bumetanide 1 mg 10/13/24 09:00 10/15/24 09:19 Bumetanide 1 Mg Tablet PO 1 mg DAILY NINFA Administration Buspirone HCl 10 mg 10/12/24 13:15 10/14/24 20:45 Buspirone Hcl 10 Mg Tablet PO 10 mg TID PRN Administration anxiety Enoxaparin Sodium 40 mg 10/13/24 09:00 10/15/24 09:19 Enoxaparin 40 Mg/0.4 Ml Syringe SUB-Q 40 mg DAILY NINFA Administration Ferrous Sulfate 325 mg 10/12/24 17:00 10/15/24 09:19 Ferrous Sulfate [address] PO 325 mg BID NINFA Administration Piperacillin/Tazobactam/Dextrose 3.375 gm in 50 mls @ 100 mls/hr 10/12/24 22:00 10/15/24 09:25 Zosyn 3.375 Gm/Ns 50 Ml IVPB 100 mls/hr Q6H NINFA Administration Ibuprofen 600 mg 10/12/24 13:15 Ibuprofen 600 Mg Tablet PO Q6H PRN Pain Rated 4-6 Memantine 10 mg 10/12/24 21:00 10/15/24 09:19 Memantine 10 Mg Tablet PO 10 mg Q12HR NINFA Administration Pantoprazole Sodium 40 mg 10/13/24 09:00 10/15/24 09:19 Pantoprazole 40 Mg Tablet PO 40 mg Q12HR NINFA Administration Sertraline HCl 150 mg 10/13/24 09:00 10/15/24 09:19 Sertraline Hcl 50 Mg Tablet PO 150 mg DAILY NINFA Administration Radiology Results: ITS Impressions Catheter Placement CT 10/12/24 16:02 IMPRESSION: Limited noncontrast enhanced CT examination of the abdomen and pelvis. Technically successful CT-guided abscess drainage and abscessogram with placement of a pigtail catheter. Abdomen/Pelvis CT 10/14/24 14:31 IMPRESSION: Stable abdominopelvic and subcutaneous abscess Labs Labs: Laboratory Results - last 24 hr 10/15/24 05:40 WBC 4.3 L RBC 3.64 L Hgb 10.7 L Hct 34.5 L MCV 94.8 MCH 29.4 MCHC 31.0 L RDW 15.6 H Plt Count 273 MPV 9.9 Sodium 141 Potassium 3.3 L Chloride 105 Carbon Dioxide 30 Anion Gap 6 BUN 14 Creatinine 0.99 Estim Creat Clear Calc 50 Estimated GFR > 60 Glucose 94 Calcium 8.4
--- NOTE | 2024-10-15 09:52 | PM.DS ---
DS: Admitting Diagnosis Discharge Date October 15, 2024 Admitting Diagnosis Intra-abdominal abscess DS: Discharge Diagnosis Discharge Diagnosis (1) Abdominal abscess: Status: Acute DS: Summary Hospital Course Reason for hospitalization: Abdominal abscess and placement of IR drain Hospital Course: Patient is a 79-year-old gentleman who apparently had diverticulitis and developed abdominal abscess. He underwent placement of an intra-abdominal drain via Interventional Radiology. He was from a assisted living facility and they would not manage the drain and the patient cannot manage it on his own. He subsequent was admitted to the hospital and started on IV antibiotics in preparation for eventual discharge to care home facility. He was doing well with the drain in place on IV antibiotics. However he pulled the drain out. He had no bleeding from the drain site. The next day I obtained a CT scan abdomen pelvis showing only a small residual abscess underneath the anterior abdominal wall. He remained afebrile did well over the next 24hours. White blood cell count was still normal. Nothing was really draining of the drain site. It was set to be discharged back to his assisted living facility at the no longer needed care home facility placement as he no longer had a drain in place. He can resume of his previous home medications to include his apixaban. Was discharged with oral Augmentin for oral antibiotic therapy. He can follow-up Dr. Sanches in the office in a week. Status at Discharge Functional status at discharge: independent ambulation Time Spent with Patient Time attestation: Total time spent providing and/or coordinating discharge services: Time spent: Less than 30 minutes Exam GI: Other: Abdomen is soft and nondistended. Lower abdominal drain site without redness or any drainage. It is nearly closed. No tenderness to palpation. Abdominal exam is benign. DS: Data Data Completed and Pending Labs on day of discharge: Labs from last 24 hours 10/15/24 05:40 WBC 4.3 L RBC 3.64 L Hgb 10.7 L Hct 34.5 L MCV 94.8 MCH 29.4 MCHC 31.0 L RDW 15.6 H Plt Count 273 MPV 9.9 Sodium 141 Potassium 3.3 L Chloride 105 Carbon Dioxide 30 Anion Gap 6 BUN 14 Creatinine 0.99 Estim Creat Clear Calc 50 Estimated GFR > 60 Glucose 94 Calcium 8.4 Preliminary micro results at discharge 10/12/24 12:25 Anaerobic Culture - Preliminary Abdominal Fluid Aerobic Culture - Preliminary Staphylococcus aureus Escherichia Coli Imaging Radiologist's impression: CT Scan Report Signed Patient: Rodney Watson : 1945 MR#: [id number] Age: 79 Acct:[id number] Loc: [id number] ADM Date: 10/12/24Attending Dr: Segundo Sanches D.O. Ordering Physician: Eligio Corona MD Date of Service: 10/14/24 Procedure(s): CT abdomen pelvis w con Accession Number(s): [id number] cc: Nanci, Mandeep Conklin DO; Segundo Sanches DO; Eligio Corona MD~ EXAMINATION: CT abdomen pelvis w con DATE: 10/14/2024 13:28 INDICATION: Follow-up pelvic abscess, pt pulled out drain TECHNIQUE: Computed tomography (CT) of the abdomen and pelvis was performed with 100 mL Omnipaque-350 intravenous contrast. Automated exposure control and iterative reconstruction technique were employed. The dose-length product was 411.08 mGy-cm. COMPARISON: 10/02/2024. FINDINGS: Lower thorax: Coronary artery calcification. Mild bilateral dependent scar/atelectasis. Liver: Normal. Biliary/Gallbladder: Gallbladder is normal. No bile duct dilation. Pancreas: No mass or duct dilation. Spleen: Normal. Adrenals:No mass. Kidneys: No suspicious mass, obstructing stone, or hydronephrosis. Punctate bilateral nonobstructing calcifications. Simple left upper pole cyst. GI tract: Status post GE junction surgery, possible fundoplication. No small or large bowel dilation. Normal appendix. Mesentery/Peritoneum: Redemonstration of the gas and fluid collection in the lower anterior cavity, just deep to the anterior abdominal wall. Inflammatory stranding extends obliterates the fat plane with the adjacent sigmoid colon and also extends along the anterolateral surface of the bladder dome and to the right pelvic sidewall. Retroperitoneum: No mass. Atherosclerotic calcifications of intra-abdominal arterial vessels. 3.2 cm fusiform infrarenal abdominal aortic aneurysm. Pelvis: Moderately distended urinary bladder with small stones. Moderate prostatomegaly. Soft Tissues: Increasing subcutaneous gas in the left lower abdomen, extending to the skin surface, and probably associated with the peritoneal collection and/or skin incision, grossly unchanged in size. Small fat-containing umbilical hernia. Bones: No acute osseous finding. IMPRESSION: Stable abdominopelvic and subcutaneous abscess Reviewed, dictated and finalized at location K. Discharge Plan Discharge Attending physician on discharge: Segundo Sanches Discharging Clinician: Eligio Corona Anticipated Discharge Date/Time: 10/15/24 09:50 [facility] Activity: may shower Diet: heart healthy Wound Care Instructions: remove dressing to shower Discharge Instructions: Patient may discharge back to his assisted living facility today. May remove his dressing from his drain site tomorrow and then shower. Patient to follow-up see Dr. Sanches in 1 week. Call office to make appointment. Patient may resume all his home meds to include his oral blood thinners. Patient Instructions: Antibiotic Form, Apixaban (By mouth) Patient Language: Kiswahili Stand Alone Forms: General Discharge Information Follow-up/Referrals: Segundo Sanches, [Physician] - (Follow-up to see in the office in 1 week. Call the number for appointment.) Discharge Medications: New amoxicillin-pot clavulanate 875-125 mg tablet 1 tablet PO Q12H Qty: 15 1RF Continued levofloxacin 500 mg tablet 500 mg PO DAILY Qty: 14 0RF memantine 10 mg tablet 10 mg PO BID Qty: 180 1RF ferrous sulfate 325 mg (65 mg iron) tablet,delayed release (DR/EC) 325 mg PO BID Qty: 180 1RF Eliquis 5 mg tablet 5 mg PO BID Qty: 180 1RF bumetanide 1 mg tablet 1 mg PO DAILY Qty: 30 4RF buspirone 10 mg tablet 10 mg PO TID PRN (Reason: anxiety) Qty: 45 0RF sertraline 100 mg tablet 150 mg PO DAILY Qty: 135 1RF Patient Comments: QAM omeprazole 40 mg capsule,delayed release(DR/EC) 40 mg PO DAILY Qty: 90 1RF Date of admission: 10/12/24 13:15 Primary Care Provider: Nanci,Mandeep Conklin Admitting Provider: Seugndo Sanches Attending physician on admission: Segundo Sanches Condition: Stable
== END 2024-10-15 12:53 | DRG 391 ==
LOC: ANH3MEDSUR 15:39
PROVIDERS: Radiology Diagnostic Radiology; Admitting Provider Surgery; PCP Internal Medicine; Referring Provider Surgery; Visit Provider Surgery
PROC: 0W9H30Z Drainage of Retroperitoneum with Drainage Device, Percutaneous Approach (ICD-10-PCS; CPT 75989; principal; 2024-10-12 09:00)
DX: K57.20 Diverticulitis of large intestine with perforation and abscess without bleeding (principal); K65.1 Peritoneal abscess; B96.20 Unspecified Escherichia coli [E. coli] as the cause of diseases classified elsewhere; B95.62 Methicillin resistant Staphylococcus aureus infection as the cause of diseases classified elsewhere; D50.9 Iron deficiency anemia, unspecified; E87.6 Hypokalemia; F03.90 Unspecified dementia, unspecified severity, without behavioral disturbance, psychotic disturbance, mood disturbance, and anxiety; I11.0 Hypertensive heart disease with heart failure; I50.9 Heart failure, unspecified; K21.9 Gastro-esophageal reflux disease without esophagitis; Z79.01 Long term (current) use of anticoagulants; Z97.8 Presence of other specified devices; Z98.41 Cataract extraction status, right eye; Z98.42 Cataract extraction status, left eye; Z87.891 Personal history of nicotine dependence
CPT/HCPCS: 36415; 74177; 75989; 80048; 82565; 83735; 85027; 85049; 85610; 87070; 87075; 87181; 87186; 87205; A9270; C1729; C1769; J1650; J2543; J7120; Q9967

== ENCOUNTER 2024-11-10 13:16 | Emergency (ER) | payer MEDICARE, OTHER, SELFPAY ==
--- NOTE | ~2024-11-10 | CT_ITS ---
CT abdomen pelvis w con Ordering provider: Sydnie Franks PA-C History: 79 years Male with . intra-abdominal abscess . Comparison: October 14, 2024. Technique: CT abdomen and pelvis with IV and without oral contrast. Automated exposure control and it erative reconstruction technique were employed. The dose-length product was 399.09 mGy-cm. 100 mL Omn ipaque 350 was given IV. Findings: VISUALIZED LOWER CHEST: Normal. UPPER ABDOMINAL ORGANS: Liver: Normal. Gallbladder: Normal. Spleen: Normal. Stomach/duodenum: Postoperative changes in the area of the fundus of the stomach. Pancreas: Normal. Adrenals: Normal. Kidneys: Left kidney upper pole cyst measuring 5.1 x 5.6 cm is noted. Tiny cyst in the right kidney u pper pole. PELVIC ORGANS: The bladder is underfilled. BOWEL AND MESENTERY: Colon: Mild sigmoid diverticulosis without diverticulitis. Minimal fat stranding is seen in the anter ior pelvis seen around the sigmoid colon is noted likely postoperative. Follow-up advised. The air se en in the left subcutaneous tissue in the pelvis is unchanged. The air is seen in the pelvis anterior ly with minimal fluid is also minimally changed. Normal appendix. Small Bowel: Normal. No obstruction. Peritoneum/mesentery: No free air. Trace of fluid seen in the pelvis. No mesenteric lymphadenopathy. RETROPERITONEUM: Mild atheromatous disease of the abdominal aorta. The distal aorta measures 3.1 x 2 .6 cm. No retroperitoneal lymphadenopathy. MUSCULOSKELETAL: Superficial soft tissues: Bilateral fat containing inguinal hernias otherwise, The superficial soft t issues are normal. Bones: Age appropriate degenerative changes of the spine. Bilateral sacroiliitis. Bilateral hip osteo arthritic changes. IMPRESSION: 1. No significant change from previous examination. Reviewed, dictated and finalized at location A.
--- OUTSIDE RECORDS SUMMARY | 2024-11-10 13:19 | XMS_ITS | Encounter Summary ---
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
--- OUTSIDE RECORDS SUMMARY | 2024-11-10 13:19 | XMS_ITS | Encounter Summary ---
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
--- OUTSIDE RECORDS SUMMARY | 2024-11-10 13:19 | XMS_ITS | Encounter Summary ---
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
--- OUTSIDE RECORDS SUMMARY | 2024-11-10 13:19 | XMS_ITS | Encounter Summary ---
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
--- OUTSIDE RECORDS SUMMARY | 2024-11-10 13:19 | XMS_ITS | Encounter Summary ---
Author Organization 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
--- OUTSIDE RECORDS SUMMARY | 2024-11-10 13:19 | XMS_ITS | Encounter Summary ---
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
--- OUTSIDE RECORDS SUMMARY | 2024-11-10 13:19 | XMS_ITS | Encounter Summary ---
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
--- OUTSIDE RECORDS SUMMARY | 2024-11-10 13:19 | XMS_ITS | Encounter Summary ---
Author Organization [facility] Address [address] [place] [address] Phone Care Team Providers Care Health Occupations Teacher Name Role Phone Gilbert Anderson MD Unavailable [phone] Mandeep Christine DO Primary Care Provider [phone] Encounter Details Date Type Department Care Team (Late st Contact Info) Description 09/18/2024 Results Follow-Up [facility] Geriatric Medicine [address] [facility] Advanced Medicine 12th [place] [address] [place] [address] Isabella Reddy MD [address] [place] [address] Lipid panel, Hemoglobin A1c, Vitamin D 25 hydroxy, Additional followed-up results: 9 Social History Tobacco Use Types Packs/Day Years Used Date Smoking Tobacco: Former Cigarettes Q uit: 1979 Smokeless Tobacco: Never Alcohol Use Standard Drinks/Week Comments Yes 1 (1 standard drink = 0.6 oz pur e alcohol) Sex and Gender Information Value Date Recorded Sex Assigned at Not on file 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
--- OUTSIDE RECORDS SUMMARY | 2024-11-10 13:19 | XMS_ITS | Encounter Summary ---
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
--- OUTSIDE RECORDS SUMMARY | 2024-11-10 13:20 | XMS_ITS | Encounter Summary ---
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
--- OUTSIDE RECORDS SUMMARY | 2024-11-10 13:20 | XMS_ITS | Clinical Summary ---
Author Organization [facility] Address [address] [place] [address] Phone Care Team Providers Care Flagstone Layer Name Role Phone Gilbert Anderson MD Unavailable Mandeep Christine DO Primary Care Provider [phone] Allergies Active Allergy Reactions Criticality Noted Date [...] collected on 02/25/23 consistent with AD - [id number]/abeta42: 0.060 (H), Ab42 573 (L), t-tau 350 (H), p-tau 34.6 (H) -Diagnosis: AD -Namenda/memantine 10 mg BID, sertraline/Zoloft 100 mg, did not want to pursue anti amyloid therapy -discontinued donepezil/Aricept d/t GI upset, diverticultis, wt loss Assessment & Plan (05/25/2024 10:54 AM MAP PLOTTER): Stop donepezil/Aricept due to wt loss, diverticulitis, low appetite Continue Namenda/memantine 10 mg BID Physical therapy and occupational therapy at home Referred to Geriatrics for primary care ( request) Assessment & Plan (04/03/2024 9:07 AM CDT): -Onset: 2019 -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, moderate WMD -Biomarkers: CSF ADEVL collected on 02/25/23 consistent with AD - ucvg064/abeta42: 0.060 (H), Ab42 573 (L), t-tau 350 (H), p-tau 34.6 (H) -Diagnosis: AD -Relevant medications: donepezil/Aricept 5 mg (GI upset with higher dose), Namenda/memantine 10 mg BID, sertraline/Zoloft 100 mg, did not want to pursue anti amyloid therapy PLAN: Eliazar dias Consider increasing sertraline/Zoloft moving forward Increase physical activity, two community centers in [place] 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, 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 Please send referral to 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 benefits Iron deficiency anemia due to chronic blood loss 08/02/2019 Iron deficiency anemia secelana joyy to inadequate dietary iron intake 04/19/2018 Myocardial ischemia 05/01/2015 Hiatal hernia 04/26/2015 Encounters Date Type Department Care Team Description 09/18/2024 Telephone [facility] Medicine [address] [place] [address] [place] [address] [place] [address] Isabella Reddy MD 09/18/2024 Orders Only [address] [place] [address] [place] [address] Isabella Reddy MD 09/18/2024 Results Follow-Up [address] [place] [address] [place] [address] Isabella Reddy MD Lipid panel, Hemoglobin A1c, Vitamin D 25 hydroxy, Additional followed-up results: 9 09/15/[address] [place] [address] [place] [address] Isabella Reddy MD [facility] facility 09/14/2024 8:55 PM CDT Lab [facility]) [address] [place] [address] Screening for hyperlipidemia; Screening for diabetes mellitus; Vitamin D deficiency; Screening for viral disease; Weakness; Iron deficiency anemia secondary to inadequate dietary iron intake; Screening for thyroid disorder 09/14/2024 4:00 PM CDT Office Visit [facility] Medicine [address] [place] [address] [place] [address] [place] [address] Isabella Reddy MD Iron deficiency anemia secondary to inadequate dietary iron intake (Primary Dx); Vitamin D deficiency; Screening for diabetes mellitus; Screening for hyperlipidemia; Screening for thyroid disorder; Weakness; Screening for viral disease; Localized swelling, mass, or lump of lower extremity, bilateral; Bilateral leg edema; Abscess of abdominal cavity (HCC) 09/14/2024 Telephone [facility] Medicine [address] [facility] [address] Medical Office [address] [place] [address] Tianna Prakash RN 08/27/2024 Orders Only [facility] ED Scanning, Provider from Last 3 Months Immunizations Immunization Administration [...] on file Legal Sex Male 9:32 PM MAP PLOTTER Gender Identity Male 03/31/2023 8:02 AM CDT Sexual Orientation Straight 03/31/2023 8: 02 AM CDT Obstetrics History Last Filed Vital Signs Vital Sign Reading Time Taken Comments Blood Pressure 145/79 09/14/2024 3:39 PM CDT Pulse 69 09/14/2024 3:39 PM CDT Temperature 36.8 C (98.3 F) 09/14/2024 3:39 PM CDT Respiratory Rate 16 08/04/2019 12:00 PM MAP PLOTTER Oxygen Saturation 99% 09/14/2024 3:39 PM CDT Inhaled Oxygen Concentration - - Weight 77.6 kg (171 lb) 09/14/2024 3:39 PM CDT Height 175.3 cm (5' 9) 09/14/2024 3:39 PM CDT Body Mass Index [...] ORDERABLES Final Result [facility] [place] [address] * Differential, auto (09/14/2024 5:50 PM CDT) [facility] Neutrophil abs 3.87 1.50 - 6.50 K/cumm [...] on 2017. Imm gran pct 0.2 % [facility] Comment: Interpretive Data Percent cell count reference ranges are not reported, since discordance with absolute values may lead to misinterpretation of CBC data. Current Interpretive Data was last revised on 2017. Lymphocyte pct 19.9 % [facility] Comment: Interpretive Data Percent cell count reference ranges are not reported, since discordance with absolute values may lead to misinterpretation of CBC data. Current Interpretive Data was last revised on 2017. Monocyte pct 11.6 % [facility] Comment: Interpretive Data Percent cell count reference ranges are not reported, since discordance with absolute values may lead to misinterpretation of CBC data. Current Interpretive Data was last revised on 2017. Eosinophil pct 1.9 % [facility] Comment: Interpretive Data Percent cell count reference ranges are not reported, since discordance with absolute values may lead to misinterpretation of CBC data. Current Interpretive Data was last revised on 2017. Basophil pct 0.5 % [facility] Comment: Interpretive Data Percent cell count reference ranges are not reported, since discordance with absolute values may lead to misinterpretation of CBC data. Current Interpretive Data was last revised on 2017. Blood 09/14/2024 5:50 PM CDT 09/14/2024 6:10 PM CDT Isabella Reddy MD LAB BLOOD ORDERABLES Final Result Performing Organization Address City/State/[facility] Co de Phone Number [facility] [place] [address] * (ABNORMAL) Thyroid Function [place] (09/14/2024 5:50 PM CDT) TSH 4.68(H) 0.30 - 4.20 mcIUnit/mL Blood 09/14/2024 5:50 PM CDT 09/14/2024 6:10 PM CDT Isabella Reddy MD LAB BLOOD ORDERABLES Final Result Performing Organization Address [facility] Co de Phone Number [facility] Department [place] [address] * (ABNORMAL) CBC with auto differential (09/14/2024 [...] MD LAB BLOOD ORDERABLES Final Result [facility] [place] [address] * (ABNORMAL) Hepatitis B core antibody, total Blood (09/14/2024 5:50 PM CDT) [facility] Hep B core IgG/IgM Reactive( A) Nonreactive Blood 09/14/2024 5:50 PM CDT 09/14/2024 6:10 PM CDT Isabella Reddy MD LAB MICROBIOLOGY - G ENERAL ORDERABLES Final Result [facility] [place] [address] * (ABNORMAL) Vitamin D 25 hydroxy (09/14/2024 5:50 PM CDT) Pathologist [facility] Vitamin D 25-OH 23(L) 30 - 80 ng/mL Blood 09/14/2024 5:50 PM CDT 09/14/2024 6:10 PM CDT Isabella Reddy MD LAB BLOOD ORDERABLES Final Result Performing Organization Address [facility] Co de Phone Number [facility] [place] [address] * Hepatitis B surface antibody (immune status) Blood (09/14/2024 5:50 PM CDT) Pathologist [facility] HBsAb (immune status) Reactive Comment:This result [...] Final Result Performing Organization Address City/[facility]/ZIP Co de Phone Number [facility] [place] [address] * Hepatitis B Surface Antigen Blood (09/14/2024 5:50 PM CDT) Pathologist [facility] HepBsAg Nonreactive Nonreactive Blood 09/14/2024 5:50 PM CDT 09/14/2024 6:10 PM CDT Result [facility] Isabella Reddy MD LAB MICROBIOLOGY - G ENERAL ORDERABLES Final Result Performing Organization Address City/[facility]/ZIP Co de Phone Number [facility] Department [place] [address] * T4, free (09/14/2024 5:50 PM CDT) [facility] T4 1.08 0.90 - 1.70 ng/dL Blood 09/14/2024 5:50 PM CDT 09/14/2024 6:15 PM CDT Narrative [facility] - 09/14/2024 7:25 PM CDT This test was reflexed from a TSH result. Result [facility] Isabella Reddy MD LAB BLOOD ORDERABLES Final Result Performing Organization Address [facility] de Phone Number [facility] [place] [address] * (ABNORMAL) Hemoglobin A1c (09/14/2024 5:50 PM [...] PM CDT 09/14/2024 6:10 PM CDT Result [facility] Isabella Reddy MD LAB BLOOD ORDERABLES Final Result Performing Organization Address City/[facility] [place] [address] * Lipid panel (09/14/2024 5:50 PM CDT) [...] revised on 2018. Triglycerides 92 <=149 mg/dL [facility] Comment: Interpretive Data Ages < or = [...] on 2018. HDL 62 >=40 mg/dL [facility] Comment: Interpretive Data Ages < or = [...] 2018. LDL, calculated 87 <=129 mg/dL [facility] Comment: Interpretive Data Ages < or = [...] revised on 2024. Non-HDL Cholesterol 104 mg/dL [facility] Comment: Interpretive Data Ages < or = [...] Reddy MD LAB BLOOD ORDERABLES Final Result [facility] Department [place] [address] * (ABNORMAL) Comprehensive metabolic panel (09/14/2024 5:50 [...] CENTER Creatinine 0.96 0.80 - 1.30 mg/dL [facility] Glucose 110 70 - 199 mg/dL [facility] [...] ORDERABLES Final Result [facility] [place] [address] * SCAN - LABS (08/27/2024) us Provider Scanning Final Result from Last 3 Months Insurance MEDICARE FOR LIFE MEDICARE FOR LIFE Care Teams Flagstone Layer Relationship Specialty Start Date End Date Mandeep Christine DO [address] [place] [address] PCP - General Internal Medicine 09/22/24 Gilbert Anderson MD Medical Oncologist/Flooring Mechanic Hematology and Oncology 04/19/18
--- OUTSIDE RECORDS SUMMARY | 2024-11-10 13:20 | XMS_ITS | Referral Summary ---
Author Organization [facility] Address [address] [place] [address] Phone Care Team Providers Care Web Offset Press Feeder Name Role Phone Gilbert Anderson MD Unavailable [phone] Mandeep Christine DO Primary Care Provider [phone] Encounters Date Type Department Care Team Description 09/18/2024 Telephone [facility] [address]th [place] [address] [place] [id number] Isabella Reddy MD 09/18/2024 Orders Only [facility] Geriatric Medicine [address] [place] [address] [address]th [place] [address] [place] [id number] Isabella Reddy MD 09/18/2024 Results Follow-Up [place] [address] [facility] [address]th [place] [address] [place] [phone] Isabella Reddy MD Lipid panel, Hemoglobin A1c, Vitamin D 25 hydroxy, Additional followed-up results: 9 09/15/2024 Telephone [facility] [address]th [place] [address] [place] [phone] Isabella Reddy MD page hospital facility 09/14/2024 8:55 PM CDT Lab [facility]) [facility] [place] [phone] Screening for hyperlipidemia; Screening for diabetes mellitus; Vitamin D deficiency; Screening for viral disease; Weakness; Iron deficiency anemia secondary to inadequate dietary iron intake; Screening for thyroid disorder 09/14/2024 Telephone [facility] Geriatric Medicine [address] [facility] [address] Medical Office Building 2 [place] [address] Tianna Prakash RN 09/14/2024 4:00 PM CDT Office Visit [facility] Geriatric Medicine [address] [facility] 12th [place] [address] [place] [phone] Isabella Reddy MD Iron deficiency anemia secondary to inadequate dietary iron intake (Primary Dx); Vitamin D deficiency; Screening for diabetes mellitus; Screening for hyperlipidemia; Screening for thyroid disorder; Weakness; Screening for viral disease; Localized swelling, mass, or lump of lower extremity, bilateral; Bilateral leg edema; Abscess of abdominal cavity (HCC) 08/27/2024 Orders Only [facility] [...] collected on 02/25/23 consistent with AD - [id number]: 0.060 (H), Ab42 573 (L), t-tau 350 (H), p-tau 34.6 (H) -Diagnosis: AD -Namenda/memantine 10 mg BID, sertraline/Zoloft 100 mg, did not want to pursue anti amyloid therapy -discontinued donepezil/Aricept d/t GI upset, diverticultis, wt loss Assessment & Plan (05/25/2024 10:54 AM PONY RIDE ATTENDANT): Stop donepezil/Aricept due to wt loss, diverticulitis, low appetite Continue Namenda/memantine 10 mg BID Physical therapy and occupational therapy at home Referred to Geriatrics for primary care ( request) Assessment & Plan (04/03/2024 9:07 AM CDT): -Onset: 2019 -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, moderate WMD -Biomarkers: CSF ADEVL collected on 02/25/23 consistent with AD - [id number]: 0.060 (H), Ab42 573 (L), t-tau 350 (H), p-tau 34.6 (H) -Diagnosis: AD -Relevant medications: donepezil/Aricept 5 mg (GI upset with higher dose), Namenda/memantine 10 mg BID, sertraline/Zoloft 100 mg, did not want to pursue anti amyloid therapy PLAN: Eliazar dias Consider increasing sertraline/Zoloft moving forward Increase physical activity, two community centers in [place] 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, counseling for [employer] [facility] Please send referral to [...] on file Legal Sex Male 9:32 PM PONY RIDE ATTENDANT Gender Identity Male 03/31/2023 8:02 AM CDT Sexual Orientation Straight 03/31/2023 8: 02 AM CDT Last Filed Vital Signs Vital Sign Reading Time Taken Comments Blood Pressure 145/79 09/14/2024 3:39 PM CDT Pulse 69 09/14/2024 3:39 PM CDT Temperature 36.8 C (98.3 F) 09/14/2024 3:39 PM CDT Respiratory Rate 16 08/04/2019 12:00 PM PONY RIDE ATTENDANT Oxygen Saturation 99% 09/14/2024 3:39 PM CDT [...] of Race in Diagnosing Kidney Disease, JASN 202). The CKD-EPI equation should not be used for patients with unstable renal function and has not been validated in children and those over 70. Current interpretive data was last reviewed 2021. Blood 09/14/2024 5:50 PM CDT 09/14/2024 6:15 PM CDT us Isabella Reddy MD LAB BLOOD ORDERABLES Final Result [facility] Department of Laboratories [place], [place] [id number] * Differential, auto (09/14/2024 5:50 PM CDT) Neutrophil abs 3.87 1.50 - 6.50 K/cumm Imm gran abs 0.01 0.00 - 0.10 K/cumm [facility] Lymphocyte abs 1.17 0.80 - 3.30 K/cumm [facility] Monocyte abs 0.68 0.20 - 0.80 K/cumm [facility] Eosinophil abs 0.11 0.00 - 0.50 K/cumm [facility] Basophil abs 0.03 0.00 - 0.10 K/cumm [facility] Neutrophil pct 65.9 % [facility] Comment: Interpretive Data Percent cell count reference ranges are not reported, since discordance with absolute values may lead to misinterpretation of CBC data. Current Interpretive Data was last revised on 2017. Imm gran pct 0.2 % [facility] Comment: Interpretive Data Percent cell count reference ranges are not reported, since discordance with absolute values may lead to misinterpretation of CBC data. Current Interpretive Data was last revised on 2017. Lymphocyte pct 19.9 % [facility] Comment: Interpretive Data Percent cell count reference ranges are not reported, since discordance with absolute values may lead to misinterpretation of CBC data. Current Interpretive Data was last revised on 2017. Monocyte pct 11.6 % [facility] Comment: Interpretive Data Percent cell count reference ranges are not reported, since discordance with absolute values may lead to misinterpretation of CBC data. Current Interpretive Data was last revised on 2017. Eosinophil pct 1.9 % [facility] Comment: Interpretive Data Percent cell count reference ranges are not reported, since discordance with absolute values may lead to misinterpretation of CBC data. Current Interpretive Data was last revised on 2017. Basophil pct 0.5 % [facility] Comment: Interpretive Data Percent cell count reference ranges are not reported, since discordance with absolute values may lead to misinterpretation of CBC data. Current Interpretive Data was last revised on 2017. Blood 09/14/2024 5:50 PM CDT 09/14/2024 6:10 PM CDT Isabella Reddy MD LAB BLOOD ORDERABLES Final Result [facility] Department [place] [address] * (ABNORMAL) Thyroid Function [place] (09/14/2024 5:50 PM CDT) TSH 4.68(H) 0.30 - 4.20 mcIUnit/mL Blood 09/14/2024 5:50 PM CDT 09/14/2024 6:10 PM CDT Isabella Reddy MD LAB BLOOD ORDERABLES Final Result [facility] Department [place] [address] * (ABNORMAL) CBC with auto differential (09/14/2024 5:50 PM CDT) [facility] WBC 5.87 3.80 - 9.90 K/cumm Hgb 11.1(L) 13.0 - 17.5 g/dL [facility] Hct 35.0(L) 38.9 - 50.3 % [facility] Plt 297 150 - 400 K/cumm [facility] MPV 9.7 9.1 - 12.3 fL [facility] RBC 3.88(L) 4.30 - 5.80 M/cumm [facility] MCV 90.2 81.3 - 96.4 fL [facility] MCH 28.6 27.1 - 33.3 pg [facility] MCHC 31.7(L) 32.3 - 35.7 g/dL [facility] RDW CV 15.9(H) 11.1 - 14.9 % [facility] RDW SD 52.8(H) 35.7 - 48.1 fL [facility] NRBC abs 0.00 0.00 - 0.01 K/cumm [facility] Blood 09/14/2024 5:50 PM CDT 09/14/2024 6:10 PM CDT Isabella Reddy MD LAB BLOOD ORDERABLES Final Result [facility] Department [place] [address] * (ABNORMAL) Hepatitis B core antibody, total Blood (09/14/2024 5:50 PM CDT) [facility] Hep B core IgG/IgM Reactive( A) Nonreactive Blood 09/14/2024 5:50 PM CDT 09/14/2024 6:10 PM CDT Isabella Reddy MD LAB MICROBIOLOGY - G ENERAL ORDERABLES Final Result Performing Organization Address City/[facility]/ZIP Co de Phone Number [facility] Department of [employer] [place] [address] * (ABNORMAL) Vitamin D 25 hydroxy (09/14/2024 5:50 PM CDT) Pathologist [facility] Vitamin D 25-OH 23(L) 30 - 80 ng/mL Blood 09/14/2024 5:50 PM CDT 09/14/2024 6:10 PM CDT Isabella Reddy MD LAB BLOOD ORDERABLES Final Result Performing Organization Address [facility] Co de Phone Number [facility] [place] [address] * Hepatitis B surface antibody (immune status) Blood (09/14/2024 5:50 PM CDT) Pathologist [facility] HBsAb (immune status) Reactive Comment:This result is consi stent with immunity to Hepatitis B Virus when used in the setting of routine screening. Current interpretive data was last revised on 22 HBsAb (immune status) index 4,422.0 mIUnits/m L [facility] Blood 09/14/2024 5:50 PM CDT 09/14/2024 6:10 PM CDT Isabella Reddy MD LAB MICROBIOLOGY - G ENERAL ORDERABLES Final Result Performing Organization Address City/[facility] Co de Phone Number [facility] [place] [address] * Hepatitis B Surface Antigen Blood (09/14/2024 5:50 PM CDT) Pathologist [facility] HepBsAg Nonreactive Nonreactive Blood 09/14/2024 5:50 PM CDT 09/14/2024 6:10 PM CDT Result [facility] Isabella Reddy MD LAB MICROBIOLOGY - G ENERAL ORDERABLES Final Result Performing Organization Address City/[facility]/ZIP Co de Phone Number [facility] Department [place] [address] * T4, free (09/14/2024 5:50 PM CDT) Pathologist [facility] Free T4 1.08 0.90 - 1.70 ng/dL Blood 09/14/2024 5:5 0 PM CDT 09/14/2024 6:15 PM CDT Narrative [facility] - 09/14/2024 7:25 PM CDT This test was reflexed from a TSH result. Isabella Reddy MD LAB BLOOD ORDERABLES Final Result Performing Organization Address [facility] de Phone Number [facility] [place] [address] * (ABNORMAL) Hemoglobin A1c (09/14/2024 5:50 PM CDT) [facility] Hgb A1C 5.8(H) 4.0 - 5.6 % Estimated Average Glucose 120 mg/dL [facility] Comment: The ADA recommends reporting an estimated Average Glucose (eAG) with all Hemoglobin A1c results using the equation derived from a study of 507 normal and diabetic adults. Minority populations were underrepresented and children were not included. (Diabetes Care 2020; 43(S1): S66-S76). The eAG is not equivalent to a fasting glucose. Blood 09/14/2024 5:50 PM CDT 09/14/2024 6:10 PM CDT Result [facility] Isabella Reddy MD LAB BLOOD ORDERABLES Final Result Performing Organization Address [facility] Co de Phone Number [facility] [employer] [place] [address] * Lipid panel (09/14/2024 5:50 PM CDT) [...] revised on 2018. Triglycerides 92 <=149 mg/dL [facility] Comment: Interpretive Data Ages < or [...] revised on 2018. HDL 62 >=40 mg/dL [facility] Comment: Interpretive Data Ages < or [...] on 2018. LDL, calculated 87 <=129 mg/dL [facility] Comment: Interpretive Data Ages < or [...] revised on 2024. Non-HDL Cholesterol 104 mg/dL [facility] Comment: Interpretive Data Ages < or = [...] last revised on 2018. Chol/HDL ratio 3 [facility] Blood 09/14/2024 5:50 PM CDT 09/14/2024 6:10 PM CDT Isabella Reddy MD LAB BLOOD ORDERABLES Final Result [facility] Department [place] [address] * (ABNORMAL) Comprehensive metabolic panel (09/14/2024 5:50 PM CDT) Sodium 143 135 - 145 mmol/L Potassium, pl 3.8 3.3 - 4.9 mmol/L [facility] Chloride 106 97 - 110 mmol/L [facility] CO2 33(H) 22 - 32 mmol/L [facility] Anion gap 4 2 - 15 mmol/L [facility] BUN 17 6 - 25 mg/dL [facility] Creatinine 0.96 0.80 - 1.30 mg/dL [facility] Glucose 110 70 - 199 mg/dL [facility] Comment: Interpretive Data Fasting glucose >/= 126 [...] 2022. Calcium 8.9 8.5 - 10.3 mg/dL [facility] Bilirubin, total 0.3 0.1 - 1.2 mg/dL [facility] Protein, pl 7.0 6.5 - 8.5 g/dL [facility] Albumin 3.9 3.5 - 5.0 g/dL [facility] Alk phos 99 40 - 130 Units/L [facility] ALT 19 7 - 55 Units/L [facility] AST 25 10 - 50 Units/L [facility] Blood 09/14/2024 5:50 PM CDT 09/14/2024 6:10 PM CDT Isabella Reddy MD LAB BLOOD ORDERABLES Final Result [facility] [place] [address] * SCAN - LABS (08/27/2024) Provider Scanning Final Result from Last 3 Months Insurance MEDICARE FOR LIFE MEDICARE FOR LIFE Care Teams Web Offset Press Feeder Relationship Specialty Start Date End Date Mandeep Christine DO [address] [place] [id number] PCP - General Internal Medicine 09/22/24 Gilbert Anderson MD Medical Oncologist/Auto Dismantler Hematology and Oncology 04/19/18
--- OUTSIDE RECORDS SUMMARY | 2024-11-10 13:20 | XMS_ITS | Encounter Summary ---
Author Organization [facility] Healthcare Address [address] [place] [address] Care Team Providers Care Biofuels Production Technician Name Role Phone Gilbert Anderson MD Unavailable [phone] Brock Ulrich MD Primary Care Provider [phone] Mandeep Christine DO Primary Care Provider [phone] Encounter Details Date Type Department Care Team (Late st Contact Info) Description 05/26/2024 Telephone [facility] Home Care Services [address] [facility] [address] [place] [address] Erinn Bedolla RN Social History Tobacco Use Types Packs/Day Years Used Date Smoking Tobacco: Former Cigarettes Q uit: 1979 Smokeless Tobacco: Never Alcohol Use Standard Drinks/Week Comments Yes 1 (1 standard drink = 0.6 oz pur e alcohol) Sex and Gender Information Value Date Recorded Sex Assigned at Not on file Legal Sex Male 9:32 PM SHOE STITCHER Gender Identity Male 03/31/2023 8:02 AM CDT Sexual Orientation Straight 03/31/2023 8: 02 AM CDT documented as of this encounter Plan of Treatment Not on file documented as of this encounter Visit Diagnoses Not on filedocumented in this encounter Care Teams Biofuels Production Technician Relationship Specialty Start Date End Date Brock Ulrich MD PCP - General Family Practice 12/18/22 06/22/24 Mandeep Christine DO [address] [place] [address] PCP - General Internal Medicine 09/22/24 Gilbert Anderson MD Medical Oncologist/Barker Operator Hematology and Oncology 04/19/18 documented as of this encounter
[2024-11-10 13:27] VITALS: BP 114/68; PULSE 83; RESP 16; TEMP 36.3; O2SAT 100
[2024-11-10 15:00] VITALS: BP 127/74; PULSE 72; RESP 18; O2SAT 100
[2024-11-10 15:03] LABS: Alanine Aminotransferase 19 U/L (6-50); Alkaline Phosphatase 79 U/L (38-126); Anion Gap 9 mmol/L (4-12); Aspartate Amino Transferase 22 U/L (17-59); Bilirubin,Total 0.3 mg/dL (0.2-1.3); Blood Urea Nitrogen 23 mg/dL (9-20); Calcium 8.8 mg/dL (8.4-10.2); Carbon Dioxide 27 mmol/L (22-30); Chloride 106 mmol/L (98-107); Estimated CRCL calculation 52 ml/min; Estimated Glomerular Filt Rate > 60; Glucose 120 mg/dL (65-110); Lipase 46 U/L (23-300); Potassium 3.3 mmol/L (3.4-5.0); Sodium 142 mmol/L (137-145)
--- NOTE | 2024-11-10 15:09 | ED_ITS ---
HPI - Recheck/Abnormal Lab/Rx General Chief Complaint: Recheck/Abnormal Lab/Rx Stated Complaint: drainage from previous surgery site/ Time Seen by Provider: 11/10/24 14:39 Source: patient and family Mode of arrival: ambulatory Limitations: dementia History of Present Illness HPI narrative: This is a 79 year old male that presents to the emergency department for increasing drainage from abdominal wound. Patient recently admitted for diverticulitis with abscess. He had a drain placed that had to be replaced and then he pulled the drain out. He no longer currently has a drain. He does still have an open wound that drains pus. He is currently taking Augmentin for this. Denies fevers, abdominal pain. Related Data Allergies Allergy/AdvReac Type Severity Reaction Status Date / Time venom-wasp Allergy Severe Swelling Verified 11/10/24 14:36 Sulfa (Sulfonamide Allergy Mild Rash Verified 11/10/24 14:36 Antibiotics) Review of Systems 2 Review of Systems: All systems reviewed & are unremarkable except as noted in HPI and below PMFSH Past Medical History Medical History CHF (congestive heart failure) BMI 37.0-37.9, adult Melanoma Arthritis Mild dementia Benign prostatic hyperplasia Benign essential hypertension Chronic GERD Iron deficiency anemia Surgical History Surgical History History of incision and drainage 08/24/24 Incision and drainage of complex abdominal wall extending to the fascia and rectus muscle Dr. Sanches History of melanoma excision History of bilateral cataract extraction Status post repair of paraesophageal diaphragmatic hernia History of right inguinal hernia repair History of transurethral resection of prostate Family History Family History Mother Hypertension Family history of coronary artery disease Heart disease Father Family history of primary malignant neoplasm of liver Sibling No problems noted. Sibling No problems noted. Social History Social History Social History: Surrogate medical decision maker: Rula Watson, spouse. Code status: Full code. Smoking packs per day: 1 Smoking cigarettes per day: 20.0 Years smoked: 50 Smoking pack-years: 50.00 Smoking status: Former smoker Second hand tobacco smoke exposure: No Alcohol intake: unknown Drinks per week: 3 Substance use: unknown Substance use type: unknown Do You Feel Safe in your Home?: Yes Lack of Transportation: No Lack of Food: Never True Current Housing: I Have Housing Concerned About Future Housing: No Difficulty Paying Gas/Electric Bills: No Difficulty Paying for Meds: No Currently Unemployed: No Education: Bachelor's Degree Difficulty w/ Childcare or Family Care: No Living arrangements: with family Additional living arrangements comments: Lives with spouse in [place]. 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 Gender identity (if verbalized by the patient): Male Spiritual care concerns: No Exam 2 Narrative: GENERAL: Elderly, well-nourished, and in no acute distress. HEAD: Normocephalic, atraumatic. EYES: EOMI. CHEST: Clear to auscultation. No respiratory distress. No wheezes rales or rhonchi HEART: Regular rate and rhythm. No murmur heard. Normal peripheral pulses. ABDOMEN: Soft, nontender, nondistended, normal active bowel sounds. Palpable mass at the lower mid abdomen that when pressed purulence expresses from small open abdominal wound EXTREMITIES: Normal range of motion. No edema. SKIN: Warm, dry, no rash. NEURO: No focal deficits. Alert and oriented x3. PSYCH: Normal mood and affect Course Course Emergency Course: Patient and family agree with plan of care Consultations Consultation #1: General surgery came down to evaluate the patient. Plan is for him to continue oral antibiotic (Augmentin). They do not wish to proceed with surgery Date: 11/10/24 Vital Signs Vital signs: Vital Signs Temperature 97.4 F L 11/10/24 13:27 Pulse Rate 83 11/10/24 13:27 Respiratory Rate 16 11/10/24 13:27 Blood Pressure 114/68 11/10/24 13:27 Pulse Oximetry 100 11/10/24 13:27 Temperature 97.4 F L 11/10/24 13:27 Pulse Rate 74 11/10/24 17:02 Respiratory Rate 18 11/10/24 17:02 Blood Pressure 137/73 11/10/24 17:02 Pulse Oximetry 96 11/10/24 17:02 MDM - Recheck/Abnormal Lab/Rx MDM Narrative Medical decision making narrative: Patient presents the emergency department for increasing drainage from abdominal wound. Patient recently admitted for diverticulitis with abscess. He had a drain placed that had to be replaced and then he pulled the drain out. He no longer currently has a drain. He does still have an open wound that drains pus. He is currently taking Augmentin for this. He is afebrile and nontoxic appearing. Cbc without leukocytosis. Hemoglobin appears stable. Metabolic panel mild hypokalemia, this was replaced. Magnesium is normal. Urine with possible evidence of infection, although many squamous epithelial cells. Will send oral antibiotic pending culture results. CT abdomen pelvis appears unchanged from previous exam. General surgery came down to evaluate the patient. Plan is for him to continue oral antibiotic (Augmentin). Patient and family do not wish to proceed with surgery. They will follow up in clinic Differential Diagnosis Differential diagnosis: Likely other (Intra-abdominal abscess, UTI) Lab Data Attestation: I reviewed the patient's lab results. 11/10/24 14:47 11/10/24 14:47 Labs: Lab Results 11/10/24 11/10/24 Range/Units 14:47 15:21 WBC 4.8 (4.5-10.0) K/mm3 RBC 3.08 L (4.6-6.20) M/mm3 Hgb 9.0 L (14.0-18.0) g/dL Hct 29.2 L (42.0-52.0) % MCV 94.8 (80-100) fl MCH 29.2 (26-34) pg MCHC 30.8 L (32-36) g/dl RDW 14.5 (11.5-14.5) % Plt Count 130 L D (150-375) k/mm3 MPV 9.8 (7.4-10.4) fl Immature Gran % (Auto) 0.4 (0-0.5) % Neut % (Auto) 69.3 (45.5-73.1) % Lymph % (Auto) 14.6 L (18.3-44.2) % Peach % (Auto) 10.3 H (2.6-8.5) % Eos % (Auto) 4.8 H (0-4.4) % Baso % (Auto) 0.6 (0.2-1.2) % Lymph # (Auto) 0.70 L (0.9-3.2) K/mm3 Peach # (Auto) 0.5 (0.1-0.6) K/mm3 Eos # (Auto) 0.2 (0-0.3) K/mm3 Baso # (Auto) 0.0 (0.0-0.1) K/mm3 Abs Immat Gran (auto) 0.02 (0.00-0.031) K/mm3 Absolute Neuts (auto) 3.3 (1.3-6.7) K/mm3 Absolute Nucleated RBC 0.000 (0.0-0.012) K/mm3 Nucleated RBC % 0.0 (0.0-0.2) % ESR 24 H (0-20) mm/hr Sodium 142 (137-145) mmol/L Potassium 3.3 L (3.4-5.0) mmol/L Chloride 106 (98-107) mmol/L Carbon Dioxide 27 (22-30) mmol/L Anion Gap 9 (4-12) mmol/L BUN 23 H (9-20) mg/dL Creatinine 0.92 (0.7-1.3) mg/dL Estim Creat Clear Calc 52 ml/min Estimated GFR > 60 (59 - ) Glucose 120 H (65-110) mg/dL Calcium 8.8 (8.4-10.2) mg/dL Magnesium 1.9 (1.6-2.3) mg/dL Total Bilirubin 0.3 (0.2-1.3) mg/dL AST 22 (17-59) U/L ALT 19 (6-50) U/L Alkaline Phosphatase 79 (38-126) U/L C-Reactive Protein 0.9 (<1.0) mg/dL Total Protein 7.0 (6.3-8.2) g/dL Albumin 4.0 (3.5-5.1) g/dL Lipase 46 (23-300) U/L Urine Color Yellow (Yellow) Urine Appearance Turbid H (Clear) Urine pH 5.5 (5.0-9.0) Ur Specific [place] 1.028 (1.001-1.035) Urine Protein 2+ H (Negative) mg/dL Urine Glucose (UA) Negative (Negative) mg/dL Urine Ketones Trace H (Negative) mg/dL Ur Blood (Man) Trace (Negative) Urine Nitrate Negative (Negative) Urine Bilirubin Negative (Negative) Urine Urobilinogen 1.0 (<2.0) mg/dL Add Ur Microanalysis Reviewed Leukocyte Esterase Rfl 3+ H (Negative) SHAHEED/UL Urine RBC 21-50 H (0-2) /hpf Urine WBC 21-50 H (0-3) /hpf Ur Squamous Epith Cells Many H (Few) /hpf Urine Bacteria 3+ H /hpf Urine Casts 0-2 Imaging Data Radiologist's impression: ITS Impressions Abdomen/Pelvis CT 11/10/24 16:11 IMPRESSION: 1. No significant change from previous examination. Critical Care Time Critical Care Time Critical Care Time: No Discharge Plan Discharge Clinical Impression: Colocutaneous fistula, Acute UTI Patient Disposition: Home Condition: Stable Instructions: Antibiotic Form, Urinary Tract Infection in Men (ED), Abscess (ED) Additional Instructions: Return to the ER if you experience fever, abdominal pain with nausea and vomiting, you are unable to keep down liquids or solids, or any other symptoms that are concerning to you Clean the area and change your bandage twice daily. Continue oral antibiotics (Augmentin) as prescribed. I have sent Nitrofurantoin to the pharmacy to treat for a possible UTI Follow up with general surgery as directed Patient Language: Malagasy Prescriptions: New nitrofurantoin macrocrystal 100 mg capsule 100 mg PO Q12H 5 Days Qty: 10 0RF Rx Instructions: must administer with a meal/food No Action levofloxacin 500 mg tablet 500 mg PO DAILY Qty: 14 0RF amoxicillin-pot clavulanate 875-125 mg tablet 1 tablet PO Q12H Qty: 15 1RF memantine 10 mg tablet 10 mg PO BID Qty: 180 1RF ferrous sulfate 325 mg (65 mg iron) tablet,delayed release (DR/EC) 325 mg PO BID Qty: 180 1RF Eliquis 5 mg tablet 5 mg PO BID Qty: 180 1RF bumetanide 1 mg tablet 1 mg PO DAILY Qty: 30 4RF buspirone 10 mg tablet 10 mg PO TID PRN (Reason: anxiety) Qty: 45 0RF sertraline 100 mg tablet 150 mg PO DAILY Qty: 135 1RF Patient Comments: QAM omeprazole 40 mg capsule,delayed release(DR/EC) 40 mg PO DAILY Qty: 90 1RF linezolid 600 mg tablet 600 mg PO Q12H 28 Days Qty: 56 0RF amoxicillin-pot clavulanate 875-125 mg tablet 1 tablet PO Q12H Qty: 42 0RF Follow-up/Referrals: Nanci,Mandeep Conklin DO [Primary Care Provider] - Segundo Sanches DO [Physician] - Stand Alone Forms: Penitentiary Discharge
[2024-11-10 15:11] LABS: Basophils Percent Auto 0.6 % (0.2-1.2); Eosinophils Absolute Auto 0.2 K/mm3 (0-0.3); Eosinophils Percent Auto 4.8 % (0-4.4); Hematocrit 29.2 % (42.0-52.0); Immature Granulocyte Absolute 0.02 K/mm3 (0.00-0.031); Immature Granulocyte Percent A 0.4 % (0-0.5); Lymphocytes Percent Auto 14.6 % (18.3-44.2); Mean Corpuscular HGB Conc 30.8 g/dl (32-36); Mean Corpuscular Hemoglobin 29.2 pg (26-34); Mean Corpuscular Volume 94.8 fl (80-100); Mean Platelet Volume 9.8 fl (7.4-10.4); Monocytes Absolute Auto 0.5 K/mm3 (0.1-0.6); Monocytes Percent Auto 10.3 % (2.6-8.5); Neutrophils Absolute Auto 3.3 K/mm3 (1.3-6.7); Neutrophils Percent Auto 69.3 % (45.5-73.1); Platelet Count Result 130 k/mm3 (150-375); Red Blood Count 3.08 M/mm3 (4.6-6.20); Red Cell Distribution Width 14.5 % (11.5-14.5); White Blood Count 4.8 K/mm3 (4.5-10.0)
--- OUTSIDE RECORDS SUMMARY | 2024-11-10 15:23 | XMS_ITS | Encounter Summary ---
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
--- OUTSIDE RECORDS SUMMARY | 2024-11-10 15:23 | XMS_ITS | Encounter Summary ---
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
--- OUTSIDE RECORDS SUMMARY | 2024-11-10 15:23 | XMS_ITS | Encounter Summary ---
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
--- OUTSIDE RECORDS SUMMARY | 2024-11-10 15:23 | XMS_ITS | Clinical Summary ---
Author Organization [facility] Address [address] [place] [address] Phone Care Team Providers Care Newspaper Deliverer Name Role Phone Gilbert Anderson MD Unavailable [phone] Mandeep Christine DO Primary Care Provider [phone] Allergies Active Allergy Reactions Criticality Noted Date [...] collected on 02/25/23 consistent with AD - [id number]: 0.060 (H), Ab42 573 (L), t-tau 350 (H), p-tau 34.6 (H) -Diagnosis: AD -Namenda/memantine 10 mg BID, sertraline/Zoloft 100 mg, did not want to pursue anti amyloid therapy -discontinued donepezil/Aricept d/t GI upset, diverticultis, wt loss Assessment & Plan (05/25/2024 10:54 AM AUTISM TEACHER): Stop donepezil/Aricept due to wt loss, diverticulitis, low appetite Continue Namenda/memantine 10 mg BID Physical therapy and occupational therapy at home Referred to Geriatrics for primary care ( request) Assessment & Plan (04/03/2024 9:07 AM CDT): -Onset: 2019 -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, moderate WMD -Biomarkers: CSF ADEVL collected on 02/25/23 consistent with AD - pntd442/abeta42: 0.060 (H), Ab42 573 (L), t-tau 350 (H), p-tau 34.6 (H) -Diagnosis: AD -Relevant medications: donepezil/Aricept 5 mg (GI upset with higher dose), Namenda/memantine 10 mg BID, sertraline/Zoloft 100 mg, did not want to pursue anti amyloid therapy PLAN: Eliazar dias Consider increasing sertraline/Zoloft moving forward Increase physical activity, two community centers in [place] 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, counseling for Home Appliance Washing Machine Mechanic Shante Pepe Please send referral to 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 benefits Iron deficiency anemia due to chronic blood loss 08/02/2019 Iron deficiency anemia secelana joyy to inadequate dietary iron intake 04/19/2018 Myocardial ischemia 05/01/2015 Hiatal hernia 04/26/2015 Encounters Date Type Department Care Team Description 09/18/2024 Telephone [facility] Medicine [address] [place] [address] [place] [address] [place] [address] Isabella Reddy MD 09/18/2024 Orders Only [address] [place] [address] [place] [address] Isabella Reddy MD 09/18/2024 Results Follow-Up [address] [place] [address] [place] [address] Isabella Reddy MD Lipid panel, Hemoglobin A1c, Vitamin D 25 hydroxy, Additional followed-up results: 9 09/15/[address] [place] [address] [place] [address] [facility] 09/14/2024 8:55 PM CDT Lab [facility] [address] [place] [address] Screening for hyperlipidemia; Screening for diabetes mellitus; Vitamin D deficiency; Screening for viral disease; Weakness; Iron deficiency anemia secondary to inadequate dietary iron intake; Screening for thyroid disorder 09/14/2024 4:00 PM CDT Office Visit [facility] Medicine [address] [place] [address] [place] [address] [place] [address] Isabella Reddy MD Iron deficiency anemia secondary to inadequate dietary iron intake (Primary Dx); Vitamin D deficiency; Screening for diabetes mellitus; Screening for hyperlipidemia; Screening for thyroid disorder; Weakness; Screening for viral disease; Localized swelling, mass, or lump of lower extremity, bilateral; Bilateral leg edema; Abscess of abdominal cavity (HCC) 09/14/2024 Telephone [facility] Medicine [address] 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 Gender Identity Male 03/31/2023 8:02 AM CDT Sexual Orientation Straight 03/31/2023 8: 02 AM CDT Obstetrics History Last Filed Vital Signs Vital Sign Reading Time Taken Comments Blood Pressure 145/79 09/14/2024 3:39 PM CDT Pulse 69 09/14/2024 3:39 PM CDT Temperature 36.8 C (98.3 F) 09/14/2024 3:39 PM CDT Respiratory Rate 16 08/04/2019 12:00 PM AUTISM TEACHER Oxygen Saturation 99% 09/14/2024 3:39 PM CDT [...] Reddy MD LAB BLOOD ORDERABLES Final Result [facility] Department [place] [address] * Differential, auto (09/14/2024 5:50 PM CDT) [facility] Neutrophil abs 3.87 1.50 - 6.50 K/cumm Imm gran abs 0.01 0.00 - 0.10 K/cumm [facility] Lymphocyte abs 1.17 0.80 - 3.30 K/cumm [facility] Monocyte abs 0.68 0.20 - 0.80 K/cumm [facility] Eosinophil abs 0.11 0.00 - 0.50 K/cumm [facility] Basophil abs 0.03 0.00 - 0.10 K/cumm [facility] Neutrophil pct 65.9 % [facility] Comment: Interpretive Data Percent cell count reference ranges are not reported, since discordance with absolute values may lead to misinterpretation of CBC data. Current Interpretive Data was last revised on 2017. Imm gran pct 0.2 % [facility] Comment: Interpretive Data Percent cell count reference ranges are not reported, since discordance with absolute values may lead to misinterpretation of CBC data. Current Interpretive Data was last revised on 2017. Lymphocyte pct 19.9 % [facility] Comment: Interpretive Data Percent cell count reference ranges are not reported, since discordance with absolute values may lead to misinterpretation of CBC data. Current Interpretive Data was last revised on 2017. Monocyte pct 11.6 % [facility] Comment: Interpretive Data Percent cell count reference ranges are not reported, since discordance with absolute values may lead to misinterpretation of CBC data. Current Interpretive Data was last revised on 2017. Eosinophil pct 1.9 % [facility] Comment: Interpretive Data Percent cell count reference ranges are not reported, since discordance with absolute values may lead to misinterpretation of CBC data. Current Interpretive Data was last revised on 2017. Basophil pct 0.5 % [facility] Comment: Interpretive Data Percent cell count reference ranges are not reported, since discordance with absolute values may lead to misinterpretation of CBC data. Current Interpretive Data was last revised on 2017. Blood 09/14/2024 5:50 PM CDT 09/14/2024 6:10 PM CDT Isabella Reddy MD LAB BLOOD ORDERABLES Final Result Performing Organization Address City/State/[facility] Co de Phone Number [facility] Department [place] [address] * (ABNORMAL) Thyroid Function [place] (09/14/2024 5:50 PM CDT) TSH 4.68(H) 0.30 - 4.20 mcIUnit/mL Blood 09/14/2024 5:50 PM CDT 09/14/2024 6:10 PM CDT Isabella Reddy MD LAB BLOOD ORDERABLES Final Result Performing Organization Address [facility] Co de Phone Number [facility] Department [place] [address] * (ABNORMAL) CBC with auto differential (09/14/2024 5:50 PM CDT) [facility] WBC 5.87 3.80 - 9.90 K/cumm Hgb 11.1(L) 13.0 - 17.5 g/dL [facility] Hct 35.0(L) 38.9 - 50.3 % [facility] Plt 297 150 - 400 K/cumm [facility] MPV 9.7 9.1 - 12.3 fL [facility] RBC 3.88(L) 4.30 - 5.80 M/cumm [facility] MCV 90.2 81.3 - 96.4 fL [facility] MCH 28.6 27.1 - 33.3 pg [facility] MCHC 31.7(L) 32.3 - 35.7 g/dL [facility] RDW CV 15.9(H) 11.1 - 14.9 % [facility] RDW SD 52.8(H) 35.7 - 48.1 fL [facility] NRBC abs 0.00 0.00 - 0.01 K/cumm [facility] Blood 09/14/2024 5:50 PM CDT 09/14/2024 6:10 PM CDT Isabella Reddy MD LAB BLOOD ORDERABLES Final Result [facility] Department [place] [employer] [place] [address] * (ABNORMAL) Hepatitis B core antibody, total Blood (09/14/2024 5:50 PM CDT) [facility] Hep B core IgG/IgM Reactive( A) Nonreactive Blood 09/14/2024 5:50 PM CDT 09/14/2024 6:10 PM CDT Isabella Reddy MD LAB MICROBIOLOGY - G ENERAL ORDERABLES Final Result [facility] Department [place] [address] * (ABNORMAL) Vitamin D 25 hydroxy (09/14/2024 5:50 PM CDT) Pathologist [facility] Vitamin D 25-OH 23(L) 30 - 80 ng/mL Blood 09/14/2024 5:50 PM CDT 09/14/2024 6:10 PM CDT Isabella Reddy MD LAB BLOOD ORDERABLES Final Result Performing Organization Address [facility] Co de Phone Number [facility] [place] [address] * Hepatitis B surface antibody (immune status) Blood (09/14/2024 5:50 PM CDT) Pathologist [facility] HBsAb (immune status) Reactive Comment:This result is consi stent with immunity to Hepatitis B Virus when used in the setting of routine screening. Current interpretive data was last revised on 22 HBsAb (immune status) index 4,422.0 mIUnits/m L [facility] Blood 09/14/2024 5:50 PM CDT 09/14/2024 6:10 PM CDT Isabella Reddy MD LAB MICROBIOLOGY - G ENERAL ORDERABLES Final Result Performing Organization Address City/[facility]/ZIP Co de Phone Number [facility] [place] [address] * Hepatitis B Surface Antigen Blood (09/14/2024 5:50 PM CDT) Pathologist [facility] HepBsAg Nonreactive Nonreactive Blood 09/14/2024 5:50 PM CDT 09/14/2024 6:10 PM CDT Result [facility] Isabella Reddy MD LAB MICROBIOLOGY - G ENERAL ORDERABLES Final Result Performing Organization Address City/[facility]/ZIP Co de Phone Number [facility] Department [place] [address] * T4, free (09/14/2024 5:50 PM CDT) [facility] T4 1.08 0.90 - 1.70 ng/dL Blood 09/14/2024 5:50 PM CDT 09/14/2024 6:15 PM CDT Narrative [facility] - 09/14/2024 7:25 PM CDT This test was reflexed from a TSH result. Result [facility] Isabella Reddy MD LAB BLOOD ORDERABLES Final Result Performing Organization Address [facility] de Phone Number [facility] [place] [address] * (ABNORMAL) Hemoglobin A1c (09/14/2024 5:50 PM CDT) [facility] Hgb A1C 5.8(H) 4.0 - 5.6 % Estimated Average Glucose 120 mg/dL [facility] Comment: The ADA recommends reporting an estimated Average Glucose (eAG) with all Hemoglobin A1c results using the equation derived from a study of 507 normal and diabetic adults. Minority populations were underrepresented and children were not included. (Diabetes Care 2020; 43(S1): S66-S76). The eAG is not equivalent to a fasting glucose. Blood 09/14/2024 5:50 PM CDT 09/14/2024 6:10 PM CDT Result [facility] Isabella Reddy MD LAB BLOOD ORDERABLES Final Result Performing Organization Address City/[facility] [place] [place] [address] * Lipid panel (09/14/2024 5:50 PM CDT) [...] revised on 2018. Triglycerides 92 <=149 mg/dL [facility] Comment: Interpretive Data Ages < or [...] on 2018. HDL 62 >=40 mg/dL [facility] Comment: Interpretive Data Ages < or [...] 2018. LDL, calculated 87 <=129 mg/dL [facility] Comment: Interpretive Data Ages < or [...] revised on 2024. Non-HDL Cholesterol 104 mg/dL [facility] Comment: Interpretive Data Ages < or [...] last revised on 2018. Chol/HDL ratio 3 [facility] Blood 09/14/2024 5:50 PM CDT 09/14/2024 6:10 PM CDT us Isabella Reddy MD LAB BLOOD ORDERABLES Final Result [facility] Department [place] [address] * (ABNORMAL) Comprehensive metabolic panel (09/14/2024 5:50 PM CDT) Sodium 143 135 - 145 mmol/L Potassium, pl 3.8 3.3 - 4.9 mmol/L [facility] Chloride 106 97 - 110 mmol/L [facility] CO2 33(H) 22 - 32 mmol/L [facility] Anion gap 4 2 - 15 mmol/L [facility] BUN 17 6 - 25 mg/dL [facility] Creatinine 0.96 0.80 - 1.30 mg/dL [facility] Glucose 110 70 - 199 mg/dL [facility] Comment: Interpretive Data Fasting glucose >/= [...] 2022. Calcium 8.9 8.5 - 10.3 mg/dL [facility] Bilirubin, total 0.3 0.1 - 1.2 mg/dL [facility] Protein, pl 7.0 6.5 - 8.5 g/dL [facility] Albumin 3.9 3.5 - 5.0 g/dL [facility] Alk phos 99 40 - 130 Units/L [facility] ALT 19 7 - 55 Units/L [facility] AST 25 10 - 50 Units/L [facility] Blood 09/14/2024 5:50 PM CDT 09/14/2024 6:10 PM CDT us Isabella Reddy MD LAB BLOOD ORDERABLES Final Result [facility] Department [place] [address] * SCAN - LABS (08/27/2024) us Provider Scanning Final Result from Last 3 Months Insurance MEDICARE FOR LIFE MEDICARE FOR LIFE Care Teams Newspaper Deliverer Relationship Specialty Start Date End Date Mandeep Christine DO [address] [place] [address] PCP - General Internal Medicine 09/22/24 Gilbert Anderson MD Medical Oncologist/Building Components Designer Hematology and Oncology 04/19/18
--- OUTSIDE RECORDS SUMMARY | 2024-11-10 15:23 | XMS_ITS | Encounter Summary ---
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
--- OUTSIDE RECORDS SUMMARY | 2024-11-10 15:23 | XMS_ITS | Encounter Summary ---
Author Organization [facility] Address [address] [place] [address] Phone Care Team Providers Care Vmware Systems Administrator Name Role Phone Gilbert Anderson MD Unavailable [phone] Mandeep Christine DO Primary Care Provider [phone] Encounter Details Date Type Department Care Team (Late st Contact Info) Description 09/18/2024 Results Follow-Up [facility] Geriatric Medicine [address] [facility] Advanced Medicine 12th [place] [address] [place] [address] Isabella Reddy MD [address] [place] [address] Lipid panel, Hemoglobin A1c, Vitamin D 25 [...] on file 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
--- OUTSIDE RECORDS SUMMARY | 2024-11-10 15:23 | XMS_ITS | Encounter Summary ---
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
--- OUTSIDE RECORDS SUMMARY | 2024-11-10 15:23 | XMS_ITS | Encounter Summary ---
Author Organization [facility] Healthcare Address [address] [place] [address] Care Team Providers Care Client Executive Name Role Phone Gilbert Anderson MD Unavailable [phone] Brock Ulrich MD Primary Care Provider [phone] Mandeep Christine DO Primary Care Provider [phone] Encounter Details Date Type Department Care Team (Late st Contact Info) Description 05/26/2024 Telephone [facility] Home Care Services [address] [place] [address] Erinn Bedolla RN Social History Tobacco Use Types Packs/Day Years Used Date Smoking Tobacco: Former Cigarettes Q uit: 1979 Smokeless Tobacco: Never Alcohol Use Standard Drinks/Week Comments Yes 1 (1 standard drink = 0.6 oz pur e alcohol) Sex and Gender Information Value Date Recorded Sex Assigned at Not on file 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 Gender Identity Male 03/31/2023 8:02 AM CDT Sexual Orientation Straight 03/31/2023 8: 02 AM CDT documented as of this encounter Plan of Treatment Not on file documented as of this encounter Visit Diagnoses Not on filedocumented in this encounter Care Teams Client Executive Relationship Specialty Start Date End Date Brock Ulrich MD PCP - General Family Practice 12/18/22 06/22/24 Mandeep Christine DO [address] [place] [address] PCP - General Internal Medicine 09/22/24 Gilbert Anderson MD Medical Oncologist/Neon Electrician Hematology and Oncology 04/19/18 documented as of this encounter
--- OUTSIDE RECORDS SUMMARY | 2024-11-10 15:23 | XMS_ITS | Encounter Summary ---
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
--- OUTSIDE RECORDS SUMMARY | 2024-11-10 15:23 | XMS_ITS | Referral Summary ---
Author Organization [facility] Address [address] [place] [address] Phone Care Team Providers Care Ultra Sound Technician Name Role Phone Gilbert Anderson MD Unavailable Mandeep Christine DO Primary Care Provider [phone] Encounters Date Type Department Care Team Description 09/18/2024 Telephone [facility] Medicine [facility] 12th [address] [place] [id number] Isabella Reddy MD 09/18/2024 Orders Only [facility] Geriatric Medicine [address] [place] [address] 12th [place] [address] [place] [id number] Isabella Reddy MD 09/18/2024 Results Follow-Up [place] [id number] [facility] 12th [address] [place] [id number] Isabella Reddy MD Lipid panel, Hemoglobin A1c, Vitamin D 25 hydroxy, Additional followed-up results: 9 09/15/2024 Telephone [facility] Medicine [facility] 12th [address] [place] [id number] Isabella Reddy MD [facility] 09/14/2024 8:55 PM CDT Lab [facility]) [facility] [place] [phone] Screening for hyperlipidemia; Screening for diabetes mellitus; Vitamin D deficiency; Screening for viral disease; Weakness; Iron deficiency anemia secondary to inadequate dietary iron intake; Screening for thyroid disorder 09/14/2024 Telephone [facility] [address] [facility] [address] Medical Office Building [address] [place] [address] Tianna Prakash RN 09/14/2024 4:00 PM CDT Office Visit [facility] Geriatric Medicine [address] [facility] 12th [address] [place] [phone] Isabella Reddy MD Iron deficiency anemia secondary [...] collected on 02/25/23 consistent with AD - [id number]/abeta42: 0.060 (H), Ab42 573 (L), t-tau 350 (H), p-tau 34.6 (H) -Diagnosis: AD -Namenda/memantine 10 mg BID, sertraline/Zoloft 100 mg, did not want to pursue anti amyloid therapy -discontinued donepezil/Aricept d/t GI upset, diverticultis, wt loss Assessment & Plan (05/25/2024 10:54 AM SPORTS INFORMATION DIRECTOR): Stop donepezil/Aricept due to wt loss, diverticulitis, low appetite Continue Namenda/memantine 10 mg BID Physical therapy and occupational therapy at home Referred to Geriatrics for primary care ( request) Assessment & Plan (04/03/2024 9:07 AM CDT): -Onset: 2019 -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, moderate WMD -Biomarkers: CSF ADEVL collected on 02/25/23 consistent with AD - [id number]/abeta42: 0.060 (H), Ab42 573 (L), t-tau 350 (H), p-tau 34.6 (H) -Diagnosis: AD -Relevant medications: donepezil/Aricept 5 mg (GI upset with higher dose), Namenda/memantine 10 mg BID, sertraline/Zoloft 100 mg, did not want to pursue anti amyloid therapy PLAN: Eliazar dias Consider increasing sertraline/Zoloft moving forward Increase physical activity, two community centers in [place] 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, 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[employer] [facility] Please send referral to [...] on file Legal Sex Male 9:32 PM SPORTS INFORMATION DIRECTOR Gender Identity Male 03/31/2023 8:02 AM CDT Sexual Orientation Straight 03/31/2023 8: 02 AM CDT Last Filed Vital Signs Vital Sign Reading Time Taken Comments Blood Pressure 145/79 09/14/2024 3:39 PM CDT Pulse 69 09/14/2024 3:39 PM CDT Temperature 36.8 C (98.3 F) 09/14/2024 3:39 PM CDT Respiratory Rate 16 08/04/2019 12:00 PM SPORTS INFORMATION DIRECTOR Oxygen Saturation 99% 09/14/2024 3:39 PM CDT [...] Reddy MD LAB BLOOD ORDERABLES Final Result [facility] Department of Laboratories [place], [place] [id number] * Differential, auto (09/14/2024 5:50 PM CDT) Neutrophil abs 3.87 1.50 - 6.50 K/cumm Imm gran abs 0.01 0.00 - 0.10 K/cumm [facility] Lymphocyte abs 1.17 0.80 - 3.30 K/cumm [facility] Monocyte abs 0.68 0.20 - 0.80 K/cumm [facility] Eosinophil abs 0.11 0.00 - 0.50 K/cumm [facility] Basophil abs 0.03 0.00 - 0.10 K/cumm [facility] Neutrophil pct 65.9 % [facility] Comment: Interpretive Data Percent cell count reference ranges are not reported, since discordance with absolute values may lead to misinterpretation of CBC data. Current Interpretive Data was last revised on 2017. Imm gran pct 0.2 % [facility] Comment: Interpretive Data Percent cell count reference ranges are not reported, since discordance with absolute values may lead to misinterpretation of CBC data. Current Interpretive Data was last revised on 2017. Lymphocyte pct 19.9 % [facility] Comment: [...] Eosinophil pct 1.9 % [facility] Comment: Interpretive Data Percent cell count reference ranges are not reported, since discordance with absolute values may lead to misinterpretation of CBC data. Current Interpretive Data was last revised on 2017. Basophil pct 0.5 % [facility] Comment: Interpretive Data Percent cell count reference ranges are not reported, since discordance with absolute values may lead to misinterpretation of CBC data. Current Interpretive Data was last revised on 2017. Blood 09/14/2024 5:50 PM CDT 09/14/2024 6:10 PM CDT Isabella Reddy MD LAB BLOOD ORDERABLES Final Result [facility] [place] [address] * (ABNORMAL) Thyroid Function [place] (09/14/2024 5:50 PM CDT) TSH 4.68(H) 0.30 - 4.20 mcIUnit/mL Blood 09/14/2024 5:50 PM CDT 09/14/2024 6:10 PM CDT Isabella Reddy MD LAB BLOOD ORDERABLES Final Result [facility] [place] [address] * (ABNORMAL) CBC with auto differential (09/14/2024 5:50 PM CDT) [facility] WBC 5.87 3.80 - 9.90 K/cumm Hgb 11.1(L) 13.0 - 17.5 g/dL [facility] Hct 35.0(L) 38.9 - 50.3 % [facility] Plt 297 150 - 400 K/cumm [facility] MPV 9.7 9.1 - 12.3 fL [facility] RBC 3.88(L) 4.30 - 5.80 M/cumm [facility] MCV 90.2 81.3 - 96.4 fL [facility] MCH 28.6 27.1 - 33.3 pg [facility] MCHC 31.7(L) 32.3 - 35.7 g/dL [facility] RDW CV 15.9(H) 11.1 - 14.9 % [facility] RDW SD 52.8(H) 35.7 - 48.1 fL [facility] NRBC abs 0.00 0.00 - 0.01 K/cumm [facility] Blood 09/14/2024 5:50 PM CDT 09/14/2024 6:10 PM CDT Isabella Reddy MD LAB BLOOD ORDERABLES Final Result [facility] [place] [address] * (ABNORMAL) Hepatitis B core antibody, total Blood (09/14/2024 5:50 PM CDT) [facility] Hep B core IgG/IgM Reactive( A) Nonreactive Blood 09/14/2024 5:50 PM CDT 09/14/2024 6:10 PM CDT Isabella Reddy MD LAB MICROBIOLOGY - G ENERAL ORDERABLES Final Result Performing Organization Address City/[facility]/ZIP Co de Phone Number [facility] [place] [address] * (ABNORMAL) Vitamin D 25 hydroxy (09/14/2024 5:50 PM CDT) Pathologist [facility] Vitamin D 25-OH 23(L) 30 - 80 ng/mL Blood 09/14/2024 5:50 PM CDT 09/14/2024 6:10 PM CDT Isabella Reddy MD LAB BLOOD ORDERABLES Final Result Performing Organization Address [facility] Co de Phone Number [facility] [place] [address] * Hepatitis B surface antibody (immune status) Blood (09/14/2024 5:50 PM CDT) Pathologist [facility] HBsAb (immune status) Reactive Comment:This result is consi stent with immunity to Hepatitis B Virus when used in the setting of routine screening. Current interpretive data was last revised on 22 HBsAb (immune status) index 4,422.0 mIUnits/m L [facility] Blood 09/14/2024 5:50 PM CDT 09/14/2024 6:10 PM CDT Isabella Reddy MD LAB MICROBIOLOGY - G ENERAL ORDERABLES Final Result Performing Organization Address City/[facility] Co de Phone Number [facility] [place] [address] * Hepatitis B Surface Antigen Blood (09/14/2024 5:50 PM CDT) Pathologist [facility] HepBsAg Nonreactive Nonreactive Blood 09/14/2024 5:50 PM CDT 09/14/2024 6:10 PM CDT Result [facility] Isabella Reddy MD LAB MICROBIOLOGY - G ENERAL ORDERABLES Final Result Performing Organization Address City/[facility]/ZIP Co de Phone Number [facility] [place] [address] * T4, free (09/14/2024 5:50 PM CDT) Pathologist [facility] Free T4 1.08 0.90 - 1.70 ng/dL Blood 09/14/2024 5:5 0 PM CDT 09/14/2024 6:15 PM CDT Narrative [facility] - 09/14/2024 7:25 PM CDT This test was reflexed from a TSH result. Isabella Reddy MD LAB BLOOD ORDERABLES Final Result Performing Organization Address [facility] de Phone Number [facility] [place] [address] * (ABNORMAL) Hemoglobin A1c (09/14/2024 5:50 PM CDT) [facility] Hgb A1C 5.8(H) 4.0 - 5.6 % Estimated Average Glucose 120 mg/dL [facility] Comment: The ADA recommends reporting an estimated Average Glucose (eAG) with all Hemoglobin A1c results using the equation derived from a study of 507 normal and diabetic adults. Minority populations were underrepresented and children were not included. (Diabetes Care 2020; 43(S1): S66-S76). The eAG is not equivalent to a fasting glucose. Blood 09/14/2024 5:50 PM CDT 09/14/2024 6:10 PM CDT Result [facility] Isabella Reddy MD LAB BLOOD ORDERABLES Final Result Performing Organization Address [facility] Co de Phone Number [facility] [place] [address] * Lipid panel (09/14/2024 5:50 PM CDT) [...] revised on 2018. Triglycerides 92 <=149 mg/dL [facility] Comment: Interpretive Data Ages < or = [...] revised on 2018. HDL 62 >=40 mg/dL [facility] Comment: Interpretive Data Ages < or = [...] on 2018. LDL, calculated 87 <=129 mg/dL [facility] Comment: Interpretive Data Ages < or = [...] revised on 2024. Non-HDL Cholesterol 104 mg/dL [facility] Comment: Interpretive Data Ages < or [...] last revised on 2018. Chol/HDL ratio 3 [facility] Blood 09/14/2024 5:50 PM CDT 09/14/2024 6:10 PM CDT Isabella Reddy MD LAB BLOOD ORDERABLES Final Result [facility] Department [place] [address] * (ABNORMAL) Comprehensive metabolic panel (09/14/2024 5:50 PM CDT) Sodium 143 135 - 145 mmol/L Potassium, pl 3.8 3.3 - 4.9 mmol/L [facility] Chloride 106 97 - 110 mmol/L [facility] CO2 33(H) 22 - 32 mmol/L [facility] Anion gap 4 2 - 15 mmol/L [facility] BUN 17 6 - 25 mg/dL [facility] Creatinine 0.96 0.80 - 1.30 mg/dL [facility] Glucose 110 70 - 199 mg/dL [facility] Comment: Interpretive Data Fasting glucose >/= [...] 2022. Calcium 8.9 8.5 - 10.3 mg/dL [facility] Bilirubin, total 0.3 0.1 - 1.2 mg/dL [facility] Protein, pl 7.0 6.5 - 8.5 g/dL [facility] Albumin 3.9 3.5 - 5.0 g/dL [facility] Alk phos 99 40 - 130 Units/L [facility] ALT 19 7 - 55 Units/L [facility] AST 25 10 - 50 Units/L [facility] Blood 09/14/2024 5:50 PM CDT 09/14/2024 6:10 PM CDT Isabella Reddy MD LAB BLOOD ORDERABLES Final Result [facility] [place] [address] * SCAN - LABS (08/27/2024) Provider Scanning Final Result from Last 3 Months Insurance MEDICARE FOR LIFE MEDICARE FOR LIFE Care Teams Ultra Sound Technician Relationship Specialty Start Date End Date Mandeep Christine DO [address] [place] [address] PCP - General Internal Medicine 09/22/24 Gilbert Anderson MD Medical Oncologist/Java Programmer Hematology and Oncology 04/19/18
--- OUTSIDE RECORDS SUMMARY | 2024-11-10 15:23 | XMS_ITS | Encounter Summary ---
Author Organization [facility] Address [address] [place] [address] Phone Care Team Providers Care Telephone Clerks Supervisor Name Role Phone Gilbert Anderson MD Unavailable [phone] Brock Ulrich MD Primary Care Provider [phone] Mandeep Christine DO Primary Care Provider [phone]- [phone] Encounter Details Date Type Department Care Team [...] on file Legal Sex Male 9:32 PM DIGITAL MEDIA COORDINATOR Gender Identity Male 03/31/2023 8:02 AM [...] filedocumented in this encounter Care Teams Telephone Clerks Supervisor Relationship Specialty Start Date End Date Brock Ulrich MD PCP - General Family Practice 12/18/22 06/22/24 Mandeep Christine DO [address] [place] [address] PCP - General Internal Medicine 09/22/24 Gilbert Anderson MD Medical Oncologist/Online Marketing Specialist Hematology and Oncology 04/19/18 documented as of this encounter
--- OUTSIDE RECORDS SUMMARY | 2024-11-10 15:23 | XMS_ITS | Encounter Summary ---
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
--- OUTSIDE RECORDS SUMMARY | 2024-11-10 15:23 | XMS_ITS | Encounter Summary ---
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
[2024-11-10 15:34] LABS: CRP 0.9 mg/dL (<1.0); Magnesium 1.9 mg/dL (1.6-2.3)
[2024-11-10 15:41] LABS: Erythrocyte Sedimentation Rate 24 mm/hr (0-20)
[2024-11-10 15:45] LABS: Add Urine Microscopic? YES; Appearance Urine Turbid (Clear); Bacteria Urine 3+ /hpf; Bilirubin Urine Negative (Negative); Blood Urine Trace (Negative); Color Urine Yellow (Yellow); Glucose Urine UA Negative (Negative); Ketones Urine Trace mg/dL (Negative); Leukocyte Esterase Ur 3+ LEU/UL (Negative); Need Manual Microscopic Reviewed; Nitrate Urine Negative (Negative); Non Pathogenic Casts 0-2; Protein Urine 2+ mg/dL (Negative); RBC Urine 21-50 /hpf (0-2); Specific Grav Ur 1.028 (1.001-1.035); Squamous Epithelial Cell Urine Many /hpf (Few); WBC Urine 21-50 /hpf (0-3); pH Urine 5.5 (5.0-9.0)
[2024-11-10 17:02] VITALS: BP 137/73; PULSE 74; RESP 18; O2SAT 96
[2024-11-10] MEDS: PIPERACILLN/TAZ 3.375GM/NS50ML 3.375 GM/50 ML BAG IVPB (17:08)
[2024-11-10] MEDS: POTASSIUM CHLORIDE 20 MEQ ER TABLET 40 MEQ PO (18:11)
== END 2024-11-10 18:45 | disposition home or self-care (01) ==
PROVIDERS: Emergency Provider Physician Assistant; PCP Internal Medicine
DX: T81.83XA Persistent postprocedural fistula, initial encounter (principal); N39.0 Urinary tract infection, site not specified; I50.9 Heart failure, unspecified; I11.0 Hypertensive heart disease with heart failure; N40.0 Benign prostatic hyperplasia without lower urinary tract symptoms; D50.9 Iron deficiency anemia, unspecified; M19.90 Unspecified osteoarthritis, unspecified site; K21.9 Gastro-esophageal reflux disease without esophagitis; F03.90 Unspecified dementia, unspecified severity, without behavioral disturbance, psychotic disturbance, mood disturbance, and anxiety; Z85.820 Personal history of malignant melanoma of skin; Z87.891 Personal history of nicotine dependence; Z98.42 Cataract extraction status, left eye; Z98.41 Cataract extraction status, right eye; Z90.79 Acquired absence of other genital organ(s); Y83.8 Other surgical procedures as the cause of abnormal reaction of the patient, or of later complication, without mention of misadventure at the time of the procedure
CPT/HCPCS: 36415; 74177; 80053; 81001; 83690; 83735; 85025; 85652; 86140; 87040; 87070; 87075; 87077; 87186; 87205; 96365; 99284; A9270; J2543; Q9967

== ENCOUNTER 2024-12-02 21:27 | Emergency (ER) | payer MEDICARE, OTHER, SELFPAY ==
[2024-12-02 21:32] VITALS: BP 155/86; PULSE 83; RESP 18; TEMP 37.2; O2SAT 97
--- NOTE | 2024-12-02 22:23 | ED_ITS ---
HPI - General Adult General Chief complaint: Psychiatric Symptoms Stated complaint: AGGRESSIVE BEHAVIOR Time Seen by Provider: 12/02/24 21:58 History of Present Illness HPI narrative: Patient 79-year-old gentleman presents emergency department with chief complaint of aggressive behavior patient is resident of [facility] and was sent to the emergency department to evaluate for possible aggressive behavior after he was trying to talk to his through the glass screen the patient states he has no thoughts of harming himself or hurting anyone else Related Data Allergies Allergy/AdvReac Type Severity Reaction Status Date / Time venom-wasp Allergy Severe Swelling Verified 11/10/24 14:36 Sulfa (Sulfonamide Allergy Mild Rash Verified 11/10/24 14:36 Antibiotics) Review of Systems 2 Review of Systems: A 10 system review of systems was completed on the patient and is negative except for what is stated in the HPI. Nursing and ancillary documentation was reviewed. [facility] Past Medical History Medical History CHF (congestive heart failure) BMI 37.0-37.9, adult Melanoma Arthritis Mild dementia Benign prostatic hyperplasia Benign essential hypertension Chronic GERD Iron deficiency anemia Surgical History Surgical History History of incision and drainage 08/24/24 Incision and drainage of complex abdominal wall extending to the fascia and rectus muscle Dr. Sanches History of melanoma excision History of bilateral cataract extraction Status post repair of paraesophageal diaphragmatic hernia History of right inguinal hernia repair History of transurethral resection of prostate Family History Family History Mother Hypertension Family history of coronary artery disease Heart disease Father Family history of primary malignant neoplasm of liver Sibling No problems noted. Sibling No problems noted. Social History Social History Social History: Surrogate medical decision maker: Rula Watson, spouse. Code status: Full code. Smoking packs per day: 1 Smoking cigarettes per day: 20.0 Years smoked: 50 Smoking pack-years: 50.00 Smoking status: Former smoker Second hand tobacco smoke exposure: No Alcohol intake: unknown Drinks per week: 3 Substance use: unknown Substance use type: does not use Do You Feel Safe in your Home?: Yes Lack of Transportation: No Lack of Food: Never True Current Housing: I Have Housing Concerned About Future Housing: No Difficulty Paying Gas/Electric Bills: No Difficulty Paying for Meds: No Currently Unemployed: No Education: Bachelor's Degree Difficulty w/ Childcare or Family Care: No Living arrangements: with family Additional living arrangements comments: Lives with spouse in [place]. 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 Gender identity (if verbalized by the patient): Male Spiritual care concerns: No Exam 2 Narrative: GENERAL: Well-appearing, well-nourished, and in no acute distress. HEAD: Normocephalic, atraumatic. EYES: PERRLA and EOMI. ENT: Nares clear, no rhinorrhea or epistaxis. Mucous membranes moist. NECK: Supple. CHEST: Clear to auscultation. No respiratory distress. HEART: Regular rate and rhythm. No murmur heard. Normal peripheral pulses. ABDOMEN: Soft, nontender, nondistended, normal active bowel sounds. EXTREMITIES: Normal range of motion. No edema. SKIN: Warm, dry, no rash. NEURO: No focal deficits. Alert and oriented x3. PSYCH: Normal mood and affect. Course Vital Signs Vital signs: Vital Signs Temperature 37.2 C 12/02/24 21:32 Pulse Rate 83 12/02/24 21:32 Respiratory Rate 18 12/02/24 21:32 Blood Pressure 155/86 H 12/02/24 21:32 Pulse Oximetry 97 12/02/24 21:32 Oxygen Delivery Room Air 12/02/24 21:32 Temperature 37.2 C 12/02/24 21:32 Pulse Rate 83 12/02/24 21:32 Respiratory Rate 18 12/02/24 21:32 Blood Pressure 155/86 H 12/02/24 21:32 Pulse Oximetry 97 12/02/24 21:32 Oxygen Delivery Room Air 12/02/24 21:32 Medical Decision Making [facility] Narrative Medical decision making narrative: Patient medically cleared for psychiatric evaluation referral transferred admission The patient was seen by crisis and cleared for discharge Vital Signs Vital Signs: Vital Signs Temperature 37.2 C 12/02/24 21:32 Pulse Rate 83 12/02/24 21:32 Respiratory Rate 18 12/02/24 21:32 Blood Pressure 155/86 H 12/02/24 21:32 Pulse Oximetry 97 12/02/24 21:32 Oxygen Delivery Room Air 12/02/24 21:32 Temperature 37.2 C 12/02/24 21:32 Pulse Rate 83 12/02/24 21:32 Respiratory Rate 18 12/02/24 21:32 Blood Pressure 155/86 H 12/02/24 21:32 Pulse Oximetry 97 12/02/24 21:32 Oxygen Delivery Room Air 12/02/24 21:32 Lab Data 12/02/24 22:29 12/02/24 22:29 Labs: Lab Results 12/02/24 12/02/24 Range/Units 22:29 22:58 WBC 6.1 (4.5-10.0) K/mm3 RBC 3.32 L (4.6-6.20) M/mm3 Hgb 9.5 L (14.0-18.0) g/dL Hct 30.5 L (42.0-52.0) % MCV 91.9 (80-100) fl MCH 28.6 (26-34) pg MCHC 31.1 L (32-36) g/dl RDW 15.9 H (11.5-14.5) % Plt Count 361 D (150-375) k/mm3 MPV 9.3 (7.4-10.4) fl Immature Gran % (Auto) 0.8 H (0-0.5) % Neut % (Auto) 62.7 (45.5-73.1) % Lymph % (Auto) 22.0 (18.3-44.2) % [place] % (Auto) 9.7 H (2.6-8.5) % Eos % (Auto) 4.1 (0-4.4) % Baso % (Auto) 0.7 (0.2-1.2) % Lymph # (Auto) 1.34 (0.9-3.2) K/mm3 [place] # (Auto) 0.6 (0.1-0.6) K/mm3 Eos # (Auto) 0.3 (0-0.3) K/mm3 Baso # (Auto) 0.0 (0.0-0.1) K/mm3 Abs Immat Gran (auto) 0.05 H (0.00-0.031) K/mm3 Absolute Neuts (auto) 3.8 (1.3-6.7) K/mm3 Absolute Nucleated RBC 0.000 (0.0-0.012) K/mm3 Nucleated RBC % 0.0 (0.0-0.2) % Sodium 140 (137-145) mmol/L Potassium 3.6 (3.4-5.0) mmol/L Chloride 106 (98-107) mmol/L Carbon Dioxide 26 (22-30) mmol/L Anion Gap 8 (4-12) mmol/L BUN 19 (9-20) mg/dL Creatinine 0.97 (0.7-1.3) mg/dL Estim Creat Clear Calc 53 ml/min Estimated GFR > 60 (59 - ) Glucose 103 (65-110) mg/dL Calcium 8.9 (8.4-10.2) mg/dL Total Bilirubin 0.3 (0.2-1.3) mg/dL AST 23 (17-59) U/L ALT 15 (6-50) U/L Alkaline Phosphatase 94 (38-126) U/L Total Protein 7.3 (6.3-8.2) g/dL Albumin 4.2 (3.5-5.1) g/dL TSH (Reflex) 2.810 (0.465-4.68) uIU/mL Free T4 0.98 (0.78-2.19) ng/dL Urine Color Yellow (Yellow) Urine Appearance Clear (Clear) Urine pH 6.0 (5.0-9.0) Ur Specific [place] 1.014 (1.001-1.035) Urine Protein Negative (Negative) mg/dL Urine Glucose (UA) Negative (Negative) mg/dL Urine Ketones Negative (Negative) mg/dL Ur Blood (Man) Negative (Negative) Urine Nitrate Negative (Negative) Urine Bilirubin Negative (Negative) Urine Urobilinogen 0.2 (<2.0) mg/dL Leukocyte Esterase Rfl Negative (Negative) SHAHEED/UL Urine Opiates Screen Negative (Negative) Urine Methadone Screen Negative (Negative) Ur Barbiturates Screen Negative (Negative) Ur Phencyclidine Scrn Negative (Negative) Ur Amphetamine Screen Negative (Negative) U Benzodiazepines Scrn Negative (Negative) Urine Cocaine Screen Negative (Negative) U Cannabinoids Screen Negative (Negative) Ethyl Alcohol < 10 (<10) mg/dL Influenza A (RT-PCR) Negative (Negative) Influenza B (RT-PCR) Negative (Negative) RSV (RT-PCR) Negative (Negative) SARS-CoV-2 RNA (RT-PCR) Negative (Negative) Discharge Plan Discharge Clinical Impression: Dementia Qualifiers: Dementia type: unspecified type Dementia severity: unspecified severity D ementia behavioral or psychological symptom: unspecified whether behavioral, psychotic, or mood disturbance or anxiety Qualified Code(s): F03.90 - Unspecified dementia, unspecified severity, without behavioral disturbance, psychotic disturbance, mood disturbance, and anxiety Patient Disposition: GA Retirement/Asst Living Condition: Stable Instructions: Antibiotic Form, Dementia (ED) Additional Instructions: You were seen by crisis in cleared for discharge Patient Language: Iraqi Prescriptions: No Action levofloxacin 500 mg tablet 500 mg PO DAILY Qty: 14 0RF nitrofurantoin macrocrystal 100 mg capsule 100 mg PO Q12H 5 Days Qty: 10 0RF Rx Instructions: must administer with a meal/food amoxicillin-pot clavulanate 875-125 mg tablet 1 tablet PO Q12H Qty: 15 1RF memantine 10 mg tablet 10 mg PO BID Qty: 180 1RF ferrous sulfate 325 mg (65 mg iron) tablet,delayed release (DR/EC) 325 mg PO BID Qty: 180 1RF Eliquis 5 mg tablet 5 mg PO BID Qty: 180 1RF bumetanide 1 mg tablet 1 mg PO DAILY Qty: 30 4RF buspirone 10 mg tablet 10 mg PO TID PRN (Reason: anxiety) Qty: 45 0RF sertraline 100 mg tablet 150 mg PO DAILY Qty: 135 1RF Patient Comments: QAM omeprazole 40 mg capsule,delayed release(DR/EC) 40 mg PO DAILY Qty: 90 1RF amoxicillin-pot clavulanate 875-125 mg tablet 1 tablet PO Q12H Qty: 42 0RF Follow-up/Referrals: Nanci,Mandeep Conklin DO [Primary Care Provider] - Time of Disposition: 00:51
[2024-12-02 22:36] LABS: Basophils Percent Auto 0.7 % (0.2-1.2); Eosinophils Absolute Auto 0.3 K/mm3 (0-0.3); Eosinophils Percent Auto 4.1 % (0-4.4); Hematocrit 30.5 % (42.0-52.0); Hemoglobin 9.5 g/dL (14.0-18.0); Immature Granulocyte Absolute 0.05 K/mm3 (0.00-0.031); Immature Granulocyte Percent A 0.8 % (0-0.5); Lymphocytes Absolute Auto 1.34 K/mm3 (0.9-3.2); Mean Corpuscular HGB Conc 31.1 g/dl (32-36); Mean Corpuscular Hemoglobin 28.6 pg (26-34); Mean Corpuscular Volume 91.9 fl (80-100); Mean Platelet Volume 9.3 fl (7.4-10.4); Monocytes Absolute Auto 0.6 K/mm3 (0.1-0.6); Monocytes Percent Auto 9.7 % (2.6-8.5); Neutrophils Absolute Auto 3.8 K/mm3 (1.3-6.7); Neutrophils Percent Auto 62.7 % (45.5-73.1); Platelet Count Result 361 k/mm3 (150-375); Red Blood Count 3.32 M/mm3 (4.6-6.20); Red Cell Distribution Width 15.9 % (11.5-14.5); White Blood Count 6.1 K/mm3 (4.5-10.0)
[2024-12-02 22:46] LABS: Alanine Aminotransferase 15 U/L (6-50); Albumin Level 4.2 g/dL (3.5-5.1); Alkaline Phosphatase 94 U/L (38-126); Anion Gap 8 mmol/L (4-12); Aspartate Amino Transferase 23 U/L (17-59); Bilirubin,Total 0.3 mg/dL (0.2-1.3); Blood Urea Nitrogen 19 mg/dL (9-20); Calcium 8.9 mg/dL (8.4-10.2); Carbon Dioxide 26 mmol/L (22-30); Chloride 106 mmol/L (98-107); Estimated CRCL calculation 53 ml/min; Estimated Glomerular Filt Rate > 60; Ethanol < 10 mg/dL (<10); Glucose 103 mg/dL (65-110); Potassium 3.6 mmol/L (3.4-5.0); Sodium 140 mmol/L (137-145); Total Protein 7.3 g/dL (6.3-8.2)
[2024-12-02 23:02] LABS: Free T4 Free Thyroxine 0.98 ng/dL (0.78-2.19)
[2024-12-02 23:05] LABS: Add Urine Microscopic? NO; Appearance Urine Clear (Clear); Bilirubin Urine Negative (Negative); Blood Urine Negative (Negative); Color Urine Yellow (Yellow); Glucose Urine UA Negative (Negative); Ketones Urine Negative (Negative); Leukocyte Esterase Ur Negative LEU/UL (Negative); Nitrate Urine Negative (Negative); Protein Urine Negative (Negative); Specific Grav Ur 1.014 (1.001-1.035); Urobilinogen Urine 0.2 mg/dL (<2.0)
[2024-12-02 23:12] LABS: Influenza A QL RT-PCR Negative (Negative); Influenza B QL RT-PCR Negative (Negative); RSV RNA, RT-PCR Negative (Negative); SARS-CoV-2 RNA PCR Negative (Negative)
[2024-12-02 23:20] LABS: Amphetamine Screen Urine Negative (Negative); Barbiturate Screen Urine Negative (Negative); Benzodiazepines Screen Urine Negative (Negative); Cannabinoid Screen Urine Negative (Negative); Cocaine Screen Urine Negative (Negative); Methadone Screen Urine Negative (Negative); Opiate Screen Urine Negative (Negative); Phencyclidine Screen Urine Negative (Negative)
[2024-12-03 02:43] VITALS: BP 155/86; PULSE 83; RESP 18; TEMP 37.2; O2SAT 97
== END 2024-12-03 02:45 ==
PROVIDERS: Emergency Provider Emergency Medicine; PCP Internal Medicine
DX: R45.6 Violent behavior (principal); F03.911 Unspecified dementia, unspecified severity, with agitation; I50.9 Heart failure, unspecified; I11.0 Hypertensive heart disease with heart failure; N40.0 Benign prostatic hyperplasia without lower urinary tract symptoms; K21.9 Gastro-esophageal reflux disease without esophagitis; D50.9 Iron deficiency anemia, unspecified; M19.90 Unspecified osteoarthritis, unspecified site; Z85.820 Personal history of malignant melanoma of skin; Z98.42 Cataract extraction status, left eye; Z98.41 Cataract extraction status, right eye; Z90.79 Acquired absence of other genital organ(s); Z87.891 Personal history of nicotine dependence; Z79.899 Other long term (current) drug therapy; Z79.01 Long term (current) use of anticoagulants
CPT/HCPCS: 36415; 80053; 80307; 81003; 82077; 84439; 84443; 85025; 87637; 99283

== ENCOUNTER 2024-12-07 09:27 | Inpatient (IN) | payer MEDICARE, OTHER, SELFPAY ==
--- NOTE | ~2024-12-07 | US_ITS ---
EXAM: RENAL ULTRASOUND HISTORY: GLORIA COMPARISON: 11/10/2024, CT examination of the abdomen and pelvis FINDINGS: RIGHT KIDNEY: 12.4 x 5.3 x 5.8 cm. The parenchyma of the right kidney is increased in echogenicity. No hydronephrosis or renal calculi. LEFT KIDNEY: 13.4 x 5.5 x 5.9 cm No hydronephrosis or renal calculi. Redemonstration of a well-circumscribed anechoic avascular focus exophytic from the upper pole of the posterior left kidney, consistent with a simple cyst. This focus measures 6.2 x 4.9 x 5.5 cm. The remainder of the parenchyma of the left kidney is otherwise increased in echogenicity. BLADDER: Decompressed, limiting its evaluation. IMPRESSION: No hydronephrosis or renal calculi. Findings suggesting medical renal disease. Simple cyst within the upper pole of the left kidney, for which no further follow-up is needed. Reviewed, dictated and finalized at location A. IMPRESSION: No hydronephrosis or renal calculi. Findings suggesting medical renal disease. Simple cyst within the upper pole of the left kidney, for which no further foll ow-up is needed.
--- NOTE | ~2024-12-07 | CT_ITS ---
CT brain wo con Ordering provider: Esau Hooper MD History: 79 years Male with . Confusion . Comparison: None. Technique: CT of the head without contrast. Radiation reduction technique utilized.The dose-length product was 756.67 mGy-cm. FINDINGS: BRAIN PARENCHYMA AND CSF SPACES: Moderate leukoaraiosis and diffuse cortical atrophy. Moderate athero matous disease. No midline shift, mass effect or hemorrhage. The brain parenchyma and CSF spaces are otherwise norm al. VISUALIZED PARANASAL SINUSES: Well aerated. MASTOIDS: Well aerated. BONES: The bones appear intact. SOFT TISSUES: Visualized nasopharynx is normal. Superficial soft tissues are normal. IMPRESSION: No acute intracranial findings. Reviewed, dictated and finalized at location A.
--- NOTE | 2024-12-07 09:31 | ECG_ITS ---
Test Date: 2024-12-07 10:10:44 Measurements Intervals [place] Rate: 70 P: 64 AK: 129 QRS: 4 QRSD: 106 T: 40 QT: 414 QTc: 447 Interpretive Statements SINUS RHYTHM WITH OCCASIONAL SUPRAVENTRICULAR PREMATURE COMPLEXES DELAYED PRECORDIAL R/S TRANSITION BASELINE ARTIFACT- I, II, AVR BORDERLINE ECG No previous ECG available for comparison Electronically Signed On 12-07-2024 10:57:51 CDT by Karan Andersen D.O.
[2024-12-07 10:21] LABS: Hematocrit 34.2 % (42.0-52.0); Hemoglobin 10.4 g/dL (14.0-18.0); Immature Granulocyte Percent A 0.6 % (0-0.5); Lymphocytes Absolute Auto 0.77 K/mm3 (0.9-3.2); Mean Corpuscular HGB Conc 30.4 g/dl (32-36); Mean Corpuscular Hemoglobin 28.5 pg (26-34); Mean Corpuscular Volume 93.7 fl (80-100); Nucleated Red Blood Cells Absolute Auto 0.000 K/mm3 (0.0-0.012); Nucleated Red Blood Cells Perc 0.0 % (0.0-0.2); Platelet Count Result 376 k/mm3 (150-375); Red Blood Count 3.65 M/mm3 (4.6-6.20); White Blood Count 5.2 K/mm3 (4.5-10.0)
[2024-12-07 10:36] LABS: Alanine Aminotransferase 18 U/L (6-50); Albumin Level 4.1 g/dL (3.5-5.1); Alkaline Phosphatase 82 U/L (38-126); Anion Gap 9 mmol/L (4-12); Aspartate Amino Transferase 27 U/L (17-59); Bilirubin,Total 0.5 mg/dL (0.2-1.3); Blood Urea Nitrogen 17 mg/dL (9-20); Calcium 9.2 mg/dL (8.4-10.2); Carbon Dioxide 27 mmol/L (22-30); Chloride 104 mmol/L (98-107); Estimated Glomerular Filt Rate > 60; Glucose 104 mg/dL (65-110); Magnesium 2.0 mg/dL (1.6-2.3); Potassium 4.1 mmol/L (3.4-5.0); Sodium 140 mmol/L (137-145); Total Protein 7.3 g/dL (6.3-8.2)
[2024-12-07 10:40] LABS: INR 1.1; Prothrombin Time 13.7 Seconds (11.1-14.7)
--- NOTE | 2024-12-07 12:12 | PC.NURSE ---
This patient, Rodney Watson, was admitted to [facility] Surg Room 316-01 at 0850. Patient/family oriented to hospital policies and general routines including ID bracelet, bed and alarms, visiting hours, pain management, procedures, bathroom and other care routines, personal items, smoking policy, room service/diet, and visiting hours. Information on how to activate the Rapid Response Team has been discussed. Patient/Family are encouraged to report perceived risks to care and to ask questions if they do not understand what they are told or what they should do.
--- NOTE | 2024-12-07 12:21 | P.HP_ITS ---
H&P: HPI History of Present Illness Date/Time: 12/07/24 12:21 Chief Complaint: Diverticulitis with perforation and abscess, colocutaneous fistula Narrative: This is an 79-year-old man who presents to the hospital in preparation for sigmoid colectomy. He has been hospitalized previously for perforated diverticulitis with abscess. He has undergone percutaneous drainage of the abscess as well as incision and drainage of a superficial abdominal wall abscess. The patient has significant dementia which has limited his compliance both during hospitalizations and at discharge. Non operative management has been attempted as well as long-term antibiotics and repeat drainage procedures, but patient has pulled his drain out previously. He continues to have drainage from a wound on his abdomen which likely signifies a fistulous communication to the colon. He also has a history of prior left inguinal hernia repair with mesh and the abscess appears to be within or near the location of the mesh. Currently he is doing well and has maintained a normal appetite. He denies any abdominal pain or fevers currently. He is being admitted to undergo bowel prep today in preparation for surgery tomorrow. Review of Systems Review of Systems: All systems reviewed & are unremarkable except as noted in HPI and below Constitutional: Constitutional: Denies chills, Denies fever(s), Denies headache(s) and Denies weight loss Eyes: Eyes: Denies change in vision ENT: Denies dizziness, Denies headache(s), Denies neck mass and Denies throat swelling Cardiovascular: Cardiovascular: Denies chest pain, Denies lightheadedness and Denies dyspnea Respiratory: Respiratory: Denies cough, Denies dyspnea and Denies wheezing Gastrointestinal: Gastrointestinal: Denies abdominal pain, Denies change in bowel habits, Denies nausea and Denies vomiting Genitourinary: Genitourinary: Denies hematuria and Denies dysuria Musculoskeletal: Musculoskeletal: Reports as per HPI Integumentary/Breasts: Skin/Breast: Reports as per HPI Neurologic: Denies dizziness and Denies headache(s) Psychiatric: Psychiatric: Reports as per HPI and Reports memory loss Allergic/Immunologic: Allergic/Immunologic: Denies throat swelling and Denies wheezing PMFSH Past Medical History Medical History CHF (congestive heart failure) BMI 37.0-37.9, adult Melanoma Arthritis Mild dementia Benign prostatic hyperplasia Benign essential hypertension Chronic GERD Iron deficiency anemia Surgical History Surgical History History of incision and drainage 08/24/24 Incision and drainage of complex abdominal wall extending to the fascia and rectus muscle Dr. Sanches History of melanoma excision History of bilateral cataract extraction Status post repair of paraesophageal diaphragmatic hernia History of right inguinal hernia repair History of transurethral resection of prostate Family History Family History Mother Hypertension Family history of coronary artery disease Heart disease Father Family history of primary malignant neoplasm of liver Sibling No problems noted. Sibling No problems noted. Social History Social History Social History: Surrogate medical decision maker: Rula Watson, spouse. Code status: Full code. Smoking packs per day: 1.5 Smoking cigarettes per day: 30.0 Years smoked: 50 Smoking pack-years: 75.00 Smoking status: Former smoker Tobacco type: cigarettes Second hand tobacco smoke exposure: No Alcohol intake: unknown Drinks per week: 3 Substance use: unknown Substance use type: does not use Do You Feel Safe in your Home?: Yes Lack of Transportation: No Lack of Food: Never True Current Housing: I Have Housing Concerned About Future Housing: No Difficulty Paying Gas/Electric Bills: No Difficulty Paying for Meds: No Currently Unemployed: No Education: Bachelor's Degree Difficulty w/ Childcare or Family Care: No Living arrangements: with family Additional living arrangements comments: Lives with spouse in [place]. 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 Gender identity (if verbalized by the patient): Male Spiritual care concerns: No Meds Home Medications and Allergies Home Medications ?Medication ?Instructions ?Recorded ?Confirmed ?Type memantine 10 mg tablet 10 mg PO BID #180 tabs 04/17/24 12/07/24 Rx ferrous sulfate 325 mg (65 mg 325 mg PO BID #180 tabs 06/21/24 12/07/24 Rx iron) tablet,delayed release bumetanide 1 mg tablet 1 mg PO DAILY #30 tabs 07/24/24 12/07/24 Rx buspirone 10 mg tablet 10 mg PO TID PRN anxiety #45 tabs 08/03/24 12/07/24 Rx sertraline 100 mg tablet 150 mg (1.5 x 100 mg) PO DAILY 08/17/24 12/07/24 Rx #135 tabs levofloxacin 500 mg tablet 500 mg PO DAILY #14 tabs 09/11/24 12/07/24 Rx omeprazole 40 mg capsule,delayed 40 mg PO DAILY #90 caps 10/06/24 12/07/24 Rx release amoxicillin 875 mg-potassium 1 tablet PO Q12H #15 tabs 10/15/24 12/07/24 Rx clavulanate 125 mg tablet amoxicillin 875 mg-potassium 1 tablet PO Q12H #42 tabs 10/17/24 12/07/24 Rx clavulanate 125 mg tablet nitrofurantoin macrocrystal 100 mg 100 mg PO Q12H 5 days #10 caps 11/10/24 12/07/24 Rx capsule acetaminophen 325 mg tablet 650 mg PO QID PRN fever or pain 12/07/24 12/07/24 History amlodipine 5 mg tablet 5 mg PO DAILY 12/07/24 12/07/24 History apixaban 5 mg tablet (Eliquis) 2.5 mg PO BID 12/07/24 12/07/24 History brexpiprazole 1 mg tablet (Rexulti) 1 mg PO DAILY 12/07/24 12/07/24 History cholecalciferol (vitamin D3) 125 125 mcg PO DAILY 12/07/24 12/07/24 History mcg (5,000 unit) capsule furosemide 20 mg tablet 20 mg PO DAILY 12/07/24 12/07/24 History hydroxyzine HCl 25 mg tablet 25 mg PO Q8H 12/07/24 12/07/24 History loperamide 2 mg capsule 2 mg PO Q6H PRN loose stool 12/07/24 12/07/24 History mirtazapine 7.5 mg tablet 7.5 mg PO HS 12/07/24 12/07/24 History polyethylene glycol 3350 17 17 g PO DAILY PRN constipation 12/07/24 12/07/24 History gram/dose oral powder Allergies Allergy/AdvReac Type Severity Reaction Status Date / Time venom-wasp Allergy Severe Swelling Verified 11/10/24 14:36 Sulfa (Sulfonamide Allergy Mild Rash Verified 11/10/24 14:36 Antibiotics) Vital Signs Vital Signs - 24 hr 12/07/24 09:59 Oxygen Delivery Room Air Exam Const: General: no acute distress and alert Orientation/consciousness: oriented to person and oriented to place HENMT: Head: normocephalic and atraumatic Ears: hearing grossly normal bilaterally Face/Nose/Sinus: Normal nares present Mouth: Yes Normal oral and palatal mucosa present Eyes: Periorbital: periorbital findings normal Sclera: sclerae normal EOM: EOMs intact bilaterally Neck: Neck: normal visual inspection, no lymphadenopathy and trachea midline Chest: Chest palpation & inspection: normal inspection of the chest Resp: Effort & Inspection: normal respiratory effort Auscultation: clear to auscultation bilaterally Cardio: Jugular venous distension: no JVD Rate: regular rate Rhythm: regular rhythm Heart sounds: S1 normal heart sound present and S2 normal heart sound present Peripheral pulses: Peripheral pulses 2+ throughout GI: Inspection: normal to inspection GI Palp: Yes Soft to palpation, No Tenderness to palpation present (GI), No Guarding due to palpation present (GI) and No Rebound tenderness present Percussion: Yes normal to percussion Auscultation: normal bowel sounds Other: Midline infraumbilical wound with scant purulence drainage. No surrounding erythema or tenderness to palpation. : General: Yes no CVA tenderness Back/Spine/Pelvis: Back: no CVA tenderness Neuro: General: patient oriented x3, no focal motor deficits and CN's II-XI intact bilaterally Cognition (Neuro): normal cognition Speech: normal speech Motor exam (neuro): 5/5 motor strength present throughout Extrem: General: capillary refill normal and no clubbing, cyanosis or edema H&P: Results Labs Labs: Short CBC 12/07/24 Range/Units 09:53 WBC 5.2 (4.5-10.0) K/mm3 Hgb 10.4 L (14.0-18.0) g/dL Hct 34.2 L (42.0-52.0) % Plt Count 376 H (150-375) k/mm3 BMP 12/07/24 09:53 Sodium 140 Potassium 4.1 Chloride 104 Carbon Dioxide 27 BUN 17 Creatinine 0.80 Glucose 104 Calcium 9.2 Liver Function 12/07/24 Range/Units 09:53 Total Bilirubin 0.5 (0.2-1.3) mg/dL AST 27 (17-59) U/L ALT 18 (6-50) U/L Alkaline Phosphatase 82 (38-126) U/L Albumin 4.1 (3.5-5.1) g/dL Assessment and Plan Assessment and plan (1) Abscess of sigmoid colon due to diverticulitis: Code(s): K57.20 - Diverticulitis of large intestine with perforation and abscess without bleeding Status: Chronic Assessment and Plan: * Patient is being admitted today to undergo bowel prep for planned sigmoid colectomy tomorrow. He has significant dementia and limited assistance at his current memory care facility and is unable to perform a bowel prep on his own. Orders have been placed for clear liquid diet today and beginning the mechanical and antibiotic bowel prep starting this afternoon. I have had thorough discussions with the family during previous office visits and over the phone about difficulty of treating patient without ultimately planning to proceed with surgery. We have attempted percutaneous drainage of abscesses as well as incision and drainage of the abdominal wall abscess in the past. 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 I have discussed options of comfort measures and hospice evaluation versus proceeding with surgery. Family is now wanting to proceed with surgery. I have recommended open sigmoid colectomy, possible ostomy, removal of old mesh. I have discussed the procedure, risks, benefits, and alternatives. Questions were answered. The enterostomal nurse has been consulted for preoperative site marking. Will plan to proceed with surgery tomorrow as scheduled. 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 Will resume DVT prophylaxis postoperatively and started full anticoagulation once patient is tolerating a solid diet. (4) Benign essential hypertension: Code(s): I10 - Essential (primary) hypertension Status: Acute (5) CHF (congestive heart failure): Code(s): I50.9 - Heart failure, unspecified Status: Acute (6) Dementia: Qualifiers: Dementia type: unspecified type Dementia severity: unspecified severity Dementia behavioral or psychological symptom: unspecified whether behavioral, psychotic, or mood disturbance or anxiety Qualified Code(s): F03.90 - Unspecified dementia, unspecified severity, without behavioral disturbance, psychotic disturbance, mood disturbance, and anxiety Code(s): F03.90 - Unspecified dementia, unspecified severity, without behavioral disturbance, psychotic disturbance, mood disturbance, and anxiety Status: Chronic
[2024-12-07 14:20] VITALS: BP 118/76; PULSE 73; RESP 16; TEMP 36.5; O2SAT 99
[2024-12-07] MEDS: NEOMYCIN SULFATE 500 MG TAB 1000 MG PO ×3 (14:28→23:03)
[2024-12-07] MEDS: ERYTHROMYCIN 250 MG TABLET 1000 MG PO ×3 (14:42→23:03)
[2024-12-07] MEDS: BISACODYL 5 MG TABLET EC 10 MG PO ×2 (15:41→20:46)
--- NOTE | 2024-12-07 15:59 | P.CONIM_ITS ---
Assessment and Plan Assessment and plan (1) Dementia: Qualifiers: Dementia type: unspecified type Dementia severity: unspecified severity Dementia behavioral or psychological symptom: unspecified whether behavioral, psychotic, or mood disturbance or anxiety Qualified Code(s): F03.90 - Unspecified dementia, unspecified severity, without behavioral disturbance, psychotic disturbance, mood disturbance, and anxiety Code(s): F03.90 - Unspecified dementia, unspecified severity, without behavioral disturbance, psychotic disturbance, mood disturbance, and anxiety Status: Chronic Assessment and Plan: * Condition chronic and currently stable. * Recommend continuation of pt's medications of memantine 10 mg po daily and Rexulti 1 mg po daily. * Provide for safety. (2) Iron deficiency anemia: Qualifiers: Iron deficiency anemia type: unspecified iron deficiency Qualified Code(s): D50.9 - Iron deficiency anemia, unspecified Code(s): D50.9 - Iron deficiency anemia, unspecified Status: Chronic Assessment and Plan: * Chronic in nature. * Baseline Hgb is between 9.0-10.0. * Current Hgb is 10.4. * Continue supplemental Iron at 325 mg po BID. (3) Chronic anticoagulation: Code(s): Z79.01 - correction (current) use of anticoagulants Status: Chronic Assessment and Plan: * Secondary to hx of PE's. * Continue to hold Eliquis currently in the setting of surgery tomorrow. * Recommend resumption of Eliquis when OK with surgery. * SCD's required in meantime for DVT prophylaxis. (4) Benign essential hypertension: Code(s): I10 - Essential (primary) hypertension Status: Chronic Assessment and Plan: * Continue to monitor and trend VS w/BP. * Current BP trend is stable with SBP ranging 1-teens to 150s and DBP ranging 70s-80s * Continue current home medications of Amlodipine 5 mg po daily (5) CHF (congestive heart failure): Code(s): I50.9 - Heart failure, unspecified Status: Chronic Assessment and Plan: * Last echocardiogram dated June 02, 2024 showing a normal left ventricular systolic function with EF 55-60% and grade 1 diastolic dysfunction * Continue current home medications including Bumex 1 mg p.o. daily * Daily weight * Accurate Intake and output. * Does not appear to be in acute exacerbation. * Cardiac diet when able to tolerate solid foods. (6) Diabetes mellitus: Code(s): E11.9 - Type 2 diabetes mellitus without complications Status: Chronic Assessment and Plan: * Check glucose a.c. and HS * Not currently on any home medications. * Check A1c if not already performed * Consider addition sliding scale insulin pending results of A1c to obtain tight glucose control to allow for healing post colectomy. * Diabetic diet when able to tolerate solid foods. (7) Colocutaneous fistula: Code(s): K63.2 - Fistula of intestine Status: Chronic Assessment and Plan: * Patient scheduled for colectomy tomorrow per general surgery. (8) Abscess of sigmoid colon due to diverticulitis: Code(s): K57.20 - Diverticulitis of large intestine with perforation and abscess without bleeding Status: Chronic Assessment and Plan: * Patient scheduled for colectomy tomorrow per general surgery. HPI Date of Consult Consult date: 12/07/24 Requesting Physician: Segundo Sanches DO Primary Care Provider: Mandeep Christine, DO Consult Narrative Narrative: Rodney Watson is a 79 year old male with history of diverticulitis with perforation abscess to is status post conservative management attempt who is now scheduled for a sigmoid colectomy tomorrow by Dr. Sanches. Patient has past medical history of dementia, hypertension, heart failure, iron deficiency anemia, arthritis and BPH and hospitalist service has been consulted for assistance with medical management. Patient was examined at the bedside today with his daughter present to help answer questions. Patient does not give any meaningful information as it is clear he has a advanced degree of dementia. He has and will continue to follow along in the postoperative with General surgery. Thank you for the consult and allowing us to assist in the care for your patient. Review of Systems 2 Review of Systems: Daughter serves as primary source information ROS unobtainable: Yes unobtainable due to mental status PMFSH Past Medical History Medical History CHF (congestive heart failure) BMI 37.0-37.9, adult Melanoma Arthritis Mild dementia Benign prostatic hyperplasia Benign essential hypertension Chronic GERD Iron deficiency anemia Surgical History Surgical History History of incision and drainage 08/24/24 Incision and drainage of complex abdominal wall extending to the fascia and rectus muscle Dr. Sanches History of melanoma excision History of bilateral cataract extraction Status post repair of paraesophageal diaphragmatic hernia History of right inguinal hernia repair History of transurethral resection of prostate Family History Family History Mother Hypertension Family history of coronary artery disease Heart disease Father Family history of primary malignant neoplasm of liver Sibling No problems noted. Sibling No problems noted. Social History Social History Social History: Surrogate medical decision maker: Rula Watson, spouse. Code status: Full code. Smoking packs per day: 1.5 Smoking cigarettes per day: 30.0 Years smoked: 50 Smoking pack-years: 75.00 Smoking status: Former smoker Tobacco type: cigarettes Second hand tobacco smoke exposure: No Alcohol intake: unknown Drinks per week: 3 Substance use: unknown Substance use type: does not use Do You Feel Safe in your Home?: Yes Lack of Transportation: No Lack of Food: Never True Current Housing: I Have Housing Concerned About Future Housing: No Difficulty Paying Gas/Electric Bills: No Difficulty Paying for Meds: No Currently Unemployed: No Education: Bachelor's Degree Difficulty w/ Childcare or Family Care: No Living arrangements: with family Additional living arrangements comments: Lives with spouse in [place]. 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 Gender identity (if verbalized by the patient): Male Spiritual care concerns: No Meds Home Medications and Allergies Home Medications ?Medication ?Instructions ?Recorded ?Confirmed ?Type memantine 10 mg tablet 10 mg PO BID #180 tabs 04/17/24 12/07/24 Rx ferrous sulfate 325 mg (65 mg 325 mg PO BID #180 tabs 06/21/24 12/07/24 Rx iron) tablet,delayed release bumetanide 1 mg tablet 1 mg PO DAILY #30 tabs 07/24/24 12/07/24 Rx buspirone 10 mg tablet 10 mg PO TID PRN anxiety #45 tabs 08/03/24 12/07/24 Rx sertraline 100 mg tablet 150 mg (1.5 x 100 mg) PO DAILY 08/17/24 12/07/24 Rx #135 tabs levofloxacin 500 mg tablet 500 mg PO DAILY #14 tabs 09/11/24 12/07/24 Rx omeprazole 40 mg capsule,delayed 40 mg PO DAILY #90 caps 10/06/24 12/07/24 Rx release amoxicillin 875 mg-potassium 1 tablet PO Q12H #15 tabs 10/15/24 12/07/24 Rx clavulanate 125 mg tablet amoxicillin 875 mg-potassium 1 tablet PO Q12H #42 tabs 10/17/24 12/07/24 Rx clavulanate 125 mg tablet nitrofurantoin macrocrystal 100 mg 100 mg PO Q12H 5 days #10 caps 11/10/24 12/07/24 Rx capsule acetaminophen 325 mg tablet 650 mg PO QID PRN fever or pain 12/07/24 12/07/24 History amlodipine 5 mg tablet 5 mg PO DAILY 12/07/24 12/07/24 History apixaban 5 mg tablet (Eliquis) 2.5 mg PO BID 12/07/24 12/07/24 History brexpiprazole 1 mg tablet (Rexulti) 1 mg PO DAILY 12/07/24 12/07/24 History cholecalciferol (vitamin D3) 125 125 mcg PO DAILY 12/07/24 12/07/24 History mcg (5,000 unit) capsule furosemide 20 mg tablet 20 mg PO DAILY 12/07/24 12/07/24 History hydroxyzine HCl 25 mg tablet 25 mg PO Q8H 12/07/24 12/07/24 History loperamide 2 mg capsule 2 mg PO Q6H PRN loose stool 12/07/24 12/07/24 History mirtazapine 7.5 mg tablet 7.5 mg PO HS 12/07/24 12/07/24 History polyethylene glycol 3350 17 17 g PO DAILY PRN constipation 12/07/24 12/07/24 History gram/dose oral powder Allergies Allergy/AdvReac Type Severity Reaction Status Date / Time venom-wasp Allergy Severe Swelling Verified 11/10/24 14:36 Sulfa (Sulfonamide Allergy Mild Rash Verified 11/10/24 14:36 Antibiotics) Vital Signs Vital Signs - 24 hr 12/07/24 09:59 12/07/24 14:20 Temperature 97.7 F Pulse Rate 73 Respiratory Rate 16 Blood Pressure 118/76 Pulse Oximetry 99 Oxygen Delivery Room Air Exam 2 Const: General: comfortable and no acute distress Other: Pleasant, elderly male sitting in the chair at the bedside in no acute distress. HENMT: Face/Nose/Sinus: Normal nares present Mouth: Yes moist mucous membranes Eyes: General: appearance normal, both eyes and all related structures Neck: Neck: supple and no JVD Thyroid: thyroid normal Lymphatic: l ymphadenopathy not noted Resp: Effort & Inspection: normal respiratory effort Auscultation: clear to auscultation bilaterally Cardio: Rate: regular rate Rhythm: regular rhythm Heart sounds: no gallops, no murmurs and no rubs GI: Inspection: non-distended Auscultation: normal bowel sounds Skin: General skin exam: normal color Lesions: no lesions noted Rashes: no rashes noted Wounds: no wounds Neuro: General: gait normal Speech: normal speech Motor exam (neuro): 5 /5 motor strength present throughout and Normal motor muscle tone present throughout Sensory Exam: normal sensation Extrem: Other: no edema. FROM Psych: Other: Pleasantly confused. Alert and oriented to self and location only. Results Labs 12/07/24 09:53 12/07/24 09:53 Labs: Short CBC 12/07/24 Range/Units 09:53 WBC 5.2 (4.5-10.0) K/mm3 Hgb 10.4 L (14.0-18.0) g/dL Hct 34.2 L (42.0-52.0) % Plt Count 376 H (150-375) k/mm3 BMP 12/07/24 09:53 Sodium 140 Potassium 4.1 Chloride 104 Carbon Dioxide 27 BUN 17 Creatinine 0.80 Glucose 104 Calcium 9.2 Liver Function 12/07/24 Range/Units 09:53 Total Bilirubin 0.5 (0.2-1.3) mg/dL AST 27 (17-59) U/L ALT 18 (6-50) U/L Alkaline Phosphatase 82 (38-126) U/L Albumin 4.1 (3.5-5.1) g/dL ECG Interpretation: NSR 70 bpm with occasional PVC's. Quality VTE Prophylaxis VTE prophylaxis: mechanical ordered (Holding pharmacologic in preparation for Surgery tomorrow.) Hospitalist [facility] Advance Care Plan I have confirmed that the patient's Advanced Care Plan is present, code status is documented, or surrogate decision maker is listed in patient medical record.: Yes Medication Reconciliation I have utilized all available resources to obtain, update and review the patients current medications (includes all prescriptions, OTC, herbals, cannabis, and nutritional supplements).: Yes
[2024-12-07 17:00] LABS: Hemoglobin A1C 5.1 % (<5.7)
[2024-12-07] MEDS: MEMANTINE 10 MG TABLET PO (17:08)
--- NOTE | 2024-12-07 19:30 | PC.NURSE ---
On 12/07/24, the BLOOD COLLECTOR, Tess Amin], provided care and completed [employer] documentation on this patient. I have reviewed the BLOOD COLLECTOR's documentation and agree with the findings.
[2024-12-07] MEDS: MIRTAZAPINE 7.5 MG TABLET PO (20:48)
[2024-12-07] MEDS: KCL 20 MEQ/D5/0.45% SOD CHL 1,000 ML 100 ML IV CONT (20:49)
[2024-12-07 22:00] VITALS: BP 120/60; PULSE 74; RESP 16; TEMP 36.6; O2SAT 98
[2024-12-08] VITALS (15 sets, daily range): BP systolic 121–142; BP diastolic 59–80; PULSE 63–105; RESP 11–20; TEMP 36.3–37.6; O2SAT 93–100; BMI 26.8; BMI 26.9
[2024-12-08] MEDS: KCL 20 MEQ/D5/0.45% SOD CHL 1,000 ML 100 ML IV CONT (09:01)
[2024-12-08] MEDS: SERTRALINE HCL 50 MG TABLET 150 MG PO (09:05)
[2024-12-08] MEDS: PANTOPRAZOLE 40 MG TABLET PO (09:05)
[2024-12-08] MEDS: MEMANTINE 10 MG TABLET PO ×2 (09:05→18:18)
--- NOTE | 2024-12-08 10:49 | WPDHPUPDATE1 ---
History and Physical Update Update Date/Time: 12/08/24 10:49 History and Physical has been reviewed, including an updated exam of the patient. There are NO changes in the patient's condition. Risks, benefits, and alternatives have been discussed and questions answered. Patient agrees to proceed with procedure.
[2024-12-08] MEDS: LACTATED RINGERS 1,000 ML 30 ML IV CONT ×2 (11:28→15:32)
[2024-12-08] MEDS: ACETAMINOPHEN 500 MG TABLET 1000 MG PO (11:50)
[2024-12-08] MEDS: ALVIMOPAN 12 MG CAPSULE PO (11:51)
[2024-12-08] MEDS: KETOROLAC 15 MG/ML VIAL (*BKC) IV PUSH (11:51)
--- NOTE | 2024-12-08 12:13 | WPDANESEPPF ---
Anes - Initial Pre Proc Eval Procedure: Operation Date: 12/08/24 12:00 Proposed Procedures p Open Sigmoid Colectomy, Possible Ostomy, Removal Mesh - Segundo Sanches DO Date/Time: 12/08/24 12:13 Surgeon: Segundo Sanches DO Pre Op Diagnosis: Diverticulitis with Perforation and Abscess Patient Data Age: 79 Gender: M Height: 1.73 m Weight: 80.2 kg Last Vital Signs Temp 36.8 C 12/08/24 06:00 Pulse 70 12/08/24 06:00 Resp 16 12/08/24 06:00 BP 142/80 H 12/08/24 06:00 Pulse Ox 99 12/08/24 06:00 O2 Del Method Room Air 12/07/24 20:00 Allergies Allergy/AdvReac Type Severity Reaction Status Date / Time venom-wasp Allergy Severe Swelling Verified 11/10/24 14:36 Sulfa (Sulfonamide Allergy Mild Rash Verified 11/10/24 14:36 Antibiotics) Home Medications ?Medication ?Instructions ?Recorded ?Confirmed ?Type memantine 10 mg tablet 10 mg PO BID #180 tabs 04/17/24 12/07/24 Rx ferrous sulfate 325 mg (65 mg 325 mg PO BID #180 tabs 06/21/24 12/07/24 Rx iron) tablet,delayed release sertraline 100 mg tablet 150 mg (1.5 x 100 mg) PO DAILY 08/17/24 12/07/24 Rx #135 tabs levofloxacin 500 mg tablet 500 mg PO DAILY #14 tabs 09/11/24 12/07/24 Rx omeprazole 40 mg capsule,delayed 40 mg PO DAILY #90 caps 10/06/24 12/07/24 Rx release acetaminophen 325 mg tablet 650 mg PO QID PRN fever or pain 12/07/24 12/07/24 History amlodipine 5 mg tablet 5 mg PO DAILY 12/07/24 12/07/24 History apixaban 5 mg tablet (Eliquis) 2.5 mg PO BID 12/07/24 12/07/24 History brexpiprazole 1 mg tablet (Rexulti) 1 mg PO DAILY 12/07/24 12/07/24 History cholecalciferol (vitamin D3) 125 125 mcg PO DAILY 12/07/24 12/07/24 History mcg (5,000 unit) capsule furosemide 20 mg tablet 20 mg PO DAILY 12/07/24 12/07/24 History hydroxyzine HCl 25 mg tablet 25 mg PO Q8H 12/07/24 12/07/24 History loperamide 2 mg capsule 2 mg PO Q6H PRN loose stool 12/07/24 12/07/24 History mirtazapine 7.5 mg tablet 7.5 mg PO HS 12/07/24 12/07/24 History polyethylene glycol 3350 17 17 g PO DAILY PRN constipation 12/07/24 12/07/24 History gram/dose oral powder Laboratory Tests 12/07/24 12/07/24 12/07/24 09:53 16:54 20:33 POC Capillary Glucose 108 H mg/dl 85 mg/dl (65-105) (65-105) Hemoglobin A1c 5.1 % (<5.7) 12/08/24 07:58 POC Capillary Glucose 112 H mg/dl (65-105) Hemoglobin A1c Patient hx anesthesia problems: none Family hx anesthesia problems: none Results Review: All pre-operative results and documents have been reviewed as part of the pre-operative evaluation. [facility] Past Medical History Medical History CHF (congestive heart failure) BMI 37.0-37.9, adult Melanoma Arthritis Mild dementia Benign prostatic hyperplasia Benign essential hypertension Chronic GERD Iron deficiency anemia Surgical History Surgical History History of incision and drainage 08/24/24 Incision and drainage of complex abdominal wall extending to the fascia and rectus muscle Dr. Sanches History of melanoma excision History of bilateral cataract extraction Status post repair of paraesophageal diaphragmatic hernia History of right inguinal hernia repair History of transurethral resection of prostate Family History Family History Mother Hypertension Family history of coronary artery disease Heart disease Father Family history of primary malignant neoplasm of liver Sibling No problems noted. Sibling No problems noted. Social History Social History Social History: Surrogate medical decision maker: Rula Watson, spouse. Code status: Full code. Smoking packs per day: 1.5 Smoking cigarettes per day: 30.0 Years smoked: 50 Smoking pack-years: 75.00 Smoking status: Former smoker Tobacco type: cigarettes Second hand tobacco smoke exposure: No Alcohol intake: former Substance use: never Substance use type: does not use Do You Feel Safe in your Home?: Yes Lack of Transportation: No Lack of Food: Never True Current Housing: I Have Housing Concerned About Future Housing: No Difficulty Paying Gas/Electric Bills: No Difficulty Paying for Meds: No Currently Unemployed: No Education: Bachelor's Degree Difficulty w/ Childcare or Family Care: No Living arrangements: with family Additional living arrangements comments: Lives with spouse in [place]. 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 Gender identity (if verbalized by the patient): Male Spiritual care concerns: No Anes - Eval Final PreProcedure Day of Procedure 12/08/24 12:13 Patient weight: overweight Heart: regular rate and rhythm Lungs: decreased breath sounds Airway: Mallampati scale class III Neurological: other (alert) Last oral intake: >/= 8 hours ASA classification: IV Emergent: no Anesthetic plan: proceed Anesthesia type and monitoring: general ETT and standard monitoring Results Review: All pre-operative results and documents have been reviewed as part of the pre-operative evaluation. Informed Consent: The patient's anesthetic plan and its attendant risks and benefits were discussed with the patient/family/POA. Questions were solicited and answers provided to the satisfaction of the patient/family/POA.
[2024-12-08] MEDS: ceFAZolin 2 GM/D5W 50 ML 2 GM/50 ML BAG IVPB (12:55)
[2024-12-08] MEDS: metroNIDAZOLE 500 MG/ISO 100ML 500 MG/100 ML BAG 100 MG IVPB (13:05)
--- NOTE | 2024-12-08 14:06 | S_PTH ---
PATIENT: Rodney Watson LOC: [id number] U#:[id number] AGE/SX: 79/M ROOM: 316 RE12/07/[address]: Estrellita Jacinto PA-C : 1945 BED: 01 DIS: 12/14/2024 SPEC #: [id number] RECD: 12/11/24 07:29 STATUS: PEPPER ROLDAN #: [id number] [place]: 12/08/24 14:[address]: Segundo Sanches DEPT: [facility] Surgical RECD BY: Leah Crawford ENTERED: 12/11/24 07:29 SP TYPE: Surgical OTHR DR: Mandeep Christine, DO Evonne Atkins, PIZZAMAKER-C Tissues: A - Colon Segment NonTumor B - Foreign Body Procedures: Gross Exam Level 1 Hematoxylin and Eosin Stain Gross and Microscopic Level 5
--- NOTE | 2024-12-08 14:52 | P.PNIM_ITS ---
Progress Note: A&P Assessment and Plan (1) Dementia: Qualifiers: Dementia type: unspecified type Dementia severity: unspecified severity Dementia behavioral or psychological symptom: unspecified whether behavioral, psychotic, or mood disturbance or anxiety Qualified Code(s): F03.90 - Unspecified dementia, unspecified severity, without behavioral disturbance, psychotic disturbance, mood disturbance, and anxiety Code(s): F03.90 - Unspecified dementia, unspecified severity, without behavioral disturbance, psychotic disturbance, mood disturbance, and anxiety Status: Chronic Assessment and Plan: * Condition chronic and currently stable. * Continue memantine 10 mg po daily and Rexulti 1 mg po daily. * Provide for safety. (2) Iron deficiency anemia: Qualifiers: Iron deficiency anemia type: unspecified iron deficiency Qualified Code(s): D50.9 - Iron deficiency anemia, unspecified Code(s): D50.9 - Iron deficiency anemia, unspecified Status: Chronic Assessment and Plan: * Chronic in nature. * Baseline Hgb is between 9.0-10.0. * Current Hgb is 10.4. * Continue supplemental Iron at 325 mg po BID. (3) Chronic anticoagulation: Code(s): Z79.01 - sports medicine trainer (current) use of anticoagulants Status: Chronic Assessment and Plan: * Secondary to hx of PE's. * Continue to hold Eliquis currently in the setting of surgery * Recommend resumption of Eliquis when OK with surgery. * SCD's required in meantime for DVT prophylaxis. (4) Benign essential hypertension: Code(s): I10 - Essential (primary) hypertension Status: Chronic Assessment and Plan: * Continue to monitor and trend VS w/BP. * Current BP trend is stable with SBP ranging 1-teens to 150s and DBP ranging 70s-80s * Continue current home medications of Amlodipine 5 mg po daily (5) CHF (congestive heart failure): Code(s): I50.9 - Heart failure, unspecified Status: Chronic Assessment and Plan: * Last echocardiogram dated June 02, 2024 showing a normal left ventricular systolic function with EF 55-60% and grade 1 diastolic dysfunction * Continue current home medications including Bumex 1 mg p.o. daily * Daily weight * Accurate Intake and output. * Does not appear to be in acute exacerbation. * Cardiac diet when able to tolerate solid foods. (6) Diabetes mellitus: Code(s): E11.9 - Type 2 diabetes mellitus without complications Status: Chronic Assessment and Plan: * Check glucose a.c. and HS * Not currently on any home medications. * A1c 5.1 * Diabetic diet when able to tolerate solid foods. 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 (8) Abscess of sigmoid colon due to diverticulitis: Code(s): K57.20 - Diverticulitis of large intestine with perforation and abscess without bleeding Status: Chronic Assessment and Plan: * Patient scheduled for colectomy per general surgery. Subjective Date/time seen: 12/08/24 14:52 Interval history: no overnight events, planned surgery . family at bedside. Review of Systems Review of Systems: All systems reviewed & are unremarkable except as noted in HPI and below Exam Narrative: GENERAL: Well-appearing, well-nourished, and in no acute distress. HEAD: Normocephalic, atraumatic. EYES: PERRLA and EOMI. ENT: Nares clear, no rhinorrhea or epistaxis. Mucous membranes moist. NECK: Supple. CHEST: Clear to auscultation. No respiratory distress. HEART: Regular rate and rhythm. No murmur heard. Normal peripheral pulses. ABDOMEN: Soft, nontender, nondistended, normal active bowel sounds. left lower quadrant with fistulous opening EXTREMITIES: Normal range of motion. No edema. SKIN: Warm, dry, no rash. NEURO: No focal deficits. Alert and oriented x3. PSYCH: Normal mood and affect. Objective Data Vital Signs Vital Signs: Vital Signs - 24 hr 12/07/24 20:00 12/07/24 22:00 12/08/24 06:00 Temperature 97.9 F 98.2 F Pulse Rate 74 70 Respiratory Rate 16 16 Blood Pressure 120/60 142/80 H Pulse Oximetry 98 99 Oxygen Delivery Room Air 12/08/24 11:28 Temperature 98.4 F Pulse Rate 63 Respiratory Rate 18 Blood Pressure 129/68 Pulse Oximetry 100 Oxygen Delivery Room Air Intake/Output Intake/Output: Intake & Output 12/05/24 12/06/24 12/07/24 12/08/24 23:59 23:59 23:59 23:59 Intake Total 1320 1150 Output Total 0 Balance 1320 1150 Meds/Results Medications: Active Medications Generic Name Dose Route Start Last Admin Trade Name Freq PRN Reason Stop Dose Admin Amlodipine Besylate 5 mg 12/08/24 09:00 12/08/24 09:05 Amlodipine Besylate 5 Mg Tablet PO 5 mg DAILY NINFA Administration Fentanyl Citrate 25 mcg 12/08/24 12:14 Fentanyl Citrate Inj (*Crx) 100 Mcg/2 Ml Vial IV PUSH Q2M PRN Pain Potassium Chloride/Dextrose/Sod Cl 1,000 mls @ 100 mls/hr 12/07/24 22:00 12/08/24 09:01 Kcl 20 Meq/D5/0.45% Sod Chl IV CONT 100 mls/hr .Q10H NINFA Administration Lactated Ringer's 1,000 mls @ 30 mls/hr 12/08/24 12:15 12/08/24 11:28 Lr - Lactated Ringers Iv IV CONT 30 mls/hr .Q24H NINFA Administration Lactated Ringer's 1,000 mls @ 30 mls/hr 12/08/24 12:15 Lr - Lactated Ringers Iv IV CONT .Q24H NINFA Memantine 10 mg 12/07/24 17:00 12/08/24 09:05 Memantine 10 Mg Tablet PO 10 mg BID NINFA Administration Mirtazapine 7.5 mg 12/07/24 21:00 12/07/24 20:48 Mirtazapine 7.5 Mg Tablet PO 7.5 mg HS NINFA Administration Miscellaneous Information 0 each 12/07/24 00:01 12/07/24 21:18 Brexpiprazole Nonform Can Pt Bring From Home? XX 01/06/25 00:00 Not Given CLARIFY NINFA Non-Formulary Medication 1 mg 12/08/24 09:00 Brexpiprazole [Rexulti] PO 01/07/25 08:59 DAILY NINFA Ondansetron HCl 4 mg 12/07/24 09:32 Ondansetron Inj 4 Mg/2 Ml Vial IV PUSH Q6H PRN Nausea And Vomiting Ondansetron HCl 4 mg 12/08/24 12:14 Ondansetron Inj 4 Mg/2 Ml Vial IV PUSH ONCE PRN Nausea Pantoprazole Sodium 40 mg 12/08/24 09:00 12/08/24 09:05 Pantoprazole 40 Mg Tablet PO 40 mg QAM NINFA Administration Sertraline HCl 150 mg 12/08/24 09:00 12/08/24 09:05 Sertraline Hcl 50 Mg Tablet PO 150 mg DAILY NINFA Administration Labs Labs: Laboratory Results - last 24 hr 12/07/24 12/07/24 12/07/24 09:53 16:54 20:33 POC Capillary Glucose 108 H 85 Hemoglobin A1c 5.1 12/08/24 12/08/24 07:58 11:56 POC Capillary Glucose 112 H 98 Hemoglobin A1c
--- NOTE | 2024-12-08 15:47 | W.PM.PROC2 ---
Procedure Note - Detailed Date of Procedure 12/08/24 Pre-op Diagnosis Diverticulitis with Perforation and Abscess, Colocutaneous fistula, mesh infection Post-op Diagnosis Same Procedure Performed 1. Open sigmoid colectomy with colorectal anastomosis 2. Removal of infected left inguinal and right inguinal mesh Surgeon Segundo Sanches DO Injector Assembler Estrellita Jacinto PA-C Anesthesia General Indications this is an 79-year-old man with diverticulitis with abscess who also subsequently developed a colocutaneous fistula and likely has a mesh infection. He has a prior history of bilateral inguinal hernia repair with mesh and the diverticular abscess appeared to be in the suprapubic region right near both meshes. The infection did not improve with percutaneous drainage and long-term antibiotics. Decision was then made to proceed with open sigmoid colectomy, possible ostomy, removal of old mesh. Findings Open sigmoid colectomy was performed. The patient was found to have the area of diverticulitis within the infraumbilical region up to the midline abdominal wall. There were some dense adhesions of the sigmoid colon up to this region. Once these adhesions were taken down I was able to assess the remainder of the colon. The descending colon and rectum appeared healthy. Sigmoid colon resection was performed and an end to side stapled anastomosis was performed with a 25 mm EEA stapler. The anvil was placed through the anti mesenteric border of the descending colon and this was brought down into the pelvis without any tension. After performing the anastomosis, the anastomotic rings were inspected and appeared circumferential. Leak test was performed and there was no evidence of air leak at the anastomosis. After completing the anastomosis I then inspected the lower abdominal wall. There appeared to be some tracking of the chronic abscess in the abdominal wall between the peritoneum and rectus muscle. This was also where the mesh was located. Some of the involved mesh and peritoneum was excised from the left lower quadrant, but there did not appear to be any significant abscess along this area. Along the right lower quadrant I was able to identify what appeared to be a prior 3DMax mesh and this appeared to be involved with an abscess cavity. I excised most of this mesh within this region but left a small portion of the mesh posterior to the ileo inguinal tract to avoid any risks of injuring nerves or vessels in this region. The mesh was sent to the lab for pathology. Estrellita Jacinto PA-C assisted with the entire procedure. Description of Procedure Procedure as well as risks, benefits, and alternatives were discussed with the patient. Written consent was obtained and placed in chart prior to procedure. Patient was brought back to surgical suite. He was placed supine on operating table. Time-out was done to confirm patient and procedure. He was then intubated by the anesthesia department. He was then repositioned into a modified lithotomy position in stirrups. His abdomen was prepped and draped in sterile fashion using chlorhexidine prep and his rectum and perirectal region was prepped and draped in sterile fashion using Betadine prep. A 15 cm vertical midline incision was made from just above the umbilicus to the suprapubic region using a 10 blade scalpel. Electrocautery was used for hemostasis and for dissection through the subcutaneous tissue. The linea alba was incised near the umbilicus using electrocautery and then the peritoneum was entered using electrocautery. I then extended the fascial incision cephalad to the edge of the skin incision. I then began extending the fascial incision caudally but there was some sigmoid colon adherent to the lower midline abdominal wall. I carefully dissected the sigmoid colon free from the abdominal wall using blunt dissection with finger fracture technique and electrocautery. Once the sigmoid colon was freed up from the abdominal wall I was then able to extend the fascial incision to the caudal edge of the skin incision. The abdominal cavity was carefully inspected. I then placed an Tuan wound protector. The sigmoid colon was retracted to the right and the lateral peritoneal attachments were carefully taken down using electrocautery. I carefully dissected in this plane until I identified the left ureter. This was preserved in its retroperitoneal location throughout its tract. The lateral mobilization was extended onto the descending colon and the lateral peritoneal reflection was taken down far enough to allow for resection and anastomosis. I then continued my dissection along the upper rectum while again identifying the left ureter and preserving it and its location. The upper rectum appeared healthy and soft. I then retracted the sigmoid colon to the left and scored the peritoneum along the under surface of the sigmoid artery. I then continued this to the upper rectum and identified a location that appeared to be healthy for resection and anastomosis. A window was created in the mesorectum at this location and then a contour stapler was advanced across the upper rectum at this location and clamped and fired. I then took down the mesorectum using LigaSure bipolar cautery. I then continued this dissection along the sigmoid colon and took down the sigmoid mesocolon and ligated the sigmoidal artery branches using LigaSure bipolar cautery. I continue to take the mesocolon down to the descending colon sigmoid colon junction. I then identified the location for resection. I made a colotomy distal to this location using electrocautery. I then advanced a 25 mm EEA anvil through the colotomy on to the anti mesenteric border of the descending colon. The anvil was then pierced through the anti mesenteric portion about 4 cm proximal to the colotomy. A BONNY 75 mm blue load stapler was then advanced across the transection location and clamped and fired. The anvil was then secured in place using a 3-0 Vicryl pursestring suture. The remaining attachments to the sigmoid colon were then taken down using LigaSure bipolar cautery and then it was removed and sent to the lab for pathology. The descending colon appeared to come down into the pelvis without any tension. The EEA sizers were advanced up the rectum to the staple line. The 25 mm EEA stapler was then advanced to the staple line and then the pin was opened along the left lateral edge of the staple line. The anvil was then secured to the pin and the stapler was carefully closed. I then ensured that the colon was not twisted along its path and there were no other contents closing into the stapler with it. The stapler was then completely closed and then fired to create the anastomosis. The stapler was then removed and the anastomosis was inspected. The anastomosis appeared secure, healthy, and viable. The anastomotic rings appeared circumferential. 3-0 Vicryl seromuscular imbricating sutures were placed at the lateral corners of the anastomosis. I then also placed a couple imbricating sutures along the anterior surface of the anastomosis. The pelvis was then filled with saline and the rigid proctoscope was inserted into the rectum. The descending colon was pinched closed and air was insufflated through the proctoscope. The anastomosis was dilated with air and no air bubbles were seen leaking from the anastomosis. The rigid proctoscope was then removed. One final inspection was made and hemostasis appeared adequate and no other abnormalities were noted. The Tuan wound protector was then removed. I then moved my attention to the lower abdominal wall. There appeared to be evidence of the chronic abscess along the left rectus muscle region. There was some mesh in this region that was carefully excised off of the peritoneum and rectus muscle using electrocautery. This was excised for about of 3 cm circumference around where the abscess had been. The infected mesh was removed and sent to the lab for pathology. I then also inspected the right rectus muscle and identified another abscess cavity just posterior to the rectus muscle by between the peritoneum and the muscle. I identified what appeared to be a 3DMax mesh within this region and this also appeared to be where a majority of the abscess cavity remained. I carefully excised the mesh and peritoneum involved in the abscess in this location. This was excised all the way down to the level of the ilioinguinal tract. I then transected the mesh at this point to avoid injuring any structures posterior to the ilioinguinal tract. I then inspected this region carefully and hemostasis appeared adequate and no other abnormalities were identified. I did appear to be within the space of Retzius but I did not identify anything that appeared to be bladder or any injuries to the bladder. One final inspection was made around the abdomen and no other abnormalities were noted. The fascia of the midline incision was reapproximated using 0 PDS running absorbable suture starting at each end and meeting in the middle. The skin was then approximated using a skin stapler. Xeroform gauze, fluff gauze, and Medipore tape were then applied. The patient was then awakened from anesthesia, extubated, and transferred to recovery. Estimated Blood Loss 100 Urine Output 0 Pathology Yes (Sigmoid colon, infected mesh) Complications No immediate complications Condition Stable Disposition Floor [facility] Billing Surgery - Charge Forward: Surgery Billing
[2024-12-08] MEDS: ACETAMINOPHEN 325 MG TABLET 650 MG PO ×2 (18:18→23:26)
[2024-12-08] MEDS: LACTATED RINGERS 1,000 ML 100 ML IV CONT (21:16)
[2024-12-08] MEDS: ceFAZolin 1 GM/NS 50 ML 1 GM/50 ML BAG IVPB (21:18)
[2024-12-08] MEDS: MIRTAZAPINE 7.5 MG TABLET PO (21:20)
[2024-12-09] VITALS (7 sets, daily range): BP systolic 113–141; BP diastolic 57–74; PULSE 74–88; RESP 16–20; TEMP 36.1–36.9; O2SAT 94–99
--- NOTE | 2024-12-09 00:46 | PC.NURSE ---
Patient monitored frequently for signs/symptoms of pain. He has been resting quietly all night, eyes closed. Awakens easily when spoken to and he has stated No to wanting anything stronger for pain then the tylenol ordered.
[2024-12-09] MEDS: MORPHINE SULFATE (*CRX) 2 MG/ML INJ IV PUSH (01:34)
[2024-12-09] MEDS: ceFAZolin 1 GM/NS 50 ML 1 GM/50 ML BAG IVPB (05:30)
[2024-12-09] MEDS: ACETAMINOPHEN 325 MG TABLET 650 MG PO ×4 (05:49→23:55)
[2024-12-09 06:46] LABS: Hematocrit 32.2 % (42.0-52.0); Hemoglobin 9.8 g/dL (14.0-18.0); Mean Corpuscular HGB Conc 30.4 g/dl (32-36); Mean Corpuscular Hemoglobin 29.0 pg (26-34); Mean Corpuscular Volume 95.3 fl (80-100); Platelet Count Result 306 k/mm3 (150-375); Red Blood Count 3.38 M/mm3 (4.6-6.20); White Blood Count 13.7 K/mm3 (4.5-10.0)
[2024-12-09 07:03] LABS: Anion Gap 6 mmol/L (4-12); Blood Urea Nitrogen 13 mg/dL (9-20); Calcium 8.5 mg/dL (8.4-10.2); Carbon Dioxide 25 mmol/L (22-30); Chloride 106 mmol/L (98-107); Estimated CRCL calculation 66 ml/min; Estimated Glomerular Filt Rate > 60; Glucose 130 mg/dL (65-110); Potassium 3.8 mmol/L (3.4-5.0); Sodium 137 mmol/L (137-145)
[2024-12-09] MEDS: SERTRALINE HCL 50 MG TABLET 150 MG PO (09:35)
[2024-12-09] MEDS: PANTOPRAZOLE 40 MG TABLET PO (09:35)
[2024-12-09] MEDS: MEMANTINE 10 MG TABLET PO ×2 (09:35→17:49)
[2024-12-09] MEDS: ENOXAPARIN 40 MG/0.4 ML SYRINGE SUB-Q (09:40)
--- NOTE | 2024-12-09 13:54 | PM.PNGS ---
Progress Note: A&P Assessment and Plan (1) Abscess of sigmoid colon due to diverticulitis: Code(s): K57.20 - Diverticulitis of large intestine with perforation and abscess without bleeding Status: Chronic Assessment and Plan: Advance to full liquids and stop IV fluid Increase activity Await return of bowel function Local wound care with dressing changes 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: Qualifiers: Encounter type: subsequent encounter Qualified Code(s): T85.79XD - Infection and inflammatory reaction due to other internal prosthetic devices, implants and grafts, subsequent encounter Code(s): T85.79XA - Infection and inflammatory reaction due to other internal prosthetic devices, implants and grafts, initial encounter Status: Acute (4) Dementia: Qualifiers: Dementia type: unspecified type Dementia severity: unspecified severity Dementia behavioral or psychological symptom: unspecified whether behavioral, psychotic, or mood disturbance or anxiety Qualified Code(s): F03.90 - Unspecified dementia, unspecified severity, without behavioral disturbance, psychotic disturbance, mood disturbance, and anxiety Code(s): F03.90 - Unspecified dementia, unspecified severity, without behavioral disturbance, psychotic disturbance, mood disturbance, and anxiety Status: Chronic Subjective Subjective Date/Time Seen: 12/09/24 13:54 Interval history: Passing flatus. Pain controlled. No bloating or nausea. Tolerating clears. Exam GI: Inspection: non-distended and incision (intact with martine, mild serosanguinous drainage) GI Palp: Yes Soft to palpation, Yes Tenderness to palpation present (GI) (incisional) and No Guarding due to palpation present (GI) Percussion: Yes normal to percussion Auscultation: normal bowel sounds Objective Data Vital Signs Vital Signs: Vital Signs - 24 hr 12/08/24 15:32 12/08/24 15:45 12/08/24 16:00 Temperature Pulse Rate 72 73 77 Respiratory Rate 12 13 12 Blood Pressure 130/66 130/66 127/63 Pulse Oximetry 100 100 100 Oxygen Delivery Simple Face Mask Simple Face Mask Simple Face Mask Oxygen Flow Rate 8 8 8 12/08/24 16:15 12/08/24 16:27 12/08/24 16:30 Temperature Pulse Rate 78 76 77 Respiratory Rate 11 L 11 L 16 Blood Pressure 130/66 132/69 132/69 Pulse Oximetry 100 100 100 Oxygen Delivery Simple Face Mask Simple Face Mask Simple Face Mask Oxygen Flow Rate 8 8 8 12/08/24 16:43 12/08/24 16:45 12/08/24 16:55 Temperature 98.1 F Pulse Rate 82 84 Respiratory Rate 14 13 Blood Pressure 134/69 130/65 Pulse Oximetry 100 94 93 Oxygen Delivery Room Air Room Air Room Air Oxygen Flow Rate 12/08/24 17:50 12/08/24 18:05 12/08/24 18:35 Temperature 99.6 F 98.4 F 98.4 F Pulse Rate 81 92 105 H Respiratory Rate 18 18 18 Blood Pressure 127/64 123/64 123/64 Pulse Oximetry 94 94 94 Oxygen Delivery Oxygen Flow Rate 12/08/24 20:40 12/09/24 00:55 12/09/24 05:45 Temperature 97.3 F L 97.5 F L 97 F L Pulse Rate 93 74 81 Respiratory Rate 20 18 16 Blood Pressure 121/59 L 141/62 H 136/62 Pulse Oximetry 96 97 98 Oxygen Delivery Oxygen Flow Rate 12/09/24 08:51 12/09/24 10:26 Temperature 97.8 F Pulse Rate 87 Respiratory Rate 18 Blood Pressure 113/57 L Pulse Oximetry 94 97 Oxygen Delivery Room Air Oxygen Flow Rate Intake/Output Intake/Output: Intake & Output 12/06/24 12/07/24 12/08/24 12/09/24 23:59 23:59 23:59 23:59 Intake Total 1320 1200 370 Output Total 0 475 Balance 1320 1200 -105 Meds/Results Medications: Active Medications Generic Name Dose Route Start Last Admin Trade Name Laina PRN Reason Stop Dose Admin Acetaminophen 650 mg 12/08/24 18:00 12/09/24 11:37 Acetaminophen 325 Mg Tablet PO 650 mg Q6HR [facility] Administration Hydrocodone Bitart/Acetaminophen 1 tab 12/08/24 16:57 Hydrocodone/Acetaminophen (*Crx) 5-325 Mg Tablet PO Q4H PRN Pain Rated 4-6 Alvimopan 12 mg 12/09/24 21:00 Alvimopan 12 Mg Capsule PO 12/16/24 20:59 Q12HR [facility] Amlodipine Besylate 5 mg 12/08/24 09:00 12/09/24 09:35 Amlodipine Besylate 5 Mg Tablet PO 5 mg DAILY NINFA Administration Enoxaparin Sodium 40 mg 12/09/24 09:00 12/09/24 09:40 Enoxaparin 40 Mg/0.4 Ml Syringe SUB-Q 40 mg DAILY NINFA Administration Memantine 10 mg 12/07/24 17:00 12/09/24 09:35 Memantine 10 Mg Tablet PO 10 mg BID NINFA Administration Mirtazapine 7.5 mg 12/07/24 21:00 12/08/24 21:20 Mirtazapine 7.5 Mg Tablet PO 7.5 mg HS NINFA Administration Miscellaneous Information 0 each 12/07/24 00:01 12/07/24 21:18 Brexpiprazole Nonform Can Pt Bring From Home? XX 01/06/25 00:00 Not Given CLARIFY [facility] Morphine Sulfate 2 mg 12/08/24 16:57 12/09/24 01:34 Morphine Sulfate (*Crx) 2 Mg/Ml Inj IV PUSH 2 mg Q2H PRN Administration Breakthrough Pain Rated 4-6 or NPO Morphine Sulfate 4 mg 12/08/24 16:57 Morphine Sulfate (*Crx) 4 Mg/Ml Inj IV PUSH Q2H PRN Breakthrough Pain Rated 7-10 or NPO Naloxone HCl 0.1 mg 12/08/24 16:57 Naloxone Hcl 0.4 Mg/Ml Vial IV PUSH Q2M PRN Opiate Reversal Non-Formulary Medication 1 mg 12/08/24 09:00 Brexpiprazole [Rexulti] PO 01/07/25 08:59 DAILY [facility] Ondansetron HCl 4 mg 12/07/24 09:32 Ondansetron Inj 4 Mg/2 Ml Vial IV PUSH Q6H PRN Nausea And Vomiting Pantoprazole Sodium 40 mg 12/08/24 09:00 12/09/24 09:35 Pantoprazole 40 Mg Tablet PO 40 mg QAM NINFA Administration Sertraline HCl 150 mg 12/08/24 09:00 12/09/24 09:35 Sertraline Hcl 50 Mg Tablet PO 150 mg DAILY NINFA Administration Labs Labs: Laboratory Results - last 24 hr 12/08/24 12/08/24 12/09/24 16:34 20:45 06:21 WBC 13.7 H RBC 3.38 L Hgb 9.8 L Hct 32.2 L MCV 95.3 MCH 29.0 MCHC 30.4 L RDW 16.6 H Plt Count 306 MPV 9.5 Sodium 137 Potassium 3.8 Chloride 106 Carbon Dioxide 25 Anion Gap 6 BUN 13 Creatinine 0.74 Estim Creat Clear Calc 66 Estimated GFR > 60 Glucose 130 H POC Capillary Glucose 143 H 182 H Calcium 8.5 12/09/24 07:38 WBC RBC Hgb Hct MCV MCH MCHC RDW Plt Count MPV Sodium Potassium Chloride Carbon Dioxide Anion Gap BUN Creatinine Estim Creat Clear Calc Estimated GFR Glucose POC Capillary Glucose 139 H Calcium
[2024-12-09] MEDS: HYDROcodone/acetaminophen (*CRX) 5-325 MG TABLET 1 TAB PO (14:26)
--- NOTE | 2024-12-09 14:58 | P.PNIM_ITS ---
Progress Note: A&P Assessment and Plan (1) Dementia: Qualifiers: Dementia type: unspecified type Dementia severity: unspecified severity Dementia behavioral or psychological symptom: unspecified whether behavioral, psychotic, or mood disturbance or anxiety Qualified Code(s): F03.90 - Unspecified dementia, unspecified severity, without behavioral disturbance, psychotic disturbance, mood disturbance, and anxiety Code(s): F03.90 - Unspecified dementia, unspecified severity, without behavioral disturbance, psychotic disturbance, mood disturbance, and anxiety Status: Chronic Assessment and Plan: * Condition chronic and currently stable. * Continue memantine 10 mg po daily and Rexulti 1 mg po daily. * Provide for safety. (2) Iron deficiency anemia: Qualifiers: Iron deficiency anemia type: unspecified iron deficiency Qualified Code(s): D50.9 - Iron deficiency anemia, unspecified Code(s): D50.9 - Iron deficiency anemia, unspecified Status: Chronic Assessment and Plan: * Chronic in nature. * Baseline Hgb is between 9.0-10.0. * Current Hgb is 10.4. * Continue supplemental Iron at 325 mg po BID. 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 * Continue to hold Eliquis currently in the setting of surgery * Recommend resumption of Eliquis when OK with surgery. * SCD's required in meantime for DVT prophylaxis. (4) Benign essential hypertension: Code(s): I10 - Essential (primary) hypertension Status: Chronic Assessment and Plan: * Continue to monitor and trend VS w/BP. * Current BP trend is stable with SBP ranging 1-teens to 150s and DBP ranging 70s-80s * Continue current home medications of Amlodipine 5 mg po daily (5) CHF (congestive heart failure): Code(s): I50.9 - Heart failure, unspecified Status: Chronic Assessment and Plan: * Last echocardiogram dated June 02, 2024 showing a normal left ventricular systolic function with EF 55-60% and grade 1 diastolic dysfunction * Continue current home medications including Bumex 1 mg p.o. daily * Daily weight * Accurate Intake and output. * Does not appear to be in acute exacerbation. * Cardiac diet when able to tolerate solid foods. (6) Diabetes mellitus: Code(s): E11.9 - Type 2 diabetes mellitus without complications Status: Chronic Assessment and Plan: * Check glucose a.c. and HS * Not currently on any home medications. * A1c 5.1 * Diabetic diet when able to tolerate solid foods. 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 Doing well denies any new complaints. No chest pain or shortness of breath. Started on clear liquid diet. Pain controlled. No bowel movement yet. Review of Systems Review of Systems: All systems reviewed & are unremarkable except as noted in HPI and below Exam Narrative: GENERAL: Well-appearing, well-nourished, and in no acute distress. HEAD: Normocephalic, atraumatic. EYES: PERRLA and EOMI. ENT: Nares clear, no rhinorrhea or epistaxis. Mucous membranes moist. NECK: Supple. CHEST: Clear to auscultation. No respiratory distress. HEART: Regular rate and rhythm. No murmur heard. Normal peripheral pulses. ABDOMEN: Soft, nontender, nondistended, normal active bowel sounds. Incision clean dry and intact dressing with some so case noted EXTREMITIES: Normal range of motion. No edema. SKIN: Warm, dry, no rash. NEURO: No focal deficits. Alert and oriented x3. PSYCH: Normal mood and affect. Objective Data Vital Signs Vital Signs: Vital Signs - 24 hr 12/08/24 15:32 12/08/24 15:45 12/08/24 16:00 Temperature Pulse Rate 72 73 77 Respiratory Rate 12 13 12 Blood Pressure 130/66 130/66 127/63 Pulse Oximetry 100 100 100 Oxygen Delivery Simple Face Mask Simple Face Mask Simple Face Mask Oxygen Flow Rate 8 8 8 12/08/24 16:15 12/08/24 16:27 12/08/24 16:30 Temperature Pulse Rate 78 76 77 Respiratory Rate 11 L 11 L 16 Blood Pressure 130/66 132/69 132/69 Pulse Oximetry 100 100 100 Oxygen Delivery Simple Face Mask Simple Face Mask Simple Face Mask Oxygen Flow Rate 8 8 8 12/08/24 16:43 12/08/24 16:45 12/08/24 16:55 Temperature 98.1 F Pulse Rate 82 84 Respiratory Rate 14 13 Blood Pressure 134/69 130/65 Pulse Oximetry 100 94 93 Oxygen Delivery Room Air Room Air Room Air Oxygen Flow Rate 12/08/24 17:50 12/08/24 18:05 12/08/24 18:35 Temperature 99.6 F 98.4 F 98.4 F Pulse Rate 81 92 105 H Respiratory Rate 18 18 18 Blood Pressure 127/64 123/64 123/64 Pulse Oximetry 94 94 94 Oxygen Delivery Oxygen Flow Rate 12/08/24 20:40 12/09/24 00:55 12/09/24 05:45 Temperature 97.3 F L 97.5 F L 97 F L Pulse Rate 93 74 81 Respiratory Rate 20 18 16 Blood Pressure 121/59 L 141/62 H 136/62 Pulse Oximetry 96 97 98 Oxygen Delivery Oxygen Flow Rate 12/09/24 08:51 12/09/24 10:26 Temperature 97.8 F Pulse Rate 87 Respiratory Rate 18 Blood Pressure 113/57 L Pulse Oximetry 94 97 Oxygen Delivery Room Air Oxygen Flow Rate Intake/Output Intake/Output: Intake & Output 12/06/24 12/07/24 12/08/24 12/09/24 23:59 23:59 23:59 23:59 Intake Total 1320 1200 370 Output Total 0 475 Balance 1320 1200 -105 Meds/Results Medications: Active Medications Generic Name Dose Route Start Last Admin Trade Name Freq PRN Reason Stop Dose Admin Acetaminophen 650 mg 12/08/24 18:00 12/09/24 11:37 Acetaminophen 325 Mg Tablet PO 650 mg Q6HR NINFA Administration Hydrocodone Bitart/Acetaminophen 1 tab 12/08/24 16:57 12/09/24 14:26 Hydrocodone/Acetaminophen (*Crx) 5-325 Mg Tablet PO 1 tab Q4H PRN Administration Pain Rated 4-6 Alvimopan 12 mg 12/09/24 21:00 Alvimopan 12 Mg Capsule PO 12/16/24 20:59 Q12HR NINFA Amlodipine Besylate 5 mg 12/08/24 09:00 12/09/24 09:35 Amlodipine Besylate 5 Mg Tablet PO 5 mg DAILY NINFA Administration Enoxaparin Sodium 40 mg 12/09/24 09:00 12/09/24 09:40 Enoxaparin 40 Mg/0.4 Ml Syringe SUB-Q 40 mg DAILY NINFA Administration Memantine 10 mg 12/07/24 17:00 12/09/24 09:35 Memantine 10 Mg Tablet PO 10 mg BID NINFA Administration Mirtazapine 7.5 mg 12/07/24 21:00 12/08/24 21:20 Mirtazapine 7.5 Mg Tablet PO 7.5 mg HS NINFA Administration Miscellaneous Information 0 each 12/07/24 00:01 12/07/24 21:18 Brexpiprazole Nonform Can Pt Bring From Home? XX 01/06/25 00:00 Not Given CLARIFY NINFA Morphine Sulfate 2 mg 12/08/24 16:57 12/09/24 01:34 Morphine Sulfate (*Crx) 2 Mg/Ml Inj IV PUSH 2 mg Q2H PRN Administration Breakthrough Pain Rated 4-6 or NPO Morphine Sulfate 4 mg 12/08/24 16:57 Morphine Sulfate (*Crx) 4 Mg/Ml Inj IV PUSH Q2H PRN Breakthrough Pain Rated 7-10 or NPO Naloxone HCl 0.1 mg 12/08/24 16:57 Naloxone Hcl 0.4 Mg/Ml Vial IV PUSH Q2M PRN Opiate Reversal Non-Formulary Medication 1 mg 12/08/24 09:00 Brexpiprazole [Rexulti] PO 01/07/25 08:59 DAILY [facility] Ondansetron HCl 4 mg 12/07/24 09:32 Ondansetron Inj 4 Mg/2 Ml Vial IV PUSH Q6H PRN Nausea And Vomiting Pantoprazole Sodium 40 mg 12/08/24 09:00 12/09/24 09:35 Pantoprazole 40 Mg Tablet PO 40 mg QAM NINFA Administration Sertraline HCl 150 mg 12/08/24 09:00 12/09/24 09:35 Sertraline Hcl 50 Mg Tablet PO 150 mg DAILY NINFA Administration Labs Labs: Laboratory Results - last 24 hr 12/08/24 12/08/24 12/09/24 16:34 20:45 06:21 WBC 13.7 H RBC 3.38 L Hgb 9.8 L Hct 32.2 L MCV 95.3 MCH 29.0 MCHC 30.4 L RDW 16.6 H Plt Count 306 MPV 9.5 Sodium 137 Potassium 3.8 Chloride 106 Carbon Dioxide 25 Anion Gap 6 BUN 13 Creatinine 0.74 Estim Creat Clear Calc 66 Estimated GFR > 60 Glucose 130 H POC Capillary Glucose 143 H 182 H Calcium 8.5 12/09/24 07:38 WBC RBC Hgb Hct MCV MCH MCHC RDW Plt Count MPV Sodium Potassium Chloride Carbon Dioxide Anion Gap BUN Creatinine Estim Creat Clear Calc Estimated GFR Glucose POC Capillary Glucose 139 H Calcium
--- NOTE | 2024-12-09 16:43 | WPDANESPN ---
Anes - Prog Note Post-Op Date/Time: 12/09/24 16:43 Cardiovascular status: normal Respiratory status: normal Airway patency: baseline Mental status: baseline Post-Op hydration status: normal Vital Signs: Last Vital Signs Temp 98.4 F 12/09/24 14:42 Pulse 86 12/09/24 14:42 Resp 18 12/09/24 14:42 BP 138/74 12/09/24 14:42 Pulse Ox 99 12/09/24 14:42 O2 Del Method Room Air 12/09/24 08:51 O2 Flow Rate 8 12/08/24 16:30 Pain Score (VAS): 3 I/O: Intake & Output 12/09/24 12/09/24 12/09/24 07:59 15:59 23:59 Intake Total 250 600 Output Total 475 1000 Balance -225 -400 Laboratory Tests 12/09/24 06:21 12/09/24 06:21 12/08/24 12/09/24 12/09/24 20:45 06:21 07:38 WBC 13.7 H RBC 3.38 L Hgb 9.8 L Hct 32.2 L MCV 95.3 MCH 29.0 MCHC 30.4 L RDW 16.6 H Plt Count 306 MPV 9.5 Sodium 137 Potassium 3.8 Chloride 106 Carbon Dioxide 25 Anion Gap 6 BUN 13 Creatinine 0.74 Estim Creat Clear Calc 66 Estimated GFR > 60 Glucose 130 H POC Capillary Glucose 182 H 139 H Calcium 8.5 Post-procedural complaints: none Patient Feedback: Patient satisfied with anesthetic care.
[2024-12-09] MEDS: ALVIMOPAN 12 MG CAPSULE PO (21:06)
[2024-12-09] MEDS: MIRTAZAPINE 7.5 MG TABLET PO (21:06)
[2024-12-10] MEDS: MORPHINE SULFATE (*CRX) 2 MG/ML INJ IV PUSH (03:47)
[2024-12-10] MEDS: ACETAMINOPHEN 325 MG TABLET 650 MG PO ×3 (05:27→18:26)
[2024-12-10 05:30] VITALS: BP 145/82; PULSE 80; RESP 20; TEMP 36.4; O2SAT 97
[2024-12-10 06:59] LABS: Hematocrit 36.5 % (42.0-52.0); Hemoglobin 11.1 g/dL (14.0-18.0); Mean Corpuscular HGB Conc 30.4 g/dl (32-36); Mean Corpuscular Hemoglobin 29.0 pg (26-34); Mean Corpuscular Volume 95.3 fl (80-100); Platelet Count Result 302 k/mm3 (150-375); Red Blood Count 3.83 M/mm3 (4.6-6.20); White Blood Count 11.1 K/mm3 (4.5-10.0)
[2024-12-10 07:12] LABS: Anion Gap 5 mmol/L (4-12); Blood Urea Nitrogen 12 mg/dL (9-20); Calcium 8.8 mg/dL (8.4-10.2); Carbon Dioxide 28 mmol/L (22-30); Chloride 105 mmol/L (98-107); Estimated CRCL calculation 66 ml/min; Estimated Glomerular Filt Rate > 60; Glucose 105 mg/dL (65-110); Potassium 3.4 mmol/L (3.4-5.0); Sodium 138 mmol/L (137-145)
[2024-12-10] MEDS: ALVIMOPAN 12 MG CAPSULE PO ×2 (09:20→22:16)
[2024-12-10] MEDS: ENOXAPARIN 40 MG/0.4 ML SYRINGE SUB-Q (09:20)
[2024-12-10] MEDS: MEMANTINE 10 MG TABLET PO ×2 (09:21→18:26)
[2024-12-10] MEDS: SERTRALINE HCL 50 MG TABLET 150 MG PO (09:21)
[2024-12-10] MEDS: PANTOPRAZOLE 40 MG TABLET PO (09:21)
--- NOTE | 2024-12-10 10:06 | P.PNGS_ITS ---
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: Qualifiers: Encounter type: subsequent encounter Qualified Code(s): T85.79XD - Infection and inflammatory reaction due to other internal prosthetic devices, implants and grafts, subsequent encounter Code(s): T85.79XA - Infection and inflammatory reaction due to other internal prosthetic devices, implants and grafts, initial encounter Status: Acute (4) Dementia: Qualifiers: Dementia type: unspecified type Dementia severity: unspecified severity Dementia behavioral or psychological symptom: unspecified whether behavioral, psychotic, or mood disturbance or anxiety Qualified Code(s): F03.90 - Unspecified dementia, unspecified severity, without behavioral disturbance, psychotic disturbance, mood disturbance, and anxiety Code(s): F03.90 - Unspecified dementia, unspecified severity, without behavioral disturbance, psychotic disturbance, mood disturbance, and anxiety Status: Chronic Subjective Subjective Date/Time Seen: 12/10/24 10:06 Interval history: Bowels moving. Tolerating full liquids. Pain controlled. Confused at times but redirectable. Exam GI: Inspection: incision (intact with martine, scant bloody drainage) GI Palp: Yes Soft to palpation, No Tenderness to palpation present (GI), No Guarding due to palpation present (GI) and No Rebound tenderness present Auscultation: normal bowel sounds Objective Data Vital Signs Vital Signs: Vital Signs - 24 hr 12/09/24 10:26 12/09/24 14:42 12/09/24 18:42 Temperature 97.8 F 98.4 F 97.9 F Pulse Rate 87 86 80 Respiratory Rate 18 18 20 Blood Pressure 113/57 L 138/74 133/72 Pulse Oximetry 97 99 99 12/09/24 21:20 12/10/24 05:30 Temperature 98.5 F 97.6 F Pulse Rate 88 80 Respiratory Rate 20 20 Blood Pressure 126/63 145/82 H Pulse Oximetry 95 97 Intake/Output Intake/Output: Intake & Output 0612/08/24 12/09/24 12/10/24 23:59 23:59 23:59 23:59 Intake Total 1320 1200 1640 150 Output Total 0 1975 1325 Balance 1320 9207 -093 -1576 Meds/Results Medications: Active Medications Generic Name Dose Route Start Last Admin Trade Name Freq PRN Reason Stop Dose Admin Acetaminophen 650 mg 12/08/24 18:00 12/10/24 05:27 Acetaminophen 325 Mg Tablet PO 650 mg Q6HR NINFA Administration Hydrocodone Bitart/Acetaminophen 1 tab 12/08/24 16:57 12/09/24 14:26 Hydrocodone/Acetaminophen (*Crx) 5-325 Mg Tablet PO 1 tab Q4H PRN Administration Pain Rated 4-6 Alvimopan 12 mg 12/09/24 21:00 12/10/24 09:20 Alvimopan 12 Mg Capsule PO 12/16/24 20:59 12 mg Q12HR NINFA Administration Amlodipine Besylate 5 mg 12/08/24 09:00 12/10/24 09:21 Amlodipine Besylate 5 Mg Tablet PO 5 mg DAILY NINFA Administration Enoxaparin Sodium 40 mg 12/09/24 09:00 12/10/24 09:20 Enoxaparin 40 Mg/0.4 Ml Syringe SUB-Q 40 mg DAILY NINFA Administration Memantine 10 mg 12/07/24 17:00 12/10/24 09:21 Memantine 10 Mg Tablet PO 10 mg BID NINFA Administration Mirtazapine 7.5 mg 12/07/24 21:00 12/09/24 21:06 Mirtazapine 7.5 Mg Tablet PO 7.5 mg HS NINFA Administration Miscellaneous Information 0 each 12/07/24 00:01 12/07/24 21:18 Brexpiprazole Nonform Can Pt Bring From Home? XX 01/06/25 00:00 Not Given CLARIFY NINFA Morphine Sulfate 2 mg 12/08/24 16:57 12/10/24 03:47 Morphine Sulfate (*Crx) 2 Mg/Ml Inj IV PUSH 2 mg Q2H PRN Administration Breakthrough Pain Rated 4-6 or NPO Morphine Sulfate 4 mg 12/08/24 16:57 Morphine Sulfate (*Crx) 4 Mg/Ml Inj IV PUSH Q2H PRN Breakthrough Pain Rated 7-10 or NPO Naloxone HCl 0.1 mg 12/08/24 16:57 Naloxone Hcl 0.4 Mg/Ml Vial IV PUSH Q2M PRN Opiate Reversal Non-Formulary Medication 1 mg 12/08/24 09:00 Brexpiprazole [Rexulti] PO 01/07/25 08:59 DAILY NINFA Ondansetron HCl 4 mg 12/07/24 09:32 Ondansetron Inj 4 Mg/2 Ml Vial IV PUSH Q6H PRN Nausea And Vomiting Pantoprazole Sodium 40 mg 12/08/24 09:00 12/10/24 09:21 Pantoprazole 40 Mg Tablet PO 40 mg QAM NINFA Administration Sertraline HCl 150 mg 12/08/24 09:00 12/10/24 09:21 Sertraline Hcl 50 Mg Tablet PO 150 mg DAILY NINFA Administration Labs Labs: Laboratory Results - last 24 hr 12/09/24 12/10/24 21:24 06:23 WBC 11.1 H RBC 3.83 L Hgb 11.1 L Hct 36.5 L MCV 95.3 MCH 29.0 MCHC 30.4 L RDW 16.7 H Plt Count 302 MPV 10.2 Sodium 138 Potassium 3.4 Chloride 105 Carbon Dioxide 28 Anion Gap 5 BUN 12 Creatinine 0.73 Estim Creat Clear Calc 66 Estimated GFR > 60 Glucose 105 POC Capillary Glucose 123 H Calcium 8.8
[2024-12-10] MEDS: HYDROcodone/acetaminophen (*CRX) 5-325 MG TABLET 1 TAB PO ×2 (10:11→22:17)
--- NOTE | 2024-12-10 13:44 | P.PNIM_ITS ---
Progress Note: A&P Assessment and Plan (1) Dementia: Qualifiers: Dementia type: unspecified type Dementia severity: unspecified severity Dementia behavioral or psychological symptom: unspecified whether behavioral, psychotic, or mood disturbance or anxiety Qualified Code(s): F03.90 - Unspecified dementia, unspecified severity, without behavioral disturbance, psychotic disturbance, mood disturbance, and anxiety Code(s): F03.90 - Unspecified dementia, unspecified severity, without behavioral disturbance, psychotic disturbance, mood disturbance, and anxiety Status: Chronic Assessment and Plan: * Condition chronic and currently stable. * Continue memantine 10 mg po daily and Rexulti 1 mg po daily. * Provide for safety. (2) Iron deficiency anemia: Qualifiers: Iron deficiency anemia type: unspecified iron deficiency Qualified Code(s): D50.9 - Iron deficiency anemia, unspecified Code(s): D50.9 - Iron deficiency anemia, unspecified Status: Chronic Assessment and Plan: * Chronic in nature. * Baseline Hgb is between 9.0-10.0. * Current Hgb is 10.4. * Continue supplemental Iron at 325 mg po BID. 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 * Continue to hold Eliquis currently in the setting of surgery * Recommend resumption of Eliquis when OK with surgery. * SCD's required in meantime for DVT prophylaxis. (4) Benign essential hypertension: Code(s): I10 - Essential (primary) hypertension Status: Chronic Assessment and Plan: * Continue to monitor and trend VS w/BP. * Current BP trend is stable with SBP ranging 1-teens to 150s and DBP ranging 70s-80s * Continue current home medications of Amlodipine 5 mg po daily (5) CHF (congestive heart failure): Code(s): I50.9 - Heart failure, unspecified Status: Chronic Assessment and Plan: * Last echocardiogram dated June 02, 2024 showing a normal left ventricular systolic function with EF 55-60% and grade 1 diastolic dysfunction * Continue current home medications including Bumex 1 mg p.o. daily * Daily weight * Accurate Intake and output. * Does not appear to be in acute exacerbation. * Cardiac diet when able to tolerate solid foods. (6) Diabetes mellitus: Code(s): E11.9 - Type 2 diabetes mellitus without complications Status: Chronic Assessment and Plan: * Check glucose a.c. and HS * Not currently on any home medications. * A1c 5.1 * Diabetic diet when able to tolerate solid foods. 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 No new complaints. Tolerating diet. Pain is controlled. Review of Systems Review of Systems: All systems reviewed & are unremarkable except as noted in HPI and below Exam Narrative: GENERAL: Well-appearing, well-nourished, and in no acute distress. HEAD: Normocephalic, atraumatic. EYES: PERRLA and EOMI. ENT: Nares clear, no rhinorrhea or epistaxis. Mucous membranes moist. NECK: Supple. CHEST: Clear to auscultation. No respiratory distress. HEART: Regular rate and rhythm. No murmur heard. Normal peripheral pulses. ABDOMEN: Soft, nontender, nondistended, normal active bowel sounds. Incision clean dry and intact dressing with some so case noted EXTREMITIES: Normal range of motion. No edema. SKIN: Warm, dry, no rash. NEURO: No focal deficits. Alert and oriented x3. PSYCH: Normal mood and affect. Objective Data Vital Signs Vital Signs: Vital Signs - 24 hr 12/09/24 14:42 12/09/24 18:42 12/09/24 21:20 Temperature 98.4 F 97.9 F 98.5 F Pulse Rate 86 80 88 Respiratory Rate 18 20 20 Blood Pressure 138/74 133/72 126/63 Pulse Oximetry 99 99 95 Oxygen Delivery 12/10/24 05:30 12/10/24 08:00 Temperature 97.6 F Pulse Rate 80 Respiratory Rate 20 Blood Pressure 145/82 H Pulse Oximetry 97 Oxygen Delivery Room Air Intake/Output Intake/Output: Intake & Output 12/07/24 12/08/24 12/09/24 12/10/24 23:59 23:59 23:59 23:59 Intake Total 1320 1200 1640 150 Output Total 0 1975 1325 Balance 1320 6353 -228 -2134 Meds/Results Medications: Active Medications Generic Name Dose Route Start Last Admin Trade Name Freq PRN Reason Stop Dose Admin Acetaminophen 650 mg 12/08/24 18:00 12/10/24 05:27 Acetaminophen 325 Mg Tablet PO 650 mg Q6HR NINFA Administration Hydrocodone Bitart/Acetaminophen 1 tab 12/08/24 16:57 12/10/24 10:11 Hydrocodone/Acetaminophen (*Crx) 5-325 Mg Tablet PO 1 tab Q4H PRN Administration Pain Rated 4-6 Alvimopan 12 mg 12/09/24 21:00 12/10/24 09:20 Alvimopan 12 Mg Capsule PO 12/16/24 20:59 12 mg Q12HR NINFA Administration Amlodipine Besylate 5 mg 12/08/24 09:00 12/10/24 09:21 Amlodipine Besylate 5 Mg Tablet PO 5 mg DAILY NINFA Administration Enoxaparin Sodium 40 mg 12/09/24 09:00 12/10/24 09:20 Enoxaparin 40 Mg/0.4 Ml Syringe SUB-Q 40 mg DAILY NINFA Administration Memantine 10 mg 12/07/24 17:00 12/10/24 09:21 Memantine 10 Mg Tablet PO 10 mg BID NINFA Administration Mirtazapine 7.5 mg 12/07/24 21:00 12/09/24 21:06 Mirtazapine 7.5 Mg Tablet PO 7.5 mg HS NINFA Administration Miscellaneous Information 0 each 12/07/24 00:01 12/07/24 21:18 Brexpiprazole Nonform Can Pt Bring From Home? XX 01/06/25 00:00 Not Given CLARIFY NINFA Morphine Sulfate 2 mg 12/08/24 16:57 12/10/24 03:47 Morphine Sulfate (*Crx) 2 Mg/Ml Inj IV PUSH 2 mg Q2H PRN Administration Breakthrough Pain Rated 4-6 or NPO Morphine Sulfate 4 mg 12/08/24 16:57 Morphine Sulfate (*Crx) 4 Mg/Ml Inj IV PUSH Q2H PRN Breakthrough Pain Rated 7-10 or NPO Naloxone HCl 0.1 mg 12/08/24 16:57 Naloxone Hcl 0.4 Mg/Ml Vial IV PUSH Q2M PRN Opiate Reversal Non-Formulary Medication 1 mg 12/08/24 09:00 Brexpiprazole [Rexulti] PO 01/07/25 08:59 DAILY NINFA Ondansetron HCl 4 mg 12/07/24 09:32 Ondansetron Inj 4 Mg/2 Ml Vial IV PUSH Q6H PRN Nausea And Vomiting Pantoprazole Sodium 40 mg 12/08/24 09:00 12/10/24 09:21 Pantoprazole 40 Mg Tablet PO 40 mg QAM NINFA Administration Sertraline HCl 150 mg 12/08/24 09:00 12/10/24 09:21 Sertraline Hcl 50 Mg Tablet PO 150 mg DAILY NINFA Administration Labs Labs: Laboratory Results - last 24 hr 12/09/24 12/10/24 21:24 06:23 WBC 11.1 H RBC 3.83 L Hgb 11.1 L Hct 36.5 L MCV 95.3 MCH 29.0 MCHC 30.4 L RDW 16.7 H Plt Count 302 MPV 10.2 Sodium 138 Potassium 3.4 Chloride 105 Carbon Dioxide 28 Anion Gap 5 BUN 12 Creatinine 0.73 Estim Creat Clear Calc 66 Estimated GFR > 60 Glucose 105 POC Capillary Glucose 123 H Calcium 8.8
[2024-12-10 14:00] VITALS: BP 116/59; PULSE 97; RESP 18; TEMP 36.8; O2SAT 100
--- NOTE | 2024-12-10 18:39 | PC.NURSE ---
Patient pulled out multiple Ivs. AOx1. Surgeon at bedside notified of no IV access. No IV orders at this time okay to leave out
[2024-12-10 20:00] VITALS: PULSE 89; RESP 18; O2SAT 98
[2024-12-10 20:25] VITALS: BP 139/79; PULSE 89; RESP 18; TEMP 36.4; O2SAT 98
[2024-12-10] MEDS: MIRTAZAPINE 7.5 MG TABLET PO (22:16)
[2024-12-11 04:45] VITALS: BP 137/79; PULSE 91; RESP 18; TEMP 36.6; O2SAT 99
[2024-12-11 06:02] LABS: Hematocrit 33.6 % (42.0-52.0); Hemoglobin 10.2 g/dL (14.0-18.0); Mean Corpuscular HGB Conc 30.4 g/dl (32-36); Mean Corpuscular Hemoglobin 28.6 pg (26-34); Mean Corpuscular Volume 94.1 fl (80-100); Platelet Count Result 262 k/mm3 (150-375); Red Blood Count 3.57 M/mm3 (4.6-6.20); White Blood Count 11.3 K/mm3 (4.5-10.0)
[2024-12-11 06:47] LABS: Anion Gap 9 mmol/L (4-12); Blood Urea Nitrogen 15 mg/dL (9-20); Calcium 8.8 mg/dL (8.4-10.2); Carbon Dioxide 23 mmol/L (22-30); Chloride 106 mmol/L (98-107); Estimated CRCL calculation 68 ml/min; Estimated Glomerular Filt Rate > 60; Glucose 112 mg/dL (65-110); Potassium 3.4 mmol/L (3.4-5.0); Sodium 138 mmol/L (137-145)
--- NOTE | 2024-12-11 09:24 | P.PNIM_ITS ---
Progress Note: A&P Assessment and Plan (1) Dementia: Qualifiers: Dementia type: unspecified type Dementia severity: unspecified severity Dementia behavioral or psychological symptom: unspecified whether behavioral, psychotic, or mood disturbance or anxiety Qualified Code(s): F03.90 - Unspecified dementia, unspecified severity, without behavioral disturbance, psychotic disturbance, mood disturbance, and anxiety Code(s): F03.90 - Unspecified dementia, unspecified severity, without behavioral disturbance, psychotic disturbance, mood disturbance, and anxiety Status: Chronic Assessment and Plan: * Condition chronic and currently stable. * Continue memantine 10 mg po daily and Rexulti 1 mg po daily. * Provide for safety. Confused this a.m.. Will get CT head. Could be delirium (2) Iron deficiency anemia: Qualifiers: Iron deficiency anemia type: unspecified iron deficiency Qualified Code(s): D50.9 - Iron deficiency anemia, unspecified Code(s): D50.9 - Iron deficiency anemia, unspecified Status: Chronic Assessment and Plan: * Chronic in nature. * Baseline Hgb is between 9.0-10.0. * Current Hgb is 10.4. * Continue supplemental Iron at 325 mg po BID. (3) Chronic anticoagulation: Code(s): Z79.01 - terminologist (current) use of anticoagulants Status: Chronic Assessment and Plan: * Secondary to hx of PE's. * Continue to hold Eliquis currently in the setting of surgery * Recommend resumption of Eliquis when OK with surgery. * SCD's required in meantime for DVT prophylaxis. (4) Benign essential hypertension: Code(s): I10 - Essential (primary) hypertension Status: Chronic Assessment and Plan: * Continue to monitor and trend VS w/BP. * Current BP trend is stable with SBP ranging 1-teens to 150s and DBP ranging 70s-80s * Continue current home medications of Amlodipine 5 mg po daily (5) CHF (congestive heart failure): Code(s): I50.9 - Heart failure, unspecified Status: Chronic Assessment and Plan: * Last echocardiogram dated June 02, 2024 showing a normal left ventricular systolic function with EF 55-60% and grade 1 diastolic dysfunction * Continue current home medications including Bumex 1 mg p.o. daily * Daily weight * Accurate Intake and output. * Does not appear to be in acute exacerbation. * Cardiac diet when able to tolerate solid foods. (6) Diabetes mellitus: Code(s): E11.9 - Type 2 diabetes mellitus without complications Status: Chronic Assessment and Plan: * Check glucose a.c. and HS * Not currently on any home medications. * A1c 5.1 * Diabetic diet when able to tolerate solid foods. 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 No events reported by the nursing staff. Labs reviewed. Review of Systems Review of Systems: All systems reviewed & are unremarkable except as noted in HPI and below Exam Narrative: GENERAL: Well-appearing, well-nourished, and in no acute distress. HEAD: Normocephalic, atraumatic. EYES: PERRLA and EOMI. ENT: Nares clear, no rhinorrhea or epistaxis. Mucous membranes moist. NECK: Supple. CHEST: Clear to auscultation. No respiratory distress. HEART: Regular rate and rhythm. No murmur heard. Normal peripheral pulses. ABDOMEN: Soft, nontender, nondistended, normal active bowel sounds. Incision clean dry and intact dressing with some drainage noted EXTREMITIES: Normal range of motion. No edema. SKIN: Warm, dry, no rash. NEURO: No focal deficits. Alert but confused no self PSYCH: Normal mood and affect. Objective Data Vital Signs Vital Signs: Vital Signs - 24 hr 12/10/24 14:00 12/10/24 20:00 12/10/24 20:25 Temperature 98.2 F 97.5 F L Pulse Rate 97 89 89 Respiratory Rate 18 18 18 Blood Pressure 116/59 L 139/79 Pulse Oximetry 100 98 98 Oxygen Delivery Room Air 12/11/24 04:45 Temperature 97.9 F Pulse Rate 91 Respiratory Rate 18 Blood Pressure 137/79 Pulse Oximetry 99 Oxygen Delivery Intake/Output Intake/Output: Intake & Output 12/08/24 12/09/24 12/10/24 12/11/24 23:59 23:59 23:59 23:59 Intake Total 1200 1640 390 320 Output Total 0 9640 1325 Balance 6205 -490 -311 320 Meds/Results Medications: Active Medications Generic Name Dose Route Start Last Admin Trade Name Freq PRN Reason Stop Dose Admin Acetaminophen 650 mg 12/08/24 18:00 12/11/24 06:36 Acetaminophen 325 Mg Tablet PO Not Given Q6HR NINFA Hydrocodone Bitart/Acetaminophen 1 tab 12/08/24 16:57 12/10/24 22:17 Hydrocodone/Acetaminophen (*Crx) 5-325 Mg Tablet PO 1 tab Q4H PRN Administration Pain Rated 4-6 Alvimopan 12 mg 12/09/24 21:00 12/10/24 22:16 Alvimopan 12 Mg Capsule PO 12/16/24 20:59 12 mg Q12HR NINFA Administration Amlodipine Besylate 5 mg 12/08/24 09:00 12/10/24 09:21 Amlodipine Besylate 5 Mg Tablet PO 5 mg DAILY NINFA Administration Enoxaparin Sodium 40 mg 12/09/24 09:00 12/10/24 09:20 Enoxaparin 40 Mg/0.4 Ml Syringe SUB-Q 40 mg DAILY NINFA Administration Memantine 10 mg 12/07/24 17:00 12/10/24 18:26 Memantine 10 Mg Tablet PO 10 mg BID NINFA Administration Mirtazapine 7.5 mg 12/07/24 21:00 12/10/24 22:16 Mirtazapine 7.5 Mg Tablet PO 7.5 mg HS NINFA Administration Miscellaneous Information 0 each 12/07/24 00:01 12/07/24 21:18 Brexpiprazole Nonform Can Pt Bring From Home? XX 01/06/25 00:00 Not Given CLARIFY NINFA Morphine Sulfate 2 mg 12/08/24 16:57 12/10/24 03:47 Morphine Sulfate (*Crx) 2 Mg/Ml Inj IV PUSH 2 mg Q2H PRN Administration Breakthrough Pain Rated 4-6 or NPO Morphine Sulfate 4 mg 12/08/24 16:57 Morphine Sulfate (*Crx) 4 Mg/Ml Inj IV PUSH Q2H PRN Breakthrough Pain Rated 7-10 or NPO Naloxone HCl 0.1 mg 12/08/24 16:57 Naloxone Hcl 0.4 Mg/Ml Vial IV PUSH Q2M PRN Opiate Reversal Non-Formulary Medication 1 mg 12/08/24 09:00 Brexpiprazole [Rexulti] PO 01/07/25 08:59 DAILY NINFA Ondansetron HCl 4 mg 12/07/24 09:32 Ondansetron Inj 4 Mg/2 Ml Vial IV PUSH Q6H PRN Nausea And Vomiting Pantoprazole Sodium 40 mg 12/08/24 09:00 12/10/24 09:21 Pantoprazole 40 Mg Tablet PO 40 mg QAM NINFA Administration Sertraline HCl 150 mg 12/08/24 09:00 12/10/24 09:21 Sertraline Hcl 50 Mg Tablet PO 150 mg DAILY NINFA Administration Labs Labs: Laboratory Results - last 24 hr 12/10/24 12/11/24 20:28 05:41 WBC 11.3 H RBC 3.57 L Hgb 10.2 L Hct 33.6 L MCV 94.1 MCH 28.6 MCHC 30.4 L RDW 16.4 H Plt Count 262 MPV 9.9 Sodium 138 Potassium 3.4 Chloride 106 Carbon Dioxide 23 Anion Gap 9 BUN 15 Creatinine 0.71 Estim Creat Clear Calc 68 Estimated GFR > 60 Glucose 112 H POC Capillary Glucose 111 H Calcium 8.8
[2024-12-11] MEDS: [UNRECOGNIZED DRUG - REMARK] XX (10:34)
[2024-12-11] MEDS: ALVIMOPAN 12 MG CAPSULE PO ×2 (10:35→21:01)
[2024-12-11] MEDS: SERTRALINE HCL 50 MG TABLET 150 MG PO (10:35)
[2024-12-11] MEDS: MEMANTINE 10 MG TABLET PO ×2 (10:36→18:16)
[2024-12-11] MEDS: PANTOPRAZOLE 40 MG TABLET PO (10:36)
[2024-12-11] MEDS: ENOXAPARIN 40 MG/0.4 ML SYRINGE SUB-Q (10:40)
[2024-12-11] MEDS: ACETAMINOPHEN 325 MG TABLET 650 MG PO ×2 (13:04→18:16)
--- NOTE | 2024-12-11 13:14 | P.PNGS_ITS ---
Progress Note: A&P Assessment and Plan (1) Abscess of sigmoid colon due to diverticulitis: Code(s): K57.20 - Diverticulitis of large intestine with perforation and abscess without bleeding Status: Chronic Assessment and Plan: * Doing well POD#3. Tolerating low fiber diet and bowels are moving. * Continue daily gauze dressing changes to midline incision * Increase activity. Will order PT/OT for discharge planning. * Could possibly discharge tomorrow. CC will talk with the [facility] care facility regarding discharging back to their facility, possibly with home health. 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: Qualifiers: Encounter type: subsequent encounter Qualified Code(s): T85.79XD - Infection and inflammatory reaction due to other internal prosthetic devices, implants and grafts, subsequent encounter Code(s): T85.79XA - Infection and inflammatory reaction due to other internal prosthetic devices, implants and grafts, initial encounter Status: Acute (4) Dementia: Qualifiers: Dementia type: unspecified type Dementia severity: unspecified severity Dementia behavioral or psychological symptom: unspecified whether behavioral, psychotic, or mood disturbance or anxiety Qualified Code(s): F03.90 - Unspecified dementia, unspecified severity, without behavioral disturbance, psychotic disturbance, mood disturbance, and anxiety Code(s): F03.90 - Unspecified dementia, unspecified severity, without behavioral dist urbance, psychotic disturbance, mood disturbance, and anxiety Status: Chronic Plan I have discussed the patient's case and plan of care with Dr. Sanches. Subjective Subjective Date/Time Seen: 12/11/24 13:14 Post Op day: 3 (Open sigmoid colectomy with colorectal anastomosis, Removal of infected left inguinal and right inguinal mesh) Patient reports: tolerating a regular diet, flatus and bowel movement Interval history: Patient seen with the sitter at the bedside. He has no complaints. He denies any abdominal pain or nausea. He tolerated his breakfast and lunch well per the sitter. The sitter also reports him having some hallucinations this morning and seemed more confused, but this improved throughout the day. He is now alert and at baseline confusion with his dementia. Exam Const: General: comfortable and no acute distress Orientation/consciousness: oriented to person, oriented to place and confusion GI: Inspection: non-distended GI Palp: Yes Soft to palpation, No Tenderness to palpation present (GI) and No Guarding due to palpation present (GI) Auscultation: normal bowel sounds Other: Midline incision with martine intact and small infraumbilical wound with scant slightly cloudy serosanguineous drainage, no surrounding erythema or tenderness to palpation. Objective Data Vital Signs Vital Signs: Vital Signs - 24 hr 12/10/24 14:00 12/10/24 20:00 12/10/24 20:25 Temperature 98.2 F 97.5 F L Pulse Rate 97 89 89 Respiratory Rate 18 18 18 Blood Pressure 116/59 L 139/79 Pulse Oximetry 100 98 98 Oxygen Delivery Room Air 12/11/24 04:45 12/11/24 08:00 Temperature 97.9 F Pulse Rate 91 Respiratory Rate 18 Blood Pressure 137/79 Pulse Oximetry 99 Oxygen Delivery Room Air Intake/Output Intake/Output: Intake & Output 12/08/24 12/09/24 12/10/24 12/11/24 23:59 23:59 23:59 23:59 Intake Total 1200 1640 390 320 Output Total 0 1975 1325 Balance 1200 -335 -935 320 Meds/Results Medications: Active Medications Generic Name Dose Route Start Last Admin Trade Name Freq PRN Reason Stop Dose Admin Acetaminophen 650 mg 12/08/24 18:00 12/11/24 13:04 Acetaminophen 325 Mg Tablet PO 650 mg Q6HR NINFA Administration Hydrocodone Bitart/Acetaminophen 1 tab 12/08/24 16:57 12/10/24 22:17 Hydrocodone/Acetaminophen (*Crx) 5-325 Mg Tablet PO 1 tab Q4H PRN Administration Pain Rated 4-6 Alvimopan 12 mg 12/09/24 21:00 12/11/24 10:35 Alvimopan 12 Mg Capsule PO 12/16/24 20:59 12 mg Q12HR NINFA Administration Amlodipine Besylate 5 mg 12/08/24 09:00 12/11/24 10:36 Amlodipine Besylate 5 Mg Tablet PO 5 mg DAILY NINFA Administration Enoxaparin Sodium 40 mg 12/09/24 09:00 12/11/24 10:40 Enoxaparin 40 Mg/0.4 Ml Syringe SUB-Q 40 mg DAILY NINFA Administration Memantine 10 mg 12/07/24 17:00 12/11/24 10:36 Memantine 10 Mg Tablet PO 10 mg BID NINFA Administration Mirtazapine 7.5 mg 12/07/24 21:00 12/10/24 22:16 Mirtazapine 7.5 Mg Tablet PO 7.5 mg HS NINFA Administration Miscellaneous Information 0 each 12/07/24 00:01 12/11/24 10:35 Brexpiprazole Nonform Can Pt Bring From Home? XX 01/06/25 00:00 Not Given CLARIFY NINFA Morphine Sulfate 2 mg 12/08/24 16:57 12/10/24 03:47 Morphine Sulfate (*Crx) 2 Mg/Ml Inj IV PUSH 2 mg Q2H PRN Administration Breakthrough Pain Rated 4-6 or NPO Morphine Sulfate 4 mg 12/08/24 16:57 Morphine Sulfate (*Crx) 4 Mg/Ml Inj IV PUSH Q2H PRN Breakthrough Pain Rated 7-10 or NPO Naloxone HCl 0.1 mg 12/08/24 16:57 Naloxone Hcl 0.4 Mg/Ml Vial IV PUSH Q2M PRN Opiate Reversal Non-Formulary Medication 1 mg 12/08/24 09:00 Brexpiprazole [Rexulti] PO 01/07/25 08:59 DAILY NINFA Ondansetron HCl 4 mg 12/07/24 09:32 Ondansetron Inj 4 Mg/2 Ml Vial IV PUSH Q6H PRN Nausea And Vomiting Pantoprazole Sodium 40 mg 12/08/24 09:00 12/11/24 10:36 Pantoprazole 40 Mg Tablet PO 40 mg QAM NINFA Administration Sertraline HCl 150 mg 12/08/24 09:00 12/11/24 10:35 Sertraline Hcl 50 Mg Tablet PO 150 mg DAILY NINFA Administration Radiology Results: ITS Impressions Head CT 12/11/24 10:16 IMPRESSION: No acute intracranial findings. Labs Labs: Laboratory Results - last 24 hr 12/10/24 12/11/24 20:28 05:41 WBC 11.3 H RBC 3.57 L Hgb 10.2 L Hct 33.6 L MCV 94.1 MCH 28.6 MCHC 30.4 L RDW 16.4 H Plt Count 262 MPV 9.9 Sodium 138 Potassium 3.4 Chloride 106 Carbon Dioxide 23 Anion Gap 9 BUN 15 Creatinine 0.71 Estim Creat Clear Calc 68 Estimated GFR > 60 Glucose 112 H POC Capillary Glucose 111 H Calcium 8.8
[2024-12-11 14:00] VITALS: BP 152/61; PULSE 88; RESP 16; TEMP 36.6; O2SAT 100
[2024-12-11 20:24] VITALS: BP 127/78; PULSE 93; RESP 16; TEMP 36.9; O2SAT 100
[2024-12-11] MEDS: MIRTAZAPINE 7.5 MG TABLET PO (21:01)
[2024-12-12 05:29] VITALS: BP 145/76; PULSE 85; RESP 18; TEMP 36.6; O2SAT 99
[2024-12-12 06:18] LABS: Hematocrit 33.6 % (42.0-52.0); Hemoglobin 10.3 g/dL (14.0-18.0); Immature Granulocyte Percent A 0.5 % (0-0.5); Lymphocytes Absolute Auto 0.44 K/mm3 (0.9-3.2); Mean Corpuscular HGB Conc 30.7 g/dl (32-36); Mean Corpuscular Hemoglobin 28.7 pg (26-34); Mean Corpuscular Volume 93.6 fl (80-100); Nucleated Red Blood Cells Absolute Auto 0.000 K/mm3 (0.0-0.012); Nucleated Red Blood Cells Perc 0.0 % (0.0-0.2); Platelet Count Result 253 k/mm3 (150-375); Red Blood Count 3.59 M/mm3 (4.6-6.20); White Blood Count 7.6 K/mm3 (4.5-10.0)
[2024-12-12 06:39] LABS: Alanine Aminotransferase 11 U/L (6-50); Albumin Level 3.4 g/dL (3.5-5.1); Alkaline Phosphatase 68 U/L (38-126); Anion Gap 8 mmol/L (4-12); Aspartate Amino Transferase 16 U/L (17-59); Bilirubin,Total 0.7 mg/dL (0.2-1.3); Blood Urea Nitrogen 17 mg/dL (9-20); Calcium 8.6 mg/dL (8.4-10.2); Carbon Dioxide 25 mmol/L (22-30); Chloride 106 mmol/L (98-107); Estimated CRCL calculation 72 ml/min; Estimated Glomerular Filt Rate > 60; Glucose 108 mg/dL (65-110); Magnesium 1.8 mg/dL (1.6-2.3); Potassium 3.2 mmol/L (3.4-5.0); Sodium 139 mmol/L (137-145); Total Protein 6.3 g/dL (6.3-8.2)
[2024-12-12 08:00] VITALS: PULSE 85; RESP 18; O2SAT 99
[2024-12-12] MEDS: MEMANTINE 10 MG TABLET PO ×2 (10:29→17:10)
[2024-12-12] MEDS: ALVIMOPAN 12 MG CAPSULE PO ×2 (10:29→20:54)
[2024-12-12] MEDS: SERTRALINE HCL 50 MG TABLET 150 MG PO (10:29)
[2024-12-12] MEDS: ENOXAPARIN 40 MG/0.4 ML SYRINGE SUB-Q ×2 (10:30→10:43)
[2024-12-12] MEDS: PANTOPRAZOLE 40 MG TABLET PO (10:30)
[2024-12-12] MEDS: POTASSIUM CHLORIDE 20 MEQ ER TABLET 40 MEQ PO (10:43)
--- NOTE | 2024-12-12 11:41 | P.PNIM_ITS ---
Progress Note: A&P Assessment and Plan (1) Dementia: Qualifiers: Dementia type: unspecified type Dementia severity: unspecified severity Dementia behavioral or psychological symptom: unspecified whether behavioral, psychotic, or mood disturbance or anxiety Qualified Code(s): F03.90 - Unspecified dementia, unspecified severity, without behavioral disturbance, psychotic disturbance, mood disturbance, and anxiety Code(s): F03.90 - Unspecified dementia, unspecified severity, without behavioral disturbance, psychotic disturbance, mood disturbance, and anxiety Status: Chronic Assessment and Plan: * Condition chronic and currently stable. * Continue memantine 10 mg po daily and Rexulti 1 mg po daily. * Provide for safety. Confused 12/11/2024 CT head negative. Fluctuating mental status. Likely delirium. Improved now (2) Iron deficiency anemia: Qualifiers: Iron deficiency anemia type: unspecified iron deficiency Qualified C ode(s): D50.9 - Iron deficiency anemia, unspecified Code(s): D50.9 - Iron deficiency anemia, unspecified Status: Chronic Assessment and Plan: * Chronic in nature. * Baseline Hgb is between 9.0-10.0. * Current Hgb is 10.4. * Continue supplemental Iron at 325 mg po BID. (3) Chronic anticoagulation: Code(s): Z79.01 - detention (current) use of anticoagulants Status: Chronic Assessment and Plan: * Secondary to hx of PE's. * Continue to hold Eliquis currently in the setting of surgery * Recommend resumption of Eliquis when OK with surgery. * SCD's required in meantime for DVT prophylaxis. (4) Benign essential hypertension: Code(s): I10 - Essential (primary) hypertension Status: Chronic Assessment and Plan: * Continue to monitor and trend VS w/BP. * Current BP trend is stable with SBP ranging 1-teens to 150s and DBP ranging 70s-80s * Continue current home medications of Amlodipine 5 mg po daily (5) CHF (congestive heart failure): Code(s): I50.9 - Heart failure, unspecified Status: Chronic Assessment and Plan: * Last echocardiogram dated June 02, 2024 showing a normal left ventricular systolic function with EF 55-60% and grade 1 diastolic dysfunction * Continue current home medications including Bumex 1 mg p.o. daily * Daily weight * Accurate Intake and output. * Does not appear to be in acute exacerbation. * Cardiac diet when able to tolerate solid foods. (6) Diabetes mellitus: Code(s): E11.9 - Type 2 diabetes mellitus without complications Status: Chronic Assessment and Plan: * Check glucose a.c. and HS * Not currently on any home medications. * A1c 5.1 * Diabetic diet when able to tolerate solid foods. 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 Confusion has improved. Denies any new complaints. abdomen is sore from the surgery. Awaiting placement. Review of Systems Review of Systems: All systems reviewed & are unremarkable except as noted in HPI and below Exam Narrative: GENERAL: Well-appearing, well-nourished, and in no acute distress. HEAD: Normocephalic, atraumatic. EYES: PERRLA and EOMI. ENT: Nares clear, no rhinorrhea or epistaxis. Mucous membranes moist. NECK: Supple. CHEST: Clear to auscultation. No respiratory distress. HEART: Regular rate and rhythm. No murmur heard. Normal peripheral pulses. ABDOMEN: Soft, nontender, nondistended, normal active bowel sounds. Incision clean dry and intact dressing with some drainage noted EXTREMITIES: Normal range of motion. No edema. SKIN: Warm, dry, no rash. NEURO: No focal deficits. Alert but confused no self PSYCH: Normal mood and affect. Objective Data Vital Signs Vital Signs: Vital Signs - 24 hr 12/11/24 14:00 12/11/24 20:00 12/11/24 20:24 Temperature 97.9 F 98.5 F Pulse Rate 88 93 Respiratory Rate 16 16 Blood Pressure 152/61 H 127/78 Pulse Oximetry 100 100 Oxygen Delivery Room Air 12/12/24 05:29 12/12/24 08:00 12/12/24 10:23 Temperature 97.8 F Pulse Rate 85 85 Respiratory Rate 18 18 Blood Pressure 145/76 H Pulse Oximetry 99 99 Oxygen Delivery Room Air Room Air Intake/Output Intake/Output: Intake & Output 12/09/24 12/10/24 12/11/24 12/12/24 23:59 23:59 23:59 23:59 Intake Total 1640 390 620 240 Output Total 9457 1325 Balance -335 -088 651 240 Meds/Results Medications: Active Medications Generic Name Dose Route Start Last Admin Trade Name Freq PRN Reason Stop Dose Admin Acetaminophen 650 mg 12/08/24 18:00 12/12/24 06:14 Acetaminophen 325 Mg Tablet PO Not Given Q6HR NINFA Hydrocodone Bitart/Acetaminophen 1 tab 12/08/24 16:57 12/10/24 22:17 Hydrocodone/Acetaminophen (*Crx) 5-325 Mg Tablet PO 1 tab Q4H PRN Administration Pain Rated 4-6 Alvimopan 12 mg 12/09/24 21:00 12/12/24 10:29 Alvimopan 12 Mg Capsule PO 12/16/24 20:59 12 mg Q12HR NINFA Administration Amlodipine Besylate 5 mg 12/08/24 09:00 12/12/24 10:29 Amlodipine Besylate 5 Mg Tablet PO 5 mg DAILY NINFA Administration Enoxaparin Sodium 40 mg 12/09/24 09:00 12/12/24 10:43 Enoxaparin 40 Mg/0.4 Ml Syringe SUB-Q 40 mg DAILY NINFA Administration Memantine 10 mg 12/07/24 17:00 12/12/24 10:29 Memantine 10 Mg Tablet PO 10 mg BID NINFA Administration Mirtazapine 7.5 mg 12/07/24 21:00 12/11/24 21:01 Mirtazapine 7.5 Mg Tablet PO 7.5 mg HS NINFA Administration Miscellaneous Information 0 each 12/07/24 00:01 12/11/24 10:35 Brexpiprazole Nonform Can Pt Bring From Home? XX 01/06/25 00:00 Not Given CLARIFY NINFA Morphine Sulfate 2 mg 12/08/24 16:57 12/10/24 03:47 Morphine Sulfate (*Crx) 2 Mg/Ml Inj IV PUSH 2 mg Q2H PRN Administration Breakthrough Pain Rated 4-6 or NPO Morphine Sulfate 4 mg 12/08/24 16:57 Morphine Sulfate (*Crx) 4 Mg/Ml Inj IV PUSH Q2H PRN Breakthrough Pain Rated 7-10 or NPO Naloxone HCl 0.1 mg 12/08/24 16:57 Naloxone Hcl 0.4 Mg/Ml Vial IV PUSH Q2M PRN Opiate Reversal Non-Formulary Medication 1 mg 12/08/24 09:00 Brexpiprazole [Rexulti] PO 01/07/25 08:59 DAILY NINFA Ondansetron HCl 4 mg 12/07/24 09:32 Ondansetron Inj 4 Mg/2 Ml Vial IV PUSH Q6H PRN Nausea And Vomiting Pantoprazole Sodium 40 mg 12/08/24 09:00 12/12/24 10:30 Pantoprazole 40 Mg Tablet PO 40 mg QAM NINFA Administration Sertraline HCl 150 mg 12/08/24 09:00 12/12/24 10:29 Sertraline Hcl 50 Mg Tablet PO 150 mg DAILY NINFA Administration Radiology Results: ITS Impressions Head CT 12/11/24 10:16 IMPRESSION: No acute intracranial findings. Labs Labs: Laboratory Results - last 24 hr 12/12/24 06:07 WBC 7.6 RBC 3.59 L Hgb 10.3 L Hct 33.6 L MCV 93.6 MCH 28.7 MCHC 30.7 L RDW 16.0 H Plt Count 253 MPV 9.8 Immature Gran % (Auto) 0.5 Neut % (Auto) 78.9 H Lymph % (Auto) 5.8 L [place] % (Auto) 8.8 H Eos % (Auto) 5.7 H Baso % (Auto) 0.3 Lymph # (Auto) 0.44 L [place] # (Auto) 0.7 H Eos # (Auto) 0.4 H Baso # (Auto) 0.0 Abs Immat Gran (auto) 0.04 H Absolute Neuts (auto) 6.0 Absolute Nucleated RBC 0.000 Nucleated RBC % 0.0 Sodium 139 Potassium 3.2 L Chloride 106 Carbon Dioxide 25 Anion Gap 8 BUN 17 Creatinine 0.67 L Estim Creat Clear Calc 72 Estimated GFR > 60 Glucose 108 Calcium 8.6 Magnesium 1.8 Total Bilirubin 0.7 AST 16 L ALT 11 Alkaline Phosphatase 68 Total Protein 6.3 Albumin 3.4 L
--- NOTE | 2024-12-12 13:58 | P.PNGS_ITS ---
Progress Note: A&P Assessment and Plan (1) Abscess of sigmoid colon due to diverticulitis: Code(s): K57.20 - Diverticulitis of large intestine with perforation and abscess without bleeding Status: Chronic Assessment and Plan: * Continues to do well. Tolerating a diet and bowels are moving. * Continue daily gauze dressing changes to midline incision * CC has spoke with [facility]. They will evaluate the patient tomorrow morning for possible placement back to the [facility] on discharge vs rehab. PT/OT also evaluating patient today for discharge planning. 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: Qualifiers: Encounter type: subsequent encounter Qualified Code(s): T85.79XD - Infection and inflammatory reaction due to other internal prosthetic devices, implants and grafts, subsequent encounter Code(s): T85.79XA - Infection and inflammatory reaction due to other internal prosthetic devices, implants and grafts, initial encounter Status: Acute (4) Dementia: Qualifiers: Dementia type: unspecified type Dementia severity: unspecified severity Dementia behavioral or psychological symptom: unspecified whether behavioral, psychotic, or mood disturbance or anxiety Qualified Code(s): F03.90 - Unspecified dementia, unspecified severity, without behavioral disturbance, psychotic disturbance, mood disturbance, and anxiety Code(s): F03.90 - Unspecified dementia, unspecified severity, without behavioral disturbance, psychotic disturbance, mood disturbance, and anxiety Status: Chronic Plan I have discussed the patient's case and plan of care with Dr. Sanches. Subjective Subjective Date/Time Seen: 12/12/24 13:58 Patient reports: no new complaints, tolerating a regular diet, voiding w/o difficulty, flatus, bowel movement and afebrile Interval history: Patient seen with no family at the bedside. He is alert and answers questions appropriately. He denies any abdominal pain, nausea, or vomiting. He is eating well. No acute changes overnight. Care coordination reported that the [facility] facility has to evaluate the patient prior to accepting him back on discharge. They will have somebody come to evaluate him tomorrow at 9:30 a.m.. Exam Const: General: comfortable and no acute distress GI: Inspection: no abdominal wall ecchymosis and non-distended GI Palp: Yes Soft to palpation, No Tenderness to palpation present (GI) and No Guarding due to palpation present (GI) Auscultation: normal bowel sounds Other: Midline incision with martine intact and small infraumbilical wound with moderate amount of mostly serous drainage, no surrounding erythema or tenderness to palpation. Extrem: General: no calf tenderness and no edema Objective Data Vital Signs Vital Signs: Vital Signs - 24 hr 12/11/24 14:00 12/11/24 20:00 12/11/24 20:24 Temperature 97.9 F 98.5 F Pulse Rate 88 93 Respiratory Rate 16 16 Blood Pressure 152/61 H 127/78 Pulse Oximetry 100 100 Oxygen Delivery Room Air 12/12/24 05:29 12/12/24 08:00 12/12/24 10:23 Temperature 97.8 F Pulse Rate 85 85 Respiratory Rate 18 18 Blood Pressure 145/76 H Pulse Oximetry 99 99 Oxygen Delivery Room Air Room Air Intake/Output Intake/Output: Intake & Output 12/09/24 12/10/24 12/11/24 12/12/24 23:59 23:59 23:59 23:59 Intake Total 1640 390 620 480 Output Total 5812 1325 Balance -335 938 830 480 Meds/Results Medications: Active Medications Generic Name Dose Route Start Last Admin Trade Name Freq PRN Reason Stop Dose Admin Acetaminophen 650 mg 12/08/24 18:00 12/12/24 06:14 Acetaminophen 325 Mg Tablet PO Not Given Q6HR NINFA Hydrocodone Bitart/Acetaminophen 1 tab 12/08/24 16:57 12/10/24 22:17 Hydrocodone/Acetaminophen (*Crx) 5-325 Mg Tablet PO 1 tab Q4H PRN Administration Pain Rated 4-6 Alvimopan 12 mg 12/09/24 21:00 12/12/24 10:29 Alvimopan 12 Mg Capsule PO 12/16/24 20:59 12 mg Q12HR NINFA Administration Amlodipine Besylate 5 mg 12/08/24 09:00 12/12/24 10:29 Amlodipine Besylate 5 Mg Tablet PO 5 mg DAILY NINFA Administration Enoxaparin Sodium 40 mg 12/09/24 09:00 12/12/24 10:43 Enoxaparin 40 Mg/0.4 Ml Syringe SUB-Q 40 mg DAILY NINFA Administration Memantine 10 mg 12/07/24 17:00 12/12/24 10:29 Memantine 10 Mg Tablet PO 10 mg BID NINFA Administration Mirtazapine 7.5 mg 12/07/24 21:00 12/11/24 21:01 Mirtazapine 7.5 Mg Tablet PO 7.5 mg HS NINFA Administration Miscellaneous Information 0 each 12/07/24 00:01 12/11/24 10:35 Brexpiprazole Nonform Can Pt Bring From Home? XX 01/06/25 00:00 Not Given CLARIFY NINFA Morphine Sulfate 2 mg 12/08/24 16:57 12/10/24 03:47 Morphine Sulfate (*Crx) 2 Mg/Ml Inj IV PUSH 2 mg Q2H PRN Administration Breakthrough Pain Rated 4-6 or NPO Morphine Sulfate 4 mg 12/08/24 16:57 Morphine Sulfate (*Crx) 4 Mg/Ml Inj IV PUSH Q2H PRN Breakthrough Pain Rated 7-10 or NPO Naloxone HCl 0.1 mg 12/08/24 16:57 Naloxone Hcl 0.4 Mg/Ml Vial IV PUSH Q2M PRN Opiate Reversal Non-Formulary Medication 1 mg 12/08/24 09:00 Brexpiprazole [Rexulti] PO 01/07/25 08:59 DAILY NINFA Ondansetron HCl 4 mg 12/07/24 09:32 Ondansetron Inj 4 Mg/2 Ml Vial IV PUSH Q6H PRN Nausea And Vomiting Pantoprazole Sodium 40 mg 12/08/24 09:00 12/12/24 10:30 Pantoprazole 40 Mg Tablet PO 40 mg QAM NINFA Administration Sertraline HCl 150 mg 12/08/24 09:00 12/12/24 10:29 Sertraline Hcl 50 Mg Tablet PO 150 mg DAILY NINFA Administration Radiology Results: ITS Impressions Head CT 12/11/24 10:16 IMPRESSION: No acute intracranial findings. Labs Labs: Laboratory Results - last 24 hr 12/12/24 06:07 WBC 7.6 RBC 3.59 L Hgb 10.3 L Hct 33.6 L MCV 93.6 MCH 28.7 MCHC 30.7 L RDW 16.0 H Plt Count 253 MPV 9.8 Immature Gran % (Auto) 0.5 Neut % (Auto) 78.9 H Lymph % (Auto) 5.8 L [place] % (Auto) 8.8 H Eos % (Auto) 5.7 H Baso % (Auto) 0.3 Lymph # (Auto) 0.44 L [place] # (Auto) 0.7 H Eos # (Auto) 0.4 H Baso # (Auto) 0.0 Abs Immat Gran (auto) 0.04 H Absolute Neuts (auto) 6.0 Absolute Nucleated RBC 0.000 Nucleated RBC % 0.0 Sodium 139 Potassium 3.2 L Chloride 106 Carbon Dioxide 25 Anion Gap 8 BUN 17 Creatinine 0.67 L Estim Creat Clear Calc 72 Estimated GFR > 60 Glucose 108 Calcium 8.6 Magnesium 1.8 Total Bilirubin 0.7 AST 16 L ALT 11 Alkaline Phosphatase 68 Total Protein 6.3 Albumin 3.4 L
[2024-12-12 14:00] VITALS: BP 106/53; PULSE 98; RESP 16; TEMP 37; O2SAT 98
[2024-12-12] MEDS: HYDROcodone/acetaminophen (*CRX) 5-325 MG TABLET 1 TAB PO (14:47)
[2024-12-12] MEDS: ACETAMINOPHEN 325 MG TABLET 650 MG PO ×2 (15:00→17:10)
[2024-12-12 20:15] VITALS: BP 109/60; PULSE 80; RESP 16; TEMP 36.2; O2SAT 98
[2024-12-12] MEDS: MIRTAZAPINE 7.5 MG TABLET PO (20:54)
[2024-12-13 06:00] VITALS: BP 149/62; PULSE 78; RESP 20; TEMP 36.6; O2SAT 98
[2024-12-13 07:03] LABS: Anion Gap 7 mmol/L (4-12); Blood Urea Nitrogen 28 mg/dL (9-20); Calcium 8.6 mg/dL (8.4-10.2); Carbon Dioxide 26 mmol/L (22-30); Chloride 105 mmol/L (98-107); Estimated CRCL calculation 39 ml/min; Estimated Glomerular Filt Rate 53; Glucose 112 mg/dL (65-110); Potassium 3.3 mmol/L (3.4-5.0); Sodium 138 mmol/L (137-145)
[2024-12-13 08:00] VITALS: PULSE 78; RESP 20; O2SAT 98
[2024-12-13] MEDS: SERTRALINE HCL 50 MG TABLET 150 MG PO (09:12)
[2024-12-13] MEDS: PANTOPRAZOLE 40 MG TABLET PO (09:12)
[2024-12-13] MEDS: ALVIMOPAN 12 MG CAPSULE PO ×2 (09:12→20:18)
[2024-12-13] MEDS: MEMANTINE 10 MG TABLET PO ×2 (09:13→17:44)
--- NOTE | 2024-12-13 11:24 | PCNFU ---
Nutrition Follow-Up Complete: Inadequate oral intake related to sigmoid colectomy as evidenced by NPO Goal:Diet advancement Improve PO intake when diet is advanced Pt current nutrition is Low fiber diet. Nutrition recommendation: Add Ensure BID Last recorded weight is 82.3 kg. Bowel Motility: +BM 12/11 Labs Reviewed: Hgb:10.3, HCT:33.6, K:3.3, BUN:28, Glu:112 Meds Noted: remeron, protonix, lovenox Skin: WNL Additional Notes: pt on a low fiber diet, intake good at 75-100%, tolerating well with possible discharge today. Agree with orders. MOnitoring diet orders, weights, labs, output, plan of care Follow up in 7 days
--- NOTE | 2024-12-13 12:00 | P.PNGS_ITS ---
Progress Note: A&P Assessment and Plan (1) Abscess of sigmoid colon due to diverticulitis: Code(s): K57.20 - Diverticulitis of large intestine with perforation and abscess without bleeding Status: Chronic Assessment and Plan: * Continues to do well. Tolerating a diet and bowels are moving. * Continue daily gauze dressing changes to midline incision * Patient was evaluated by [facility] this morning. They suggest that he go to rehab to gain strength before returning to facility. Spoke with CC who stated that he has been accepted at [facility]. * Surgically stable for discharge. 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: Qualifiers: Encounter type: subsequent encounter Qualified Code(s): T85.79XD - Infection and inflammatory reaction due to other internal prosthetic devices, implants and grafts, subsequent encounter Code(s): T85.79XA - Infection and inflammatory reaction due to other internal prosthetic devices, implants and grafts, initial encounter Status: Acute (4) Dementia: Qualifiers: Dementia type: unspecified type Dementia severity: unspecified severity Dementia behavioral or psychological symptom: unspecified whether behavioral, psychotic, or mood disturbance or anxiety Qualified Code(s): F03.90 - Unspecified dementia, unspecified severity, without behavioral disturbance, psychotic disturbance, mood disturbance, and anxiety Code(s): F03.90 - Unspecified dementia, unspecified severity, without behavioral disturbance, psychotic disturbance, mood disturbance, and anxiety Status: Chronic Plan I have discussed the patient's case and plan of care with Dr. Sanches. Subjective Subjective Date/Time Seen: 12/13/24 12:00 Patient reports: no new complaints and feels better Interval history: Patient is doing well today. No abdominal pain. No nausea or vomiting. Having bowel movements. [facility] facility evaluated patient this morning and stated that he was benefit from a rehab to gain strength before returning to the facility. Spoke with care coordination who states that he has been accepted at [facility]. Patient got an ultrasound this morning d/t concern for GLORIA. Report still pending. Exam GI: Inspection: normal to inspection, no abdominal wall ecchymosis, non- distended and incision (intact with martine, scant bloody drainage) Auscultation: normal bowel sounds Other: Midline incision with martine intact and small infraumbilical wound with minimal amount of mostly serous drainage, no surrounding erythema or tenderness to palpation. Objective Data Vital Signs Vital Signs: Vital Signs - 24 hr 12/12/24 14:00 12/12/24 20:15 12/13/24 06:00 Temperature 98.6 F 97.2 F L 97.8 F Pulse Rate 98 80 78 Respiratory Rate 16 16 20 Blood Pressure 106/53 L 109/60 149/62 H Pulse Oximetry 98 98 98 Oxygen Delivery 12/13/24 08:00 Temperature Pulse Rate 78 Respiratory Rate 20 Blood Pressure Pulse Oximetry 98 Oxygen Delivery Room Air Intake/Output Intake/Output: Intake & Output 12/10/24 12/11/24 12/12/24 12/13/24 23:59 23:59 23:59 23:59 Intake Total 466 094 6023 522 Output Total 1325 Balance -473 666 0617 522 Meds/Results Medications: Active Medications Generic Name Dose Route Start Last Admin Trade Name Freq PRN Reason Stop Dose Admin Acetaminophen 650 mg 12/08/24 18:00 12/13/24 09:14 Acetaminophen 325 Mg Tablet PO Not Given Q6HR NINFA Hydrocodone Bitart/Acetaminophen 1 tab 12/08/24 16:57 12/12/24 14:47 Hydrocodone/Acetaminophen (*Crx) 5-325 Mg Tablet PO 1 tab Q4H PRN Administration Pain Rated 4-6 Alvimopan 12 mg 12/09/24 21:00 12/13/24 09:12 Alvimopan 12 Mg Capsule PO 12/16/24 20:59 12 mg Q12HR NINFA Administration Amlodipine Besylate 5 mg 12/08/24 09:00 12/13/24 09:12 Amlodipine Besylate 5 Mg Tablet PO 5 mg DAILY NINFA Administration Enoxaparin Sodium 40 mg 12/09/24 09:00 12/12/24 10:43 Enoxaparin 40 Mg/0.4 Ml Syringe SUB-Q 40 mg DAILY NINFA Administration Memantine 10 mg 12/07/24 17:00 12/13/24 09:13 Memantine 10 Mg Tablet PO 10 mg BID NINFA Administration Mirtazapine 7.5 mg 12/07/24 21:00 12/12/24 20:54 Mirtazapine 7.5 Mg Tablet PO 7.5 mg HS NINFA Administration Miscellaneous Information 0 each 12/07/24 00:01 12/13/24 09:13 Brexpiprazole Nonform Can Pt Bring From Home? XX 01/06/25 00:00 Not Given CLARIFY NINFA Morphine Sulfate 2 mg 12/08/24 16:57 12/10/24 03:47 Morphine Sulfate (*Crx) 2 Mg/Ml Inj IV PUSH 2 mg Q2H PRN Administration Breakthrough Pain Rated 4-6 or NPO Morphine Sulfate 4 mg 12/08/24 16:57 Morphine Sulfate (*Crx) 4 Mg/Ml Inj IV PUSH Q2H PRN Breakthrough Pain Rated 7-10 or NPO Naloxone HCl 0.1 mg 12/08/24 16:57 Naloxone Hcl 0.4 Mg/Ml Vial IV PUSH Q2M PRN Opiate Reversal Non-Formulary Medication 1 mg 12/08/24 09:00 Brexpiprazole [Rexulti] PO 01/07/25 08:59 DAILY NINFA Ondansetron HCl 4 mg 12/07/24 09:32 Ondansetron Inj 4 Mg/2 Ml Vial IV PUSH Q6H PRN Nausea And Vomiting Pantoprazole Sodium 40 mg 12/08/24 09:00 12/13/24 09:12 Pantoprazole 40 Mg Tablet PO 40 mg QAM NINFA Administration Sertraline HCl 150 mg 12/08/24 09:00 12/13/24 09:12 Sertraline Hcl 50 Mg Tablet PO 150 mg DAILY NINFA Administration Radiology Results: ITS Impressions Head CT 12/11/24 10:16 IMPRESSION: No acute intracranial findings. Labs Labs: Laboratory Results - last 24 hr 12/13/24 06:22 Sodium 138 Potassium 3.3 L Chloride 105 Carbon Dioxide 26 Anion Gap 7 BUN 28 H D Creatinine 1.29 Estim Creat Clear Calc 39 Estimated GFR 53 L Glucose 112 H Calcium 8.6
[2024-12-13] MEDS: ACETAMINOPHEN 325 MG TABLET 650 MG PO ×2 (13:06→17:44)
[2024-12-13 14:00] VITALS: BP 101/65; PULSE 76; RESP 18; TEMP 36.4; O2SAT 99
--- NOTE | 2024-12-13 14:16 | PM.IMPN ---
Progress Note: A&P Assessment and Plan (1) Dementia: Qualifiers: Dementia type: unspecified type Dementia severity: unspecified severity Dementia behavioral or psychological symptom: unspecified whether behavioral, psychotic, or mood disturbance or anxiety Qualified Code(s): F03.90 - Unspecified dementia, unspecified severity, without behavioral disturbance, psychotic disturbance, mood disturbance, and anxiety Code(s): F03.90 - Unspecified dementia, unspecified severity, without behavioral disturbance, psychotic disturbance, mood disturbance, and anxiety Status: Chronic Assessment and Plan: He was more confused on 12/11/2024. CT head negative. Fluctuating mental status likely delirium related to surgery, medications. Improved now Continue memantine; Rexulti on hold. Continue Remeron and Zoloft Provide for safety. (2) Iron deficiency anemia: Qualifiers: Iron deficiency anemia type: unspecified iron deficiency Qualified Code(s): D50.9 - Iron deficiency anemia, unspecified Code(s): D50.9 - Iron deficiency anemia, unspecified Status: Chronic Assessment and Plan: Chronic in nature. Baseline Hgb is between 9.0-10.0. Current Hgb is 10.4. Continue to monitor periodically. (3) Chronic anticoagulation: Code(s): Z79.01 - FPC (current) use of anticoagulants Status: Chronic Assessment and Plan: Secondary to hx of PE's. Continue to hold Eliquis currently in the setting of surgery Recommend resumption of Eliquis when OK with surgery. Lovenox in meantime for DVT prophylaxis. (4) Benign essential hypertension: Code(s): I10 - Essential (primary) hypertension Status: Chronic Assessment and Plan: Patient's blood pressure was reviewed on 12/13 Blood pressure remains well controlled. Will continue current medications. (5) CHF (congestive heart failure): Code(s): I50.9 - Heart failure, unspecified Status: Chronic Assessment and Plan: Echo May 2024 showing a normal left ventricular systolic function with EF 55-60% and grade 1 diastolic dysfunction Lasix on hold. Daily weights stable Euvolemic now. Continue to monitor (6) Diabetes mellitus: Code(s): E11.9 - Type 2 diabetes mellitus without complications Status: Chronic Assessment and Plan: A1c 5.1. The patient's blood glucose was reviewed on Glucose remains well controlled. Start AccuCheks covering with sliding scale. Hypoglycemia protocol available as needed. Continue current medications. 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 Tolerating oral intake. Remains on Entereg (8) Abscess of sigmoid colon due to diverticulitis: Code(s): K57.20 - Diverticulitis of large intestine with perforation and abscess without bleeding Status: Chronic Assessment and Plan: Status post colectomy with colorectal anastomosis removal of infected left inguinal and right inguinal mesh Off all abx. (9) Renal failure: Code(s): N19 - Unspecified kidney failure Status: Acute Assessment and Plan: Cr double from 0.7 to 1.3 today. UOP stable. TODD showing no hydronephrosis or renal calculi but some finding sof medical renal disease to suggest an underlying chronic component. Follow. Plan DVT Prophylaxis - Lovenox Code status - DNR Patient has been accepted for SNF Subjective Date/time seen: 12/13/24 14:16 Interval history: 79yo male with dementia, CHF, HTN and BPH admitted by general surgery for diverticulitis with perforation and abscess, colocutaneous fistula. Consulted for medical management. Assuming care. Chart reviewed. He is eating 100% for his meals. Abd pain with movement that he rates as 2/10. He denies CP or SOB. Nml UOP. He has been up walking. Exam Narrative: AF 97.8 149/62 78 20 98% ra Gen - NARD Chest - CTA bilaterally, nml RR CV - RRR S1/S2 Abd - Soft, dressing clean, dry and intact. +BS. Ext - No pedal edema Neuro - Alert and appropriate. Psych - Nml mood and affect Skin - Warm and dry Objective Data Vital Signs Vital Signs: Vital Signs - 24 hr 12/12/24 20:15 12/13/24 06:00 12/13/24 08:00 Temperature 97.2 F L 97.8 F Pulse Rate 80 78 78 Respiratory Rate 16 20 20 Blood Pressure 109/60 149/62 H Pulse Oximetry 98 98 98 Oxygen Delivery Room Air Intake/Output Intake/Output: Intake & Output 12/10/24 12/11/24 12/12/24 12/13/24 23:59 23:59 23:59 23:59 Intake Total 902 361 0841 762 Output Total 1325 Balance -877 840 5293 762 Meds/Results Medications: Active Medications Generic Name Dose Route Start Last Admin Trade Name Freq PRN Reason Stop Dose Admin Acetaminophen 650 mg 12/08/24 18:00 12/13/24 13:06 Acetaminophen 325 Mg Tablet PO 650 mg Q6HR NINFA Administration Hydrocodone Bitart/Acetaminophen 1 tab 12/08/24 16:57 12/12/24 14:47 Hydrocodone/Acetaminophen (*Crx) 5-325 Mg Tablet PO 1 tab Q4H PRN Administration Pain Rated 4-6 Alvimopan 12 mg 12/09/24 21:00 12/13/24 09:12 Alvimopan 12 Mg Capsule PO 12/16/24 20:59 12 mg Q12HR NINFA Administration Amlodipine Besylate 5 mg 12/08/24 09:00 12/13/24 09:12 Amlodipine Besylate 5 Mg Tablet PO 5 mg DAILY NINFA Administration Enoxaparin Sodium 40 mg 12/09/24 09:00 12/12/24 10:43 Enoxaparin 40 Mg/0.4 Ml Syringe SUB-Q 40 mg DAILY NINFA Administration Memantine 10 mg 12/07/24 17:00 12/13/24 09:13 Memantine 10 Mg Tablet PO 10 mg BID NINFA Administration Mirtazapine 7.5 mg 12/07/24 21:00 12/12/24 20:54 Mirtazapine 7.5 Mg Tablet PO 7.5 mg HS NINFA Administration Miscellaneous Information 0 each 12/07/24 00:01 12/13/24 09:13 Brexpiprazole Nonform Can Pt Bring From Home? XX 01/06/25 00:00 Not Given CLARIFY NINFA Morphine Sulfate 2 mg 12/08/24 16:57 12/10/24 03:47 Morphine Sulfate (*Crx) 2 Mg/Ml Inj IV PUSH 2 mg Q2H PRN Administration Breakthrough Pain Rated 4-6 or NPO Morphine Sulfate 4 mg 12/08/24 16:57 Morphine Sulfate (*Crx) 4 Mg/Ml Inj IV PUSH Q2H PRN Breakthrough Pain Rated 7-10 or NPO Naloxone HCl 0.1 mg 12/08/24 16:57 Naloxone Hcl 0.4 Mg/Ml Vial IV PUSH Q2M PRN Opiate Reversal Non-Formulary Medication 1 mg 12/08/24 09:00 Brexpiprazole [Rexulti] PO 01/07/25 08:59 DAILY NINFA Ondansetron HCl 4 mg 12/07/24 09:32 Ondansetron Inj 4 Mg/2 Ml Vial IV PUSH Q6H PRN Nausea And Vomiting Pantoprazole Sodium 40 mg 12/08/24 09:00 12/13/24 09:12 Pantoprazole 40 Mg Tablet PO 40 mg QAM NINFA Administration Sertraline HCl 150 mg 12/08/24 09:00 12/13/24 09:12 Sertraline Hcl 50 Mg Tablet PO 150 mg DAILY NINFA Administration Radiology Results: ITS Impressions Head CT 12/11/24 10:16 IMPRESSION: No acute intracranial findings. Renal Ultrasound 12/13/24 12:13 IMPRESSION: No hydronephrosis or renal calculi. Findings suggesting medical renal disease. Simple cyst within the upper pole of the left kidney, for which no further follow-up is needed. Labs Labs: Laboratory Results - last 24 hr 12/13/24 06:22 Sodium 138 Potassium 3.3 L Chloride 105 Carbon Dioxide 26 Anion Gap 7 BUN 28 H D Creatinine 1.29 Estim Creat Clear Calc 39 Estimated GFR 53 L Glucose 112 H Calcium 8.6
--- NOTE | 2024-12-13 14:51 | PC.NURSE ---
PVR checked per bladder scan with results of 13mls.
[2024-12-13] MEDS: POTASSIUM CHLORIDE 20 MEQ ER TABLET PO (15:34)
[2024-12-13 19:42] VITALS: BP 136/80; PULSE 61; RESP 20; TEMP 37.6; O2SAT 97
[2024-12-13 20:00] VITALS: PULSE 61; RESP 20; O2SAT 97
[2024-12-13] MEDS: MIRTAZAPINE 7.5 MG TABLET PO (20:18)
[2024-12-13 21:23] VITALS: O2SAT 97
[2024-12-14] MEDS: ACETAMINOPHEN 325 MG TABLET 650 MG PO ×2 (06:00→12:32)
[2024-12-14 06:01] VITALS: BP 141/70; PULSE 64; RESP 20; TEMP 38.4; O2SAT 98
[2024-12-14 07:32] LABS: Albumin Level 3.2 g/dL (3.5-5.1); Anion Gap 7 mmol/L (4-12); Blood Urea Nitrogen 19 mg/dL (9-20); Calcium 8.9 mg/dL (8.4-10.2); Carbon Dioxide 28 mmol/L (22-30); Chloride 107 mmol/L (98-107); Estimated CRCL calculation 61 ml/min; Estimated Glomerular Filt Rate > 60; Glucose 96 mg/dL (65-110); Potassium 3.6 mmol/L (3.4-5.0); Sodium 142 mmol/L (137-145)
[2024-12-14 07:47] VITALS: TEMP 36.7
[2024-12-14] MEDS: ALVIMOPAN 12 MG CAPSULE PO (08:37)
[2024-12-14] MEDS: PANTOPRAZOLE 40 MG TABLET PO (08:37)
[2024-12-14] MEDS: SERTRALINE HCL 50 MG TABLET 150 MG PO (08:37)
[2024-12-14] MEDS: MEMANTINE 10 MG TABLET PO (08:37)
[2024-12-14] MEDS: ENOXAPARIN 40 MG/0.4 ML SYRINGE SUB-Q (08:38)
--- NOTE | 2024-12-14 10:09 | P.DS_ITS ---
DS: Admitting Diagnosis Discharge Date 12/14/2024 Admitting Diagnosis Diverticulitis with perforation and abscess, colocutaneous fistula DS: Discharge Diagnosis Discharge Diagnosis (1) Infected prosthetic mesh of abdominal wall: Qualifiers: Encounter type: subsequent encounter Qualified Code(s): T85.79XD - Infection and inflammatory reaction due to other internal prosthetic devices, implants and grafts, subsequent encounter Code(s): T85.79XA - Infection and inflammatory reaction due to other internal prosthetic devices, implants and grafts, initial encounter Status: Acute (2) Abscess of sigmoid colon due to diverticulitis: Code(s): K57.20 - Diverticulitis of large intestine with perforation and abscess without bleeding Status: Chronic (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 Renal ultrasound performed and demonstrated no hydronephrosis or renal calculi. Findings suggesting medical renal disease. Simple cyst within the upper pole of the left kidney, for which no further follow-up was needed. BUN returned to normal levels on 12/14. DS: Summary Hospital Course Reason for hospitalization: Patient presented to the hospital on 12/07 preparation for sigmoid colectomy. He had been hospitalized previously for perforated diverticulitis with abscess. He has undergone percutaneous drainage of the abscess as well as incision and drainage of a superficial abdominal wall abscess. The patient has significant dementia which has limited his complaints both during hospitalizations and at discharge. Non operative management was attempted as well as long-term antibiotics and repeat drainage procedures, but patient has pulled his drain out previously. He continued to have drainage from a wound on his abdomen which likely signified a fistula communication to the colon. He also has a history of prior left inguinal hernia repair with mesh in abscess appears to be within or near the location of the mesh. He was admitted to undergo bowel prep in preparation for the surgery. Hospital Course: Patient was admitted on 12/07/2024 to undergo bowel prep in preparation for surgery the following day. Hospitalist team was consulted to manage patient's other chronic medical diagnoses. On 12/08 patient underwent an open sigmoid colectomy with colorectal anastomosis and removal of infected left inguinal and right inguinal mesh. After the surgery the patient was awakened from ane sthesia, extubated, and transferred to recovery. He was then transferred back to the medical floor. On 12/09 patient was passing flatus and tolerating clear liquids. No bloating or nausea. Pain was managed with morphine and [place]. On 12/10, patient's bowels were moving and he was tolerating full liquids. On 12/11, patient had no new complaints. He denied any abdominal pain or nausea and was tolerating low-fiber diet. He did have some hallucinations in the morning and seemed a little more confused, but this improved throughout the day. Discharge for the following day was discussed. Care coordination spoke with [facility] regarding discharge back to their facility, possibly with home health. On 12/12 patient continued to do well with diet and bowel function. The patient continued to have moderate amount of mostly serous drainage from the wound but no surrounding erythema or tenderness to palpation. Doing well with PT/OT. On 12/13 patient was evaluated by [facility] he suggested that he go to a SNF to gain strength before returning to their facility. Care coordination stated that he was accepted [place], and he was deemed surgically stable for discharge. On 12/14 patient continues to improve. He did have a low-grade fever this morning of 101.1. Patient did not know any new symptoms. Fever not likely caused by abdominal infection, at the incision is clean and intact with no signs of purulence, necrosis, or dehiscence. The incision is still draining some serous fluid, and there is a small area infraumbilical that appears to be draining most of the fluid. No signs of surrounding redness or edema. He is not having any abdominal pain, aside from mild soreness around the incision Patient is tolerating low-fiber diet without nausea or vomiting and having regular bowel movements. Surgically and medically stable for discharge to SNF before returning to his assisted living community. Status at Discharge Functional status at discharge: independent ambulation Time Spent with Patient Time attestation: Total time spent providing and/or coordinating discharge services: Time spent: Less than 30 minutes Exam Const: General: comfortable and no acute distress Eyes: General: appearance normal, both eyes and all related structures Neck: Neck: supple Resp: Effort & Inspection: normal respiratory effort Cardio: Rate: regular rate GI: GI Palp: Yes Soft to palpation, No Guarding due to palpation present (GI) and No Hernia present Auscultation: normal bowel sounds Other: Incision is clean dry and intact with martine. No surrounding redness or edema. Small infraumbilical wound with some serous drainage, but no signs of infection. Dressing change today. Skin: General skin exam: normal color and no rashes or lesions noted Extrem: General: normal to inspection Psych: Other: Memory loss/dementia. Patient did not show any signs of altered mental status today. DS: Data Data Completed and Pending Completed studies during hospitalization: Pending at discharge 12/08/24 14:06 Surgical [PTH] Routine Surgical [PTH] Routine Labs on day of discharge: Labs from last 24 hours 12/14/24 12/14/24 12/13/24 07:43 06:15 20:51 Sodium 142 Potassium 3.6 Chloride 107 Carbon Dioxide 28 Anion Gap 7 BUN 19 Creatinine 0.80 Estim Creat Clear Calc 61 Estimated GFR > 60 Glucose 96 POC Capillary Glucose 94 122 H Calcium 8.9 Phosphorus 3.4 Albumin 3.2 L 12/13/24 16:52 Sodium Potassium Chloride Carbon Dioxide Anion Gap BUN Creatinine Estim Creat Clear Calc Estimated GFR Glucose POC Capillary Glucose 103 Calcium Phosphorus Albumin Discharge Plan Discharge Attending physician on discharge: Segundo Sanches Consulting providers: Evonne Atkins Discharging Clinician: Estrellita Jacinto Anticipated Discharge Date/Time: 12/14/24 11:32 Patient Disposition: SNF Activity: other - see discharge instructions Diet: low fiber Wound Care Instructions: change dressing daily Discharge Instructions: No lifting more than 10-15 lbs for 6 weeks or until surgeon releases restrictions. Walk 3x per day. Stairs are OK. Continue physical therapy to gain strength. No driving for 1 week. Patient is OK to shower upon discharge, but no soaking in bath, pool, hot tub, etc. Nursing staff at SNF to remove martine in one week (12/22/24). Daily dressing changes with 4x4 gauze and medipore tape. Follow up with Dr. Sanches as scheduled on 12/29/24. If fevers persist or any other issues arise, please call [facility] office or return to hospital. Patient Instructions: Apixaban (By mouth), Safe Use of Anticoagulants (GEN) Patient Language: Croatian Stand Alone Forms: General Discharge Information Follow-up/Referrals: Segundo Sanches, DO [Physician] - Keep Reg. Scheduled Appt. (12/29/24) Discharge Medications: Continued levofloxacin 500 mg tablet 500 mg PO DAILY Qty: 14 0RF amlodipine 5 mg tablet 5 mg PO DAILY furosemide 20 mg tablet 20 mg PO DAILY hydroxyzine HCl 25 mg tablet 25 mg PO Q8H mirtazapine 7.5 mg tablet 7.5 mg PO HS polyethylene glycol 3350 17 gram/dose powder 17 g PO DAILY PRN (Reason: constipation) loperamide 2 mg capsule 2 mg PO Q6H PRN (Reason: loose stool) acetaminophen 325 mg tablet 650 mg PO QID PRN (Reason: fever or pain) Rexulti 1 mg tablet 1 mg PO DAILY cholecalciferol (vitamin D3) 125 mcg (5,000 unit) capsule 125 mcg PO DAILY Eliquis 5 mg tablet 2.5 mg PO BID memantine 10 mg tablet 10 mg PO BID Qty: 180 1RF ferrous sulfate 325 mg (65 mg iron) tablet,delayed release (DR/EC) 325 mg PO BID Qty: 180 1RF sertraline 100 mg tablet 150 mg PO DAILY Qty: 135 1RF Patient Comments: QAM omeprazole 40 mg capsule,delayed release(DR/EC) 40 mg PO DAILY Qty: 90 1RF Date of admission: 12/07/24 09:27 Primary Care Provider: Nanci,Mandeep Conklin Admitting Provider: Segundo Sanches Attending physician on admission: Segundo Sanches Condition: Improved
--- NOTE | 2024-12-14 14:36 | PM.IMPN ---
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 Tolerating oral intake. Remains on Entereg Now having fevers; could be related to atelectasis or wound. WBC normal on 12/12. General Surgery was made aware. (2) Abscess of sigmoid colon due to diverticulitis: Code(s): K57.20 - Diverticulitis of large intestine with perforation and abscess without bleeding Status: Chronic Assessment and Plan: Status post colectomy with colorectal anastomosis removal of infected left inguinal and right inguinal mesh Off all abx. (3) Dementia: Qualifiers: Dementia type: unspecified type Dementia severity: unspecified severity Dementia behavioral or psychological symptom: unspecified whether behavioral, psychotic, or mood disturbance or anxiety Qualified Code(s): F03.90 - Unspecified dementia, unspecified severity, without behavioral disturbance, psychotic disturbance, mood disturbance, and anxiety Code(s): F03.90 - Unspecified dementia, unspecified severity, without behavioral disturbance, psychotic disturbance, mood disturbance, and anxiety Status: Chronic Assessment and Plan: He was more confused on 12/11/2024. CT head negative. Fluctuating mental status likely delirium related to surgery, medications. Improved now. Continue memantine; Rexulti on hold. Continue Remeron and Zoloft Provide for safety. (4) Iron deficiency anemia: Qualifiers: Iron deficiency anemia type: unspecified iron deficiency Qualified Code(s): D50.9 - Iron deficiency anemia, unspecified Code(s): D50.9 - Iron deficiency anemia, unspecified Status: Chronic Assessment and Plan: Chronic in nature. Baseline Hgb is between 9.0-10.0. Most recent Hgb is 10.4. Continue to monitor periodically. 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 Holding Eliquis currently in the setting of surgery Recommend resumption of Eliquis when OK with surgery. Lovenox in meantime for DVT prophylaxis. (6) Benign essential hypertension: Code(s): I10 - Essential (primary) hypertension Status: Chronic Assessment and Plan: Patient's blood pressure was reviewed on 12/14 Blood pressure remains well controlled. Will continue current medications. (7) CHF (congestive heart failure): Code(s): I50.9 - Heart failure, unspecified Status: Chronic Assessment and Plan: Echo May 2024 showing a normal left ventricular systolic function with EF 55-60% and grade 1 diastolic dysfunction Lasix on hold. Daily weights stable Euvolemic now. Continue to monitor (8) Diabetes mellitus: Code(s): E11.9 - Type 2 diabetes mellitus without complications Status: Chronic Assessment and Plan: A1c 5.1. The patient's blood glucose was reviewed on 12/14 Glucose remains well controlled. Continue AccuCheks covering with sliding scale. Hypoglycemia protocol available as needed. Continue to monitor (9) Renal failure: Code(s): N19 - Unspecified kidney failure Status: Acute Assessment and Plan: Cr double from 0.7 to 1.3 UOP stable. TODD showing no hydronephrosis or renal calculi but some finding sof medical renal disease to suggest an underlying chronic component. Repeat Cr today back down to normal. Follow. Plan DVT Prophylaxis - Lovenox Code status - DNR Patient has been accepted for SNF. Subjective Date/time seen: 12/14/24 14:36 Interval history: 79yo male with dementia, CHF, HTN and BPH admitted by general surgery for diverticulitis with perforation and abscess, colocutaneous fistula. Consulted for medical management. Walking to the BR. Slept okay. No CP or SOB. Minimal abd pain. +BMs Exam Narrative: Tm 101.1 98.0 141/70 64 20 98% ra Gen - NARD Chest - CTA bilaterally, nml RR CV - RRR S1/S2 Abd - Soft, midline dressing clean, dry and intact. +BS. Ext - No pedal edema Neuro - Alert and appropriate. Psych - Nml mood and affect Skin - Warm and dry Objective Data Vital Signs Vital Signs: Vital Signs - 24 hr 12/13/24 19:42 12/13/24 20:00 12/13/24 21:23 Temperature 99.6 F Pulse Rate 61 61 Respiratory Rate 20 20 Blood Pressure 136/80 Pulse Oximetry 97 97 97 Oxygen Delivery Room Air Room Air 12/14/24 06:01 12/14/24 07:47 12/14/24 08:00 Temperature 101.1 F H 98.0 F Pulse Rate 64 Respiratory Rate 20 Blood Pressure 141/70 H Pulse Oximetry 98 Oxygen Delivery Room Air Intake/Output Intake/Output: Intake & Output 12/11/24 12/12/24 12/13/24 12/14/24 23:59 23:59 23:59 23:59 Intake Total 620 1270 1242 1290 Balance 620 1270 1242 1290 Meds/Results Radiology Results: ITS Impressions Head CT 12/11/24 10:16 IMPRESSION: No acute intracranial findings. Renal Ultrasound 12/13/24 12:13 IMPRESSION: No hydronephrosis or renal calculi. Findings suggesting medical renal disease. Simple cyst within the upper pole of the left kidney, for which no further follow-up is needed. Labs Labs: Laboratory Results - last 24 hr 12/13/24 12/13/24 12/14/24 16:52 20:51 06:15 Sodium 142 Potassium 3.6 Chloride 107 Carbon Dioxide 28 Anion Gap 7 BUN 19 Creatinine 0.80 Estim Creat Clear Calc 61 Estimated GFR > 60 Glucose 96 POC Capillary Glucose 103 122 H Calcium 8.9 Phosphorus 3.4 Albumin 3.2 L 12/14/24 12/14/24 07:43 11:28 Sodium Potassium Chloride Carbon Dioxide Anion Gap BUN Creatinine Estim Creat Clear Calc Estimated GFR Glucose POC Capillary Glucose 94 96 Calcium Phosphorus Albumin
== END 2024-12-14 13:40 | DRG 330 ==
PROVIDERS: Internal Medicine; Nurse Practitioner Adult Health; Nurse Practitioner Family; Admitting Provider Surgery; PCP Internal Medicine
PROC: 0DTN0ZZ Resection of Sigmoid Colon, Open Approach (ICD-10-PCS; CPT 44143; principal; 2024-12-08 12:00)
DX: K57.20 Diverticulitis of large intestine with perforation and abscess without bleeding (principal); F05 Delirium due to known physiological condition; K63.2 Fistula of intestine; T85.79XA Infection and inflammatory reaction due to other internal prosthetic devices, implants and grafts, initial encounter; I50.32 Chronic diastolic (congestive) heart failure; F03.90 Unspecified dementia, unspecified severity, without behavioral disturbance, psychotic disturbance, mood disturbance, and anxiety; I11.0 Hypertensive heart disease with heart failure; N40.0 Benign prostatic hyperplasia without lower urinary tract symptoms; K21.9 Gastro-esophageal reflux disease without esophagitis; E11.9 Type 2 diabetes mellitus without complications; D50.9 Iron deficiency anemia, unspecified; N28.9 Disorder of kidney and ureter, unspecified; M19.90 Unspecified osteoarthritis, unspecified site; Z85.820 Personal history of malignant melanoma of skin; Z98.42 Cataract extraction status, left eye; Z98.41 Cataract extraction status, right eye; Z87.891 Personal history of nicotine dependence; Z79.01 Long term (current) use of anticoagulants; Z86.711 Personal history of pulmonary embolism
CPT/HCPCS: 36415; 70450; 76775; 80048; 80053; 80069; 82948; 83036; 83735; 84100; 85025; 85027; 85610; 86850; 86900; 86901; 88300; 88307; 93005; 97162; 97165; A9270; C1729; J0690; J1100; J1171; J1650; J1836; J1885; J2003; J2270; J2405; J2704; J3010; J3480; J7120